=== PATIENT | male | born 1970 | race African-American/Black ===

== ENCOUNTER → 2023-01-03 12:29 | Outpatient (CLI) | payer MEDICARE, MEDICAID, SELFPAY ==
--- NOTE | 2023-01-03 | DI.RAD_ITS ---
Exam(s) XR FOOT LT COMPLETE EXAM: XR FOOT LT COMPLETE CLINICAL HISTORY: LT FOOT PAIN, M79.672. TECHNIQUE: 2D digital imaging was performed. Three views. COMPARISON: No exams were available for comparison FINDINGS: Exam limited by suboptimal positioning due to patient condition. BONES: No acute fracture is present. No bony destructive lesion is seen. JOINTS: No dislocation present. Hallux valgus 1st metatarsal varus. Overlap of 1st and 2nd toes. SOFT TISSUE: Diffuse swelling. Vascular calcifications. No foreign body or abnormal gas collection. IMPRESSION: No acute abnormality DATA REPOSITORY: RADIATION DOSE DELIVERED:
== END ==
PROVIDERS: PCP Family Medicine; Visit Provider Physician Assistant Medical
DX: M79.672 Pain in left foot (principal)
CPT/HCPCS: 73630

== ENCOUNTER → 2023-01-10 13:58 | Outpatient (BNVA) | payer MEDICARE, MEDICAID, SELFPAY | PROVIDERS: PCP Family Medicine; Referring Provider Family Medicine; Visit Provider Podiatrist | DX: M79.672 Pain in left foot (principal); G80.9 Cerebral palsy, unspecified; M21.41 Flat foot [pes planus] (acquired), right foot; M21.42 Flat foot [pes planus] (acquired), left foot; S90.32XA Contusion of left foot, initial encounter; E11.9 Type 2 diabetes mellitus without complications; M25.572 Pain in left ankle and joints of left foot; M25.472 Effusion, left ankle; L60.2 Onychogryphosis; X58.XXXA Exposure to other specified factors, initial encounter | CPT/HCPCS: 11719; 99203 ==

== ENCOUNTER → 2023-01-24 09:59 | Outpatient (BNVA) | payer MEDICARE, MEDICAID, SELFPAY | PROVIDERS: PCP Family Medicine; Referring Provider Family Medicine; Visit Provider Physical Therapy Assistant ==

== ENCOUNTER → 2023-01-24 10:18 | Outpatient (BNVA) | payer MEDICARE, MEDICAID, SELFPAY | PROVIDERS: PCP Family Medicine; Referring Provider Family Medicine; Visit Provider Podiatrist | DX: S90.32XD Contusion of left foot, subsequent encounter; X58.XXXD Exposure to other specified factors, subsequent encounter; M25.472 Effusion, left ankle; M25.572 Pain in left ankle and joints of left foot; I73.89 Other specified peripheral vascular diseases; E11.9 Type 2 diabetes mellitus without complications; G80.9 Cerebral palsy, unspecified; M21.41 Flat foot [pes planus] (acquired), right foot; M21.42 Flat foot [pes planus] (acquired), left foot; L60.2 Onychogryphosis | CPT/HCPCS: 99213 ==

== ENCOUNTER → 2023-10-25 13:00 | Outpatient (BNVA) | payer MEDICARE, MEDICAID, SELFPAY | PROVIDERS: PCP Family Medicine; Referring Provider Family Medicine; Visit Provider Podiatrist | DX: M79.672 Pain in left foot (principal); L97.529 Non-pressure chronic ulcer of other part of left foot with unspecified severity | CPT/HCPCS: 29580; 29850 ==

== ENCOUNTER 2023-10-25 14:38 | Outpatient (CLI) | payer MEDICARE, MEDICAID, SELFPAY ==
--- NOTE | 2023-10-25 14:37 | DI.RAD_ITS ---
Exam(s) XR FOOT LT COMPLETE EXAM: XR FOOT LT COMPLETE CLINICAL HISTORY: M79.672 Pain in left midfoot.. TECHNIQUE: 2D digital imaging was performed. Three views. COMPARISON: CR XR FOOT LT COMPLETE from 01/03/2023 FINDINGS: Exam is limited by immobility and overlying material. BONES: No acute fracture is present. No bony destructive lesion is seen. JOINTS: No dislocation present. Severe pes planus. Hallux valgus. Second toes overlapping the 1st toe. SOFT TISSUE: Normal. IMPRESSION: Limited exam. Stable appearance of the foot. Acute abnormality. DATA REPOSITORY: RADIATION DOSE DELIVERED:
--- OUTSIDE RECORDS SUMMARY | 2023-10-25 14:40 | XMS_ITS | Encounter Summary ---
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); Type 2 diabetes mellitus without complications ([facility]-CMS) Social History Tobacco Use Types Packs/Day Years Used Date Smoking Tobacco: Never Smokeless Tobacco: Never Interpersonal Safety Answer Date Record ed Physically Hurt Never 10/07/2019 Verbally Threaten Not on file 10/07/2019 Sex and Gender Information Value Date Recorded Sex Assigned at Not on file Gender Identity Male 06/12/2019 8:16 EDT Sexual Orientation Not on file documented as of this encounter Functional Status Functional Status Response Date of Assess ment Are you deaf or do you have serious difficulty h earing? No 03/09/2021 Because of a physical, menta l, or emotional condition, does this person have difficulty doing errands alone such as visiting a doctor's office or shopping? Yes 02/10/2016 Cognitive Status Response Date of Assessm ent Because of a physical, menta l, or emotional condition, does this person have serious difficulty concentrating, remembering, or making decisions? No 02/10/2016 documented as of this encounter Plan of Treatment Not on file documented as of this encounter Procedures Procedure Name Priority Date/Time Associated Diagnosis Comments VITAMIN D (25,[place]) Today 05/07/2023 10: 45 EST 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HCC-CMS) Type 2 diabetes mellitus without complications (HCC-CMS) COMPLETE BLOOD COUNT AND DIFFERENTIAL Today 05/07/2023 10:45 EST 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HCC-CMS) Type 2 diabetes mellitus without complications (HCC-CMS) PSA SCREEN Today 05/07/2023 10:45 EST 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HCC-CMS) Type 2 diabetes mellitus without complications (HCC-CMS) LIPID PROFILE (INCLUDES CHOLESTEROL, TRIGLYCERIDES, HDL, LDL) Today 05/07/2023 10:45 EST 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HCC-CMS) Type 2 diabetes mellitus without complications (HCC-CMS) COMPREHENSIVE METABOLIC PANEL (CMP) Today 05/07/2023 10:45 EST 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HCC-CMS) Type 2 diabetes mellitus without complications (HCC-CMS) documented in this encounter Results * LIPID PROFILE (INCLUDES CHOLESTEROL, TRIGLYCERIDES, HDL, LDL) (05/07/2023 10:45 EST) Cholesterol 120 <200 mg/dL 05/07/2023 16:55 [facility] Comment:Note that therapeuti c goals will differ between patients based on cardiac risk factors and current medical therapy. HDL 45 >=40 mg/dl 05/07/2023 16:55 [facility] Comment:Note that therapeuti c goals will differ between patients based on cardiac risk factors and current medical therapy. LDL, Calculated 53 <160 mg/dL 16:55 [facility] Comment:Note that therapeuti c goals will differ between patients based on cardiac risk factors and current medical therapy. Triglyceride 108 <=150 mg/dL 05/07/2023 16:55 [facility] Comment:Note that therapeuti c goals will differ between patients based on cardiac risk factors and current medical therapy. Chol/HDL Ratio 2.7 See Note 05/07/2023 16:55 [facility] Comment: NOTE: Desirable Ratio = <4.1 Patient At Risk Ratio = >5.0(Males) ?>6.0(Females) Non HDL Cholesterol 75 <160 mg/dL 05/07/2023 16:55 [facility] Comment:Note that therapeuti c goals will differ between patients based on cardiac risk factors and current medical therapy. Blood VENOUS BLOOD / Unknown 05/07/2023 10:45 EST 05/07/2023 16:27 EST Suyapa Duarte MD CHEMISTRY & BLOOD GA S ORDERABLES Performing Organization Address City/State/[facility] Co de Phone Number [facility] [address] [place] [address] * COMPREHENSIVE METABOLIC PANEL (CMP) (05/07/2023 10:45 EST) Sodium 140 136 - 145 mmol/L 05/07/2023 16:55 [facility] Potassium 4.5 3.5 - 5.0 mmol/L 05/07/2023 16:55 [facility] Chloride 103 96 - 110 mmol/L 05/07/2023 16:55 [facility] CO2 Total 28 22 - 32 mmol/L 05/07/2023 16:55 [facility] Glucose 92 70 - 99 mg/dl 05/07/2023 16:55 [facility] BUN 20 10 - 26 mg/dL 05/07/2023 16:55 [facility] Creatinine 0.85 0.66 - 1.25 mg/dL 05/07/2023 16:55 [facility] eGFR 105 >60 mL/min/1.7 3m2 05/07/2023 16:55 [facility] Total Protein 7.0 6.3 - 8.2 g/dL 05/07/2023 16:55 [facility] Albumin 4.3 3.4 - 4.9 g/dL 05/07/2023 16:55 [facility] Alkaline Phosphatase 64 38 - 126 U/L 05/07/2023 16:55 [facility] AST 32 15 - 46 U/L 05/07/2023 16:55 [facility] ALT 34 <50 U/L 05/07/2023 16:55 [facility] Bilirubin, Total 0.5 <1.4 mg/dL 05/07/19 16:55 [facility] Calcium 10.1 8.5 - 10.5 mg/dL 05/07/2023 16:55 [facility] Albumin/Globulin Ratio 1.6 1.0 - 2.5 05/07/2023 16:55 [facility] Anion Gap 9 5 - 14 mmol/L 05/07/2023 16:55 [facility] Blood VENOUS BLOOD / Unknown 05/07/2023 10:45 EST 05/07/2023 16:27 EST Suyapa Duarte MD CHEMISTRY & BLOOD GA S ORDERABLES Performing Organization Address City/State/[facility] Co de Phone Number [facility] [address] [place] [address] * (ABNORMAL) PSA SCREEN (05/07/2023 10:45 EST) PSA 3.720(H) <=3.500 ng/mL 05/07/2023 17:[address] [facility] Blood VENOUS BLOOD / Unknown 05/07/2023 10:45 EST 05/07/2023 16:[address] [facility] - 05/07/2023 17:29 EST NOTE: Serum PSA concentration should not be interpreted as absolute evidence for the presence or absence of malignant disease. Assayed on Interview Rocket [id number] using chemiluminescent technology.??Values obtained by using different assay methods cannot be used interchangeably. ?? Suyapa Duarte MD CHEMISTRY & BLOOD GA S ORDERABLES [facility] [address] [place] [address] * VITAMIN D (25,[place]) (05/07/2023 10:45 EST) Pathologist [facility] 25OH Vitamin D Tot 74 30 - 100 ng/mL 05/07/2023 17:21 [facility] Blood VENOUS BLOOD / Unknown 05/07/2023 10:45 EST 05/07/2023 16:27 EST Suyapa Duarte MD CHEMISTRY & BLOOD SC S ORDERABLES Performing Organization Address City/[facility]/ZIP Co de Phone Number [facility] [address] [place] [address] * (ABNORMAL) COMPLETE BLOOD COUNT AND DIFFERENTIAL (05/07/2023 10:45 EST) [facility] WBC 8.94 4.00 - 10.40 K/cmm 05/07/2023 16:36 [facility] RBC 4.68 4.36 - 5.78 M/cmm 05/07/2023 16:36 [facility] Hemoglobin 14.4 13.8 - 17.3 g/dL 05/07/2023 16:36 [facility] HCT 43.6 39.5 - 50.2 % 05/07/2023 16:36 [facility] MCV 93 81 - 95 fL 05/07/2023 16:36 [facility] MCH 30.8 27.6 - 33.0 pg 05/07/2023 16:36 [facility] MCHC 33.0 32.8 - 36.4 g/dL 05/07/2023 16:36 [facility] RDW-CV 15.4(H) <14.2 % 05/07/2023 16:36 [facility] RDW-SD 52.4(H) <46.0 fl 05/07/2023 16:36 [facility] PLT 163 141 - 377 K/cmm 05/07/2023 16:36 [facility] MPV 12.5 9.5 - 12.7 fL 05/07/2023 16:36 [facility] % Neutrophils 49.4 % 05/07/2023 16:36 [facility] % Lymphocytes 40.5 % 05/07/2023 16:36 [facility] % Monocytes 7.9 % 05/07/2023 16:36 [facility] % Eosinophils 1.3 % 05/07/2023 16:36 [facility] % Basophils 0.7 % 05/07/2023 16:36 [facility] % Immature Grans 0.2 % 05/07/19 16:36 [facility] Absolute Neutrophils 4.41 2.20 - 8.85 K/cmm 05/07/2023 16:36 [facility] Absolute Lymphocytes 3.62(H) 1.09 - 3.30 K/cmm 05/07/2023 16:36 [facility] Absolute Monocytes 0.71 0.10 - 0.80 K/cmm 05/07/2023 16:36 [facility] Absolute Eosinophils 0.12 0.03 - 0.61 K/cmm 05/07/2023 16:36 [facility] ABS Basophils 0.06 0.01 - 0.11 K/cmm 05/07/2023 16:36 [facility] Absolute Immature Grans 0.02 0.00 - 0.06 K/cmm 05/07/2023 16:36 [facility] Type of Differential: Auto 05/07/2023 16:36 [facility] Blood VENOUS BLOOD / Unknown 05/07/2023 10:45 EST 05/07/2023 16:27 EST Suyapa Duarte MD PACKAGES & DNA PROBE ORDERABLES [facility] [address] [place] [address] documented in this encounter Visit Diagnoses Diagnosis 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HCC-CMS) Congenital quadriplegia Type 2 diabetes mellitus without complications (HCC-CMS) Type II or unspecified type diabetes mellitus without mention of complication, not stated as uncontrolled documented in this encounter Care Teams Scientific Editor Relationship Specialty Start Date End Date Suyapa Duarte MD [address] [place] [phone] PCP - General Family Medicine - Primary Care 03/09/21 documented as of this encounter
--- OUTSIDE RECORDS SUMMARY | 2023-10-25 14:40 | XMS_ITS | Encounter Summary ---
Author Organization [facility] Address [address] [place] [address] Care Team Providers Care Fbi Investigator Name Role Phone Suyapa Duarte MD Primary Care Provider [phone] Reason for Referral * Medication Prior Authorization (Routine/Next Available) - Authorized Specialty Diagnoses / Procedures Referred By Rubina perkins Referred To Contact Physical Medicine and Rehab Diagnoses 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HCC-CMS) Cora Foster MD [address] [place] [phone] [facility] [place] [address] [place] [address] Referral ID Status Reason Start Date Expiration Date Visits Requested Visits Authorized [id number] Authorized Medication Prior Authorization 2 04/05/2023 1 1 Question Answer Medication to be Prior Authorized: Botox A 300 units Comments The purpose of this request is to inform precertification staff that the requested service needs to be reviewed for prior-authorization. Reason for Visit * Reason Comments Follow-up * Medication Prior Authorization (See Order Priority) - Authorization Not Required Specialty Diagnoses / Procedures Referred By Rubina perkins Referred To Contact Physical Medicine and Rehab Diagnoses Spasticity Cora Foster MD [address] [place] [phone] [facility] [address] [place] [address] Referral ID Status Reason Start Date Expiration Date Visits Requested Visits Authorized [id number] Authorization Not Required Medication Prior Authorization 2 1 1 Encounter Details Date Type Department Care Team (Latest Contact Info) Description 02/02/2022 13:00 EST Procedure visit [facility] Physical Medicine & Rehabilitation - [address] [place] [address] Cora Foster MD [address] [place] [phone] 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HCC-CMS) (Primary Dx) Social History Tobacco Use Types Packs/Day Years [...] No 02/10/2016 documented as of this encounter Progress Notes * Cora Foster MD - 02/02/2022 1300 EST [facility] Subjective: Patient ID: Janes Gooden is an 51 y.o.. male Chief Complaint Patient presents with ??? Follow-up HPI Janes Gooden returns for follow-up of his spastic quadriplegic cerebral palsy. His last evaluation and treatment was on 11/03/2021. He received 300 units of Botox. Janes reports he felt the Botox definitely decrease the tightness in his legs and makes him feel more confident and consistent with his transfer movements which he gets partial assist for. He presently is feeling the return of some of the early tightness. He has had good carryover so farfrom his last Botox injections. He is accompanied here today by his primary caregiver and one of his staff managers, Ruiz and Ankit, and their observations are that his transfers have really been staying consistently better. The identified that it is helpful to make sure he has voided if needed before he attempts to transfer thushis spasticity does not kick in in the middle of the transfer if his bladder is emptying into his protective garment. He has had no return of shoulder pain. I also note he has been spending a bit more time resting in bed instead of falling asleep in his chair and feels like that adds to stretching his legs out some. The decision was to not proceed with his standing frame at home as it was not something he could consistently access as it would take 2 people to get him in and out of it safely and also they were concerned about the fatigue that it would create for him. Has had no skin breakdown. Still managing in his apartment with staff support. Patient Active Problem List Diagnosis ??? 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HCC-CMS) ([facility]) No past medical history on file. Past Surgical History: Procedure Laterality Date ??? HIP SURGERY ??? HIP SURGERY ??? SPINE SURGERY gavin holland Family history: as per EHR Social history: as per EHR Current Outpatient Medications Medication Sig Note Dispense Refill ??? acetaminophen (TYLENOL) 325 mg tablet Take 325 mg by mouth as needed prn 05/10/2016: PRN per patient ??? allopurinol (ZYLOPRIM) 100 mg tablet Take 200 mg by mouth daily. 200 mg AM ??? atenolol (TENORMIN) 50 mg tablet Take 100 mg by mouth daily. ??? botulinum toxin Type A (BOTOX) 100 unit injection Inject into the muscle. ??? Mgbbrjt-Rybzuidgx-Unlx 333-133-5 mg Tab Take 2 Tabs by mouth daily. ??? celecoxib (CELEBREX) 100 mg capsule Take 100 mg by mouth as needed. ??? diclofenac-misoprostoL (ARTHROTEC 50) 50-200 mg-mcg per tablet Take 1 Tab by mouth 2 times daily as needed. ??? divalproex (DEPAKOTE) 500 mg delayed release tablet Take 500 mg by mouth 2 times daily. ??? ergocalciferol, vitamin D2, (VITAMIN D2 ORAL) Take 50,000 Int'l Units by mouth. Biweekly ??? levothyroxine (SYNTHROID) 112 mcg tablet Take 112 mcg by mouth daily. ??? lisinopriL (PRINIVIL) 20 mg tablet Take 20 mg by mouth daily. ??? Magnesium Oxide 84.5 mg (140 mg) capsule Take by mouth 4 times daily. ??? METFORMIN HCL (METFORMIN ORAL) Take 500 mg by mouth 2 times daily. ??? OMEGA-3 FATTY ACIDS/FISH OIL (OMEGA 3 FISH OIL ORAL) Take by mouth 2 times daily. ??? oxybutynin (DITROPAN XL) 15 mg CR tablet Take 15 mg by mouth daily. ??? potassium chloride (KLOR-CON) 20 mEq packet Take 20 mEq by mouth 2 times daily ??? simvastatin (ZOCOR) 40 mg tablet Take 40 mg by mouth every evening. ??? triamterene-hydrochlorothiazide (MAXZIDE) 75-50 mg per tablet Take 1 Tab by mouth daily. ??? VITAMIN B COMPLEX (B-50 COMPLEX ORAL) Take by mouth daily. No current facility-administered medications for this visit. Allergies Allergen Reactions ??? Antifungal [Undecylenic Ac-Zinc Undecylena] All oral antifungals ??? Asa [Aspirin] ??? Chocolate Flavor ??? Ibuprofen ??? Lactose Intolerance (Lactase) ??? Naproxen ??? Other - See Comments tuna ??? Salicylates ??? Tomato Diarrhea ??? Sulfa (Sulfonamide Antibiotics) Swelling Swelling of lower lip ROS - See HPI Objective: No data found. There is no height or weight on file to calculate BMI. Physical Exam Alert and fully participatory and cooperative with exam and procedure Speech continues with some baseline dysarthria. He is able to communicate needs and questions will. Spastic quadriplegia Continued hip and knee flexion contractures. Strong resistance to stretch of his hamstrings with 4 at maximum endrange. Today his knee flexion contractures keep an amount of about between 30 to 40 degrees of full extension. Did not measure witha goniometer today. In the clinic setting he is a full assist over to the exam table with both of his providers helpingwith that transfer. He can partially assist with turning over onto his stomach. Injections are donewith him on his stomach. Assessment: Janes Gooden is a 51-year-old gentleman with spastic quadriplegic CP. Responding to Botox injections in his posterior thigh muscles since January 2008. Did well with the last injections. He is appropriate for repeat treatment today. Botox 300 units was injected without complication. Please see separate procedure note. Prior authorization is being requested for 300 units for next planned injection. Reviewed and reinforced importance of continuing with his stretching support by staff. Plan: Encounter Diagnoses Name Primary? 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HCC-CMS) ([facility]) Yes Med Orders Placed This Visit and Additions to the Medication List Medications ??? botulinum toxin Type A (BOTOX) injection 300 Units Other Orders Placed This Visit Procedures ??? Ambulatory Clinic Admin Med Prior Authorization Request ([id number]) Future Appointments Date Time Provider Department Center 04/27/2022 13:45 Cora Foster MD [facility] None Portions of this document have been prepared with speech recognition software or keyboard sql database programmer techniques. Minor irregularities or keyboarding misprints may be present. I spent a total of 10 minutes on the date of this encounter meeting with the patient and reviewing documentation/coordinating care as described in the above note. This was separate from any procedures performed at the time of the visit. documented in this encounter Procedure Notes * Cora Foster MD - 02/02/2022 1300 EST Procedure: Procedures After reviewing history and exam as per progress note, we proceeded with Botulinum Toxin injectionsas reviewed below. Botulinum Toxin Injection Procedure Note Pre-Procedure Diagnosis: Spastic tetraplegia Indications: spasticity that adversely impacts function Procedure Details Consent was obtained after discussing possible side effects and complications including risk for systemic absorption, generalized weakness, swallowing dysfunction, and respiratory suppression. The limb(s) for injection were identified and a time out called to re-identify the correct limb forinjection. After prepping the skin with alcohol overlying the following muscles, botlinum toxin wasinjected intramuscularly using EMG needle guidance as follows. EMG guidance is used for all muscles and is required to confirm muscle location and greatest efficacy of dose. Pts with spasticity need careful localizaton of the most active muscle fascicles. US guidance is necessary in those areas where localization is difficult just by EMG and anatomy, toavoid at risk structures such as arteries, veins , nerves. Additionally, in muscles that have had repeated injections, to assess the areas that are less fibrotic and thus more receptive to further Botox. US guidance used in combination with EMG needle guidance at muscles if documented below (US). Images saved in short axis view if noted () Position: Prone on exam table. Blue needle ?? 04/29/20 ??07/29/2020 01/21/21 04/15/21 07/28/21 11/03/21 02/02/2022 Left ? Semimemb ??75 75 75 100 100 100 100 LHBF ??50 ??75 75 50 50 50 50 SH BF ??25 ?? Right ? Semimem ??75 ??75 75 100 100 100 100 LH BF ??50 ??75 75 50 50 50 50 SH BF ??25 ?? Total ??300 ??300 300 300 300 300 300 Total botox units injected: 300 Total botox units wasted: 0 Plan: Return to clinic for assessment of Botox efficacy and repeat Botox injections in 3 months. Botox 300 units was injected without complication. Prior authorization is being requested for 300 units for next planned injection. Future Appointments Date Time Provider Department Center 04/27/2022 13:45 [facility] documented in this encounter Plan of Treatment Scheduled Referrals Name Type Priority Associated Diagnoses Order Schedule AMB CONS/FOLLOW UP CLINIC ADMIN MED PRIOR AUTHORIZATION REQUEST Outpatient Referral Routine/Next Available 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HCC-CMS) ([facility]) Expected: 02/09/2022 (Approximate), Expires: 02/02/2023 documented as of this encounter Visit Diagnoses Diagnosis 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HCC-CMS)- Primary Congenital quadriplegia documented in this encounter Administered Medications Inactive Administered Medications - up to 3 most recent administrations Medication Order MAR Action Action Date Dose Rate Site botulinum toxin Type A (BOTOX) injection 300 Units 300 Units, intramuscular, NOW X1, 1 dose, On Marie 02/02/22 at 0000, Routine Given 02/02/2022 13:29 EST 300 Units documented in this encounter Care Teams Fbi Investigator Relationship Specialty Start Date End Date Suyapa Duarte MD [address] [place] [phone] PCP - General Family Medicine - Primary Care 03/09/21 documented as of this encounter
--- OUTSIDE RECORDS SUMMARY | 2023-10-25 14:40 | XMS_ITS | Encounter Summary ---
Author Organization [facility] Address [address] [place] [address] Care Team Providers Care Molded Frames Assembler Name Role Phone Suyapa Duarte MD Primary Care Provider [phone] Encounter Details Date Type Department Care Team (Latest Contact Info) Description 11/08/2022 13:51 EDT - 11/08/2022 23:59 EDT Hospital Encounter [facility] - Main [address] [address] Signal Worker, [facility] Discharge Disposition: Home or Self Care Social History Tobacco Use Types Packs/Day Years [...] No 02/10/2016 documented as of this encounter Medications at Time of Discharge Medication Sig Dispensed Refills Start Date End Date acetaminophen (TYLENOL) 325 mg tablet Take 1 Tablet by mouth as needed. prn allopurinol (ZYLOPRIM) 100 mg tablet Take 2 Tablets by mouth daily. 200 mg AM atenolol (TENORMIN) 50 mg tablet Take 2 Tablets by mouth daily. botulinum toxin Type A (BOTOX) 100 unit injection Inject into the muscle. Nwkacin-Ogootidaj-Zvhn 333-133-5 mg Tab Take 2 Tabs by mouth daily. celecoxib (CELEBREX) 100 mg capsule Take 1 Capsule by mouth as needed. diclofenac-misoprostoL (ARTHROTEC 50) 50-200 mg-mcg per tablet Take 1 Tablet by mouth 2 times daily as needed. divalproex (DEPAKOTE) 500 mg delayed release tablet Take 1 Tablet by mouth 2 times daily. ergocalciferol, vitamin D2, (VITAMIN D2 ORAL) Take 50,000 Int'l Units by mouth. Biweekly levothyroxine (SYNTHROID) 112 mcg tablet Take 1 Tablet by mouth daily. lisinopriL (PRINIVIL) 20 mg tablet Take 1 Tablet by mouth daily. Magnesium Oxide 84.5 mg (140 mg) capsule Take by mouth 4 times daily. METFORMIN HCL (METFORMIN ORAL) Take 500 mg by mouth 2 times daily. 07/14/2010 OMEGA-3 FATTY ACIDS/FISH OIL (OMEGA 3 FISH OIL ORAL) Take by mouth 2 times daily. oxybutynin (DITROPAN XL) 15 mg CR tablet Take 1 Tablet by mouth daily. potassium chloride (KLOR-CON) 20 mEq packet Take 20 mEq by mouth 2 times daily. simvastatin (ZOCOR) 40 mg tablet Take 1 Tablet by mouth every evening. triamterene-hydrochloroth iazide (MAXZIDE) 75-50 mg per tablet Take 1 Tablet by mouth daily. VITAMIN B COMPLEX (B-50 COMPLEX ORAL) Take by mouth daily. documented as of this encounter Discharge Disposition Disposition Code Departure Means Destination Home or Self Care documented in this encounter Plan of Treatment Not on file documented as of this encounter Visit Diagnoses Not on filedocumented in this encounter Care Teams Molded Frames Assembler Relationship Specialty Start Date End Date Suyapa Duarte MD [address] [place] [phone] PCP - General Family Medicine - Primary Care 03/09/21 documented as of this encounter
--- OUTSIDE RECORDS SUMMARY | 2023-10-25 14:40 | XMS_ITS | Clinical Summary ---
Author Organization [facility] Address [address] [place] [address] Care Team Providers Care Director Personal Name Role Phone Suyapa Duarte MD Primary Care Provider [phone] Allergies Active Allergy Reactions Criticality Noted Date Comments Undecylenic Ac-Zinc Undecylena 08/27/2009 All oral antifungals Aspirin 08/11/2009 Chocolate Flavor 10/25/2010 Ibuprofen 08/11/2009 Lactose Intolerance (Lactase) 08/11/2009 Naproxen 08/11/2009 Other - See Comments 10/25/2010 tuna Salicylates 08/11/2009 Sulfa (Sulfonamide Antibiotics) Swelling Low 07/29/2020 Swelling of lower lip Tomato Diarrhea 08/06/2019 Medications Medication Sig Dispensed Refills Start Date End Date Status divalproex (DEPAKOTE) 500 mg delayed release tablet Take 1 Tablet by mouth 2 times daily. Active atenolol (TENORMIN) 50 mg tablet Take 2 Tablets by mouth daily. Active allopurinol (ZYLOPRIM) 100 mg tablet Take 2 Tablets by mouth daily. 200 mg AM Active potassium chloride (KLOR-CON) 20 mEq packet Take 20 mEq by mouth 2 times daily. Active VITAMIN B COMPLEX (B-50 COMPLEX ORAL) Take by mouth daily. Active triamterene-hydrochlo rothiazide (MAXZIDE) 75-50 mg per tablet Take 1 Tablet by mouth daily. Active acetaminophen (TYLENOL) 325 mg tablet Take 1 Tablet by mouth as needed. prn Active METFORMIN HCL (METFORMIN ORAL) Take 500 mg by mouth 2 times daily. 07/14/2010 Active Tbgerah-Zdvbhvoyb-Hmb c 333-133-5 mg Tab Take 2 Tabs by mouth daily. Active simvastatin (ZOCOR) 40 mg tablet Take 1 Tablet by mouth every evening. Active celecoxib (CELEBREX) 100 mg capsule Take 1 Capsule by mouth as needed. Active oxybutynin (DITROPAN XL) 15 mg CR tablet Take 1 Tablet by mouth daily. Active OMEGA-3 FATTY ACIDS/FISH OIL (OMEGA 3 FISH OIL ORAL) Take by mouth 2 times daily. Active levothyroxine (SYNTHROID) 112 mcg tablet Take 1 Tablet by mouth daily. Active Magnesium Oxide 84.5 mg (140 mg) capsule Take by mouth 4 times daily. Active botulinum toxin Type A (BOTOX) 100 unit injection Inject into the muscle. Active ergocalciferol, vitamin D2, (VITAMIN D2 ORAL) Take 50,000 Int'l Units by mouth. Biweekly Active lisinopriL (PRINIVIL) 20 mg tablet Take 1 Tablet by mouth daily. Active diclofenac-misoprosto L (ARTHROTEC 50) 50-200 mg-mcg per tablet Take 1 Tablet by mouth 2 times daily as needed. Active Hospital, Clinic, or Other Facility Administered Medication Ordered Dose Route Frequency Start Date End Date Status botulinum toxin Type A (BOTOX) injection 300 Units 300 Units IM NOW X1 10/23/2023 10/23/19 24 Ended Active Problems Patient Care Coordination No te Formatting of this note migh t be different from the original. Call father's (Tyler) cellphone at [phone] for all appointment scheduling/questions; Father's address is [address] [place] [address] Patient has given permission for [facility] to verbally discuss the following information with Desiree Gooden who has the following relationship to the patient: Mother: Scheduling/Appt/Billing/Payment Information (does not include clinical information unless specifically indicated with separate option) Permission remains in effect until the patient elects to revoke it. 2021-Verified NON-ACO [place] Medicaid TCN:[id number] Bronson Cobosherminia 04/19/2021 16:31 Problem Noted Date Diagnosed Date 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HCC-CMS) Encounters Date Type Department Care Team Description 10/23/2023 15:15 EDT Procedure visit [facility] Physical Medicine & [place] [address] [place] [address] Mauricio Antonio MD Spasticity (Primary Dx) from Last 3 Months Surgical History Surgery Date Site/Laterality Comments SPINE SURGERY alonso rods HIP SURGERY HIP SURGERY Social History Tobacco Use Types Packs/Day Years Used Date Smoking Tobacco: Never Smokeless Tobacco: Never Interpersonal Safety Answer Date Record ed Physically Hurt Never 10/07/2019 Verbally Threaten Not on file 10/07/2019 Sex and Gender Information Value Date Recorded Sex Assigned at Not on file Gender Identity Male 06/12/2019 8:16 EDT Sexual Orientation Not on file Obstetrics History Last Filed Vital Signs Vital Sign Reading Time Taken Comments Blood Pressure 122/85 03/09/2021 0346 EST Pulse 78 03/09/2021 0114 EST Temperature 35.9 ??C (96.6 ??F) 03/09/2021 0114 EST Respiratory Rate 18 03/09/2021 0114 EST Oxygen Saturation 94% 03/09/2021 0346 EST Inhaled Oxygen Concentration - - Weight 68.9 kg (152 lb) 05/10/2016 1553 EST Height - - Body Mass Index - - Plan of Treatment Health Maintenance Due Date Last Done Comments Hepatitis B Vaccine (1 of 3 - 19+ 3-dose series) 1989 COVID-19 Vaccine (2022-2 4 season) 2022 01/23/2022, 08/12/2021, 12/31/2020, Additional history exists Hepatitis C Screen Completed 07/20/2021 Procedures Procedure Name Priority Date/Time Associated Diagnosis Comments HEPATITIS C AB W REFLEX TO HCV RNA BY PCR Today 07/20/2021 10:00 EDT 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HCC-CMS) (HCC) Type 2 diabetes mellitus without complications (HCC-CMS) (HCC) Essential (primary) hypertension from Last 3 Months or Most Recently Relevant to Health Maintenance Results * HEPATITIS C AB W REFLEX TO HCV RNA BY PCR (07/20/2021 10:00 EDT) Hep C Antibody Negative Negative 07/20/2021 13:08 EDT [facility] Blood VENOUS BLOOD / Unknown 07/20/2021 10:00 EDT 07/20/2021 10:44 EDT Suyapa Duarte MD CHEMISTRY & BLOOD GA S ORDERABLES [facility] [address] [place] [address] from Last 3 Months or Most Recently Relevant to Health Maintenance Care Teams Director Personal Relationship Specialty Start Date End Date Suyapa Duarte MD [address] [place] [phone] PCP - General Family Medicine - Primary Care 03/09/21
--- OUTSIDE RECORDS SUMMARY | 2023-10-25 14:40 | XMS_ITS | Encounter Summary ---
Author Organization [facility] Address [address] [place] [address] Care Team Providers Care Lead Solutions Architect Name Role Phone Suyapa Duarte MD Primary Care Provider [phone] Reason for Referral * Medication Prior Authorization (Routine/Next Available) - Authorized Specialty Diagnoses / Procedures Referred By Rubina perkins Referred To Contact Physical Medicine and Rehab Diagnoses 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[facility]-CMS) Cora Foster MD [address] [place] [phone] [facility] [place] [address] [place] [address] Referral ID Status Reason Start Date Expiration Date Visits Requested Visits Authorized [id number] Authorized Medication Prior Authorization 3 1 1 Question Answer Medication to be Prior Authorized: Botox A 300 units Comments The purpose of this request is to inform precertification staff that the requested service needs to be reviewed for prior-authorization. Reason for Visit * Reason Comments Follow-up Botox Injection * Medication Prior Authorization (Routine/Next Available) - Authorized Specialty Diagnoses / Procedures Referred By Rubina perkins Referred To Contact Physical Medicine and Rehab Diagnoses 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[facility]-CMS) Cora Foster MD [address] [place] [phone] [facility] [address] [place] [address] Referral ID Status Reason Start Date Expiration Date Visits Requested Visits Authorized [id number] Authorized Medication Prior Authorization 2 04/05/2023 1 1 Encounter Details Date Type Department Care Team (Latest Contact Info) Description 05/24/2022 11:15 EDT Procedure visit [facility] Physical Medicine [place] [address] Cora Foster MD [address] [place] [phone] 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HCC-CMS) (Primary [...] Progress Notes * Cora Foster MD - 05/24/2022 1115 EDT [facility] Subjective: Patient ID: Janes Gooden is an 51 y.o.. male Chief Complaint Patient presents with ??? Follow-up ??? Botox Injection HPI Janes Gooden returns for follow-up of his spastic quadriplegic cerebral palsy. His last evaluation and treatment was on 02/02/2022. He received 300 units of Botox. He reports a good response. His transfer is always feels a little less challenging once the Botox is back in. Although this appointment he had to delay a few times and he is more than 3 months out, actually almost 16 weeks out he still feels his transfers are pretty stable. He did have a day a weekand a half ago that he is said his legs felt weaker. He states his staff are continuing to work on his stretches He has had no recurrence of his shoulder strain. His mother accompanies him to the appointment today. Patient Active Problem List Diagnosis ??? 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HCC-CMS) ([facility]) No past medical history on file. Past [...] unit injection Inject into the muscle. ??? Kwegjdg-Kkwwgotwd-Bczv 333-133-5 mg Tab Take 2 Tabs by [...] (B-50 COMPLEX ORAL) Take by mouth daily. Current Facility-Administered Medications Medication Dose Route Frequency Provider Last Rate Last Admin ??? botulinum toxin Type A (BOTOX) injection 300 Units 300 Units intramuscular Now Cora Foster MD Allergies Allergen Reactions ??? Antifungal [Undecylenic Ac-Zinc [...] weight on file to calculate BMI. Physical Exam-exam repeated and stable Alert and fully participatory and cooperative with [...] In the clinic setting he is a mod-max assist over to the exam table with both of his mom and our medical laboratory technician helping with that transfer. He can partially assist with turning over onto his stomach. Injections are done with him on his stomach. Assessment: Janes Gooden is a 51-year-old gentleman with spastic quadriplegic CP. Responding to Botox injections in his posterior thigh muscles since January 2008. Has been relatively stable and continues torespond well to the Botox. He is appropriate for repeat treatment today. Botox 300 units was injected without complication. Please see separate procedure note. Prior authorization is being requested for 300 units for next planned injection. Plan: Encounter Diagnoses Name Primary? 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HCC-CMS) ([facility]) Yes Med Orders Placed This Visit and Additions to the Medication List Medications ??? botulinum toxin Type A (BOTOX) injection 300 Units No orders of the defined types were placed in this encounter. Future Appointments Date Time Provider Department Center 08/16/2022 11:15 Cora Foster MD [facility] None Portions of this document have been prepared with speech recognition software or keyboard data quality consultant techniques. Minor irregularities or keyboarding misprints may be present. I spent a total of 10 minutes on the date of this encounter meeting with the patient and reviewing documentation/coordinating care as described in the above note. This was separate from any procedures performed at the time of the visit. documented in this encounter Procedure Notes * Cora Foster MD - 05/24/2022 1115 EDT Procedure: Procedures After reviewing history and exam [...] Prone on exam table. Blue needle ?? 07/28/21 11/03/21 02/02/2022 05/24/22 Left Semimemb 100 100 100 100 LHBF 50 50 50 50 SH BF Right Semimem 100 100 100 100 LH BF 50 50 50 50 SH BF Total 300 300 300 300 Total botox units injected: 300 Total botox units wasted: 0 Plan: Return to clinic for assessment of Botox efficacy and repeat Botox injections in 3 months. Prior authorization is being requested for 300 units for next planned injection. Future Appointments Date Time Provider Department Center 08/16/2022 11:15 Cora Foster MD [facility] None documented in this encounter Plan of Treatment Scheduled Referrals Name Type Priority Associated Diagnoses Order Schedule AMB CONS/FOLLOW UP CLINIC ADMIN MED PRIOR AUTHORIZATION REQUEST Outpatient Referral Routine/Next Available 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HCC-CMS) (HCC) Expected: 06/24/2022 (Approximate), Expires: 05/25/2023 documented as of this encounter Visit Diagnoses Diagnosis 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HCC-CMS)- Primary Congenital quadriplegia documented in this encounter Administered Medications Inactive Administered Medications - up to 3 most recent administrations Medication Order MAR Action Action Date Dose Rate Site botulinum toxin Type A (BOTOX) injection 300 Units 300 Units, intramuscular, NOW X1, 1 dose, On Sun05/24/22 at 0000, Routine Given 05/24/2022 11:41 EDT 300 Units documented in this encounter Care Teams Lead Solutions Architect Relationship Specialty Start Date End Date Suyapa Duarte MD [address] [place] [phone] PCP - General Family Medicine - Primary Care 03/09/21 documented as of this encounter
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
--- OUTSIDE RECORDS SUMMARY | 2023-10-25 14:40 | XMS_ITS | Encounter Summary ---
Author Organization [facility] Address [address] [place] [address] Care Team Providers Care Director Diabetes Name Role Phone Suyapa Duarte MD Primary Care Provider [phone] Encounter Details Date Type Department Care Team (Latest Contact Info) Description 07/20/2021 Lab Requisition [facility] - Main [address] [id number] Suyapa Duarte MD [address] [place] [phone] 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HCC-CMS) (HCC); Type 2 diabetes mellitus without complications (HCC-CMS) (HCC) (HCC-CMS); Essential (primary) hypertension Social History Tobacco Use Types Packs/Day Years [...] Associated Diagnosis Comments VITAMIN D (25,[place]) Today 07/20/2021 10: 00 EDT 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HCC-CMS) (HCC) Type 2 diabetes mellitus without complications (HCC-CMS) (HCC) Essential (primary) hypertension HEPATITIS C AB W REFLEX TO HCV RNA BY PCR Today 07/20/2021 10:00 EDT 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HCC-CMS) (HCC) Type 2 diabetes mellitus without complications (HCC-CMS) (HCC) Essential (primary) hypertension COMPLETE BLOOD COUNT AND DIFFERENTIAL Today 07/20/2021 10:00 EDT 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HCC-CMS) (HCC) Type 2 diabetes mellitus without complications (HCC-CMS) (HCC) Essential (primary) hypertension HIV 1/2 ANTIGEN AND ANTIBODY, 4TH GENERATION Today 07/20/2021 10:00 EDT 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HCC-CMS) (HCC) Type 2 diabetes mellitus without complications (HCC-CMS) (HCC) Essential (primary) hypertension URIC ACID Today 07/20/2021 10:00 EDT 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HCC-CMS) (HCC) Type 2 diabetes mellitus without complications (HCC-CMS) (HCC) Essential (primary) hypertension TSH Today 07/20/2021 10:00 EDT 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HCC-CMS) (HCC) Type 2 diabetes mellitus without complications (HCC-CMS) (HCC) Essential (primary) hypertension HEMOGLOBIN A1C Today 07/20/2021 10:00 EDT 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HCC-CMS) (HCC) Type 2 diabetes mellitus without complications (HCC-CMS) (HCC) Essential (primary) hypertension LIPID PROFILE (INCLUDES CHOLESTEROL, TRIGLYCERIDES, HDL, LDL) Today 07/20/2021 10:00 EDT 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HCC-CMS) (HCC) Type 2 diabetes mellitus without complications (HCC-CMS) (HCC) Essential (primary) hypertension COMPREHENSIVE METABOLIC PANEL (CMP) Today 07/20/2021 10:00 EDT 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HCC-CMS) (HCC) Type 2 diabetes mellitus without complications (HCC-CMS) (HCC) Essential (primary) hypertension documented in this encounter Results * (ABNORMAL) LIPID PROFILE (INCLUDES CHOLESTEROL, TRIGLYCERIDES, HDL, LDL) (07/20/2021 10:00 EDT) Cholesterol 145 <200 mg/dL 07/20/2021 11:20 [facility] Comment:Note that therapeuti c goals will differ between patients based on cardiac risk factors and current medical therapy. HDL 37(L) >=40 mg/dL 07/20/2021 11:20 [facility] Comment:Note that therapeuti c goals will differ between patients based on cardiac risk factors and current medical therapy. LDL, Calculated 55 <160 mg/dL 11:20 [facility] Comment:Note that therapeuti c goals will differ between patients based on cardiac risk factors and current medical therapy. Triglyceride 266(H) <=150 mg/dL 07/20/2021 11:20 [facility] Comment:Note that therapeuti c goals will differ between patients based on cardiac risk factors and current medical therapy. Chol/HDL Ratio 3.9 See Note 07/20/2021 11:20 [facility] Comment: NOTE: Desirable Ratio = <4.1 Patient At Risk Ratio = >5.0(Males) ?>6.0(Females) Non HDL Cholesterol 108 <160 mg/dL 07/20/2021 11:20 [facility] Comment:Note that therapeuti c goals will differ between patients based on cardiac risk factors and current medical therapy. Blood VENOUS BLOOD / Unknown 07/20/2021 10:00 EDT 07/20/2021 10:44 EDT Suyapa Duarte MD CHEMISTRY & BLOOD GA S ORDERABLES [facility] [address] [place] [address] * COMPREHENSIVE METABOLIC PANEL (CMP) (07/20/2021 10:00 EDT) Sodium 136 136 - 145 mmol/L 07/20/2021 11:20 [facility] Potassium 4.3 3.5 - 5.0 mmol/L 07/20/2021 11:20 [facility] Chloride 101 96 - 110 mmol/L 07/20/2021 11:20 [facility] CO2 Total 23 22 - 32 mmol/L 07/20/2021 11:20 [facility] Glucose 99 70 - 100 mg/dL 07/20/2021 11:20 [facility] BUN 15 10 - 26 mg/dL 07/20/2021 11:20 [facility] Creatinine 0.89 0.66 - 1.25 mg/dL 07/20/2021 11:20 [facility] eGFR 104 >60 mL/min/1.7 3m2 07/20/2021 11:20 [facility] Total Protein 7.5 6.3 - 8.2 g/dL 07/20/2021 11:20 [facility] Albumin 4.6 3.4 - 4.9 g/dL 07/20/2021 11:20 [facility] Alkaline Phosphatase 75 38 - 126 U/L 07/20/2021 11:20 [facility] AST 36 15 - 46 U/L 07/20/2021 11:20 [facility] ALT 25 <50 U/L 07/20/2021 11:20 [facility] Bilirubin, Total 0.3 <1.4 mg/dL 05/18/20 22 11:20 EDT [facility] Calcium 9.8 8.5 - 10.5 mg/dL 07/20/2021 11:20 EDT [facility] Albumin/Globulin Ratio 1.6 1.0 - 2.5 07/20/2021 11:20 EDT [facility] Anion Gap 12 5 - 14 07/20/2021 11:20 EDT [facility] Blood VENOUS BLOOD / Unknown 07/20/2021 10:00 EDT 07/20/2021 10:44 EDT Suyapa Duarte MD CHEMISTRY & BLOOD GA S ORDERABLES Performing Organization Address [facility] de Phone Number [facility] [address] [place] [address] * TSH (07/20/2021 10:00 EDT) TSH 0.85 0.47 - 4.68 mIU/L 07/20/2021 11:55 EDT [facility] Blood VENOUS BLOOD / Unknown 07/20/2021 10:00 EDT 07/20/2021 10:44 EDT Narrative [facility] - 07/20/2021 11:55 EDT The results of this assay can be falsely lowered due to the consumption of Biotin. Suyapa uDarte MD CHEMISTRY & BLOOD GA S ORDERABLES Performing Organization Address [facility] [[email or web address]] Co mt Phone Number [facility] [address] [place] [address] * HEPATITIS C AB W REFLEX TO HCV RNA BY PCR (07/20/2021 10:00 EDT) Hep C Antibody Negative Negative 07/20/2021 13:08 EDT [facility] Blood VENOUS BLOOD / Unknown 07/20/2021 10:00 EDT 07/20/2021 10:44 EDT Suyapa Duarte MD CHEMISTRY & BLOOD GA S ORDERABLES Performing Organization Address City/[facility] [[email or web address]] Co de Phone Number [facility] [address] [place] [address] * VITAMIN D (25,OH) (07/20/2021 10:00 EDT) 25OH Vitamin D Tot 68 30 - 100 ng/mL 07/20/2021 11:43 EDT [facility] Blood VENOUS BLOOD / Unknown 07/20/2021 10:00 EDT 07/20/2021 10:44 EDT Suyapa Duarte MD CHEMISTRY & BLOOD GA S ORDERABLES Performing Organization Address [facility] [[email or web address]] Co de Phone Number [facility] [address] [place] [address] * URIC ACID (07/20/2021 10:00 EDT) Pathologist [facility] Uric Acid 4.8 3.9 - 9.0 mg/dL 07/20/2021 11:20 EDT [facility] Blood VENOUS BLOOD / Unknown 07/20/2021 10:00 EDT 07/20/2021 10:44 EDT Suyapa Duarte MD CHEMISTRY & BLOOD GA S ORDERABLES Performing Organization Address [facility] Number [facility] [address] [place] [address] * HIV 1/2 ANTIGEN AND ANTIBODY, 4TH GENERATION (07/20/2021 10:00 EDT) Pathologist [facility] HIV 1 and 2 Antibody/p24 Antigen, 4th Generation Negative Negative 07/20/2021 12:00 EDT [facility] Comment:If acute HIV-1 infec tion is suspected in a high risk patient, submit plasma specimen for HIV-1 RNA quantitation test. Blood VENOUS BLOOD / Unknown 07/20/2021 10:00 EDT 07/20/2021 10:44 EDT Suyapa Duarte MD IMMUNOLOGY AND SEROL OGY ORDERABLES Performing Organization Address [facility]/ZIP Co de Phone Number [facility] [address] [place] [address] * (ABNORMAL) HEMOGLOBIN A1C (07/20/2021 10:00 EDT) [facility] Hemoglobin A1c 6.3(H) <5.7 % 07/20/2021 19:09 [facility] Comment: Glycemic Status References: Normal: ??<5.7% Pre-Diabetes: ??5.7% - 6.4% Diagnostic of Diabetes: ??> or = 6.5% (if confirmed) Est Avg Glucose 134 mg/dL 19:09 [facility] Comment:The eAG represents t he A1c result expressed as average glucose in mg/dL. Blood VENOUS BLOOD / Unknown 07/20/2021 10:00 EDT 07/20/2021 10:44 EDT Suyapa Duarte MD CHEMISTRY & BLOOD GA S ORDERABLES Performing Organization Address City/State/[facility] [[email or web address]] Co de Phone Number [facility] [address] [place] [address] * (ABNORMAL) COMPLETE BLOOD COUNT AND DIFFERENTIAL (07/20/2021 10:00 EDT) [facility] WBC 7.59 4.00 - 10.40 K/cmm 07/20/2021 11:14 [facility] RBC 4.90 4.36 - 5.78 M/cmm 07/20/2021 11:14 [facility] Hemoglobin 14.8 13.8 - 17.3 gm/dL 07/20/2021 11:14 [facility] HCT 44.9 39.5 - 50.2 % 07/20/2021 11:14 [facility] MCV 92 81 - 95 fl 07/20/2021 11:14 [facility] MCH 30.2 27.6 - 33.0 pg 07/20/2021 11:14 [facility] MCHC 33.0 32.8 - 36.4 gm/dL 07/20/2021 11:14 [facility] RDW-CV 14.9(H) <14.2 % 07/20/2021 11:14 [facility] RDW-SD 49.3(H) <46.0 fl 07/20/2021 11:14 [facility] PLT 201 141 - 377 K/cmm 07/20/2021 11:14 [facility] MPV 11.5 9.5 - 12.7 fl 07/20/2021 11:14 [facility] % Neutrophils 57.1 % 07/20/2021 11:14 [facility] % Lymphocytes 32.7 % 07/20/2021 11:14 [facility] % Monocytes 7.6 % 07/20/2021 11:14 [facility] % Eosinophils 1.6 % 07/20/2021 11:14 [facility] % Basophils 0.7 % 07/20/2021 11:14 [facility] % Immature Grans 0.3 % 07/21/19 11:14 [facility] Absolute Neutrophils 4.34 2.20 - 8.85 K/cmm 07/20/2021 11:14 [facility] Absolute Lymphocytes 2.48 1.09 - 3.30 K/cmm 07/20/2021 11:14 [facility] Absolute Monocytes 0.58 0.10 - 0.80 K/cmm 07/20/2021 11:14 [facility] Absolute Eosinophils 0.12 0.03 - 0.61 K/cmm 07/20/2021 11:14 [facility] ABS Basophils 0.05 0.01 - 0.11 K/cmm 07/20/2021 11:14 [facility] Absolute Immature Grans 0.02 0.00 - 0.06 K/cmm 07/20/2021 11:14 [facility] Type of Differential: Auto 07/20/2021 11:14 [facility] Blood VENOUS BLOOD / Unknown 07/20/2021 10:00 EDT 07/20/2021 10:44 EDT Suyapa Duarte MD PACKAGES & DNA PROBE ORDERABLES [facility] [address] [place] [address] documented in this encounter Visit Diagnoses Diagnosis 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HCC-CMS) Congenital quadriplegia Type 2 diabetes mellitus without complications (HCC-CMS) Type II or unspecified type diabetes mellitus without mention of complication, not stated as uncontrolled Essential (primary) hypertension Unspecified essential hypertension documented in this encounter Care Teams Director Diabetes Relationship Specialty Start Date End Date Suyapa Duarte MD [address] [place] [phone] PCP - General Family Medicine - Primary Care 03/09/21 documented as of this encounter
--- OUTSIDE RECORDS SUMMARY | 2023-10-25 14:40 | XMS_ITS | Encounter Summary ---
Author Organization [facility] Address [address] [place] [address] Care Team Providers Care Mat Cleaning Machine Operator Name Role Phone Suyapa Duarte MD Primary Care Provider [phone] Encounter Details Date Type Department Care Team (Latest Contact Info) Description 11/08/2022 [facility] [address] [place] [address] Oliver White MD [address] [place] [phone] Generalized-onset seizures (HCC-CMS) (Primary Dx); Hypothyroidism, unspecified type; Pure hypercholesterolemia Social History Tobacco Use Types Packs/Day Years [...] on file documented as of this encounter Results * (ABNORMAL) COMPREHENSIVE METABOLIC PANEL (CMP) (11/08/2022 13:52 EDT) Sodium 140 136 - 145 mmol/L 11/08/2022 14:35 [facility] Potassium 4.1 3.5 - 5.0 mmol/L 11/08/2022 14:35 [facility] Chloride 104 96 - 110 mmol/L 11/08/2022 14:35 [facility] CO2 Total 22 22 - 32 mmol/L 11/08/2022 14:35 [facility] Glucose 139(H) 70 - 99 mg/dl 11/08/2022 14:35 [facility] BUN 26 10 - 26 mg/dL 11/08/2022 14:35 [facility] Creatinine 1.06 0.66 - 1.25 mg/dL 11/08/2022 14:35 [facility] eGFR 84 >60 mL/min/1.7 3m2 11/08/2022 14:35 [facility] Total Protein 7.0 6.3 - 8.2 g/dL 11/08/2022 14:35 [facility] Albumin 4.2 3.4 - 4.9 g/dL 11/08/2022 14:35 [facility] Alkaline Phosphatase 70 38 - 126 U/L 11/08/2022 14:35 [facility] AST 29 15 - 46 U/L 11/08/2022 14:35 [facility] ALT 29 <50 U/L 11/08/2022 14:35 [facility] Bilirubin, Total 0.5 <1.4 mg/dL 11/09/19 14:35 [facility] Calcium 10.2 8.5 - 10.5 mg/dL 11/08/2022 14:35 [facility] Albumin/Globulin Ratio 1.5 1.0 - 2.5 g/dL 11/08/2022 14:35 EDT [facility] Anion Gap 14 5 - 14 mmol/L 11/08/2022 14:35 [facility] Blood VENOUS BLOOD / Unknown Venipuncture / Unknown 11/08/2022 13:52 EDT 11/08/2022 13:52 EDT Oliver White MD CHEMISTRY & BLOOD GA S ORDERABLES Performing Organization Address City/State/[facility] Co de Phone Number [facility] [address] [place] [address] * (ABNORMAL) LIPID PROFILE (INCLUDES CHOLESTEROL, TRIGLYCERIDES, HDL, LDL) (11/08/2022 13:52 EDT) Cholesterol 126 <200 mg/dL 11/08/2022 14:35 [facility] Comment:Note that therapeuti c goals will differ between patients based on cardiac risk factors and current medical therapy. HDL 35(L) >=40 mg/dl 11/08/2022 14:35 [facility] Comment:Note that therapeuti c goals will differ between patients based on cardiac risk factors and current medical therapy. LDL, Calculated 54 <160 mg/dL 14:35 [facility] Comment:Note that therapeuti c goals will differ between patients based on cardiac risk factors and current medical therapy. Triglyceride 187(H) <=150 mg/dL 11/08/2022 14:35 [facility] Comment:Note that therapeuti c goals will differ between patients based on cardiac risk factors and current medical therapy. Chol/HDL Ratio 3.6 See Note 11/08/2022 14:35 [facility] Comment: NOTE: Desirable Ratio = <4.1 Patient At Risk Ratio = >5.0(Males) ?>6.0(Females) Non HDL Cholesterol 91 <160 mg/dL 11/08/2022 14:35 [facility] Comment:Note that therapeuti c goals will differ between patients based on cardiac risk factors and current medical therapy. Blood VENOUS BLOOD / Unknown Venipuncture / Unknown 11/08/2022 13:52 EDT 11/08/2022 13:52 EDT Oliver White MD CHEMISTRY & BLOOD GA S ORDERABLES [facility] [address] [place] [address] * T3 FREE (11/08/2022 13:52 EDT) T3, Free 3.3 2.8 - 5.3 pg/mL 11/08/2022 21:25 EDT [facility] Blood VENOUS BLOOD / Unknown Venipuncture / Unknown 11/08/2022 13:52 EDT 11/08/2022 13:52 EDT Oliver White MD CHEMISTRY & BLOOD GA S ORDERABLES Performing Organization Address [facility]ZIP Co de Phone Number [facility] [address] [place] [id number] * T4 FREE (11/08/2022 13:52 EDT) T4, Free 1.4 0.8 - 2.2 ng/dL 11/08/2022 14:56 EDT [facility] Blood VENOUS BLOOD / Unknown Venipuncture / Unknown 11/08/2022 13:52 EDT 11/08/2022 13:52 EDT Oliver White MD CHEMISTRY & BLOOD GA S ORDERABLES [facility] [address] [place] [address] * TSH (11/08/2022 13:52 EDT) TSH 0.84 0.47 - 4.68 mIU/L 11/08/2022 15:10 EDT [facility] Blood VENOUS BLOOD / Unknown Venipuncture / Unknown 11/08/2022 13:52 EDT 11/08/2022 13:52 EDT Narrative [facility] - 11/08/2022 15:10 EDT The results of this assay can be falsely lowered due to the consumption of Biotin. Oliver White MD CHEMISTRY & BLOOD GA S ORDERABLES Performing Organization Address [facility]/ZIP Co de Phone Number [facility] [address] [place] [address] * VALPROIC ACID LEVEL (11/08/2022 13:52 EDT) Valproic Acid 60 50 - 100 ug/mL 11/08/2022 14:40 EDT [facility] Blood VENOUS BLOOD / Unknown Venipuncture / Unknown 11/08/2022 13:52 EDT 11/08/2022 13:52 EDT Oliver White MD CHEMISTRY & BLOOD GA S ORDERABLES Performing Organization Address [facility] Co de Phone Number [facility] [address] [place] [address] documented in this encounter Visit Diagnoses Diagnosis Generalized-onset seizures ([facility]-CMS)- Primary Other convulsions Hypothyroidism, unspecified type Pure hypercholesterolemia documented in this encounter Care Teams Mat Cleaning Machine Operator Relationship Specialty Start Date End Date Suyapa Duarte MD [address] [place] [phone] PCP - General Family Medicine - Primary Care 03/09/21 documented as of this encounter
--- OUTSIDE RECORDS SUMMARY | 2023-10-25 14:40 | XMS_ITS | Encounter Summary ---
Author Organization [facility] Address [address] [place] [address] Care Team Providers Care Enterprise Integration Architect Name Role Phone Suyapa Duarte MD Primary Care Provider [phone] Reason for Referral * Consult (STAT) - Authorization Not Required Specialty Diagnoses / Procedures Referred By Contac t Referred To Contact Diagnoses Mauricio Tai MD [address] [place] [phone] Referral ID Status Reason Start Date Expiration Date Visits Requested Visits Authorized [id number] Authorization Not Required Specialty Services Required 4 1 1 Question Answer Scheduling Comments (optional ? describe specific scheduling needs if applicable): Please call parents, not Janes to schedule appointments Reason for Request: Ongoing Botox. Due in late January 2024. Practice Site (External Referral Only): [facility] * Consult (Routine/Next Available) - Authorization Not Required Specialty Diagnoses / Procedures Referred By Contac t Referred To Contact Diagnoses Mauricio Tai MD [address] [place] [phone] Scott Esquivel MD [address] [place] [address] [address] [place] [phone] Referral ID Status Reason Start Date Expiration Date Visits Requested Visits Authorized [id number] Authorization Not Required Specialty Services Required 4 1 1 Question Answer Scheduling Comments (optional ? describe specific scheduling needs if applicable): Please call parents, not Janes to schedule appointments Reason for Request: Ongoing Botox. Due again in late January 2024 Context of referral: Established Problem Reason for referral: Ongoing care Has patient had a previous OUTSIDE of [facility] neurology evaluation, neuroimaging (MRI or CT of brain or spine) or electrodiagnostic testing (EMG, NCS, EEG)? Unsure Reason for Visit * Reason Comments Follow-up Botox Injection * Medication Prior Authorization (Routine/Next Available) - Authorized Specialty Diagnoses / Procedures Referred By Rubina perkins Referred To Contact Diagnoses Spasticity Mauricio Antonio MD [address] [place] [phone] [facility] [address] [place] [address] [place] [address] Referral ID Status Reason Start Date Expiration Date Visits Requested Visits Authorized [id number] Authorized Medication Prior Authorization 4 1 1 Encounter Details Date Type Department Care Team (Late Contact Info) Description 10/23/2023 15:15 EDT Procedure visit [facility] Physical Medicine & Rehabilitation - [address] [place] [address] Mauricio Antonio MD [address] [place] [phone] Spasticity (Primary Dx) Social History Tobacco Use Types [...] No 02/10/2016 documented as of this encounter Patient Instructions * Patient Instructions* Mauricio Antonio MD - 10/23/2023 15:15 EDT -Please follow up with your acura sales consultant regarding your left foot pain and medial foot wound (ideallywithin the next 1-2 weeks) -You were referred [facility] for ongoing Botox. Call this clinic back in 1 month at [phone] if you do not hear about scheduling your next Botox with [facility] or [facility]. -Periodically check with our clinic to see if there is capacity for ongoing Botox in the future (perhaps check every 2-3 months). documented in this encounter Progress Notes * Mauricio Antonio MD - 10/23/2023 1515 EDT Procedure: Procedures After reviewing history and MAS as per notes, we proceeded with Botulinum Toxin injections as reviewed below. Botulinum Toxin Injection Procedure Note [...] Position: Prone on exam table. 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 or [facility]. Patient will follow up with his local acura sales consultant regarding the left medial foot wound and foot pain. This is not a new area of pain for him. He does have a history of impaired glucose tolerance/T2DM and gout. No future appointments. Mauricio Antonio MD documented in this encounter Plan of Treatment Scheduled Referrals Name Type Priority Associated Diagnoses Order Schedule AMB CONS/FOLLOW UP NEUROLOGY Outpatient Referral Routine/Next Available Spasticity Expected: 01/23/2024 (Approximate), Expires: 10/22/2024 AMB CONS/FOLLOW UP PHYSIATRY Outpatient Referral STAT Spasticity Expected: 10/23/2023 (Approximate), Expires: 10/22/2024 documented as of this encounter Visit Diagnoses Diagnosis Spasticity- Primary Abnormal involuntary movements documented in this encounter Administered Medications Inactive Administered Medications - up to 3 most recent administrations Medication Order MAR Action Action Date Dose Rate Site botulinum toxin Type A (BOTOX) injection 300 Units 300 Units, intramuscular, NOW X1, 1 dose, On Tu10/23/23 at 0000, Routine Given 10/23/2023 15:54 EDT 300 Units documented in this encounter Orders Medications Ordered That José Miguel ht Not Have Been Administered Count Last Ordered Date First Ordered Date botulinum toxin Type A (BOTO X) injection 300 Units 1 10/12/2023 documented in this encounter Care Teams Enterprise Integration Architect Relationship Specialty Start Date End Date Suyapa Duarte MD [address] [place] [phone] PCP - General Family Medicine - Primary Care 03/09/21 documented as of this encounter
--- OUTSIDE RECORDS SUMMARY | 2023-10-25 14:40 | XMS_ITS | Encounter Summary ---
Author Organization [facility] Address [address] [place] [address] Care Team Providers Care Parking Attendant Name Role Phone Suyapa Duarte MD Primary Care Provider [phone] Encounter Details Date Type Department Care Team (Late st Contact Info) Description 11/08/2022 Results Only [facility] Services - [facility] [address] [place] [address] Oliver White MD [address] [place] [phone] Social History Tobacco Use Types Packs/Day Years [...] Procedure Name Priority Date/Time Associated Diagnosis Comments HEMOGLOBIN A1C Routine 05/17/2023 11:07 EDT documented in this encounter Results * HEMOGLOBIN A1C (05/17/2023 11:07 EDT) HgB A1C% 5.3 4.0 - 6.0 % [facility] Average Calculated 96 60 - 115 mg/dL [facility] 05/17/2023 11:0 7 EDT Suyapa Duarte MD CHEMISTRY & BLOOD GA S ORDERABLES [facility] [address] [place] [address] documented in this encounter Visit Diagnoses Not on filedocumented in this encounter Care Teams Parking Attendant Relationship Specialty Start Date End Date Suyapa Duarte MD [address] [place] [phone] PCP - General Family Medicine - Primary Care 03/09/21 documented as of this encounter
--- OUTSIDE RECORDS SUMMARY | 2023-10-25 14:40 | XMS_ITS | Encounter Summary ---
Author Organization [facility] Address [address] [place] [address] Care Team Providers Care Sole Layer Name Role Phone Suyapa Duarte MD Primary Care Provider [phone] Encounter Details Date Type Department Care Team (Late st Contact Info) Description 11/08/2022 Orders Only [facility] [address] [place] [address] Oliver White MD [address] [place] [phone] Pure hypercholesterolemia; Hypothyroidism, unspecified type; Generalized-onset seizures (HCC-CMS); Special screening for malignant neoplasm of prostate; Vitamin D deficiency; Hypomagnesemia Social History Tobacco Use Types Packs/Day Years [...] Date/Time Associated Diagnosis Comments VITAMIN D (25,[place]) Routine 11/08/2022 13:52 EDT Vitamin D deficiency T3 FREE Routine 11/08/2022 13:52 EDT Hypothyroidism, unspecified type TSH Routine 11/08/2022 13:52 EDT Hypothyroidism, unspecified type T4 FREE Routine 11/08/2022 13:52 EDT Hypothyroidism, unspecified type PSA SCREEN Routine 11/08/2022 13:52 EDT Special screening for malignant neoplasm of prostate MAGNESIUM Routine 11/08/2022 13:52 EDT Hypomagnesemia VALPROIC ACID LEVEL Routine 11/08/2022 13:52 EDT Generalized-onset seizures (HCC-CMS) LIPID PROFILE (INCLUDES CHOLESTEROL, TRIGLYCERIDES, HDL, LDL) Routine 11/08/2022 13:52 EDT Pure hypercholesterolemia COMPREHENSIVE METABOLIC PANEL (CMP) Routine 11/08/2022 13:52 EDT Pure hypercholesterolemia documented in this encounter Results * MAGNESIUM (11/08/2022 13:52 EDT) Magnesium 2.1 1.7 - 2.8 mg/dL 11/10/2022 15:30 EDT [facility] Blood VENOUS BLOOD / Unknown Venipuncture / Unknown 11/08/2022 13:52 EDT 11/08/2022 13:52 EDT Oliver White MD CHEMISTRY & BLOOD GA S ORDERABLES [facility] [address] [place] [address] * VITAMIN D (25,OH) (11/08/2022 13:52 EDT) 25OH Vitamin D Tot 51 30 - 100 ng/mL 11/13/2022 19:44 EDT [facility] Blood VENOUS BLOOD / Unknown Venipuncture / Unknown 11/08/2022 13:52 EDT 11/08/2022 13:52 EDT Oliver White MD CHEMISTRY & BLOOD GA S ORDERABLES Performing Organization Address [facility] Co de Phone Number [facility] [address] [place] [address] * PSA SCREEN (11/08/2022 13:52 EDT) PSA 2.420 <=3.500 ng/mL 11/13/2022 19:58 EDT [facility] Blood VENOUS BLOOD / Unknown Venipuncture / Unknown 11/08/2022 13:52 EDT 11/08/2022 13:52 EDT Narrative [facility] - 11/13/2022 19:58 EDT NOTE: Serum PSA concentration should not be interpreted as absolute evidence for the presence or absence of malignant disease. Assayed on The car easily beat 5600 using chemiluminescent technology.??Values obtained by using different assay methods cannot be used interchangeably. ?? Oliver White MD CHEMISTRY & BLOOD GA S ORDERABLES Performing Organization Address [facility] Co de Phone Number [facility] [address] [place] [address] * VALPROIC ACID LEVEL (11/08/2022 13:52 EDT) Valproic Acid 60 50 - 100 ug/mL 11/08/2022 14:40 EDT [facility] Blood VENOUS BLOOD / Unknown Venipuncture / Unknown 11/08/2022 13:52 EDT 11/08/2022 13:52 EDT Oliver White MD CHEMISTRY & BLOOD GA S ORDERABLES [facility] [address] [place] [address] * TSH (11/08/2022 13:52 EDT) TSH 0.84 0.47 - 4.68 mIU/L 11/08/2022 15:10 EDT [facility] Blood VENOUS BLOOD / Unknown Venipuncture / Unknown 11/08/2022 13:52 EDT 11/08/2022 13:52 EDT Narrative [facility] - 11/08/2022 15:10 EDT The results of this assay can be falsely lowered due to the consumption of Biotin. Oliver White MD CHEMISTRY & BLOOD GA S ORDERABLES Performing Organization Address [facility] Co de Phone Number [facility] [address] [place] [address] * T4 FREE (11/08/2022 13:52 EDT) T4, Free 1.4 0.8 - 2.2 ng/dL 11/08/2022 14:56 EDT [facility] Blood VENOUS BLOOD / Unknown Venipuncture / Unknown 11/08/2022 13:52 EDT 11/08/2022 13:52 EDT Oliver White MD CHEMISTRY & BLOOD GA S ORDERABLES Performing Organization Address [facility] Co de Phone Number [facility] [address] [place] [address] * T3 FREE (11/08/2022 13:52 EDT) T3, Free 3.3 2.8 - 5.3 pg/mL 11/08/2022 21:[address] [facility] Blood VENOUS BLOOD / Unknown Venipuncture / Unknown 11/08/2022 13:52 EDT 11/08/2022 13:52 EDT Oliver White MD CHEMISTRY & BLOOD GA S ORDERABLES Performing Organization Address [facility]/ZIP Co de Phone Number [facility] [address] [place] [address] * (ABNORMAL) LIPID PROFILE (INCLUDES CHOLESTEROL, TRIGLYCERIDES, HDL, LDL) (11/08/2022 13:52 EDT) [facility] Signature Cholesterol 126 <200 mg/dL 11/08/2022 14:35 EDT [facility] Comment:Note that therapeuti c goals will differ between patients based on cardiac risk factors and current medical therapy. HDL 35(L) >=40 mg/dl 11/08/2022 14:35 EDT [facility] Comment:Note that therapeuti c goals will differ between patients based on cardiac risk factors and current medical therapy. LDL, Calculated 54 <160 mg/dL 14:35 [facility] Comment:Note that therapeuti c goals will differ between patients based on cardiac risk factors and current medical therapy. Triglyceride 187(H) <=150 mg/dL 11/08/2022 14:35 [facility] Comment:Note that therapeuti c goals will differ between patients based on cardiac risk factors and current medical therapy. Chol/HDL Ratio 3.6 See Note 11/08/2022 14:35 [facility] Comment: NOTE: Desirable Ratio = <4.1 Patient At Risk Ratio = >5.0(Males) ?>6.0(Females) Non HDL Cholesterol 91 <160 mg/dL 11/08/2022 14:35 T [facility] Comment:Note that therapeuti c goals will differ between patients based on cardiac risk factors and current medical therapy. Blood VENOUS BLOOD / Unknown Venipuncture / Unknown 11/08/2022 13:52 EDT 11/08/2022 13:52 EDT Oliver White MD CHEMISTRY & BLOOD GA S ORDERABLES [facility] [address] [place] [address] * (ABNORMAL) COMPREHENSIVE METABOLIC PANEL (CMP) (11/08/2022 13:52 EDT) Sodium 140 136 - 145 mmol/L 11/08/2022 14:35 [facility] Potassium 4.1 3.5 - 5.0 mmol/L 11/08/2022 14:35 [facility] Chloride 104 96 - 110 mmol/L 11/08/2022 14:35 [facility] CO2 Total 22 22 - 32 mmol/L 11/08/2022 14:35 [facility] Glucose 139(H) 70 - 99 mg/dl 11/08/2022 14:35 [facility] BUN 26 10 - 26 mg/dL 11/08/2022 14:35 [facility] Creatinine 1.06 0.66 - 1.25 mg/dL 11/08/2022 14:35 [facility] eGFR 84 >60 mL/min/1.7 3m2 11/08/2022 14:35 [facility] Total Protein 7.0 6.3 - 8.2 g/dL 11/08/2022 14:35 [facility] Albumin 4.2 3.4 - 4.9 g/dL 11/08/2022 14:35 [facility] Alkaline Phosphatase 70 38 - 126 U/L 11/08/2022 14:35 [facility] AST 29 15 - 46 U/L 11/08/2022 14:35 [facility] ALT 29 <50 U/L 11/08/2022 14:35 [facility] Bilirubin, Total 0.5 <1.4 mg/dL 11/09/19 14:35 [facility] Calcium 10.2 8.5 - 10.5 mg/dL 11/08/2022 14:35 [facility] Albumin/Globulin Ratio 1.5 1.0 - 2.5 g/dL 11/08/2022 14:35 [facility] Anion Gap 14 5 - 14 mmol/L 11/08/2022 14:35 [facility] Blood VENOUS BLOOD / Unknown Venipuncture / Unknown 11/08/2022 13:52 EDT 11/08/2022 13:52 EDT Oliver White MD CHEMISTRY & BLOOD GA S ORDERABLES [facility] [address] [place] [address] documented in this encounter Visit Diagnoses Diagnosis Pure hypercholesterolemia Hypothyroidism, unspecified type Generalized-onset seizures (HCC-CMS) Other convulsions Special screening for malignant neoplasm of prostate Vitamin D deficiency Unspecified vitamin D deficiency Hypomagnesemia Disorders of magnesium metabolism documented in this encounter Care Teams Sole Layer Relationship Specialty Start Date End Date Suyapa Duarte MD [address] [place] [phone] PCP - General Family Medicine - Primary Care 03/09/21 documented as of this encounter
--- OUTSIDE RECORDS SUMMARY | 2023-10-25 14:40 | XMS_ITS | Encounter Summary ---
Author Organization [facility] Address [address] [place] [address] Care Team Providers Care Supervisor Cell Operation Name Role Phone Suyapa Duarte MD Primary Care Provider [phone] Reason for Referral * Medication Prior Authorization (Routine/Next Available) - Authorization Not Required Specialty Diagnoses / Procedures Referred By Conteusebia t Referred To Contact Physical Medicine and Rehab Diagnoses Spasticity Mauricio Sheffield MD [address] [place] [phone] [facility] [address] [place] [id number] Referral ID Status Reason Start Date Expiration Date Visits Requested Visits Authorized [id number] Authorization Not Required Medication Prior Authorization 01/10/20 23 1 1 Question Answer Medication to be Prior Authorized: Botox A 300 units Comments The purpose of this request is to inform precertification staff that the requested service needs to be reviewed for prior-authorization. Reason for Visit * Reason Comments Follow-up Botox Injection * Medication Prior Authorization (Routine/Next Available) - Authorized Specialty Diagnoses / Procedures Referred By Contac t Referred To Contact Physical Medicine and Rehab Diagnoses 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HCC-CMS) Cora Foster MD [address] [place] [phone] [facility] [address] [place] [address] Referral ID Status Reason Start Date Expiration Date Visits Requested Visits Authorized [id number] Authorized Medication Prior Authorization 04/05/2022 04/05/2023 1 1 Encounter Details Date Type Department Care Team (Late st Contact Info) Description 01/09/2023 13:00 EST Procedure visit [facility] Physical Medicine & Rehabilitation - [facility] [address] [place], [place] [phone] Mauricio Sheffield MD [address] [place] [address] 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HCC-CMS) (Primary Dx); Spasticity Social History Tobacco Use Types Packs/Day Years [...] as of this encounter Progress Notes * Mauricio Sheffield MD - 01/09/2023 1300 EST Physical Medicine [facility] Rehabilitation Clinic Subjective: Patient ID: Janes Gooden is an 52 y.o.. male Chief Complaint Patient presents with ??? Follow-up ??? Botox Injection HPI Janes Gooden is here for follow-up on his spasticity management from his cerebral palsy. He has responded well to Botox injections in his bilateral posterior thighs. He continues to feel benefit from Botox injections to the bilateral hamstrings. He was last seen inAugu2022 for injections. He has had no issues from these. His living situation has remained stable. He is in an apartment where he gets staff support for meals and homemaking activities with someone present with him during the day up until 4 PM. He is fullyindependent from 4 PM to 8 AM. He transfers independently then. He to has a grab bar and his bed set up at a height that allows him to do the transfer. He has what appears to be plantar fascitis or some other cause of left medial heel and plantar foot pain with standing. He has podiatry visit next week. Celebrex helps pain. He has been with parents since this started a few weeks ago. Patient Active Problem List Diagnosis ??? 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HCC-CMS) History reviewed. No pertinent past medical history. Past Surgical History: Procedure Laterality Date ??? HIP SURGERY ??? HIP SURGERY ??? SPINE SURGERY gavin holland Family history: as per EHR Social history: as per EHR Current Outpatient Medications Medication Sig Note Dispense Refill ??? acetaminophen (TYLENOL) 325 mg tablet Take 1 Tablet by mouth as needed. prn 05/10/2016: PRN per patient ??? allopurinol (ZYLOPRIM) 100 mg tablet Take 2 Tablets by mouth daily. 200 mg AM ??? atenolol (TENORMIN) 50 mg tablet Take 2 Tablets by mouth daily. ??? botulinum toxin Type A (BOTOX) 100 unit injection Inject into the muscle. ??? Mqsdnsc-Aqlmcudbp-Pghu 333-133-5 mg Tab Take 2 Tabs by mouth daily. ??? celecoxib (CELEBREX) 100 mg capsule Take 1 Capsule by mouth as needed. ??? diclofenac-misoprostoL (ARTHROTEC 50) 50-200 mg-mcg per tablet Take 1 Tablet by mouth 2 times daily as needed. ??? divalproex (DEPAKOTE) 500 mg delayed release tablet Take 1 Tablet by mouth 2 times daily. ??? ergocalciferol, vitamin D2, (VITAMIN D2 ORAL) Take 50,000 Int'l Units by mouth. Biweekly ??? levothyroxine (SYNTHROID) 112 mcg tablet Take 1 Tablet by mouth daily. ??? lisinopriL (PRINIVIL) 20 mg tablet Take 1 Tablet by mouth daily. ??? Magnesium Oxide 84.5 mg (140 mg) capsule Take by mouth 4 times daily. ??? METFORMIN HCL (METFORMIN ORAL) Take 500 mg by mouth 2 times daily. ??? OMEGA-3 FATTY ACIDS/FISH OIL (OMEGA 3 FISH OIL ORAL) Take by mouth 2 times daily. ??? oxybutynin (DITROPAN XL) 15 mg CR tablet Take 1 Tablet by mouth daily. ??? potassium chloride (KLOR-CON) 20 mEq packet Take 20 mEq by mouth 2 times daily. ??? simvastatin (ZOCOR) 40 mg tablet Take 1 Tablet by mouth every evening. ??? triamterene-hydrochlorothiazide (MAXZIDE) 75-50 mg per tablet Take 1 Tablet by mouth daily. ??? VITAMIN B COMPLEX [...] on file to calculate BMI. Physical Exam Patient is alert and present He has stable spastic tetraplegic cerebral palsy He has enough function in his arms so that he can independently manage his lightweight power wheelchair. Arms are in a flexion pattern at rest. Bilateral lower extremities flexion at the knees and dorsiflexion at the ankles. See the modified Kate scoring in the procedure note. Assessment: Janes Gooden is a 52 y.o. gentleman with spastic tetraplegic cerebral palsy. Botox injections into his posterior thigh muscles since January 2008 have helped to keep those muscles a bit more flexible and allow him to do a bit of a spring balance transfer from standing over onto his transfer surface. He is appropriate for repeat injections. Botox 300 units was injected without complication. Please see separate procedure note. Prior authorization is being requested for 300 units for next planned injection. Patient will be seeing podiatry for his left heel pain. We will discuss this at our next visit to see if it has improved. Plan: Encounter Diagnoses Name Primary? 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HCC-CMS) Yes ??? Spasticity Med Orders Placed This Visit and Additions to the Medication List Medications ??? botulinum toxin Type A (BOTOX) injection 300 Units Other Orders Placed This Visit Procedures ??? Ambulatory Clinic Admin Med Prior Authorization Request ([id number]) Future Appointments Date Time Provider Department Center 04/10/2023 13:00 Mauricio Sheffield MD [facility] None Portions of this document have been prepared with speech recognition software or keyboard data operations leader techniques. Minor irregularities or keyboarding misprints may be present. I spent a total of 10 minutes on the date of this encounter meeting with the patient and reviewing documentation/coordinating care as described in the above note. This was separate from any procedures performed at the time of the visit. MAURICIO SHEFFIELD MD * Mauricio Sheffield MD - 01/09/2023 1300 EST Procedure: Procedures After reviewing history [...] Blue needle ?? 07/28/21 11/03/21 02/02/2022 05/24/22 01/09/23 MAS Left Semimemb 100 100 100 100 100 2 LHBF 50 50 50 50 50 2 SH BF Right Semimem 100 100 100 100 100 2 LH BF 50 50 50 50 50 2 SH BF Total 300 300 300 300 300 Total botox units injected: 300 Total botox units wasted: 0 Plan: Return to clinic for assessment of Botox efficacy and repeat Botox injections in 3 months. Prior authorization is being requested for 300 units for next planned injection. Future Appointments Date Time Provider Department Center 04/10/2023 13:00 Mauricio Sheffield MD [facility] None MAURICIO SHEFFIELD MD documented in this encounter Plan of Treatment Scheduled Referrals Name Type Priority Associated Diagnoses Order Schedule AMB CONS/FOLLOW UP CLINIC ADMIN MED PRIOR AUTHORIZATION REQUEST Outpatient Referral Routine/Next Available Spasticity Expected: 01/16/2023 (Approximate), Expires: 01/10/2024 documented as of this encounter Visit Diagnoses Diagnosis 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HCC-CMS)- Primary Congenital quadriplegia Spasticity Abnormal involuntary movements documented in this encounter Administered Medications Inactive Administered Medications - up to 3 most recent administrations Medication Order MAR Action Action Date Dose Rate Site botulinum toxin Type A (BOTOX) injection 300 Units 300 Units, intramuscular, NOW X1, 1 dose, On Sun01/09/23 at 0000, Routine Given 01/09/2023 13:35 EST 300 Units documented in this encounter Care Teams Supervisor Cell Operation Relationship Specialty Start Date End Date Suyapa Duarte MD [address] [place] [phone] PCP - General Family Medicine - Primary Care 03/09/21 documented as of this encounter
--- OUTSIDE RECORDS SUMMARY | 2023-10-25 14:40 | XMS_ITS | Referral Summary ---
Author Organization [facility] Address [address] [place] [address] Care Team Providers Care Template Storage Clerk Name Role Phone Suyapa Duarte MD Primary Care Provider [phone] Encounters Date Type Department Care Team Description 10/23/2023 15:15 EDT Procedure visit [facility] Physical Medicine & Rehabilitation - [address] [place], [place] [phone] Mauricio Antonio MD Spasticity (Primary Dx) from Last 3 Months Allergies Active Allergy Reactions Criticality Noted Date [...] by mouth 2 times daily. 07/14/2010 Active Leribtf-Vbyhxtrcm-Bcz c 333-133-5 mg Tab Take 2 Tabs [...] the original. Call father's (Tyler) cellphone at [phone] for all appointment scheduling/questions; Father's address is [address] [place] [address] Patient has given permission for [facility] to verbally discuss the following information with Desiree Gooden who has the following relationship to the patient: Mother: Scheduling/Appt/Billing/Payment Information (does not include clinical information unless specifically indicated with separate option) Permission remains in effect until the patient elects to revoke it. 2021-Verified NON-ACO [place] Medicaid TCN:[id number] Bronson Baires 04/19/2021 16:31 Problem Noted Date Diagnosed Date 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HCC-CMS) Social History Tobacco Use Types Packs/Day Years Used Date Smoking Tobacco: Never Smokeless Tobacco: Never Interpersonal Safety Answer Date Record ed Physically Hurt Never 10/07/2019 Verbally Threaten Not on file 10/07/2019 Sex and Gender Information Value Date Recorded Sex Assigned at Not on file Gender Identity Male 06/12/2019 8:16 EDT Sexual Orientation Not on file Last Filed Vital Signs Vital Sign Reading Time Taken Comments Blood Pressure 122/85 03/09/2021 0346 EST Pulse 78 03/09/2021 0114 EST Temperature 35.9 ??C (96.6 ??F) 03/09/2021 0114 EST Respiratory Rate 18 03/09/2021 0114 EST Oxygen Saturation 94% 03/09/2021 0346 EST Inhaled Oxygen Concentration - - Weight 68.9 kg (152 lb) 05/10/2016 1553 EST Height - - Body Mass Index - - Functional Status Functional Status Response Date of [...] concentrating, remembering, or making decisions? No 02/10/2016 Plan of Treatment Not on file Procedures Procedure Name Priority Date/Time Associated Diagnosis [...] C Antibody Negative Negative 07/20/2021 13:08 EDT [facility] Blood VENOUS BLOOD / Unknown 07/20/2021 10:00 EDT 07/20/2021 10:44 EDT Suyapa Duarte MD CHEMISTRY & BLOOD GA S ORDERABLES [facility] [address] [place] [address] from Last 3 Months or Most Recently Relevant to Health Maintenance Care Teams Template Storage Clerk Relationship Specialty Start Date End Date Suyapa Duarte MD [address] [place] [phone] PCP - General Family Medicine - Primary Care 03/09/21
--- OUTSIDE RECORDS SUMMARY | 2023-10-25 14:40 | XMS_ITS | Encounter Summary ---
Author Organization [facility] Address [address] [place] [address] Care Team Providers Care Maintainability Engineer Name Role Phone Suyapa Duarte MD Primary Care Provider [phone] Reason for Visit * Reason Onset Date Comments Appointment Related 03/20/2023 Encounter Details Date Type Department Care Team (Late st Contact Info) Description 03/20/2023 Telephone [facility] Physical Medicine & Rehabilitation - [address] [address] Mauricio Antonio MD [address] [place] [phone] Appointment Related Social History Tobacco Use Types [...] encounter Miscellaneous Notes * Telephone Encounter - Amirah Soriano - 03/20/2023 1133 EST Reason for Call: Appointment Related Summary: [facility] will be in [place] [facility] wanted to see if he can come in that same day since [facility]. Please call David at [phone] Appointment Offered? No Amirah Soriano 03/20/2023 11:33 documented in this encounter Plan of Treatment Not on file documented as of this encounter Visit Diagnoses Not on filedocumented in this encounter Care Teams Maintainability Engineer Relationship Specialty Start Date End Date Suyapa Duarte MD [address] [place] [phone] PCP - General Family Medicine - Primary Care 03/09/21 documented as of this encounter
--- OUTSIDE RECORDS SUMMARY | 2023-10-25 14:40 | XMS_ITS | Encounter Summary ---
Author Organization [facility] Address [address] [place] [address] Care Team Providers Care Clerk Television Production Name Role Phone Suyapa Duarte MD Primary Care Provider [phone] Encounter Details Date Type Department Care Team (Latest Contact Info) Description 11/10/2022 [facility] [address] [place] [address] Oliver White MD [address] [place] [phone] Hypomagnesemia (Primary Dx); Vitamin D deficiency; Special screening for malignant neoplasm of prostate Social History Tobacco Use Types Packs/Day Years [...] documented as of this encounter Results * PSA SCREEN (11/08/2022 13:52 EDT) PSA 2.420 <=3.500 ng/mL 11/13/2022 19:58 EDT [facility] Blood VENOUS BLOOD / Unknown Venipuncture / Unknown 11/08/2022 13:52 EDT 11/08/2022 13:52 EDT Narrative [facility] - 11/13/2022 19:58 EDT NOTE: Serum PSA concentration should not be interpreted as absolute evidence for the presence or absence of malignant disease. Assayed on [employer] using chemiluminescent technology.??Values obtained by using different assay methods cannot be used interchangeably. ?? Oliver White MD CHEMISTRY & BLOOD GA S ORDERABLES Performing Organization Address [facility] Co de Phone Number [facility] [address] [place] [address] * VITAMIN D (25,OH) (11/08/2022 13:52 EDT) 25OH Vitamin D Tot 51 30 - 100 ng/mL 11/13/2022 19:44 EDT [facility] Blood VENOUS BLOOD / Unknown Venipuncture / Unknown 11/08/2022 13:52 EDT 11/08/2022 13:52 EDT Oliver White MD CHEMISTRY & BLOOD GA S ORDERABLES [facility] [address] [place] [address] * MAGNESIUM (11/08/2022 13:52 EDT) Magnesium 2.1 1.7 - 2.8 mg/dL 11/10/2022 15:30 EDT [facility] Blood VENOUS BLOOD / Unknown Venipuncture / Unknown 11/08/2022 13:52 EDT 11/08/2022 13:52 EDT Oliver White MD CHEMISTRY & BLOOD GA S ORDERABLES [facility] [address] [place] [address] documented in this encounter Visit Diagnoses Diagnosis Hypomagnesemia- Primary Disorders of magnesium metabolism Vitamin D deficiency Unspecified vitamin D deficiency Special screening for malignant neoplasm of prostate documented in this encounter Care Teams Clerk Television Production Relationship Specialty Start Date End Date Suyapa Duarte MD [address] [place] [phone] PCP - General Family Medicine - Primary Care 03/09/21 documented as of this encounter
--- OUTSIDE RECORDS SUMMARY | 2023-10-25 14:40 | XMS_ITS | Encounter Summary ---
Author Organization [facility] Address [address] [place] [address] Care Team Providers Care Guest Relations Representative Name Role Phone Suyapa Duarte MD Primary Care Provider [phone] Reason for Visit * Reason Onset Date Comments Appointment Related 10/11/2021 Encounter Details Date Type Department Care Team (Late st Contact Info) Description 10/11/[address] [facility] Physical Medicine & Rehabilitation [place] [address] Cora Foster MD [address] [place] [phone] Appointment Related Social History Tobacco Use [...] encounter Miscellaneous Notes * Telephone Encounter - Yanick Ortiz MA - 10/11/2021 1025 EDT ~ Left VM relaying that next Botox treatment appt has been rescheduled to 11/03/21 at 1300. Requestedconfirmation callback. documented in this encounter Plan of Treatment Not on file documented as of this encounter Visit Diagnoses Not on filedocumented in this encounter Care Teams Guest Relations Representative Relationship Specialty Start Date End Date Suyapa Duarte MD [address] [place] [phone] PCP - General Family Medicine - Primary Care 03/09/21 documented as of this encounter
--- OUTSIDE RECORDS SUMMARY | 2023-10-25 14:40 | XMS_ITS | Encounter Summary ---
Author Organization [facility] Address [address] [place] [address] Care Team Providers Care Rod Puller Name Role Phone Suyapa Duarte MD Primary Care Provider [phone] Reason for Visit * Reason Onset Date Comments Appointment Related 04/26/2022 Encounter Details Date Type Department Care Team (Late st Contact Info) Description 04/26/2022 Telephone [facility] Physical Medicine & Rehabilitation [place] [address] [address] [place] [address] Cora Foster MD [address] [place] [phone] Appointment Related Social History Tobacco Use [...] Telephone Encounter - Yanick Ortiz MA - 04/26/2022 1013 EST Pt rescheduled to 05/16/22. * Telephone Encounter - Mirna George - 04/26/2022 0809 EST Reason for Call: No chief complaint on file. Summary: Would like to r/s botox if not booking out to far apt is tomorrow Appointment Offered? No Mirna George 04/26/2022 8:09 documented in this encounter Plan of Treatment Not on file documented as of this encounter Visit Diagnoses Not on filedocumented in this encounter Care Teams Rod Puller Relationship Specialty Start Date End Date Suyapa Duarte MD [address] [place] [phone] PCP - General Family Medicine - Primary Care 03/09/21 documented as of this encounter
--- OUTSIDE RECORDS SUMMARY | 2023-10-25 14:40 | XMS_ITS | Encounter Summary ---
Author Organization [facility] Address [address] [place] [address] Care Team Providers Care Lining Finisher Name Role Phone Suyapa Duarte MD Primary Care Provider [phone] Reason for Referral * Medication Prior Authorization (Routine/Next Available) - Authorized Specialty Diagnoses / Procedures Referred By Rubina perkins Referred To Contact Diagnoses Mauricio Tai MD [address] [place] [phone] [facility] Phys Med Rehab [address] [place] [address] Referral ID Status Reason Start Date Expiration Date Visits Requested Visits Authorized [id number] Authorized Medication Prior Authorization 4 1 1 Question Answer Medication to be Prior Authorized: Botox A 300 units Comments The purpose of this request is to inform precertification staff that the requested service needs to be reviewed for prior-authorization. Reason for Visit * Reason Comments Follow-up * Medication Prior Authorization (Routine/Next Available) - Authorized Specialty Diagnoses / Procedures Referred By Rubina perkins Referred To Contact Diagnoses Mauricio Tai MD [address] [place] [phone] [facility] Rehab [address] [place] [address] Referral ID Status Reason Start Date Expiration Date Visits Requested Visits Authorized [id number] Authorized Medication Prior Authorization 04/10/2023 1 1 Encounter Details Date Type Department Care Team (Late st Contact Info) Description 07/17/2023 13:00 EDT Procedure visit [facility] Physical Medicine & Rehabilitation - [address] [place] [address] Mauricio Antonio MD [address] [place] [phone] Spasticity (Primary Dx); 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HCC-CMS) Social History [...] of this encounter Progress Notes * Mauricio Antonio MD - 07/17/2023 1300 EDT Procedure: Procedures After reviewing history and [...] 07/28/21 11/03/21 02/02/2022 05/24/22 01/09/23 04/10/23 07/17/23 Left 4 Semimemb 100 100 100 100 [...] for 300 units for next planned injection. No future appointments. Mauricio Antonio MD documented in this encounter Plan of Treatment Scheduled Referrals Name Type Priority Associated Diagnoses Order Schedule AMB CONS/FOLLOW UP CLINIC ADMIN MED PRIOR AUTHORIZATION REQUEST Outpatient Referral Routine/Next Available Spasticity Expected: 07/24/2023 (Approximate), Expires: 07/16/2024 documented as of this encounter Visit Diagnoses Diagnosis Spasticity- Primary Abnormal involuntary movements 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HCC-CMS) Congenital quadriplegia documented in this encounter Administered Medications Inactive Administered Medications - up to 3 most recent administrations Medication Order MAR Action Action Date Dose Rate Site botulinum toxin Type A (BOTOX) injection 300 Units 300 Units, intramuscular, NOW X1, 1 dose, On Sun07/17/23 at 0000, Routine Given 07/17/2023 13:29 EDT 300 Units documented in this encounter Care Teams Lining Finisher Relationship Specialty Start Date End Date Suyapa Duarte MD [address] [place] [phone] PCP - General Family Medicine - Primary Care 03/09/21 documented as of this encounter
--- OUTSIDE RECORDS SUMMARY | 2023-10-25 14:40 | XMS_ITS | Encounter Summary ---
Author Organization [facility] Address [address] [place] [address] Care Team Providers Care Manager Of Compensation Name Role Phone Suyapa Duarte MD Primary Care Provider [phone] Reason for Referral * Medication Prior Authorization (Routine/Next Available) - Authorized Specialty Diagnoses / Procedures Referred By Rubina perkins Referred To Contact Diagnoses Spasticity Mauricio Sheffield MD [address] [place] [phone] [facility] Phys Med Rehab [address] [place] [phone] Referral ID Status Reason Start Date Expiration Date Visits Requested Visits Authorized [id number] Authorized Medication Prior Authorization 04/10/2023 1 1 Question Answer Medication to be [...] and Rehab Diagnoses Spasticity Mauricio Sheffield MD [address] [place] [phone] [facility] Med Rehab [address] [place] [address] Referral ID Status Reason Start Date Expiration Date Visits Requested Visits Authorized [id number] Authorization Not Required Medication Prior Authorization 01/10/20 23 1 1 Encounter Details Date Type Department Care Team (Late st Contact Info) Description 04/10/2023 13:00 EST Procedure visit [facility] Physical Medicine & Rehabilitation - [address] [place] [address] Mauricio Sheffield MD [address] [place] [phone] Spasticity (Primary Dx); Spastic quadriplegic cerebral [...] Progress Notes * Mauricio Sheffield MD - 04/10/2023 1300 EST Procedure: Procedures After reviewing history [...] MAS 07/28/21 11/03/21 02/02/2022 05/24/22 01/09/23 04/10/23 Left 2 Semimemb 100 100 100 100 100 100 2 LHBF 50 50 50 50 50 50 SH BF Right 2 Semimem 100 100 100 100 100 100 2 LH BF 50 50 50 50 50 50 SH BF Total 300 300 300 300 300 300 Total botox units injected: 300 Total botox units wasted: 0 Plan: Return to clinic for assessment of Botox efficacy and repeat Botox injections in 3 months. Prior authorization is being requested for 300 units for next planned injection. Future Appointments Date Time Provider Department Center 07/10/2023 13:30 Mauricio Sheffield MD [facility] None MAURICIO SHEFFIELD MD * Mauricio Sheffield MD - 04/10/2023 1300 EST Physical Medicine and Rehabilitation Clinic Subjective: Patient ID: Janes Gooden is an 52 y.o.. male Chief Complaint Patient presents with Follow-up Botox Injection HPI Janes Gooden is here for follow-up on his spasticity management from his cerebral palsy. He has responded well to Botox injections in his bilateral posterior thighs. He continues to feel benefit from Botox injections to the bilateral hamstrings. He was last seen inAugust 2022 for injections. He has had no issues from these. Living situation is still stable. He is in an apartment where he gets staff support for meals and homemaking activities with someone present until 4 PM. He is independent from 4 PM until 8 AM. Transfers independently then. He has to use grab bar in his bed set up at night and allows him to do the transfer. Last visit had some plantar fasciitis symptoms at his heel. Seems to be improved today. He is back in her apartment without issues right now. Patient is appropriate for repeat Botox injections. 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 No pertinent past medical history. Past Surgical History: Procedure Laterality Date HIP SURGERY HIP SURGERY SPINE SURGERY gavin holland Family history: as per EHR Social history: as per EHR Current Outpatient Medications Medication Sig Note Dispense Refill acetaminophen (TYLENOL) 325 mg tablet Take 1 Tablet by mouth as needed. prn 05/10/2016: PRN per patient allopurinol (ZYLOPRIM) 100 mg tablet Take 2 Tablets by mouth daily. 200 mg AM atenolol (TENORMIN) 50 mg tablet Take 2 Tablets by mouth daily. botulinum toxin Type A (BOTOX) 100 unit injection Inject into the muscle. Pkvwrzd-Fiugmqhvc-Ctzi 333-133-5 mg Tab Take 2 Tabs by mouth daily. celecoxib (CELEBREX) 100 mg capsule Take 1 Capsule by mouth as needed. diclofenac-misoprostoL (ARTHROTEC 50) 50-200 mg-mcg per tablet Take 1 Tablet by mouth 2 times dailyas needed. divalproex (DEPAKOTE) 500 mg delayed release [...] 500 mg by mouth 2 times daily. OMEGA-3 FATTY ACIDS/FISH OIL (OMEGA 3 FISH OIL ORAL) Take by mouth 2 times daily. oxybutynin (DITROPAN XL) 15 mg CR tablet Take 1 Tablet by mouth daily. potassium chloride (KLOR-CON) 20 mEq packet Take 20 mEq by mouth 2 times daily. simvastatin (ZOCOR) 40 mg tablet Take 1 Tablet by mouth every evening. triamterene-hydrochlorothiazide (MAXZIDE) 75-50 mg per tablet Take 1 Tablet by mouth daily. VITAMIN B COMPLEX (B-50 COMPLEX ORAL) Take by mouth daily. No current facility-administered medications for this visit. Allergies Allergen Reactions Antifungal [Undecylenic Ac-Zinc Undecylena] All oral antifungals Asa [Aspirin] Chocolate Flavor Ibuprofen Lactose Intolerance (Lactase) Naproxen Other - See Comments tuna Salicylates Tomato Diarrhea Sulfa (Sulfonamide Antibiotics) Swelling Swelling of lower lip ROS - See HPI Objective: No data found. There is no height or weight on file to calculate BMI. Physical Exam Patient is alert and pleasant. Stable spastic diplegic CP. He has a nonfunctional currently can independently manage his lightweight power wheelchair. Arms are in a flexion pattern at rest. Bilateral lower extremities flexion the knees and dorsiflexion at the ankles. See the modified Kate scoring procedure note. Assessment: Janes Gooden is a [...] planned injection. Plan: Encounter Diagnoses Name Primary? Spasticity Yes 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[facility]) Med Orders Placed This Visit and Additions to the Medication List Medications botulinum toxin Type A (BOTOX) injection 300 Units Other Orders Placed This Visit Procedures Ambulatory Clinic Admin Med Prior Authorization Request ([id number]) Future Appointments Date Time Provider Department Center 07/10/2023 13:30 Mauricio Sheffield MD [facility] None Portions of this document have been prepared with speech recognition software or keyboard medical data entry clerk techniques. Minor irregularities or keyboarding misprints may be present. I spent a total of 20 minutes on the date of this encounter meeting with the patient and reviewing documentation/coordinating care as described in the above note. This was separate from any procedures performed at the time of the visit. MAURICIO SHEFFIELD MD documented in this encounter Plan of Treatment Scheduled Referrals Name Type Priority Associated Diagnoses Order Schedule AMB CONS/FOLLOW UP CLINIC ADMIN MED PRIOR AUTHORIZATION REQUEST Outpatient Referral Routine/Next Available Spasticity Expected: 04/17/2023 (Approximate), Expires: 04/10/2024 documented as of this encounter Visit Diagnoses Diagnosis Spasticity- Primary Abnormal involuntary movements 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HCC-CMS) Congenital quadriplegia documented in this encounter Administered Medications Inactive Administered Medications - up to 3 most recent administrations Medication Order MAR Action Action Date Dose Rate Site botulinum toxin Type A (BOTOX) injection 300 Units 300 Units, intramuscular, NOW X1, 1 dose, On Sun04/10/23 at 0000, Routine Given 04/10/2023 13:36 EST 300 Units documented in this encounter Care Teams Manager Of Compensation Relationship Specialty Start Date End Date Suyapa Duarte MD [address] [place] [phone] PCP - General Family Medicine - Primary Care 03/09/21 documented as of this encounter
--- OUTSIDE RECORDS SUMMARY | 2023-10-25 14:40 | XMS_ITS | Encounter Summary ---
Author Organization [facility] Address [address] [place] [address] Care Team Providers Care Policy Checker Name Role Phone Suyapa Duarte MD Primary Care Provider [phone] Encounter Details Date Type Department Care Team (Latest Contact Info) Description 04/29/2021 Plan of Care Documentation [facility] Rehabilitation Therapy [address] [phone] Social History Tobacco Use Types Packs/Day Years [...] as of this encounter Progress Notes * Neela Carmona, PT - 04/29/2021 1241 EST Outpatient Rehab Plan of Care Assessment Patient is a 50 year old male who presents to physical therapy with impaired mobility, hamstring tightness which is from diagnosis of CP. Patient reports independence with transfers in his home, as he has a good reported set up of may grab bars, but previously he was having difficulty when he had ashoulder injury. This is resulting in increased assist required from caregivers. Patient and his mother was provided education on alternative transfer devices, such as the Etac and Shefali Steady, and they are encouraged to further explore these options in the future if transfers become more difficult. At this time, his current plan for transfers appears adequate and safe. Patient has long standing history of spasticity and treatment, including Botox most recently done on his hamstrings. A standing frame is tried today in hopes of promoting stretching of his hamstrings, which is important to maintain in order to perform all transfers and bed mobility without reliance on caregivers. Patient will require assist with standing frame, but feel this would be a good tool for stretching hamstrings, p roviding weight bearing through lower extremity joints. Skilled physical therapy is medically necessary to trial these devices in order to determine what is appropriate for patient. Will plan to reach out to referring provider to request prescription for standing frame to be sent to preferred vendor. At this time, patient appears to be at his baseline level of functioning and has no other skilledneed. Would be happy to re-evaluate patient in the future should he require skilled PT. Short-Term Goals: Long-Term Goals: Time Frame: 1 visit Goal: Patient and mother will express understanding of how to use Standing frame and indications ofstanding frame. Status: Met Goal: Patient and mother will express understanding of alternative transfer devices that exist for improving ease of transfers. Status: Met Plan No skilled physical therapy needed, Discontinue physical therapy services Neela Carmona, SHADY 04/29/2021 12:40 ATTENDING PHYSICIAN: Medicare certification needed. Your signature indicates you approve the therapy goals and plan of care outlined on this document dated 04/28/2021. Thank you! Attending Physician Signature Date Neela Carmona PT 04/29/2021 12:41 documented in this encounter Plan of Treatment Not on file documented as of this encounter Visit Diagnoses Not on filedocumented in this encounter Care Teams Policy Checker Relationship Specialty Start Date End Date Suyapa Duarte MD [address] [place] [phone] PCP - General Family Medicine - Primary Care 03/09/21 documented as of this encounter
--- OUTSIDE RECORDS SUMMARY | 2023-10-25 14:40 | XMS_ITS | Encounter Summary ---
Author Organization [facility] Address [address] [place] [address] Care Team Providers Care Sales Contractor Name Role Phone Suyapa Duarte MD Primary Care Provider [phone] Encounter Details Date Type Department Care Team (Late st Contact Info) Description 07/30/2021 Orders Only [facility] Physical Medicine & Rehabilitation [place] [address] [address] [place] [address] Cora Foster MD [address] [place] [phone] 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HCC-CMS) ([facility]) (Primary Dx) Social History Tobacco Use Types [...] Progress Notes * Cora Foster MD - 07/30/2021 1327 EDT Janes was evaluated 04/28/2021 to look for transfers and mobility issues. He was also assessed for a standing frame. Patient and family agreed that was a device he would want to work with to improve lower extremity range and endurance and tolerance. The device at hand was not an appropriate size for his body height and weight. It did however indicate that he would have a tolerance to being up in a standing frame. That initial eval however was not coordinated with a vendor which is necessary to identify specifics and sizing of the device. That was just brought to our attention after Janes's recent appointment for Botox injections with me that he had not received a standing frame. In following up with the PT who evaluated him they clarified that he would need to be rescheduled for formal vendor and PT coordinated appointment orderedas a Wheelchair Clinic evaluation for the purposes of assessing a standing frame. Placing an order today to get him in for an coordinated PT/vendor appointment specifically for identification of appropriate standing frame device. Cora Foster MD Orders Placed This Encounter Procedures ??? Amb Consult/Follow Up Wheelchair Clinic Janes has been tested in a standing frame during skilled PT and shown it to be tolerated. However devices available at that time did not fit him appropriately and a repeat full evaluation needs to occur coordinated with the vendor in order to optimize the specifics of the device size and mechanics. Standing Status: Future Standing Expiration Date: 07/30/2022 Referral Priority: See Order Priority Referral Type: PT/OT/ST Referral Reason: Specialty Services Required Number of Visits Requested: 1 documented in this encounter Plan of Treatment Not on file documented as of this encounter Visit Diagnoses Diagnosis 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HCC-CMS)- Primary Congenital quadriplegia documented in this encounter Care Teams Sales Contractor Relationship Specialty Start Date End Date Suyapa Duarte MD [address] [place] [phone] PCP - General Family Medicine - Primary Care 03/09/21 documented as of this encounter
--- OUTSIDE RECORDS SUMMARY | 2023-10-25 14:40 | XMS_ITS | Encounter Summary ---
Author Organization [facility] Address [address] [place] [address] Care Team Providers Care Beer Coil Cleaner Name Role Phone Suyapa Duarte MD Primary Care Provider [phone] Reason for Referral * Medication Prior Authorization (See Order Priority) - Authorization Not Required Specialty Diagnoses / Procedures Referred By Rubina perkins Referred To Contact Physical Medicine and Rehab Diagnoses Spasticity Cora Foster MD [address] [place] [phone] [facility] Phys [place] [address] [place] [address] Referral ID Status Reason Start Date Expiration Date Visits Requested Visits Authorized [id number] Authorization Not Required Medication Prior Authorization 2 1 1 Question Answer Medication to be Prior Authorized: Botox A 300 units Comments The purpose of this request is to inform precertification staff that the requested service needs to be reviewed for prior-authorization. Reason for Visit * Reason Comments Follow-up Botox Injection * Medication Prior Authorization (See Order Priority) - Order Cancelled Specialty Diagnoses / Procedures Referred By Rubina perkins Referred To Contact Physical Medicine and Rehab Diagnoses 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HCC-CMS) Cora Foster MD [address] [place] [phone] [facility] Phys Med Rehab [address] [place] [address] Referral ID Status Reason Start Date Expiration Date Visits Requested Visits Authorized [id number] Order Cancelled Medication Prior Authorization 2 1 1 Encounter Details Date Type Department Care Team (Latest Contact Info) Description 11/03/2021 13:00 EDT Procedure visit [facility] Physical Medicine & [place] [address] Cora Foster MD [address] [place] [phone] 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HCC-CMS) ([facility]) (Primary Dx); Spasticity Social History Tobacco Use [...] Progress Notes * Cora Foster MD - 11/03/2021 1300 EDT Physical Medicine and Rehabilitation Clinic Subjective: Patient ID: Janes Gooden is an 51 y.o.. male Chief Complaint Patient presents with ??? Follow-up ??? Botox Injection HPI Janes Gooden returns for review of his lower extremity spasticity from cerebral palsy last treated 07/28/2021 with Botox. Comes here today accompanied by one of his usual primary daily care providers,Ruiz, and also his egg caser, Ankit. Ankit is here to provide physical assist for his transfer over to the exam table. Ruiz is his primary care provider 33 hours/week. Ruiz provides assist with some transfers during theweek but in the setting of our exam room Janes requires more physical assist thus the need for Ankit. Janes and his team indicate he got good results from the last Botox. Primarily Botox keeps him just a bit looser so he can generate more of a bounce in his transfers to help get over to another surface. He has not had any recurrence of his shoulder pain. Janes has experienced a sense of tightness increasing in the last 7 days. He recently completed his evaluation for a standing frame device with [facility]. had a lengthy discussion about how the eval went and challenges to instituting this in Janes's home and prosand cons of use. There are some challenges for them having the support to access a standing frame on a regular basis that they are looking up and working on. May require regular involvement of additional support through home health services that would have to be explored. That might limited to a weekly intervention. Final decision has not been made yet by Janes and his parents (his guardians) about acquiring the device. Ankit also refers to lower extremity swelling he has had long-term that might increase with standing. Also knowing that he would carefully want to watch his amount of fatigue that would come out of that activity. If he gets more fatigued he loses more independence and his transfer capabilities. Patient Active Problem List Diagnosis ??? 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 100 mg AM, 200 at 1999 ??? atenolol (TENORMIN) 50 mg tablet Take 100 mg by mouth daily. ??? botulinum toxin Type A (BOTOX) 100 unit injection Inject into the muscle. ??? Rlvydma-Khidqpiti-Toqa 333-133-5 mg Tab Take 2 Tabs by mouth daily. ??? celecoxib (CELEBREX) 100 mg capsule Take 100 mg by mouth as needed. ??? diclofenac-misoprostoL (ARTHROTEC 50) 50-200 mg-mcg per tablet Take 1 Tab by mouth 2 times daily as needed. ??? divalproex (DEPAKOTE) 500 mg EC tablet Take 500 mg by mouth 2 times daily. ??? ergocalciferol, vitamin D2, (VITAMIN D2 ORAL) Take 50,000 Int'l Units by mouth. Biweekly ??? levothyroxine (SYNTHROID) 112 mcg tablet Take 100 mcg by mouth daily. ??? lisinopriL (PRINIVIL) [...] calculate BMI. Physical Exam Alert and fully cooperative with exam Speech intact with stable baseline dysarthria. Spastic quadriplegia. Continues with hip and knee flexion contractures Spastic resistance to active range. Positioned on stomach, hip flexor tone increases his amount of lumbar lordosis. Knee range in this position with the knees at about -50 degrees from neutral in a flexed position MAS scores: Hamstrings 4 at maximum endrange Assessment: Janes Gooden is now a 51-year-old gentleman with spastic quadriplegic CP. He has been receiving responding well to Botox injections in his posterior thigh muscles since January 2008. Discussion regarding standing frames, transfers, optimizing independence. Review of factors that can impact overall endurance through the day, edema. Discussion of care support schedule. Discussion of ways to work on stretching of his hamstrings and lower extremities that can be done not in the standing frame and that Ruiz potentially could provide without compromising his upper body safety. Botox 300 units was injected without complication. Please see separate procedure note. Prior authorization is being requested for 300 units for next planned injection. Plan: Encounter Diagnoses Name Primary? 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HCC-CMS) (HCC) Yes ??? Spasticity Med Orders Placed This Visit and Additions to the Medication List Medications ??? botulinum toxin Type A (BOTOX) injection 300 Units Other Orders Placed This Visit Procedures ??? Ambulatory Clinic Admin Med Prior Authorization Request ([id number]) Future Appointments Date Time Provider Department Center 02/02/2022 13:00 Cora Foster MD [facility] None Portions of this document have been prepared with speech recognition software or keyboard data collection interviewer techniques. Minor irregularities or keyboarding misprints may be present. I spent a total of 30 minutes on the date of this encounter meeting with the patient and reviewing documentation/coordinating care as described in the above note. This was separate from any procedures performed at the time of the visit. documented in this encounter Procedure Notes * Cora Foster MD - 11/03/2021 1300 EDT Procedure: Procedures After reviewing history [...] Prone on exam table. Blue needle ?? 10/29/19 02/03/20 04/29/20 ??07/29/2020 01/21/21 04/15/21 07/28/21 11/03/21 Left ? Semimemb ??75 ??75 ??75 75 75 100 100 100 LHBF ??75 ??50 ??50 ??75 75 50 50 50 SH BF ?25 ??25 ?? Right ? Semimem ??75 ??75 ??75 ??75 75 100 100 100 LH BF ??75 ??50 ??50 ??75 75 50 50 50 SH BF ?25 ??25 ?? Total ??300 ??300 ??300 ??300 300 300 300 300 Total botox units injected: 300 Total botox units wasted: 0 Plan: Return to clinic for assessment of Botox efficacy and repeat Botox injections in 3 months. Botox 300 units was injected without complication. Prior authorization is being requested for 300 units for next planned injection. Future Appointments Date Time Provider Department Center 02/02/2022 13:00 [facility] documented in this encounter Plan of Treatment Scheduled Referrals Name Type Priority Associated Diagnoses Order Schedule AMB CONS/FOLLOW UP CLINIC ADMIN MED PRIOR AUTHORIZATION REQUEST Outpatient Referral Routine/Next Available Spasticity Expected: 11/10/2021 (Approximate), Expires: 11/03/2022 documented as of this encounter Visit Diagnoses Diagnosis 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HCC-CMS)- Primary Congenital quadriplegia Spasticity Abnormal involuntary movements documented in this encounter Administered Medications Inactive Administered Medications - up to 3 most recent administrations Medication Order MAR Action Action Date Dose Rate Site botulinum toxin Type A (BOTOX) injection 300 Units 300 Units, intramuscular, NOW X1, 1 dose, On Marie 11/03/21 at 0000, Routine Given 11/03/2021 13:31 EDT 300 Units documented in this encounter Care Teams Beer Coil Cleaner Relationship Specialty Start Date End Date Suyapa Duarte MD [address] [place] [phone] PCP - General Family Medicine - Primary Care 03/09/21 documented as of this encounter
--- OUTSIDE RECORDS SUMMARY | 2023-10-25 14:40 | XMS_ITS | Encounter Summary ---
Author Organization [facility] Address [address] [place] [address] Care Team Providers Care Crusher Operator Name Role Phone Suyapa Duarte MD Primary Care Provider [phone] Reason for Visit * Reason Onset Date Comments Appointment Related 08/23/2021 Encounter Details Date Type Department Care Team (Late st Contact Info) Description 08/23/2021 Telephone [facility] Rehabilitation Therapy [address] [phone] Therapy, Physical Appointment Related Social History Tobacco Use Types [...] encounter Miscellaneous Notes * Telephone Encounter - Hodan Parker MA - 08/23/2021 0951 EDT Images from the original note were not included. [facility] - [place] [id number] [facility] [address] Person providing information? Bambi Ramírez Guardian: Parents Phone number: cell-parents [phone] 1. Who recommended that you be seen in wheelchair clinic? Dr. Kristin arora. Script/referral: In EPIC b. Referral date: 07/30/21 2. What is your diagnosis (reason for needing a wheelchair)? Spastic quadriplegic CP 3. Have you seen your referring physician within the past 6 months for the diagnosis (reason you need a wheelchair)? Yes 4. Reason for appointment? Other: Stander 10. Is there a ramp to get into your home? Yes 11. Do you have any skin breakdown on your buttocks caused by seating/cushion? no 13. How do you transfer? Pop over 14. Do you need assistance for your transfers? Yes 15. Will anyone be with you at time of appointment? Yes 16. Approximate Height? 4' 10 17. Approximate Weight? Approx: 150 lbs 18. Name of Medical Vendor? [employer] 19. Insurance Information: a. Primary Insurance: [employer] Medicare/[facility] AARP-no need to send to [place] b. Secondary Insurance: [place] Medicaid standard plan- REFERRAL REQUIRED. Extension process must be followed for additional visits age 21 up (30 visits/rudy year combined); age 0-21 (8 visits/rudy year perdiscipline) If [facility] Medicare: Have you been seen in therapy since March first of this year? No Are you receiving any home health or VNA services? Yes; By which agency? [facility] - CONTACT HOME HEALTH AGENCY FOR APPROVAL 20. Do you require SSTA for transportation? No NOTES: Janes lives indepently at: [facility], address: [address] [place] [address], [address], [place], [place]. Mom and Dad take care of his scheduling needs. Date of appointment 10/26/21 Location RTC Type of appointment STANDER Therapist Start Time LINSEY @ 1:00 Supplier Start Time GEO @1:00 Length of Appointment 90 MINUTES Additional Notes - Hodan Parker MA 08/23/2021 10:00 Md Hodan, He has [facility] Complete Choice Plus for insurance not traditional Medicare. I have never authorized [facility]. Rosa Elena Penny, PT Manager Games [facility] [address] [place] [address] [email or web address] TDD: [phone] From: Hodan Parker <[email or web address]> Sent: Sunday, October 24, 2021 2:48 PM To: Rosa Elena Penny PT <[email or web address] Cc: Elliott Duncan <[email or web address]> Subject: SECURE#APPROVAL REQUEST You don't often get email from [email or web address]. Learn why this is important CAUTION: This email originated from outside of [facility]. Do not click links or open attachments unlessyou recognize the sender and know the content is safe. Angela, We would like to get approval to see patient Janes Gooden, 70 for a stander evaluation with the wheelchair clinic on 10/26/2021. Thank you. Hodan Parker MA 10/25/2021 10:32 documented in this encounter Plan of Treatment Not on file documented as of this encounter Visit Diagnoses Not on filedocumented in this encounter Care Teams Crusher Operator Relationship Specialty Start Date End Date Suyapa Duarte MD [address] [place] [phone] PCP - General Family Medicine - Primary Care 03/09/21 documented as of this encounter
--- OUTSIDE RECORDS SUMMARY | 2023-10-25 14:40 | XMS_ITS | Encounter Summary ---
Author Organization [facility] Address [address] [place] [address] Care Team Providers Care Economic Analyst Name Role Phone Suyapa Duarte MD Primary Care Provider [phone] Reason for Visit * Reason Comments Follow-up Botox Injection * Medication Prior Authorization (See Order Priority) - Order Cancelled Specialty Diagnoses / Procedures Referred By Rubina perkins Referred To Contact Physical Medicine and Rehab Diagnoses 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HCC-CMS) Cora Foster MD [address] [place] [phone] [facility] Phys Med [place] [address] [place] [address] Referral ID Status Reason Start Date Expiration Date Visits Requested Visits Authorized [id number] Order Cancelled Medication Prior Authorization 01/22/20 21 1 1 Encounter Details Date Type Department Care Team (Latest Contact Info) Description 04/15/2021 14:30 EST Procedure visit [facility] Physical Medicine & [place] [address] Cora Foster MD [address] [place] [phone] 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HCC-CMS) ([facility]) (Primary Dx) Social History Tobacco [...] Progress Notes * Cora Foster MD - 04/15/2021 1430 EST Physical Medicine and Rehabilitation Clinic Subjective: Patient ID: Janes Gooden is an 50 y.o.. male Chief Complaint Patient presents with ??? Follow-up ??? Botox Injection HPI Janes returns to review management of his function and spasticity. His mother is accompanying him.He is still not return to the level of functioning that he was at before he had a shoulder strain and then falls with some decrease in his lower extremity stability with transfers. His last appointment and Botox injection with me was on 01/21/2021 when he received 300 units distributed into his posterior thigh. At that point he was requiring the present of apparent at all timesthus his mom was staying with him during the week and they were returning to the parental home on the weekend. I then had a phone conversation with Janes and his mother on 02/16/2021. Janes was still limited.They were finding that if everything was set up perfectly in terms of transfer services from 1 to the other he could accomplish some of those without someone providing physical assistance. Recommended a increase in PT activities and testing to check out a standing frame kind of trying to work on his range and standing endurance and consider other strategies to improve transfer safety. To this endoseas was referred to the outpatient PT department at [facility]. 03/09/2021 he was brought to the [facility] ED because of a fall in his apartment and striking his head. A head CT was completed which showed no acute fracture and no acute intracranial findings. Evaluation did not identify any acute neurologic change. Janes states he has no persistent symptoms from that fall and no further decline in his functionallevel or performance. Still not experiencing a recurrence of his shoulder pain. They have still been managing this with Janes and his mom residing at Janes's apartment in the [facility] area where he gets his usual home health services and aide support and home physical therapy 1 time per week and then on the weekends returning to his parents home so he can get better supervision and support over the weekend. He has made progress but not back to his prior level and not yet safe to be in his apartment with his prior level of support 25/09. They have been looking at different senior care facilities for placement. They thought he was going to get a placement at [facility] but they were informed of the last minute that his level of care was more than that facility could provide. He had been set up for an evaluation at [facility] that we had ordered but then canceled it because they thought he was going to be in this new facility. Functional issues they are describing now is that he can almost by himself get on and off the toilet as well as on and off the chair to his wheelchair but not independently enough. He is not complaining of shoulder pain. We discussed the role of Botox for his leg spasms in his posterior thigh muscles. He has pretty consistently felt that when that tone is diminished he has better ability to get slightly more hip and knee extension to facilitate his transfers. He definitely wants to repeat the Botox today. Patient Active Problem List Diagnosis ??? 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HCC-CMS) ([facility]) No past medical history on [...] unit injection Inject into the muscle. ??? Zaqkisj-Nmmtcfnli-Zoau 333-133-5 mg Tab Take 2 Tabs by [...] Physical Exam Alert and fully cooperative with all aspects of exam and procedure. Stable spastic quadriplegia Seated in power wheelchair Stable hip and knee flexion contractures with strong resistance to passive stretch. Transfer set up with him positioning chair close to facing exam table. With a person assist to thencomes up and bears weight on his legs and then essentially falls over onto the exam table surface. With max assist both legs are rotated up onto the exam table with him remaining on his stomach. Approximately two thirds range of motion at knees due to knee flexion contractures in this position with constant tone present in his hamstrings. Assessment: Janes is a 50-year-old gentleman with spastic quadriplegic CP. He has been receiving Botox injections to posterior thigh muscles since January 2008 with decrease in the degree of tightness and tonein his posterior thighs and and expressed increased ease of transfers. Transfers have always been achallenge in the limited time. That I have known and been following:. He is never had a negative effect from the Botox injections. He is appropriate to repeat Botox today. As his mom has been able to constantly observe him and assist him with transfers more recently she and Janes together will carefully look at and watched the response he gets to today's injections. Botox 300 units was injected without complication. Please see separate procedure note. Prior authorization is being requested for 300 units for next planned injection. He is scheduled at [facility] for a PT evaluation in order to look at additional assistive devicesquestion of standing frame or other transfer assist devices and strategies. Repeat assessment for potential repeat injections in 3 months. Plan: Encounter Diagnoses Name Primary? 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HCC-CMS) ([facility]) Yes Med Orders Placed This Visit and Additions to the Medication List Medications ??? botulinum toxin Type A (BOTOX) injection 300 Units No orders of the defined types were placed in this encounter. Future Appointments Date Time Provider Department Center 04/15/2021 14:30 [facility] 04/28/2021 10:30 Neela Carmona, PT [facility] None 05/19/2021 12:00 Neela Carmona, PT [facility] None 05/26/2021 12:00 Neeal Carmona, PT [facility] None 07/08/2021 15:15 Cora Foster MD [facility] None Portions of this document have been prepared with speech recognition software or keyboard marketing database coordinator techniques. Minor irregularities or keyboarding misprints may be present. I spent a total of 35 minutes on the date of this encounter meeting with the patient and reviewing documentation/coordinating care as described in the above note. This was separate from any procedures performed at the time of the visit. documented in this encounter Procedure Notes * Cora Foster MD - 04/15/2021 1430 EST Procedure: Procedures After reviewing history and [...] needle ?? 10/29/19 02/03/20 04/29/20 ??07/29/2020 01/21/21 04/15/2021 Left ? Semimemb ??75 ??75 ??75 75 75 100 LHBF ??75 ??50 ??50 ??75 75 50 SH BF ?25 ??25 ?? Right ? Semimem ??75 ??75 ??75 ??75 75 100 LH BF ??75 ??50 ??50 ??75 75 50 SH BF ?25 ??25 ?? Total ??300 ??300 ??300 ??300 300 300 Total botox units injected: 300 Total botox units wasted: 0 Plan: Return to clinic for assessment of Botox efficacy and repeat Botox injections in 3 months. Botox 300 units was injected without complication. Prior authorization is being requested for 300 units for next planned injection. Still to meet with PT at [facility] to look at transfers, assistive devices and alternate strategies. Future Appointments Date Time Provider Department Center 04/28/2021 10:30 Neela Carmona, PT [facility] None 05/19/2021 12:00 Neela Carmona, PT [facility] None 05/26/2021 12:00 Neela Carmona, PT [facility] None 07/08/2021 15:15 Cora Foster MD [facility] None documented in this encounter Plan of [...] Units, intramuscular, NOW X1, 1 dose, On Sun04/15/21 at 0000, Routine Given 04/15/2021 14:55 EST 300 Units documented in this encounter Care Teams Economic Analyst Relationship Specialty Start Date End Date Suyapa Duarte MD [address] [place] [phone] PCP - General Family Medicine - Primary Care 03/09/21 documented as of this encounter
--- OUTSIDE RECORDS SUMMARY | 2023-10-25 14:40 | XMS_ITS | Encounter Summary ---
Author Organization [facility] Address [address] [place] [address] Care Team Providers Care Cocoa Milling Machine Operator Name Role Phone Suyapa Duarte MD Primary Care Provider [phone] Encounter Details Date Type Department Care Team (Latest Contact Info) Description 10/26/2021 Plan of Care Documentation [facility] Rehabilitation Therapy [address] [phone] Social History Tobacco Use Types Packs/Day Years [...] as of this encounter Progress Notes * Yoko Scott, PT - 10/26/2021 0988 EDT Outpatient Rehab Plan of Care Assessment Janes has limited fractionated motor control in his legs or right upper extremity due to cerebral palsy with spastic quadriplegia. He has knee flexion contractures, a leg length discrepancy, fixed scoliosis and pelvic obliquity with rotation. He is wheelchair dependent but has been able to live independenly with intermittent outside support because he has maintained the abiilty to do self transfers and toileting using custom grab bar set up in the home. His transfers are very tenuous and he recently had a several month period where he was not able to transfer at all without assistance. Progression of his knee flexion contractures, spasticity, leg weakness or upper extremity control would put this in jeapardy. With a stander, he was able to weight bear and do prolonged knee stretch comfortably today, although the set up of the stander needed to have specific features, which we identified today. He also will require some assistance to get into and set up the device in the home. Family was unclear if this level of support is allowed with the resources currently in place, so I did not finalize a prescription/recommendation for a stander today. If he is able to identfy the staff to do this, I feel that shahriar would allow Janes to extend his period of independence by maintaining his leg strength andrange of motion. Long-Term Goals: Time Frame: 2 visits Goal: IF Janes can identify caregiver who can assist with it, goal is to be able to do a sustainedknee flexor stretch and leg weight bearing in order to prevent contracture and further weakness. Goal: Caregiver will demonstrate safety and independence setting Janes up in the device. Plan Physical therapy will be provided by the physical therapist and/or physical therapist assistant attorney general when medically appropriate Currently on hold pending family identifying personel who can be trained to assist Janes. I can complete the prescription without Janes in attendance if help is identified because we inventoried his needs today. Frequency: Other Frequency Comments: When the equipment is available for delivery Intensity: 90 minutes Duration: 2, Visits Duration Comments: In this clinic Interventions May Include: Therapeutic activities Patient/Family Education: Equipment Further Data: Other Further Data Comments: Family will report back when attendant care has been identified. Discharge Plan: When goals are met or progress plateaus (OR will discharge this plan of care if help in the home cannot be identified.) Yoko Scott, PT, DPT 10/26/2021 21:42 ATTENDING PHYSICIAN: Medicare certification needed. Your signature indicates you approve the therapy goals and plan of care outlined on this document dated 10/26/2021. Thank you! Attending Physician Signature Date Yoko Scott, PT 10/26/2021 21:45 documented in this encounter Plan of Treatment Not on file documented as of this encounter Visit Diagnoses Not on filedocumented in this encounter Care Teams Cocoa Milling Machine Operator Relationship Specialty Start Date End Date Suyapa Duarte MD [address] [place] [phone] PCP - General Family Medicine - Primary Care 03/09/21 documented as of this encounter
--- OUTSIDE RECORDS SUMMARY | 2023-10-25 14:40 | XMS_ITS | Encounter Summary ---
Author Organization [facility] Address [address] [place] [address] Care Team Providers Care Sorting Grapple Operator Name Role Phone Suyapa Duarte MD Primary Care Provider [phone] Reason for Visit * Reason Comments Follow-up Botox Injection * Medication Prior Authorization (See Order Priority) - Order Cancelled Specialty Diagnoses / Procedures Referred By Rubina perkins Referred To Contact Physical Medicine and Rehab Diagnoses 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HCC-CMS) Cora Foster MD [address] [place] [phone] [facility] Phys [place] [address] [place] [address] Referral ID Status Reason Start Date Expiration Date Visits Requested Visits Authorized [id number] Order Cancelled Medication Prior Authorization 2 1 1 Encounter Details Date Type Department Care Team (Latest Contact Info) Description 07/28/2021 15:45 EDT Procedure visit [facility] Physical Medicine & Rehabilitation - [place] [address] Cora Foster MD [address] [place] [phone] 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HCC-CMS) ([facility]) (Primary Dx) Social History Tobacco Use Types [...] Progress Notes * Cora Foster MD - 07/28/2021 1545 EDT Physical Medicine and Rehabilitation Clinic Subjective: Patient ID: Janes Gooden is an 50 y.o.. male Chief Complaint Patient presents with ??? Follow-up ??? Botox Injection HPI Janes to review issues related to his spastic quadriplegic cerebral palsy. He reports after his last injections he did well. He always consistently feels like he has less tightness in his legs and more confident and consistent with his transfer skills. He is accompanied to his appointment today by his father. At our last visit 04/15/2021 although he was making gains he still had not gotten back to his level of transfers where he was able to be independent for portions of the day. Since that visit he was able to achieve consistently safe enough transfers so he could return to his apartment full-time as opposed to residing back with his parents on weekends. He had had an evaluation since our last visit with to look at his transfer skills and approaches. I had asked for him also to be evaluated in a standing frame. One component of that was to test him in a standing frame. They identified him as a good candidate for standing frame. Janes and his parents were under the understanding that his standing frame had been ordered but they had not heard from [facility] about where that order was at. They also were not aware that [employer]. In that PT session they were introduced to some alternative transfer devices such as the Etac and Shefali Steady but these devices were not tested. They were given information so that they could be considered if Janes has problems again in the future. Patient Active Problem List Diagnosis ??? 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HCC-CMS) (HCC) No past medical history on file. Past [...] times daily. 100 mg AM, 200 at 2000 ??? atenolol (TENORMIN) 50 mg tablet Take 100 mg by mouth daily. ??? botulinum toxin Type A (BOTOX) 100 unit injection Inject into the muscle. ??? Sfrzpbe-Viqbsannm-Keai 333-133-5 mg Tab Take 2 Tabs by [...] on file to calculate BMI. Physical Exam Nia is alert and fully cooperative. Speech: Slow with baseline dysarthria He has stable spastic quadriplegia and is seated in his power wheelchair. He is stable hip and kneeflexion contractures with strong resistance to passive stretching. Aware of sensation and touch in all extremities Knee flexion contractures approximately -35 degrees from full extension (slightly less on the left than the right) MAS scores: 4 at max endrange Janes's transfer today was done with more full body assist from his father. He was positioned facedown for the injections. Assessment: Janes is a 50-year-old gentleman with spastic quadriplegic CP. He did well with his last set of injections and after those injections although he was gradually improving and his transfer skills he was able then to get back to independent transfers when needed. He has been receiving Botox injections in the posterior thigh muscles since January 2008. He is appropriate for repeat Botox injections today. He did well with the slight change in injection pattern that I made last visit. Botox 300 units was injected without complication. Please see separate procedure note. Prior authorization is being requested for 300 units for next planned injection. Will try and facilitate the process for identifying where the standing frame order and plan are at. After the appointment identified that I had not heard back from physical therapy as to specifics ofthe standing frame that he would best be served by. Thus the prescription had actually not been sent. Please see additional encounter following this appointment. Have referred him for a formal DME PT/vendor evaluation to test out and identify an appropriate standing frame for him. Plan: Encounter Diagnoses Name Primary? 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HCC-CMS) (HCC) Yes Med Orders Placed This Visit and Additions to the Medication List Medications ??? botulinum toxin Type A (BOTOX) injection 300 Units Other Orders Placed This Visit Procedures ??? Ambulatory Clinic Admin Med Prior Authorization Request ([id number]) Future Appointments Date Time Provider Department Center 10/27/2021 13:00 Cora Foster MD [facility] None Portions of this document have been prepared with speech recognition software or keyboard principal data architect techniques. Minor irregularities or keyboarding misprints may be present. I spent a total of 30 minutes on the date of this encounter meeting with the patient and reviewing documentation/coordinating care as described in the above note. This was separate from any procedures performed at the time of the visit. documented in this encounter Procedure Notes * Cora Foster MD - 07/28/2021 1545 EDT Procedure: Procedures After reviewing history and [...] 10/29/19 02/03/20 04/29/20 ??07/29/2020 01/21/21 04/15/21 07/28/21 Left ? Semimemb ??75 ??75 ??75 75 75 100 100 LHBF ??75 ??50 ??50 ??75 75 50 50 SH BF ?25 ??25 ?? Right ? Semimem ??75 ??75 ??75 ??75 75 100 100 LH BF ??75 ??50 ??50 ??75 75 50 50 SH BF ?25 ??25 ?? Total ??300 ??300 ??300 ??300 300 300 300 Total botox units injected: 300 Total botox units wasted: 0 Plan: Return to clinic for assessment of Botox efficacy and repeat Botox injections in 3 months. Botox 300 units was injected without complication. Prior authorization is being requested for 300 units for next planned injection. Future Appointments Date Time Provider Department Center 10/27/2021 13:00 [facility] documented in this encounter Plan of [...] intramuscular, NOW X1, 1 dose, On Marie 07/28/21 at 0000, Routine Given 07/28/2021 16:14 EDT 300 Units documented in this encounter Care Teams Sorting Grapple Operator Relationship Specialty Start Date End Date Suyapa Duarte MD [address] [place] [phone] PCP - General Family Medicine - Primary Care 03/09/21 documented as of this encounter
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
--- OUTSIDE RECORDS SUMMARY | 2023-10-25 14:41 | XMS_ITS | Encounter Summary ---
Author Organization [facility] Address [address] [place] [address] Care Team Providers Care Harbour Master Name Role Phone Lucy Elizabeth MD Primary Care Provider [phone] Reason for Visit * Reason Onset Date Comments Appointment Related 11/25/2018 Encounter Details Date Type Department Care Team (Late st Contact Info) Description 11/25/2018 Telephone [facility] Rehabilitation Therapy - [address] [phone] Therapy, Physical Appointment Related Social History Tobacco Use Types Packs/Day Years Used Date Smoking Tobacco: Former Smokeless Tobacco: Current Sex and Gender Information Value Date Recorded Sex Assigned at Not on file Gender Identity Male 06/12/2019 8:16 EDT Sexual Orientation Not on file documented as of this encounter Functional Status Functional Status Response Date of Assess ment Because of a physical, menta l, or [...] Notes * Telephone Encounter - Hodan Parker - 11/25/2018 1359 EDT I spoke with the patients parent and reminded them of their wheelchair clinic appointment, to occurin two business days time. Hodan Parker 11/25/2018 14:00 documented in this encounter Plan of Treatment Not on file documented as of this encounter Visit Diagnoses Not on filedocumented in this encounter Care Teams Harbour Master Relationship Specialty Start Date End Date Lucy Elizabeth MD [address] [place] [phone] PCP - General 09/28/08 03/08/21 documented as of this encounter
--- OUTSIDE RECORDS SUMMARY | 2023-10-25 14:41 | XMS_ITS | Encounter Summary ---
Author Organization [facility] Address [address] [place] [address] Care Team Providers Care Sharepoint Net Developer Name Role Phone Lucy Elizabeth MD Primary Care Provider [phone] Encounter Details Date Type Department Care Team (Late st Contact Info) Description 03/19/2020 Results Only [facility] - Main [address] [address] Lucy Elizabeth MD [address] [place] [phone] Social History Tobacco Use Types Packs/Day [...] Procedure Name Priority Date/Time Associated Diagnosis Comments URIC ACID Routine 03/19/2020 9:45 EST TSH Routine 03/19/2020 9:45 EST MAGNESIUM Routine 03/19/2020 9:45 EST HEMOGLOBIN A1C Routine 03/19/2020 9:45 EST LIPID PROFILE (INCLUDES CHOLESTEROL, TRIGLYCERIDES, HDL, LDL) Routine 03/19/2020 9:45 EST COMPREHENSIVE METABOLIC PANEL (CMP) Routine 03/19/2020 9:45 EST documented in this encounter Results * (ABNORMAL) HEMOGLOBIN A1C (03/19/2020 9:45 EST) Hemoglobin A1c 6.4(H) 4.0 - 6.0 % 03/19/2020 19:49 EST [facility] Comment: > or =18 years: ??Increased risk for diabetes (prediabetes): 5.7-6.4% Diabetes: > or =6.5% Therapeutic goals for glycemic control (ADA) Adults: - Goal of therapy: <7.0% HbA1c - Action suggested: >8.0% HbA1c Pediatric patients: - Toddlers and preschoolers: <8.5% (but >7.5%) - School age (6-12 years): <8% - Adolescents and young adults (13-19 years): <7.5% Est Avg Glucose 137 mg/dL 19:49 EST [facility] 03/19/2020 9:45 EST 03/19/2020 15:10 EST Lucy Elizabeth MD CHEMISTRY & BLOOD GA S ORDERABLES [facility] [address] [place] [address] * TSH (03/19/2020 9:45 EST) THYROID STIM HORMONE - [facility] 1.62 0.46 - 4.68 uIU/ml 03/19/2020 16:24 EST [facility] Comment: The results of this assay can be falsely lowered due to the consumption of Biotin. 03/19/2020 9:45 EST 03/19/2020 15:10 EST Lucy Elizabeth MD CHEMISTRY & BLOOD GA S ORDERABLES Performing Organization Address [facility] [address] [place] [address] * URIC ACID (03/19/2020 9:45 EST) Pathologist [facility] URIC ACID - [facility] 5.2 3.9 - 9.0 mg/dL 03/19/2020 15:55 EST [facility] 03/19/2020 9:45 EST 03/19/2020 15:10 EST Lucy Elizabeth MD CHEMISTRY & BLOOD GA S ORDERABLES Performing Organization Address [facility] [address] [place] [address] * MAGNESIUM (03/19/2020 9:45 EST) Pathologist [facility] Magnesium 1.80 1.7 - 2.8 mg/dL 03/19/2020 15:55 EST [facility] 03/19/2020 9:45 EST 03/19/2020 15:10 EST Lucy Elizabeth MD CHEMISTRY & BLOOD GA S ORDERABLES Performing Organization Address [facility] [address] [place] [address] * (ABNORMAL) LIPID PROFILE (INCLUDES CHOLESTEROL, TRIGLYCERIDES, HDL, LDL) (03/19/2020 9:45 EST) Pathologist [facility] Triglyceride 288 <150 mg/dL 03/19/2020 15:55 EST [facility] Comment: Adult: Normal: ?<150 mg/dl ? Borderline High: 150-199 mg/dl ? High: ?200-499 mg/dl ? Very High: >ae=820 Cholesterol 152 <200 mg/dL 03/19/2020 15:55 [facility] Comment: Acceptable: ??<200 Borderline: ??200-239 High: ?> or = 240 Chol/HDL Ratio 4.1 0 - 5.0 03/19/2020 15:55 [facility] Comment: DESIRABLE RATIO IS LESS THAN 4.1 PATIENTS ARE CONSIDERED AT RISK: WOMEN RATIO >5 MEN RATIO >6 FASTING? - [facility] Yes 15:10 [facility] HDL 37(L) 40 - 60 mg/dL 03/19/2020 15:55 [facility] Comment: ?? Reference Range Low: ? < 40 ??mg/dL Normal: ??40-60 mg/dL High: ?>= 60 mg/dL LDL CHOLESTEROL - [facility] 57(L) 60 - 100 mg/dL 03/19/2020 15:55 [facility] Non HDL Cholesterol 115 mg/dl 03/19/2020 15:55 [facility] Comment: Desirable: ?Less than 130 Borderline High: ??130-159 High: ? 160-189 Very High: ?Greater than or equal to 190 03/19/2020 9:45 EST 03/19/2020 15:10 EST Lucy Elizabeth MD CHEMISTRY & BLOOD GA S ORDERABLES [facility] [address] [place] [address] * (ABNORMAL) COMPREHENSIVE METABOLIC PANEL (CMP) (03/19/2020 9:45 EST) Albumin % 4.7 3.4 - 4.9 g/dL 03/19/2020 15:55 [facility] ALKALINE PHOSPHATASE - [facility] 70 38 - 126 U/L 03/19/2020 15:55 [facility] BILIRUBIN TOTAL 0.5 0.2 - 1.3 mg/dL 03/19/2020 15:55 [facility] BUN - [facility] 24 10 - 26 mg/dL 03/19/2020 15:55 [facility] CALCIUM - [facility] 10.7(H) 8.5 - 10.5 mg/dL 03/19/2020 15:55 [facility] Chloride 99 96 - 110 mmol/L 03/19/2020 15:55 [facility] CO2 Total 27 21 - 32 mEq/L 03/19/2020 15:55 [facility] CREATININE 0.99 0.66 - 1.25 mg/dL 03/19/2020 15:55 [facility] eGFR >60 03/19/2020 15:55 [facility] Comment: Chronic renal impairment is defined as GFR <60 Multiply result by 1.210 for patients. Anion Gap 13 0 - 18 03/19/2020 15:55 [facility] GLUCOSE - [facility] 112(H) 70 - 100 mg/dL 03/19/2020 15:55 [facility] Potassium 4.4 3.5 - 5.0 mEq/L 03/19/2020 15:55 [facility] Sodium 139 136 - 145 mEq/L 03/19/2020 15:55 [facility] TOTAL PROTEIN - [facility] 7.6 6.2 - 8.2 gm/dL 03/19/2020 15:55 [facility] SGOT/AST - [facility] 28 17 - 59 U/L 03/19/2020 15:55 [facility] SGPT/ALT - [facility] 21 0 - 50 U/L 15:55 [facility] 03/19/2020 9:45 EST 03/19/2020 15:10 EST Lucy Elizabeth MD CHEMISTRY & BLOOD GA S ORDERABLES [facility] [address] [place] [address] documented in this encounter Visit Diagnoses Not on filedocumented in this encounter Care Teams Sharepoint Net Developer Relationship Specialty Start Date End Date Lucy Elizabeth MD [address] [place] [phone] PCP - General 09/28/08 03/08/21 documented as of this encounter
--- OUTSIDE RECORDS SUMMARY | 2023-10-25 14:41 | XMS_ITS | Encounter Summary ---
Author Organization [facility] Address [address] [place] [address] Care Team Providers Care It Infrastructure Manager Name Role Phone Lucy Elizabeth MD Primary Care Provider [phone] Encounter Details Date Type Department Care Team (Late st Contact Info) Description 03/28/2019 Results Only [facility] [phone] Suyapa Duarte MD [address] [place] [phone] Social History Tobacco Use Types Packs/Day [...] Procedure Name Priority Date/Time Associated Diagnosis Comments VIT D, 25-HYDROXY - [facility] Routine 03/28/2019 9:15 EST COMPLETE BLOOD COUNT WITH DIFFERENTIAL (AUTO) Routine 03/28/2019 9:15 EST MAGNESIUM Routine 03/28/2019 9:15 EST HEMOGLOBIN A1C Routine 03/28/2019 9:15 EST LIPID PROFILE (INCLUDES CHOLESTEROL, TRIGLYCERIDES, HDL, LDL) Routine 03/28/2019 9:15 EST COMPREHENSIVE METABOLIC PANEL (CMP) Routine 03/28/2019 9:15 EST documented in this encounter Results * (ABNORMAL) HEMOGLOBIN A1C (03/28/2019 9:15 EST) Hemoglobin A1c 9.8(H) 4.0 - 6.0 % 03/28/2019 12:[address] [facility] Comment: > or =18 years: ??Increased risk for diabetes (prediabetes): 5.7-6.4% Diabetes: > or =6.5% Therapeutic goals for glycemic control (ADA) Adults: - Goal of therapy: <7.0% HbA1c - Action suggested: >8.0% HbA1c Pediatric patients: - Toddlers and preschoolers: <8.5% (but >7.5%) - School age (6-12 years): <8% - Adolescents and young adults (13-19 years): <7.5% Est Avg Glucose 235 mg/dL 0 12:[address] [facility] 03/28/2019 9:15 EST 03/28/2019 11:14 EST Suyapa Duarte MD CHEMISTRY & BLOOD GA S ORDERABLES [facility] * VIT D, 25-HYDROXY - [facility] (03/28/2019 9:15 EST) VIT D, 25 HYDROXY - [facility] 77.6 30 - 100 ng/ml 03/28/2019 12:[address] [facility] Comment: ? 25-Hydroxy D Total (D2+D3) ?Expected Values Deficient: ?<20 ng/ml Insufficient: ? 20- <30 ng/ml Sufficient: ? 30-100 ng/ml Potential intoxication: >100 ng/ml 03/28/2019 9:15 EST 03/28/2019 11:14 EST Suyapa Duarte MD CHEMISTRY & BLOOD GA S ORDERABLES Performing Organization Address [facility] de Phone Number [facility] * (ABNORMAL) MAGNESIUM (03/28/2019 9:15 EST) Magnesium 1.40(L) 1.7 - 2.8 mg/dL 03/28/2019 11:47 [facility] 03/28/2019 9:15 EST 03/28/2019 11:14 EST Suyapa Duarte MD CHEMISTRY & BLOOD GA S ORDERABLES Performing Organization Address [facility] de Phone Number [facility] * (ABNORMAL) LIPID PROFILE (INCLUDES CHOLESTEROL, TRIGLYCERIDES, HDL, LDL) (03/28/2019 9:15 EST) Triglyceride 206 <150 mg/dL 03/28/2019 11:47 [facility] Comment: Adult: Normal: ?<150 mg/dl ? Borderline High: 150-199 mg/dl ? High: ?200-499 mg/dl ? Very High: >gk=667 Cholesterol 130 <200 mg/dL 03/28/2019 11:47 [facility] Comment: Acceptable: ??<200 Borderline: ??200-239 High: ?> or = 240 Chol/HDL Ratio 3.0 0 - 5.0 03/28/2019 11:47 [facility] Comment: DESIRABLE RATIO IS LESS THAN 4.1 PATIENTS ARE CONSIDERED AT RISK: WOMEN RATIO >5 MEN RATIO >6 FASTING? - [facility] Yes 0 11:15 [facility] HDL 42 40 - 60 mg/dL 03/28/2019 11:47 [facility] Comment: ?? Reference Range Low: ? < 40 ??mg/dL Normal: ??40-60 mg/dL High: ?>= 60 mg/dL LDL CHOLESTEROL - [facility] 47(L) 60 - 100 mg/dL 03/28/2019 11:47 [facility] Non HDL Cholesterol 88 mg/dl 03/28/2019 11:47 [facility] Comment: Desirable: ?Less than 130 Borderline High: ??130-159 High: ? 160-189 Very High: ?Greater than or equal to 190 03/28/2019 9:15 EST 03/28/2019 11:14 EST Suyapa Duarte MD CHEMISTRY & BLOOD GA S ORDERABLES [facility] * (ABNORMAL) COMPREHENSIVE METABOLIC PANEL (CMP) (03/28/2019 9:15 EST) Albumin % 4.6 3.4 - 4.9 g/dL 03/28/2019 11:47 [facility] ALKALINE PHOSPHATASE - [facility] 70 38 - 126 U/L 03/28/2019 11:47 [facility] BILIRUBIN TOTAL 0.5 0.2 - 1.3 mg/dL 03/28/2019 11:47 [facility] BUN - [facility] 19 10 - 26 mg/dL 03/28/2019 11:47 [facility] CALCIUM - [facility] 10.3 8.5 - 10.5 mg/dL 03/28/2019 11:47 [facility] Chloride 97 96 - 110 mmol/L 03/28/2019 11:47 [facility] CO2 Total 28 21 - 32 mEq/L 03/28/2019 11:47 [facility] CREATININE 0.85 0.66 - 1.25 mg/dL 03/28/2019 11:47 [facility] eGFR >60 03/28/2019 11:47 [facility] Comment: Chronic renal impairment is defined as GFR <60 Multiply result by 1.210 for patients. Anion Gap 13 0 - 18 03/28/2019 11:47 [facility] GLUCOSE - [facility] 156(H) 70 - 100 mg/dL 03/28/2019 11:47 [facility] Potassium 3.9 3.5 - 5.0 mEq/L 03/28/2019 11:47 [facility] Sodium 138 136 - 145 mEq/L 03/28/2019 11:47 [facility] TOTAL PROTEIN - [facility] 7.5 6.2 - 8.2 gm/dL 03/28/2019 11:47 [facility] SGOT/AST - [facility] 29 17 - 59 U/L 03/28/2019 11:47 [facility] SGPT/ALT - [facility] 25 0 - 50 U/L 0 11:47 [facility] 03/28/2019 9:15 EST 03/28/2019 11:14 EST Suyapa Duarte MD CHEMISTRY & BLOOD GA S ORDERABLES [facility] * (ABNORMAL) COMPLETE BLOOD COUNT WITH DIFFERENTIAL (AUTO) (03/28/2019 9:15 EST) Gran # 5.0 2.2 - 8.85 10e3/uL 03/28/2019 11:36 [facility] BASO # - [facility] 0.05 0.01 - 0.11 10e/uL 03/28/2019 11:36 [facility] BASO % - [facility] 1 0 - 2 % 03/28/2019 11:36 [facility] EOS # - [facility] 0.10 0.03 - 0.61 10e3/ul 03/28/2019 11:36 [facility] EOS % - [facility] 1 0 - 5 % 03/28/2019 11:36 [facility] GRAN % - [facility] 46.9 40 - 80 % 03/28/2019 11:36 [facility] HEMATOCRIT - [facility] 45.0 39.5 - 50.2 % 03/28/2019 11:36 [facility] HEMOGLOBIN - CV 14.8 13.8 - 17.3 g/dl 03/28/2019 11:36 [facility] IG# - [facility] 0.04 0 - 0.7 10e3/uL 03/28/2019 11:36 [facility] IG% - [facility] 0.4 0 - 0.9 % 03/28/2019 11:36 [facility] LYMPH # - [facility] 4.7(H) 1.09 - 3.3 10e3/ul 03/28/2019 11:36 [facility] LYMPH% - [facility] 44.4(H) 20 - 40 % 03/28/2019 11:36 [facility] MEAN CORPUSCULAR HGB - [facility] 30.1 27.6 - 33.0 pg 03/28/2019 11:36 [facility] MEAN CORPUSCULAR HGB CONC - [facility] 32.9 32.8 - 36.4 g/dL 03/28/2019 11:36 [facility] MEAN CELL VOLUME - [facility] 91.6 81 - 95 fl 03/28/2019 11:36 [facility] MONO # - [facility] 0.7 0.1 - 0.8 10e3/uL 03/28/2019 11:36 [facility] MONO% - MC 6.9 0 - 12 % 03/28/2019 11:36 [facility] PLATELET COUNT 163 141 - 377 10e3/ul 03/28/2019 11:36 [facility] RED BLOOD COUNT - [facility] 4.91 4.36 - 5.78 10e3/ul 03/28/2019 11:36 [facility] RED CELL DISTRI WIDTH - [facility] 14.1 <14.2 % 03/28/2019 11:36 [facility] WHITE BLOOD COUNT - [facility] 10.6(H) 4.0 - 10.4 10e3/ul 03/28/2019 11:[address] [facility] 03/28/2019 9:15 EST 03/28/2019 11:14 EST Suyapa Duarte MD HEMATOLOGY & PF4 ORD ERABLES [facility] documented in this encounter Visit Diagnoses Not on filedocumented in this encounter Care Teams It Infrastructure Manager Relationship Specialty Start Date End Date Lucy Elizabeth MD [address] [place] [phone] PCP - General 09/28/08 03/08/21 documented as of this encounter
--- OUTSIDE RECORDS SUMMARY | 2023-10-25 14:41 | XMS_ITS | Encounter Summary ---
Author Organization [facility] Address [address] [place] [address] Care Team Providers Care Candy Bar Attendant Name Role Phone Lucy Elizabeth MD Primary Care Provider [phone] Encounter Details Date Type Department Care Team (Late st Contact Info) Description 05/13/2019 Results Only [facility] [phone] Suyapa Duarte MD [address] [place] [phone] Social History Tobacco Use Types Packs/Day [...] Procedure Name Priority Date/Time Associated Diagnosis Comments GLYCOHEMOGLOBIN POC - [facility] Routine 05/13/2019 13:08 EDT documented in this encounter Results * (ABNORMAL) GLYCOHEMOGLOBIN POC - [facility] (05/13/2019 13:08 EDT) Hemoglobin A1c 7.5(H) 4.0 - 6.0 % 05/13/2019 13:09 EDT [facility] AVG CALCULATED GLUCOSE - [facility] 170(H) 60 - 115 MG/DL 05/13/2019 13:09 EDT [facility] 05/13/2019 13:0 8 EDT 05/13/2019 13:08 EDT Suyapa Duarte MD CHEMISTRY & BLOOD GA S ORDERABLES [facility] documented in this encounter Visit Diagnoses Not on filedocumented in this encounter Care Teams Candy Bar Attendant Relationship Specialty Start Date End Date Lucy Elizabeth MD [address] [place] [phone] PCP - General 09/28/08 03/08/21 documented as of this encounter
--- OUTSIDE RECORDS SUMMARY | 2023-10-25 14:41 | XMS_ITS | Encounter Summary ---
Author Organization [facility] Address [address] [place] [address] Care Team Providers Care Spare Parts Clerk Name Role Phone Lucy Elizabeth MD Primary Care Provider Reason for Visit * Reason Onset Date Comments Other 02/11/2021 Encounter Details Date Type Department Care Team (Late st Contact Info) Description 02/11/2021 Telephone [facility] Sports Medicine Program [place] [address] [place] [address] Cora Pardo, RN Other Social History Tobacco Use Types Packs/Day Years [...] encounter Miscellaneous Notes * Telephone Encounter - Cora Pardo, RN - 02/11/2021 1153 EST Vm from states Janes Greenfield received Botox injections 2 weeks ago, his legs are not as strong as they should be, she would like to discuss with Dr Foster. I placed call to Desiree for addl info. She states Janes has been having shoulder issues, which have pretty much resolved. Noted increased lower extremity weakness prior to last Botox, he is no longer able to safely transfer, legs will not hold him up. Previously was alone in his apt with HH support, he is no longer safe to be alone. He will be going back to his parent's home for now, they are in discussion with some agencies for options. Desiree would like to speak with Dr Foster. I advised Desiree that Dr Foster is not in office today, but I will send her a message. Desiree states it is fine if she calls next week. Desiree's documented in this encounter Plan of Treatment Not on file documented as of this encounter Visit Diagnoses Not on filedocumented in this encounter Care Teams Spare Parts Clerk Relationship Specialty Start Date End Date Lucy Elizabeth MD [address] [place] [phone] PCP - General 09/28/08 03/08/21 documented as of this encounter
--- OUTSIDE RECORDS SUMMARY | 2023-10-25 14:41 | XMS_ITS | Encounter Summary ---
Author Organization [facility] Address [address] [place] [address] Care Team Providers Care Hair Or Beauty Salon Manager Name Role Phone Lucy Elizabeth MD Primary Care Provider [phone] Reason for Visit * Reason Onset Date Comments Appointment Related 11/08/2018 Encounter Details Date Type Department Care Team (Late st Contact Info) Description 11/08/2018 Telephone [facility] Rehabilitation Therapy [address] [phone] Therapy, Physical Appointment Related Social History Tobacco [...] * Telephone Encounter - Hodan [place] - 11/08/2018 1021 EDT [facility] - [address] [address] Person providing information? Bambi Ramírez Guardian: Dad Phone number: [phone] (Mom , Dad ) 1. Who recommended that you be seen in wheelchair clinic? Dr. Melendez 2. What is your diagnosis (reason for needing a wheelchair)? CP 3. Have you seen your referring physician within the past 6 months for the diagnosis (reason you need a wheelchair)? Yes 4. Reason for appointment? Power wheelchair 5. What type of chair are you currently using? Power wheelchair 6. How old is the wheelchair? 8 a. If less than 3 years old: What isn't working with the present chair? - 7. Do you still fit in this wheelchair? Yes 8. If being seen for a new wheelchair: what kind do you think you need? Power wheelchair 9. Where do you plan to use your wheelchair? For all activities of daily living in home and community 10. Do you anticipate any problems getting your new wheelchair in, out or around your home? No 11. Is there a ramp to get into your home? Comment: Handicap accessible housing 12. Do you have any skin breakdown on your buttocks caused by seating/cushion? no 13. Are you able to walk in your home? no If yes: Distance able to walk? - Device used? 14. How do you transfer? Stand pivot with bar 15. Do you need assistance for your transfers? Not at home. 16. Will anyone be with you at time of appointment? Yes 17. Approximate Height? 4' 8 18. Approximate Weight? 150 lbs 19. Name of Medical Vendor? [employer] 20. Are you receiving Physical Therapy, Occupational Therapy or Speech-Language Pathology Services?No 21. Are there any additional areas of function or concern that you would like help with? No 22. Do you have any other requests, comments, questions you would like to add prior to your appointment? No 23. To whom should we send an additional questionnaire (if needed)? - [facility] - [address] [address] Telephone Intake Information for Scheduling NEW Patients for Therapy Referring Provider: Naga Melendez MD Script/referral MD office faxed Primary Insurance: [facility] (Medicare) Secondary Insurance: Medicaid If Medicare: Have you received a letter from Medicare about the therapy cap? No Have you been seen in therapy since March of this year? No By whom? - How many visits have you had since March of this year - Are you receiving any home health or VNA services? No If YES, which home health agency? - Notes/other: Janes lives independently in [place] in [facility] apartment. He also has a small chair for travel that he uses. Mom and Dad live in [facility]. Part 1 - Zev Flores, PT 11/27 - 1 hour initial evaluation. Date: Dec 19 Therapist: Zev @ 2:30 Location: [facility] Name of Supplier: [employer] Name of Rep: Bo @ 2:30 Reason For Appt: (manual, power, scooter, cushion, seating): Power Pressure Mapping? No Hodan [place] documented in this encounter Plan of Treatment Not on file documented as of this encounter Visit Diagnoses Not on filedocumented in this encounter Care Teams Hair Or Beauty Salon Manager Relationship Specialty Start Date End Date Lucy Elizabeth MD [address] [place] [phone] PCP - General 09/28/08 03/08/21 documented as of this encounter
--- OUTSIDE RECORDS SUMMARY | 2023-10-25 14:41 | XMS_ITS | Encounter Summary ---
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 Igedhni-Quebhnoqp-Zzcd 333-133-5 mg Tab Take 2 Tabs by mouth daily. celecoxib (CELEBREX) 100 mg capsule Take 1 Capsule by mouth as needed. divalproex (DEPAKOTE) 500 mg delayed release tablet Take 1 Tablet by mouth 2 times daily. levothyroxine (SYNTHROID) 112 mcg tablet Take 1 [...] Take 1 Tablet by mouth every evening. triamterene-hydrochlorot hiazide (MAXZIDE) 75-50 mg per tablet Take 1 Tablet by mouth daily. VITAMIN B COMPLEX (B-50 COMPLEX ORAL) Take by mouth daily. Chromium Picolinate 400 mcg Tab Take 200 mcg by mouth daily 08/06/2019 documented as of this encounter Discharge Disposition Disposition Code Departure Means Destination Home or Self Care documented in this encounter Plan of Treatment Not on file documented as of this encounter Visit Diagnoses Not on filedocumented in this encounter Care Teams Rn Clinical Coordinator Relationship Specialty Start Date End Date Lucy Elizabeth MD [address] [place] [phone] PCP - General 09/28/08 03/08/21 documented as of this encounter
--- OUTSIDE RECORDS SUMMARY | 2023-10-25 14:41 | XMS_ITS | Encounter Summary ---
Author Organization [facility] Address [address] [place] [address] Care Team Providers Care Sales Development Consultant Name Role Phone Lucy Elizabeth MD Primary Care Provider [phone] Encounter Details Date Type Department Care Team (Late st Contact Info) Description 05/23/2018 Historical Results Only [facility] Lab - Main [address] [address] Lucy Elizabeth MD [address] [place] [phone] Social History Tobacco Use Types Packs/Day [...] Date/Time Associated Diagnosis Comments HEMOGLOBIN A1C Routine 05/23/2018 10:00 EDT documented in this encounter Results * (ABNORMAL) HEMOGLOBIN A1C (05/23/2018 10:00 EDT) Hemoglobin A1c 7.5(H) 4.0 - 6.0 % 05/23/2018 13:05 EDT [facility] Est Avg Glucose 169 mg/dL 9 13:05 EDT [facility] 05/23/2018 10:0 0 EDT 05/23/2018 10:50 EDT Lucy Elizabeth MD CHEMISTRY & BLOOD GA S ORDERABLES [facility] documented in this encounter Visit Diagnoses Not on filedocumented in this encounter Care Teams Sales Development Consultant Relationship Specialty Start Date End Date Lucy Elizabeth MD [address] [place] [phone] PCP - General 09/28/08 03/08/21 documented as of this encounter
--- OUTSIDE RECORDS SUMMARY | 2023-10-25 14:41 | XMS_ITS | Encounter Summary ---
Author Organization [facility] Address [address] [place] [address] Care Team Providers Care Logistics Center Manager Name Role Phone Lucy Elizabeth MD Primary Care Provider [phone] Reason for Visit * Reason Onset Date Comments Follow-up 02/16/2021 Encounter Details Date Type Department Care Team (Late st Contact Info) Description 02/16/2021 Telephone [facility] Physical Medicine & [place] [address] [place] [address] Cora Foster MD [address] [place] [phone] Follow-up Social History Tobacco Use Types Packs/Day Years [...] Miscellaneous Notes * Telephone Encounter - Cora Foster MD - 02/17/2021 6013 EST Contacted Janes's mother by phone this morning. Janes was available in the room to add input. He is till has not been able to regain his degree of transfer function that he had prior to that hehad his shoulder injury. His shoulder has recovered and is not causing pain but because of his sense of increased weakness in his legs he is transfer function cannot be independent 24 hours/day. He has been spending more time back with his parents who have been bringing him back and forth between their home apartment where he has partial care support. He is been getting once weekly home health PTthere but they do not have staff to provide more frequent services. There are some transfers are Janes is doing now without someone providing physical assistance wheneverything is set up perfectly in his bedroom. He has an object to grab onto and can have the chairposition just right. He is having a harder time getting his little bit of jump up to get some height to bring his bottom over from one surface to the other which makes transfers inconsistent. Janes is not reporting a pain. He sometimes gets some discomfort in his posterior thighs in the region where he has his Botox injections. Discussed with Janes's mom that his transfers in the time that I have followed him have always been extremely borderline. His severe crouched position is something that has been longstanding. Potentially the several weeks that he was unable to do his usual transfer when his shoulder was hurting him may have tipped the balance of keeping his transfer function going. The role of Botox was to calm the force of his hamstring contractures so that he could try and achieve some slightly improved extension moment when doing his transfers. I do not think the Botox resulted in a decline but it may no longer be quite enough. He has never been tried in a standing frame to try and optimize range to her knowledge. In the distant past he has enjoyed exercising in the pool but that is not environmentally reasonable right now. My impression is that he is experiencing gradual decline related to aging and gradual loss of rangeof motion and strength and he has just crossed the threshold at this point. Whether he can regain that function with trying to work on range, improve some of his extensor muscle group strength enoughto return to his previous level of semiindependence in his apartment is unclear. His mom is aware that this might not be a situation that can get back to and they are communicatingwith agencies and different support options to look at the options. They all are committed if at all possible to having him be maintained in his apartment where he has been for many years. To this end he would best be evaluated in our outpatient PT setting at [facility] to look at overall strength and range of motion, mode of attempting transfers and alternative strategies either with physical maneuvers and positioning or with alternative devices. Additionally, I would be interested in seeing whether he could get positioned in a standing frame and consider this as a possible modefor trying to prevent further progression of lower extremity contractures and a possible improve range of motion. Try to help identify strengthening regimens that could be carried through at home. These are evaluations that would have to happen in the outpatient setting. He could be followed through with recommendations on his program, on his equipment that would be passed on to his home health PT team. Orders Placed This Encounter Procedures ??? Amb Consult/Follow Up Physical Therapy - [facility] Had developed a shoulder strain on one side that prevented him from performing his usual transfers for at least several weeks. He has ongoing home health PT weekly. The shoulder pain has resolved buthe has not been able to return to his prior level of transfer function which he could do generally independently in an appropriately set up situation. 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 Because of this he cannot be back at his home apartment with his usual level of part-time assistance and is intermittently needing to reside back with his parents. Please evaluate for ways to improve range of motion, look to improve lower extremity strength, improve transfer safety, look at any other assistive transfer devices that could be utilized, assess role of a standing frame in trying to improve lower extremity range of motion and lower extremity strength that could be utilized [place]. Standing Status: Future Standing Expiration Date: 02/17/2022 Referral Priority: See Order Priority Referral Type: PT/OT/ST Referral Reason: Specialty Services Required Number of Visits Requested: 1 * Telephone Encounter - Yanick Ortiz MA - 02/16/2021 1134 EST Desiree calls again with request to speak w/ Dr. Foster concerning Janes's inability to make transfers now. She can be reached at [phone]. 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
--- OUTSIDE RECORDS SUMMARY | 2023-10-25 14:41 | XMS_ITS | Encounter Summary ---
Author Organization [facility] Address [address] [place] [address] Care Team Providers Care Zigzag Tunnel Elastic Operator Name Role Phone Lucy Elizabeth MD Primary Care Provider [phone] Reason for Visit * Reason Onset Date Comments Appointment Related 01/02/2019 Encounter Details Date Type Department Care Team (Late st Contact Info) Description 01/02/2019 Telephone [facility] Rehabilitation Therapy - [address] [phone] Therapy, Physical Appointment Related Social History Tobacco [...] Telephone Encounter - Hodan Parker MA - 01/02/2019 1007 EDT Call placed to parent of patient, David, letting him know that we are unable to get the signed notes dated 11/27/18 and 12/19/18 signed and back from Naga Melendez MD. This director medical writing has made four request for the note dated 11/27/18 to include two telephone calls. Per father he will reach out to Dr. Melendez and ask that this be expedited. Hodan Parker 01/02/2019 10:10 documented in this encounter Plan of Treatment Not on file documented as of this encounter Visit Diagnoses Not on filedocumented in this encounter Care Teams Zigzag Tunnel Elastic Operator Relationship Specialty Start Date End Date Lucy Elizabeth MD [address] [place] [phone] PCP - General 09/28/08 03/08/21 documented as of this encounter
--- OUTSIDE RECORDS SUMMARY | 2023-10-25 14:41 | XMS_ITS | Encounter Summary ---
Author Organization [facility] Address [address] [place] [address] Care Team Providers Care Busboy Name Role Phone Lucy Elizabeth MD Primary Care Provider [phone] Encounter Details Date Type Department Care Team (Late st Contact Info) Description 01/25/2021 Results Only [facility] [phone] Suyapa Duarte MD [address] [place] [phone] Social History Tobacco Use Types Packs/Day [...] Procedure Name Priority Date/Time Associated Diagnosis Comments LIPID PROFILE (INCLUDES CHOLESTEROL, TRIGLYCERIDES, HDL, LDL) Routine 01/25/2021 15:24 EST documented in this encounter Results * (ABNORMAL) LIPID PROFILE (INCLUDES CHOLESTEROL, TRIGLYCERIDES, HDL, LDL) (01/25/2021 15:24 EST) Cholesterol 140.00 0.00 - 200.00 mg/dL [facility] dHDL 39.00(L) 40.00 - 60.00 mg/dL [facility] Triglycerides 241.00(H) 0.00 - 150.00 mg/dL [facility] 01/25/2021 15:2 4 EST Suyapa Duarte MD CHEMISTRY & BLOOD GA S ORDERABLES Performing Organization Address City/State/[facility] Co de Phone Number [facility] [address] [place], [place] [phone] documented in this encounter Visit Diagnoses Not on filedocumented in this encounter Care Teams Busboy Relationship Specialty Start Date End Date Lucy Elizabeth MD [address] [place] [phone] PCP - General 09/28/08 03/08/21 documented as of this encounter
--- OUTSIDE RECORDS SUMMARY | 2023-10-25 14:41 | XMS_ITS | Encounter Summary ---
Author Organization [facility] Address [address] [place] [address] Care Team Providers Care Manufacturing Manager Name Role Phone Suyapa Duarte MD Primary Care Provider [phone] Reason for Visit * Reason Onset Date Comments Appointment Related 04/13/2021 Encounter Details Date Type Department Care Team (Late st Contact Info) Description 04/13/2021 Telephone [facility] Rehabilitation Therapy [address] [phone] Therapy, Outpatient, Appointment Related Social History Tobacco Use Types [...] encounter Miscellaneous Notes * Telephone Encounter - Namrata Wagner - 04/13/2021 0804 EST Telephone Information for Cancelled Appointments The patient called to cancel their appointment with Neela Carmona PT on 04/14/21 at 1:45 due to no reason The patient cancelled on dottieox Namrata Wagner 04/13/2021 documented in this encounter Plan of Treatment Not on file documented as of this encounter Visit Diagnoses Not on filedocumented in this encounter Care Teams Manufacturing Manager Relationship Specialty Start Date End Date Suyapa Duarte MD [address] [place] [phone] PCP - General Family Medicine - Primary Care 03/09/21 documented as of this encounter
--- OUTSIDE RECORDS SUMMARY | 2023-10-25 14:41 | XMS_ITS | Encounter Summary ---
Author Organization [facility] Address [address] [place] [address] Care Team Providers Care Hair Or Beauty Salon Manager Name Role Phone Lucy Elizabeth MD Primary Care Provider [phone] Encounter Details Date Type Department Care Team (Late st Contact Info) Description 11/11/2019 Results Only [facility] Lab - Main [address] [address] Lucy Elizabeth MD [address] [place] [phone] Social History Tobacco Use Types Packs/Day [...] Comments VIT D, 25-HYDROXY - [facility] Routine 11/11/2019 10:53 EDT MAGNESIUM Routine 11/11/2019 10:53 EDT HEMOGLOBIN A1C Routine 11/11/2019 10:53 EDT VALPROIC ACID LEVEL Routine 11/11/2019 1 0:53 EDT MICROALBUMIN, URINE Routine 11/11/2019 8 :30 EDT documented in this encounter Results * (ABNORMAL) HEMOGLOBIN A1C (11/11/2019 10:53 EDT) Hemoglobin A1c 6.2(H) 4.0 - 6.0 % 11/12/2019 0:09 EDT [facility] Comment: > or =18 years: ??Increased risk for diabetes (prediabetes): 5.7-6.4% Diabetes: > or =6.5% Therapeutic goals for glycemic control (ADA) Adults: - Goal of therapy: <7.0% HbA1c - Action suggested: >8.0% HbA1c Pediatric patients: - Toddlers and preschoolers: <8.5% (but >7.5%) - School age (6-12 years): <8% - Adolescents and young adults (13-19 years): <7.5% Est Avg Glucose 131 mg/dL 0 0:09 EDT [facility] 11/11/2019 10:5 3 EDT 11/11/2019 15:44 EDT Lucy Elizabeth MD CHEMISTRY & BLOOD GA S ORDERABLES [facility] [address] [place] [address] * VIT D, 25-HYDROXY - [facility] (11/11/2019 10:53 EDT) VIT D, 25 HYDROXY - [facility] 88.5 30 - 100 ng/ml 11/11/2019 16:53 EDT [facility] Comment: ? 25-Hydroxy D Total (D2+D3) ?Expected Values Deficient: ?<20 ng/ml Insufficient: ? 20- <30 ng/ml Sufficient: ? 30-100 ng/ml Potential intoxication: >100 ng/ml 11/11/2019 10:5 3 EDT 11/11/2019 15:44 EDT Lucy Elizabeth MD CHEMISTRY & BLOOD GA S ORDERABLES Performing Organization Address [facility] Phone Number [facility] [address] [place] [address] * VALPROIC ACID LEVEL (11/11/2019 10:53 EDT) Valproic Acid 50.0 50 - 100 ug/mL 11/11/2019 16:41 EDT [facility] Comment: Therapeutic Range: 50-100 ug/mL Toxic: ??>120 ug/mL 11/11/2019 10:5 3 EDT 11/11/2019 15:44 EDT Lucy Elizabeth MD CHEMISTRY & BLOOD GA S ORDERABLES Performing Organization Address [facility] Phone Number [facility] [address] [place] [address] * (ABNORMAL) MAGNESIUM (11/11/2019 10:53 EDT) Magnesium 1.60(L) 1.7 - 2.8 mg/dL 11/11/2019 16:41 EDT [facility] 11/11/2019 10:5 3 EDT 11/11/2019 15:44 EDT Lucy Elizabeth MD CHEMISTRY & BLOOD GA S ORDERABLES Performing Organization Address [facility] de Phone Number [facility] [address] [place] [address] * (ABNORMAL) MICROALBUMIN, URINE (11/11/2019 8:30 EDT) Albumin, Urine 4.40(H) <1.7 mg/dL 11/11/2019 17:26 EDT [facility] Urine Albumin to Creatinine Ratio 28.6 ug/mg 11/11/2019 17:26 EDT [facility] Comment: Normal: <30 ug/mg Creat Microalbuminuria: 30-300 ug/mg Creat Clinical albuminuria: >300 ug/mg Creat Creatinine, Urine 153.80 mg/dL 11/11/2019 17:26 EDT [facility] 11/11/2019 8:30 EDT 11/11/2019 16:28 EDT Lucy Elizabeth MD HEMATOLOGY & PF4 ORD ERABLES [facility] [address] [place] [phone] documented in this encounter Visit Diagnoses Not on filedocumented in this encounter Care Teams Hair Or Beauty Salon Manager Relationship Specialty Start Date End Date Lucy Elizabeth MD [address] [place] [phone] PCP - General 09/28/08 03/08/21 documented as of this encounter
--- OUTSIDE RECORDS SUMMARY | 2023-10-25 14:41 | XMS_ITS | Encounter Summary ---
Author Organization [facility] Address [address] [place] [address] Care Team Providers Care Home Care Companion Name Role Phone Lucy Elizabeth MD Primary Care Provider [phone] Reason for Visit * Reason Onset Date Comments Appointment Related 05/21/2019 Encounter Details Date Type Department Care Team (Late st Contact Info) Description 05/21/2019 Telephone [facility] Rehabilitation Therapy - [address] [phone] Therapy, Physical Appointment Related Social History Tobacco [...] Telephone Encounter - Hodan Parker MA - 05/21/2019 1401 EDT Call placed to DadDavid, letting him know that we have secured 06/24 for 1:30 here at RTC with Zev Flores PT and DOMINIQUE Hutchison of [facility] for the wheelchair fitting. Dad will be out of town, possibly so a caregiver would bring Janes. Also, Dad stated that a sister in [place] may be present to take pictures for the family to reference if they are away. I let Dad know that as of today we are allowing only one caregiver per patient into the clinic area. We will do reminder call for appointment with Dad's cell, . Hodan Parker MA 05/21/2019 14:04 documented in this encounter Plan of Treatment Not on file documented as of this encounter Visit Diagnoses Not on filedocumented in this encounter Care Teams Home Care Companion Relationship Specialty Start Date End Date Lucy Elizabeth MD [address] [place] [phone] PCP - General 09/28/08 03/08/21 documented as of this encounter
--- OUTSIDE RECORDS SUMMARY | 2023-10-25 14:41 | XMS_ITS | Encounter Summary ---
Author Organization [facility] Address [address] [place] [address] Care Team Providers Care Numberer And Wirer Name Role Phone Lucy Elizabeth MD Primary Care Provider [phone] Reason for Visit * Reason Onset Date Comments Other 01/09/2019 Encounter Details Date Type Department Care Team (Late st Contact Info) Description 01/09/2019 Telephone [facility] Rehabilitation Therapy - [facility] [address] [place], [place] [phone] Zev Flores, PT [address] [place] [phone] Other Social History Tobacco Use Types Packs/Day [...] encounter Miscellaneous Notes * Telephone Encounter - Zev Flores, PT - 01/09/2019 1357 EST Called David Gooden and reported that I don't need him to sign the addendum. I also informed him I have been in contact with Dr. Melendez about the paperwork for him to sign and return to us. documented in this encounter Plan of Treatment Not on file documented as of this encounter Visit Diagnoses Not on filedocumented in this encounter Care Teams Numberer And Wirer Relationship Specialty Start Date End Date Lucy Elizabeth MD [address] [place] [phone] PCP - General 09/28/08 03/08/21 documented as of this encounter
--- OUTSIDE RECORDS SUMMARY | 2023-10-25 14:41 | XMS_ITS | Encounter Summary ---
Author Organization [facility] Address [address] [place] [address] Care Team Providers Care Adolescent Counselor Name Role Phone Lucy Elizabeth MD Primary Care Provider [phone] Encounter Details Date Type Department Care Team (Late st Contact Info) Description 01/25/2021 Results Only [facility] [phone] Suyapa Duarte MD [address] [place] [phone] Social History Tobacco Use Types Packs/Day [...] Procedure Name Priority Date/Time Associated Diagnosis Comments LDL CHOLESTEROL Routine 01/25/2021 15:24 EST documented in this encounter Results * (ABNORMAL) LDL CHOLESTEROL (01/25/2021 15:24 EST) Calculated LDL 53(L) 60 - 100 mg/dL [facility] 01/25/2021 15:2 4 EST Suyapa Duarte MD HEMATOLOGY & PF4 ORD ERABLES [facility] [address] [place] [address] documented in this encounter Visit Diagnoses Not on filedocumented in this encounter Care Teams Adolescent Counselor Relationship Specialty Start Date End Date Lucy Elizabeth MD [address] [place] [phone] PCP - General 09/28/08 03/08/21 documented as of this encounter
--- OUTSIDE RECORDS SUMMARY | 2023-10-25 14:41 | XMS_ITS | Encounter Summary ---
Author Organization [facility] Address [address] [place] [address] Care Team Providers Care Peer Tutor Name Role Phone Lucy Elizabeth MD Primary Care Provider [phone] Encounter Details Date Type Department Care Team (Latest Contact Info) Description 02/03/2020 15:30 EST Ancillary Procedure [facility] Physical Medicine & Rehabilitation [place] [address] [address] [place] [address] Spasticity Social History Tobacco Use Types Packs/Day [...] as of this encounter Plan of Treatment Pending Results Name Type Priority Associated Diagnoses Date /Time POC US PHYSIATRY GUIDED BOTOX TREATMENT Imaging Routine Spasticity 02/03/2020 15:31 EST documented as of this encounter Visit Diagnoses Diagnosis Spasticity Abnormal involuntary movements documented in this encounter Care Teams Peer Tutor Relationship Specialty Start Date End Date Lucy Elizabeth MD [address] [place] [phone] PCP - General 09/28/08 03/08/21 documented as of this encounter
--- OUTSIDE RECORDS SUMMARY | 2023-10-25 14:41 | XMS_ITS | Encounter Summary ---
Author Organization [facility] Address [address] [place] [address] Care Team Providers Care Fur Weigher Name Role Phone Lucy Elizabeth MD Primary Care Provider [phone] Encounter Details Date Type Department Care Team (Latest Contact Info) Description 06/12/2019 Travel Social History Tobacco Use Types Packs/Day Years Used Date Smoking Tobacco: Former Smokeless Tobacco: Current Sex and Gender Information Value Date Recorded Sex Assigned at Not on file Gender Identity Male 06/12/2019 8:16 EDT Sexual Orientation Not on file COVID-19 Exposure Response Date Recorded In the last month, have you been in contact with someone who was confirmed or suspected to have Coronavirus / COVID-19? No / Unsure 06/12/2019 8:16 EDT documented as of this encounter Functional Status [...] on filedocumented in this encounter Care Teams Fur Weigher Relationship Specialty Start Date End Date Lucy Elizabeth MD [address] [place] [phone] PCP - General 09/28/08 03/08/21 documented as of this encounter
--- OUTSIDE RECORDS SUMMARY | 2023-10-25 14:41 | XMS_ITS | Encounter Summary ---
Author Organization [facility] Address [address] [place] [address] Care Team Providers Care Manager Commercial Name Role Phone Lucy Elizabeth MD Primary Care Provider [phone] Encounter Details Date Type Department Care Team (Late st Contact Info) Description 03/25/2019 Plan of Care Documentation Social History Tobacco Use Types Packs/Day Years [...] as of this encounter Progress Notes * Zev Flores, PT - 03/25/2019 0822 EST Outpatient Rehab Plan of Care Assessment REHABILITATION THERAPIES [facility] REHABILITATION THERAPY - [address] [address] Physical Therapy Addendum Note To Wheelchair Prescription This note is being written for further justification for specific features for power wheelchair. Justification for tilt feature of the chair: patient is at increased risk of developing skin breakdown. He is not able to effectively perform pressure relief due to decreased upper extremity strength, decreased upper extremity range of motion, impaired motor control and upper extremity hypertonicity. He also requires the tilt feature to optimize sitting position after transferring into the wheelchair as he is not able to reposition himself without the tilt feature. The tilt feature is also necessary to manage lower extremity edema to reduce the risk of skin breakdown and infection. Justification for custom cushion: the patient requires a custom seat cushion with appropriate density and thickness of material that provides pressure relief as he is at an increased risk of developing pressure ulcers due to decreased ability to perform pressure relief while seated in the chair. His postural deviations increase the risk of developing ulcers and the contour feature of the cushion will accommodate postural deviations and reduce pressure. The naugahyde cover is required due to intermittent urinary incontinence: this cover will increase the longevity of the cushion and it can be easily cleaned and moisture removed to reduce the risk of skin breakdown and infection. The smooth surface of the naugahyde cover would also facilitate improved sitting position within the chair for optimal posture and position within the chair. A pre-fabricated cushion does not meet these needs. Justification for seat back: the patient requires a curved back in addition to lateral trunk supports secondary to postural deviations of lateral trunk shift and scoliosis so that he can maintain sitting position to effectively operate the power chair and to reduce the risk of skin breakdown. Plan Your signature indicates you approve the therapy goals and plan of care outlined on this document dated 03/25/2019. It also indicates that you agree with the wheelchair prescription/recommendations. Attending Physician Signature Date Zev Flores PT 03/25/2019 8:21 documented in this encounter Plan of Treatment Not on file documented as of this encounter Visit Diagnoses Not on filedocumented in this encounter Care Teams Manager Commercial Relationship Specialty Start Date End Date Lucy Elizabeth MD [address] [place] [phone] PCP - General 09/28/08 03/08/21 documented as of this encounter
--- OUTSIDE RECORDS SUMMARY | 2023-10-25 14:41 | XMS_ITS | Encounter Summary ---
Author Organization [facility] Address [address] [place] [address] Care Team Providers Care Strapping Machine Operator Name Role Phone Lucy Elizabeth MD Primary Care Provider [phone] Suyapa Duarte MD Primary Care Provider [phone] Encounter Details Date Type Department Care Team (Late st Contact Info) Description 01/03/2019 Hospital Encounter [address] [address] Lucy Elizabeth MD [address] [place] [phone] Social History Tobacco Use Types Packs/Day [...] have Coronavirus / COVID-19? No / Unsure 03/09/2021 1:15 EST documented as of this encounter Functional Status [...] on filedocumented in this encounter Care Teams Strapping Machine Operator Relationship Specialty Start Date End Date Lucy Elizabeth MD [address] [place] [phone] PCP - General 09/28/08 03/08/21 Suyapa Duarte MD [address] [place] [phone] PCP - General Family Medicine - Primary Care 03/09/21 documented as of this encounter
--- OUTSIDE RECORDS SUMMARY | 2023-10-25 14:41 | XMS_ITS | Encounter Summary ---
Author Organization [facility] Address [address] [place] [address] Care Team Providers Care Field Mechanic/Site Lead Name Role Phone Lucy Elizabeth MD Primary Care Provider [phone] Reason for Visit * Reason Comments Follow-up Botox Injection * Medication Prior Authorization (Routine) - Specialty Report Received Specialty Diagnoses / Procedures Referred By Rubina perkins Referred To Contact Physical Medicine and Rehab Diagnoses 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HCC-CMS) Cora Foster MD [address] [place] [phone] [facility] [place] [address] Referral ID Status Reason Start Date Expiration Date Visits Requested Visits Authorized [id number] Specialty Report Received Medication Prior Authorization 1 1 1 Encounter Details Date Type Department Care Team (Latest Contact Info) Description 01/21/2021 13:00 EST Procedure visit [facility] Physical Medicine & [place] [address] Cora Foster MD [address] [place] [phone] 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HCC-CMS) ([facility]) (Primary Dx); Acute pain of left shoulder; Neck pain on left side Social History Tobacco Use Types Packs/Day Years [...] Progress Notes * Cora Foster MD - 01/21/2021 1300 EST Physical Medicine and Rehabilitation Clinic Subjective: Patient ID: Janes Gooden is an 50 y.o.. male Chief Complaint Patient presents with ??? Follow-up ??? Botox Injection HPI Pablo returns to review spasticity management for his spastic tetraplegic CP. His last treatment was on 10/26/2020 and he received 300 units to bilateral posterior thigh muscles to diminish his amountof crouching and knee flexion tone that has impacted transfer safety. He comes to appointment today accompanied by his mom. He apparently had some falls in his apartment in the last week that they attributed to him having some left shoulder pain. There was no specific event that started the shoulder pain. But it limits him using his left arm to pull to standing and assisting himself with transfers. Because of that difficulty his parents picked him up and have brought him back to their home for the time being until thesituation can be improved. They hope soon. He has in the past received home health physical therapyfor shoulder problem and done well. It has been sometime since he has had that. They would like to be able to have that reordered if appropriate. Janes feels his legs are getting tighter again and he definitely would feel more comfortable if hecould have the injections done. It makes his stance and transfer more stable. His power chair with joystick on the left side he still manages well independently. He has pain is noted to be more the left side of his neck and then radiating out to his superior shoulder area. Mostly he notices it with sleep or if he goes to use his arm to pull. Patient Active Problem List Diagnosis ??? 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HCC-CMS) ([facility]) No past medical history on file. Past Surgical History: Procedure Laterality Date ??? HIP SURGERY ??? HIP SURGERY ??? SPINE SURGERY alonso rods No family history on file. Social History Socioeconomic History ??? Marital status: Single Spouse name: Not on file ??? Number of children: Not on file ??? Years of education: Not on file ??? Highest education level: Not on file Occupational History ??? Not on file Tobacco Use ??? Smoking status: Never Smoker ??? Smokeless tobacco: Never Used Substance and Sexual Activity ??? Alcohol use: Not on file ??? Drug use: Not on file ??? Sexual activity: Not on file Other Topics Concern ??? Not on file Social History Narrative ??? Not on file Social Determinants of Health Financial Resource Strain: ??? Difficulty of Paying Living Expenses: Not on file Food Insecurity: ??? Worried About Running Out of Food in the Last Year: Not on file ??? Ran Out of Food in the Last Year: Not on file Transportation Needs: ??? Lack of Transportation (Medical): Not on file ??? Lack of Transportation (Non-Medical): Not on file Physical Activity: ??? Days of Exercise per Week: Not on file ??? Minutes of Exercise per Session: Not on file Stress: ??? Feeling of Stress : Not on file Social Connections: ??? Frequency of Communication with Friends and Family: Not on file ??? Frequency of Social Gatherings with Friends and Family: Not on file ??? Attends Scientology Services: Not on file ??? Active Member of Clubs or Organizations: Not on file ??? Attends Club or Organization Meetings: Not on file ??? Marital Status: Not on file Current Outpatient Medications Medication Sig Note Dispense [...] unit injection Inject into the muscle. ??? Kjbldhe-Xpebpusnm-Anwb [id number] mg Tab Take 2 Tabs by [...] cooperative with all aspects of exam and procedure Respirations even and unlabored He has residual contractures of bilateral lower extremities, knees and hips with tight hamstrings. In seated his head is slightly tilted to the right. Muscles that he states are sore and tender to palpation are more on the lateral and posterior left neck from occiput down towards his trapezius. Also some tenderness over the trapezius and then over the AC joint. Passive range of her shoulder doesnot seem to trigger any pain. There are some mild restrictions but all motion can be achieved within his usual functional range of the left shoulder. No redness and no edema noted. Assessment: Janes is a 50-year-old gentleman with spastic tetra paretic cerebral palsy. He has been receiving Botox since 2007 for his lower extremity spasticity that impacts standing stability, transfers. He is experiencing increased tone quality and more discomfort and would like to have that repeated. He is appropriate for repeat injections today. Botox 300 units was injected without complication. Please see separate procedure note. Prior authorization is being requested for 300 units for next planned injection. Reviewed his shoulder pain complaints. Exam mostly consistent with some AC joint area pain and muscular strain to his left-sided neck and upper shoulder area. We discussed working with heat for some relief. I think physical therapy would be very appropriate to help with stretching and look at tactics and strategies for his turning, standing, transfers. Home health is very appropriate for him. We will request services from [facility] health. Although temporarily at his parents home parents will drive him to his apartment for those therapy visits to work with him in his usual home setting help facilitate a return to more independent function. They will be following up with his primary care physician also to follow the shoulder symptoms further. He can determine whether there would be any role of other diagnostics or interventions depending on Janes's response to PT. Plan: Encounter Diagnoses Name Primary? 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HCC-CMS) ([facility]) Yes Med Orders Placed This Visit and Additions to the Medication List Medications ??? botulinum toxin Type A (BOTOX) injection 300 Units No orders of the defined types were placed in this encounter. Future Appointments Date Time Provider Department Center 04/15/2021 14:30 [facility] Portions of this document have been prepared with speech recognition software or keyboard senior database programmer techniques. Minor irregularities or keyboarding misprints may be present. I spent a total of 30 minutes on the date of this encounter meeting with the patient and reviewing documentation/coordinating care as described in the above note. This was separate from any procedures performed at the time of the visit. * Yanick Hopper MA - 01/21/2021 1300 EST ~ [facility] referral faxed to [facility]. YANICK HOPPER MA documented in this encounter Procedure Notes * Cora Foster MD - 01/21/2021 1300 EST Procedure: Procedures After reviewing history [...] if noted () Position: Prone on exam table ?? 10/29/19 02/03/20 04/29/20 ??07/29/2020 01/21/21 Left ? Semimemb ??75 ??75 ??75 75 75 LHBF ??75 ??50 ??50 ??75 75 SH BF ?25 ??25 ?? Right ? Semimem ??75 ??75 ??75 ??75 75 LH BF ??75 ??50 ??50 ??75 75 SH BF ?25 ??25 ?? Total ??300 ??300 ??300 ??300 300 Total botox units injected: 300 Total botox units wasted: 0 Plan: Return to clinic for assessment of Botox efficacy and repeat Botox injections in 3 months. Botox 300 units was injected without complication. Prior authorization is being requested for 300 units for next planned injection. Home health PT referral for left neck and shoulder strain. 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 Acute pain of left shoulder Neck pain on left side Cervicalgia documented in this encounter Administered Medications Inactive Administered Medications - up to 3 most recent administrations Medication Order MAR Action Action Date Dose Rate Site botulinum toxin Type A (BOTOX) injection 300 Units 300 Units, intramuscular, NOW X1, 1 dose, On Sun01/21/21 at 0000, Routine Given 01/21/2021 13:24 EST 300 Units documented in this encounter Care Teams Field Mechanic/Site Lead Relationship Specialty Start Date End Date Lucy Elizabeth MD [address] [place] [phone] PCP - General 09/28/08 03/08/21 documented as of this encounter
--- OUTSIDE RECORDS SUMMARY | 2023-10-25 14:41 | XMS_ITS | Encounter Summary ---
Author Organization [facility] Address [address] [place] [address] Care Team Providers Care Ring Spinner Name Role Phone Lucy Elizabeth MD Primary Care Provider Encounter Details Date Type Department Care Team (Late st Contact Info) Description 06/03/2020 Results Only [facility] - Main [address] [address] Lucy Elizabeth MD [address] [place] [phone] Social History Tobacco Use Types Packs/Day [...] Procedure Name Priority Date/Time Associated Diagnosis Comments URINALYSIS/COMPLETE - [facility] Routine 06/03/2020 15:00 EDT URINE CULTURE IF POSITIVE Routine 06/03/2020 15:00 EDT documented in this encounter Results * URINE CULTURE IF POSITIVE (06/03/2020 15:00 EDT) ESCHERIACHIA COLI - [facility] ESCHERICHIA COLI 06/05/2020 7:36 EDT [facility] COLONY COUNT 10,000-100,000 CFU/ML 06/06/19 7:36 EDT [facility] USUAL UROGENITAL ELENA - [facility] UUV 06/05/2020 7:36 EDT [facility] COLONY COUNT <10,000 CFU/ML 06/05/2020 7:36 EDT [facility] Urine specimen (specimen) 06/03/2020 15:00 EDT 06/03/2020 15:30 EDT Comment:VOID Narrative [facility] - 06/05/2020 7:36 EDT FAX TO [id number] Organism Antibiotic Method Susceptibility Escherichia coli Ampicillin Sulbactam GRAM NEGAT TAIWO SUSCEPTIBILITY - [facility] <=2: Susceptible Escherichia coli Ampicillin GRAM NEGATIVE SUSCEPTIBILITY - [facility] 8: Susceptible Escherichia coli Amoxicillin Clavulan ic acid GRAM NEGATIVE SUSCEPTIBILITY - [facility] 4: Susceptible Escherichia coli Ceftriaxone ([facility] Conversion) GRAM NEGATIVE SUSCEPTIBILITY - [facility] <=1: Susceptible Escherichia coli Cefazolin GRAM NEGATIVE SUSCEPTIBILITY - [facility] <=4: Susceptible Escherichia coli Ciprofloxacin GRAM NEGATIVE SUSCEPTIBILITY - [facility] <=0.25: Susceptible Escherichia coli Cefepime GRAM NEGATIVE SUSCEPTIBILITY - [facility] <=1: Susceptible Escherichia coli Ertapenem GRAM NEGATIVE SUSCEPTIBILITY - [facility] <=0.5: Susceptible Escherichia coli Nitrofurantoin GRAM NEGATIVE SUSCEPTIBILITY - [facility] <=16: Susceptible Escherichia coli Gentamicin GRAM NEGATIVE SUSCEPTIBILITY - [facility] <=1: Susceptible Escherichia coli Levofloxacin GRAM NEGATIVE SUSCEPTIBILITY - [facility] <=0.12: Susceptible Escherichia coli Piperacillin Tazobactam GRAM NE GATIVE SUSCEPTIBILITY - [facility] <=4: Susceptible Escherichia coli Trimethoprim-Sulfame tho xazole GRAM NEGATIVE SUSCEPTIBILITY - [facility] <=20: Susceptible Escherichia coli Tobramycin GRAM NEGATIVE SUSCEPTIBILITY - [facility] <=1: Susceptible Comment:[id number] Lucy Elizabeth MD MICROBIOLOGY - GENER AL ORDERABLES [facility] [address] [place] [address] * URINALYSIS/COMPLETE - [facility] (06/03/2020 15:00 EDT) URINE APPEARANCE - [facility] Cloudy CLEAR 06/03/2020 15:45 EDT [facility] URINE BACTERIA - [facility] FEW 06/03/2020 15:45 EDT [facility] URINE BILIRUBIN - DIPSTICK - [facility] Negative NEGATIVE 06/03/2020 15:45 T [facility] URINE BLOOD - [facility] Trace NEG 06/03/2020 15:45 [facility] URINE COLOR - [facility] Yellow YELLOW [facility] GLU[facility]SE - DIPSTICK - [facility] Negative NEGATIVE 06/03/2020 15:45 EDT [facility] URINE KETONE - [facility] Trace NEGATIVE 06/03/2020 15:45 T [facility] URINE LEUK ESTERASE - [facility] 2+ NEG 06/03/2020 15:45 T [facility] URINE NITRITE - DIPSTICK - [facility] Negative NEG 06/03/2020 15:45 [facility] URINE PH - [facility] 8.0 4.0 - 8.0 15:45 T [facility] URINE PROTEIN - DIPSTICK - [facility] Negative NEG 06/03/2020 15:45 EDT [facility] URINE RBC - [facility] RARE rbc/hpf 06/04/19 15:45 [facility] URCULTIF+? - [facility] Culture Ordered 06/03/2020 15:45 [facility] URINE SPECIFIC GRAVITY - [facility] 1.015 1.001 - 1.035 06/03/2020 15:45 [facility] URINE SQUAMOUS CELLS - [facility] NEG NEG #/hpf 06/03/2020 15:45 [facility] URINE UROBILINOGEN - DIPSTICK - [facility] 0.2 0.2 - 1.0 06/03/2020 15:45 EDT [facility] URINE WBC - [facility] TNTC NEG wbc/hpf 021 15:45 EDT [facility] 06/03/2020 15:0 0 EDT 06/03/2020 15:30 EDT Narrative [facility] - 06/03/2020 15:45 EDT FAX TO [id number] Lucy Elizabeth MD CHEMISTRY & BLOOD GA S ORDERABLES Performing Organization Address City/State/[facility] Co de Phone Number [facility] [address] [place] [address] documented in this encounter Visit Diagnoses Not on filedocumented in this encounter Care Teams Ring Spinner Relationship Specialty Start Date End Date Lucy Elizabeth MD [address] [place] [phone] PCP - General 09/28/08 03/08/21 documented as of this encounter
--- OUTSIDE RECORDS SUMMARY | 2023-10-25 14:41 | XMS_ITS | Encounter Summary ---
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[facility]) Cora Foster MD [address] [place] [phone] Referral ID Status Reason Start Date Expiration Date Visits Requested Visits Authorized [id number] Specialty Report Received Medication Prior Authorization 08/06/2019 1 1 Encounter Details Date Type Department Care Team (Latest Contact Info) Description 10/29/2019 11:30 EDT Procedure visit [facility] Physical Medicine & [place] [address] Cora Foster MD [address] [place] [phone] Spasticity (Primary Dx); Spastic quadriplegic cerebral palsy [...] Progress Notes * Cora Foster MD - 10/29/2019 1130 EDT Subjective: Patient ID: Janes Gooden is an 49 y.o.. male Chief Complaint Patient presents with ??? Follow-up ??? Botox Injection HPI Pablo is here today to proceed with planned botulinum toxin injections. We met in a new patient evaluation on 08/06/2019 to start the process of assuming his care from Dr. Naga Melendez for his spastic quadriplegic CP. Janes states he has been doing well has had no acute medical issues. No updates to medical history, family or social history since his last visit. States he has not had any falls/seen. His last Botox injections were 08/14/2019 where he received Dysport 1000 units distributed evenly through his medial and lateral hamstrings bilaterally. Impact of the injections has been that he is been safer with his transfers and standing and allows for better range of motion. Is his tone increases in his lower extremities is a more risk of falling. He still gets the same amount of assistance in his home through home health aides from [facility]. Every morning he gets assist with breakfast, bathing, dressing and intermittent nursing as needed. Developmental services provide 30 hours/week for appointments cleaning and food support. On the weekends he gets 2 to 3 hours from [place] [facility] [employer] [facility]. This will be his first injections with me at this office. Patient Active Problem List Diagnosis ??? 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[facility]) No past medical history on file. Past Surgical History: Procedure Laterality Date ??? HIP SURGERY ??? HIP SURGERY ??? SPINE SURGERY g[facility] No family history on file. Social History Socioeconomic History ??? Marital status: Single Spouse name: None ??? Number of children: None ??? Years of education: None ??? Highest education level: None Occupational History ??? None Social Needs ??? Financial resource strain: None ??? Food insecurity Worry: None Inability: None ??? Transportation needs Medical: None Non-medical: None Tobacco Use ??? Smoking status: Never Smoker ??? Smokeless tobacco: Never Used Substance and Sexual Activity ??? Alcohol use: None ??? Drug use: None ??? Sexual activity: None Lifestyle ??? Physical activity Days per week: None Minutes per session: None ??? Stress: None Relationships ??? Social connections Talks on phone: None Gets together: None Attends faith service: None Active member of club or organization: None Attends meetings of clubs or organizations: None Relationship status: None ??? Intimate partner violence Fear of current or ex partner: None Emotionally abused: None Physically abused: None Forced sexual activity: None Other Topics Concern ??? None Social History Narrative ??? None ??? acetaminophen (TYLENOL) 325 mg tablet ??? allopurinol (ZYLOPRIM) 100 mg tablet ??? atenolol (TENORMIN) 50 mg tablet ??? botulinum toxin Type A (BOTOX) 100 unit injection ??? Rrujdni-Gbpkxizet-Next 333-133-5 mg Tab ??? celecoxib (CELEBREX) 100 mg capsule ??? diclofenac-misoprostoL (ARTHROTEC 50) 50-200 mg-mcg per tablet ??? divalproex (DEPAKOTE) 500 mg EC tablet ??? ergocalciferol, vitamin D2, (VITAMIN D2 ORAL) ??? levothyroxine (SYNTHROID) 112 mcg tablet ??? lisinopriL (PRINIVIL) 20 mg tablet ??? Magnesium Oxide 84.5 mg (140 mg) capsule ??? METFORMIN HCL (METFORMIN ORAL) ??? OMEGA-3 FATTY ACIDS/FISH OIL (OMEGA 3 FISH OIL ORAL) ??? oxybutynin (DITROPAN XL) 15 mg CR tablet ??? potassium chloride (KLOR-CON) 20 mEq packet ??? simvastatin (ZOCOR) 40 mg tablet ??? triamterene-hydrochlorothiazide (MAXZIDE) 75-50 mg per tablet ??? VITAMIN B COMPLEX (B-50 COMPLEX ORAL) No current facility-administered medications for this visit. Allergies Allergen Reactions ??? Antifungal [Undecylenic Ac-Zinc Undecylena] All oral antifungals ??? Asa [Aspirin] ??? Chocolate Flavor ??? Ibuprofen ??? Lactose Intolerance (Lactase) ??? Naproxen ??? Other - See Comments tuna ??? Salicylates ??? Tomato Diarrhea ROS - See HPI Objective: No data found. There is no height or weight on file to calculate BMI. Physical Exam He is alert and pleasant. He has some mild dysarthria with his speech is understandable and able to convey questions and needs well. He is seated and supported reasonably well in a light weight power wheelchair with joystick on the left armrest. His right upper extremity and left lower extremity are the more involved of his 4 spastic extremities. He is bilateral knee flexion contractures of approximately 30 to 40 degrees from full extension. I can get his knees to flex to about 90 degrees or greater. Ankles can be ranged to 20 degrees of DF. Bilateral knee flexion MAS score 3 Is aware of touch all extremities. Assessment: Pablo is here and medically stable and appropriate to proceed with Botox injections to his bilateral hamstring muscles. We had 400 units prior authorized but will start today with just 300 to see howhe responds to that and how equivalent it is to his prior total dose of 1000 units of Dysport. Gary see him back in about 6 weeks to see how well he has tolerated these doses. For now we will request 400 units for prior authorization as next dose will also depend on his presentation at our next planned Botox injection time 02/05/2020 which was 3 months and 1 week from today. He has no other medical or equipment issues or concerns today. Summary of prior notes from Dr. Melendez: 08/14/19: 1000 DYSP (250 Q hamstring) 05/07/19: 1000 (250 each M/L hamstring B) All prior dates listed with same dose: 02/05/19, 11/06/18, 08/22/18, 04/23/18 10/07/2018: F/U-review of mobility issues, equipment needs. Prescription sent for full new power wheelchair evaluation as his 8-year-old 1 at that time was having malfunction issues. Last injections while at [facility]: 05/10/2016-Botox 400, 200 distributed to each posterior thigh equallythrough M/L hamstrings Plan: Encounter Diagnoses Name Primary? Spasticity Yes ??? 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 Ambulatory Medication Prior Authorization The purpose of this consult request is to inform the scheduling staff that a medication needs to beprior-authorized before it is prescribed and/or administered. Referral Priority: Routine Referral Type: Medication Prior Authorization Referral Reason: Medication Prior Authorization Number of Visits Requested: 1 Future Appointments Date Time Provider Department Center 12/15/2019 14:30 Cora Foster MD [facility] None 02/05/2020 15:45 Cora Foster MD [facility] None Portions of this document have been prepared with speech recognition software or keyboard parts data writer techniques. Minor irregularities or keyboarding misprints may be present. 20 minutes [id number] total time, 15 minutes in discussion / ed. with patient on above issues as delineated in the assessment and plan in addition to Botox procedure. * Cora Pardo RN - 10/29/2019 1130 EDT Botulinum toxin Lot #: [id number] Botulinum toxin expiration date: 05/2022 Botulinum toxin [facility] # 5885-7362-43 Total Botulinum toxin units injected: 300 Total Botulinum toxin units wasted:0 Cora Pardo RN documented in this encounter Procedure Notes * Cora Foster MD - 10/29/2019 1130 EDT After reviewing above history and findings we proceeded with Botulinum Toxin injections as reviewedbelow. Botulinum Toxin Injection Procedure Note Pre-Procedure Diagnosis: Spastic tetraplegia Indications: spasticity that adversely impacts function and hygeine Procedure Details Consent was obtained after discussing [...] needle guidance as follows. EMG guidance is required to confirm muscle location and greatest efficacy of dose. Pts with spasticity need careful localizaton of the most active muscle fascicles. Position: prone on table EMG needle guidance used for all muscles. Previous dose if changed: (*) Last Dysport 08/06/2019: total 1000 ( 250 to each M/L HS) Last Botox 2017: 400 (100 to each hamstring) Long head biceps femoris: Units Right 75 Left 75 B Semimembranosis / 75 units to each side Total botox units injected: 300 Total botox units wasted: 0 Plan: Return to clinic for assessment of Botox efficacy and repeat Botox injections in 3 months. documented in this encounter Plan of Treatment Scheduled Referrals Name Type Priority Associated Diagnoses Orde r Schedule AMB MEDICATION PRIOR AUTHORIZATION Outpatient Referral Routine Spasticity 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HCC-CMS) Ordered: 10/29/2019 documented as of this encounter Visit Diagnoses Diagnosis Spasticity- Primary Abnormal involuntary movements 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HCC-CMS) Congenital quadriplegia documented in this encounter Care Teams Gas Appliance Repairer Relationship Specialty Start Date End Date Lucy Elizabeth MD [address] [place] [phone] PCP - General 09/28/08 03/08/21 documented as of this encounter
--- OUTSIDE RECORDS SUMMARY | 2023-10-25 14:41 | XMS_ITS | Encounter Summary ---
Author Organization [facility] Address [address] [place] [address] Care Team Providers Care Dialysis Chief Equipment Technician Name Role Phone Lucy Elizabeth MD Primary Care Provider Reason for Visit * Reason Onset Date Comments Appointment Related 12/18/2018 Encounter Details Date Type Department Care Team (Late st Contact Info) Description 12/18/2018 Telephone [facility] Rehabilitation Therapy - [address] [phone] Therapy, Physical Appointment Related Social History Tobacco [...] * Telephone Encounter - Hodan Parker - 12/18/2018 1525 EDT I spoke with the patient and reminded them of their wheelchair clinic appointment, to occur tomorrow. Hodan Parker 12/18/2018 15:26 documented in this encounter Plan of Treatment Not on file documented as of this encounter Visit Diagnoses Not on filedocumented in this encounter Care Teams Dialysis Chief Equipment Technician Relationship Specialty Start Date End Date Lucy Elizabeth MD [address] [place] [phone] PCP - General 09/28/08 03/08/21 documented as of this encounter
--- OUTSIDE RECORDS SUMMARY | 2023-10-25 14:41 | XMS_ITS | Encounter Summary ---
Author Organization [facility] Address [address] [place] [address] Care Team Providers Care Hospital Internship Name Role Phone Suyapa Duarte MD Primary Care Provider [phone] Reason for Visit * Reason Onset Date Comments Appointment Related 03/31/2021 Encounter Details Date Type Department Care Team (Late st Contact Info) Description 03/31/2021 Telephone [facility] [place] [facility] Rehabilitation Therapy [address] [phone] Therapy, Outpatient, Appointment Related Social History Tobacco [...] encounter Miscellaneous Notes * Telephone Encounter - Estefani Rivas - 03/31/2021 1629 EST [facility] REHABILITATION THERAPY - [address] [address] Telephone Intake Information for Scheduling NEW Patients for Therapy Script/referral: In EPIC Referral date: 02/17/21 Referring Provider: Cora Foster MD Diagnosis: Spastic quadriplegic cerebral palsy -Eval and treat for decline in function and safety with transfers Welt Rougher needed? No Primary Insurance: [facility] Medicare/Access Medi[employer] AARP-no need to send to [place] Secondary Insurance: [place] Medicaid standard plan- REFERRAL REQUIRED. If Access MediQuip Medicare: Have you been seen in therapy since March of this year? Yes;By whom? Home Health; How many visits have you had since March of this year? Patient's mother was unaware Are you receiving any home health or VNA services? Yes; By which agency? [facility] - CONTACT HOME HEALTH AGENCY FOR APPROVAL Notes: E-mail sent to Rosa Elena Davis @ [facility] on 03/31/21 @ 16:26 Estefani Rivas 03/31/2021 documented in this encounter Plan of Treatment Not on file documented as of this encounter Visit Diagnoses Not on filedocumented in this encounter Care Teams Hospital Internship Relationship Specialty Start Date End Date Suyapa Duarte MD [address] [place] [phone] PCP - General Family Medicine - Primary Care 03/09/21 documented as of this encounter
--- OUTSIDE RECORDS SUMMARY | 2023-10-25 14:41 | XMS_ITS | Encounter Summary ---
Author Organization [facility] Address [address] [place] [address] Care Team Providers Care Pamphlet Distributor Name Role Phone Lucy Elizabeth MD Primary Care Provider [phone] Reason for Visit * Reason Onset Date Comments Appointment Related 07/21/2019 Encounter Details Date Type Department Care Team (Late st Contact Info) Description 07/21/2019 Telephone [facility] Rehabilitation Therapy - [address] [phone] Therapy, Physical Appointment Related Social History Tobacco [...] Telephone Encounter - Hodan Parker MA - 07/21/2019 1320 EDT Mother, Desiree, is calling into the wheelchair clinic and wanting to speak with Yoko Scott, PT, DPT. She states that Janes is having difficulty in his chair and is having shoulder pain. He was seen 06/25/19 by this therapist. Hodan Parker MA 07/21/2019 13:25 documented in this encounter Plan of Treatment Not on file documented as of this encounter Visit Diagnoses Not on filedocumented in this encounter Care Teams Pamphlet Distributor Relationship Specialty Start Date End Date Lucy Elizabeth MD [address] [place] [phone] PCP - General 09/28/08 03/08/21 documented as of this encounter
--- OUTSIDE RECORDS SUMMARY | 2023-10-25 14:41 | XMS_ITS | Encounter Summary ---
Author Organization [facility] Address [address] [place] [address] Care Team Providers Care Case Repairer Name Role Phone Lucy Elizabeth MD Primary Care Provider [phone] Reason for Visit * Reason Comments Follow-up Encounter Details Date Type Department Care Team (Latest Contact Info) Description 12/15/2019 14:30 EDT Office Visit [facility] Physical Medicine & Rehabilitation [place] [address] Cora Foster MD [address] [place] [phone] 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HCC-CMS) [...] Progress Notes * Cora Foster MD - 12/15/2019 1430 EDT Subjective: Patient ID: Janes Gooden is an 49 y.o.. male Chief Complaint Patient presents with ??? Follow-up HPI Janes is here to review his results from the BOTOX 300 units from 10/29/2019 injections to BLE from7 weeks ago. Those were at 11-12 weeks from his prior injections. He is here today with one of his long time caregivers, Ruiz. Janes feels the injections went well. No negative effects. No evidence of increased weakness impacting safety. Ruiz states he feels Janes's status has been stable. No falls. They have noted that the falls may be also be associated with positioning of chair to surface he is transferring to can be more at risk if they are too far apart and Janes is rushing. PT that monitors Janes has observed gains in correcting KF contractures over time of BTX. We have requested that the PT send us some records. As noted previously, he receives home health assistance through the [facility]. Every weekday morning he receives assistance with breakfast, bathing, dressing and then intermittent nursing as needed. Developmental services provide 30 hours/week for appointments, cleaningand food support and then on the weekends he gets 2 to 3 hours/day from independent living services. Further discussion and review with Janes regarding his interests and preferences for care, Botox, ongoing injections. He is fully in agreement with continuing with this treatment regimen. I spent more time educating about the effect of Botox, and its role in decreasing muscle strength so the spasticity is not so overpowering and can allow his extensor muscles to improve his stability and transfers. He is indicating that that was helpful for him and been his caregiver also was able to hear and understand this information and will be able to reinforce that. They have an understanding now for changes to be monitoring for as we approach the next set of Botox injections. Patient Active Problem List Diagnosis ??? 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HCC-CMS) No past medical history on file. Past [...] file Occupational History ??? Not on file Social Needs ??? Financial resource strain: Not on file ??? Food insecurity Worry: Not on file Inability: Not on file ??? Transportation needs Medical: Not on file Non-medical: Not on file Tobacco Use ??? Smoking status: Never Smoker ??? Smokeless tobacco: Never Used Substance and Sexual Activity ??? Alcohol use: Not on file ??? Drug use: Not on file ??? Sexual activity: Not on file Lifestyle ??? Physical activity Days per week: Not on file Minutes per session: Not on file ??? Stress: Not on file Relationships ??? Social connections Talks on phone: Not on file Gets together: Not on file Attends restorationism service: Not on file Active member of club or organization: Not on file Attends meetings of clubs or organizations: Not on file Relationship status: Not on file ??? Intimate partner violence Fear of current or ex partner: Not on file Emotionally abused: Not on file Physically abused: Not on file Forced sexual activity: Not on file Other Topics Concern ??? Not on file Social History Narrative ??? Not on file ??? acetaminophen (TYLENOL) 325 mg tablet ??? allopurinol (ZYLOPRIM) 100 mg tablet ??? atenolol (TENORMIN) 50 mg tablet ??? botulinum toxin Type A (BOTOX) 100 unit injection ??? Asqybvh-Wpxlalxzg-Wbpg 333-133-5 mg Tab ??? celecoxib (CELEBREX) 100 [...] on file to calculate BMI. Physical Exam Alert, cooperative, pleasant Stable baseline dysarthric speech, Stable spastic quadriparesis. Continues with his residual knee flexion contractures. Approximately 30 degrees from full extension. MAS score still relatively high but dynamic reported tone with transfers is less forceful since the Botox. Assessment: Janes is indicating he is very satisfied with his initial response to the botulinum toxin. He is scheduled for his next injections 02/03/2020. We have 400 units prior authorized. If he is maintainingreasonable control of transfers and mobility we may be able to keep him at 300 units moving forwards as he received last injection. If he has gotten tighter and is developing more difficulty with transfers we may need to distributemore than 300 units. Will consider scanning with US to assess the depth and width of hamstring musculature for targetingBotox injections. We will also help to scan and look for areas of his hamstrings that have already received a fair amount of botulinum toxin. Summary of prior notes from Dr. Melendez: 08/14/19: 1000 DYSP (250 Q hamstring) 05/07/19: 1000 (250 each M/L hamstring B) All prior dates listed with same dose: 02/05/19, 11/06/18, 08/22/18, 04/23/18 10/07/2018: F/U-review of mobility issues, equipment needs. Prescription sent for full new power wheelchair evaluation as his 8-year-old W/C at that time was having malfunction issues. Last injections while at [facility]: 05/10/2016-Botox 400, 200 distributed to each post. Thigh equally through M/L HS [facility] first dose 01/2008 Plan: Encounter Diagnoses Name Primary? 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HCC-CMS) Yes No orders of the defined types were placed in this encounter. Future Appointments Date Time Provider Department Center 02/03/2020 15:30 Cora Foster MD [facility] None Portions of this document have been prepared with speech recognition software or keyboard data conversion developer techniques. Minor irregularities or keyboarding misprints may be present. 25 minutes total time [id number], 15 minutes in discussion / ed. with patient on above issues as delineated in the assessment and plan documented in this encounter Plan of Treatment Not on file documented as of this encounter Visit Diagnoses Diagnosis 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HCC-CMS)- Primary Congenital quadriplegia documented in this encounter Care Teams Case Repairer Relationship Specialty Start Date End Date Lucy Elizabeth MD [address] [place] [phone] PCP - General 09/28/08 03/08/21 documented as of this encounter
--- OUTSIDE RECORDS SUMMARY | 2023-10-25 14:41 | XMS_ITS | Encounter Summary ---
Author Organization [facility] Address [address] [place] [address] Care Team Providers Care Seismic Interpreter Name Role Phone Lucy Elizabeth MD Primary Care Provider [phone] Reason for Visit * Reason Onset Date Comments Appointment Related 03/26/2019 Encounter Details Date Type Department Care Team (Late st Contact Info) Description 03/26/2019 Telephone [facility] Rehabilitation Therapy - [address] [phone] Therapy, Physical Appointment Related Social History Tobacco [...] Telephone Encounter - Hodan Parker MA - 03/26/2019 1348 EST Desiree, from Dr. Melendez is asking that we fax the PT Addendum Note to the wheelchair prescription,dated 03/25/2019 written by Zev Flores PT to them. This note has been sent electronically and we asked that an electronic signature from please be sent back to [facility] wheelchair clinic. Hodan Parker MA 03/26/2019 13:49 documented in this encounter Plan of Treatment Not on file documented as of this encounter Visit Diagnoses Not on filedocumented in this encounter Care Teams Seismic Interpreter Relationship Specialty Start Date End Date Lucy Elizabeth MD [address] [place] [phone] PCP - General 09/28/08 03/08/21 documented as of this encounter
--- OUTSIDE RECORDS SUMMARY | 2023-10-25 14:41 | XMS_ITS | Encounter Summary ---
Author Organization [facility] Address [address] [place] [address] Care Team Providers Care Reverser Name Role Phone Lucy Elizabeth MD Primary Care Provider [phone] Suyapa Duarte MD Primary Care Provider [phone] Encounter Details Date Type Department Care Team (Latest Contact Info) Description 01/25/2021 Lab Requisition [facility] [place] [address] [place] [id number] Suyapa Duarte MD [address] [place] [phone] Unspecified convulsions (HCC-CMS) (HCC) (HCC-CMS); Type 2 diabetes mellitus without complications (HCC-CMS) (HCC) (HCC-CMS); Gout, unspecified Social History Tobacco Use Types Packs/Day Years [...] Procedure Name Priority Date/Time Associated Diagnosis Comments URINE [id number] INE RATIO (ACR) Today 01/25/2021 15:38 EST Unspecified convulsions (HCC-CMS) (HCC) Type 2 diabetes mellitus without complications (HCC-CMS) (HCC) Gout, unspecified URIC ACID Today 01/25/2021 15:38 EST Unspecified convulsions (HCC-CMS) (HCC) Type 2 diabetes mellitus without complications (HCC-CMS) (HCC) VALPROIC ACID LEVEL Today 01/25/2021 15:38 EST Unspecified convulsions (HCC-CMS) (HCC) Type 2 diabetes mellitus without complications (HCC-CMS) (HCC) documented in this encounter Results * URINE [id number]-XG-[id number] RATIO (ACR) (01/25/2021 15:38 EST) Albumin, Urine 0.9 See Note mg/dL 2020 19:10 [facility] Comment: NOTE: Reference range not established Creatinine, Urine 137.7 See Note mg/dL 01/25/2021 19:10 [facility] Comment: NOTE: Reference range not established Lab Urine Albumin to Creatinine Ratio 7 <30 ??g/mg Creatinine 01/25/2021 19:10 [facility] Comment: Urine Albumin/Creatinine Ratio: Normal: <30 ug/mg Creatinine Moderately increased albuminuria: 30-300 ug/mg Creatinine Severley increased albuminuria: >300 ug/mg Creatinine Urine URINE SPECIMEN COLLECTION, CLEAN CATCH / Unknown 01/25/2021 15:38 EST 01/25/2021 18:16 EST Suyapa Duarte MD CHEMISTRY & BLOOD GA S ORDERABLES [facility] [address] [place] [address] * URIC ACID (01/25/2021 15:38 EST) Uric Acid 5.7 3.9 - 9.0 mg/dL 01/25/2021 19:40 EST [facility] Blood VENOUS BLOOD / Unknown 01/25/2021 15:38 EST 01/25/2021 18:16 EST Suyapa Duarte MD CHEMISTRY & BLOOD GA S ORDERABLES Performing Organization Address City/[facility]/ZIP Co de Phone Number [facility] [address] [place] [phone] * (ABNORMAL) VALPROIC ACID LEVEL (01/25/2021 15:38 EST) Valproic Acid 48(L) 50 - 100 ug/mL 01/25/2021 19:40 EST [facility] Blood VENOUS BLOOD / Unknown 01/25/2021 15:38 EST 01/25/2021 18:16 EST Suyapa Duarte MD CHEMISTRY & BLOOD GA S ORDERABLES Performing Organization Address City/[facility] Co de Phone Number [facility] [address] [place] [address] documented in this encounter Visit Diagnoses Diagnosis Unspecified convulsions (HCC-CMS) Type 2 diabetes mellitus without complications (HCC-CMS) Type II or unspecified type diabetes mellitus without mention of complication, not stated as uncontrolled Gout, unspecified documented in this encounter Care Teams Reverser Relationship Specialty Start Date End Date Lucy Elizabeth MD [address] [place] [phone] PCP - General 09/28/08 03/08/21 Suyapa Duarte MD [address] [place] [phone] PCP - General Family Medicine - Primary Care 03/09/21 documented as of this encounter
--- OUTSIDE RECORDS SUMMARY | 2023-10-25 14:41 | XMS_ITS | Encounter Summary ---
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[facility]) Cora Foster MD [address] [place] [phone] [facility] [address] [place] [address] [place] [address] Referral ID Status Reason Start Date Expiration Date Visits Requested Visits Authorized [id number] Specialty Report Received Medication Prior Authorization 1 1 1 Question Answer Medication to be Prior Authorized: Botox A 300 units Comments The purpose of this consult request is to inform the scheduling staff that a medication needs to be prior-authorized before it is prescribed and/or administered. 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[facility]) Cora Foster MD [address] [place] [phone] [facility] [address] [place] [address] Referral ID Status Reason Start Date Expiration Date Visits Requested Visits Authorized [id number] Specialty Report Received Medication Prior Authorization 0 1 1 Encounter Details Date Type Department Care Team (Latest Contact Info) Description 04/29/2020 13:30 EST Procedure visit [facility] Physical Medicine & Rehabilitation - [place] [address] [place] [address] Cora Foster MD [address] [place] [phone] 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HCC-CMS) [...] Progress Notes * Cora Foster MD - 04/29/2020 1330 EST Subjective: Patient ID: Janes Gooden is an 49 y.o.. male Chief Complaint Patient presents with ??? Follow-up ??? Botox Injection HPI Janes is a 49-year-old gentleman with spastic quadriparetic cerebral palsy who is here to review his response to his last Botox injections that were on 02/02/2022 bilateral medial and lateral hamstring groups for a total of 300 units. He is accompanied today by his mom. He states his been doing well. He has been safe. He has not had any falls. His transfers have been moving along well and reasonably safely. He does feel like his legs are getting tighter and does very much want to have the Botox repeated. Patient Active Problem List Diagnosis ??? 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[facility]) No past medical history on file. Past [...] file Gets together: Not on file Attends hinduism service: Not on file Active member of [...] Social History Narrative ??? Not on file Current Outpatient Medications Medication [...] unit injection Inject into the muscle. ??? Pyuixet-Llzpaohuf-Hbpd 333-133-5 mg Tab Take 2 Tabs by [...] to calculate BMI. Physical Exam Alert and cooperative Speech has baseline dysarthria In his power wheelchair and wheezing supported in a seated position. Transfers with coming to standing position and crouched leg position with utilization of chair armrest in bed for stand step transferring. He has residual hip and knee flexion contractures. Contractures relatively stable from last visit with hip flexion approximately 20 degrees and knee flexors 25-30 degrees. Difficult for him to initiate isolated lower extremity motion. Has synergistic leg flexion of a small amount of range. Has a strong startle response. MAS score of knee flexors end of range 3+ Assessment: Janes is now 12 weeks out from his last Botox dose and noting increasing tone. As his legs get tighter he starts to get more unstable and require more assistance with his transfers. Botulinum toxin injections repeated for a total of 300 units divided between bilateral hamstring muscles. Please see separate procedure note. Plan for repeat injections in 12 weeks. Request prior authorization for 300 units. Will determine if in the next set of injections if we might start to gradually decrease some of theBotox dose. Plan for utilization of 2 inch EMG needle (blue) Plan: Encounter Diagnoses Name Primary? 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 Ambulatory Medication Prior Authorization The purpose of this consult request is to inform the scheduling staff that a medication needs to beprior-authorized before it is prescribed and/or administered. Referral Priority: Routine Referral Type: Medication Prior Authorization Referral Reason: Medication Prior Authorization Number of Visits Requested: 1 Future Appointments Date Time Provider Department Center 07/22/2020 13:[address] [facility] None Portions of this document have been prepared with speech recognition software or keyboard database programmer techniques. Minor irregularities or keyboarding misprints may be present. I spent a total of 15 minutes on the date of this encounter meeting with the patient and reviewing documentation/coordinating care as described in the above note. This was separate from any procedures performed at the time of the visit. documented in this encounter Procedure Notes * Cora Foster MD - 04/29/2020 1330 EST Procedure: Procedures After reviewing above history and findings we proceeded with Botulinum Toxin injections as reviewedbelow. Botulinum Toxin Injection Procedure Note Pre-Procedure Diagnosis: Spastic tetraplegia Indications: spasticity that adversely impacts function and Transfers Procedure Details Consent was obtained after discussing [...] and thus more receptive to further Botox. Position: Prone on table, use ethyl chloride EMG needle guidance used for all muscles. In addition, US guidance used in combination with EMG needle guidance at muscles as documented below. Images saved in short axis view if noted () 10/29/19 02/03/20 04/29/20 Left Semimemb 75 75 75 LHBF 75 50 50 SH BF 25 25 Right Semimem 75 75 75 LH BF 75 50 50 SH BF 25 25 Total 300 300 300 Total botox units injected: 300 Total botox units wasted: 0 Plan: Return to clinic for assessment of Botox efficacy and repeat Botox injections in 3 months. Future Appointments Date Time Provider Department Center 07/22/2020 13:00 [facility] Consider slight decrease to dosing next visit depending on timing of his next follow-up. documented in this encounter Plan of Treatment Scheduled Referrals Name Type Priority Associated Diagnoses Orde r Schedule AMB MEDICATION PRIOR AUTHORIZATION Outpatient Referral Routine 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HCC-CMS) Ordered: 04/29/2020 documented as of this encounter Visit Diagnoses Diagnosis 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HCC-CMS)- Primary Congenital quadriplegia documented in this encounter Administered Medications Inactive Administered Medications - up to 3 most recent administrations Medication Order MAR Action Action Date Dose Rate Site botulinum toxin Type A (BOTOX) injection 300 Units 300 Units, intramuscular, NOW X1, 1 dose, On Marie 04/29/20 at 0000, Routine Given 04/29/2020 14:49 EST 300 Units documented in this encounter Care Teams Threading Machine Feeder Automatic Relationship Specialty Start Date End Date Lucy Elizabeth MD [address] [place] [phone] PCP - General 09/28/08 03/08/21 documented as of this encounter
--- OUTSIDE RECORDS SUMMARY | 2023-10-25 14:41 | XMS_ITS | Encounter Summary ---
Author Organization [facility] Address [address] [place] [address] Care Team Providers Care Wellness Ambassador Name Role Phone Lucy Elizabeth MD Primary Care Provider [phone] Encounter Details Date Type Department Care Team (Late st Contact Info) Description 01/25/[address] [facility] [phone] Suyapa Duarte MD [address] [place] [phone] Social History Tobacco Use Types Packs/Day [...] Associated Diagnosis Comments VITAMIN D (25,OH) Routine 01/25/2021 15: 24 EST documented in this encounter Results * VITAMIN D (25,OH) (01/25/2021 15:24 EST) Vitamin D 63 30 - 100 ng/ml [facility] 01/25/2021 15:2 4 EST Suyapa Duarte MD CHEMISTRY & BLOOD GA S ORDERABLES Performing Organization Address City/State/[facility] Co de Phone Number [facility] [address] [place] [address] documented in this encounter Visit Diagnoses Not on filedocumented in this encounter Care Teams Wellness Ambassador Relationship Specialty Start Date End Date Lucy Elizabeth MD [address] [place] [phone] PCP - General 09/28/08 03/08/21 documented as of this encounter
--- OUTSIDE RECORDS SUMMARY | 2023-10-25 14:41 | XMS_ITS | Encounter Summary ---
Author Organization [facility] Address [address] [place] [address] Care Team Providers Care Railroad Dispatcher Name Role Phone Lucy Elizabeth MD Primary Care Provider [phone] Encounter Details Date Type Department Care Team (Late st Contact Info) Description 06/25/2019 Plan of Care Documentation Social History Tobacco [...] Progress Notes * Yoko Scott, PT - 06/25/2019 6006 EDT Outpatient Rehab Plan of Care Assessment : Janes received his new power chair and seating system today which accommodates his fixed spinal deformity yet keeps him from leaning to one side. He sat well in the new seating system and was safe and independent propelling the chair. The cushion was rather high, but he was able to transfer into it and get himself all the way back. It was not contoured as prescribed, but he seemed satisfied with the comfort. Alf Goals: met ?? Patient independent with functions of new power wheelchair for access to his home and community for appointments. P: Discontinue Wheelchair Clinic Physical therapy. Plan ATTENDING PHYSICIAN: Medicare certification needed. Your signature indicates you approve the therapy goals and plan of care outlined on this document dated 06/25/2019. Thank you! Attending Physician Signature Date Yoko Scott, PT 06/25/2019 15:37 documented in this encounter Plan of Treatment Not on file documented as of this encounter Visit Diagnoses Not on filedocumented in this encounter Care Teams Railroad Dispatcher Relationship Specialty Start Date End Date Lucy Elizabeth MD [address] [place] [phone] PCP - General 09/28/08 03/08/21 documented as of this encounter
--- OUTSIDE RECORDS SUMMARY | 2023-10-25 14:41 | XMS_ITS | Encounter Summary ---
Author Organization [facility] Address [address] [place] [address] Care Team Providers Care Front Desk Auxiliary Name Role Phone Lucy Elizabeth MD Primary Care Provider [phone] Encounter Details Date Type Department Care Team (Latest Contact Info) Description 11/27/2018 8:40 EDT - 11/28/2018 23:59 EDT Hospital Encounter [address] [address] Lucy Elizabeth MD [address] [place] [phone] Discharge Disposition: Home or Self Care [...] 100 unit injection Inject into the muscle. Lealghj-Ueqmocbyv-Kqhs 333-133-5 mg Tab Take 2 Tabs by [...] on filedocumented in this encounter Care Teams Front Desk Auxiliary Relationship Specialty Start Date End Date Lucy Elizabeth MD [address] [place] [phone] PCP - General 09/28/08 03/08/21 documented as of this encounter
--- OUTSIDE RECORDS SUMMARY | 2023-10-25 14:41 | XMS_ITS | Encounter Summary ---
Author Organization [facility] Address [address] [place] [address] Care Team Providers Care Automatic Seamer Name Role Phone Lucy Elizabeth MD Primary Care Provider [phone] Reason for Visit * Reason Onset Date Comments Other 01/03/2019 Encounter Details Date Type Department Care Team (Late st Contact Info) Description 01/03/2019 Telephone [facility] [address] [place], [place] [phone] Zev Flores, PT [address] [place] [phone] Other Social History Tobacco Use [...] Telephone Encounter - Zev Flores, PT - 01/03/2019 1612 EDT Contacted patient's guardian, David Gooden and reviewed the Medicaid Addendum. Will send the form to Mr. Gooden to review and sign and to return to our office. documented in this encounter Plan of Treatment Not on file documented as of this encounter Visit Diagnoses Not on filedocumented in this encounter Care Teams Automatic Seamer Relationship Specialty Start Date End Date Lucy Elizabeth MD [address] [place] [phone] PCP - General 09/28/08 03/08/21 documented as of this encounter
--- OUTSIDE RECORDS SUMMARY | 2023-10-25 14:41 | XMS_ITS | Encounter Summary ---
Author Organization [facility] Address [address] [place] [address] Care Team Providers Care Petroleum Laboratory Technician Name Role Phone Lucy Elizabeth MD Primary Care Provider [phone] Encounter Details Date Type Department Care Team (Late st Contact Info) Description 05/27/2018 Historical Results Only [facility] - [facility] - Main [address] [address] Amirah Vila PA [address] [place], [place] Social History Tobacco Use Types Packs/Day Years [...] Procedure Name Priority Date/Time Associated Diagnosis Comments PTH INTACT Routine 05/27/2018 14:00 EDT PHOSPHORUS Routine 05/27/2018 14:00 EDT VALPROIC ACID LEVEL Routine 05/27/2018 1 4:00 EDT FREE T3 POC - CV Routine 05/27/2018 11 :46 EDT LIPID PANEL POC - [facility] Routine 9 11:46 EDT COMPREHENSIVE METABOLIC POC - CV Routine 05/27/2018 11:46 EDT FREE T4 POC - CV Routine 05/27/2018 11 :46 EDT THYROID STIM HORMONE POC - CV Routine 05/27/2018 11:46 EDT MAGNESIUM POC - [facility] Routine 05/27/2018 11:46 EDT CBC W/PLT & DIFF,POINT OF CARE - [facility] Routine 05/27/2018 11:46 EDT POCT CHOLESTEROL LDL ([facility]) Routine 05/27/2018 11:46 EDT documented in this encounter Results * VALPROIC ACID LEVEL (05/27/2018 14:00 EDT) [facility] Valproic Acid 79.7 50 - 100 ug/mL 05/27/2018 19:[address] [facility] Comment: Therapeutic Range: 50-100 ug/mL Toxic: ??>120 ug/mL 05/27/2018 14:0 0 EDT 05/27/2018 18:[address] [facility] - 05/27/2018 19:10 EDT Does PT Have a Latex Allergy? NO Amirah KING CHEMISTRY & BLOOD GA S ORDERABLES [facility] * PHOSPHORUS (05/27/2018 14:00 EDT) [facility] PHOSPHOROUS - [facility] 3.8 2.5 - 4.5 mg/dL 05/27/2018 19:[address] [facility] 05/27/2018 14:0 0 EDT 05/27/2018 18:[address] [facility] - 05/27/2018 19:05 EDT Does PT Have a Latex Allergy? NO Amirah KING CHEMISTRY & BLOOD GA S ORDERABLES [facility] * PTH INTACT (05/27/2018 14:00 EDT) PTH INTACT ([facility]) - [facility] 42 19 - 88 pg/ml 05/28/2018 14:[address] [facility] Comment: Reference range based on normal calcium level. Test performed [place] [id number] 05/27/2018 14:0 0 EDT 05/27/2018 18:[address] [facility] - 05/28/2018 14:27 EDT Does PT Have a Latex Allergy? NO Amirah KING CHEMISTRY & BLOOD GA S ORDERABLES [facility] * THYROID STIM HORMONE POC - [facility] (05/27/2018 11:46 EDT) THYROID STIM HORMONE - [facility] 2.28 0.45 - 5.33 UIU/ML 05/28/2018 11:[address] [facility] 05/27/2018 11:4 6 EDT 05/27/2018 11:46 EDT Amirah KING CHEMISTRY & BLOOD GA S ORDERABLES [facility] * MAGNESIUM POC - [facility] (05/27/2018 11:46 EDT) Magnesium 2.00 1.60 - 2.30 MG/DL 05/28/2018 11:[address] [facility] 05/27/2018 11:4 6 EDT 05/27/2018 11:46 EDT Amirah KING CHEMISTRY & BLOOD GA S ORDERABLES [facility] * (ABNORMAL) LIPID PANEL POC - CV (05/27/2018 11:46 EDT) Triglyceride 364(H) 0.00 - 150.00 MG/DL 05/28/2018 11:[address] [facility] Cholesterol 161 0.00 - 200.00 MG/DL 05/28/2018 11:[address] [facility] HDL 36(L) 40.00 - 60.00 MG/DL 05/28/2018 11:[address] [facility] 05/27/2018 11:4 6 EDT 05/27/2018 11:46 EDT Amirah KING CHEMISTRY & BLOOD GA S ORDERABLES Performing Organization Address City/[facility]/ZIP Co de Phone Number [facility] * (ABNORMAL) POCT CHOLESTEROL LDL ([facility]) (05/27/2018 11:46 EDT) LDL CHOLESTEROL - CV 52(L) 60 - 100 MG/DL 05/28/2018 11:[address] [facility] 05/27/2018 11:4 6 EDT 05/27/2018 11:46 EDT Amirah KING POINT OF CARE TEST O RDERABLES [facility] * FREE T4 POC - CV (05/27/2018 11:46 EDT) FREE T4 - CV 1.07 0.58 - 1.64 NG/DL 05/28/2018 11:[address] [facility] 05/27/2018 11:4 6 EDT 05/27/2018 11:46 EDT Amirah KING CHEMISTRY & BLOOD GA S ORDERABLES [facility] * FREE T3 POC - [facility] (05/27/2018 11:46 EDT) T3,FREE [facility] 3.88 2.40 - 4.00 PG/ML 05/28/2018 11:[address] [facility] 05/27/2018 11:4 6 EDT 05/27/2018 11:46 EDT Amirah KING CHEMISTRY & BLOOD GA S ORDERABLES [facility] * (ABNORMAL) COMPREHENSIVE METABOLIC POC - [facility] (05/27/2018 11:46 EDT) Albumin % 4.6 3.50 - 5.00 G/DL 05/28/2018 11:47 [facility] ALKALINE PHOSPHATASE - [facility] 68 38.00 - 126.00 U/L 05/28/2018 11:47 [facility] BILIRUBIN TOTAL 0.4 0.20 - 1.30 MG/DL 05/28/2018 11:47 [facility] BUN - [facility] 21(H) 7.00 - 20.00 MG/DL 05/28/2018 11:47 [facility] CALCIUM - [facility] 10.8(H) 8.50 - 10.50 MG/DL 05/28/2018 11:47 [facility] Chloride 101 98.00 - 107.00 MMOL/L 05/28/2018 11:47 [facility] CO2 Total 27 22.00 - 30.00 MMOL/L 05/28/2018 11:47 [facility] CREATININE 0.9 0.70 - 1.50 MG/DL 05/28/2018 11:47 [facility] Anion Gap 12 7 - 17 MMOL/L 05/28/2018 11:47 [facility] GLUCOSE - [facility] 201(H) 70.00 - 100.00 MG/DL 05/28/2018 11:47 [facility] Potassium 4.1 3.50 - 5.10 MMOL/L 05/28/2018 11:47 [facility] Sodium 140 137.00 - 145.00 MMOL/L 05/28/2018 11:47 [facility] TOTAL PROTEIN - [facility] 7.5 6.30 - 8.20 G/DL 05/28/2018 11:47 [facility] SGOT/AST - [facility] 30 15.00 - 46.00 U/L 05/28/2018 11:47 [facility] SGPT/ALT - [facility] 33 13.00 - 69.00 U/L 05/28/2018 11:47 [facility] 05/27/2018 11:4 6 EDT 05/27/2018 11:46 EDT Amirah KING CHEMISTRY & BLOOD GA S ORDERABLES [facility] * (ABNORMAL) CBC W/PLT & DIFF,POINT OF CARE - [facility] (05/27/2018 11:46 EDT) Gran # 5.6 1.4 - 6.5 X10E3/UL 05/28/2018 11:[address] [facility] GRAN % - [facility] 60.5 42.2 - 75.2 % 05/28/2018 11:47 [facility] HEMATOCRIT - [facility] 54.5 35.0 - 60.0 % 05/28/2018 11:47 [facility] HEMOGLOBIN - [facility] 17.2 11.0 - 18.0 G/DL 05/28/2018 11:47 [facility] LYMPH # - [facility] 3.4 1.2 - 3.4 X10E3/UL 05/28/2018 11:47 [facility] LYMPH% - [facility] 36.6 20.5 - 51.1 % 05/28/2018 11:47 [facility] MEAN CORPUSCULAR HGB - [facility] 28.5 27.0 - 31.0 PG 05/28/2018 11:47 [facility] MEAN CORPUSCULAR HGB CONC - [facility] 31.5(L) 33.0 - 37.0 G/DL 05/28/2018 11:47 [facility] MEAN CELL VOLUME - [facility] 90.4 80.0 - 99.9 FL 05/28/2018 11:47 [facility] MONO # - [facility] 0.3 0.1 - 0.6 X10E3/UL 05/28/2018 11:47 [facility] MONO% - [facility] 2.9 1.7 - 9.3 % 05/28/2018 11:47 [facility] MEAN PLATELET VOLUME - [facility] 9.6 7.8 - 11.0 FL 05/28/2018 11:47 [facility] PLATELET COUNT 195 150 - 450 X10E3/UL 05/28/2018 11:47 [facility] RED BLOOD COUNT - [facility] 6.03(H) 4.00 - 6.00 X10E6/UL 05/28/2018 11:47 [facility] RED CELL DISTRI WIDTH - [facility] 14.6(H) 11.6 - 13.7 % 05/28/2018 11:47 [facility] WHITE BLOOD COUNT - [facility] 9.3 4.5 - 10.5 X10E3/UL 05/28/2018 11:47 [facility] 05/27/2018 11:4 6 EDT 05/27/2018 11:46 EDT Amirah KING CHEMISTRY & BLOOD GA S ORDERABLES [facility] documented in this encounter Visit Diagnoses Not on filedocumented in this encounter Care Teams Petroleum Laboratory Technician Relationship Specialty Start Date End Date Lucy Elizabeth MD [address] [place] [phone] PCP - General 09/28/08 03/08/21 documented as of this encounter
--- OUTSIDE RECORDS SUMMARY | 2023-10-25 14:41 | XMS_ITS | Encounter Summary ---
Author Organization [facility] Address [address] [place] [address] Care Team Providers Care Teacher'S Aide Name Role Phone Lucy Elizabeth MD Primary Care Provider [phone] Encounter Details Date Type Department Care Team (Late st Contact Info) Description 01/25/2021 Results Only [facility] [phone] Suyapa Duarte MD [address] [place] [phone] Social History Tobacco Use Types Packs/Day [...] Date/Time Associated Diagnosis Comments HEMOGLOBIN A1C Routine 01/25/2021 15:24 EST documented in this encounter Results * (ABNORMAL) HEMOGLOBIN A1C (01/25/2021 15:24 EST) HgB A1C% 6.1(H) 4.0 - 6.0 % [facility] Average Calculated 123(H) 60 - 115 mg/dL [facility] 01/25/2021 15:2 4 EST Suyapa Duarte MD CHEMISTRY & BLOOD GA S ORDERABLES Performing Organization Address City/State/[facility] Co de Phone Number [facility] [address] [place] [address] documented in this encounter Visit Diagnoses Not on filedocumented in this encounter Care Teams Teacher'S Aide Relationship Specialty Start Date End Date Lucy Elizabeth MD [address] [place] [phone] PCP - General 09/28/08 03/08/21 documented as of this encounter
--- OUTSIDE RECORDS SUMMARY | 2023-10-25 14:41 | XMS_ITS | Encounter Summary ---
Author Organization [facility] Address [address] [place] [address] Care Team Providers Care Reservoir Engineering Manager Name Role Phone Lucy Elizabeth MD Primary Care Provider Encounter Details Date Type Department Care Team (Late st Contact Info) Description 01/25/2021 Results Only [facility] [phone] Suyapa Duarte MD [address] [place] [phone] Social History Tobacco Use Types Packs/Day [...] Procedure Name Priority Date/Time Associated Diagnosis Comments COMPREHENSIVE METABOLIC PANEL (CMP) Routine 01/25/2021 15:24 EST documented in this encounter Results * (ABNORMAL) COMPREHENSIVE METABOLIC PANEL (CMP) (01/25/2021 15:24 EST) Glucose 150.00(H) 70.00 - 100.00 mg/dL [facility] Bun 26.00(H) 7.00 - 20.00 mg/dL [facility] Creatinine 1.10 0.70 - 1.50 mg/dL [facility] Estimated GFR >60 [facility] Comment: Chronic renal impairment is defined as GFR <60 Multiply result by 1.210 for patients eGFR calculated using the IDMS-traceable MDRD study Sodium 142.00 137.00 - 145.00 mmol/L [facility] Potassium 4.30 3.50 - 5.10 mmol/L [facility] Chloride 107.00 98.00 - 107.00 mmol/L [facility] Carbon Dioxide 26.00 22.00 - 30.00 mmol/L [facility] Calcium 10.40 8.50 - 10.50 mg/dL [facility] Anion Gap 9 7 - 17 mmol/L [facility] Total Protein 7.40 6.30 - 8.20 g/dL [facility] Albumin 4.60 3.50 - 5.00 g/dL [facility] Total Bilirubin 0.30 0.20 - 1.30 mg/dL [facility] AST/SGOT 31.00 15.00 - 46.00 U/L [facility] ALT/SGPT 26.00 0.00 - 50.00 U/L [facility] ALK 79.00 38.00 - 126.00 U/L [facility] 01/25/2021 15:2 4 EST Suyapa Duarte MD CHEMISTRY & BLOOD GA S ORDERABLES [facility] [address] [place] [address] documented in this encounter Visit Diagnoses Not on filedocumented in this encounter Care Teams Reservoir Engineering Manager Relationship Specialty Start Date End Date Lucy Elizabeth MD [address] [place] [phone] PCP - General 09/28/08 03/08/21 documented as of this encounter
--- OUTSIDE RECORDS SUMMARY | 2023-10-25 14:41 | XMS_ITS | Encounter Summary ---
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[facility]) Cora Foster MD [address] [place] [phone] [facility] [address] [place] [address] [place] [address] Referral ID Status Reason Start Date Expiration Date Visits Requested Visits Authorized [id number] Specialty Report Received Medication Prior Authorization 1 [...] and Rehab Diagnoses 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[facility]) Cora Foster MD [address] [place] [phone] [facility] [address] [place] [address] Referral ID Status Reason Start Date Expiration Date Visits Requested Visits Authorized [id number] Specialty Report Received Medication Prior Authorization 1 1 1 Encounter Details Date Type Department Care Team (Latest Contact Info) Description 10/26/2020 13:00 EDT Procedure visit [facility] Physical Medicine & Rehabilitation [place] [address] Cora Foster MD [address] [place] [phone] 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HCC-CMS) [...] Progress Notes * Cora Foster MD - 10/26/2020 1300 EDT [facility] Subjective: Patient ID: Janes Gooden is an 50 y.o.. male Chief Complaint Patient presents with ??? Follow-up ??? Botox Injection HPI Janes is here for management of his spasticity related to his cerebral palsy with spastic quadriparesis. He was last seen 07/29/2020 for Botox procedure. He has been receiving 300 units of Botox to bilateral posterior thighs for some time now. He has had no negative consequences. He always finds his legs to feel less tight and easier for him to safelymanage his stand pivot transfers after the Botox. Starting to experience increased tightness now. He has not had any falls. In the summer heat he has been experiencing a lot more dependent edema. They state that is pretty common for him but given the degree of heat and humidity lately it has been worse. He does feel pressure in his feet from the swelling. He could not get his shoes on today because of the swelling. His wheelchair is functioning well but he does not identify any other equipment needs. He is accompanied here today by his mother. She states when he does come to their home they are able to get his legs fully up overnight and theswelling goes down. That is not apparently that possible in his own apartment. Patient Active Problem List Diagnosis ??? 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 Past Surgical History: Procedure Laterality Date ??? HIP SURGERY ??? HIP SURGERY ??? SPINE SURGERY gavin rods No family history on file. Social [...] Strain: ??? Difficulty of Paying Living Expenses: Food Insecurity: ??? Worried About Running Out of Food in the Last Year: ??? Ran Out of Food in the Last Year: Transportation Needs: ??? Lack of Transportation (Medical): ??? Lack of Transportation (Non-Medical): Physical Activity: ??? Days of Exercise per Week: ??? Minutes of Exercise per Session: Stress: ??? Feeling of Stress : Social Connections: ??? Frequency of Communication with Friends and Family: ??? Frequency of Social Gatherings with Friends and Family: ??? Attends Yazidism Services: ??? Active Member of Clubs or Organizations: ??? Attends Club or Organization Meetings: ??? Marital Status: Current Outpatient Medications Medication Sig Note Dispense [...] unit injection Inject into the muscle. ??? Owzmviv-Ktdkxazkb-Otqu [id number] mg Tab Take 2 Tabs by [...] on file to calculate BMI. Physical Exam Janes is alert and fully cooperative with all aspects of exam and procedure. Stable baseline dysarthria with slightly slowed speech. He arrives in his light weight power chair with a joystick that he operates with his right hand. Upper extremities cannulate in a flexed high guard position but he is able to control right-handed enough to manage the joystick. 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 Requires assistance from his mother and staff for his transfer today as he is in stocking feet and his standing position is very crouched. Kneeflexion contractures of proximately 40 degrees from full extension. With allowable range MAS 2 but as he approaches end range MAS 3 moving to 4. Significant dependent edema. 2-3+ bilateral calves (greater on the left than the right) 4+ bilateral feet. No pain with palpation. 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 His lower extremity tone has been increasing impacting his transfer safety. He has had no falls yet. Appropriate to proceed with Botox injections to his bilateral hamstrings. Botox 300 units was injected without complication. Please see separate procedure note. Prior authorization is being requested for 300 units for next planned injection. We will plan for follow-up in 3 months. Assess dosing and timing of Botox again at that time. Plan: Encounter Diagnoses Name Primary? 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HCC-CMS) Yes Med Orders Placed This Visit and Additions to the Medication List Medications ??? botulinum toxin Type A (BOTOX) injection 300 Units No orders of the defined types were placed in this encounter. Future Appointments Date Time Provider Department Center 01/21/2021 13:00 [facility] Portions of this document have been prepared with speech recognition software or keyboard data warehousing engineer techniques. Minor irregularities or keyboarding misprints may be present. I spent a total of 10 minutes on the date of this encounter meeting with the patient and reviewing documentation/coordinating care as described in the above note. This was separate from any procedures performed at the time of the visit. documented in this encounter Procedure Notes * Cora Foster MD - 10/26/2020 1300 EDT Procedure: Procedures After reviewing history [...] short axis view if noted () Position: Laying prone on exam table. Purple needle (anticipate can use a blue next time) ?? 10/29/19 02/03/20 04/29/20 ??07/29/20 10/26/20 Left ? Semimemb ??75 ??75 ??75 75 [...] Future Appointments Date Time Provider Department Center 01/21/2021 13:00 Cora Foster MD [facility] None documented in this encounter Plan of Treatment Scheduled Referrals Name Type Priority Associated Diagnoses Orde r Schedule AMB MEDICATION PRIOR AUTHORIZATION Outpatient Referral Routine 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HCC-CMS) Ordered: 10/26/2020 documented as of this encounter Visit Diagnoses Diagnosis 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HCC-CMS)- Primary Congenital quadriplegia documented in this encounter Administered Medications Inactive Administered Medications - up to 3 most recent administrations Medication Order MAR Action Action Date Dose Rate Site botulinum toxin Type A (BOTOX) injection 300 Units 300 Units, intramuscular, NOW X1, 1 dose, On Sun10/26/20 at 0000, Routine Given 10/26/2020 13:36 EDT 300 Units documented in this encounter Care Teams Neckties Painter Relationship Specialty Start Date End Date Lucy Elizabeth MD [address] [place] [phone] PCP - General 09/28/08 03/08/21 documented as of this encounter
--- OUTSIDE RECORDS SUMMARY | 2023-10-25 14:41 | XMS_ITS | Encounter Summary ---
Author Organization [facility] Address [address] [place] [address] Care Team Providers Care Oven Dumper Name Role Phone Suyapa Duarte MD Primary Care Provider Reason for Visit * Reason Comments Fall Pt who is w/c bound was in bed and attempting to get from bed to w/c with help of mom who is staying with him due to tailbone injury 2 weeks ago r/t a fall. Per EMS, they respond frequently to pt falling - usually he declines transport, but tonight he agreed because he was worried about head injury. Pt is not on anticoagulants. Encounter Details Date Type Department Care Team (Late st Contact Info) Description 03/09/2021 1:07 EST - 03/09/2021 8:42 EST Emergency [facility] Emergency Department [address], [place] [id number] Priti Fischer, DO [address] [place] [address] Injury of head, initial encounter (Primary Dx); Fall, initial encounter; Abrasions of multiple sites Discharge Disposition: Home or Self Care Social [...] 1:15 EST documented as of this encounter Last Filed Vital Signs Vital Sign Reading Time Taken Comments Blood Pressure 122/85 03/09/2021 0346 EST Pulse 78 03/09/2021 0114 EST Temperature 35.9 ??C (96.6 ??F) 03/09/2021 0114 EST Respiratory Rate 18 03/09/2021 0114 EST Oxygen Saturation 94% 03/09/2021 0346 EST Inhaled Oxygen Concentration - - Weight - - Height - - Body Mass Index - - documented in this encounter Functional Status Functional Status Response [...] 02/10/2016 documented as of this encounter Discharge Instructions * Discharge Instructions* Priti Fischer DO - 03/09/2021 7:03 EST You were seen in the emergency room after your fall tonight. Your head CT was normal. Please follow up with your primary care doctor as needed. You can take tylenol or motrin as needed for pain. Please return to the emergency room if your headache is all of a sudden worse, you are not acting like yourself, you have multiple episodes of vomiting, or any other new or concerning symptoms. documented in this encounter Medications at Time [...] 100 unit injection Inject into the muscle. Ldursbl-Hldgcghwj-Jrfj 333-133-5 mg Tab Take 2 Tabs by [...] Code Departure Means Destination Home or Self Alf documented in this encounter ED Notes * Christopher Reyes RN - 03/09/2021 0841 EST Got patient up to chair with help of KAYLEN Castellanos and his mother. * Luda Johnston RN - 03/09/2021 0718 EST Lying in bed, awaiting safe transport, with personal w/c. Mom is coming to pick him up. * Destinee Velásquez RN - 03/09/2021 0634 EST Patient in bed appears to be sleeping, NAD noted and nursing will continue to monitor. * Destinee Velásquez RN - 03/09/[address] [facility] stated that they did not have coverage to bring patient back to his apartment and [facility] was contacted. [facility] declined to transport patient because of his insurance and not being able to collect payment. Patient will wait in the ED until [facility] obtains coverage. MotherDesiree notified. * Patrizia Gee RN - 03/09/2021 0239 EST Patient is resting quietly with no complaints. Mother at bedside. * Priti Fischer DO - 03/09/2021 0120 EST Emergency Department Visit Assessment and ED Course Janes Gooden is a 50 y.o. male who presents to the ED for head trauma after falling onto the floor while trying to transfer from his bed to his wheelchair. CT head shows No acute fracture. 2. No acute intracranial findings. Patient and his mother were given the results of his CT. Patient will be discharged home. Patient encouraged to follow-up with his primary care doctor as needed. Patient was given return precautions which he expressed understanding. Final diagnoses: Injury of head, initial encounter Fall, initial encounter Abrasions of multiple sites Disposition: Discharged Chief complaint: fall, head trauma HPI Janes Gooden is a 50 y.o. male who presents to the ED for head trauma after falling onto the floor while trying to transfer from his bed to his wheelchair. No loss of consciousness. He reports a headache in the front of his head. He did not take anything for pain prior to arrival. No changes to his vision, nausea, or vomiting. Per EMS they respond to patient for frequent falls but patient usually declines transport. Patient is not on anticoagulation. Patient reports pain in his right knee which also occurred when he fell. History was provided by: Patient, EMS Patient's pertinent PMH, FH, SH were reviewed and edited as necessary. Review of Systems Constitutional: Negative for fever. HENT: Negative for sore throat. Eyes: Negative for redness. Respiratory: Negative for cough and shortness of breath. Cardiovascular: Negative for chest pain. Gastrointestinal: Negative for abdominal pain, nausea and vomiting. Genitourinary: Negative. Musculoskeletal: Negative for falls. Skin: Negative for rash. Neurological: Positive for headaches. Negative for dizziness, speech change, focal weakness and loss of consciousness. Physical Exam BP 122/85 Pulse 78 Temp 35.9 ??C (96.6 ??F) (Temporal) Resp 18 SpO2 94% A medical screening exam was performed. Physical Exam Vitals and nursing note reviewed. Constitutional: General: He is not in acute distress. Appearance: He is well-developed and well-nourished. HENT: Right Ear: External ear normal. Left Ear: External ear normal. Nose: Nose normal. No nasal discharge. Mouth/Throat: Mouth: Mucous membranes are moist. Pharynx: Oropharynx is clear. Eyes: Conjunctiva/sclera: Conjunctivae normal. Pupils: Pupils are equal, round, and reactive to light. Cardiovascular: Rate and Rhythm: Normal rate and regular rhythm. Pulses: Intact distal pulses. Pulmonary: Effort: Pulmonary effort is normal. No respiratory distress. Comments: Normal work of breathing, able to speak in full sentences, no audible wheezing, no cough Abdominal: Palpations: Abdomen is soft. Tenderness: There is no abdominal tenderness. Musculoskeletal: General: Normal range of motion. Cervical back: Normal range of motion and neck supple. Skin: General: Skin is warm and dry. Capillary Refill: Capillary refill takes less than 2 seconds. Comments: Small abrasions to left frontal scalp and right knee Neurological: General: No focal deficit present. Mental Status: He is alert and oriented to person, place, and time. Psychiatric: Mood and Affect: Mood and affect normal. Imaging obtained was reviewed and independently interpreted. Procedures Procedures documented in this encounter Plan of Treatment Not on file documented as of this encounter Procedures Procedure Name Priority Date/Time Associated Diagnosis Comments CT HEAD WO CONTRAST STAT 03/09/2021 2:33 EST documented in this encounter Results * CT HEAD WO CONTRAST (03/09/2021 2:33 EST) Anatomical Region Laterality Modality Head Computed Tomogra phy 03/09/2021 2:15 EST Impressions 03/09/2021 3:00 EST 1. ??No acute fracture. 2. ??No acute intracranial findings. THIS DOCUMENT HAS BEEN ELECTRONICALLY SIGNED BY JAMESON TEJEDA MD FOR ANY QUESTIONS OR CONCERNS REGARDING THIS REPORT PLEASE CALL [facility] AT [phone] Narrative 03/09/2021 3:00 EST PROCEDURE INFORMATION: Exam: CT Head Without Contrast Exam date and time: 03/09/2021 2:15 AM Age: 50 years old Clinical indication: Injury; Blunt trauma; Fell transferring from wheelchair to toilet and hit left front scalp on floor TECHNIQUE: Imaging protocol: Computed tomography of the head without contrast. Radiation optimization: All CT scans at this facility use at least one of these dose optimization techniques: automated exposure control; mA and/or kV adjustment per patient size (includes targeted exams where dose is matched to clinical indication); or iterative reconstruction. COMPARISON: No relevant prior studies available. FINDINGS: Brain: No acute intracranial hemorrhage. Mild diffuse cerebral atrophy. No mass effect or midline shift. No extra-axial fluid collection. Cerebral ventricles: Ventricular prominence in this patient with mild diffuse cerebral atrophy. Paranasal sinuses: No significant disease of the paranasal sinuses. Mastoid air cells: No mastoiditis. Bones/joints: No acute fracture. Soft tissues: No soft tissue hematoma. Procedure Note Jameson Tejeda MD - 03/09/2021 PROCEDURE INFORMATION: Exam: CT Head Without Contrast Exam date and time: 03/09/2021 2:15 AM Age: 50 years old Clinical indication: Injury; Blunt trauma; Fell transferring from wheelchair to toilet and hit left front scalp on floor TECHNIQUE: Imaging protocol: Computed tomography of the head without contrast. Radiation optimization: All CT scans at this facility use at least one of these dose optimization techniques: automated exposure control; mA and/or kV adjustment per patient size (includes targeted exams where dose is matched to clinical indication); or iterative reconstruction. COMPARISON: No relevant prior studies available. FINDINGS: Brain: No acute intracranial hemorrhage. Mild diffuse cerebral atrophy. No mass effect or midline shift. No extra-axial fluid collection. Cerebral ventricles: Ventricular prominence in this patient with mild diffuse cerebral atrophy. Paranasal sinuses: No significant disease of the paranasal sinuses. Mastoid air cells: No mastoiditis. Bones/joints: No acute fracture. Soft tissues: No soft tissue hematoma. IMPRESSION 1. No acute fracture. 2. No acute intracranial findings. THIS DOCUMENT HAS BEEN ELECTRONICALLY SIGNED BY JAMESON TEJEDA MD FOR ANY QUESTIONS OR CONCERNS REGARDING THIS REPORT PLEASE CALL [facility] [phone] [address]riti Fischer DO [address] ORDERABLE S documented in this encounter Visit Diagnoses Diagnosis Injury of head, initial encounter- Primary Fall, initial encounter Abrasions of multiple sites Abrasion or friction burn of other, multiple, and unspecified sites, without mention of infection documented in this encounter Administered Medications Inactive Administered Medications - up to 3 most recent administrations Medication Order MAR Action Action Date Dose Rate Site acetaminophen (TYLENOL) tablet 975 mg 975 mg (rounded from 1,000 mg), oral, NOW X1, 1 dose, On Sun03/09/21 at 0400, Routine Given 03/09/2021 3:41 EST 975 mg documented in this encounter Active and Recently Administered Medications Times are shown in EST. Scheduled Medication Order 03/07/2021 03/08/2021 03/09/2021 acetaminophen (TYLENOL) tablet 975 mg (COMPLETED) 975 mg (rounded from 1,000 mg), oral, NOW X1, 1 dose, On Sun03/09/21 at 0400, Routine 0341 (Given - Provid er: Destinee Velásquez RN) documented in this encounter Care Teams Oven Dumper Relationship Specialty Start Date End Date Suyapa Duarte MD [address] [place] [phone] PCP - General Family Medicine - Primary Care 03/09/21 documented as of this encounter
--- OUTSIDE RECORDS SUMMARY | 2023-10-25 14:41 | XMS_ITS | Encounter Summary ---
Author Organization [facility] Address [address] [place] [address] Care Team Providers Care Importer Exporter Name Role Phone Lucy Elizabeth MD Primary Care Provider [phone] Reason for Referral * Medication Prior Authorization (Routine) - Specialty Report Received Specialty Diagnoses / Procedures Referred By Rubina perkins Referred To Contact Diagnoses 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HCC-CMS) Cora Foster MD [address] [place] [phone] Referral ID Status Reason Start Date Expiration Date Visits Requested Visits Authorized [id number] Specialty Report Received Medication Prior Authorization 08/06/2019 1 1 Question Answer Medication to be Prior Authorized: Botox A 400 units Comments The purpose of this consult request is to inform the scheduling staff that a medication needs to be prior-authorized before it is prescribed and/or administered. Reason for Visit * Reason Comments New Patient Visit Encounter Details Date Type Department Care Team (Latest Contact Info) Description 08/06/2019 11:[address] [facility] Physical Medicine & Rehabilitation [place] [address] Cora Foster MD [address] [place] [phone] 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HCC-CMS) (Primary [...] Progress Notes * Cora Foster MD - 08/06/2019 1100 EDT Subjective: Patient ID: Janes Gooden is an 49 y.o.. male Chief Complaint Patient presents with ??? New Patient Visit HPI Janes is a 48-year-old gentleman with spastic quadriplegic CP being referred by Dr. Naga Melendezfor ongoing management of his cerebral palsy rehabilitation medicine issues and spasticity management. Acompanied by his mother today. Janes Gooden has completed the pt. intake questionnaire with pain history,aggravating and alleviating factors, PMH, family history, pain diagram, rating scale and qualifiers. This is reviewed and placed in the chart. Prior evaluations are reviewed in the chart. They have also provided the guardianship document confirming that David Gooden is the appointed guardian for Janes since 07/14/1994. Desiree Gooden is the of David Gooden. He recently received his new power wheelchair, 06/25/2019. He was evaluated by the [facility]. [employer]. He has been receiving bilateral medial and lateral hamstring Botox injections for quite a few years. He receives injections approximately every 3 months. Recently he has receivedy Dysport from Dr. Melendez a total of 1000 units. His last injections with Dr. Melendez was still at the [facility] office [id number] units of Botox A. Those were in May 2016. He received 200 units distributed through hamstrings to each leg. His last x-rays were of his lumbar spine with report as follows: 12/22/2010 History/Comments: ??724.3-RXFJJTK-TOY-9-CM 343.2-CONGENITAL YDFHSNSVNXBU-XLX-9-CM ??2 weeks of new right low back pain. ??History of spinal fusion. ??L SPINE 2-3 VIEWS ?findings: ??There is posterior spinal fusion, involving the entire lumbar spine and the lower thoracic spine. However, the superior extent of the posterior fusion is not included on the lumbar spine films. There is no evidence of instrumentation failure. The vertebral body bodies demonstrate normal height and there is no evidence of a compression deformity. ?? The visualized portions of the pelvis demonstrate a dysplastic appearing pelvis. The right hip demonstrates mild joint space Narrowing Has followed with Dr. Melendez for about 10-12 years. He had had a shoulder injury with a fall to floor and was referred to Dr. Meza and Botox was started at that time. Has been every 3 months. Has really helped his transfers and standing and ROM. Does have falls at home from time to time. Gets EMS service to get back up. He can manage transfers in and out of the chair using grab bars located for transfers to bed and toilet. When his tone is gotten worse then he has been at more risk of falling. Has a light weight power chair they bought. His power chair he got 06/2019 they are still fine tuning. The cushion has not been great. Has a VNA PT , Destinee, who has worked with him almost since shoulder injury. She is helping with the cushion Changes. She works on his HEP and directs the aide that does a program. Parents live in [facility] . Janes has been in a accessible apt in [place] for About 27 years. He was places with them as a foster child 48 yrs. And subsequently adopted. In his apartment he gets home health aides from [facility] home health every morning for breakfast, bathing, dressing and intermittent nursing as needed. [facility] developmental services provides 30 hours/week for appointments, cleaning, food. On weekends he gets 2 to 3 hours from [facility]. His apartment has ramp access 2 other sons with families in [place]. Don't feel they could get the same level of services in that area. He is here today with his adoptive mother. Has psycho motor seizures and I s on meds but Hasn't had one in a very long time. Very subtle. Hard to notice but Janes just blanks out. Uses arthrotec for arthritic sx As needed. Has alot of food intolerances. Will get loose stool in response (whole wheat, chocolate, tomatoes ,rich foods). Patient Active Problem List Diagnosis ??? Congenital [...] resource strain: Not on file ??? Food insecurity: Worry: Not on file Inability: Not on file ??? Transportation needs: Medical: Not on file Non-medical: Not on file Tobacco Use ??? Smoking status: Former Smoker ??? Smokeless tobacco: Current User Substance and Sexual Activity ??? Alcohol use: Not on file ??? Drug use: Not on file ??? Sexual activity: Not on file Lifestyle ??? Physical activity: Days per week: Not on file Minutes per session: Not on file ??? Stress: Not on file Relationships ??? Social connections: Talks on phone: Not on file Gets together: Not on file Attends mandaen service: Not on file Active member of club or organization: Not on file Attends meetings of clubs or organizations: Not on file Relationship status: Not on file ??? Intimate partner violence: Fear of current or ex partner: Not on file Emotionally abused: Not on file Physically abused: Not on file Forced sexual activity: Not on file Other Topics Concern ??? Not on file Social History Narrative ??? Not on file Current Outpatient Medications: acetaminophen (TYLENOL) 325 mg tablet allopurinol (ZYLOPRIM) 100 mg tablet atenolol (TENORMIN) 50 mg tablet botulinum toxin Type A (BOTOX) 100 unit injection Uhqldtx-Frmpzrait-Ukqy 333-133-5 mg Tab celecoxib (CELEBREX) 100 mg capsule diclofenac-misoprostoL (ARTHROTEC 50) 50-200 mg-mcg per tablet divalproex (DEPAKOTE) 500 mg EC tablet ergocalciferol, vitamin D2, (VITAMIN D2 ORAL) levothyroxine (SYNTHROID) 112 mcg tablet lisinopriL (PRINIVIL) 20 mg tablet Magnesium Oxide 84.5 mg (140 mg) capsule METFORMIN HCL (METFORMIN ORAL) OMEGA-3 FATTY ACIDS/FISH OIL (OMEGA 3 FISH OIL ORAL) oxybutynin (DITROPAN XL) 15 mg CR tablet potassium chloride (KLOR-CON) 20 mEq packet simvastatin (ZOCOR) 40 mg tablet triamterene-hydrochlorothiazide (MAXZIDE) 75-50 mg per tablet VITAMIN B COMPLEX (B-50 COMPLEX ORAL) No [...] file to calculate BMI. Physical Exam Alert, pleasant. Seated in light weight power w/c which he manages well with L isi stick. RUE and LLE more involved of his 4 extremities. Speech: slow, dysarthirc with some word production deficits. Range of motion passively: Extension L- 30, R- 40 with fairly firm end range. He can be flexed to 90 degrees or greater both knees. Ankle positioning without any plantar flexion contracture and able to be flexed into about 20 degrees of dorsiflexion. No distal edema. Aware of touch and contact in all 4 extremities. Assessment: I will be assuming Janes's rehabilitation medicine care upon Dr. Melendez's departure from the area. He does have planned Botox injections with Dr. Melendez on August 13. He has been on a quite regular every 3-month schedule. If he does not achieve that they are concerned he could start to have a few more falls. We will work hard to provide this is much as possible. We will schedule his first Botox at our office on October 28. This is just a little bit short of 3 months so I may dose him at a level that would keep him stable enough until his appointment in February. His last Botox A dose in 2016 was 400 units. The last Dysport dose approximately 2 and half months ago was 1000 units. I will look for Dr. Melendez's last procedure notes on August 13 to see if he is keeping him stable at that dose. Plan to revert back to Botox A here. Janes and his mother are aware. Request Botox A authorization for 400 units. 08/24 Addendum: 08/13 appointment dosing confirmed from Dr. Melendez's office. 1000 units total of Dysport distributed evenly through medial and lateral hamstrings. Final dosing (Botox A 300-400) on 10/28 to be determined based on Janes's presentation. His next planned Botox after that would be approximately 3 months in the first week of February. Janes indicates that he generally is positioned on his stomach for his injections. Plan: Encounter Diagnoses Name Primary? 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HCC-CMS) Yes Document establishing proof of guardianship to be scanned into documents. Orders Placed This Encounter Procedures ??? Ambulatory Medication Prior Authorization The purpose of this consult request is to inform the scheduling staff that a medication needs to beprior-authorized before it is prescribed and/or administered. Referral Priority: Routine Referral Type: Medication Prior Authorization Referral Reason: Medication Prior Authorization Number of Visits Requested: 1 Future Appointments Date Time Provider Department Center 10/29/2019 11:30 Cora Foster MD [facility] None Portions of this document have been prepared with speech recognition software or keyboard database programmer techniques. Minor irregularities or keyboarding misprints may be present. 50 minutes face-to face time with patient, 35 minutes in education/counseling on above issues as explained in the assessment and plan. documented in this encounter Plan of Treatment Scheduled Referrals Name Type Priority Associated Diagnoses Orde r Schedule AMB MEDICATION PRIOR AUTHORIZATION Outpatient Referral Routine 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HCC-CMS) Ordered: 08/06/2019 documented as of this encounter Visit Diagnoses Diagnosis 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HCC-CMS)- Primary Congenital quadriplegia documented in this encounter Discontinued Medications Medication Sig Discontinue Reason Start Date End Da te Chromium Picolinate 400 mcg Tab Take 200 mcg by mouth daily 08/06/2019 documented as of this encounter Historical Medications * This list may reflect changes made after this encounter. Medication Sig Dispensed Refills Start Date End Date diclofenac-misoprostoL (ARTHROTEC 50) 50-200 mg-mcg per tablet Take 1 Tablet by mouth 2 times daily as needed. lisinopriL (PRINIVIL) 20 mg tablet Take 1 Tablet by mouth daily. ergocalciferol, vitamin D2, (VITAMIN D2 ORAL) Take 50,000 Int'l Units by mouth. Biweekly added in this encounter Care Teams Importer Exporter Relationship Specialty Start Date End Date Lucy Elizabeth MD [address] [place] [phone] PCP - General 09/28/08 03/08/21 documented as of this encounter
--- OUTSIDE RECORDS SUMMARY | 2023-10-25 14:41 | XMS_ITS | Encounter Summary ---
Author Organization [facility] Address [address] [place] [address] Care Team Providers Care Senior Property Manager Name Role Phone Lucy Elizabeth MD Primary Care Provider [phone] Encounter Details Date Type Department Care Team (Late st Contact Info) Description 03/25/2019 Documentation Visit [facility] Rehabilitation [address] [address] Zev Flores, PT [address] [place] [phone] Social History Tobacco Use Types Packs/Day Years [...] Notes * Zev Flores, PT - 03/25/2019 0813 EST Assessment REHABILITATION THERAPIES [facility] [address] [place] [address] Physical Therapy Addendum Note To Wheelchair Prescription [...] to reduce the risk of skin breakdown. Zev Flores PT 03/25/2019 8:13 * Hodan Parker MA - 03/25/2019 0813 EST Per Zev Flores PT request:a copy of the PT Addendum Note to Wheelchair Prescription, dated 03/25/2019 and signed by Naga Melendez MD has been faxed to DOMINIQUE Hutchison of [facility] . documented in this encounter Plan of Treatment Not on file documented as of this encounter Visit Diagnoses Not on filedocumented in this encounter Care Teams Senior Property Manager Relationship Specialty Start Date End Date Lucy Elizabeth MD [address] [place] [phone] PCP - General 09/28/08 03/08/21 documented as of this encounter
--- OUTSIDE RECORDS SUMMARY | 2023-10-25 14:41 | XMS_ITS | Encounter Summary ---
Author Organization [facility] Address [address] [place] [address] Care Team Providers Care Shipping/Receiving Clerk Name Role Phone Lucy Elizabeth MD Primary Care Provider [phone] Reason for Referral * Medication Prior Authorization (Routine) - Specialty Report Received Specialty Diagnoses / Procedures Referred By Rubina perkins Referred To Contact Physical Medicine and Rehab Diagnoses Spasticity 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[facility]-CMS) Cora Foster MD [address] [place] [phone] [facility] [address] [place] [address] [place] [address] Referral ID Status Reason Start Date Expiration Date Visits Requested Visits Authorized [id number] Specialty Report Received Medication Prior Authorization 0 [...] Contact Diagnoses Spasticity 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HCC-CMS) Cora Foster MD [address] [place] [phone] Referral ID Status Reason Start Date Expiration Date Visits Requested Visits Authorized [id number] Specialty Report Received Medication Prior Authorization 0 1 1 Encounter Details Date Type Department Care Team (Latest Contact Info) Description 02/03/2020 15:30 EST Procedure visit [facility] Physical Medicine & Rehabilitation - [address] [place], [place] [phone] Cora Foster MD [address] [place] [phone] 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HCC-CMS) (Primary Dx); [...] Progress Notes * Cora Foster MD - 02/03/2020 1530 EST Subjective: Patient ID: Janes Gooden is an 49 y.o.. male Chief Complaint Patient presents with ??? Follow-up ??? Botox Injection HPI Janes returns today with a goal of being assessed for his spasticity and hope for repeat Botox injections. We had seen him since his last injection that was done on 10/28 and evaluated him on 12/14. He felt the injections have gone well. He had no negative effects. At this point the Botox is wearing off some but has not worn off markedly. The benefit of the injection seems to be lasting a little bit longer than his prior ones. Reports his health has been good. He does not have any other equipment needs or concerns. Accompanied here today by his mom. They report he has been healthy. Janes has no problems with any of his present equipment or medications. He has no skin issues. No fevers or infections. Patient Active Problem List Diagnosis ??? 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[facility]-CMS) No past medical history on file. Past [...] file Gets together: Not on file Attends hindu service: Not on file Active member of [...] ??? Not on file Current Outpatient Medications on File Prior to Visit Medication Sig Dispense Refill ??? acetaminophen (TYLENOL) 325 mg tablet Take 325 mg by mouth as needed prn ??? allopurinol (ZYLOPRIM) 100 mg tablet Take 200 mg by mouth 2 times daily. 100 mg AM, 200 at 2000 ??? atenolol (TENORMIN) 50 mg tablet Take 100 mg by mouth daily. ??? botulinum toxin Type A (BOTOX) 100 unit injection Inject into the muscle. ??? Sfzwluh-Kmaahexkz-Alft 333-133-5 mg Tab Take 2 Tabs by [...] by mouth daily. No current facility-administered medications on file prior to visit. Allergies Allergen Reactions ??? Antifungal [Undecylenic Ac-Zinc Undecylena] All oral antifungals ??? Asa [Aspirin] ??? Chocolate Flavor ??? Ibuprofen ??? Lactose Intolerance (Lactase) ??? Naproxen ??? Other - See Comments tuna ??? Salicylates ??? Tomato Diarrhea ROS - See HPI Objective: No data found. There is no height or weight on file to calculate BMI. Physical Exam Alert. Spastic quadriparesis supported in light weight power wheelchair. Joystick placed on left armrest for him to maneuver independently. In the seated position his arms tend to be externally rotated at the shoulder, elbows flexed. Thighs feet and calves are well positioned in his wheelchair. Hips tend to be in a more ABducted position. Knees flex slightly more than 90 degrees. Ankles and some dorsiflexion. He has both hip flexion and knee flexion contractures. Hip flexion approximately 20 degrees. Knee flexors 25 to 30 degrees contracture. Difficult for him to initiate much lower extremity motion. Can get a little bit of knee flexion when asked to move his lower extremities but in a synergistic pattern triggering both hip flexors and knee flexors. When pushed to near end of optimal range he has more significant knee flexion resistance. When spasticity is triggered either by effort or startle MAS score of 3. When laying prone on the exam table he has some windswept deformity more to the right. For transfers he is a squat pivot. He can take a little bit of a sidestep to shift between 1 surface to another but needs assistance. Assessment: Janes has been doing well with Botox injections to his posterior thigh areas to address his knee flexor spasticity. This has improved allowable range at his knees and improved stability with his transfers. He has been receiving Botox injections since January [address] Melendez. The last injections of 300 units have helped him well. The dose was not too strong. Procedure completed without difficulty. Please see separate procedure note. Slight adjustments made to distribution based on ultrasound scanning prior to his injections. No images saved. Additionally longer needle utilized (2 inch, 25-gauge) 2 get to some of the deeper portions of the muscle. Plan to request prior authorization for 300 units. Next injections will be the end of April. Summary of prior notes from Dr. Melendez: ??08/14/19:??1000 DYSP (250 Q hamstring) 05/07/19: 1000 (250 each M/L hamstring B) All prior dates listed with same dose: 02/05/19, 11/06/18, 08/22/18, 04/23/18 10/07/2018: F/U-review of mobility issues, equipment needs. ??Prescription sent for full new power wheelchair evaluation as his 8-year-old W/C at that time was having malfunction issues. Last injections while at [facility]: 05/10/2016-Botox 400, 200 distributed to each posterior thigh equallythrough M/L HS [facility] first dose 01/2008 Plan: Encounter Diagnoses Name Primary? 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HCC-CMS) Yes ??? Spasticity Orders Placed This Encounter Procedures ??? POC PHYSIATRY ULTRA SOUND GUIDED BOTOX TREATMENT Standing Status: Future Number of Occurrences: 1 Standing Expiration Date: 02/01/2021 Order Specific Question: Reason for exam: Answer: US guided Botox injection for spasticity Future Appointments Date Time Provider Department Center 04/29/2020 13:30 [facility] Portions of this document have been prepared with speech recognition software or keyboard data input clerk techniques. Minor irregularities or keyboarding misprints may be present. 15 minutes total time face to face, 10 minutes in discussion / ed. with patient on above issues in addition to Botox procedure. Procedure: Procedures After reviewing above history and [...] and thus more receptive to further Botox. Posterior thigh musculature was scanned by US to identify some of the areas of his muscle that appeared more dense thus having had more Botox injected to help look for obstructive to further Botox injections. US showed significant muscle mass in the biceps femoris short head muscle with no evidenceof injection there. Mid to distal portions of his hamstring muscles had more Botox injection change than proximally. Position: Prone. Ethyl chloride spray for local topical anesthetic. EMG needle guidance used for all muscles. In addition, US guidance used in combination with EMG needle guidance at muscles as documented below. Images saved in short axis view if noted () Previous dose if changed: (*). Short head biceps femoris: Units Right 25 (0) Left 25 (0) Long head biceps femoris: Injection more proximal Units Right 50 (75) Left 50 (75) Semimembranosus/medial hamstring: Injection more proximal Units Right 75 (75) Left 75 (75) Total botox units injected: 300 Total botox units wasted: 0 Plan: Return to clinic for assessment of Botox efficacy and repeat Botox injections in 12 weeks. Future Appointments Date Time Provider Department Center 04/29/2020 13:30 [facility] * Cora Foster MD - 02/03/2020 1530 EST Procedure: Procedures See progress note for all procedure information regarding Botox injections documented in this encounter Plan of Treatment Pending Results Name Type Priority Associated Diagnoses Date /Time POC US PHYSIATRY GUIDED BOTOX TREATMENT Imaging Routine Spasticity 02/03/2020 15:31 EST Scheduled Orders Name Type Priority Associated Diagnoses Orde r Schedule POC US PHYSIATRY GUIDED BOTOX TREATMENT Imaging Routine Spasticity Expected: 02/03/2020 (Approximate), Expires: 02/01/2021 Scheduled Referrals Name Type Priority Associated Diagnoses Orde r Schedule AMB MEDICATION PRIOR AUTHORIZATION Outpatient Referral Routine Spasticity 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HCC-CMS) Ordered: 02/03/2020 documented as of this encounter Visit Diagnoses Diagnosis 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HCC-CMS)- Primary Congenital quadriplegia Spasticity Abnormal involuntary movements documented in this encounter Administered Medications Inactive Administered Medications - up to 3 most recent administrations Medication Order MAR Action Action Date Dose Rate Site botulinum toxin Type A (BOTOX) injection 400 Units 400 Units, intramuscular, NOW X1, 1 dose, On Sun02/03/20 at 1800, Routine Given 02/03/2020 15:58 EST 300 Units documented in this encounter Care Teams Shipping/Receiving Clerk Relationship Specialty Start Date End Date Lucy Elizabeth MD [address] [place] [phone] PCP - General 09/28/08 03/08/21 documented as of this encounter
--- OUTSIDE RECORDS SUMMARY | 2023-10-25 14:41 | XMS_ITS | Encounter Summary ---
Author Organization [facility] Address [address] [place] [address] Care Team Providers Care Mining Analyst Name Role Phone Lucy Elizabeth MD Primary Care Provider [phone] Encounter Details Date Type Department Care Team (Late st Contact Info) Description 01/25/2021 Results Only [facility] [phone] Suyapa Duarte MD [address] [place] [phone] Social History Tobacco Use Types Packs/Day [...] Procedure Name Priority Date/Time Associated Diagnosis Comments MAGNESIUM Routine 01/25/2021 15:24 EST documented in this encounter Results * MAGNESIUM (01/25/2021 15:24 EST) Magnesium 1.90 1.60 - 2.30 mg/dL [facility] 01/25/2021 15:2 4 EST Suyapa Duarte MD CHEMISTRY & BLOOD GA S ORDERABLES Performing Organization Address City/State/[facility] Co de Phone Number [facility] [address] [place] [address] documented in this encounter Visit Diagnoses Not on filedocumented in this encounter Care Teams Mining Analyst Relationship Specialty Start Date End Date Lucy Elizabeth MD [address] [place] [phone] PCP - General 09/28/08 03/08/21 documented as of this encounter
--- OUTSIDE RECORDS SUMMARY | 2023-10-25 14:41 | XMS_ITS | Encounter Summary ---
Author Organization [facility] Address [address] [place] [address] Care Team Providers Care Tennis Coach Name Role Phone Suyapa Duatre MD Primary Care Provider [phone] Encounter Details Date Type Department Care Team (Latest Contact Info) Description 03/09/2021 Travel Social History Tobacco Use Types Packs/Day [...] on filedocumented in this encounter Care Teams Tennis Coach Relationship Specialty Start Date End Date Suyapa Duarte MD [address] [place] [phone] PCP - General Family Medicine - Primary Care 03/09/21 documented as of this encounter
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
--- OUTSIDE RECORDS SUMMARY | 2023-10-25 14:42 | XMS_ITS | Encounter Summary ---
Author Organization [facility] Address [address] [place] [address] Care Team Providers Care Print Cutter Name Role Phone Lucy Elizabeth MD Primary Care Provider [phone] Reason for Referral * Consult (Routine/Next Available) - Specialty Report Received Specialty Diagnoses / Procedures Referred By Contac t Referred To Contact Diagnoses 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[facility]) Naga Melendez MD [address] [place] [address] Referral ID Status Reason Start Date Expiration Date Visits Requested Visits Authorized [id number] Specialty Report Received Specialty Services Required 02/09/2015 1 1 Question Answer Medication to be Prior Authorized: Botox for next time. Comments Botox 400 units Reason for Visit * Reason Comments Botox Injection * Consult (Routine/Next Available) - Specialty Report Received Specialty Diagnoses / Procedures Referred By Contac t Referred To Contact Diagnoses 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[facility]) Naga Melendez MD [address] [place] [address] Referral ID Status Reason Start Date Expiration Date Visits Requested Visits Authorized [id number] Specialty Report Received Specialty Services Required 10/26/2014 1 1 Encounter Details Date Type Department Care Team (Latest Contact Info) Description 02/09/2015 13:30 EST Office Visit [facility] Physical Medicine & Rehabilitation - [place] [address] Naga Melendez MD [address] [place] [address] [address] [place], [place] [phone] 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HCC-CMS) (Primary Dx) Social History Tobacco Use Types Packs/Day Years Used Date Smoking Tobacco: Never Assessed Sex and Gender Information Value Date Recorded [...] visiting a doctor's office or shopping? Yes 02/09/2015 Cognitive Status Response Date of Assessm ent Because of a physical, menta l, or emotional condition, does this person have serious difficulty concentrating, remembering, or making decisions? No 02/09/2015 documented as of this encounter Patient Instructions * Patient Instructions* Naga Melendez MD - 02/09/2015 13:48 EST Physical Medicine and Rehabilitation Naga Melendez M.D. [address] [place] [address] Discharge Instructions after Botulinum Toxin Injections Diet : As tolerated Activity: As tolerated; The muscles injected may be sore for a couple days. You may use Advil or Tylenol in doses as you normally would. If bracing is worn in the area of the injections, you may wantto wait for 24 hrs before reapplying. Be aware, as you/your child adjusts to the decreased tone of the muscles, there may be a temporary decrease in your ability to walk or use your arm. Side effects are usually temporary and Botulinum Toxin is generally well tolerated. But some of thethings to watch out for are as follows: LESS SERIOUS side effects - call your Doctor the next day: Nausea Brief flu-like symptoms (may develop 1-7 days after injection and last for 24hrs) Infection at the injection site with redness, warm to touch and/or pus-like drainage Dry mouth Bruising MORE SERIOUS side effects - call your doctor immediately: Allergic Reaction (Itching or Hives, Swelling of hands, face, tongue or mouth) Extreme muscle or generalized weakness not in the area of injection Trouble swallowing/talking/breathing Unusual worsening pain at the site Double vision Breathing difficulties Please contact Dr. Melendez???s office for any questions you may have at [phone]. The office is open Sunday-Sunday from 8:00 am to 5:00pm. On weekends or evenings, if you have a serious problem, please call your Floatman, Primary CarePhysician or go to your local Emergency Room. If for any reason a follow-up appointment was not provided or you need to reschedule an appointment, please call our office, the [facility] ([phone] or [phone]) or the [facility] ([phone] or [phone]) if that is where you are seen. 410ss documented in this encounter Progress Notes * José Luis Rm RN - 02/09/2015 1358 EST Botulinum toxin Lot #: [id number] Botulinum toxin expiration date: June2017 Botulinum toxin [facility] # [id number] Total Botulinum toxin units injected: 400 Total Botulinum toxin units wasted: 0 * Naga Melendez MD - 02/09/2015 1350 EST Botulinum Toxin Injection Procedure Note Pre-Procedure Diagnosis: Spastic tetraplegia Indications: spasticity that adversely impacts function of standing and transfers. Still benefits from injections to reduce knee flexor tone and make it easier to do weight baring transfers. No negative side FX. EXAM: shows tone in knee flexors. MAS 3. Transfers with mod assist, squat pivot. Procedure Details Consent was obtained after discussing possible side effects and complications including risk for systemic absorption, generalized weakness, swallowing dysfunction, and respiratory suppression. The limb(s) for injection were identified and a time out called to re-identify the correct limb forinjection. After prepping the skin with alcohol overlying the following muscles, botlinum toxin wasinjected intramuscularly using EMG guidance as follows. EMG localization was used to maximize accuracy of needle placement in the muscles involved as well as maximizing accuracy of the needle in the most active fascicles of the muscles involved. Hyperactive motor unit activity is noted with the EMG needle. BOTOX: Hamstring: Units Right 200 Left 200 Total botox units injected: 400 Total botox units wasted: 0 Plan: Return to clinic for assessment of botulinum toxin effectiveness in 3 months. An After Visit Summary was printed and given to the patient. documented in this encounter Plan of Treatment Scheduled Referrals Name Type Priority Associated Diagnoses Orde r Schedule AMB MEDICATION PRIOR AUTHORIZATION Outpatient Referral Routine 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[facility]) Ordered: 02/09/2015 documented as of this encounter Visit Diagnoses Diagnosis 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[facility])- Primary Congenital quadriplegia documented in this encounter Discontinued Medications Medication Sig Discontinue Reason Start Date End Da te guaiFENesin (MUCINEX) 600 mg SR tablet Take 1,200 mg by mouth 2 times daily as needed Patient Stopped Taking 02/09/2015 magnesium oxide (MAG-OX) 400 mg tablet Take 400 mg by mouth 2 times daily. Patient Stopped Taking 10/25/2010 02/09/2015 documented as of this encounter Historical Medications * This list may reflect changes made after this encounter. Medication Sig Dispensed Refills Start Date End Date Magnesium Oxide 84.5 mg (140 mg) capsule Take by mouth 4 times daily. added in this encounter Care Teams Print Cutter Relationship Specialty Start Date End Date Lucy Elizabeth MD [address] [place] [phone] PCP - General 09/28/08 03/08/21 documented as of this encounter
--- OUTSIDE RECORDS SUMMARY | 2023-10-25 14:42 | XMS_ITS | Encounter Summary ---
Author Organization [facility] Address [address] [place] [address] Care Team Providers Care Foam Cutting Supervisor Name Role Phone Lucy Elizabeth MD Primary Care Provider Encounter Details Date Type Department Care Team (Late st Contact Info) Description 01/12/2014 Orders Only [facility] Rehabilitation Therapy [address] [phone] Naga Melendez MD [address] [place] [address] [address] [place], [place] [phone] 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HCC-CMS) (Primary Dx) Social History Tobacco Use Types Packs/Day Years Used Date Smoking Tobacco: Never Assessed Sex and Gender Information Value Date Recorded Sex Assigned at Not on file Gender Identity Male 06/12/2019 8:16 EDT Sexual Orientation Not on file documented as of this encounter Plan of Treatment Not on file documented as of this encounter Visit Diagnoses Diagnosis 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HCC-CMS)- Primary Congenital quadriplegia documented in this encounter Orders Equipment Count Last Ordered Date First Orde red Date GENERIC DME ORDER 1 01/12/2014 documented in this encounter Care Teams Foam Cutting Supervisor Relationship Specialty Start Date End Date Lucy Elizabeth MD [address] [place] [phone] PCP - General 09/28/08 03/08/21 documented as of this encounter
--- OUTSIDE RECORDS SUMMARY | 2023-10-25 14:42 | XMS_ITS | Encounter Summary ---
Author Organization [facility] Address [address] [place] [address] Care Team Providers Care Beater And Pulper Feeder Name Role Phone Lucy Elizabeth MD Primary Care Provider [phone] Encounter Details Date Type Department Care Team (Late st Contact Info) Description 03/09/2017 Historical Results Only [facility] Lab - Main [address] [address] Lucy Elizabeth MD [address] [place] [phone] Social History Tobacco Use Types Packs/Day [...] Associated Diagnosis Comments VIT D, 25-HYDROXY - CV Routine 03/09/2017 10:00 EST COMPLETE BLOOD COUNT WITH DIFFERENTIAL (AUTO) Routine 03/09/2017 10:00 EST T3, TOTAL Routine 03/09/2017 10:00 EST T4 FREE Routine 03/09/2017 10:00 EST VALPROIC ACID LEVEL Routine 03/09/2017 1 0:00 EST documented in this encounter Results * (ABNORMAL) VALPROIC ACID LEVEL (03/09/2017 10:00 EST) Valproic Acid 44.2(L) 50 - 100 ug/mL 03/09/2017 12:34 EST [facility] Comment: Therapeutic Range: 50-100 ug/mL Toxic: ??>120 ug/mL 03/09/2017 10:0 0 EST 03/09/2017 10:57 EST Lucy Elizabeth MD CHEMISTRY & BLOOD GA S ORDERABLES Performing Organization Address [facility] de Phone Number [facility] * VIT D, 25-HYDROXY - [facility] (03/09/2017 10:00 EST) VIT D, 25 HYDROXY - [facility] 51.5 30 - 100 ng/ml 03/09/2017 13:01 EST [facility] Comment: ? 25-Hydroxy D Total (D2+D3) ?Expected Values Deficient: ?<20 ng/ml Insufficient: ? 20- <30 ng/ml Sufficient: ? 30-100 ng/ml Potential intoxication: >100 ng/ml 03/09/2017 10:0 0 EST 03/09/2017 10:57 EST Lucy Elizabeth MD CHEMISTRY & BLOOD GA S ORDERABLES Performing Organization Address [facility]/ZIP Co de Phone Number [facility] * T3, TOTAL (03/09/2017 10:00 EST) TOTAL T3, External 1.28 0.97 - 1.69 ng/mL 03/09/2017 13:01 [facility] 03/09/2017 10:0 0 EST 03/09/2017 10:57 EST Lucy Elizabeth MD CHEMISTRY & BLOOD GA S ORDERABLES Performing Organization Address City/[facility]/ZIP Co de Phone Number [facility] * T4 FREE (03/09/2017 10:00 EST) FREE T4 - [facility] 0.98 0.78 - 2.19 ng/dl 03/09/2017 13:01 [facility] 03/09/2017 10:0 0 EST 03/09/2017 10:57 EST Lucy Elizabeth MD CHEMISTRY & BLOOD GA S ORDERABLES Performing Organization Address City/[facility] Co de Phone Number [facility] * (ABNORMAL) COMPLETE BLOOD COUNT WITH DIFFERENTIAL (AUTO) (03/09/2017 10:00 EST) Pathologist [facility] ABSOLUTE NEUTROPHIL COUN - [facility] 4.70 1.7 - 7.0 10e3/ul 03/09/2017 11:56 [facility] BASO # - [facility] 0.04 0.0 - 0.3 10e3/uL 03/09/2017 11:56 [facility] BASO % - [facility] 1 0 - 2 % 03/09/2017 11:56 [facility] EOS # - [facility] 0.05 0.05 - 0.5 10e3/uL 03/09/2017 11:56 [facility] EOS % - [facility] 1 0 - 5 % 03/09/2017 11:56 [facility] GRAN % - [facility] 55 40 - 80 % 03/09/2017 11:56 [facility] HEMATOCRIT - [facility] 46.4 36.0 - 52.0 % 03/09/2017 11:56 [facility] HEMOGLOBIN - [facility] 15.6 13.7 - 17.5 g/dl 03/09/2017 11:56 [facility] IG# - [facility] 0.04 0 - 0.07 10e3/uL 03/09/2017 11:56 [facility] IG% - [facility] 0.5 0 - 0.9 % 03/09/2017 11:56 [facility] LYMPH # - [facility] 3.04(H) 0.9 - 2.9 10e3/uL 03/09/2017 11:56 [facility] LYMPH% - [facility] 36 20 - 40 % 03/09/2017 11:56 [facility] MEAN CORPUSCULAR HGB - CV 29.7 26 - 34 pg 03/09/2017 11:56 [facility] MEAN CORPUSCULAR HGB [facility] - [facility] 33.6 31 - 36 g/dL 03/09/2017 11:56 [facility] MEAN CELL VOLUME - [facility] 88.2 77 - 100 fl 03/09/2017 11:56 [facility] MONO # - [facility] 0.63 0.3 - 0.9 10e3/uL 03/09/2017 11:56 [facility] MONO% - [facility] 7 0 - 12 % 03/09/2017 11:56 [facility] PLATELET COUNT 189 150 - 400 10e3/ul 03/09/2017 11:56 [facility] RED BLOOD COUNT - [facility] 5.26 4.3 - 5.7 10e6/ul 03/09/2017 11:56 [facility] RED CELL DISTRI WIDTH - [facility] 14.9 11.8 - 15.6 % 03/09/2017 11:56 [facility] WHITE BLOOD COUNT - [facility] 8.5 3.5 - 10.5 10e3/ul 03/09/2017 11:56 [facility] 03/09/2017 10:0 0 EST 03/09/2017 10:57 EST Lucy Elizabeth MD HEMATOLOGY & PF4 ORD ERABLES [facility] documented in this encounter Visit Diagnoses Not on filedocumented in this encounter Care Teams Beater And Pulper Feeder Relationship Specialty Start Date End Date Lucy Elizabeth MD [address] [place] [phone] PCP - General 09/28/08 03/08/21 documented as of this encounter
--- OUTSIDE RECORDS SUMMARY | 2023-10-25 14:42 | XMS_ITS | Encounter Summary ---
Author Organization [facility] Address [address] [place] [address] Care Team Providers Care Deputy Sheriff Name Role Phone Lucy Elizabeth MD Primary Care Provider [phone] Reason for Referral * Consult (Routine/Next Available) - Closed Specialty Diagnoses / Procedures Referred By Rubina perkins Referred To Contact Physical Medicine and Rehab Diagnoses 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HCC-CMS) Naga Melendez MD [address] [address] Naga Melendez MD [address] [place] [address] Referral ID Status Reason Start Date Expiration Date V isits Requested Visits Authorized [id number] Closed Specialty Services Required 12/09/2013 1 1 Question Answer Medication to be Prior Authorized: Botox for next visit Comments Botox 400 units Encounter Details Date Type Department Care Team (Late st Contact Info) Description 12/09/2013 Orders Only [facility] Rehabilitation Therapy - [address] [phone] Naga Melendez MD [address] [place] [phone] 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HCC-CMS) (Primary Dx) Social History Tobacco Use Types Packs/Day Years Used Date Smoking Tobacco: Never Assessed Sex and Gender Information Value Date Recorded Sex Assigned at Not on file Gender Identity Male 06/12/2019 8:16 EDT Sexual Orientation Not on file documented as of this encounter Plan of Treatment Scheduled Referrals Name Type Priority Associated Diagnoses Orde r Schedule AMB MEDICATION PRIOR AUTHORIZATION Outpatient Referral Routine 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[facility]) Ordered: 12/09/2013 documented as of this encounter Visit Diagnoses Diagnosis 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[facility])- Primary Congenital quadriplegia documented in this encounter Care Teams Deputy Sheriff Relationship Specialty Start Date End Date Lucy Elizabeth MD [address] [place] [phone] PCP - General 09/28/08 03/08/21 documented as of this encounter
--- OUTSIDE RECORDS SUMMARY | 2023-10-25 14:42 | XMS_ITS | Encounter Summary ---
Author Organization [facility] Address [address] [place] [address] Care Team Providers Care Mental Health Nurse Name Role Phone Lucy Elizabeth MD Primary Care Provider [phone] Reason for Visit * Reason Onset Date Comments DME 01/07/2014 power wheelchair maintenance/replacement of footrest Encounter Details Date Type Department Care Team (Late st Contact Info) Description 01/07/2014 Telephone [facility] Rehabilitation Therapy - [address] [phone] Naga Melendez MD [address] [place] [address] [address] [place] [address] DME (power wheelchair maintenance/replaceme nt of footrest) Social History Tobacco Use Types Packs/Day Years Used Date Smoking Tobacco: Never Assessed Sex and Gender Information Value Date Recorded Sex Assigned at Not on file Gender Identity Male 06/12/2019 8:16 EDT Sexual Orientation Not on file documented as of this encounter Miscellaneous Notes * Telephone Encounter - Malena Bermudez Nell - 01/07/2014 0828 EST Mr. Gooden called would like prescription for the following 1) Replacement footrests for Janes's power wheelchair <they have searched for days and assume Janes's caregivers must have put them in the trash in error>this is the wheelchair Janes is in almost all the time and his feet are hanging with out the foot rests. 2) Arm rests are worn and they need another set of arm rests. 3) Would Dr. Melendez also include a prescription to have all other necessary maintenance to be performed at the same time so they won't have to request another prescription if there is other work ayaka done. Please mail to parents - [facility] (current [facility] address is correct). Malena Bermudez 01/07/2014 8:32 documented in this encounter Plan of Treatment Not on file documented as of this encounter Visit Diagnoses Not on filedocumented in this encounter Care Teams Mental Health Nurse Relationship Specialty Start Date End Date Lucy Elizabeth MD [address] [place] [phone] PCP - General 09/28/08 03/08/21 documented as of this encounter
--- OUTSIDE RECORDS SUMMARY | 2023-10-25 14:42 | XMS_ITS | Encounter Summary ---
Author Organization [facility] Address [address] [place] [address] Care Team Providers Care Cooker Operator Name Role Phone Lucy Elizabeth MD Primary Care Provider [phone] Encounter Details Date Type Department Care Team (Late st Contact Info) Description 05/25/2017 Historical Results Only [facility] Lab - Main [address] [address] Suyapa Duarte MD [address] [place] [phone] Social History Tobacco Use Types Packs/Day [...] Procedure Name Priority Date/Time Associated Diagnosis Comments THYROID STIM HORMONE POC - [facility] Routine 05/25/2017 14:51 EDT URIC ACID Routine 05/25/2017 11:50 EDT VALPROIC ACID LEVEL Routine 05/25/2017 1 1:50 EDT documented in this encounter Results * THYROID STIM HORMONE POC - [facility] (05/25/2017 14:51 EDT) THYROID STIM HORMONE - [facility] 0.98 0.45 - 5.33 UIU/ML 05/25/2017 14:51 EDT [facility] 05/25/2017 14:5 1 EDT 05/25/2017 14:51 EDT Suyapa Duarte MD CHEMISTRY & BLOOD GA S ORDERABLES [facility] * VALPROIC ACID LEVEL (05/25/2017 11:50 EDT) Pathologist [facility] Valproic Acid 62.2 50 - 100 ug/mL 05/25/2017 18:32 EDT [facility] Comment: Therapeutic Range: 50-100 ug/mL Toxic: ??>120 ug/mL 05/25/2017 11:5 0 EDT 05/25/2017 18:00 EDT Narrative [facility] - 05/25/2017 18:32 EDT Does PT Have a Latex Allergy? NO Suyapa Duarte MD CHEMISTRY & BLOOD GA S ORDERABLES [facility] * URIC ACID (05/25/2017 11:50 EDT) Pathologist [facility] URIC ACID - [facility] 5.8 3.9 - 9.0 mg/dL 05/25/2017 18:32 EDT [facility] 05/25/2017 11:5 0 EDT 05/25/2017 18:00 EDT Narrative [facility] - 05/25/2017 18:32 EDT Does PT Have a Latex Allergy? NO Suyapa Duarte MD CHEMISTRY & BLOOD GA S ORDERABLES [facility] documented in this encounter Visit Diagnoses Not on filedocumented in this encounter Care Teams Cooker Operator Relationship Specialty Start Date End Date Lucy Elizabeth MD [address] [place] [phone] PCP - General 09/28/08 03/08/21 documented as of this encounter
--- OUTSIDE RECORDS SUMMARY | 2023-10-25 14:42 | XMS_ITS | Encounter Summary ---
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[facility]) Naga Melendez MD [address] [place] [address] Referral ID Status Reason Start Date Expiration Date Visits Requested Visits Authorized [id number] Specialty Report Received Specialty Services Required 11/10/2015 1 1 Encounter Details Date Type Department Care Team (Latest Contact Info) Description 11/11/2015 14:30 EDT Office Visit [facility] Physical Medicine & Rehabilitation - [address] [place], [place] [phone] Naga Melendez MD [address] [place] [phone] 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 Yes 11/11/2015 Cognitive Status Response Date of Assessm ent Because of a physical, menta l, or emotional condition, does this person have serious difficulty concentrating, remembering, or making decisions? No 11/11/2015 documented as of this encounter Patient Instructions * Patient Instructions* Naga Melendez MD - 11/11/2015 14:52 EDT Physical Medicine and Rehabilitation Naga Melendez M.D. [address] [place] [phone] Discharge Instructions after Botulinum Toxin Injections Diet [...] for any questions you may have at [phone]. The office is open Sunday-Sunday from 8:00 am to 5:00pm. On weekends or evenings, if you have a serious problem, please call your Alterations Manager, Primary CarePhysician or go to your local Emergency Room. If for any reason a follow-up appointment was not provided or you need to reschedule an appointment, please call our office, the [facility] ([phone] or [phone]) or the [facility] ([phone] or [phone]) if that is where you are seen. 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 Hamstring injections with Botox has been instrumental in allowing Janes to maintain weight-bearing ability for stand pivottransfers. This significantly reduces burden of care and risk of injury. He has not had any negative side effects associated with the injections. Exam today reveals knee flexor tone modified Kate score of 2. He is able to maintain weight-bearing through his legs for stand pivot transfer with caregivers. Procedure Details Consent was obtained after discussing [...] assessment of botulinum toxin effectiveness in 3 months and repeat if appropriate. An After Visit Summary was printed and given to the patient. Follow up visit 02/10/2016 documented in this encounter Plan of Treatment Not on file documented as of this encounter Visit Diagnoses Diagnosis 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HCC-CMS)- Primary Congenital quadriplegia documented in this encounter Care Teams Tumbler Tender Relationship Specialty Start Date End Date Lucy Elizabeth MD [address] [place] [phone] PCP - General 09/28/08 03/08/21 documented as of this encounter
--- OUTSIDE RECORDS SUMMARY | 2023-10-25 14:42 | XMS_ITS | Encounter Summary ---
Author Organization [facility] Address [address] [place] [address] Care Team Providers Care Chief Estimator Name Role Phone Lucy Elizabeth MD Primary Care Provider [phone] Encounter Details Date Type Department Care Team (Late st Contact Info) Description 01/02/2014 Results Only [facility] - Main [address] [id number] Lucy Elizabeth MD [address] [place] [phone] Social History Tobacco Use Types Packs/Day Years Used Date Smoking Tobacco: Never Assessed Sex and Gender Information Value Date Recorded Sex Assigned at Not on file Gender Identity Male 06/12/2019 8:16 EDT Sexual Orientation Not on file documented as of this encounter Plan of Treatment Not on file documented as of this encounter Procedures Procedure Name Priority Date/Time Associated Diagnosis Comments CBC W/PLT & DIFF,POINT OF CARE - [facility] Routine 01/02/2014 12:17 EDT documented in this encounter Results * (ABNORMAL) CBC W/PLT & DIFF,POINT OF CARE [facility] (01/02/2014 12:17 EDT) Gran # 4.90 1.40 - 6.50 x10e3/ul 01/27/2014 12:26 [facility] GRAN % - [facility] 57.2 42.20 - 75.20 % 01/27/2014 12:26 [facility] HEMATOCRIT - [facility] 46.8 35.00 - 60.00 % 01/27/2014 12:26 [facility] HEMOGLOBIN - [facility] 15.8 11.00 - 18.00 g/dl 01/27/2014 12:26 [facility] LYMPH # - [facility] 3.4 1.20 - 3.40 x10e3/ul 01/27/2014 12:26 [facility] LYMPH% - [facility] 39.5 20.50 - 51.10 % 01/27/2014 12:26 [facility] MEAN CORPUSCULAR HGB - [facility] 29.9 27.00 - 31.00 pg 01/27/2014 12:26 [facility] MEAN CORPUSCULAR HGB CONC - [facility] 33.8 33.00 - 37.00 g/dl 01/27/2014 12:26 [facility] MEAN CELL VOLUME - [facility] 88.7 80.00 - 99.90 fl 01/27/2014 12:26 [facility] MONO # - [facility] 0.3 0.10 - 0.60 x10e3/ul 01/27/2014 12:26 [facility] MONO% - [facility] 3.3 1.70 - 9.30 % 01/27/2014 12:26 [facility] MEAN PLATELET VOLUME - [facility] 9.7 7.80 - 11.00 fl 01/27/2014 12:26 [facility] PLATELET COUNT 173 150.00 - 450.00 x10e3/ul 01/27/2014 12:26 [facility] RED BLOOD COUNT - [facility] 5.27 4.00 - 6.00 x10e6/ul 01/27/2014 12:26 [facility] RED CELL DISTRI WIDTH - [facility] 15.3(H) 11.60 - 13.70 % 01/27/2014 12:26 [facility] WHITE BLOOD COUNT - [facility] 8.5 4.50 - 10.50 x10e3/ul 01/27/2014 12:26 [facility] 01/02/2014 12:1 7 EDT 01/02/2014 12:17 EDT Lucy Elizabeth MD CHEMISTRY & BLOOD GA S ORDERABLES [facility] documented in this encounter Visit Diagnoses Not on filedocumented in this encounter Care Teams Chief Estimator Relationship Specialty Start Date End Date Lucy Elizabeth MD [address] [place] [phone] PCP - General 09/28/08 03/08/21 documented as of this encounter
--- OUTSIDE RECORDS SUMMARY | 2023-10-25 14:42 | XMS_ITS | Encounter Summary ---
Author Organization [facility] Address [address] [place] [address] Care Team Providers Care Cyber Systems Operations Specialist Name Role Phone Lucy Elizabeth MD Primary Care Provider [phone] Encounter Details Date Type Department Care Team (Late st Contact Info) Description 05/25/2017 Historical Results Only [facility] - Main [address] [address] Suyapa Duarte MD [address] [place] [phone] Social History Tobacco Use Types Packs/Day [...] Date/Time Associated Diagnosis Comments GLYCOHEMOGLOBIN POC - [facility] Routine 05/25/2017 14:51 EDT documented in this encounter Results * (ABNORMAL) GLYCOHEMOGLOBIN POC - [facility] (05/25/2017 14:51 EDT) Hemoglobin A1c 8.4(H) 4.0 - 6.0 % 05/25/2017 14:51 EDT [facility] AVG CALCULATED GLUCOSE - [facility] 200(H) 60 - 115 MG/DL 05/25/2017 14:51 EDT [facility] 05/25/2017 14:5 1 EDT 05/25/2017 14:51 EDT Suyapa Duarte MD CHEMISTRY & BLOOD GA S ORDERABLES [facility] documented in this encounter Visit Diagnoses Not on filedocumented in this encounter Care Teams Cyber Systems Operations Specialist Relationship Specialty Start Date End Date Lucy Elizabeth MD [address] [place] [phone] PCP - General 09/28/08 03/08/21 documented as of this encounter
--- OUTSIDE RECORDS SUMMARY | 2023-10-25 14:42 | XMS_ITS | Encounter Summary ---
Author Organization [facility] Address [address] [place] [address] Care Team Providers Care Needle Loom Setter Name Role Phone Lucy Elizabeth MD Primary Care Provider [phone] Reason for Referral * Consult (Routine/Next Available) - Specialty Report Received Specialty Diagnoses / Procedures Referred By Contac t Referred To Contact Diagnoses 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[facility]) Naga Melendez MD [address] [place], [place] [address] Referral ID Status Reason Start Date Expiration Date Visits Requested Visits Authorized [id number] Specialty Report Received Specialty Services Required 03/23/2014 06/19/2014 1 1 Question Answer Medication to be Prior Authorized: BOTOX for next visit. 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[facility]) Naga Melendez MD [address] [facility] [address] [place] [phone] Naga Melendez MD [address] [place] [phone] Referral ID Status Reason Start Date Expiration Date Visits Requested Visits Authorized [id number] Specialty Report Received Specialty Services Required 4 06/19/2014 4 4 Encounter Details Date Type Department Care Team (Latest Contact Info) Description 03/23/2014 13:30 EST Office Visit [facility] Therapy - [address] [address] Naga Melendez MD [address] [place] [phone] 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 We have a limited number of appointment slots available each week. We ask that you give us as much advance notice as possible so that appointments can be made available for patients on our waiting lists. Our practice policy states that will not reschedule an appointment if you cancel or no-show for three consecutive appointments. Repeated absences interfere with our ability to provide care in a timely manner for all of our patients. Physical Medicine and Rehabilitation Naga Melendez M.D. [address] [place] [phone] Discharge Instructions after Botulinum Toxin Injections Diet [...] for any questions you may have at [phone] x [phone]. The office is open Sunday-Sunday from 8:00 am to 5:00pm. On weekends or evenings, if you have a serious problem, please call your Supervisor Underwriting Clerks, Primary CarePhysician or go to your local Emergency Room. If for any reason a follow-up appointment was not provided or you need to reschedule an appointment, please call our office, the [facility] ([phone] or [phone]) or the [facility] ([phone] or [phone]) if that is where you are seen. 410ss documented in this encounter Discharge Disposition Disposition Code Departure Means Destination Auto Discharge documented in this encounter Progress Notes * Viri Sung RN - 03/23/2014 1403 EST Botulinum toxin Lot #: [id number] Botulinum toxin expiration date: Oct 2016 Botulinum toxin [facility] # [id number] Total Botulinum toxin units injected: 400 Total Botulinum toxin units wasted: 0 * Naga Melendez MD - 03/23/2014 1400 EST Botulinum Toxin Injection Procedure Note Pre-Procedure Diagnosis: Spastic tetraplegia CP Indications: spasticity that adversely impacts to do stand pivot transfers. Norberto reports consistent benefits from doing the injections into his hamstrings to make it easier for him to bear weight through his legs, maintaining knee extension so that he can do stand pivot transfers with assistance in and out of his wheelchair. No negative side effects have been associated with the injections in the past. Examination reveals a crouched standing pattern. Tone in the hamstrings, modified Kate score of2 today. Procedure Details Consent was obtained after discussing possible side effects and complications including risk for systemic absorption, generalized weakness, swallowing dysfunction, and respiratory suppression. The limb(s) for injection were identified and a time out called to re-identify the correct limb forinjection. After prepping the skin with alcohol overlying the following muscles, botlinum toxin wasinjected intramuscularly using EMG guidance as follows. Hamstring: Units Right 200 Left 200 Total botox units injected: 400 Total botox units wasted: 0 Plan: Return to clinic for assessment of botulinum toxin effectiveness in 6 weeks. An After Visit Summary was printed and given to the patient. Follow up visit 06/18/2014 documented in this encounter Plan of Treatment Scheduled Referrals Name Type Priority Associated Diagnoses Orde r Schedule AMB MEDICATION PRIOR AUTHORIZATION Outpatient Referral Routine 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[facility]) Ordered: 03/23/2014 documented as of this encounter Visit Diagnoses Diagnosis 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[facility])- Primary Congenital quadriplegia documented in this encounter Discontinued Medications Medication Sig Discontinue Reason Start Date End Da te COD LIVER OIL ORAL Take 400 mg by mouth daily. A&d 10,000IU/400mg Patient Stopped Taking 03/23/2014 documented as of this encounter Historical Medications * This list may reflect changes made after this encounter. Medication Sig Dispensed Refills Start Date End Date OMEGA-3 FATTY ACIDS/FISH OIL (OMEGA 3 FISH OIL ORAL) Take by mouth 2 times daily. added in this encounter Care Teams Needle Loom Setter Relationship Specialty Start Date End Date Lucy Elizabeth MD [address] [place] [phone] PCP - General 09/28/08 03/08/21 documented as of this encounter
--- OUTSIDE RECORDS SUMMARY | 2023-10-25 14:42 | XMS_ITS | Encounter Summary ---
Author Organization [facility] Address [address] [place] [address] Care Team Providers Care Candy Attendant Name Role Phone Lucy Elizabeth MD Primary Care Provider [phone] Encounter Details Date Type Department Care Team (Late st Contact Info) Description 05/25/2017 Historical Results Only [facility] Lab - Main [address] [address] Suyapa Duarte MD [address] [place] [phone] Social History Tobacco Use Types Packs/Day [...] Priority Date/Time Associated Diagnosis Comments COMPREHENSIVE METABOLIC POC - [facility] Routine 05/25/2017 14:51 EDT documented in this encounter Results * (ABNORMAL) COMPREHENSIVE METABOLIC POC - [facility] (05/25/2017 14:51 EDT) Albumin % 4.9 3.50 - 5.00 G/DL 05/25/2017 14:51 [facility] ALKALINE PHOSPHATASE - [facility] 88 38.00 - 126.00 U/L 05/25/2017 14:51 [facility] BILIRUBIN TOTAL 0.5 0.20 - 1.30 MG/DL 05/25/2017 14:51 [facility] BUN - [facility] 20 7.00 - 20.00 MG/DL 05/25/2017 14:51 [facility] CALCIUM - [facility] 10.7(H) 8.50 - 10.50 MG/DL 05/25/2017 14:51 [facility] Chloride 99 98.00 - 107.00 MMOL/L 05/25/2017 14:51 [facility] CO2 Total 24 22.00 - 30.00 MMOL/L 05/25/2017 14:51 [facility] CREATININE 0.9 0.70 - 1.50 MG/DL 05/25/2017 14:51 [facility] Anion Gap 21(H) 7 - 17 MMOL/L 05/25/2017 14:51 [facility] GLUCOSE - [facility] 150(H) 70.00 - 100.00 MG/DL 05/25/2017 14:51 [facility] Potassium 4.6 3.50 - 5.10 MMOL/L 05/25/2017 14:51 [facility] Sodium 144 137.00 - 145.00 MMOL/L 05/25/2017 14:51 [facility] TOTAL PROTEIN - [facility] 8.0 6.30 - 8.20 G/DL 05/25/2017 14:51 [facility] SGOT/AST - [facility] 33 15.00 - 46.00 U/L 05/25/2017 14:51 [facility] SGPT/ALT - [facility] 41 13.00 - 69.00 U/L 05/25/2017 14:51 [facility] 05/25/2017 14:5 1 EDT 05/25/2017 14:51 EDT Suyapa Duarte MD CHEMISTRY & BLOOD GA S ORDERABLES [facility] documented in this encounter Visit Diagnoses Not on filedocumented in this encounter Care Teams Candy Attendant Relationship Specialty Start Date End Date Lucy Elizabeth MD [address] [place] [phone] PCP - General 09/28/08 03/08/21 documented as of this encounter
--- OUTSIDE RECORDS SUMMARY | 2023-10-25 14:42 | XMS_ITS | Encounter Summary ---
Author Organization [facility] Address [address] [place] [address] Care Team Providers Care Lithoplate Maker Name Role Phone Lucy Elizabeth MD Primary Care Provider [phone] Encounter Details Date Type Department Care Team (Late st Contact Info) Description 01/02/2014 Results Only [facility] - [address] [phone] Lucy Elizabeth MD [address] [place] [phone] Social History Tobacco Use Types Packs/Day [...] Associated Diagnosis Comments COMPREHENSIVE METABOLIC POC - [facility] Routine 01/02/2014 12:17 EDT documented in this encounter Results * (ABNORMAL) COMPREHENSIVE METABOLIC POC - [facility] (01/02/2014 12:17 EDT) Albumin % 4.5 3.50 - 5.00 g/dl 01/27/2014 12:26 [facility] ALKALINE PHOSPHATASE - [facility] 91 38.00 - 126.00 u/l 01/27/2014 12:26 [facility] BILIRUBIN TOTAL 0.4 0.20 - 1.30 mg/dl 01/27/2014 12:26 [facility] BUN - [facility] 16 7.00 - 20.00 mg/dl 01/27/2014 12:26 [facility] CALCIUM - [facility] 10.3 8.50 - 10.50 mg/dl 01/27/2014 12:26 [facility] Chloride 101 98.00 - 107.00 mmol/l 01/27/2014 12:26 [facility] CO2 Total 25 22.00 - 30.00 mmol/l 01/27/2014 12:26 [facility] CREATININE 0.8 0.70 - 1.50 mg/dl 01/27/2014 12:26 [facility] GLUCOSE - [facility] 104(H) 70.00 - 100.00 mg/dl 01/27/2014 12:26 [facility] Potassium 4.6 3.50 - 5.10 mmol/l 01/27/2014 12:26 [facility] Sodium 145 137.00 - 145.00 mmol/l 01/27/2014 12:26 [facility] TOTAL PROTEIN - [facility] 7.4 6.30 - 8.20 g/dl 01/27/2014 12:26 [facility] SGOT/AST - [facility] 39 15.00 - 46.00 u/l 01/27/2014 12:26 [facility] SGPT/ALT - [facility] 33 13.00 - 69.00 u/l 01/27/2014 12:26 [facility] 01/02/2014 12:1 7 EDT 01/02/2014 12:17 EDT Lucy Elizabeth MD CHEMISTRY & BLOOD GA S ORDERABLES [facility] documented in this encounter Visit Diagnoses Not on filedocumented in this encounter Care Teams Lithoplate Maker Relationship Specialty Start Date End Date Lucy Elizabeth MD [address] [place] [phone] PCP - General 09/28/08 03/08/21 documented as of this encounter
--- OUTSIDE RECORDS SUMMARY | 2023-10-25 14:42 | XMS_ITS | Encounter Summary ---
Author Organization [facility] Address [address] [place] [address] Care Team Providers Care Physician Practice Market Manager Name Role Phone Lucy Elizabeth MD Primary Care Provider [phone] Reason for Referral * Consult (Routine/Next Available) - Specialty Report Received Specialty Diagnoses / Procedures Referred By Rubina perkins Referred To Contact Diagnoses 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[facility]) Naga Melendez MD [address] [place] [phone] Referral ID Status Reason Start Date Expiration Date Visits Requested Visits Authorized [id number] Specialty Report Received Specialty Services Required 06/18/2014 1 1 Question Answer Medication to be Prior Authorized: Botox for next visit Comments Botox 400 units Reason for Visit * Reason Comments Botox Injection Encounter Details Date Type Department Care Team (Latest Contact Info) Description 06/18/2014 14:00 EDT Office Visit [facility] Physical Medicine & Rehabilitation - [address] [place], [place] [phone] Naga Melendez MD [address] [place] [phone] 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) Social History Tobacco Use Types Packs/Day Years Used Date Smoking Tobacco: Never Assessed Sex and Gender Information Value Date Recorded Sex Assigned at Not on file Gender Identity Male 06/12/2019 8:16 EDT Sexual Orientation Not on file documented as of this encounter Progress Notes * José Luis Rm RN - 06/18/2014 9118 EDT Botulinum toxin Lot #: [id number] Botulinum toxin expiration date: Botulinum toxin [facility] # [id number] Total Botulinum toxin units injected: 400 Total Botulinum toxin units wasted: 0 * Naga Melendez MD - 06/18/2014 3669 EDT Botulinum Toxin Injection Procedure Note Pre-Procedure Diagnosis: Spastic tetraplegia Indications: spasticity that adversely impacts ability to due stand pivot transfers. Janes feels that these injections have consistently allowed him to maintain the ability to do independent or contact guard, stand pivot transfers in and out of his wheelchair with caregivers. He notes no negative side effects from the injections whatsoever. He notes that as the injections wear off, he starts to get tighter and has a difficult time bearing weight through his legs to do these transfers. He reports no other new issues since the last time I saw him. He is here with his parents today whohe has not seen in a couple months because they have been doing some traveling. On examination today, he has significant general spasticity. In the lower extremities, he has a slight windswept hip position towards the right side. He has hamstring tone that is modified Kate score of 3. Procedure Details Consent was obtained after discussing [...] clinic for assessment of botulinum toxin effectiveness and repeat in 3 months. An After Visit Summary was printed and given to the patient. Follow up visit 10/05/2014 documented in this encounter Plan of Treatment Scheduled Referrals Name Type Priority Associated Diagnoses Orde r Schedule AMB MEDICATION PRIOR AUTHORIZATION Outpatient Referral Routine 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[facility]) Ordered: 06/18/2014 documented as of this encounter Visit Diagnoses Diagnosis 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[facility])- Primary Congenital quadriplegia documented in this encounter Discontinued Medications Medication Sig Discontinue Reason Start Date End Da te levothyroxine (SYNTHROID) 125 mcg tablet Take 125 mcg by mouth daily. Dose adjustment 06/18/2014 documented as of this encounter Historical Medications * This list may reflect changes made after this encounter. Medication Sig Dispensed Refills Start Date End Date levothyroxine (SYNTHROID) 112 mcg tablet Take 1 Tablet by mouth daily. guaiFENesin (MUCINEX) 600 mg SR tablet Take 1,200 mg by mouth 2 times daily as needed 02/09/2015 added in this encounter Care Teams Physician Practice Market Manager Relationship Specialty Start Date End Date Lucy Elizabeth MD [address] [place] [phone] PCP - General 09/28/08 03/08/21 documented as of this encounter
--- OUTSIDE RECORDS SUMMARY | 2023-10-25 14:42 | XMS_ITS | Encounter Summary ---
Author Organization [facility] Address [address] [place] [address] Care Team Providers Care Power Reactor Supervisor Name Role Phone Lucy Elizabeth MD Primary Care Provider [phone] Encounter Details Date Type Department Care Team (Late st Contact Info) Description 11/22/2017 Historical Results Only [facility] - [facility] Lab - Main [address] [address] Suyapa Duarte MD [address] [place] [phone] Social History Tobacco Use Types Packs/Day [...] Priority Date/Time Associated Diagnosis Comments MAGNESIUM Routine 11/22/2017 8:25 EDT documented in this encounter Results * MAGNESIUM (11/22/2017 8:25 EDT) Magnesium 1.80 1.7 - 2.8 mg/dL 11/22/2017 13:33 EDT [facility] 11/22/2017 8:25 EDT 11/22/2017 12:04 EDT Narrative [facility] - 11/27/2017 6:14 EDT AOT: 11/27/17 0606: LIPID Suyapa Duarte MD CHEMISTRY & BLOOD GA S ORDERABLES [facility] documented in this encounter Visit Diagnoses Not on filedocumented in this encounter Care Teams Power Reactor Supervisor Relationship Specialty Start Date End Date Lucy Elizabeth MD [address] [place] [phone] PCP - General 09/28/08 03/08/21 documented as of this encounter
--- OUTSIDE RECORDS SUMMARY | 2023-10-25 14:42 | XMS_ITS | Encounter Summary ---
Author Organization [facility] Address [address] [place] [address] Care Team Providers Care Pulp Mill Operator Name Role Phone Lucy Elizabeth MD Primary Care Provider [phone] Encounter Details Date Type Department Care Team (Late st Contact Info) Description 01/02/2014 Results Only [facility] - [address] [phone] Lucy Elizabeth MD [address] [place] [phone] Social History Tobacco Use Types Packs/Day Years Used Date Smoking Tobacco: Never Assessed Sex and Gender Information Value Date Recorded Sex Assigned at Not on file Gender Identity Male 06/12/2019 8:16 EDT Sexual Orientation Not on file documented as of this encounter Plan of Treatment Not on file documented as of this encounter Procedures Procedure Name Priority Date/Time Associated Diagnosis Comments POCT CHOLESTEROL LDL ([facility]) Routine 01/02/2014 12:17 EDT documented in this encounter Results * POCT CHOLESTEROL LDL ([facility]) (01/02/2014 12:17 EDT) LDL CHOLESTEROL - [facility] 65 60.00 - 100.00 mg/dl 01/27/2014 12:26 EST [facility] 01/02/2014 12:1 7 EDT 01/02/2014 12:17 EDT Lucy Elizabeth MD POINT OF CARE TEST O RDERABLES [facility] documented in this encounter Visit Diagnoses Not on filedocumented in this encounter Care Teams Pulp Mill Operator Relationship Specialty Start Date End Date Lucy Elizabeth MD [address] [place] [phone] PCP - General 09/28/08 03/08/21 documented as of this encounter
--- OUTSIDE RECORDS SUMMARY | 2023-10-25 14:42 | XMS_ITS | Encounter Summary ---
Author Organization [facility] Address [address] [place] [address] Care Team Providers Care Live In Caregiver Name Role Phone Lucy Elizabeth MD Primary Care Provider [phone] Encounter Details Date Type Department Care Team (Late st Contact Info) Description 09/25/2016 Historical Results [facility] Lab - Main [address] [address] Lucy Elizabeth MD [address] [place] [phone] Social History Tobacco Use Types Packs/Day [...] Date/Time Associated Diagnosis Comments URIC ACID Routine 09/25/2016 8:30 EDT HEMOGLOBIN A1C Routine 09/25/2016 8:30 EDT documented in this encounter Results * (ABNORMAL) HEMOGLOBIN A1C (09/25/2016 8:30 EDT) Hemoglobin A1c 6.3(H) 4.0 - 6.0 % 09/25/2016 11:17 EDT [facility] Est Avg Glucose 134 mg/dL 7 11:17 EDT [facility] 09/25/2016 8:30 EDT 09/25/2016 9:34 EDT Lucy Elizabeth MD CHEMISTRY & BLOOD GA S ORDERABLES Performing Organization Address City/[facility]/ZIP Co de Phone Number [facility] * URIC ACID (09/25/2016 8:30 EDT) URIC ACID - [facility] 5.5 2.6 - 7.2 mg/dl 09/25/2016 10:41 EDT [facility] 09/25/2016 8:30 EDT 09/25/2016 9:34 EDT Lucy Elizabeth MD CHEMISTRY & BLOOD GA S ORDERABLES [facility] documented in this encounter Visit Diagnoses Not on filedocumented in this encounter Care Teams Live In Caregiver Relationship Specialty Start Date End Date Lucy Elizabeth MD [address] [place] [phone] PCP - General 09/28/08 03/08/21 documented as of this encounter
--- OUTSIDE RECORDS SUMMARY | 2023-10-25 14:42 | XMS_ITS | Encounter Summary ---
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 # 8224-9116-79 Total Botulinum toxin units injected: 400 Total Botulinum toxin units wasted:0 * Naga Melendez MD - 02/10/2016 1430 EST Botulinum Toxin Injection Procedure Note Pre-Procedure Diagnosis: Spastic tetraplegia Indications: spasticity that adversely impacts Weightbearing and transfers. Pradeep has continue to benefit from Botox injections into the hamstrings to reduce knee flexor tone. This allows him to more effectively bear weight through his legs for dressing and for transfers. They also note that it improves positioning so that when he is in bed they can get his legs elevated to reduce the chronic edema that he has in his feet. As the Botox wears off they noticed that he is not able to maintain weightbearing as effectively and they have a harder time getting his legs in an extended position to elevate them at night. Examination reveals knee flexor tone modified Kate score of 2. Procedure Details Consent was obtained after discussing [...] given to the patient. Follow up visit 05/11/2016 documented in this encounter Plan of Treatment Not on file documented as of this encounter Visit Diagnoses Diagnosis 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[facility])- Primary Congenital quadriplegia documented in this encounter Historical Medications * This list may reflect changes made after this encounter. Medication Sig Dispensed Refills Start Date End Date botulinum toxin Type A (BOTOX) 100 unit injection Inject into the muscle. added in this encounter Care Teams Survey Worker Relationship Specialty Start Date End Date Lucy Elizabeth MD [address] [place] [phone] PCP - General 09/28/08 03/08/21 documented as of this encounter
--- OUTSIDE RECORDS SUMMARY | 2023-10-25 14:42 | XMS_ITS | Encounter Summary ---
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[facility]) Naga Melendez MD [address] [place] [phone] Referral ID Status Reason Start Date Expiration Date Visits Requested Visits Authorized [id number] Specialty Report Received Specialty Services Required 05/11/2015 1 1 Question Answer Medication to be Prior Authorized: Follow up in 3 months Comments Botox 400 units Reason for Visit * Reason Comments Botox Injection * Consult (Routine/Next Available) - Specialty Report Received Specialty Diagnoses / Procedures Referred By Contac t Referred To Contact Diagnoses 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[facility]) Naga Melendez MD [address] [place] [phone] Referral ID Status Reason Start Date Expiration Date Visits Requested Visits Authorized [id number] Specialty Report Received Specialty Services Required 02/09/2015 1 1 Encounter Details Date Type Department Care Team (Latest Contact Info) Description 05/11/2015 13:30 EST Office Visit [facility] Physical Medicine & Rehabilitation - [place] [address] Naga Melendez MD [address] [place] [phone] 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 Yes 05/11/2015 Cognitive Status Response Date of Assessm ent Because of a physical, menta l, or emotional condition, does this person have serious difficulty concentrating, remembering, or making decisions? No 05/11/2015 documented as of this encounter Discharge Diagnoses Diagnosis G80.8 Other cerebral palsy-G80.8[ICD-10-CM] documented in this encounter Patient Instructions * Patient Instructions* Naga Melendez MD - 05/11/2015 13:45 EST Physical Medicine and Rehabilitation Naga Melendez M.D. [address] [place] [phone] Discharge Instructions after Botulinum Toxin Injections Diet [...] for any questions you may have at [phone] x 2. The office is open Sunday-Sunday from 8:00 am to 5:00pm. On weekends or evenings, if you have a serious problem, please call your Salesperson Automobiles, Primary CarePhysician or go to your local Emergency Room. If for any reason a follow-up appointment was not provided or you need to reschedule an appointment, please call our office, the [facility] ([phone] or [phone]) or the [facility] ([phone] or [phone]) if that is where you are seen. 06/12ss documented in this encounter Discharge Disposition Disposition Code Departure Means Destination Auto Discharge documented in this encounter Progress Notes * Naga Melendez MD - 05/11/2015 1402 EST Botulinum Toxin Injection Procedure Note Pre-Procedure Diagnosis: Spastic tetraplegia Indications: spasticity that adversely impacts weightbaring transfers. Blessing has continued to do well with Botox injections and hamstrings to allow him to do stand pivot transfers and reduce progressive knee flexion contracture. He has never had any negative side effects from the injections. Examination reveals knee flexor contracture at around 30?? bilaterally. Tone modified Kate score of 3 today. Procedure Details Consent was obtained after [...] assessment of botulinum toxin effectiveness and repeat if appropriate in 3 months. An After Visit Summary was printed and given to the patient. * José Luis Rm, RN - 05/11/2015 1359 EST Botulinum toxin Lot #: [id number] Botulinum toxin expiration date: Botulinum toxin [facility] # [id number] Total Botulinum toxin units injected: 400 Total Botulinum toxin units wasted: 0 documented in this encounter Plan of Treatment Scheduled Referrals Name Type Priority Associated Diagnoses Orde r Schedule AMB MEDICATION PRIOR AUTHORIZATION Outpatient Referral Routine 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[facility]) Ordered: 05/11/2015 documented as of this encounter Visit Diagnoses Diagnosis 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[facility])- Primary Congenital quadriplegia documented in this encounter Care Teams Track Liner Operator Relationship Specialty Start Date End Date Lucy Elizabeth MD [address] [place] [phone] PCP - General 09/28/08 03/08/21 documented as of this encounter
--- OUTSIDE RECORDS SUMMARY | 2023-10-25 14:42 | XMS_ITS | Encounter Summary ---
Author Organization [facility] Address [address] [place] [address] Care Team Providers Care Moisture Meter Operator Name Role Phone Lucy Elizabeth MD Primary Care Provider [phone] Encounter Details Date Type Department Care Team (Late st Contact Info) Description 05/05/2016 Historical Results Only [facility] Lab - Main [address] [address] Lucy Elizabeth MD [address] [place] [phone] Social History Tobacco Use Types Packs/Day [...] Procedure Name Priority Date/Time Associated Diagnosis Comments COMPLETE BLOOD COUNT WITH DIFFERENTIAL (AUTO) Routine 05/05/2016 8:45 EST T3, TOTAL Routine 05/05/2016 8:45 EST TSH Routine 05/05/2016 8:45 EST T4 FREE Routine 05/05/2016 8:45 EST HEMOGLOBIN A1C Routine 05/05/2016 8:45 EST VALPROIC ACID LEVEL Routine 05/05/2016 8 :45 EST LIPID PROFILE (INCLUDES CHOLESTEROL, TRIGLYCERIDES, HDL, LDL) Routine 05/05/2016 8:45 EST COMPREHENSIVE METABOLIC PANEL (CMP) Routine 05/05/2016 8:45 EST documented in this encounter Results * (ABNORMAL) HEMOGLOBIN A1C (05/05/2016 8:45 EST) Hemoglobin A1c 6.5(H) 4.0 - 6.0 % 05/05/2016 12:36 EST [facility] Est Avg Glucose 140 mg/dL 7 12:36 EST [facility] 05/05/2016 8:45 EST 05/05/2016 10:21 EST Lucy Elizabeth MD CHEMISTRY & BLOOD GA S ORDERABLES Performing Organization Address [facility] Co de Phone Number [facility] * VALPROIC ACID LEVEL (05/05/2016 8:45 EST) Valproic Acid 84.8 05/05/2016 11:01 EST [facility] Comment: Date and Time for last dose: Not Available. ?? Therapeutic Range: 50-100 ug/mL Toxic: ??>120 ug/mL 05/05/2016 8:45 EST 05/05/2016 10:21 EST Lucy Elizabeth MD CHEMISTRY & BLOOD GA S ORDERABLES Performing Organization Address City/[facility]/ZIP Co de Phone Number [facility] * T3, TOTAL (05/05/2016 8:45 EST) TOTAL T3, External 0.91 0.60 - 1.81 ng/mL 05/05/2016 10:56 EST [facility] 05/05/2016 8:45 EST 05/05/2016 10:21 EST Lucy Elizabeth MD CHEMISTRY & BLOOD GA S ORDERABLES Performing Organization Address [facility]/ZIP Co de Phone Number [facility] * TSH (05/05/2016 8:45 EST) Pathologist [facility] THYROID STIM HORMONE - [facility] 0.93 0.35 - 5.50 uIU/mL 05/05/2016 10:56 [facility] 05/05/2016 8:45 EST 05/05/2016 10:21 EST Lucy Elizabeth MD CHEMISTRY & BLOOD GA S ORDERABLES Performing Organization Address City/[facility] Co de Phone Number [facility] * (ABNORMAL) LIPID PROFILE (INCLUDES CHOLESTEROL, TRIGLYCERIDES, HDL, LDL) (05/05/2016 8:45 EST) Pathologist [facility] Triglyceride 204(H) 35 - 150 mg/dL 05/05/2016 10:50 [facility] Cholesterol 130 120 - 200 mg/dL 05/05/2016 10:50 [facility] Chol/HDL Ratio 3.1 0 - 5.0 05/05/2016 10:50 [facility] Comment: DESIRABLE RATIO IS LESS THAN 4.1 PATIENTS ARE CONSIDERED AT RISK: WOMEN RATIO >5 MEN RATIO >6 FASTING? - [facility] Unknown 7 10:24 [facility] HDL 41 40 - 60 mg/dL 05/05/2016 10:50 [facility] LDL CHOLESTEROL - [facility] 48(L) 60 - 100 mg/dL 05/05/2016 10:50 [facility] Non HDL Cholesterol 89 mg/dl 05/05/2016 10:50 [facility] Comment: Desirable: ?Less than 130 Borderline High: ??130-159 High: ? 160-189 Very High: ?Greater than or equal to 190 05/05/2016 8:45 EST 05/05/2016 10:21 EST Lucy Elizabeth MD CHEMISTRY & BLOOD GA S ORDERABLES Performing Organization Address [facility]/ZIP Co de Phone Number [facility] * T4 FREE (05/05/2016 8:45 EST) FREE T4 [facility] 1.45 0.89 - 1.76 ng/dL 05/05/2016 10:55 [facility] 05/05/2016 8:45 EST 05/05/2016 10:21 EST Lucy Elizabeth MD CHEMISTRY & BLOOD GA S ORDERABLES Performing Organization Address City/[facility] Co de Phone Number [facility] * (ABNORMAL) COMPREHENSIVE METABOLIC PANEL (CMP) (05/05/2016 8:45 EST) Albumin % 4.1 3.4 - 5.0 g/dL 05/05/2016 10:50 [facility] ALKALINE PHOSPHATASE - [facility] 75 42 - 122 U/L 05/05/2016 10:50 [facility] BILIRUBIN TOTAL 0.4 0.0 - 1.0 mg/dL 05/05/2016 10:50 [facility] BUN - [facility] 8 7 - 18 mg/dL 05/05/2016 10:50 [facility] CALCIUM - [facility] 9.6 8.5 - 10.1 mg/dL 05/05/2016 10:50 [facility] Chloride 103 98 - 107 mEq/L 05/05/2016 10:50 [facility] CO2 Total 27 21 - 32 mEq/L 05/05/2016 10:50 [facility] CREATININE 0.83 0.5 - 1.3 mg/dL 05/05/2016 10:50 [facility] eGFR >60 05/05/2016 10:50 [facility] Comment: Chronic renal impairment is defined as GFR <60 Multiply result by 1.210 for patients. Anion Gap 11 5 - 15 05/05/2016 10:50 [facility] GLUCOSE - [facility] 113(H) 70 - 100 mg/dL 05/05/2016 10:50 [facility] Potassium 4.8 3.5 - 5.0 mEq/L 05/05/2016 10:50 [facility] Sodium 141 135 - 145 mEq/L 05/05/2016 10:50 [facility] TOTAL PROTEIN - [facility] 7.7 6.4 - 8.2 gm/dl 05/05/2016 10:50 [facility] SGOT/AST - [facility] 18 10 - 37 U/L 05/05/2016 10:50 [facility] SGPT/ALT - [facility] 31 12 - 78 U/L 05/05/2016 10:50 [facility] 05/05/2016 8:45 EST 05/05/2016 10:21 EST Lucy Elizabeth MD CHEMISTRY & BLOOD GA S ORDERABLES [facility] * (ABNORMAL) COMPLETE BLOOD COUNT WITH DIFFERENTIAL (AUTO) (05/05/2016 8:45 EST) ABSOLUTE NEUTROPHIL COUN - [facility] 4.11 1.7 - 7.0 10e3/ul 05/05/2016 10:40 [facility] BASO # - [facility] 0.03 0.0 - 0.3 10e3/uL 05/05/2016 10:40 [facility] BASO % - [facility] 0 0 - 2 % 05/05/2016 10:40 [facility] EOS # - [facility] 0.10 0.05 - 0.5 10e3/uL 05/05/2016 10:40 [facility] EOS % - [facility] 1 0 - 5 % 05/05/2016 10:40 [facility] GRAN % - [facility] 44 40 - 80 % 05/05/2016 10:40 [facility] HEMATOCRIT - [facility] 44.4 36.0 - 52.0 % 05/05/2016 10:40 [facility] HEMOGLOBIN - [facility] 14.9 13.7 - 17.5 g/dl 05/05/2016 10:40 [facility] IG# - [facility] 0.04 0 - 0.07 10e3/uL 05/05/2016 10:40 [facility] IG% - [facility] 0.4 0 - 0.9 % 05/05/2016 10:40 [facility] LYMPH # - [facility] 4.55(H) 0.9 - 2.9 10e3/uL 05/05/2016 10:40 [facility] LYMPH% - [facility] 49(H) 20 - 40 % 05/05/2016 10:40 [facility] MEAN CORPUSCULAR HGB - [facility] 30.0 26 - 34 pg 05/05/2016 10:40 [facility] MEAN CORPUSCULAR HGB CONC - [facility] 33.6 31 - 36 g/dL 05/05/2016 10:40 [facility] MEAN CELL VOLUME - [facility] 89.3 77 - 100 fl 05/05/2016 10:40 [facility] MONO # - [facility] 0.51 0.3 - 0.9 10e3/uL 05/05/2016 10:40 [facility] MONO% - [facility] 6 0 - 12 % 05/05/2016 10:40 [facility] PLATELET COUNT 205 150 - 400 10e3/ul 05/05/2016 10:40 [facility] RED BLOOD COUNT - [facility] 4.97 4.3 - 5.7 10e6/ul 05/05/2016 10:40 [facility] RED CELL DISTRI WIDTH - [facility] 15.8(H) 11.8 - 15.6 % 05/05/2016 10:40 [facility] WHITE BLOOD COUNT - [facility] 9.3 3.5 - 10.5 10e3/ul 05/05/2016 10:40 [facility] 05/05/2016 8:45 EST 05/05/2016 10:21 EST Lucy Elizabeth MD HEMATOLOGY & PF4 ORD ERABLES Performing Organization Address City/State/[facility] Co de Phone Number [facility] documented in this encounter Visit Diagnoses Not on filedocumented in this encounter Care Teams Moisture Meter Operator Relationship Specialty Start Date End Date Lucy Elizabeth MD [address] [place] [phone] PCP - General 09/28/08 03/08/21 documented as of this encounter
--- OUTSIDE RECORDS SUMMARY | 2023-10-25 14:42 | XMS_ITS | Encounter Summary ---
Author Organization [facility] Address [address] [place] [address] Care Team Providers Care Supplier Quality Name Role Phone Lucy Elizabeth MD Primary Care Provider [phone] Encounter Details Date Type Department Care Team (Late st Contact Info) Description 11/22/2017 Historical Results Only [facility] - [facility] Lab - Main [address] [phone] Suyapa Duarte MD [address] [place] [phone] Social History Tobacco Use Types Packs/Day [...] Procedure Name Priority Date/Time Associated Diagnosis Comments HEPATIC FUNCTION PANEL (ALB,ALK PHOS,ALT,AST,DBIL,T OT MALINDA,TOT PROT) Routine 11/22/2017 8:25 EDT documented in this encounter Results * HEPATIC FUNCTION PANEL (ALB,ALK PHOS,ALT,AST,DBIL,TOT MALINDA,TOT PROT) (11/22/2017 8:25 EDT) BILIRUBIN DIRECT CALC - [facility] 0.0 0.0 - 0.4 mg/dL 11/22/2017 13:33 EDT [facility] Unconjugated Bilirubin 0.4 0.0 - 1.1 mg/dL 11/22/2017 13:33 EDT [facility] 11/22/2017 8:25 EDT 11/22/2017 12:04 EDT Narrative [facility] - 11/27/2017 6:14 EDT AOT: 11/27/17 0606: LIPID Suyapa Duarte MD CHEMISTRY & BLOOD GA S ORDERABLES [facility] documented in this encounter Visit Diagnoses Not on filedocumented in this encounter Care Teams Supplier Quality Relationship Specialty Start Date End Date Lucy Elizabeth MD [address] [place] [phone] PCP - General 09/28/08 03/08/21 documented as of this encounter
--- OUTSIDE RECORDS SUMMARY | 2023-10-25 14:42 | XMS_ITS | Encounter Summary ---
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) Social History Tobacco Use Types Packs/Day Years Used Date Smoking Tobacco: Former Smokeless Tobacco: Current Sex and Gender Information Value Date Recorded Sex Assigned at Not on file Gender Identity Male 06/12/2019 8:16 EDT Sexual Orientation Not on file documented as of this encounter Last Filed Vital Signs Vital Sign Reading Time Taken Comments Blood Pressure - - Pulse - - Temperature - - Respiratory Rate - - Oxygen Saturation - - Inhaled Oxygen Concentration - - Weight 68.9 [...] * Patient Instructions* Naga Melendez MD - 05/10/2016 16:00 EST Physical Medicine and Rehabilitation Naga Melendez M.D. [address] [place] [phone] Discharge Instructions after Botulinum Toxin Injections Diet [...] for any questions you may have at [phone] x 2. The office is open Sunday-Sunday from 8:00 am to 5:00pm. On weekends or evenings, if you have a serious problem, please call your Foreclosure Paralegal, Primary CarePhysician or go to your local Emergency Room. If for any reason a follow-up appointment was not provided or you need to reschedule an appointment, please call our office, the [facility] ([phone] or [phone]) or the [facility] ([phone] or [phone]) if that is where you are seen. 06/12ss documented in this encounter Progress Notes * José Luis Rm, RN - 05/10/2016 1600 EST Botulinum toxin Lot #: [id number] Botulinum toxin expiration date: Botulinum toxin [facility] # [id number] Total Botulinum toxin units injected: 400 Total Botulinum toxin units wasted: 0 * Naga Melendez MD - 05/10/2016 1600 EST Botulinum Toxin Injection Procedure Note Pre-Procedure Diagnosis: Spastic tetraplegia Indications: spasticity that adversely impacts Weightbearing for transfers. isac has continue to benefit from Botox injections into the hamstrings to reduce knee flexor tone allowing him greater ease and consistency with bearing weight through his legs for transfers. Without the injections his hamstring tone makes it difficult for him to maintain knee extension and he becomes more dependent on caregivers for transfers. He is tolerated the injections without any side effects area he does note as they wear off that it is more difficult for him to continue his weightbearing and is therefore requesting repeat injections today. He is accompanied by both of his parents today. Exam: Isac continues to have significant lower extremity tone. Particularly at his knee flexors tone modified Kate score of 3. He has stable knee flexion contractures at around 30?? Procedure Details Consent was obtained after discussing [...] 400 Total botox units wasted: 0 Plan: I will plan on seeing him back in about 3 months for reevaluation and potential repeat injections. An After Visit Summary was printed and given to the patient. documented in this encounter Plan of Treatment Not on file documented as of this encounter Visit Diagnoses Diagnosis 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[facility])- Primary Congenital quadriplegia documented in this encounter Care Teams Baseboard Heating Installer Relationship Specialty Start Date End Date Lucy Elizabeth MD [address] [place] [phone] PCP - General 09/28/08 03/08/21 documented as of this encounter
--- OUTSIDE RECORDS SUMMARY | 2023-10-25 14:42 | XMS_ITS | Encounter Summary ---
Author Organization [facility] Address [address] [place] [address] Care Team Providers Care Piping Drafter Name Role Phone Lucy Elizabeth MD Primary Care Provider [phone] Encounter Details Date Type Department Care Team (Late st Contact Info) Description 01/02/2014 Results Only [facility] - [facility] Lab - Main [address] [id number] Lucy Elizabeth MD [address] [place] [phone] Social History Tobacco Use Types Packs/Day Years Used Date Smoking Tobacco: Never Assessed Sex and Gender Information Value Date Recorded Sex Assigned at Not on file Gender Identity Male 06/12/2019 8:16 EDT Sexual Orientation Not on file documented as of this encounter Plan of Treatment Not on file documented as of this encounter Procedures Procedure Name Priority Date/Time Associated Diagnosis Comments MAGNESIUM POC - [facility] Routine 01/02/2014 12:17 EDT documented in this encounter Results * MAGNESIUM POC - CV (01/02/2014 12:17 EDT) Magnesium 1.70 1.60 - 2.30 mg/dl 01/27/2014 12:26 EST [facility] 01/02/2014 12:1 7 EDT 01/02/2014 12:17 EDT Lucy Elizabeth MD CHEMISTRY & BLOOD GA S ORDERABLES [facility] documented in this encounter Visit Diagnoses Not on filedocumented in this encounter Care Teams Piping Drafter Relationship Specialty Start Date End Date Lucy Elizabeth MD [address] [place] [phone] PCP - General 09/28/08 03/08/21 documented as of this encounter
--- OUTSIDE RECORDS SUMMARY | 2023-10-25 14:42 | XMS_ITS | Encounter Summary ---
Author Organization [facility] Address [address] [place] [address] Care Team Providers Care Strap Maker Name Role Phone Lucy Elizabeth MD Primary Care Provider [phone] Encounter Details Date Type Department Care Team (Late st Contact Info) Description 11/22/[address] [facility] Lab - Main [address] [address] Suyapa Duarte MD [address] [place] [phone] Social History Tobacco Use Types Packs/Day [...] Diagnosis Comments COMPREHENSIVE METABOLIC PANEL (CMP) Routine 11/22/2017 8:25 EDT documented in this encounter Results * (ABNORMAL) COMPREHENSIVE METABOLIC PANEL (CMP) (11/22/2017 8:25 EDT) Albumin % 4.5 3.4 - 4.9 g/dL 11/22/2017 13:33 [facility] ALKALINE PHOSPHATASE - [facility] 71 38 - 126 U/L 11/22/2017 13:33 [facility] BILIRUBIN TOTAL 0.4 0.2 - 1.3 mg/dL 11/22/2017 13:33 [facility] BUN - [facility] 15 10 - 26 mg/dL 11/22/2017 13:33 [facility] CALCIUM - [facility] 10.7(H) 8.5 - 10.5 mg/dL 11/22/2017 13:33 [facility] Chloride 101 96 - 110 mmol/L 11/22/2017 13:33 [facility] CO2 Total 28 21 - 32 mEq/L 11/22/2017 13:33 [facility] CREATININE 0.77 0.66 - 1.25 mg/dL 11/22/2017 13:33 [facility] eGFR >60 11/22/2017 13:33 [facility] Comment: Chronic renal impairment is defined as GFR <60 Multiply result by 1.210 for patients. Anion Gap 13 0 - 18 11/22/2017 13:33 [facility] GLUCOSE - [facility] 83 70 - 100 mg/dL 11/22/2017 13:33 [facility] Potassium 4.2 3.5 - 5.0 mEq/L 11/22/2017 13:33 [facility] Sodium 142 136 - 145 mEq/L 11/22/2017 13:33 [facility] TOTAL PROTEIN - [facility] 7.8 6.2 - 8.2 gm/dL 11/22/2017 13:33 [facility] SGOT/AST - [facility] 29 17 - 59 U/L 11/22/2017 13:33 [facility] SGPT/ALT - [facility] 31 21 - 72 U/L 11/22/2017 13:33 [facility] 11/22/2017 8:25 EDT 11/22/2017 12:04 EDT Narrative [facility] - 11/27/2017 6:14 EDT AOT: 11/27/17 0606: LIPID Suyapa Duarte MD CHEMISTRY & BLOOD GA S ORDERABLES [facility] documented in this encounter Visit Diagnoses Not on filedocumented in this encounter Care Teams Strap Maker Relationship Specialty Start Date End Date Lucy Elizabeth MD [address] [place] [phone] PCP - General 09/28/08 03/08/21 documented as of this encounter
--- OUTSIDE RECORDS SUMMARY | 2023-10-25 14:42 | XMS_ITS | Encounter Summary ---
Author Organization [facility] Address [address] [place] [address] Care Team Providers Care Spring Floor Service Worker Name Role Phone Lucy Elizabeth MD Primary Care Provider [phone] Encounter Details Date Type Department Care Team (Late st Contact Info) Description 01/02/2014 Results Only [facility] - [address] [id number] Lucy Elizabeth MD [address] [place] [phone] Social History Tobacco Use Types Packs/Day Years Used Date Smoking Tobacco: Never Assessed Sex and Gender Information Value Date Recorded Sex Assigned at Not on file Gender Identity Male 06/12/2019 8:16 EDT Sexual Orientation Not on file documented as of this encounter Plan of Treatment Not on file documented as of this encounter Procedures Procedure Name Priority Date/Time Associated Diagnosis Comments LIPID PANEL POC - [facility] Routine 01/02/2014 12:17 EDT documented in this encounter Results * (ABNORMAL) LIPID PANEL POC - [facility] (01/02/2014 12:17 EDT) Triglyceride 197(H) 0.00 - 150.00 mg/dl 01/27/2014 12:26 [facility] Cholesterol 151 0.00 - 200.00 mg/dl 01/27/2014 12:26 [facility] HDL 47 40.00 - 60.00 mg/dl 01/27/2014 12:26 EST [facility] 01/02/2014 12:1 7 EDT 01/02/2014 12:17 EDT Lucy Elizabeth MD CHEMISTRY & BLOOD GA S ORDERABLES [facility] documented in this encounter Visit Diagnoses Not on filedocumented in this encounter Care Teams Spring Floor Service Worker Relationship Specialty Start Date End Date Lucy Elizabeth MD [address] [place] [phone] PCP - General 09/28/08 03/08/21 documented as of this encounter
--- OUTSIDE RECORDS SUMMARY | 2023-10-25 14:42 | XMS_ITS | Encounter Summary ---
Author Organization [facility] Address [address] [place] [address] Care Team Providers Care Electronic Equipment Repairer Name Role Phone Lucy Elizabeth MD Primary Care Provider [phone] Encounter Details Date Type Department Care Team (Late st Contact Info) Description 09/25/2016 Historical Results Only [facility] - Main [address] [address] Lucy Elizabeth MD [address] [place] [phone] Social History Tobacco Use Types Packs/Day [...] PROFILE (INCLUDES CHOLESTEROL, TRIGLYCERIDES, HDL, LDL) Routine 09/25/2016 8:30 EDT documented in this encounter Results * (ABNORMAL) LIPID PROFILE (INCLUDES CHOLESTEROL, TRIGLYCERIDES, HDL, LDL) (09/25/2016 8:30 EDT) Triglyceride 309(H) 35 - 150 mg/dL 09/25/2016 10:41 EDT [facility] Cholesterol 156 120 - 200 mg/dL 09/25/2016 10:41 EDT [facility] Chol/HDL Ratio 4.4 0 - 5.0 09/25/2016 10:41 EDT [facility] Comment: DESIRABLE RATIO IS LESS THAN 4.1 PATIENTS ARE CONSIDERED AT RISK: WOMEN RATIO >5 MEN RATIO >6 FASTING? - [facility] Unknown 7 9:34 EDT [facility] HDL 35(L) 40 - 60 mg/dL 09/25/2016 10:41 EDT [facility] LDL CHOLESTEROL - [facility] 59(L) 60 - 100 mg/dL 09/25/2016 10:41 EDT [facility] Non HDL Cholesterol 121 mg/dl 09/25/2016 10:41 EDT [facility] Comment: Desirable: ?Less than 130 Borderline High: ??130-159 High: ? 160-189 Very High: ?Greater than or equal to 190 09/25/2016 8:30 EDT 09/25/2016 9:34 EDT Lucy Elizabeth MD CHEMISTRY & BLOOD GA S ORDERABLES [facility] documented in this encounter Visit Diagnoses Not on filedocumented in this encounter Care Teams Electronic Equipment Repairer Relationship Specialty Start Date End Date Lucy Elizabeth MD [address] [place] [phone] PCP - General 09/28/08 03/08/21 documented as of this encounter
--- OUTSIDE RECORDS SUMMARY | 2023-10-25 14:42 | XMS_ITS | Encounter Summary ---
Author Organization [facility] Address [address] [place] [address] Care Team Providers Care Trucksmith Name Role Phone Lucy Elizabeth MD Primary Care Provider [phone] Encounter Details Date Type Department Care Team (Late st Contact Info) Description 03/13/2018 Historical Results Only [facility] - [facility] - Main [address] [address] Lucy Elizabeth MD [address] [place] [phone] Social History Tobacco Use Types Packs/Day [...] Procedure Name Priority Date/Time Associated Diagnosis Comments PSA, ULTRASENSITIVE, DIAGNOSTIC, S UROLOGY/ONCOLOGY USE ONLY Routine 03/13/2018 9:00 EST PSA FREE TOTAL ([facility]) Routine 03/13/2018 9:00 EST PSA RATIO ([facility]) Routine 03/13/2018 9:00 EST PTH INTACT Routine 03/13/2018 9:00 EST URIC ACID Routine 03/13/2018 9:00 EST TSH Routine 03/13/2018 9:00 EST MAGNESIUM Routine 03/13/2018 9:00 EST HEMOGLOBIN A1C Routine 03/13/2018 9:00 EST LIPID PROFILE (INCLUDES CHOLESTEROL, TRIGLYCERIDES, HDL, LDL) Routine 03/13/2018 9:00 EST COMPREHENSIVE METABOLIC PANEL (CMP) Routine 03/13/2018 9:00 EST documented in this encounter Results * URIC ACID (03/13/2018 9:00 EST) URIC ACID - [facility] 5.9 3.9 - 9.0 mg/dL 03/13/2018 11:09 EST [facility] 03/13/2018 9:00 EST 03/13/2018 9:47 EST Lucy Elizabeth MD CHEMISTRY & BLOOD GA S ORDERABLES [facility] * MAGNESIUM (03/13/2018 9:00 EST) Magnesium 1.90 1.7 - 2.8 mg/dL 03/13/2018 11:09 EST [facility] 03/13/2018 9:00 EST 03/13/2018 9:47 EST Lucy Elizabeth MD CHEMISTRY & BLOOD GA S ORDERABLES [facility] * (ABNORMAL) LIPID PROFILE (INCLUDES CHOLESTEROL, TRIGLYCERIDES, HDL, LDL) (03/13/2018 9:00 EST) Triglyceride 104 <150 mg/dL 03/13/2018 11:09 [facility] Comment: Adult: Normal: ?<150 mg/dl ? Borderline High: 150-199 mg/dl ? High: ?200-499 mg/dl ? Very High: >ru=533 Cholesterol 120 <200 mg/dL 03/13/2018 11:09 [facility] Comment: Acceptable: ??<200 Borderline: ??200-239 High: ?> or = 240 Chol/HDL Ratio 3.3 0 - 5.0 03/13/2018 11:09 [facility] Comment: DESIRABLE RATIO IS LESS THAN 4.1 PATIENTS ARE CONSIDERED AT RISK: WOMEN RATIO >5 MEN RATIO >6 FASTING? - [facility] Unknown 9:48 [facility] HDL 36(L) 40 - 60 mg/dL 03/13/2018 11:09 [facility] Comment: ?? Reference Range Low: ? < 40 ??mg/dL Normal: ??40-60 mg/dL High: ?>= 60 mg/dL LDL CHOLESTEROL - [facility] 63 60 - 100 mg/dL 03/13/2018 11:09 [facility] Non HDL Cholesterol 84 mg/dl 03/13/2018 11:09 [facility] Comment: Desirable: ?Less than 130 Borderline High: ??130-159 High: ? 160-189 Very High: ?Greater than or equal to 190 03/13/2018 9:00 EST 03/13/2018 9:47 EST Lucy Elizabeth MD CHEMISTRY & BLOOD GA S ORDERABLES [facility] * (ABNORMAL) COMPREHENSIVE METABOLIC PANEL (CMP) (03/13/2018 9:00 [facility]) Albumin % 4.3 3.4 - 4.9 g/dL 03/13/2018 11:09 [facility] ALKALINE PHOSPHATASE - [facility] 96 38 - 126 U/L 03/13/2018 11:09 [facility] BILIRUBIN TOTAL 0.3 0.2 - 1.3 mg/dL 03/13/2018 11:09 [facility] BUN - [facility] 16 10 - 26 mg/dL 03/13/2018 11:09 [facility] CALCIUM - [facility] 10.6(H) 8.5 - 10.5 mg/dL 03/13/2018 11:09 [facility] Chloride 94(L) 96 - 110 mmol/L 03/13/2018 11:10 [facility] CO2 Total 28 21 - 32 mEq/L 03/13/2018 11:10 [facility] CREATININE 0.84 0.66 - 1.25 mg/dL 03/13/2018 11:09 [facility] eGFR >60 03/13/2018 11:09 [facility] Comment: Chronic renal impairment is defined as GFR <60 Multiply result by 1.210 for patients. Anion Gap 20(H) 0 - 18 03/13/2018 11:22 [facility] GLUCOSE - [facility] 126(H) 70 - 100 mg/dL 03/13/2018 11:09 [facility] Potassium 4.6 3.5 - 5.0 mEq/L 03/13/2018 11:09 [facility] Sodium 142 136 - 145 mEq/L 03/13/2018 11:10 [facility] TOTAL PROTEIN - [facility] 7.9 6.2 - 8.2 gm/dL 03/13/2018 11:09 [facility] SGOT/AST - [facility] 38 17 - 59 U/L 03/13/2018 11:09 [facility] SGPT/ALT - [facility] 63 21 - 72 U/L 03/13/2018 11:09 [facility] 03/13/2018 9:00 EST 03/13/2018 9:47 EST Lucy Elizabeth MD CHEMISTRY & BLOOD GA S ORDERABLES Performing Organization Address [facility]/ZIP Co de Phone Number [facility] * PSA, ULTRASENSITIVE, DIAGNOSTIC, S UROLOGY/ONCOLOGY USE ONLY (03/13/2018 9:00 EST) Pathologist [facility] [place] PSA ULTRASENSTIVE - [facility] 2.100 <4.0 ng/mL 03/15/2018 7:41 EST [facility] Comment: Test methodology is Siemens Chemiluminescence. The lower limit of detection is 0.010 ng/mL. ??Results from different methods or kits cannot be used interchangeably. ?? Serum PSA results cannot be interpreted as absolute evidence of presence or absence of malignancy. PERFORMED at [facility]. ??[address] [place] [address]. Laboratory Fountain Clerk: ??Zev Paz M.D. 03/13/2018 9:00 EST 03/13/2018 9:47 EST Lucy Elizabeth MD CHEMISTRY & BLOOD GA S ORDERABLES Performing Organization Address [facility] Co de Phone Number [facility] * PSA FREE TOTAL ([facility]) (03/13/2018 9:00 EST) Pathologist [facility] PROSTATE-SPECIFI C ANTIGEN - [facility] 0.43 ng/mL 03/15/2018 7:41 EST [facility] Comment: Test methodology is Siemens Chemiluminescence. Results from different methods or kits cannot be used interchangeably. Results cannot be interpreted as absolute evidence of presence or absence of malignancy. 03/13/2018 9:00 EST 03/13/2018 9:47 EST Lucy Elizabeth MD CHEMISTRY & BLOOD GA S ORDERABLES Performing Organization Address [facility]/State/ZIP Co de Phone Number [facility] * PSA RATIO ([facility]) (03/13/2018 9:00 EST) Pathologist [facility] [place] PSA RATIO - [facility] TNP % 03/15/19 19 7:41 EST [facility] Comment:PSA or Free PSA not in calculation range. 03/13/2018 9:00 EST 03/13/2018 9:47 EST Lucy Elizabeth MD CHEMISTRY & BLOOD GA S ORDERABLES Performing Organization Address City/[facility]/ZIP Co de Phone Number [facility] * TSH (03/13/2018 9:00 EST) Pathologist [facility] [place] THYROID STIM HORMONE [facility] 3.03 0.46 - 4.68 uIU/ml 03/13/2018 11:40 EST [facility] Comment: The results of this assay can be falsely lowered due to the consumption of Biotin. 03/13/2018 9:00 EST 03/13/2018 9:47 EST Lucy Elizabeth MD CHEMISTRY & BLOOD GA S ORDERABLES Performing Organization Address City[facility]/ZIP Co de Phone Number [facility] * (ABNORMAL) HEMOGLOBIN A1C (03/13/2018 9:00 EST) Pathologist [facility] [place] Hemoglobin A1c 6.7(H) 4.0 - 6.0 % 03/13/2018 13:20 EST [facility] Est Avg Glucose 146 mg/dL 9 13:20 [facility] 03/13/2018 9:00 EST 03/13/2018 9:47 EST Lucy Elizabeth MD CHEMISTRY & BLOOD GA S ORDERABLES [facility] * PTH INTACT (03/13/2018 9:00 EST) [facility] PTH INTACT ([facility]) - [facility] 43 19 - 88 pg/ml 03/14/2018 14:43 EST [facility] Comment: Reference range based on normal calcium level. Test performed [place] [address] 03/13/2018 9:00 EST 03/13/2018 9:47 EST Lucy Elizabeth MD CHEMISTRY & BLOOD GA S ORDERABLES [facility] documented in this encounter Visit Diagnoses Not on filedocumented in this encounter Care Teams Trucksmith Relationship Specialty Start Date End Date Lucy Elizabeth MD [address] [place] [phone] PCP - General 09/28/08 03/08/21 documented as of this encounter
--- OUTSIDE RECORDS SUMMARY | 2023-10-25 14:42 | XMS_ITS | Encounter Summary ---
Author Organization [facility] Address [address] [place] [address] Care Team Providers Care Maritime Guard Name Role Phone Lucy Elizabeth MD Primary Care Provider [phone] Encounter Details Date Type Department Care Team (Late st Contact Info) Description 05/25/2017 Historical Results Only [facility] - Main [address] [address] Suyapa Duarte MD [address] [place] [phone] Social History Tobacco Use Types Packs/Day [...] Associated Diagnosis Comments LIPID PANEL POC - [facility] Routine 05/25/2017 14:51 EDT documented in this encounter Results * (ABNORMAL) LIPID PANEL POC - [facility] (05/25/2017 14:51 EDT) Triglyceride 185(H) 0.00 - 150.00 MG/DL 05/25/2017 14:51 EDT [facility] Cholesterol 128 0.00 - 200.00 MG/DL 05/25/2017 14:51 EDT [facility] HDL 38(L) 40.00 - 60.00 MG/DL 05/25/2017 14:51 EDT [facility] 05/25/2017 14:5 1 EDT 05/25/2017 14:51 EDT Suyapa Duarte MD CHEMISTRY & BLOOD GA S ORDERABLES [facility] documented in this encounter Visit Diagnoses Not on filedocumented in this encounter Care Teams Maritime Guard Relationship Specialty Start Date End Date Lucy Elizabeth MD [address] [place] [phone] PCP - General 09/28/08 03/08/21 documented as of this encounter
--- OUTSIDE RECORDS SUMMARY | 2023-10-25 14:42 | XMS_ITS | Encounter Summary ---
Author Organization [facility] Address [address] [place] [address] Care Team Providers Care Senior Cytogenetic Technologist Name Role Phone Lucy Elizabeth MD Primary Care Provider [phone] Reason for Referral * Consult (Routine/Next Available) - Specialty Report Received Specialty Diagnoses / Procedures Referred By Rubina perkins Referred To Contact Diagnoses 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HCC-CMS) Naga Melendez MD [address] [place] [phone] Referral ID Status Reason Start Date Expiration Date Visits Requested Visits Authorized [id number] Specialty Report Received Specialty Services Required 6 1 1 Question Answer Medication to be Prior Authorized: Botox for next visit Comments Botox 400 units Encounter Details Date Type Department Care Team (Late st Contact Info) Description 02/02/2016 Orders Only [facility] Physical Medicine & [place] [address] [place] [address] Naga Melendez MD [address] [place] [phone] 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CMS-HCC) (Primary Dx) Social History Tobacco Use Types [...] No 11/11/2015 documented as of this encounter Plan of Treatment Scheduled Referrals Name Type Priority Associated Diagnoses Orde r Schedule AMB MEDICATION PRIOR AUTHORIZATION Outpatient Referral Routine 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CMS-HCC) Ordered: 02/02/2016 documented as of this encounter Visit Diagnoses Diagnosis 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[facility])- Primary Congenital quadriplegia documented in this encounter Care Teams Senior Cytogenetic Technologist Relationship Specialty Start Date End Date Lucy Elizabeth MD [address] [place] [phone] PCP - General 09/28/08 03/08/21 documented as of this encounter
--- OUTSIDE RECORDS SUMMARY | 2023-10-25 14:42 | XMS_ITS | Encounter Summary ---
Author Organization [facility] Address [address] [place] [address] Care Team Providers Care Medical Record Clerk Name Role Phone Lucy Elizabeth MD Primary Care Provider [phone] Reason for Referral * Consult (Routine/Next Available) - Specialty Report Received Specialty Diagnoses / Procedures Referred By Rubina perkins Referred To Contact Diagnoses 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HCC-CMS) Naga Melendez MD [address] [place] [phone] Referral ID Status Reason Start Date Expiration Date Visits Requested Visits Authorized [id number] Specialty Report Received Specialty Services Required 11/10/2015 1 1 Question Answer Medication to be Prior Authorized: Botox for next visit Comments Botox 400 units Encounter Details Date Type Department Care Team (Late st Contact Info) Description 11/10/2015 Orders Only [facility] Physical Medicine & [place] [address] [place] [address] Naga Melendez MD [address] [place] [phone] 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CMS-HCC) (Primary Dx) [...] No 05/11/2015 documented as of this encounter Plan of Treatment Scheduled Referrals Name Type Priority Associated Diagnoses Orde r Schedule AMB MEDICATION PRIOR AUTHORIZATION Outpatient Referral Routine 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CMS-HCC) Ordered: 11/10/2015 documented as of this encounter Visit Diagnoses Diagnosis 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HCC-[facility])- Primary Congenital quadriplegia documented in this encounter Care Teams Medical Record Clerk Relationship Specialty Start Date End Date Lucy Elizabeth MD [address] [place] [phone] PCP - General 09/28/08 03/08/21 documented as of this encounter
--- OUTSIDE RECORDS SUMMARY | 2023-10-25 14:42 | XMS_ITS | Encounter Summary ---
Author Organization [facility] Address [address] [place] [address] Care Team Providers Care Securities Clerk Name Role Phone Lucy Elizabeth MD Primary Care Provider [phone] Reason for Referral * Consult (Routine/Next Available) - Closed Specialty Diagnoses / Procedures Referred By Rubina perkins Referred To Contact Diagnoses 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HCC-CMS) Naga Melendez MD [address] [place] [phone] Referral ID Status Reason Start Date Expiration Date V isits Requested Visits Authorized [id number] Closed Specialty Services Required 05/07/2016 1 1 Question Answer Medication to be Prior Authorized: Botox for next visit Comments Botox 400 units Encounter Details Date Type Department Care Team (Late st Contact Info) Description 05/07/2016 Orders Only [facility] Physical Medicine & Rehabilitation [place] [address] Naga Melendez MD [address] [place] [phone] 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CMS-HCC) (Primary Dx) [...] Outpatient Referral Routine 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CMS-[facility]) Ordered: 05/07/2016 documented as of this encounter Visit Diagnoses Diagnosis 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HCC-[facility])- Primary Congenital quadriplegia documented in this encounter Care Teams Securities Clerk Relationship Specialty Start Date End Date Luyc Elizabeth MD [address] [place] [phone] PCP - General 09/28/08 03/08/21 documented as of this encounter
--- OUTSIDE RECORDS SUMMARY | 2023-10-25 14:42 | XMS_ITS | Encounter Summary ---
Author Organization [facility] Address [address] [place] [address] Care Team Providers Care Concessions Manager Name Role Phone Lucy Elizabeth MD Primary Care Provider [phone] Encounter Details Date Type Department Care Team (Late st Contact Info) Description 11/22/2017 Historical Results Only [facility] - [facility] Lab - Main [address] [address] Suyapa Duarte MD [address] [place] [phone] Social History Tobacco Use Types Packs/Day [...] PROFILE (INCLUDES CHOLESTEROL, TRIGLYCERIDES, HDL, LDL) Routine 11/22/2017 8:25 EDT documented in this encounter Results * (ABNORMAL) LIPID PROFILE (INCLUDES CHOLESTEROL, TRIGLYCERIDES, HDL, LDL) (11/22/2017 8:25 EDT) Triglyceride 156 <150 mg/dL 11/27/2017 6:14 EDT [facility] Comment: Adult: Normal: ?<150 mg/dl ? Borderline High: 150-199 mg/dl ? High: ?200-499 mg/dl ? Very High: >fb=[id number] Cholesterol 118 <200 mg/dL 11/27/2017 6:14 [facility] Comment: Acceptable: ??<200 Borderline: ??200-239 High: ?> or = 240 Chol/HDL Ratio 4.2 0 - 5.0 11/27/2017 6:14 [facility] Comment: DESIRABLE RATIO IS LESS THAN 4.1 PATIENTS ARE CONSIDERED AT RISK: WOMEN RATIO >5 MEN RATIO >6 FASTING? - [facility] Unknown 8 6:06 [facility] HDL 28(L) 40 - 60 mg/dL 11/27/2017 6:14 [facility] Comment: ?? Reference Range Low: ? < 40 ??mg/dL Normal: ??40-60 mg/dL High: ?>= 60 mg/dL LDL CHOLESTEROL - [facility] 59(L) 60 - 100 mg/dL 11/27/2017 6:14 [facility] Non HDL Cholesterol 90 mg/dl 11/27/2017 6:14 [facility] Comment: Desirable: ?Less than 130 Borderline High: ??130-159 High: ? 160-189 Very High: ?Greater than or equal to 190 11/22/2017 8:25 EDT 11/22/2017 12:04 EDT Narrative [facility] - 11/27/2017 6:14 EDT AOT: 11/27/17 0606: LIPID Suyapa Duarte MD CHEMISTRY & BLOOD GA S ORDERABLES [facility] documented in this encounter Visit Diagnoses Not on filedocumented in this encounter Care Teams Concessions Manager Relationship Specialty Start Date End Date Lucy Elizabeth MD [address] [place] [phone] PCP - General 09/28/08 03/08/21 documented as of this encounter
--- OUTSIDE RECORDS SUMMARY | 2023-10-25 14:42 | XMS_ITS | Encounter Summary ---
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[facility]) Naga Melendez MD [address] [place] [address] Naga Melendez MD [address] [address] Referral ID Status Reason Start Date Expiration Date Visits Requested Visits Authorized [id number] Specialty Report Received Specialty Services Required 4 06/19/2014 4 4 Encounter Details Date Type Department Care Team (Latest Contact Info) Description 12/19/2013 9:30 EDT Office Visit [facility] - [facility] [address] [place], [place] [address] Naga Melendez MD [address] [place] [phone] 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HCC-CMS) (Primary Dx) Social History Tobacco Use Types Packs/Day Years Used Date Smoking Tobacco: Never Assessed Sex and Gender Information Value Date Recorded Sex Assigned at Not on file Gender Identity Male 06/12/2019 8:16 EDT Sexual Orientation Not on file documented as of this encounter Patient Instructions * Patient Instructions* Naga Melendez MD - 12/19/2013 9:57 EDT Physical Medicine and Rehabilitation Naga Melendez M.D. [address] [place] [phone] Discharge Instructions after Botulinum Toxin Injections Diet [...] for any questions you may have at [phone] x 2. The office is open Sunday-Sunday from 8:00 am to 5:00pm. On weekends or evenings, if you have a serious problem, please call your Inspector Golf Ball, Primary CarePhysician or go to your local Emergency Room. If for any reason a follow-up appointment was not provided or you need to reschedule an appointment, please call our office, the [facility] ([phone] or [phone]) or the [facility] ([phone] or [phone]) if that is where you are seen. 06/12ss documented in this encounter Progress Notes * Viri Sung RN - 12/19/2013 1019 EDT Botulinum toxin Lot #: [id number] Botulinum toxin expiration date: 07/2016 Botulinum toxin [facility] # 9871-1929-35 Total Botulinum toxin units injected: 400 Total Botulinum toxin units wasted: 0 * Naga Melendez MD - 12/19/2013 0958 EDT Botulinum Toxin Injection Procedure Note Pre-Procedure Diagnosis: Spastic tetraplegia CP Indications: spasticity that adversely impacts transfers. Norberto continues to do well with Botox into his hamstrings to reduce knee flexor tone, allowing him to do some limited weightbearing for stand pivot transfers. He reports no problems with his equipment. He has a manual wheelchair for community outings with his family or with caregivers and has a motorized wheelchair, which he uses in his apartment. He lives in [facility], which [facility] been converted to a personalized living manager apartment complex. He has his own apartment within that space. He is quite happy there. On examination today, he has knee flexion contractures at around 30 degrees. Knee flexor tone today, modified Kate score of 2. Procedure Details [...] activity is noted with the EMG needle. BOTOX Hamstring: Units Right 200 Left 200 Total botox units injected: 400 Total botox units wasted: 0 Plan: Return to clinic for assessment of botulinum toxin effectiveness in 3 months. An After Visit Summary was printed and given to the patient. Follow up visit 03/23/2014 documented in this encounter Plan of Treatment Scheduled Referrals Name Type Priority Associated Diagnoses Orde r Schedule AMB MEDICATION PRIOR AUTHORIZATION Outpatient Referral Routine 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HCC-CMS) Ordered: 12/19/2013 documented as of this encounter Visit Diagnoses Diagnosis 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HCC-CMS)- Primary Congenital quadriplegia documented in this encounter Care Teams Chief Pilot Relationship Specialty Start Date End Date Lucy Elizabeth MD [address] [place] [phone] PCP - General 09/28/08 03/08/21 documented as of this encounter
--- OUTSIDE RECORDS SUMMARY | 2023-10-25 14:42 | XMS_ITS | Encounter Summary ---
Author Organization [facility] Address [address] [place] [address] Care Team Providers Care Software Publisher Name Role Phone Lucy Elizabeth MD Primary Care Provider [phone] Encounter Details Date Type Department Care Team (Late st Contact Info) Description 01/02/2014 Results Only [facility] - [facility] Lab - [address] [phone] Lucy Elizabeth MD [address] [place] [phone] Social History Tobacco Use Types Packs/Day [...] Date/Time Associated Diagnosis Comments GLYCOHEMOGLOBIN POC - CV Routine 01/02/2014 12:17 EDT documented in this encounter Results * GLYCOHEMOGLOBIN POC - CV (01/02/2014 12:17 EDT) Hemoglobin A1c 5.5 4.00 - 6.00 % 01/27/2014 12:26 [facility] AVG CALCULATED GLUCOSE - [facility] 103 60.00 - 115.00 mg/dl 01/27/2014 12:26 [facility] 01/02/2014 12:1 7 EDT 01/02/2014 12:17 EDT Lucy Elizabeth MD CHEMISTRY & BLOOD GA S ORDERABLES [facility] documented in this encounter Visit Diagnoses Not on filedocumented in this encounter Care Teams Software Publisher Relationship Specialty Start Date End Date Lucy Elizabeth MD [address] [place] [phone] PCP - General 09/28/08 03/08/21 documented as of this encounter
--- OUTSIDE RECORDS SUMMARY | 2023-10-25 14:42 | XMS_ITS | Encounter Summary ---
Author Organization [facility] Address [address] [place] [address] Care Team Providers Care Multifold Operator Name Role Phone Lucy Elizabeth MD Primary Care Provider [phone] Encounter Details Date Type Department Care Team (Late st Contact Info) Description 08/24/2017 Historical Results Only [facility] Lab - Main [address] [address] Suyapa Duarte MD [address] [place] [phone] Social History Tobacco Use Types Packs/Day [...] Date/Time Associated Diagnosis Comments GLYCOHEMOGLOBIN POC - [facility] Routine 08/24/2017 10:29 EDT documented in this encounter Results * GLYCOHEMOGLOBIN POC - [facility] (08/24/2017 10:29 EDT) Hemoglobin A1c 5.7 4.0 - 6.0 % 08/24/2017 10:30 EDT [facility] AVG CALCULATED GLUCOSE - [facility] 110 60 - 115 MG/DL 08/24/2017 10:30 EDT [facility] 08/24/2017 10:2 9 EDT 08/24/2017 10:29 EDT Suyapa Duarte MD CHEMISTRY & BLOOD GA S ORDERABLES [facility] documented in this encounter Visit Diagnoses Not on filedocumented in this encounter Care Teams Multifold Operator Relationship Specialty Start Date End Date Lucy Elizabeth MD [address] [place] [phone] PCP - General 09/28/08 03/08/21 documented as of this encounter
--- OUTSIDE RECORDS SUMMARY | 2023-10-25 14:42 | XMS_ITS | Encounter Summary ---
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 [address] [place] [address] Discharge Instructions after Botulinum Toxin Injections Diet [...] for any questions you may have at [phone] x 2. The office is open Sunday-Sunday from 8:00 am to 5:00pm. On weekends or evenings, if you have a serious problem, please call your Tie Binder, Primary CarePhysician or go to your local Emergency Room. If for any reason a follow-up appointment was not provided or you need to reschedule an appointment, please call our office, the [facility] ([phone] or [phone]) or the [facility] ([phone] or [phone]) if that is where you are seen. 06/12ss documented in this encounter Discharge Disposition Disposition Code Departure Means Destination Auto Discharge documented in this encounter Progress Notes * Naga Melendez MD - 08/10/2015 1543 EDT Botulinum Toxin Injection Procedure Note Pre-Procedure Diagnosis: Spastic tetraplegia Indications: spasticity that adversely impacts Transfers. knee flexor tone reduce his standing ability and limits Pradeep's ability to do transfers independently or with caregivers. He has continued to feel the Botox into his hamstrings has made it easier for him to bear weight through his legs so that his mobility is less problematic and difficult for he and caregivers. He has never had any negative side effects from the injections. Examination: Pradeep has knee flexor tone modified Kate score of 2 contractures at around 25??.EMG Procedure Details Consent was obtained after discussing [...] given to the patient. 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
--- OUTSIDE RECORDS SUMMARY | 2023-10-25 14:42 | XMS_ITS | Encounter Summary ---
Author Organization [facility] Address [address] [place] [address] Care Team Providers Care Composite Worker Name Role Phone Lucy Elizabeth MD Primary Care Provider [phone] Encounter Details Date Type Department Care Team (Late st Contact Info) Description 09/25/2016 Historical Results Only [facility] - Main [address] [address] Lucy Elizabeth MD [address] [place] [phone] Social History Tobacco Use Types Packs/Day [...] Priority Date/Time Associated Diagnosis Comments MAGNESIUM Routine 09/25/2016 8:30 EDT documented in this encounter Results * MAGNESIUM (09/25/2016 8:30 EDT) Magnesium 2.20 1.6 - 2.6 mg/dL 09/25/2016 10:41 EDT [facility] Comment: 24 Hour urine magnesium is a better indicator of magnesium stores. 09/25/2016 8:30 EDT 09/25/2016 9:34 EDT Lucy Elizabeth MD CHEMISTRY & BLOOD GA S ORDERABLES [facility] documented in this encounter Visit Diagnoses Not on filedocumented in this encounter Care Teams Composite Worker Relationship Specialty Start Date End Date Lucy Elizabeth MD [address] [place] [phone] PCP - General 09/28/08 03/08/21 documented as of this encounter
--- OUTSIDE RECORDS SUMMARY | 2023-10-25 14:42 | XMS_ITS | Encounter Summary ---
Author Organization [facility] Address [address] [place] [address] Care Team Providers Care Web Production Assistant Name Role Phone Lucy Elizabeth MD Primary Care Provider [phone] Encounter Details Date Type Department Care Team (Late st Contact Info) Description 09/25/2016 Historical Results Only [facility] - [facility] Lab - Main [address] [address] Lucy Elizabeth MD [address] [place] [phone] Social History Tobacco Use Types Packs/Day [...] Diagnosis Comments COMPREHENSIVE METABOLIC PANEL (CMP) Routine 09/25/2016 8:30 EDT documented in this encounter Results * (ABNORMAL) COMPREHENSIVE METABOLIC PANEL (CMP) (09/25/2016 8:30 EDT) Albumin % 4.2 3.4 - 5.0 g/dL 09/25/2016 10:41 [facility] ALKALINE PHOSPHATASE - [facility] 75 42 - 122 U/L 09/25/2016 10:41 [facility] BILIRUBIN TOTAL 0.2 0.0 - 1.0 mg/dL 09/25/2016 10:41 [facility] BUN - [facility] 15 7 - 18 mg/dL 09/25/2016 10:41 [facility] CALCIUM - [facility] 9.4 8.5 - 10.1 mg/dL 09/25/2016 10:41 [facility] Chloride 100 98 - 107 mEq/L 09/25/2016 10:41 [facility] CO2 Total 25 21 - 32 mEq/L 09/25/2016 10:41 [facility] CREATININE 1.01 0.5 - 1.3 mg/dL 09/25/2016 10:41 [facility] eGFR >60 09/25/2016 10:41 [facility] Comment: Chronic renal impairment is defined as GFR <60 Multiply result by 1.210 for patients. Anion Gap 13 5 - 15 09/25/2016 10:41 [facility] GLUCOSE - [facility] 113(H) 70 - 100 mg/dL 09/25/2016 10:41 [facility] Potassium 4.3 3.5 - 5.0 mEq/L 09/25/2016 10:41 [facility] Sodium 138 135 - 145 mEq/L 09/25/2016 10:41 [facility] TOTAL PROTEIN - [facility] 7.9 6.4 - 8.2 gm/dl 09/25/2016 10:41 [facility] SGOT/AST - [facility] 20 10 - 37 U/L 09/25/2016 10:41 [facility] SGPT/ALT - [facility] 28 12 - 78 U/L 09/25/2016 10:41 [facility] 09/25/2016 8:30 EDT 09/25/2016 9:34 EDT Lucy Elizabeth MD CHEMISTRY & BLOOD GA S ORDERABLES [facility] documented in this encounter Visit Diagnoses Not on filedocumented in this encounter Care Teams Web Production Assistant Relationship Specialty Start Date End Date Lucy Elizabeth MD [address] [place] [phone] PCP - General 09/28/08 03/08/21 documented as of this encounter
--- OUTSIDE RECORDS SUMMARY | 2023-10-25 14:42 | XMS_ITS | Encounter Summary ---
Author Organization [facility] Address [address] [place] [address] Care Team Providers Care Operations Trainer Name Role Phone Lucy Elizabeth MD Primary Care Provider [phone] Encounter Details Date Type Department Care Team (Late st Contact Info) Description 09/25/2016 Historical Results Only [facility] Lab - Main [address] [address] Lucy Elizabeth MD [address] [place] [phone] Social History Tobacco Use Types Packs/Day [...] Procedure Name Priority Date/Time Associated Diagnosis Comments TSH Routine 09/25/2016 8:30 EDT documented in this encounter Results * TSH (09/25/2016 8:30 EDT) THYROID STIM HORMONE - [facility] 0.76 0.35 - 5.50 uIU/mL 09/25/2016 10:[address] [facility] 09/25/2016 8:30 EDT 09/25/2016 9:34 EDT Lucy Elizabeth MD CHEMISTRY & BLOOD GA S ORDERABLES [facility] documented in this encounter Visit Diagnoses Not on filedocumented in this encounter Care Teams Operations Trainer Relationship Specialty Start Date End Date Lucy Elizabeth MD [address] [place] [phone] PCP - General 09/28/08 03/08/21 documented as of this encounter
--- OUTSIDE RECORDS SUMMARY | 2023-10-25 14:42 | XMS_ITS | Encounter Summary ---
Author Organization [facility] Address [address] [place] [address] Care Team Providers Care Rod And Tube Straightener Name Role Phone Lucy Elizabeth MD Primary Care Provider [phone] Encounter Details Date Type Department Care Team (Late st Contact Info) Description 11/22/2017 Historical Results Only [facility] Lab - Main [address] [address] Suyapa Duarte MD [address] [place] [phone] Social History Tobacco Use Types Packs/Day [...] Priority Date/Time Associated Diagnosis Comments TSH Routine 11/22/2017 8:25 EDT HEMOGLOBIN A1C Routine 11/22/2017 8:25 EDT VALPROIC ACID LEVEL Routine 11/22/2017 8 :25 EDT documented in this encounter Results * HEMOGLOBIN A1C (11/22/2017 8:25 EDT) Hemoglobin A1c 5.6 4.0 - 6.0 % 11/22/2017 20:41 EDT [facility] Est Avg Glucose 114 mg/dL 8 20:41 EDT [facility] 11/22/2017 8:25 EDT 11/22/2017 12:04 EDT Suyapa Duarte MD CHEMISTRY & BLOOD GA S ORDERABLES [facility] * (ABNORMAL) TSH (11/22/2017 8:25 EDT) Pathologist [facility] THYROID STIM HORMONE - [facility] 0.22(L) 0.46 - 4.68 uIU/ml 11/22/2017 13:59 EDT [facility] Comment: The results of this assay can be falsely lowered due to the consumption of Biotin. 11/22/2017 8:25 EDT 11/22/2017 12:04 EDT Suyapa Duarte MD CHEMISTRY & BLOOD GA S ORDERABLES [facility] * VALPROIC ACID LEVEL (11/22/2017 8:25 EDT) Valproic Acid 77.5 50 - 100 ug/mL 11/22/2017 13:33 EDT [facility] Comment: Therapeutic Range: 50-100 ug/mL Toxic: ??>120 ug/mL 11/22/2017 8:25 EDT 11/22/2017 12:04 EDT Narrative [facility] - 11/27/2017 6:14 EDT AOT: 11/27/17 0606: LIPID Suyapa Duarte MD CHEMISTRY & BLOOD GA S ORDERABLES [facility] documented in this encounter Visit Diagnoses Not on filedocumented in this encounter Care Teams Rod And Tube Straightener Relationship Specialty Start Date End Date Lucy Eilzabeth MD [address] [place] [phone] PCP - General 09/28/08 03/08/21 documented as of this encounter
--- OUTSIDE RECORDS SUMMARY | 2023-10-25 14:42 | XMS_ITS | Encounter Summary ---
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 [address] [place] [address] Discharge Instructions after Botulinum Toxin Injections Diet [...] for any questions you may have at [phone] x 2. The office is open Sunday-Sunday from 8:00 am to 5:00pm. On weekends or evenings, if you have a serious problem, please call your Stripper Soft Plastic, Primary CarePhysician or go to your local Emergency Room. If for any reason a follow-up appointment was not provided or you need to reschedule an appointment, please call our office, the [facility]. Clinic ([phone] or [phone]) or the [facility] ([phone] or [phone]) if that is where you are seen. 06/12ss documented in this encounter Discharge Disposition Disposition Code Departure Means Destination Auto Discharge documented in this encounter Progress Notes * Naga Melendez MD - 10/26/2014 5739 EDT Botulinum Toxin Injection Procedure Note Pre-Procedure Diagnosis: Spastic tetraplegia Indications: spasticity that adversely impacts standing and transfers. Janes reports that he continues to benefit noticeably from Botox into the hamstrings to reduce knee flexor tone, allowing him increased ease of weightbearing through his legs for stand pivot transfers in and out of his wheelchair, on and off of the toilet. He does note as they wear off that it is harder to stand, and he requires more assistance with these activities. He has never noted any adverse effects from the medication, including no history of general weakness, swallowing, or breathing problems. No seizure events. On exam, knee flexor tone modified Kate score of 2 today. With assistance from his mother. he is able to do a squat or half squat, stand pivot transfer from the chair to the exam table for injections. He continues to use lower extremity compressive wraps for significant foot edema and lower extremity edema. His feet were 3+ pitting today, and above his ankle was 1+ pitting. Procedure Details Consent was obtained after discussing [...] for assessment of botulinum toxin effectiveness in 4 months. An After Visit Summary was printed and given to the patient. Follow up visit 02/09/2015 Continue compressive wraps for the lower extremities to help with edema reduction. 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
--- OUTSIDE RECORDS SUMMARY | 2023-10-25 14:42 | XMS_ITS | Encounter Summary ---
Author Organization [facility] Address [address] [place] [address] Care Team Providers Care Cotton Factor Name Role Phone Lucy Elizabeth MD Primary Care Provider [phone] Encounter Details Date Type Department Care Team (Late st Contact Info) Description 05/25/2017 Historical Results Only [facility] Lab - Main [address] [address] Suyapa Duarte MD [address] [place] [phone] Social History Tobacco Use Types Packs/Day [...] Date/Time Associated Diagnosis Comments MAGNESIUM POC - [facility] Routine 05/25/2017 14:51 EDT documented in this encounter Results * MAGNESIUM POC - [facility] (05/25/2017 14:51 EDT) Magnesium 1.90 1.60 - 2.30 MG/DL 05/25/2017 14:51 EDT [facility] 05/25/2017 14:5 1 EDT 05/25/2017 14:51 EDT Suyapa Duarte MD CHEMISTRY & BLOOD GA S ORDERABLES [facility] documented in this encounter Visit Diagnoses Not on filedocumented in this encounter Care Teams Cotton Factor Relationship Specialty Start Date End Date Lucy Elizabeth MD [address] [place] [phone] PCP - General 09/28/08 03/08/21 documented as of this encounter
--- OUTSIDE RECORDS SUMMARY | 2023-10-25 14:42 | XMS_ITS | Encounter Summary ---
Author Organization [facility] Address [address] [place] [address] Care Team Providers Care Senior Database Programmer Name Role Phone Lucy Elizabeth MD Primary Care Provider [phone] Encounter Details Date Type Department Care Team (Late st Contact Info) Description 05/25/2017 Historical Results Only [facility] - Main [address] [address] Suyapa Duarte MD [address] [place] [phone] Social History Tobacco Use Types Packs/Day [...] Date/Time Associated Diagnosis Comments POCT CHOLESTEROL LDL ([facility]) Routine 05/25/2017 14:51 EDT documented in this encounter Results * (ABNORMAL) POCT CHOLESTEROL LDL ([facility]) (05/25/2017 14:51 EDT) LDL CHOLESTEROL - [facility] 53(L) 60 - 100 MG/DL 05/25/2017 14:51 EDT [facility] 05/25/2017 14:5 1 EDT 05/25/2017 14:51 EDT Suyapa Duarte MD POINT OF CARE TEST O RDERABLES [facility] documented in this encounter Visit Diagnoses Not on filedocumented in this encounter Care Teams Senior Database Programmer Relationship Specialty Start Date End Date Lucy Elizabeth MD [address] [place] [phone] PCP - General 09/28/08 03/08/21 documented as of this encounter
--- OUTSIDE RECORDS SUMMARY | 2023-10-25 14:43 | XMS_ITS | Encounter Summary ---
Author Organization [facility] Address [address] [place] [address] Care Team Providers Care Wood Boatbuilder Name Role Phone Lucy Elizabeth MD Primary Care Provider [phone] Reason for Visit * Reason Comments Botox Injection Encounter Details Date Type Department Care Team (Latest Contact Info) Description 10/25/2010 14:00 EDT Office Visit [facility] Rehabilitation Therapy [address] [place], [place] [address] Naga Melendez MD [address] [place] [address] Quadriplegic infantile cerebral palsy (HCC-CMS) (Primary Dx) Discharge Disposition: Auto Discharge Social History Tobacco Use Types Packs/Day Years Used Date Smoking Tobacco: Never Assessed Sex and Gender Information Value Date Recorded Sex Assigned at Not on file Gender Identity Male 06/12/2019 8:16 EDT Sexual Orientation Not on file documented as of this encounter Patient Instructions * Patient Instructions* Naga Melendez MD - 10/25/2010 14:29 EDT Physical Medicine and Rehabilitation Naga Melendez M.D. [address] [place] [address] Discharge Instructions after Botulinum Toxin Injections Diet [...] for any questions you may have at [phone] x 2. The office is open Sunday-Sunday from 8:00 am to 5:00pm. On weekends or evenings, if you have a serious problem, please call your Car Repair Supervisor, Primary CarePhysician or go to your local Emergency Room. If for any reason a follow-up appointment was not provided or you need to reschedule an appointment, please call our office, the [facility] Clinic ([phone] or [phone]) or the [facility] ([phone] or [phone]) if that is where you are seen. 06/12ss documented in this encounter Discharge Disposition Disposition Code Departure Means Destination Auto Discharge documented in this encounter Progress Notes * Naga Melendez MD - 10/25/2010 3366 EDT Botulinum Toxin Injection Procedure Note Pre-Procedure Diagnosis: Spastic tetraplegia CP Indications: spasticity that adversely impacts function of transfers, risk for progressive knee flexion contractures. Janes has continued to respond favorably to Botox injections into the hamstringsto reduce the flexion tone and improve weightbearing for assisted transfers. They do report that they have not noticed any decrease in this ability as he gets closer to the next set of Botox. We therefore discussed the possibility of increasing the interval between injections. Exam shows knee flexor tone modified Kate score of 2. Crouched weightbearing, but ability to bear most of his weight through his legs for stand pivot transfers. After reviewing above history and findings we proceeded with Botulinum Toxin injections as reviewedbelow. Current outpatient prescriptions Medication Sig Dispense Refill ??? ERGOCALCIFEROL, VITAMIN D2, (VITAMIN D ORAL) Take by mouth once a week. ??? magnesium oxide (MAG-OX) 400 mg tablet Take 400 mg by mouth 2 times daily. ??? Ecucvzz-Knivhajaq-Vovu 333-133-5 mg Tab Take 1,000 mg by mouth. ??? METFORMIN HCL (METFORMIN ORAL) Take by mouth daily. Unsure of dose ??? divalproex (DEPAKOTE) 500 mg EC tablet Take 500 mg by mouth 2 times daily. ??? tolterodine (DETROL LA) 4 mg ER capsule Take 2 mg by mouth daily. ??? atenolol (TENORMIN) 50 mg tablet Take 50 mg by mouth daily. ??? allopurinol (ZYLOPRIM) 100 mg tablet Take 100 mg by mouth daily. ??? levothyroxine (SYNTHROID) 125 mcg tablet Take 125 mcg by mouth daily. ??? Mandeville's Wort 300 mg Cap Take 300 mg by mouth 3 times daily. ??? Chromium Picolinate 400 mcg Tab Take 400 mcg by mouth daily. ??? potassium chloride (KLOR-CON) 20 mEq packet Take 20 mEq by mouth daily with lunch. ??? simvastatin (ZOCOR) 80 mg tablet Take 80 mg by mouth at bedtime. ??? DICLOFENAC SODIUM/MISOPROSTOL (ARTHROTEC 50 ORAL) Take 50 mg by mouth 2 times daily. ??? VITAMIN B COMPLEX (B-50 COMPLEX ORAL) Take by mouth daily. ??? triamterene-hydrochlorothiazide (MAXZIDE) 75-50 mg per tablet Take 1 Tab by mouth daily. ??? acetaminophen (TYLENOL) 325 mg tablet Take 325 mg by mouth every 4 hours. prn ? ? COD LIVER OIL ORAL Take 400 mg by mouth daily. A&d 10,000IU/400mg Procedure Details Consent was obtained after discussing possible side effects and complications including risk for systemic absorption, generalized weakness, swallowing dysfunction, and respiratory suppression. The limb(s) for injection were identified and a time out called to re-identify the correct limb forinjection. After prepping the skin with alcohol overlying the following muscles, botlinum toxin wasinjected intramuscularly using EMG guidance as follows. BOTOX: Long head biceps femoris: Units Right 200 Left 200 Total botox units injected: 400 Total botox units wasted: 0 Plan: Return to clinic for assessment of botulinum toxin effectiveness in 6 week. An After Visit Summary was printed and given to the patient. * José Luis Rm RN - 10/25/2010 1434 EDT Botulinum toxin Lot #: [id number] Botulinum toxin expiration date: Feb 2013 Total Botulinum toxin units injected: 400 Total Botulinum toxin units wasted: 0 documented in this encounter Plan of Treatment Not on file documented as of this encounter Visit Diagnoses Diagnosis 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[facility] Primary Congenital quadriplegia documented in this encounter Historical Medications * This list may reflect changes made after this encounter. Medication Sig Dispensed Refills Start Date End Date magnesium oxide (MAG-OX) 400 mg tablet Take 400 mg by mouth 2 times daily. 10/25/2010 02/09/2015 ERGOCALCIFEROL, VITAMIN D2, (VITAMIN D ORAL) Take by mouth once a week. 10/25/2010 08/31/2011 added in this encounter Care Teams Wood Boatbuilder Relationship Specialty Start Date End Date Lucy Elizabeth MD [address] [place] [phone] PCP - General 09/28/08 03/08/21 documented as of this encounter
--- OUTSIDE RECORDS SUMMARY | 2023-10-25 14:43 | XMS_ITS | Encounter Summary ---
Author Organization [facility] Address [address] [place] [address] Care Team Providers Care Building Engineer Name Role Phone Unavailable Primary Care Provider Unavailabl e Encounter Details Date Type Department Care Team (Late st Contact Info) Description 06/12/2008 14:48 EDT Hospital Encounter [facility] [address] [place] [address] Naga Melendez MD [address] [place] [address] Social History Tobacco Use Types Packs/Day Years [...] 1:15 EST documented as of this encounter Plan of Treatment Not on file documented as of this encounter Visit Diagnoses Not on filedocumented in this encounter
--- OUTSIDE RECORDS SUMMARY | 2023-10-25 14:43 | XMS_ITS | Encounter Summary ---
Author Organization [facility] Address [address] [place] [address] Care Team Providers Care Oxygen System Tester Name Role Phone Lucy Elizabeth MD Primary Care Provider [phone] Reason for Referral * Consult (Routine/Next Available) - Closed Specialty Diagnoses / Procedures Referred By Rubina perkins Referred To Contact Physical Medicine and Rehabilitation / Physical Medicine and Rehab Diagnoses 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[facility]) Naga Melendez MD [address] [place] [address] Naga Melendez MD [address] [place] [address] Referral ID Status Reason Start Date Expiration Date V isits Requested Visits Authorized [id number] Closed Specialty Services Required 05/02/2011 03/04/2012 1 1 Question Answer Medication to be Prior Authorized: Botox for 3 month follow up. Comments Botox 400 units Reason for Visit * Reason Comments Botox Injection Encounter Details Date Type Department Care Team (Latest Contact Info) Description 05/02/2011 13:30 EST Office Visit [facility] Rehabilitation Therapy - [address] [address] Naga Melendez MD [address] [place] [phone] Quadriplegic infantile cerebral palsy (Primary Dx) Social History Tobacco Use Types Packs/Day Years Used Date Smoking Tobacco: Never Assessed Sex and Gender Information Value Date Recorded Sex Assigned at Not on file Gender Identity Male 06/12/2019 8:16 EDT Sexual Orientation Not on file documented as of this encounter Patient Instructions * Patient Instructions* Naga Melendez MD - 05/02/2011 13:45 EST Physical Medicine and Rehabilitation Naga Melendez M.D. [address] [place] [address] Discharge Instructions after Botulinum Toxin Injections Diet [...] for any questions you may have at [phone] x 2. The office is open Sunday-Sunday from 8:00 am to 5:00pm. On weekends or evenings, if you have a serious problem, please call your Senior Principal, Primary CarePhysician or go to your local Emergency Room. If for any reason a follow-up appointment was not provided or you need to reschedule an appointment, please call our office, the [facility]. Clinic ([phone] or [phone]) or the [facility] ([phone] or [phone]) if that is where you are seen. 410ss documented in this encounter Progress Notes * Naga Melendez MD - 05/02/2011 6416 EST Botulinum Toxin Injection Procedure Note Pre-Procedure Diagnosis: Spastic tetraplegia CP. Indications: spasticity that adversely impacts function of standing and transfers. Janes has continued to benefit from Botox injections into the hamstrings over the last couple of years, to decreaseknee flexor tone, improve his ability to strengthen his quadriceps to maintain standing and transfer ability. As things have been on a fairly regular schedule and beneficial, we have skipped the interval of visits at the 6-week followup and have just been coming back in for the Botox. Norberto reports that he continues to benefit from intermittent injections to maintain standing and transferability. On examination, knee flexor tone today, modified Kate score of 2. After reviewing above history and findings we proceeded with Botulinum Toxin injections as reviewedbelow. Procedure Details Consent was obtained after discussing [...] 200 Left 200 Total botox units injected: 200 Total botox units wasted: 0 Plan: Return to clinic for repeat botulinum injection in 3 months. * Perla Pugh - 05/02/2011 1329 EST Botulinum toxin Lot #: [id number] Botulinum toxin expiration date: JUN 2013 Botulinum toxin [facility] # [id number] Total Botulinum toxin units injected: 400 Total Botulinum toxin units wasted: 0 documented in this encounter Plan of Treatment Scheduled Referrals Name Type Priority Associated Diagnoses Order Schedule AMB MEDICATION PRIOR AUTHORIZATION Outpatient Referral Routine Quadriplegic infantile cerebral palsy Ordered: 05/02/2011 documented as of this encounter Visit Diagnoses Diagnosis Quadriplegic infantile cerebral palsy- Primary Congenital quadriplegia documented in this encounter Historical Medications * This list may reflect changes made after this encounter. Medication Sig Dispensed Refills Start Date End Date KINNEY'S YEAST ORAL Take by mouth 2 times daily. 08/31/2011 added in this encounter Care Teams Oxygen System Tester Relationship Specialty Start Date End Date Luyc Elizabeth MD [address] [place] [phone] PCP - General 09/28/08 03/08/21 documented as of this encounter
--- OUTSIDE RECORDS SUMMARY | 2023-10-25 14:43 | XMS_ITS | Encounter Summary ---
Author Organization [facility] Address [address] [place] [address] Care Team Providers Care Clinical Nursing Intern Name Role Phone Lucy Elizabeth MD Primary Care Provider [phone] Encounter Details Date Type Department Care Team (Late st Contact Info) Description 08/11/2009 Abstract Used for ABSTRACTING Data [phone] Lucy Elizabeth MD [address] [place] [phone] Quadriplegic infantile cerebral palsy (HCC-CMS) Social History Tobacco Use Types Packs/Day Years Used Date Smoking Tobacco: Never Assessed Sex and Gender Information Value Date Recorded Sex Assigned at Not on file Gender Identity Male 06/12/2019 8:16 EDT Sexual Orientation Not on file documented as of this encounter Plan of Treatment Not on file documented as of this encounter Visit Diagnoses Diagnosis 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HCC-CMS) Congenital quadriplegia documented in this encounter Care Teams Clinical Nursing Intern Relationship Specialty Start Date End Date Lucy Elizabeth MD [address] [place] [phone] PCP - General 09/28/08 03/08/21 documented as of this encounter
--- OUTSIDE RECORDS SUMMARY | 2023-10-25 14:43 | XMS_ITS | Encounter Summary ---
Author Organization [facility] Address [address] [place] [address] Care Team Providers Care Transfer Coordinator Name Role Phone Lucy Elizabeth MD Primary Care Provider [phone] Reason for Visit * Reason Comments Botox Injection Encounter Details Date Type Department Care Team (Latest Contact Info) Description 10/21/2009 9:00 EDT Office Visit [facility] Rehabilitation Therapy [address] [place], [place] [address] Naga Melendez MD [address] [place] [address] Quadriplegic infantile cerebral palsy (HCC-CMS) (Primary Dx) Social History Tobacco Use Types Packs/Day Years Used Date Smoking Tobacco: Never Assessed Sex and Gender Information Value Date Recorded Sex Assigned at Not on file Gender Identity Male 06/12/2019 8:16 EDT Sexual Orientation Not on file documented as of this encounter Patient Instructions * Patient Instructions* Naga Melendez MD - 10/21/2009 9:56 EDT Physical Medicine and Rehabilitation Naga Melendez M.D. [address] [place] [address] Discharge Instructions after Botulinum Toxin Injections Diet [...] for any questions you may have at [phone] x 2. The office is open Sunday-Sunday from 8:00 am to 5:00pm. On weekends or evenings, if you have a serious problem, please call your Clinical Specialty Rep, Primary CarePhysician or go to your local Emergency Room. If for any reason a follow-up appointment was not provided or you need to reschedule an appointment, please call our office, the [facility] ([phone] or [phone]) or the [facility] ([phone] or [phone]) if that is where you are seen. 410ss documented in this encounter Progress Notes * Nereida Javier - 10/21/2009 1245 EDT Botulinum toxin Lot #: [id number] Botulinum toxin expiration date: 04/17 Total botox units injected: 400 Total botox units wasted: 0 * Naga Melendez MD - 10/21/2009 1001 EDT Botulinum Toxin Injection Procedure Note Pre-Procedure Diagnosis: Spastic Quadraplegic CP Indications: spasticity that adversely impacts function of stand pivot transfers and right arm function. PE: Tone in elbow flexors MAS1+, WF MAS of 3. Hamstrings MAS 2 After reviewing above history and findings we [...] intramuscularly using EMG guidance as follows. BOTOX: Biceps: Units Right 70 Brachioradialis: Units Right 70 Flexor carpi radialis: Units Right 60 Short head biceps femoris: Units Right 30 Left 30 Long head biceps femoris: Units Right 70 Left 70 Total botox units injected: 400 Total botox units wasted: 0 Plan: Return to clinic for assessment of botulinum toxin effectiveness in 6 weeks. documented in this encounter Plan of Treatment Not on file documented as of this encounter Visit Diagnoses Diagnosis 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HCC-CMS)- Primary Congenital quadriplegia documented in this encounter Care Teams Transfer Coordinator Relationship Specialty Start Date End Date Lucy Elizabeth MD [address] [place] [phone] PCP - General 09/28/08 03/08/21 documented as of this encounter
--- OUTSIDE RECORDS SUMMARY | 2023-10-25 14:43 | XMS_ITS | Encounter Summary ---
Author Organization [facility] Address [address] [place] [address] Care Team Providers Care Field Consultant Name Role Phone Unavailable Primary Care Provider Unavailabl e Encounter Details Date Type Department Care Team (Late st Contact Info) Description 02/04/2008 13:41 EST Hospital Encounter [facility] - Other [address] [place] [address] Lucy Elizabeth MD [address] [place] [phone] Social History Tobacco Use Types Packs/Day [...]
--- OUTSIDE RECORDS SUMMARY | 2023-10-25 14:43 | XMS_ITS | Encounter Summary ---
Author Organization [facility] Address [address] [place] [address] Care Team Providers Care Sales Representative Facility Services Name Role Phone Lucy Elizabeth MD Primary Care Provider Reason for Referral * Consult (Routine) - Denied Specialty Diagnoses / Procedures Referred By Rubina t Referred To Contact Diagnoses 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HCC-CMS) Naga Melendez MD [address] [place] [phone] Referral ID Status Reason Start Date Expiration Date V isits Requested Visits Authorized [id number] Denied Specialty Services Required 04/07/2010 1 0 Question Answer Medication to be Prior Authorized: BOTOX for next visit. Comments Botox 400 units Reason for Visit * Reason Comments Follow-up post botox Encounter Details Date Type Department Care Team (Latest Contact Info) Description 04/07/2010 15:30 EST Office Visit [facility] Rehabilitation Therapy - [place] [phone] [place] [address] Naga Melendez MD [address] [place] [phone] Quadriplegic infantile cerebral palsy (HCC-CMS) (Primary Dx) Discharge Disposition: Auto Discharge Social History Tobacco Use Types Packs/Day Years Used Date Smoking Tobacco: Never Assessed Sex and Gender Information Value Date Recorded Sex Assigned at Not on file Gender Identity Male 06/12/2019 8:16 EDT Sexual Orientation Not on file documented as of this encounter Discharge Disposition Disposition Code Departure Means Destination Auto Discharge documented in this encounter Progress Notes * Naga Melendez MD - 04/12/2010 0925 EST PHYSICAL MEDICINE / REHABILITATION PROGRESS/FOLLOWUP NOTE - 04/07/2010 REASON FOR FOLLOWUP: History of spastic quadriplegia affecting the right slightly greater than left, status post Botox injections to the hamstrings and the right upper extremity flexors back in mid to late January: SUBJECTIVE: Janes is a 39-year-old gentleman with above-mentioned history. When he was seen in January, we did bilateral hamstring injections as well as wrist, elbow and thumb flexor injections. Janes has had continued benefit from the hamstring injections in regard to improved ability to bear weight through his legs, decreased pain, improved ability to do some independent transfers. Janes isalone at times and is able to transfer from his wheelchair to the commode and back and has not had any falls since the last time I saw him. He is also able to transfer himself back into bed, though he is unable to get out of bed once in it. He does have home health assistance at times as well. In regard to the arm injections, Janes does not note specifically any benefits in regard to improved arm use or decrease in tone. However, his father added in that as Janes does need to use both arms for transfers on and off in the commode, it may be that Janes's improved safety and lack of falls with those transfers may include the fact that he is able to reach a little bit more effectively with his right arm. OBJECTIVE: Examination reveals continued significant tightness of the right arm. Tone generally modified Kate score of 2 in the elbow, 3 in the wrist and 2 in the thumb adductor. Lower extremity exam reveals continued but stable knee flexion contractures at 32 degrees on the left, 40 degrees onthe right. Janes was able to, with minimal contact guard assistance do a transfer from wheelchair to the examination table and back. He stands with a significantly flexed knee posture but is able to bear weight through his legs and use his knee extension power to help get up in his wheelchair. IMPRESSION AND PLAN: In summary, Janes continues to benefit from Botox injections, particularly into the lower extremities, in regard to improved ability to bear weight through his legs for more independent transfers, decrease burden of care on caregivers. The right upper extremity injection response is a bit equivocal. As we are planning on repeating the leg injections in a few weeks, we will likely repeat the right arm injections as well and see if repeating them at the 3-month interval potentially adds some gradual progressive benefits. We will look to see him back in 2 to 3 weeks where we will repeat the hamstring injections and reevaluate the right upper extremity injections as well. Electronically Signed by Naga Melendez MD 04/12/2010 09:25 Naga Melendez MD - Naga Melendez MD - [facility] Job ID: SM Doc ID: [id number] Ext Doc ID: [id number] cc: Lucy Elizabeth MD * Naga Melendez MD - 04/07/2010 1543 EST This office note has been dictated. documented in this encounter Plan of Treatment Scheduled Referrals Name Type Priority Associated Diagnoses Order Schedule AMB MEDICATION PRIOR AUTHORIZATION Outpatient Referral Routine Quadriplegic infantile cerebral palsy ([facility]-CMS) Ordered: 04/07/2010 documented as of this encounter Visit Diagnoses Diagnosis 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[facility]-CMS)- Primary Congenital quadriplegia documented in this encounter Care Teams Sales Representative Facility Services Relationship Specialty Start Date End Date Lucy Elizabeth MD [address] [place] [phone] PCP - General 09/28/08 03/08/21 documented as of this encounter
--- OUTSIDE RECORDS SUMMARY | 2023-10-25 14:43 | XMS_ITS | Encounter Summary ---
Author Organization [facility] Address [address] [place] [address] Care Team Providers Care Documentation Coordinator Name Role Phone Unavailable Primary Care Provider Unavailabl e Encounter Details Date Type Department Care Team (Late st Contact Info) Description 05/15/2008 12:31 EDT Hospital Encounter [facility] [address] [place] [address] Naga Melendez MD [address] [place] [phone] Social History Tobacco Use Types Packs/Day Years [...]
--- OUTSIDE RECORDS SUMMARY | 2023-10-25 14:43 | XMS_ITS | Encounter Summary ---
Author Organization [facility] Address [address] [place] [address] Care Team Providers Care Lithographic Photographer Apprentice Name Role Phone Unavailable Primary Care Provider Unavailabl e Encounter Details Date Type Department Care Team (Late st Contact Info) Description 01/09/2008 Before PRISM Converted Visit ([facility]) [facility] - [facility] conversion [address] [place] [address] Naga Melendez MD [address] [place] [phone] Social History Tobacco Use Types Packs/Day Years Used Date Smoking Tobacco: Never Assessed Sex and Gender Information Value Date Recorded Sex Assigned at Not on file Gender Identity Male 06/12/2019 8:16 EDT Sexual Orientation Not on file documented as of this encounter Procedure Notes * Naga Melendez MD - 09/26/2008 2236 EDT PHYSICAL MEDICINE / REHABILITATION OUTPATIENT FOLLOW UP AND PERFORMANCE OF BOTULINUM TOXIN INJECTIONS SERVICE DATE: 01/17/2008 INJECTION PROCEDURE REPORT ATTENDING PHYSICIAN: Naga Melendez MD PRIMARY CARE PROVIDER: Lucy Elizabeth MD REFERRING PHYSICIAN: REASON FOR FOLLOWUP AND INJECTION History of spastic quadriplegia with significant hamstring spasticity and knee pain as well and limitation in weight bearing for transfers. INTERVAL HISTORY He did have a fall while trying to independently transfer himself from the commode to his wheelchair at home. This did not lead to any significant injury. OBJECTIVE On exam, he continues to have significant lower extremity spasticity with knee flexion tone. INJECTION PROCEDURE We decided to proceed with the first set of Botox injections to the hamstrings today. After discussing possible side effects and complications associated with utilizing botulinum toxin including systemic absorption, respiratory suppression, and swallowing dysfunction, consent was obtained. A total of 300 units was used today. We used 150 units on each side. Several injection sites into the hamstrings were done bilaterally. EMG localization was used. Good localization was obtained based on hyperactive motor units with needle electrode insertion. CHARLA Marrero will have PT review a home exercise program with the family and other caregiversto begin working on increasing range of motion at the knees in particular, but other joints as well. I will follow up with him in six weeks to assess his response to this first set of injections. Signed by Naga Melendez MD 01/21/2008 13:38 Naga Melendez MD D: - Naga Melendez MD - Job ID: [id number] Doc ID: [id number] cc: MD Millicent Cooper PA documented in this encounter Consult Notes * Naga Melendez MD - 09/25/2008 0012 EDT PHYSICAL MEDICINE / REHABILITATION CONSULTATION - 01/09/2008 OUTPATIENT CLINIC DATE OF SERVICE: 01/09/2008 ATTENDING PHYSICIAN: Naga Melendez MD REFERRING PHYSICIAN: Lucy Elizabeth MD REASON FOR EVALUATION/CONSULTATION I have been asked to see Mr. Gooden at the request of for evaluation of right shoulder pain, history of spastic quadriplegic cerebral palsy, and increasing difficulty with transfers. HISTORY OF PRESENT ILLNESS Janes Gooden is a 37gentleman with a history of spastic quadriplegic cerebral palsy. He presents today with his parents who are very involved in [facility] care. He lives [place] [facility]. had a recent shoulder injury several weeks ago where he apparently has increasing shoulder pain that actuallyhas been getting quite a bit better over the last few weeks with therapy services. This is apparently leading to some difficulty in his ability to work on his transfers. This injury occurred about two months ago. It was during ???exercise.?? has regained very good range of motion apparently with ongoing therapy services and is describing minimal pain in the region at this point. This appointment apparently had been scheduled several weeks ago but due to the limitations in my schedule, they were unable to get in until now and during this duration, he has had significant improvement. A new patient intake questionnaire was filled out by the family. It was reviewed and signed by me. 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 He has limitmobility and uses a wheelchair for his mobility. He had some ability to do weightbearing transfers;however, his father tendsto do dependent transfers with him. His mother allows him to do a squat pivot transfer which has become more difficult with time due to knee flexion contractures and pain. MEDICATIONS Current medication list was updated in our record. Of note, he is on seizure medication Depakote. He is on levothyroxine, two blood pressure medications, triamhydrochlorothiazide, and Atenolol. He also takes Detrol for his bladder, and is on multiple supplements. He has been taking Arthrotec most recently for his recent right shoulder injury which has significantly improved. He has done some supported work in the past through [facility] [employer]. PHYSICAL EXAMINATION On examination today, Janes was a very pleasant gentleman. His speech was dysarthric, and he was not always totally appropriate in the conversation. He demonstrates good passive and active range of motion at the right shoulder with no pain complaints today. There was negative Edmonds or Neermaneuvers. He had good range of motion passively in the elbow and hands and wrists. He has spinal curvature that was not quantified today. He has had previous spinal fusion. I observed his father do a dependent transfer to the examination table. While Janes was lying supine, he had bilateral knee flexion contractures, 35 degrees on the left, 40 degrees on the right. He had 70 degree popliteal angle on the right and 60 degree popliteal angle on the left. Ankle dorsiflexion was well past neutral bilaterally. He had symmetric hip abduction to about 60 degrees bilaterally. Positive hyperreflexia and moderate increased tone in the lower extremities, modified Kate score of 1+ in the knee flexors and extensors. Modified Kate score of 2 in the ankle plantar flexors. SUMMARY In summary, Janes Gooden is a 37gentleman with a history of spastic quadriplegic cerebral palsy. The initial reason for referral was related to right shoulder pain and decreasing transfers. His shoulder seem to have essentially resolvedat this point. However, based on his current knee range of motion and spasticity, I think that from a functional standpoint and from a pain management standpoint,he may benefit from Botox injections into the bilateral hamstrings to decrease knee flexiontone andperhaps improve knee extension range. This would potentially allow for improved ability to maintainweight bearing through the legs during squat pivot transfers. We discussed other options for gradual knee extension range that would potentially include hamstring releases at some point. We also discussed the possibility of systemic medication for spasticity like Baclofen. After much discussion, itwas decided that Botox injections to the hamstrings would be the best choice initially. Family and Jonathan li are in agreement with that plan. RECOMMENDATIONS I will follow up with him in the next several weeks to do the first set of Botox injections into his hamstrings. After that we will discuss revisiting therapeutic services to work on standing strength and transfers. I spent a total of one hour with the [facility] today. Entire time was spent face to face, majority oneducation and coordination of care. Signed by Naga Melendez MD 01/13/2008 12:40 Naga Melendez MD - Naga Melendez MD - Job ID: [id number] Doc ID: [id number] cc: MD Millicent Cooper PA documented in this encounter Plan of Treatment Not on file documented as of this encounter Visit Diagnoses Not on filedocumented in this encounter
--- OUTSIDE RECORDS SUMMARY | 2023-10-25 14:43 | XMS_ITS | Encounter Summary ---
Author Organization [facility] Address [address] [place] [address] Care Team Providers Care Cardiology Technologist Name Role Phone Unavailable Primary Care Provider Unavailabl e Encounter Details Date Type Department Care Team (Late st Contact Info) Description 01/09/2008 14:27 EST Hospital Encounter [facility] [address] [place] [address] Naga Melendez MD [address] [place] [phone] Social History Tobacco Use Types Packs/Day Years [...]
--- OUTSIDE RECORDS SUMMARY | 2023-10-25 14:43 | XMS_ITS | Encounter Summary ---
Author Organization [facility] Address [address] [place] [address] Care Team Providers Care Ship'S Master Name Role Phone Unavailable Primary Care Provider Unavailabl e Encounter Details Date Type Department Care Team (Late st Contact Info) Description 11/12/2001 17:35 EDT Hospital Encounter [place] [address] [place] [address] Lucy Elizabeth MD [address] [place] [phone] Social History Tobacco Use Types Packs/Day Years [...]
--- OUTSIDE RECORDS SUMMARY | 2023-10-25 14:43 | XMS_ITS | Encounter Summary ---
Author Organization [facility] Address [address] [place] [address] Care Team Providers Care Meat Washer Name Role Phone Unavailable Primary Care Provider Unavailabl e Encounter Details Date Type Department Care Team (Late st Contact Info) Description 04/03/2008 12:38 EST Hospital Encounter [facility] [address] [place] [address] Naga Melendez MD [address] [place] [phone] Social History Tobacco Use Types Packs/Day Years [...]
--- OUTSIDE RECORDS SUMMARY | 2023-10-25 14:43 | XMS_ITS | Encounter Summary ---
Author Organization [facility] Address [address] [place] [address] Care Team Providers Care Licensed Massage Practitioner Name Role Phone Unavailable Primary Care Provider Unavailabl e Encounter Details Date Type Department Care Team (Late st Contact Info) Description 10/23/2001 9:45 EDT - 10/23/2001 11:[address] [facility] [address] [place] [address] Manuel Nunez MD [address] [facility], [address] [place] [phone] Discharge Disposition: Auto Discharge Social History Tobacco Use Types Packs/Day Years Used Date Smoking Tobacco: Never Assessed Sex and Gender Information Value Date Recorded Sex Assigned at Not on file Gender Identity Male 06/12/2019 8:16 EDT Sexual Orientation Not on file documented as of this encounter Discharge Disposition Disposition Code Departure Means Destination Auto Discharge documented in this encounter Plan of Treatment Not on file documented as of this encounter Procedures Procedure Name Priority Date/Time Associated Diagnosis Comments RAD US RETROPERITONEAL COMPLETE Routine 10/23/2001 11:41 EDT documented in this encounter Results * RAD US RETROPERITONEAL COMPLETE (10/23/2001 11:41 EDT) Anatomical Region Laterality Modality Other 10/23/2001 11:4 1 EDT Impressions 11/30/2008 2:35 EDT IMPRESSION: 1. No evidence of hydronephrosis. 2. The bladder was only partially distended, and therefore, difficult to evaluate for bladder wall thickening. 3. Slightly enlarged prostate. D 10/23/01 T 10/24/01 /chanda Narrative 11/30/2008 2:35 EDT U/S RETROPERITONEAL COMPLETE, NEUROGENIC BLADDER, HEMATURIA, R/O HYDRO RETROPERITONEAL ULTRASOUND 10/23/01 FINDINGS: The right kidney measures 9.7cm and the left kidney measures 9.9cm. Both kidneys demonstrate no evidence of cortical thinning, hydronephrosis, calculi or masses. The urinary bladder was only partially distended as the patient had voided one hour previously. The prostate gland does appear slightly enlarged and measures 3.8 x 2.5 x 3.7cm. Procedure Note Sandra Finnegan MD - 11/30/2008 U/S RETROPERITONEAL COMPLETE, NEUROGENIC BLADDER, HEMATURIA, R/O HYDRO RETROPERITONEAL ULTRASOUND 10/23/01 FINDINGS: The right kidney measures 9.7cm and the left kidney measures 9.9cm. Both kidneys demonstrate no evidence of cortical thinning, hydronephrosis, calculi or masses. The urinary bladder was only partially distended as the patient had voided one hour previously. The prostate gland does appear slightly enlarged and measures 3.8 x 2.5 x 3.7cm. IMPRESSION IMPRESSION: 1. No evidence of hydronephrosis. 2. The bladder was only partially distended, and therefore, difficult to evaluate for bladder wall thickening. 3. Slightly enlarged prostate. D 10/23/01 T 10/24/01 /chanda Manuel Nunez MD [facility] documented in this encounter Visit Diagnoses Not on filedocumented in this encounter
--- OUTSIDE RECORDS SUMMARY | 2023-10-25 14:43 | XMS_ITS | Encounter Summary ---
Author Organization [facility] Address [address] [place] [address] Care Team Providers Care Township Clerk Name Role Phone Lucy Elizabeth MD Primary Care Provider [phone] Reason for Visit * Reason Comments Botox Injection * Consult (Routine/Next Available) - Closed Specialty Diagnoses / Procedures Referred By Rubina perkins Referred To Contact Physical Medicine and Rehabilitation / Physical Medicine and Rehab Diagnoses 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HCC-CMS) Naga Melendez MD [address] [place] [phone] Naga Melendez MD [address] [place] [phone] Referral ID Status Reason Start Date Expiration Date V isits Requested Visits Authorized [id number] Closed Specialty Services Required 11/20/2012 11/19/2013 4 4 Encounter Details Date Type Department Care Team (Latest Contact Info) Description 06/13/2013 14:00 EDT Office Visit [facility] Rehabilitation Therapy - [address] [phone] Naga Melendez MD [address] [place] [phone] 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HCC-CMS) (Primary Dx) Social History Tobacco Use Types Packs/Day Years Used Date Smoking Tobacco: Never Assessed Sex and Gender Information Value Date Recorded Sex Assigned at Not on file Gender Identity Male 06/12/2019 8:16 EDT Sexual Orientation Not on file documented as of this encounter Patient Instructions * Patient Instructions* Mylene Reese. - 06/13/2013 12:47 EDT We ask that you notify us at [...] timely manner for all of our patients. documented in this encounter Progress Notes * Naga Melendez MD - 06/13/2013 5764 EDT Botulinum Toxin Injection Procedure Note Pre-Procedure Diagnosis: Spastic tetraplegia CP Indications: spasticity that adversely impacts transfers. Janes benefits from Botox injections into the hamstrings to reduce knee flexor tone, allowing him more success with weightbearing for stand or squat pivot transfers. He denies any side effects from previous injections. Janes is celebrating his anniversary of being adopted by his parents when he was 10 months old. They are going out to celebrate after our appointment today. Exam reveals knee flexor tightness and tone modified Kate score of 2. Procedure [...] printed and given to the patient. * Lani Murcia LPN - 06/13/2013 1311 EDT Botulinum toxin Lot #: [id number] Botulinum toxin expiration date: DEC [address] [facility] # [id number] Total Botulinum toxin units injected: 400 Total Botulinum toxin units wasted: 0 documented in this encounter Plan of Treatment Not on file documented as of this encounter Visit Diagnoses Diagnosis 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HCC-CMS)- Primary Congenital quadriplegia documented in this encounter Care Teams Township Clerk Relationship Specialty Start Date End Date Lucy Elizabeth MD [address] [place] [phone] PCP - General 09/28/08 03/08/21 documented as of this encounter
--- OUTSIDE RECORDS SUMMARY | 2023-10-25 14:43 | XMS_ITS | Encounter Summary ---
Author Organization [facility] Address [address] [place] [address] Care Team Providers Care Rail Operations Controller Name Role Phone Lucy Elizabeth MD Primary Care Provider [phone] Encounter Details Date Type Department Care Team (Late st Contact Info) Description 07/18/2012 Documentation Visit [facility] Rehabilitation Therapy - [address] [phone] Mohini Rivas, RN [address] [place] [address] Social History Tobacco Use Types Packs/Day Years Used Date Smoking Tobacco: Never Assessed Sex and Gender Information Value Date Recorded Sex Assigned at Not on file Gender Identity Male 06/12/2019 8:16 EDT Sexual Orientation Not on file documented as of this encounter Progress Notes * Mohini Rivas, KAYLEN - 07/18/2012 0420 EDT Referral for evaluation and treatment of lower extremity edema from [place]iatry. [place] and [place]. They prefer he be seen in the [facility], as it is a long drive for both of them to come to [place]. This nurse gave them a list of lymphedema providers that are in the [facility] area, including [facility], with w otoniel the patient is already receiving services. Janes's mother will call Dr Melendez's office aftershe talks with [facility], to make arrangements to have the referral faxed [facility]. documented in this encounter Plan of Treatment Not on file documented as of this encounter Visit Diagnoses Not on filedocumented in this encounter Care Teams Rail Operations Controller Relationship Specialty Start Date End Date Lucy Elizabeht MD [address] [place] [phone] PCP - General 09/28/08 03/08/21 documented as of this encounter
--- OUTSIDE RECORDS SUMMARY | 2023-10-25 14:43 | XMS_ITS | Encounter Summary ---
Author Organization [facility] Address [address] [place] [address] Care Team Providers Care Green Building Energy Engineer Name Role Phone Unavailable Primary Care Provider Unavailabl e Encounter Details Date Type Department Care Team (Late st Contact Info) Description 10/28/2003 12:02 EDT Hospital Encounter [address] [address] Manuel Nunez MD [address] [place] [address], [address] [place] [phone] Discharge Disposition: Auto Discharge Social History Tobacco [...] Diagnosis Comments RAD US RETROPERITONEAL COMPLETE Routine 10/28/2003 13:34 EDT documented in this encounter Results * RAD US RETROPERITONEAL COMPLETE (10/28/2003 13:34 EDT) Anatomical Region Laterality Modality Other 10/28/2003 13:3 4 EDT Narrative 11/12/2008 16:35 EDT RENAL U/S, NEUROGENIC BLADDER R/O HYDRONEPHROSIS RETROPERITONEUM COMPLETE FINDINGS: The retroperitoneum is scanned. The kidneys are both identified. The left kidney measures 10.3 x 5.6 cm. The right kidney measures 8.2 x 4.1 cm. The bladder is smooth and free of filling defects. The patient was unable to void. The prostate is 4 cm in diameter. CONCLUSIONS: 1. Asymmetric size of the kidneys. The right kidney is smaller than the left. No focal disease is seen. 2. The patient was unable to void. /tns Procedure Note Sumit Guevara MD - 11/12/2008 RENAL U/S, NEUROGENIC BLADDER R/O HYDRONEPHROSIS RETROPERITONEUM COMPLETE FINDINGS: The retroperitoneum is scanned. The kidneys are both identified. The left kidney measures 10.3 x 5.6 cm. The right kidney measures 8.2 x 4.1 cm. The bladder is smooth and free of filling defects. The patient was unable to void. The prostate is 4 cm in diameter. CONCLUSIONS: 1. Asymmetric size of the kidneys. The right kidney is smaller than the left. No focal disease is seen. 2. The patient was unable to void. /tns Manuel Nunez MD IM US ORDERAB LES documented in this encounter Visit Diagnoses Not on filedocumented in this encounter
--- OUTSIDE RECORDS SUMMARY | 2023-10-25 14:43 | XMS_ITS | Encounter Summary ---
Author Organization [facility] Address [address] [place] [address] Care Team Providers Care Shellfish Shucker Name Role Phone Lucy Elizabeth MD Primary Care Provider [phone] Reason for Visit * Reason Comments Botox Injection Encounter Details Date Type Department Care Team (Latest Contact Info) Description 04/21/2010 13:30 EST Office Visit [facility] Rehabilitation Therapy [address] [place], [place] [phone] Naga Melendez MD [address] [place] [address] Quadriplegic infantile cerebral palsy (HCC-CMS) (Primary Dx) Discharge Disposition: Auto Discharge Social History Tobacco Use Types Packs/Day Years Used Date Smoking Tobacco: Never Assessed Sex and Gender Information Value Date Recorded Sex Assigned at Not on file Gender Identity Male 06/12/2019 8:16 EDT Sexual Orientation Not on file documented as of this encounter Patient Instructions * Patient Instructions* Naga Melendez MD - 04/21/2010 13:51 EST Physical Medicine and Rehabilitation Naga Melendez M.D. [address] [place] [address] Discharge Instructions after Botulinum Toxin Injections Diet [...] for any questions you may have at [phone] x 2. The office is open Sunday-Sunday from 8:00 am to 5:00pm. On weekends or evenings, if you have a serious problem, please call your Urology Nurse, Primary CarePhysician or go to your local Emergency Room. If for any reason a follow-up appointment was not provided or you need to reschedule an appointment, please call our office, the [facility] ([phone] or [phone]) or the [facility] ([phone] or [phone]) if that is where you are seen. 06/12ss documented in this encounter Discharge Disposition Disposition Code Departure Means Destination Auto Discharge documented in this encounter Progress Notes * Nereida Javier - 04/21/2010 1646 EST Botulinum toxin Lot #: [id number] Botulinum toxin expiration date: 08/15 Total Botulinum toxin units injected: 400 Total Botulinum toxin units wasted: 0 * Naga Melendez MD - 04/21/2010 1408 EST Botulinum Toxin Injection Procedure Note Pre-Procedure Diagnosis: Spastic tetraplegia CP Indications: spasticity that adversely impacts function of transfers. Exam: shows knee flexor tone MAS 3. Right elbow flexor MAS 1+. After reviewing above history and findings we [...] guidance as follows. BOTOX: Biceps: Units Right 50 Short head biceps femoris: Units Right 75 Left 75 Long head biceps femoris: Units Right 100 Left 100 Total botox units injected: 400 Total botox units wasted: 0 Plan: Return to clinic for assessment of botulinum toxin effectiveness in 2 months. documented in this encounter Plan of Treatment Not on file documented as of this encounter Visit Diagnoses Diagnosis 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[facility])- Primary Congenital quadriplegia documented in this encounter Care Teams Shellfish Shucker Relationship Specialty Start Date End Date Lucy Elizabeth MD [address] [place] [phone] PCP - General 09/28/08 03/08/21 documented as of this encounter
--- OUTSIDE RECORDS SUMMARY | 2023-10-25 14:43 | XMS_ITS | Encounter Summary ---
Author Organization [facility] Address [address] [place] [address] Care Team Providers Care Retail Sales Merchandiser Development Name Role Phone Lucy Elizabeth MD Primary Care Provider [phone] Reason for Referral * Consult (Routine/Next Available) - Closed Specialty Diagnoses / Procedures Referred By Conteusebia t Referred To Contact Physical Medicine and Rehabilitation / Physical Medicine and Rehab Diagnoses 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[facility]) Naga Melendez MD [address] [facility] [address] [place] [address] Naga Melendez MD [address] [place] [address] [place] [address] Referral ID Status Reason Start Date Expiration Date V isits Requested Visits Authorized [id number] Closed Specialty Services Required 03/18/2013 1 0 Question Answer Medication to be Prior Authorized: Botox for next visit tomorrow Comments Botox 400 units Encounter Details Date Type Department Care Team (Late st Contact Info) Description 03/18/2013 Orders Only [facility] Rehabilitation Therapy - [address] [id number] Naga Melendez MD [address] [place] [address] [place] [phone] 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[facility]) (Primary Dx) Social History Tobacco Use [...] PRIOR AUTHORIZATION Outpatient Referral Routine 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[facility]) Ordered: 03/18/2013 documented as of this encounter Visit Diagnoses Diagnosis 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[facility])- Primary Congenital quadriplegia documented in this encounter Care Teams Retail Sales Merchandiser Development Relationship Specialty Start Date End Date Lucy Elizabeth MD [address] [place] [phone] PCP - General 09/28/08 03/08/21 documented as of this encounter
--- OUTSIDE RECORDS SUMMARY | 2023-10-25 14:43 | XMS_ITS | Encounter Summary ---
Author Organization [facility] Address [address] [place] [address] Care Team Providers Care Drafter Assistant Name Role Phone Lucy Elizabeth MD Primary Care Provider [phone] Reason for Visit * Reason Comments Botox Injection * Consult (Routine/Next Available) - Closed Specialty Diagnoses / Procedures Referred By Rubina perkins Referred To Contact Physical Medicine and Rehabilitation / Physical Medicine and Rehab Diagnoses 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HCC-CMS) Naga Melendez MD [address] [place] [phone] Naga Melendez MD [address] [place] [phone] Referral ID Status Reason Start Date Expiration Date V isits Requested Visits Authorized [id number] Closed Specialty Services Required 11/20/2012 11/19/2013 4 4 Encounter Details Date Type Department Care Team (Latest Contact Info) Description 09/12/2013 14:[address] [facility] Rehabilitation Therapy - [address] [phone] Naga Melendez MD [address] [place] [phone] 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HCC-CMS) (Primary Dx) Social History Tobacco Use Types Packs/Day Years Used Date Smoking Tobacco: Never Assessed Sex and Gender Information Value Date Recorded Sex Assigned at Not on file Gender Identity Male 06/12/2019 8:16 EDT Sexual Orientation Not on file documented as of this encounter Patient Instructions * Patient Instructions* Mylene Reese - 09/12/2013 14:05 EDT We ask that you notify us [...] Physical Medicine and Rehabilitation Naga Melendez M.D. [address] [place] [address] Discharge Instructions after Botulinum Toxin Injections Diet [...] for any questions you may have at [phone] x 2. The office is open Sunday-Sunday from 8:00 am to 5:00pm. On weekends or evenings, if you have a serious problem, please call your Mortar Worker, Primary CarePhysician or go to your local Emergency Room. If for any reason a follow-up appointment was not provided or you need to reschedule an appointment, please call our office, the [facility] ([phone] or [phone]) or [facility] ([phone] or [phone]) if that is where you are seen. 06/12ss documented in this encounter Progress Notes * Naga Melendez MD - 09/12/2013 5966 EDT Botulinum Toxin Injection Procedure Note Pre-Procedure Diagnosis: Spastic tetraplegia Indications: spasticity that adversely impacts crouching and transfers. He continues to be able to do independent transfers at home with the ongoing injections. No negative side FX. Exam shows knee contractures at around 40 degrees. Tone 3 MAS. Procedure Details Consent was obtained after discussing [...] given to the patient. Follow up visit 12/16/2013 * Viri Sung RN - 09/12/2013 0193 EDT Botulinum toxin Lot #: [id number] Botulinum toxin expiration date: Mar 2016 Botulinum toxin [facility] # [id number] Total Botulinum toxin units injected: 400 Total Botulinum toxin units wasted: 0 documented in this encounter Plan of Treatment Not on file documented as of this encounter Visit Diagnoses Diagnosis 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[facility])- Primary Congenital quadriplegia documented in this encounter Care Teams Drafter Assistant Relationship Specialty Start Date End Date Lucy Elizabeth MD [address] [place] [phone] PCP - General 09/28/08 03/08/21 documented as of this encounter
--- OUTSIDE RECORDS SUMMARY | 2023-10-25 14:43 | XMS_ITS | Encounter Summary ---
Author Organization [facility] Address [address] [place] [address] Care Team Providers Care Plastic Parts Fabricator Trimmer Name Role Phone Lucy Elizabeth MD Primary Care Provider [phone] Reason for Referral * Consult (Routine/Next Available) - Denied Specialty Diagnoses / Procedures Referred By Rubina perkins Referred To Contact Physical Medicine and Rehabilitation / Physical Medicine and Rehab Diagnoses 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[facility]) Lower extremity edema Devon Melendez MD [address] [place] [address] Devon Melendez MD [address] [place], [place] [address] Referral ID Status Reason Start Date Expiration Date V isits Requested Visits Authorized [id number] Denied Specialty Services Required 07/18/2012 1 0 Question Answer Medication to be Prior Authorized: BOTOX FOR today 07/18 Comments Botox 400 units * Consult (Routine/Next Available) - Closed Specialty Diagnoses / Procedures Referred By Rubina perkins Referred To Contact Rehab Therapies Diagnoses Lower extremity edema 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HCC-CMS) Devon Melendez MD [address] [place] [address] [facility] [address] [place] [address] Referral ID Status Reason Start Date Expiration Date V isits Requested Visits Authorized [id number] Closed Specialty Services Required 07/18/2012 1 1 Question Answer Reason for Request: Increasing foot edema Comments Please treat and then measure for new garments. Reason for Visit * Reason Comments Botox Injection Encounter Details Date Type Department Care Team (Latest Contact Info) Description 07/18/2012 13:00 EDT Office Visit [facility] Rehabilitation Therapy - [facility] [address] [place], [place] [phone] Devon Melendez MD [address] [place] [phone] 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HCC-CMS) (Primary Dx); Lower extremity edema Discharge Disposition: Auto Discharge Social History Tobacco Use Types Packs/Day Years Used Date Smoking Tobacco: Never Assessed Sex and Gender Information Value Date Recorded Sex Assigned at Not on file Gender Identity Male 06/12/2019 8:16 EDT Sexual Orientation Not on file documented as of this encounter Patient Instructions * Patient Instructions* Devon Melendez MD - 07/18/2012 13:39 EDT Physical Medicine and Rehabilitation Devon Melendez M.D. [address] [place] [address] Discharge Instructions after Botulinum Toxin Injections Diet [...] for any questions you may have at [phone] x 2. The office is open Sunday-Sunday from 8:00 am to 5:00pm. On weekends or evenings, if you have a serious problem, please call your Waste And Batting Waste Chopper, Primary CarePhysician or go to your local Emergency Room. If for any reason a follow-up appointment was not provided or you need to reschedule an appointment, please call our office, the [facility] ([phone] or [phone]) or the [facility] ([phone] or [phone]) if that is where you are seen. 06/12ss documented in this encounter Discharge Disposition Disposition Code Departure Means Destination Auto Discharge documented in this encounter Progress Notes * Devon Melendez MD - 07/18/2012 3184 EDT Botulinum Toxin Injection Procedure Note Pre-Procedure Diagnosis: Spastic tetraplegia Indications: spasticity that adversely impacts independence with transfers. Janes has continued tomaintain the ability to do independent transfers in and out of his wheelchair to bed, which is a major important level of independence for him. The Botox has allowed decreased knee flexor tone so that he is able to more consistently bear weight through his legs for transfer purposes. Janes reviewed with me that he is in need of an electric hospital bed. 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 He is unable to elevate his legs in bed on his own because he does not have a hospital bed and because of his overall disability he would not be able to elevate his feet manually in bed. Therefore, a motorized hospital bed would be appropriate. Examination reveals knee flexor tone modified Kate score of 2 to 3 today. He is able to weightbear with crouched pattern. His lower extremities have 4+ pitting edema in the feet and 2+ in the calves. The edema is still pitting. He had on some Ganesh wraps that were applied by caregivers at his home, but were not really applied appropriately. We proceeded with Botox injections as below. Procedure Details Consent was obtained after discussing possible side effects and complications including risk for systemic absorption, generalized weakness, swallowing dysfunction, and respiratory suppression. The limb(s) for injection were identified and a time out called to re-identify the correct limb forinjection. After prepping the skin with alcohol overlying the following muscles, botlinum toxin wasinjected intramuscularly using EMG guidance as follows. Botox: Hamstring: Units Right 200 Left 200 Total botox units injected: 400 Total botox units wasted: 0 Plan: Return to clinic for reevaluation and repeat botulinum injection in 3 months. Additionally, today we reviewed lower extremity edema management. This was a separate service from Botox injections. We discussed that he would benefit from physical therapy lymphedema assessment here at [facility] to work on manual lymphedema drainage program and then follow up with ordering him some new compression garments. Perhaps he would benefit from a zippered pair of garments that are easier to manage. Also, a prescription was written for a motorized hospital bed so that Janes will beable to reposition himself appropriately in bed independently to elevate his feet and assist with edema management. * Viri Sung RN - 07/18/2012 1338 EDT Botulinum toxin Lot #: [id number] Botulinum toxin expiration date: Jun 2014 Botulinum toxin MAC # [id number] Total Botulinum toxin units injected: 400 Total Botulinum toxin units wasted: 0 documented in this encounter Procedure Notes * BIAS CUTTING MACHINE OPERATOR, FAVIO 2 - 07/26/2012 1149 EDTAssociated Order(s): ORDERS - SCANNED documented in this encounter Miscellaneous Notes * Scanned Note-Null - BIAS CUTTING MACHINE OPERATOR, SCAN 2 - 07/26/2012 1043 EDT * Addendum Note - Devon Melendez MD - 07/18/2012 1410 EDTAddended by: DEVON MELENDEZ on: 07/18/2012 14:10 Modules accepted: Orders documented in this encounter Plan of Treatment Scheduled Referrals Name Type Priority Associated Diagnoses Orde r Schedule AMB CONSULT PT LYMPHEDEMA EVAL AND TREAT Outpatient Referral Routine Lower extremity edema 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[facility]) Ordered: 07/18/2012 AMB MEDICATION PRIOR AUTHORIZATION Outpatient Referral Routine 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[facility]) Lower extremity edema Ordered: 07/18/2012 documented as of this encounter Procedures Procedure Name Priority Date/Time Associated Diagnosis Comments ORDERS - SCANNED 07/26/2012 11:4 9 EDT documented in this encounter Results * ORDERS - SCANNED (07/26/2012 11:49 EDT) 07/26/2012 11:4 9 EDT Narrative 07/26/2012 13:00 EDT Procedure Note BIAS CUTTING MACHINE OPERATOR, SCAN 2 - 07/26/2012 11:49 EDT Scan 2 Computer Numerical Control Grinder ADMISSION ORDERABLE S documented in this encounter Visit Diagnoses Diagnosis 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[facility])- Primary Congenital quadriplegia Lower extremity edema Edema documented in this encounter Discontinued Medications Medication Sig Discontinue Reason Start Date End Da te tolterodine (DETROL LA) 4 mg ER capsule Take 4 mg by mouth daily. Patient Stopped Taking 07/18/2012 DICLOFENAC SODIUM/MISOPROSTOL (ARTHROTEC 50 ORAL) Take by mouth 2 times daily. Patient Stopped Taking 07/18/2012 documented as of this encounter Historical Medications * This list may reflect changes made after this encounter. Medication Sig Dispensed Refills Start Date End Date KINNEY'S YEAST ORAL Take by mouth 2 times daily. 11/20/2012 oxybutynin (DITROPAN XL) 15 mg CR tablet Take by mouth. Takes one tab in am & noon, 2 tabs in pm 11/20/2012 added in this encounter Orders Equipment Count Last Ordered Date First Orde red Date GENERIC DME ORDER 2 07/18/2012 documented in this encounter Care Teams Plastic Parts Fabricator Trimmer Relationship Specialty Start Date End Date Lucy Elizabeth MD [address] [place] [phone] PCP - General 09/28/08 03/08/21 documented as of this encounter
--- OUTSIDE RECORDS SUMMARY | 2023-10-25 14:43 | XMS_ITS | Encounter Summary ---
Author Organization [facility] Address [address] [place] [address] Care Team Providers Care Melter Supervisor Electric Arc Furnace Name Role Phone Lucy Elizabeth MD Primary Care Provider [phone] Reason for Visit * Reason Onset Date Comments Physical Therapy 07/19/2012 Encounter Details Date Type Department Care Team (Late st Contact Info) Description 07/19/2012 Orders Only [facility] Rehabilitation Therapy - [address] [address] Viri Sung RN [address] [place] [address] Social History Tobacco Use Types Packs/Day Years Used Date Smoking Tobacco: Never Assessed Sex and Gender Information Value Date Recorded Sex Assigned at Not on file Gender Identity Male 06/12/2019 8:16 EDT Sexual Orientation Not on file documented as of this encounter Progress Notes * Viri Sung RN - 07/19/2012 1596 EDT Script for lymphedema evaluation and treatment faxed to PT @ [facility] Lisa Mckeon. Janes's parents are aware. * Viri Sung RN - 07/19/[address] Melendez wrote script for patient for lymphedema therapy to be done at [facility]. Janes's parents felt lymphedema frequent treatments at [facility] was too far from home. [facility] is closer to home. Dr Al pino, will write script documented in this encounter Plan of Treatment Not on file documented as of this encounter Visit Diagnoses Not on filedocumented in this encounter Care Teams Melter Supervisor Electric Arc Furnace Relationship Specialty Start Date End Date Lucy Elizabeth MD [address] [place] [phone] PCP - General 09/28/08 03/08/21 documented as of this encounter
--- OUTSIDE RECORDS SUMMARY | 2023-10-25 14:43 | XMS_ITS | Encounter Summary ---
Author Organization [facility] Address [address] [place] [address] Care Team Providers Care Entertainment Musician Name Role Phone Lucy Elizabeth MD Primary Care Provider [phone] Reason for Visit * Reason Comments Follow-up Encounter Details Date Type Department Care Team (Latest Contact Info) Description 07/14/2010 14:00 EDT Office Visit [facility] Rehabilitation Therapy [address] [address] Naga Melendez MD [address] [place] [phone] Quadriplegic infantile cerebral palsy (HCC-CMS) (Primary Dx) Social History Tobacco Use Types Packs/Day Years Used Date Smoking Tobacco: Never Assessed Sex and Gender Information Value Date Recorded Sex Assigned at Not on file Gender Identity Male 06/12/2019 8:16 EDT Sexual Orientation Not on file documented as of this encounter Progress Notes * Naga Melendez MD - 07/26/2010 1006 EDT PHYSICAL MEDICINE / REHABILITATION PROGRESS/FOLLOWUP NOTE - 07/14/2010 REASON FOR FOLLOWUP: History of spastic tetraplegia and knee contractures. SUBJECTIVE: Janes is a 39-year-old gentleman with above mentioned history. He is status post Botoxinjections to the hamstrings performed back in April. He received a total of 400 units. This included hamstrings bilaterally, 350 units total split between the two sides and biceps injections on the right of 50 units. Janes and his parents report that the hamstring injections in particular havebeen helpful in reducing knee flexor tone and allowing him to continue doing more successful squat pivot transfers. He has had less falls and has not had to use his Lifeline as often due to falls. The elbow flexor injection is still a bit equivocal in regard to whether or not it has truly been helpful in improving right arm positioning or use. No interval medical issues. We did review his compression stockings and he has been a little less compliant with that and as such has a little more edema in his feet. OBJECTIVE: On exam, he continues to have flexion tone more on the right than left with modified Kate score of 2 to 3 in the elbow flexors. He continues to have 30 to 40 degree knee contractures [id number]. He was able to do a minimal contact guard assistance transfer from the wheelchair to the examination table and back. IMPRESSION AND PLAN: In summary, Janes continues to benefit from Botox into the hamstrings, equivocal response in the right elbow flexors. We will plan on repeating hamstring injections and I will review with them at the next visit whether or not we should look at repeating the arm as well. He should have an vegetable harvest worker or therapist take a look at his current compression garments to make sure that there are fitting properly as Janes has been complaining of more pain with them. He does have a motorized wheelchair coming soon and this has a leg elevator on it, so he may be able to do some edema management by keeping his legs elevated as well. I will be seeing him back next week for repeat injections. Electronically Signed by Naga Melendez MD 07/26/2010 10:06 Naga Melendez MD - Naga Melendez MD - [place] Job ID: SM Doc ID: [id number] Ext Doc ID: [id number] cc: * Naga Melendez MD - 07/14/2010 1430 EDT This office note has been dictated. documented in this encounter Plan of Treatment Not on file documented as of this encounter Visit Diagnoses Diagnosis 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[facility]-CMS)- Primary Congenital quadriplegia documented in this encounter Historical Medications * This list may reflect changes made after this encounter. Medication Sig Dispensed Refills Start Date End Date METFORMIN HCL (METFORMIN ORAL) Take 500 mg by mouth 2 times daily. 07/14/2010 added in this encounter Care Teams Entertainment Musician Relationship Specialty Start Date End Date Lucy Elizabeth MD [address] [place] [phone] PCP - General 09/28/08 03/08/21 documented as of this encounter
--- OUTSIDE RECORDS SUMMARY | 2023-10-25 14:43 | XMS_ITS | Encounter Summary ---
Author Organization [facility] Address [address] [place] [address] Care Team Providers Care Staff Sonographer Name Role Phone Lucy Elizabeth MD Primary Care Provider [phone] Reason for Referral * Consult (Routine) - Denied Specialty Diagnoses / Procedures [facility] Referred To Contact Physical Medicine and Rehabilitation Diagnoses 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[facility]-CMS) Naga Melendez MD [address] [place] [address] [address] Phone: [phone] Referral ID Status Reason Start Date Expiration Date V isits Requested Visits Authorized [id number] Denied Specialty Services Required 01/31/2011 1 0 Question Answer Medication to be Prior Authorized: For next visit. Comments Botox 400 units Reason for Visit * Reason Comments Botox Injection Encounter Details Date Type Department Care Team (Latest Contact Info) Description 01/30/2011 13:00 EST Office Visit [facility] Rehabilitation Therapy - [address] [phone] Naga Melendez MD [address] [place] [address] Quadriplegic infantile cerebral palsy (Primary Dx) Discharge Disposition: Auto Discharge Social History Tobacco Use Types Packs/Day Years Used Date Smoking Tobacco: Never Assessed Sex and Gender Information Value Date Recorded Sex Assigned at Not on file Gender Identity Male 06/12/2019 8:16 EDT Sexual Orientation Not on file documented as of this encounter Patient Instructions * Patient Instructions* Naga Melendez MD - 01/30/2011 13:31 EST Physical Medicine and Rehabilitation Naga Melendez M.D. [address] [place] [address] Discharge Instructions after Botulinum Toxin Injections Diet [...] for any questions you may have at [phone] x 2. The office is open Sunday-Sunday from 8:00 am to 5:00pm. On weekends or evenings, if you have a serious problem, please call your Golf Club Facer, Primary CarePhysician or go to your local Emergency Room. If for any reason a follow-up appointment was not provided or you need to reschedule an appointment, please call our office, the [facility] Clinic ([phone] or [phone]) or the [facility] ([phone] or [phone]) if that is where you are seen. 06/12ss documented in this encounter Discharge Disposition Disposition Code Departure Means Destination Auto Discharge documented in this encounter Progress Notes * Naga Melendez MD - 01/31/2011 0834 EST Botulinum Toxin Injection Procedure Note Pre-Procedure Diagnosis: Spastic tetraplegia Indications: spasticity that adversely impacts standing and transfers. Janes has benefitted from ongoing Botox to improve knee extension ability and transfers. Exam show flexed knees with tone MAS 3. After reviewing above history and findings we [...] intramuscularly using EMG guidance as follows. BOTOX: Short head biceps femoris: Units Right 50 Left 50 Long head biceps femoris: Units Right 150 Left 150 Plan: As we have a consistent response and clear time frame for repeat injections, we will defer in between follow ups and return to clinic for repeat botulinum injection in 3 months. An After Visit Summary was printed and given to the patient. * José Luis Rm RN - 01/30/2011 1336 EST Botulinum toxin Lot #: [id number] Botulinum toxin expiration date: June 2013 Total Botulinum toxin units injected: 400 Total Botulinum toxin units wasted: 0 documented in this encounter Plan of Treatment Scheduled Referrals Name Type Priority Associated Diagnoses Order Schedule AMB MEDICATION PRIOR AUTHORIZATION Outpatient Referral Routine Quadriplegic infantile cerebral palsy Ordered: 01/31/2011 documented as of this encounter Visit Diagnoses Diagnosis Quadriplegic infantile cerebral palsy- Primary Congenital quadriplegia documented in this encounter Discontinued Medications Medication Sig Discontinue Reason Start Date End Da te simvastatin (ZOCOR) 80 mg tablet Take 80 mg by mouth at bedtime. Dose adjustment 01/30/2011 tolterodine (DETROL LA) 4 mg ER capsule Take 2 mg by mouth daily. Discontinued by another clinician 01/30/2011 DICLOFENAC SODIUM/MISOPROSTOL (ARTHROTEC 50 ORAL) Take 50 mg by mouth 2 times daily. Discontinued by another clinician 01/30/2011 documented as of this encounter Historical Medications * This list may reflect changes made after this encounter. Medication Sig Dispensed Refills Start Date End Date simvastatin (ZOCOR) 40 mg tablet Take 1 Tablet by mouth every evening. OXYBUTYNIN CHLORIDE (DITROPAN ORAL) Take 15 mg by mouth 3 times daily. Takes 1 tablet every am & noon, and 2 tablets in PM 08/31/2011 added in this encounter Care Teams Staff Sonographer Relationship Specialty Start Date End Date Lucy Elizabeth MD [address] [place] [phone] PCP - General 09/28/08 03/08/21 documented as of this encounter
--- OUTSIDE RECORDS SUMMARY | 2023-10-25 14:43 | XMS_ITS | Encounter Summary ---
Author Organization [facility] Address [address] [place] [address] Care Team Providers Care Bandmill Operator Name Role Phone Lucy Elizabeth MD Primary Care Provider [phone] Reason for Referral * Consult (Routine) - Closed Specialty Diagnoses / Procedures Referred By Contac t Referred To Contact Physical Medicine and Rehabilitation / Physical Medicine and Rehab Diagnoses 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HCC-CMS) Low back pain Fusion of spine Naga Melendez MD [address] [facility] [address] [place] [address] [facility] Re[facility] Medicine [address] [place] [address] Referral ID Status Reason Start Date Expiration Date V isits Requested Visits Authorized [id number] Closed Specialty Services Required 12/22/2010 04/03/2012 1 1 Question Answer Medication to be Prior Authorized: Botox for next visit Comments Botox 400 units * Consult (Routine) - Closed Specialty Diagnoses / Procedures Referred By Conteusebia t Referred To Contact Diagnoses 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HCC-CMS) Low back pain Naga Melendez MD [address] [place] [address] [place], [place] [address] Referral ID Status Reason Start Date Expiration Date V isits Requested Visits Authorized [id number] Closed Specialty Services Required 12/22/2010 1 1 Question Answer Physical therapy is needed for: Evaluation Comments Low back pain flare, SI joint and paraspinals on right side. Home Health [id number] Encounter: I certify that this patient is under my care and that I, or a Medicare authorized non-physician provider ([employer] or [place]) working with me, had a [id number] encounter with this patient on 12/22/2010 that was in whole or in part related to the reason the patient needs home health care. The findings of this encounter indicate that the patient requires prison or therapist services for the reasons listed below. Skilled therapist services: - are required because of the complexity of the therapy needed to treat the injury, illness or condition Additionally, the findings of this encounter support that the patient is homebound because: - the patient requires the assistance of a person or device to safely leave home - leaving home requires considerable and taxing effort due to a medical condition Reason for Visit * Reason Comments Follow-up post botox injection s Hip Pain right Encounter Details Date Type Department Care Team (Latest Contact Info) Description 12/22/2010 14:00 EDT Office Visit [facility] Rehabilitation Therapy - [address] [address] Naga Melendez MD [address] [place] [address] 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HCC-CMS); Low back pain; Fusion of spine Social History Tobacco Use Types Packs/Day Years Used Date Smoking Tobacco: Never Assessed Sex and Gender Information Value Date Recorded Sex Assigned at Not on file Gender Identity Male 06/12/2019 8:16 EDT Sexual Orientation Not on file documented as of this encounter Progress Notes * Naga Melendez MD - 12/22/2010 2677 EDT REASON FOR FOLLOWUP: History of spastic quadriplegic CP, here for reevaluation of response to Botoxinjections into the lower extremities as well as recent flare of low back pain on the right. Janes is a 40-year-old gentleman who was seen by me almost 3 months ago now where he received Botox into his hamstrings with ongoing goals for improving knee extension strength so that he can weightbear for transfers. He has been responding well to the Botox and continues to be able to do weightbearing crouched transfers. Over the last couple of weeks, however, he has developed significant right-sided low back pain that does radiate down into the leg. This happens mostly with weightbearing, not so much with sitting or lying down, but when he is doing transfers. He does have a remote history of spinal fusion about [address] Elizabeth put him on some baclofen and they are looking to switch him from Arthrotec over to Celebrex. On exam, Janes was generally appearing well. He is able to do a crouched weightbearing transfer over to the examination table. Examination reveals tenderness of the right lower lumbar paraspinal andSI joint area. CHICHI maneuver and pelvic pressure did not increase any pain. He continues to have stable knee flexion contractures and is still able to bear weight through his legs for transfers. In summary, Janes is a 40-year-old gentleman with spastic quadriplegia, responding well to Botox injections, but having a flare of back pain. I agree with Dr Elizabeth's plan for putting him on baclofenfor a period of time and getting him on anti-inflammatories. I also ordered him some home health PTto work on some myofascial release and stretching. Lastly, I have ordered an x-ray of his lumbar spine to assess stability of his previous fusion instrumentation. I will see him back in about a monthwhere we will follow up on his back pain also look at repeating Botox injections into the hamstrings bilaterally. CC: Lucy Elizabeth MD. documented in this encounter Plan of Treatment Scheduled Referrals Name Type Priority Associated Diagnoses Order Schedule AMB CONSULT HOME HEALTH SERVICES Outpatient Referral Routine Quadriplegic infantile cerebral palsy (HCC-CMS) Low back pain Ordered: 12/22/2010 AMB MEDICATION PRIOR AUTHORIZATION Outpatient Referral Routine Quadriplegic infantile cerebral palsy (HCC-CMS) Low back pain Fusion Of Spine Ordered: 12/22/2010 documented as of this encounter Procedures Procedure Name Priority Date/Time Associated Diagnosis Comments L SPINE 2-3 VIEWS Routine 12/22/2010 15: 16 EDT Low back pain 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HCC-CMS) Fusion of spine documented in this encounter Results * L SPINE 2-3 VIEWS (12/22/2010 15:16 EDT) Anatomical Region Laterality Modality Other 12/22/2010 15:1 6 EDT 12/22/2010 16:41 EDT Narrative 12/22/2010 16:41 EDT History/Comments: ??724.0-BQKBXRG-SLL-9-CM 343.2-CONGENITAL CIRDHRSSNJMC-TLA-0-CM ??2 weeks of new right low back pain. ??History of spinal fusion. L SPINE 2-3 VIEWS ?? Findings: ??There is posterior spinal fusion, involving the entire lumbar spine and the lower thoracic spine. However, the superior extent of the posterior fusion is not included on the lumbar spine films. There is no evidence of instrumentation failure. The vertebral body bodies demonstrate normal height and there is no evidence of a compression deformity. The visualized portions of the pelvis demonstrate a dysplastic appearing pelvis. The right hip demonstrates mild joint space narrowing. Procedure Note 12/22/2010 History/Comments: 724.9-QKUFOYR-TKY-9-CM 343.2-CONGENITAL FMOGMDZAXEXS-XBH-7-CM 2 weeks of new right low back pain. History of spinal fusion. L SPINE 2-3 VIEWS Findings: There is posterior spinal fusion, involving the entire lumbar spine and the lower thoracic spine. However, the superior extent of the posterior fusion is not included on the lumbar spine films. There is no evidence of instrumentation failure. The vertebral body bodies demonstrate normal height and there is no evidence of a compression deformity. The visualized portions of the pelvis demonstrate a dysplastic appearing pelvis. The right hip demonstrates mild joint space narrowing. Naga Melendez MD IMG DIAGNOSTIC IM AGING ORDERABLES documented in this encounter Visit Diagnoses Diagnosis 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HCC-CMS) Congenital quadriplegia Low back pain Lumbago Fusion of spine Other unspecified back disorder documented in this encounter Historical Medications * This list may reflect changes made after this encounter. Medication Sig Dispensed Refills Start Date End Date baclofen (LIORESAL) 10 mg tablet Take 10 mg by mouth 2 times daily as needed. 11/20/2012 CELECOXIB (CELEBREX ORAL) Take 200 mg by mouth daily. 08/31/2011 added in this encounter Care Teams Bandmill Operator Relationship Specialty Start Date End Date Lucy Elizabeth MD [address] [place] [phone] PCP - General 09/28/08 03/08/21 documented as of this encounter
--- OUTSIDE RECORDS SUMMARY | 2023-10-25 14:43 | XMS_ITS | Encounter Summary ---
Author Organization [facility] Address [address] [place] [address] Care Team Providers Care Barrel Racer Name Role Phone Unavailable Primary Care Provider Unavailabl e Encounter Details Date Type Department Care Team (Latest Contact Info) Description 01/17/2008 15:25 EST Hospital Encounter [facility] [address] [place] [address] Naga Melendez MD [address] [place] [address] Discharge Disposition: Auto Discharge Social History Tobacco [...]
--- OUTSIDE RECORDS SUMMARY | 2023-10-25 14:43 | XMS_ITS | Encounter Summary ---
Author Organization [facility] Address [address] [place] [address] Care Team Providers Care Plasma Center Nurse Name Role Phone Lucy Elizabeth MD Primary Care Provider [phone] Reason for Visit * Reason Comments Botox Injection * Consult (Routine/Next Available) - Closed Specialty Diagnoses / Procedures Referred By Rubina perkins Referred To Contact Physical Medicine and Rehabilitation / Physical Medicine and Rehab Diagnoses 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HCC-CMS) Naga Melendez MD [address] [place] [address] Naga Melendez MD [address] [place] [address] Referral ID Status Reason Start Date Expiration Date V isits Requested Visits Authorized [id number] Closed Specialty Services Required 11/20/2012 11/19/2013 4 4 Encounter Details Date Type Department Care Team (Latest Contact Info) Description 03/20/2013 13:00 EST Office Visit [facility] Rehabilitation Therapy - [address] [phone] Naga Melendez MD [address] [place] [phone] 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HCC-CMS) (Primary Dx) Discharge Disposition: [...] - Inhaled Oxygen Concentration - - Weight 69.3 kg (152 lb 12.8 oz) 03/20/2013 1242 EST Height - - Body Mass Index - - documented in this encounter Discharge Diagnoses Diagnosis 343.2 CONGENITAL QUADRIPLEGIA[ICD-9-CM] documented in this encounter Patient Instructions * Patient Instructions* Naga Melendez MD - 03/20/2013 13:07 EST Physical Medicine and Rehabilitation Naga Melendez M.D. [address] [place] [address] Discharge Instructions after Botulinum Toxin Injections Diet [...] for any questions you may have at [phone] x 2. The office is open Sunday-Sunday from 8:00 am to 5:00pm. On weekends or evenings, if you have a serious problem, please call your Maintenance Aide, Primary CarePhysician or go to your local Emergency Room. If for any reason a follow-up appointment was not provided or you need to reschedule an appointment, please call our office, the [facility]. Clinic ([phone] or [phone]) or the [facility] ([phone] or [phone]) if that is where you are seen. 06/12ss documented in this encounter Discharge Disposition Disposition Code Departure Means Destination Auto Discharge documented in this encounter Progress Notes * Naga Melendez MD - 03/20/2013 5889 EST Botulinum Toxin Injection Procedure Note Pre-Procedure Diagnosis: Spastic tetraplegia CP Indications: spasticity that adversely impacts function of transfers. He's consistently done well with injections to maintain ability to bare weight through legs for independent toilet transfers. Tone today is MAS 3 in Hamstrings. Procedure Details Consent was obtained after discussing [...] 200 Total botox units wasted: 0 Plan: Repeat in 3 months. An After Visit Summary was printed and given to the patient. Follow up visit 06/13/2013 * José Luis Rm RN - 03/20/2013 3295 EST Botulinum toxin Lot #: [id number] Botulinum toxin expiration date: Botulinum toxin [facility] # 7438-3036-49 Total Botulinum toxin units injected: 400 Total Botulinum toxin units wasted: 0 documented in this encounter Plan of Treatment Not on file documented as of this encounter Visit Diagnoses Diagnosis 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HCC-CMS)- Primary Congenital quadriplegia documented in this encounter Care Teams Plasma Center Nurse Relationship Specialty Start Date End Date Lucy Elizabeth MD [address] [place] [phone] PCP - General 09/28/08 03/08/21 documented as of this encounter
--- OUTSIDE RECORDS SUMMARY | 2023-10-25 14:43 | XMS_ITS | Encounter Summary ---
Author Organization [facility] Address [address] [place] [address] Care Team Providers Care Pbx Installer Name Role Phone Lucy Elizabeth MD Primary Care Provider [phone] Reason for Referral * Consult (Routine) - Closed Specialty Diagnoses / Procedures Referred By [facility] Referred To Contact Physical Medicine and Rehabilitation Diagnoses 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HCC-CMS) Naga Melendez MD [address] [place] [address] [address] [address] [address] Phone: [phone] Referral ID Status Reason Start Date Expiration Date V isits Requested Visits Authorized [id number] Closed Specialty Services Required 10/14/2009 01/14/2010 1 1 Question Answer Medication to be Prior Authorized: Botox for October visit. Comments Botox 400 units Encounter Details Date Type Department Care Team (Late st Contact Info) Description 10/01/2009 Orders Only [facility] Rehabilitation Therapy - [address] [address] Naga Melendez MD [address] [place] [address] [phone] Quadriplegic infantile cerebral palsy (HCC-CMS) (Primary Dx) [...] Referral Routine Quadriplegic infantile cerebral palsy (HCC-CMS) Ordered: 10/01/2009 documented as of this encounter Visit Diagnoses Diagnosis 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[facility]-CMS)- Primary Congenital quadriplegia documented in this encounter Care Teams Pbx Installer Relationship Specialty Start Date End Date Lucy Elizabeth MD [address] [place] [phone] PCP - General 09/28/08 03/08/21 documented as of this encounter
--- OUTSIDE RECORDS SUMMARY | 2023-10-25 14:43 | XMS_ITS | Encounter Summary ---
Author Organization [facility] Address [address] [place] [address] Care Team Providers Care Liquor Bridge Operator Name Role Phone Lucy Elizabeth MD Primary Care Provider [phone] Reason for Referral * Consult (Routine/Next Available) - Closed Specialty Diagnoses / Procedures Referred By Conteusebia t Referred To Contact Physical Medicine and Rehabilitation / Physical Medicine and Rehab Diagnoses 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[facility]) Naga Melendez MD [address] [facility] [address] [place] [address] Naga Melendez MD [address] [place] [address] [place] [address] Referral ID Status Reason Start Date Expiration Date V isits Requested Visits Authorized [id number] Closed Specialty Services Required 06/11/2013 1 1 Question Answer Medication to be Prior Authorized: Botox for next visit. Comments Botox 400 units Encounter Details Date Type Department Care Team (Late st Contact Info) Description 06/11/2013 Orders Only [facility] Rehabilitation Therapy - [address] [phone] Naga Melendez MD [address] [place] [address] [place] [phone] 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[facility]) (Primary Dx) Social History Tobacco Use [...] PRIOR AUTHORIZATION Outpatient Referral Routine 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[facility]) Ordered: 06/11/2013 documented as of this encounter Visit Diagnoses Diagnosis 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[facility])- Primary Congenital quadriplegia documented in this encounter Care Teams Liquor Bridge Operator Relationship Specialty Start Date End Date Lucy Elizabeth MD [address] [place] [phone] PCP - General 09/28/08 03/08/21 documented as of this encounter
--- OUTSIDE RECORDS SUMMARY | 2023-10-25 14:43 | XMS_ITS | Encounter Summary ---
Author Organization [facility] Address [address] [place] [address] Care Team Providers Care Social Work Coordinator Name Role Phone Lucy Elizabeth MD Primary Care Provider [phone] Reason for Visit * Reason Onset Date Comments Other 12/30/2010 Encounter Details Date Type Department Care Team (Late st Contact Info) Description 12/30/2010 Telephone [facility] Rehabilitation Therapy - [address] [address] Markus Rm, RN Other Social History Tobacco Use Types Packs/Day Years Used Date Smoking Tobacco: Never Assessed Sex and Gender Information Value Date Recorded Sex Assigned at Not on file Gender Identity Male 06/12/2019 8:16 EDT Sexual Orientation Not on file documented as of this encounter Miscellaneous Notes * Telephone Encounter - José Luis Rm RN - 12/30/2010 5401 EDT Janes Ramírez's mother, called to request that referral from 12/22/10 appointment be faxed to [facility]. I let Desiree know that the referral was faxed on 12/22/10 but I would call to confirm that [facility] had received referral and re-fax if they had not received. TC to [facility], spoke with Heavenly who confirmed that they had received referral for Janes on 12/22/10 and that she had just spoken with Desiree and confirmed same. documented in this encounter Plan of Treatment Not on file documented as of this encounter Visit Diagnoses Not on filedocumented in this encounter Care Teams Social Work Coordinator Relationship Specialty Start Date End Date Lucy Elizabeth MD [address] [place] [phone] PCP - General 09/28/08 03/08/21 documented as of this encounter
--- OUTSIDE RECORDS SUMMARY | 2023-10-25 14:43 | XMS_ITS | Encounter Summary ---
Author Organization [facility] Address [address] [place] [address] Care Team Providers Care Toe Puncher Name Role Phone Lucy Elizabeth MD Primary Care Provider [phone] Reason for Visit * Reason Comments Botox Injection Encounter Details Date Type Department Care Team (Latest Contact Info) Description 01/08/2012 13:30 EST Office Visit [facility] Rehabilitation Therapy [address] [address] Naga Melendez MD [address] [place] [address] 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[facility]) (Primary Dx) Discharge Disposition: Auto Discharge Social [...] Progress Notes * Naga Melendez MD - 01/08/2012 6202 EST Botulinum Toxin Injection Procedure Note Pre-Procedure Diagnosis: Spastic tetraplegia Indications: spasticity that adversely impacts transfers. Norberto has continued to benefit from injections of Botox into his hamstrings to reduce knee flexor tone and allow him to continue to do some weightbearing for transfers and reduce risk of progressive knee contracture. He is a little over 4 months out since the last injections and he has not noticed any deterioration. He is here for repeat inje ctions today. Exam shows knee flexor tone modified Kate score of 2. Contractures of around 40 degrees, but heis able to bear weight through his legs with mini assist. Procedure Details Consent was obtained after discussing [...] printed and given to the patient. * Susan Quintero - 01/08/2012 1341 EST Botulinum toxin Lot #: [id number] Botulinum toxin expiration date: MAY 2014 Botulinum toxin [facility] # [id number] Total Botulinum toxin units injected: 400 Total Botulinum toxin units wasted: 0 documented in this encounter Plan of Treatment Not on file documented as of this encounter Visit Diagnoses Diagnosis 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[facility])- Primary Congenital quadriplegia documented in this encounter Care Teams Toe Puncher Relationship Specialty Start Date End Date Lucy Elizabeth MD [address] [place] [phone] PCP - General 09/28/08 03/08/21 documented as of this encounter
--- OUTSIDE RECORDS SUMMARY | 2023-10-25 14:43 | XMS_ITS | Encounter Summary ---
Author Organization [facility] Address [address] [place] [address] Care Team Providers Care Compliance Counsel Name Role Phone Lucy Elizabeth MD Primary Care Provider [phone] Reason for Visit * Reason Comments Botox Injection Encounter Details Date Type Department Care Team (Latest Contact Info) Description 01/21/2010 14:00 EST Office Visit [facility] Rehabilitation Therapy - [id number] [place], [place] [phone] Naga Melendez MD [address] [place] [address] Quadriplegic infantile cerebral palsy (HCC-CMS) (Primary Dx) Social History Tobacco Use Types Packs/Day Years Used Date Smoking Tobacco: Never Assessed Sex and Gender Information Value Date Recorded Sex Assigned at Not on file Gender Identity Male 06/12/2019 8:16 EDT Sexual Orientation Not on file documented as of this encounter Patient Instructions * Patient Instructions* Naga Melendez MD - 01/21/2010 14:46 EST Physical Medicine and Rehabilitation Naga Melendez M.D. [address] [place] [address] Discharge Instructions after Botulinum Toxin Injections Diet [...] for any questions you may have at [phone] x 2. The office is open Sunday-Sunday from 8:00 am to 5:00pm. On weekends or evenings, if you have a serious problem, please call your Postdoctoral Fellow, Primary CarePhysician or go to your local Emergency Room. If for any reason a follow-up appointment was not provided or you need to reschedule an appointment, please call our office, the [facility] ([phone] or [phone]) or the [facility] ([phone] or [phone]) if that is where you are seen. 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 Indications: spasticity that adversely impacts function of right arm bor bimanual tasks, and weightbaring for transfers. Exam shows right arm flexion synery, MAS of 2-3. Knee flexion tone MAS 2 and contractures not quantified today. After reviewing above history and findings we [...] as follows. BOTOX: Biceps: Units Right 50 Brachioradialis: Units Right 50 Flexor carpi radialis: Units Right 70 Flexor pollicus brevis: Units Right 30 Long head biceps femoris: Units Right 100 Left 100 Total botox units injected: 400 Total botox units wasted: 0 Plan: Return to clinic for assessment of botulinum toxin effectiveness in 6 weeks. documented in this encounter Plan of Treatment Not on file documented as of this encounter Visit Diagnoses Diagnosis 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[facility])- Primary Congenital quadriplegia documented in this encounter Discontinued Medications Medication Sig Discontinue Reason Start Date End Da te metformin (GLUCOPHAGE) 500 mg tablet Take 500 mg by mouth daily. Patient Stopped Taking 12/03/2009 01/21/2010 documented as of this encounter Care Teams Compliance Counsel Relationship Specialty Start Date End Date Lucy Elizabeth MD [address] [place] [phone] PCP - General 09/28/08 03/08/21 documented as of this encounter
--- OUTSIDE RECORDS SUMMARY | 2023-10-25 14:43 | XMS_ITS | Encounter Summary ---
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[facility]) Naga Melendez MD [address] [place] [address] [place] [address] Naga Melendez MD [address] [address] Referral ID Status Reason Start Date Expiration Date V isits Requested Visits Authorized [id number] Closed Specialty Services Required 11/20/2012 11/19/2013 4 4 Encounter Details Date Type Department Care Team (Latest Contact Info) Description 11/20/2012 13:00 EDT Office Visit [facility] Rehabilitation Therapy - [address] [place], [place] [address] Naga Melendez MD [address] [place] [phone] 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HCC-CMS) (Primary Dx) Discharge Disposition: Auto Discharge Social History Tobacco Use Types Packs/Day Years Used Date Smoking Tobacco: Never Assessed Sex and Gender Information Value Date Recorded Sex Assigned at Not on file Gender Identity Male 06/12/2019 8:16 EDT Sexual Orientation Not on file documented as of this encounter Patient Instructions * Patient Instructions* Naga Melendez MD - 11/20/2012 13:32 EDT Physical Medicine and Rehabilitation Naga Melendez M.D. [address] [place] [address] Discharge Instructions after Botulinum Toxin Injections Diet [...] for any questions you may have at [phone] x 2. The office is open Sunday-Sunday from 8:00 am to 5:00pm. On weekends or evenings, if you have a serious problem, please call your Judicial Assistant, Primary CarePhysician or go to your local Emergency Room. If for any reason a follow-up appointment was not provided or you need to reschedule an appointment, please call our office, the [facility] ([phone] or [phone]) or the [facility] ([phone] or [phone]) if that is where you are seen. 06/12ss documented in this encounter Discharge Disposition Disposition Code Departure Means Destination Auto Discharge documented in this encounter Progress Notes * Viri Sung RN - 11/20/2012 1342 EDT Botulinum toxin Lot #: [id number] Botulinum toxin expiration date: Nov 2014 Total Botulinum toxin units injected: 400 Total Botulinum toxin units wasted: 0 * Naga Melendez MD - 11/20/2012 1339 EDT Botulinum Toxin Injection Procedure Note Pre-Procedure Diagnosis: Spastic tetraplegia Indications: spasticity that adversely impacts function of trasfers. Intermittent injections to the hamstrings have consistently improved Janes's ability to do more independent stand pivot transfers. His parents note that with the ongoing use of Botox there have beenfar less falls and need for use of his life alert. This has led to increased sense of independence and well-being on his part. He thinks that waiting the 4-month interval has been okay and we are proceeding with repeat injections today. Examination reveals that he is able to do some limited weightbearing for short periods of time. He is still quite crouched at about 45 degrees of flexion at the knees. He has a tone modified Kate score of 2 in the hamstrings today. Procedure Details Consent was obtained after [...] to clinic for repeat botulinum injection in 4 months. An After Visit Summary was printed and given to the patient. 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 Patient Stopped Taking 11/20/2012 Rhonda's Wort 300 mg Cap Take 300 mg by mouth 3 times daily. Patient Stopped Taking 11/20/2012 oxybutynin (DITROPAN XL) 15 mg CR tablet Take by mouth. Takes one tab in am & noon, 2 tabs in pm Patient Stopped Taking 11/20/2012 baclofen (LIORESAL) 10 mg tablet Take 10 mg by mouth 2 times daily as needed. Patient Stopped Taking 11/20/2012 documented as of this encounter Historical Medications * This list may reflect changes made after this encounter. Medication Sig Dispensed Refills Start Date End Date oxybutynin (DITROPAN XL) 15 mg CR tablet Take 1 Tablet by mouth daily. added in this encounter Care Teams Embossed Or Impressed Lettering Painter Relationship Specialty Start Date End Date Lucy Elizabeth MD [address] [place] [phone] PCP - General 09/28/08 03/08/21 documented as of this encounter
--- OUTSIDE RECORDS SUMMARY | 2023-10-25 14:43 | XMS_ITS | Encounter Summary ---
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 Reason for Visit * Reason Comments Follow-up Encounter Details Date Type Department Care Team (Latest Contact Info) Description 12/03/2009 13:00 EDT Office Visit [facility] Rehabilitation Therapy [address] [place] [address] Naga Melendez MD [address] [place] [phone] Quadriplegic infantile cerebral palsy (HCC-CMS) (Primary Dx) Social History Tobacco Use Types Packs/Day Years Used Date Smoking Tobacco: Never Assessed Sex and Gender Information Value Date Recorded Sex Assigned at Not on file Gender Identity Male 06/12/2019 8:16 EDT Sexual Orientation Not on file documented as of this encounter Progress Notes * Naga Melendez MD - 12/13/2009 3138 EDT PHYSICAL MEDICINE / REHABILITATION PROGRESS/FOLLOWUP NOTE - 12/03/2009 REASON FOR FOLLOWUP: History of spastic quadriplegic cerebral palsy. SUBJECTIVE: Janes is a 39-year-old gentleman with above mentioned history. He was last seen by me about 6 weeks ago where he received Botox injections into the bilateral hamstrings and the right biceps and wrist flexors. He reports that he has had interval improvement in his ability to use the right hand as a helper for holding items while he manipulates them with his left hand. He reports continued benefits in regard to hamstring injections with improving ability to do stand or squat pivot transfers. He has been having some wheelchair issues and has had to use some backup wheelchairs, which have increased back and shoulder pain. He is going to have an appointment with [facility] in [place], and they would like a physical therapy script to go with them for the visit for wheelchair seating. We will fax that to [facility]. MEDICATIONS: Were reviewed. OBJECTIVE: On exam, Janes was appearing well. In regard to right upper extremity tone, he has modified Kate score of 2 in the elbow flexors and wrist flexors. I am able to get him to about neutral wrist extension with the fingers fully extended. Lower extremity exam reveals knee flexion anglesat around 30 degrees while seated in his wheelchair when I try and fully extend his legs. I did nothave him do any squat pivot transfers today. IMPRESSION AND PLAN: In summary, Janes is a 39-year-old gentleman with spastic quadriplegia. He continues to anecdotally benefit from Botox in regard to improved weightbearing and squat or stand pivot transfer ability, and he reports improved use of the right hand for bimanual tasks. He is in need of new seating as this current wheelchair is about 7 years old. We discussed that he would benefit from a high low mechanism which has greatly improved his independence within his home,[id number] for pressure relief and leg elevators for lower extremity edema. I wrote a script forphysical therapist to join Marcos Arzate at [facility] for the seating evaluation and I will review and sign off on the wheelchair prescription once it is completed. We will also schedule an appointment for him to come back in 6 weeks for reevaluation and potential repeat injections at that time. Electronically Signed by Naga Melendez MD 12/13/2009 13:18 Naga Melendez MD - Naga Melendez MD - [facility] Job ID: SM Doc ID: [id number] Ext Doc ID: [id number] cc: * Naga Melendez MD - 12/03/2009 1335 EDT This office note has been dictated. 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 Medication Sig Dispensed Refills Start Date End Date metformin (GLUCOPHAGE) 500 mg tablet Take 500 mg by mouth daily. 12/03/2009 01/21/2010 added in this encounter Care Teams Medical Diagnostic Radiographer Relationship Specialty Start Date End Date Lucy Elizabeth MD [address] [place] [phone] PCP - General 09/28/08 03/08/21 documented as of this encounter
--- OUTSIDE RECORDS SUMMARY | 2023-10-25 14:43 | XMS_ITS | Encounter Summary ---
Author Organization [facility] Address [address] [place] [address] Care Team Providers Care Internal Revenue Service Agent Name Role Phone Unavailable Primary Care Provider Unavailabl e Encounter Details Date Type Department Care Team (Late st Contact Info) Description 04/03/2008 Before PRISM Converted Visit (Maple) [facility] - Maple conversion [address] [place] [address] Naga Melendez MD [address] [place] [phone] Social History Tobacco Use Types Packs/Day Years Used Date Smoking Tobacco: Never Assessed Sex and Gender Information Value Date Recorded Sex Assigned at Not on file Gender Identity Male 06/12/2019 8:16 EDT Sexual Orientation Not on file documented as of this encounter Progress Notes * Naga Melendez MD - 09/26/2008 7770 EDT PHYSICAL MEDICINE / REHABILITATION PROGRESS/FOLLOWUP NOTE - 04/03/2008 DATE OF SERVICE: 04/03/2008 ATTENDING PHYSICIAN: Naga Melendez MD REFERRING PHYSICIAN: FERNANDO Quinonez PRIMARY PHYSICIAN: Lucy Elizabeth MD REASON FOR EVALUATION/FOLLOWUP TODAY History of spastic quadriplegic CP status post Botox injections to bilateral hamstrings. HISTORY OF PRESENT ILLNESS Janes is a 37-year-old with history of spastic quadriplegia. I first met him related to shoulder complaints after an injury during exercise. His shoulder pain complaints had essentially resolved by time I first met with Janes back in January. However, at that visit we had identified that he had significant knee pain and hamstring spasticitythat affected transfers and the ability to weight bear. We therefore decided on Botox injections to the hamstrings which were performed on January 17, 2008. Janes was here today his parents. They report that there has been noticeable improvement in hisability to weight bear through his legs for squat and stand-transfers. Physical therapists working with him have also noted improvement in range of motion and decreasein stiffness. Janes reports that there has been improvement in knee pain. However, at this point it is unclear as to whether or notthat is directly related to Botox or related to initiation of Arthrotec which was started around the time his shoulder pain began. He does continue to take the Arthrotec which is assisted also with de creasing left hip pain. Medications were reviewed and updated in our record today. PHYSICAL EXAMINATION Janes was pleasant and cooperative. While sitting in the wheelchair no active spasms are noted. While transferring to the examination table, he has a very crouched standing position. His father still had to require significant assistance for pivot transfer. However, he reports having to put far less effort into maintaining Andrew weightbearing. On the exam table, Andrew knee contractures remain stable at 35 Popliteal angles however have improved by about 5 to 10 degrees with the left side still being slightly tighter than the right. I measure him at around 55 degrees to 60 degrees on the left and 50 to 55 degrees on the right. SUMMARY Janes has had a good first response to Botox injections into the hamstrings in regard to noticeable improvement in weight bear and transfers, as well as slight improvement in knee range of motion, though his contracture range remains the same. We discussed timing of and desire for repeat injections at the three-month romario. Janes and his family all feel that these injections were beneficial enoug h in regard to decreasing burden of care, improving standing ability, and improving potentially discomfort as well, so that they wish to repeat them. An appointment has been scheduled for mid may to do that. We also discussed it is appropriate to continue taking the Arthrotec, as long as he is tolerating it to maintain anti-inflammatory management of his hip pain, as well as knee pain and otherdegenerative joint disease. Signed by Naga Melendez MD 04/10/2008 17:03 Naga Melendez MD - Naga Melendez MD - [facility] Job ID: [id number] Doc ID: [id number] cc: MD Millicent Cooper PA documented in this encounter Plan of Treatment Not on file documented as of this encounter Visit Diagnoses Not on filedocumented in this encounter
--- OUTSIDE RECORDS SUMMARY | 2023-10-25 14:43 | XMS_ITS | Encounter Summary ---
Author Organization [facility] Address [address] [place] [address] Care Team Providers Care Slot Service Specialist Name Role Phone Unavailable Primary Care Provider Unavailabl e Encounter Details Date Type Department Care Team (Latest Contact Info) Description 05/27/2008 15:23 EDT - 06/02/2008 11:59 EDT Hospital Encounter [facility] - Other [address] [place] [phone] Lucy Elizabeth MD [address] [place] [phone] Discharge Disposition: Auto Discharge Social History Tobacco [...]
--- OUTSIDE RECORDS SUMMARY | 2023-10-25 14:43 | XMS_ITS | Encounter Summary ---
Author Organization [facility] Address [address] [place] [address] Care Team Providers Care Milk Pickup Truck Driver Name Role Phone Lucy Elizabeth MD Primary Care Provider [phone] Reason for Referral * Consult (Routine) - Closed Specialty Diagnoses / Procedures Referred By Rubina perkins Referred To Contact Physical Medicine and Rehabilitation Diagnoses 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HCC-CMS) Devon Melendez MD [address] [place] [address] [phone] [address] [address] Phone: [phone] Referral ID Status Reason Start Date Expiration Date V isits Requested Visits Authorized [id number] Closed Specialty Services Required 09/29/2010 1 1 Question Answer Medication to be Prior Authorized: For next visit. Comments Botox 400 units Reason for Visit * Reason Comments Follow-up Encounter Details Date Type Department Care Team (Latest Contact Info) Description 09/28/2010 15:30 EDT Office Visit [facility] Rehabilitation Therapy - [facility] [address] [place] [address] [phone] Devon Melendez MD [address] [place] [phone] Quadriplegic infantile cerebral palsy (HCC-CMS) (Primary Dx) Social History Tobacco Use Types Packs/Day Years Used Date Smoking Tobacco: Never Assessed Sex and Gender Information Value Date Recorded Sex Assigned at Not on file Gender Identity Male 06/12/2019 8:16 EDT Sexual Orientation Not on file documented as of this encounter Progress Notes * Devon Melendez MD - 09/29/2010 0900 EDTAddended by: DEVON MELENDEZ on: 09/29/2010 Modules accepted: Orders * Devon Melendez MD - 09/29/2010 0859 EDT REASON FOR FOLLOWUP: History of spastic quadriplegic CP. Here for reevaluation after most recent Botox injections performed back on the . Norberto is a 40-year-old gentleman with above mentioned history of spastic quadriplegia. He received Botox injections to his hamstrings on 07/21. He has continued to benefit from Botox in regard to decreasing knee flexor tone and improving his ability to weightbear through his legs for transfers. Norberto was accompanied by his father today. They both feel that the initiation of Botox, a couple of years ago, has been instrumental in improving Norberto's ability to stand and do weightbearing transfers and continue to maintain this ability. When the Botox starts wearing off, they do notice increased difficulty with that. Norberto went on a trip with his parents this summer where they went camping. They report that Norberto did great with transfers throughout the whole trip. Medications were reviewed and updated in PRISM. On examination, Norberto was cheerful and cooperative. He has elbow flexor tone on the right, modified Kate score of 1+ with end range at about -40 degrees from full extension. This has not changed with previous Botox to the elbow flexors and Norberto feels that the Botox that we had done, two visits agoto the elbow flexors, did not seem to change much. We did not do Botox to the elbow flexors last visit and he has not noticed any deterioration. Norbertowas able to weightbear through his legs, though he is flexed at about 40 degrees at the knees while standing. He was able to bear weight through his legs with support for balance, but did not require being held up. I did not repeat range of motion measurements today which have generally been stable. In summary, Norberto is a 40-year-old gentleman with spastic quadriplegia. He continues to benefit from Botox injections into the knee flexors to improve ability to activate knee extension 4 standing and transfer activities. We will plan on staying with a 3 to 4 month schedule for injections. We do not plan on repeating the elbow flexors at this time as it does not seem to have been of any specific benefit. He will continue regular stretching and doing as much weightbearing transfers as possible. Cc: Lucy Elizabeth documented in this encounter Plan of Treatment Scheduled Referrals Name Type Priority Associated Diagnoses Order Schedule AMB MEDICATION PRIOR AUTHORIZATION Outpatient Referral Routine Quadriplegic infantile cerebral palsy (HCC-CMS) Ordered: 09/29/2010 documented as of this encounter Visit Diagnoses Diagnosis 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HCC-CMS)- Primary Congenital quadriplegia documented in this encounter Care Teams Milk Pickup Truck Driver Relationship Specialty Start Date End Date Lucy Elizabeth MD [address] [place] [phone] PCP - General 09/28/08 03/08/21 documented as of this encounter
--- OUTSIDE RECORDS SUMMARY | 2023-10-25 14:43 | XMS_ITS | Encounter Summary ---
Author Organization [facility] Address [address] [place] [address] Care Team Providers Care Ham Doctor Name Role Phone Lucy Elizabeth MD Primary Care Provider [phone] Reason for Visit * Reason Comments Follow-up botox Encounter Details Date Type Department Care Team (Latest Contact Info) Description 08/27/2009 13:00 EDT Office Visit [facility] Rehabilitation Therapy [address] [address] Naga Melendez MD [address] [place] [phone] Quadriplegic infantile cerebral palsy (HCC-CMS) (Primary Dx) Social History Tobacco Use Types Packs/Day Years Used Date Smoking Tobacco: Never Assessed Sex and Gender Information Value Date Recorded Sex Assigned at Not on file Gender Identity Male 06/12/2019 8:16 EDT Sexual Orientation Not on file documented as of this encounter Progress Notes * Naga Melendez MD - 08/28/2009 1331 EDT PHYSICAL MEDICINE / REHABILITATION PROGRESS/FOLLOWUP NOTE - 08/27/2009 REASON FOR FOLLOWUP: History of spastic quadriplegic cerebral palsy. SUBJECTIVE: Janes is a 39-year-old gentleman with history of spastic quadriplegia. He has receiveda number of botulinum toxin injections over the last uulo-myi-n-half to his hamstrings. He has benefited from these injections in regard to their being continued improvement in weightbearing strengthfor stand pivot transfers. We have not demonstrated a significant change in his overall knee range of motion, but that he has continued to be able to bear weight through his legs, more so than prior to the injections. His father and he both feel that as he is a bit past the 3-month romario from the last set of Botox that he is still stable in regard to his weightbearing status. We reviewed last visit that our goals at this point are to try and stretch out the interval between injections as long aspossible to see how often he needs these injections to maintain adequate weightbearing. He has significant flexion synergy pattern of the right upper extremity. This includes elbow flexion, pronation and wrist flexion. We discussed the possibility of considering botulinum toxin injections into the right elbow flexors and wrist flexors in particular, to try and decrease some of this pat tern and perhaps improve arm use. OBJECTIVE: On examination today, I observed Janes weightbear through his legs requiring only min assist contact guard for balance. He was with min assist able to pivot over and sit down on the examination table. He has 30 degree knee flexion contractures bilaterally. He has about 70 degree popliteal angles bilaterally. Tone in the hamstrings is modified Kate score of 1+. IMPRESSION AND PLAN: In summary, Janes is a 39-year-old gentleman with history of spastic quadriplegia. He is plateaued and remaining stable in regard to weightbearing through his lower extremities with significant hamstring tone and contracture. We are not planning on repeating injections right now. However, we are going to schedule an appointment, hopefully in mid October to reevaluate and possibly consider repeat injections at that time, which may include the right upper extremity into the elbow flexors and wrist flexors. He will continue his regular weightbearing activities as tolerated and should have daily range of motion. Electronically Signed by Naga Melendez MD 08/28/2009 13:31 Naga Melendez MD - Naga Melendez MD - [facility] Job ID: SM Doc ID: [id number] Ext Doc ID: [id number] cc: Lucy Elizabeth MD * Naga Melendez MD - 08/28/2009 1319 EDT .dic documented in this encounter Plan of Treatment Not on file documented as of this encounter Visit Diagnoses Diagnosis 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[facility]-CMS)- Primary Congenital quadriplegia documented in this encounter Historical Medications * This list may reflect changes made after this encounter. Medication Sig Dispensed Refills Start Date End Date acetaminophen (TYLENOL) 325 mg tablet Take 1 Tablet by mouth as needed. prn triamterene-hydrochlorot hiazide (MAXZIDE) 75-50 mg per tablet Take 1 Tablet by mouth daily. VITAMIN B COMPLEX (B-50 COMPLEX ORAL) Take by mouth daily. potassium chloride (KLOR-CON) 20 mEq packet Take 20 mEq by mouth 2 times daily. allopurinol (ZYLOPRIM) 100 mg tablet Take 2 Tablets by mouth daily. 200 mg AM atenolol (TENORMIN) 50 mg tablet Take 2 Tablets by mouth daily. divalproex (DEPAKOTE) 500 mg delayed release tablet Take 1 Tablet by mouth 2 times daily. COD LIVER OIL ORAL Take 400 mg by mouth daily. A&d 10,000IU/400mg 03/23/2014 Magnesium 100 mg Tab Take 135 mg by mouth daily. 07/21/2010 Zinc 10 mg Tab Take 10 mg by mouth daily. 07/21/2010 magnesium oxide (MAG-OX) 400 mg tablet Take 400 mg by mouth 2 times daily. 07/21/2010 calcium gluconate 500 mg tablet Take 660 mg by mouth daily. 07/21/2010 DICLOFENAC SODIUM/MISOPROSTOL (ARTHROTEC 50 ORAL) Take 50 mg by mouth 2 times daily. 01/30/2011 simvastatin (ZOCOR) 80 mg tablet Take 80 mg by mouth at bedtime. 01/30/2011 Chromium Picolinate 400 mcg Tab Take 200 mcg by mouth daily 08/06/2019 Rhonda's Wort 300 mg Cap Take 300 mg by mouth 3 times daily. 11/20/2012 levothyroxine (SYNTHROID) 125 mcg tablet Take 125 mcg by mouth daily. 06/18/2014 tolterodine (DETROL LA) 4 mg ER capsule Take 2 mg by mouth daily. 01/30/2011 added in this encounter Care Teams Ham Doctor Relationship Specialty Start Date End Date Lucy Elizabeth MD [address] [place] [phone] PCP - General 09/28/08 03/08/21 documented as of this encounter
--- OUTSIDE RECORDS SUMMARY | 2023-10-25 14:43 | XMS_ITS | Encounter Summary ---
Author Organization [facility] Address [address] [place] [address] Care Team Providers Care News Cameraman Name Role Phone Lucy Elizabeth MD Primary Care Provider [phone] Reason for Referral * Consult (Routine/Next Available) - Denied Specialty Diagnoses / Procedures Referred By Rubina t Referred To Contact Diagnoses 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HCC-CMS) Naga Melendez MD [address] [place] [phone] Referral ID Status Reason Start Date Expiration Date V isits Requested Visits Authorized [id number] Denied Specialty Services Required 08/31/2011 1 0 Question Answer Medication to be Prior Authorized: Botox for next visit. Comments Botox 400 units Reason for Visit * Reason Comments Botox Injection Encounter Details Date Type Department Care Team (Latest Contact Info) Description 08/31/2011 13:30 EDT Office Visit [facility] Rehabilitation Therapy [place] [phone] [place] [address] Naga Melendez MD [address] [place] [phone] 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HCC-CMS) (Primary Dx) Social History Tobacco Use Types Packs/Day Years Used Date Smoking Tobacco: Never Assessed Sex and Gender Information Value Date Recorded Sex Assigned at Not on file Gender Identity Male 06/12/2019 8:16 EDT Sexual Orientation Not on file documented as of this encounter Patient Instructions * Patient Instructions* Naga Melendez MD - 08/31/2011 13:53 EDT Physical Medicine and Rehabilitation Naga Melendez M.D. [address] [place] [phone] Discharge Instructions after Botulinum Toxin Injections Diet [...] for any questions you may have at [phone] x 2. The office is open Sunday-Sunday from 8:00 am to 5:00pm. On weekends or evenings, if you have a serious problem, please call your Wood Repatcher, Primary CarePhysician or go to your local Emergency Room. If for any reason a follow-up appointment was not provided or you need to reschedule an appointment, please call our office, the [facility] ([phone] or [phone]) or the [facility] ([phone] or [phone]) if that is where you are seen. 06/12ss documented in this encounter Progress Notes * Naga Melendez MD - 09/01/2011 0926 EDT Botulinum Toxin Injection Procedure Note Pre-Procedure Diagnosis: Spastic tetraplegia CP Indications: spasticity that adversely impacts transfer ability. Knee flexor tone and risk for lossof weightbaring for stand pivot transfers. Janes has continued to benefit from Botox injections into the hamstrings to reduce knee flexor tone, improve his ability to stand and continue to do stand pivot transfers. We have been on a pretty consistent 3-month schedule of doing this every 3 to 4 months. This has been 4-month interval and he reports that that has not caused any problems. Examination reveals knee flexor tone modified Kate score of 2 to 3 today. He is still able to do some weightbearing for assisted stand pivot transfers. He has not been wearing his compression stockings consistently over the last couple of weeks and, therefore, has developed 3+ pitting edema in his feet. We discussed making sure that he is more consistently using his stockings so that he does not develop swelling to this degree. After reviewing above history and findings we [...] wasinjected intramuscularly using EMG guidance as follows. BOTOX Hamstrings: Units Right 200 Left 200 Total botox units injected: 400 Total botox units wasted: 0 Plan: Return to clinic for repeat botulinum injection in 4 months. An After Visit Summary was printed and given to the patient. Follow up with improved use of compression garments. * José Luis Rm RN - 08/31/2011 1440 EDT Botulinum toxin Lot #: [id number] Botulinum toxin expiration date: Feb 2014 Botulinum toxin [facility] # [id number] Total Botulinum toxin units injected: 400 Total Botulinum toxin units wasted: 0 documented in this encounter Plan of Treatment Scheduled Referrals Name Type Priority Associated Diagnoses Orde r Schedule AMB MEDICATION PRIOR AUTHORIZATION Outpatient Referral Routine 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[facility]) Ordered: 08/31/2011 documented as of this encounter Visit Diagnoses Diagnosis 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[facility])- Primary Congenital quadriplegia documented in this encounter Discontinued Medications Medication Sig Discontinue Reason Start Date End Da te OXYBUTYNIN CHLORIDE (DITROPAN ORAL) Take 15 mg by mouth 3 times daily. Takes 1 tablet every am & noon, and 2 tablets in PM Patient Stopped Taking 08/31/2011 KINNEY'S YEAST ORAL Take by mouth 2 times daily. Patient Stopped Taking 08/31/2011 ERGOCALCIFEROL, VITAMIN D2, (VITAMIN D ORAL) Take by mouth once a week. Patient Stopped Taking 10/25/2010 08/31/2011 CELECOXIB (CELEBREX ORAL) Take 200 mg by mouth daily. Patient Stopped Taking 08/31/2011 documented as of this encounter Historical Medications * This list may reflect changes made after this encounter. Medication Sig Dispensed Refills Start Date End Date DICLOFENAC SODIUM/MISOPROSTOL (ARTHROTEC 50 ORAL) Take by mouth 2 times daily. 07/18/2012 tolterodine (DETROL LA) 4 mg ER capsule Take 4 mg by mouth daily. 07/18/2012 added in this encounter Care Teams News Cameraman Relationship Specialty Start Date End Date Lucy Elizabeth MD [address] [place] [phone] PCP - General 09/28/08 03/08/21 documented as of this encounter
--- OUTSIDE RECORDS SUMMARY | 2023-10-25 14:43 | XMS_ITS | Encounter Summary ---
Author Organization [facility] Address [address] [place] [address] Care Team Providers Care Athletic Team Physician Name Role Phone Unavailable Primary Care Provider Unavailabl e Encounter Details Date Type Department Care Team (Late st Contact Info) Description 05/15/2008 Before PRISM Converted Visit (Maple) [facility] - Maple conversion [address] [place] [address] Naga Melendez MD [address] [place] [id number] Social History Tobacco Use Types Packs/Day Years Used Date Smoking Tobacco: Never Assessed Sex and Gender Information Value Date Recorded Sex Assigned at Not on file Gender Identity Male 06/12/2019 8:16 EDT Sexual Orientation Not on file documented as of this encounter Progress Notes * Naga Melendez MD - 04/07/2009 1026 EST PHYSICAL MEDICINE / REHABILITATION PROGRESS/FOLLOWUP NOTE - 06/12/2008 OUTPATIENT FOLLOW-UP CLINIC DATE OF SERVICE: 06/12/2008 ATTENDING PHYSICIAN: Naga Melendez MD PRIMARY CARE PHYSICIAN: Lucy Elizabeth MD REASON FOR FOLLOW UP History of spastic quadriplegic cerebral palsy, status post Botox injections to hamstrings about six weeks ago. HISTORY OF PRESENT ILLNESS Janes is a 37-year-old gentleman with above mentioned history. He underwent Botox injections to bilateral hamstrings a few weeks ago to decrease knee flexion tone and improve standing for transfers.Janes reports that he feels the Botox has been helpful in regard to decreasing knee stiffness and improving his ability to weightbearthrough his legs with caregivers. He is still requiring assistance for transfers but feels that he is requiring less support than prior to the Botox. Andrew parents were present today. We dismissed them for a little while so that Janes could express some of his frustrations about his long-term disability in comparison to his brotherlives. He hastwo healthy brothers who are and having children of their own at this point. This is a source of some frustration for Janes. Also one of his brotherhas recently had a child who was prematureand Janes is a little upset about this as he was premature himself. I had a long, theron discussion with Andrew parents after my discussion with Janes today. A lot ofthese issues are not new for Janes, but I just wanted to make sure his parents continue to assist him in dealing with his psychological issues as related to his chronic disability. MEDICATIONS Medications were reviewed and updated. He continues to live through [facility] housing. He sounds like he is pretty happy in that setting. He still visits with his family on weekends a few times a month. PHYSICAL EXAMINATION On examination, Janes generally was appearing well. During my long discussion with him, he became a bit emotional. Hecontinues to have upper extremity spasticity but is able despite that to use his arms for wheelchair mobility. He has continued tightness of his knee flexors. I did not quantify hiscontractures today. However, today he was able to bear full weight through his lower extremities though his knees were still flexed at about 50 degrees. He was only using his father for balance but for no support in weightbearing. SUMMARY In summary, Janes has had benefits from recent Botox injections in regard to decreasing knee flexion tone and improved ability to bear weight through his legs. Based on his initial response, he and his family feel it would be reasonable to consider repeating these injections sometime in the next several weeks. Janes has ongoing psychological issues understandably associated with his chronic disability. He has been in counseling in the past. He and his family will discuss whether or not he wishes to returnto some counseling to deal with ongoing transition through life with chronic disability especially in regard to comparing his life to those of his brothers who are able bodied. RECOMMENDATIONS I will see Janes back sometime in the next six weeks to reassess and potentially repeat Botox. I spent 45 minutes with Janes. Entire time face to face, majority on counseling with him and then with his family as well. Signed by Naga Melendez MD 06/17/2008 14:15 Naga Melendez MD - Naga Melendez MD - Job ID: [id number] Doc ID: [id number] cc: Lucy Elizabeth MD * Naga Melendez MD - 09/01/2008 1039 EDT PHYSICAL MEDICINE / REHABILITATION PROGRESS/FOLLOWUP NOTE - 05/15/2008 REASON FOR FOLLOWUP TODAY History of spastic quadriplegia with ongoing lower extremity spasticity, predominantly in the knee flexors, which have limited weightbearing, transfers and have led to some lower extremity discomfort. SUBJECTIVE Janes is a 37-year-old gentleman with above diagnosis. He received his first set of Botox injections from ne back in January. He responded nicely to them in regard to improved ability to activate extension of his lower extremities during weightbearing transfers, thus improving his ability to assist caregivers with his mobility. There was also a decrease in knee pain noted. After the last visit, we discussed potentially repeating them today. Janes presents with his father and based on response of the last Botox injections, they are inclined to repeat them today. Medications were reviewed today. PHYSICAL EXAMINATION He continues to have significant spasticity in the lower extremities, as well as hyperreflexia. Knee flexion, tone and contracture is noted. Range of motion measurements not taken today. After reviewing the above history and findings, I proceeded with repeat Botox injections today. I discussed possible side effects and complications associated with utilizing botulinum toxin, including systemic absorption, respiratory suppression, swallowing dysfunction and general weakness. Consentwas obtained. EMG localization was used for the injections today. Localization was obtained based on hyperactive motor units with needle electrode insertion. 150 units was split between the hamstrings on each side. Four injection sites in each side were done. Janes tolerated the injection procedure very well. Additionally, he has an ulcer over his left fibular head. I redid the dressing with Aquacel and Tegaderm. We did give him some Aquacel from the clinic today and Irecommend that they continue to change that dressing every couple of days or more frequently if there is excessive drainage noted. In summary, Janes Gooden is status post repeat Botox injections to hamstrings today. I also did some wound care for a left fibular head lesion. I will follow up with him in six weeks to assess his response to these injections and reevaluate his wound as necessary. He should continue his usual activities. Signed by Naga Melendez MD 05/20/2008 14:18 Naga Melendez MD - Naga Melendez MD - [facility] Job ID: [id number] Doc ID: [id number] cc: Lucy Elizabeth MD documented in this encounter Plan of Treatment Not on file documented as of this encounter Visit Diagnoses Not on filedocumented in this encounter
--- OUTSIDE RECORDS SUMMARY | 2023-10-25 14:43 | XMS_ITS | Encounter Summary ---
Author Organization [facility] Address [address] [place] [address] Care Team Providers Care Dye Maker Name Role Phone Lucy Elizabeth MD Primary Care Provider [phone] Reason for Referral * Consult (Routine/Next Available) - Closed Specialty Diagnoses / Procedures Referred By Rubina perkins Referred To Contact Physical Medicine and Rehabilitation / Physical Medicine and Rehab Diagnoses 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[facility]) Naga Melendez MD [address] [facility] [address] [place] [address] Naga Melendez MD [address] [facility] [address] [place] [address] Referral ID Status Reason Start Date Expiration Date V isits Requested Visits Authorized [id number] Closed Specialty Services Required 04/03/2012 12/01/2012 1 1 Question Answer Medication to be Prior Authorized: Botox for today. Comments Botox 400 units Reason for Visit * Reason Comments Botox Injection Encounter Details Date Type Department Care Team (Latest Contact Info) Description 04/03/2012 13:00 EST Office Visit [facility] Rehabilitation Therapy - [address] [id number] Naga Melendez MD [address] [place] [address] [place] [phone] 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[facility]) (Primary Dx) Discharge Disposition: Auto Discharge Social History Tobacco Use Types Packs/Day Years Used Date Smoking Tobacco: Never Assessed Sex and Gender Information Value Date Recorded Sex Assigned at Not on file Gender Identity Male 06/12/2019 8:16 EDT Sexual Orientation Not on file documented as of this encounter Patient Instructions * Patient Instructions* Naga Melendez MD - 04/03/2012 13:23 EST Physical Medicine and Rehabilitation Naga Melendez M.D. [address] [place] [address] Discharge Instructions after Botulinum Toxin Injections Diet [...] for any questions you may have at [phone] x 2. The office is open Sunday-Sunday from 8:00 am to 5:00pm. On weekends or evenings, if you have a serious problem, please call your Collaborating Supervising Physician, Primary CarePhysician or go to your local Emergency Room. If for any reason a follow-up appointment was not provided or you need to reschedule an appointment, please call our office, the [facility]. Clinic ([phone] or [phone]) or the [facility] ([phone] or [phone]) if that is where you are seen. 06/12ss documented in this encounter Discharge Disposition Disposition Code Departure Means Destination Auto Discharge documented in this encounter Progress Notes * Naga Melendez MD - 04/03/2012 1402 EST Botulinum Toxin Injection Procedure Note Pre-Procedure Diagnosis: Spastic tetraplegia CP Indications: spasticity that adversely impacts function and risk for progressive contracture. Norberto is a 41-year-old gentleman with the above-mentioned history. He continues to benefit from Botox injections into the hamstrings to decrease knee flexor tone. This allows him more success with stand pivot transfers and ability to maintain weightbearing through his legs. He has continued to be able to do stand pivot transfers with contact guard to minimal assistance as opposed to requiring a Lico lift or dependent transfer. He does report ongoing benefits from the injections, and as we have stayed on an every 3 to 4-monthschedule, he really does not notice any deterioration in his function. Examination reveals tight hamstrings and contracture with tone a modified Kate score of 3 today. Norberto needs today min assist supervision and minimal assistance to do a stand pivot transfer from the wheelchair to the exam table and back. He also has 2 to 3+ pitting edema of his feet and ankles. He does have some compression stockings on. His mother occasionally when he is at their home will do some Ganesh wrapping of his feet and keeping them elevated and is able to get the swelling down. However, in his current living arrangement, there is nobody to really help him do that. I provided him with some Tubigrip today that they could put over his feet to help with additional compression. After reviewing above history and findings we [...] for repeat botulinum injection in 3 months. Continue to maintain weightbaring and transfers. Work with tubi-custom van converter for feet to try and further improve edema reduction. An After Visit Summary was printed and given to the patient. * José Luis Rm, RN - 04/03/2012 1330 EST Botulinum toxin Lot #: [id number] Botulinum toxin expiration date: July2014 Botulinum toxin [facility] # [id number] Total Botulinum toxin units injected: 400 Total Botulinum toxin units wasted: 0 documented in this encounter Plan of Treatment Scheduled Referrals Name Type Priority Associated Diagnoses Orde r Schedule AMB MEDICATION PRIOR AUTHORIZATION Outpatient Referral Routine 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[facility]) Ordered: 04/03/2012 documented as of this encounter Visit Diagnoses Diagnosis 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[facility])- Primary Congenital quadriplegia documented in this encounter Historical Medications * This list may reflect changes made after this encounter. Medication Sig Dispensed Refills Start Date End Date celecoxib (CELEBREX) 100 mg capsule Take 1 Capsule by mouth as needed. added in this encounter Care Teams Dye Maker Relationship Specialty Start Date End Date Lucy Elizabeth MD [address] [place] [phone] PCP - General 09/28/08 03/08/21 documented as of this encounter
--- OUTSIDE RECORDS SUMMARY | 2023-10-25 14:43 | XMS_ITS | Encounter Summary ---
Author Organization [facility] Address [address] [place] [address] Care Team Providers Care Instructional Assistant Name Role Phone Lucy Elizabeth MD Primary Care Provider [phone] Reason for Visit * Reason Comments Botox Injection Encounter Details Date Type Department Care Team (Latest Contact Info) Description 07/21/2010 14:00 EDT Office Visit [facility] Rehabilitation Therapy [facility] [address] [place], [place] [address] Naga Melendez MD [address] [place] [address] Quadriplegic infantile cerebral palsy (HCC-CMS) (Primary Dx) Social History Tobacco Use Types Packs/Day Years Used Date Smoking Tobacco: Never Assessed Sex and Gender Information Value Date Recorded Sex Assigned at Not on file Gender Identity Male 06/12/2019 8:16 EDT Sexual Orientation Not on file documented as of this encounter Patient Instructions * Patient Instructions* Nereida Javier - 07/21/2010 14:05 EDT Physical Medicine and Rehabilitation Naga Melendez M.D. [address] [place] [address] Discharge Instructions after Botulinum Toxin Injections Diet [...] for any questions you may have at [phone] x 2. The office is open Sunday-Sunday from 8:00 am to 5:00pm. On weekends or evenings, if you have a serious problem, please call your Trust Vault Clerk, Primary CarePhysician or go to your local Emergency Room. If for any reason a follow-up appointment was not provided or you need to reschedule an appointment, please call our office, the [facility] ([phone] or [phone]) or the [facility] ([phone] or [phone]) if that is where you are seen. 06/12ss documented in this encounter Progress Notes * Nereida Javier - 07/21/2010 1436 EDT Physical Medicine and Rehabilitation Naga Melendez M.D. [address] [place] [address] Discharge Instructions after Botulinum Toxin Injections Diet [...] for any questions you may have at [phone] x 2. The office is open Sunday-Sunday from 8:00 am to 5:00pm. On weekends or evenings, if you have a serious problem, please call your Trust Vault Clerk, Primary CarePhysician or go to your local Emergency Room. If for any reason a follow-up appointment was not provided or you need to reschedule an appointment, please call our office, the [facility]. Clinic ([phone] or [phone]) or the [facility] ([phone] or [phone]) if that is where you are seen. Physical Medicine and Rehabilitation Naga Melendez M.D. [address] [place] [address] Discharge Instructions after Botulinum Toxin Injections Diet [...] for any questions you may have at [phone] x 2. The office is open Sunday-Sunday from 8:00 am to 5:00pm. On weekends or evenings, if you have a serious problem, please call your Trust Vault Clerk, Primary CarePhysician or go to your local Emergency Room. If for any reason a follow-up appointment was not provided or you need to reschedule an appointment, please call our office, the [facility] ([phone] or [phone]) or the [facility] ([phone] or [phone]) if that is where you are seen. Physical Medicine and Rehabilitation Naga Melendez M.D. [address] [place] [address] Discharge Instructions after Botulinum Toxin Injections Diet [...] for any questions you may have at [phone] x 2. The office is open Sunday-Sunday from 8:00 am to 5:00pm. On weekends or evenings, if you have a serious problem, please call your Trust Vault Clerk, Primary CarePhysician or go to your local Emergency Room. If for any reason a follow-up appointment was not provided or you need to reschedule an appointment, please call our office, the [facility] ([phone] or [phone]) or the [facility] ([phone] or [phone]) if that is where you are seen. Botulinum toxin Lot #: [id number] Botulinum toxin expiration date: 12/15 Total Botulinum toxin units injected: 400 Total Botulinum toxin units wasted: 0 * Naga Melendez MD - 07/21/2010 1431 EDT Botulinum Toxin Injection Procedure Note Pre-Procedure Diagnosis: Spastic tetraplegia CP. Indications: spasticity that adversely impacts function of transfers due to knee flexor tone. Janes has continued to benefit from hamstring injections to Improve weightbaring so that he can assist with his own transfers. He's had less fall with Botox as well. Exam: shows crouched standing. Knee flexor tone MAS 3. After reviewing above history [...] BOTOX: Short head biceps femoris: Units Right 75 Left 75 Long head biceps femoris: Units Right 125 Left 125 Total botox units injected: 400 Total botox units wasted: 0 Plan: Return to clinic for assessment of botulinum toxin effectiveness in 6 weeks. 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 Error 07/21/2010 Magnesium 100 mg Tab Take 135 mg by mouth daily. Error 07/21/2010 magnesium oxide (MAG-OX) 400 mg tablet Take 400 mg by mouth 2 times daily. Error 07/21/2010 Zinc 10 mg Tab Take 10 mg by mouth daily. Error 07/21/2010 documented as of this encounter Historical Medications * This list may reflect changes made after this encounter. Medication Sig Dispensed Refills Start Date End Date Uolefot-Bjprrbvfr-Sdqy 333-133-5 mg Tab Take 2 Tabs by mouth daily. added in this encounter Care Teams Instructional Assistant Relationship Specialty Start Date End Date Lucy Elizabeth MD [address] [place] [phone] PCP - General 09/28/08 03/08/21 documented as of this encounter
--- OUTSIDE RECORDS SUMMARY | 2023-10-25 14:43 | XMS_ITS | Encounter Summary ---
Author Organization [facility] Address [address] [place] [address] Care Team Providers Care Charge Attendant Name Role Phone uLcy Elizabeth MD Primary Care Provider [phone] Reason for Referral * Consult (Routine/Next Available) - Closed Specialty Diagnoses / Procedures Referred By Rubina perkins Referred To Contact Diagnoses 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HCC-CMS) Lymphedema of lower extremity Naga Melendez MD [address] [address] Referral ID Status Reason Start Date Expiration Date V isits Requested Visits Authorized [id number] Closed Specialty Services Required 07/19/2012 1 1 Question Answer Reason for Request: Progressive lymphedema of the legs. Assess for MLD and garments. Encounter Details Date Type Department Care Team (Late st Contact Info) Description 07/19/2012 Orders Only [facility] Rehabilitation Therapy - [address] [address] Naga Melendez MD [address] [place] [address] 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HCC-CMS) (Primary Dx); Lymphedema of lower extremity Social History Tobacco Use Types Packs/Day Years [...] LYMPHEDEMA EVAL AND TREAT Outpatient Referral Routine 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[facility]) Lymphedema of lower extremity Ordered: 07/19/2012 documented as of this encounter Visit Diagnoses Diagnosis 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
== END 2023-10-25 14:58 ==
LOC: DI 14:38
PROVIDERS: PCP Family Medicine; Visit Provider Podiatrist
DX: M79.672 Pain in left foot (principal)
CPT/HCPCS: 73630

== ENCOUNTER → 2023-11-08 13:21 | Outpatient (BNVA) | payer MEDICARE, MEDICAID, SELFPAY | PROVIDERS: PCP Family Medicine; Referring Provider Family Medicine; Visit Provider Podiatrist | DX: M79.672 Pain in left foot (principal); L97.521 Non-pressure chronic ulcer of other part of left foot limited to breakdown of skin; G82.50 Quadriplegia, unspecified | CPT/HCPCS: 11042 ==

== ENCOUNTER → 2023-12-20 14:07 | Outpatient (BNVA) | payer MEDICARE, MEDICAID, SELFPAY | PROVIDERS: PCP Family Medicine; Referring Provider Family Medicine; Visit Provider Podiatrist | DX: M25.572 Pain in left ankle and joints of left foot; L97.529 Non-pressure chronic ulcer of other part of left foot with unspecified severity; G80.9 Cerebral palsy, unspecified | CPT/HCPCS: 20600; J0702; J1100 ==

== ENCOUNTER 2023-12-21 00:29 | Outpatient (CLI) | payer MEDICARE, MEDICAID, SELFPAY ==
--- OUTSIDE RECORDS SUMMARY | 2023-12-21 00:35 | XMS_ITS | Encounter Summary ---
Author Organization [facility] Address [address] [place] [address] Care Team Providers Care Pattern Chain Builder Name Role Phone Suyapa Duarte MD Primary Care Provider [phone] Reason for Visit * Reason Comments Follow-up Botox Injection * Medication Prior Authorization (See Order Priority) - Order Cancelled Specialty Diagnoses / Procedures Referred By Rubina perkins Referred To Contact Physical Medicine and Rehab Diagnoses 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HCC-CMS) Cora Foster MD [address] [place] [phone] [facility] [place] [address] [place] [address] Referral ID Status Reason Start Date Expiration Date Visits Requested Visits Authorized [id number] Order Cancelled Medication Prior Authorization 2 1 1 Encounter Details Date Type Department Care Team (Latest Contact Info) Description 07/28/2021 15:45 EDT Procedure visit [facility] Physical Medicine & Rehabilitation - [place] [address] Cora Foster MD [address] [place] [phone] 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HCC-CMS) ([facility]) (Primary Dx) Social History Tobacco Use Types [...] ordered but they had not heard from [facility] about where that order was at. They also were not aware that [facility] closing. In that PT session they were [...] unit injection Inject into the muscle. ??? Dkvgjdl-Mfhokoshi-Pdbf 333-133-5 mg Tab Take 2 Tabs by [...] Ambulatory Clinic Admin Med Prior Authorization Request ([id number]) Future Appointments Date Time Provider Department Center 10/27/2021 13:00 Cora Foster MD [facility] None Portions of this document have been prepared with speech recognition software or keyboard data center project manager techniques. Minor irregularities or keyboarding misprints may [...] Department Center 10/27/2021 13:00 Cora Foster MD [facility] None documented in this encounter Plan of Treatment Upcoming Encounters Date Type Department Care Team (Late st Contact Info) Description 01/23/2024 16:00 EST Office Visit [facility] [address] [place] [address] Scott Esquivel MD [address] [place] [address]A [address] [place] [address] documented as of this encounter Visit Diagnoses [...] Units documented in this encounter Care Teams Pattern Chain Builder Relationship Specialty Start Date End Date Suyapa Duarte MD [address] [place] [phone] PCP - General Family Medicine - Primary Care 03/09/21 documented as of this encounter
--- OUTSIDE RECORDS SUMMARY | 2023-12-21 00:35 | XMS_ITS | Encounter Summary ---
Author Organization [facility] Address [address] [place] [address] Care Team Providers Care Ship'S Pilot Name Role Phone Suyapa Duarte MD Primary Care Provider [phone] Reason for Referral * Medication Prior Authorization (Routine/Next Available) - Authorization Not Required Specialty Diagnoses / Procedures Referred By Conteusebia t Referred To Contact Physical Medicine and Rehab Diagnoses Spasticity Mauricio Sheffield MD [address] [place] [phone] [facility] [address] [place] [address] Referral ID Status Reason Start Date Expiration Date Visits Requested Visits Authorized [id number] Authorization Not Required Medication Prior Authorization 01/10/20 [...] quadriplegic cerebral palsy (HCC-CMS) Cora Foster MD [address] [place] [phone] [facility] [address] [place] [address] Referral ID Status Reason Start Date Expiration Date Visits Requested Visits Authorized [id number] Authorized Medication Prior Authorization 04/05/2022 04/05/2023 1 1 Encounter Details Date Type Department Care Team (Late st Contact Info) Description 01/09/2023 13:00 EST Procedure visit [facility] Physical Medicine & Rehabilitation - [facility] [address] [place], [place] [id number] Mauricio Sheffield MD [address] [place] [address] 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HCC-CMS) [...] unit injection Inject into the muscle. ??? Ymgaixr-Padofqetr-Wjnc 333-133-5 mg Tab Take 2 Tabs by [...] Ambulatory Clinic Admin Med Prior Authorization Request ([id number]) Future Appointments Date Time Provider Department Center 04/10/2023 13:00 Mauricio Sheffield MD [facility] None Portions of this document have been prepared with speech recognition software or keyboard clinical data research techniques. Minor irregularities or keyboarding misprints may [...] Department Center 04/10/2023 13:00 Mauricio Sheffield MD [facility] None MAURICIO SHEFFIELD MD documented in this encounter Plan of Treatment Upcoming Encounters Date Type Department Care Team (Late st Contact Info) Description 01/23/2024 16:00 EST Office Visit [facility] [address] [place] [phone] Scott Esquivel MD [address] [place] [address] [address] [place] [address] Scheduled Referrals Name Type Priority Associated Diagnoses [...] Units, intramuscular, NOW X1, 1 dose, On 01/09/23 at 0000, Routine Given 01/09/2023 13:35 EST 300 Units documented in this encounter Care Teams Ship'S Pilot Relationship Specialty Start Date End Date Suyapa Duarte MD [address] [place] [phone] PCP - General Family Medicine - Primary Care 03/09/21 documented as of this encounter
--- OUTSIDE RECORDS SUMMARY | 2023-12-21 00:35 | XMS_ITS | Encounter Summary ---
Author Organization [facility] Address [address] [place] [address] Care Team Providers Care Pile Driving Nozzleman Name Role Phone Suyapa Duarte MD Primary Care Provider [phone] Reason for Referral * Medication Prior Authorization (Routine/Next Available) - Authorized Specialty Diagnoses / Procedures Referred By Rubina perkins Referred To Contact Diagnoses Mauricio Tai MD [address] [place] [phone] [facility] [address] [place] [address] Referral ID Status Reason Start Date Expiration Date Visits Requested Visits Authorized [id number] Authorized Medication Prior Authorization 4 1 1 [...] Referred To Contact Diagnoses Mauricio Tai MD [address] [place] [phone] [facility] [address] [place] [address] Referral ID Status Reason Start Date Expiration Date Visits Requested Visits Authorized [id number] Authorized Medication Prior Authorization 04/10/2023 1 1 Encounter Details Date Type Department Care Team (Late st Contact Info) Description 07/17/2023 13:00 EDT Procedure visit [facility] Physical Medicine & Rehabilitation - [address] [place] [address] Mauricio Antonio MD [address] [place] [address] Spasticity (Primary Dx); Spastic quadriplegic [...] Info) Description 01/23/2024 16:00 EST Office Visit [facility] [address] [place] [address] Scott Esquivel MD [address] [place] [address]-[address] [place] [address] Scheduled Referrals Name Type Priority [...] Units documented in this encounter Care Teams Pile Driving Nozzleman Relationship Specialty Start Date End Date Suyapa Duarte MD [address] [place] [phone] PCP - General Family Medicine - Primary Care 03/09/21 documented as of this encounter
--- OUTSIDE RECORDS SUMMARY | 2023-12-21 00:35 | XMS_ITS | Encounter Summary ---
Author Organization [facility] Address [address] [place] [address] Care Team Providers Care Homicide Squad Lieutenant Name Role Phone Suyapa Duarte MD Primary Care Provider [phone] Encounter Details Date Type Department Care Team (Late st Contact Info) Description 11/08/2022 Results Only [facility] Laboratory Services - [facility] [address] [place] [address] Oliver White MD [address] [place] [phone] Social History Tobacco Use Types Packs/Day [...] as of this encounter Plan of Treatment Upcoming Encounters Date Type Department Care Team (Late st Contact Info) Description 01/23/2024 16:00 EST Office Visit [facility] Neurology Clinic [address] [place] [address] Scott Esquivel MD [address] [facility] [address] [place] [phone] documented as of this encounter Procedures Procedure Name Priority Date/Time Associated Diagnosis Comments HEMOGLOBIN A1C Routine 05/17/2023 11:07 EDT documented in this encounter Results * HEMOGLOBIN A1C (05/17/2023 11:07 EDT) HgB A1C% 5.3 4.0 - 6.0 % [facility] Average Calculated 96 60 - 115 mg/dL [facility] 05/17/2023 11:0 7 EDT Suyapa Duarte MD CHEMISTRY & BLOOD GA S ORDERABLES [facility] [address] [place] [address] documented in this encounter Visit Diagnoses Not on filedocumented in this encounter Care Teams Homicide Squad Lieutenant Relationship Specialty Start Date End Date Suyapa Duarte MD [address] [place] [phone] PCP - General Family Medicine - Primary Care 03/09/21 documented as of this encounter
--- OUTSIDE RECORDS SUMMARY | 2023-12-21 00:35 | XMS_ITS | Encounter Summary ---
Author Organization [facility] Address [address] [place] [address] Care Team Providers Care Senior Materials Planner Name Role Phone Suyapa Daurte MD Primary Care Provider [phone] Reason for Referral * Medication Prior Authorization (Urgent) - Pending Review Specialty Diagnoses / Procedures Referred By Rubina perkins Referred To Contact Neurology Diagnoses Spasticity Scott Esquivel MD [address] [place], [place] [address] [address] [place] [address] [facility] [address] [place] [id number] Referral ID Status Reason Start Date Expiration Date Visits Requested Visits Authorized [id number] Pending Review Medication Prior Authorization 12/17/19 24 1 1 Question Answer Treatment start date: 01/23/2024 Medication: Xeomin (incobotulinum toxin) Interval of injections: Every 12 weeks Dose (waste included): 300 Injection location: Lower limb Billing codes: 81175 1-4 muscles limb, 71728 each additional limb 1-4 muscles, [id number] EMG guidance Comments The purpose of this request is for [facility] Neu[facility] Clinic tracking only. Encounter Details Date Type Department Care Team (Late st Contact Info) Description 12/17/2023 Orders Only [facility] - [facility] Neurology Clinic [address] [place], [place] [phone] Hopkins, Cora, RN Spasticity (Primary Dx) Social History Tobacco Use [...] of this encounter Progress Notes * Cora Hopkins RN - 12/17/2023 1101 EDT Botox referral entry. documented in this encounter Plan of Treatment Upcoming Encounters Date Type Department Care Team (Late st Contact Info) Description 01/23/2024 16:00 EST Office Visit [facility] Neurology Clinic [address] [place] [address] Scott Esquivel MD [address] [place] [address] [address] [place] [address] Scheduled Referrals Name Type Priority Associated Diagnoses Order Schedule AMB CONS/FOLLOW UP BOTULINUM TOXIN INJECTION PRIOR AUTHORIZATION Outpatient Referral Urgent Spasticity Expected: 12/18/2023 (Approximate), Expires: 12/16/2098 documented as of this encounter Visit Diagnoses Diagnosis Spasticity- Primary Abnormal involuntary movements documented in this encounter Care Teams Senior Materials Planner Relationship Specialty Start Date End Date Suyapa Duarte MD [address] [place] [phone] PCP - General Family Medicine - Primary Care 03/09/21 documented as of this encounter
--- OUTSIDE RECORDS SUMMARY | 2023-12-21 00:35 | XMS_ITS | Encounter Summary ---
Author Organization [facility] Address [address] [place] [address] Care Team Providers Care Pals Specialist Name Role Phone Suyapa Duarte MD Primary Care Provider Encounter Details Date Type Department Care Team (Latest Contact Info) Description 11/08/2022 [facility] [address] [place] [address] Oliver White MD [address] [place] [phone] Generalized-onset seizures (HCC-CMS) (Primary Dx); [...] Info) Description 01/23/2024 16:00 EST Office Visit [facility] Neu[facility] Clinic [address] [place] [address] Scott Esquivel MD 130 [facility] [address] [place] [address] documented as of this encounter Results * (ABNORMAL) COMPREHENSIVE METABOLIC PANEL (CMP) (11/08/2022 13:52 EDT) Sodium 140 136 - 145 mmol/L 11/08/2022 14:35 [facility] Potassium 4.1 3.5 - 5.0 mmol/L 11/08/2022 14:35 [facility] Chloride 104 96 - 110 mmol/L 11/08/2022 14:35 [facility] CO2 Total 22 22 - 32 mmol/L 11/08/2022 14:35 [facility] Glucose 139(H) 70 - 99 mg/dl 11/08/2022 14:35 [facility] BUN 26 10 - 26 mg/dL 11/08/2022 14:35 [facility] Creatinine 1.06 0.66 - 1.25 mg/dL 11/08/2022 14:35 [facility] eGFR 84 >60 mL/min/1.7 3m2 11/08/2022 14:35 [facility] Total Protein 7.0 6.3 - 8.2 g/dL 11/08/2022 14:35 [facility] Albumin 4.2 3.4 - 4.9 g/dL 11/08/2022 14:35 [facility] Alkaline Phosphatase 70 38 - 126 U/L 11/08/2022 14:35 [facility] AST 29 15 - 46 U/L 11/08/2022 14:35 [facility] ALT 29 <50 U/L 11/08/2022 14:35 [facility] Bilirubin, Total 0.5 <1.4 mg/dL 11/09/19 14:35 [facility] Calcium 10.2 8.5 - 10.5 mg/dL 11/08/2022 14:35 [facility] Albumin/Globulin Ratio 1.5 1.0 - 2.5 g/dL 11/08/2022 14:35 [facility] Anion Gap 14 5 - 14 mmol/L 11/08/2022 14:35 [facility] Blood VENOUS BLOOD / Unknown Venipuncture / Unknown 11/08/2022 13:52 EDT 11/08/2022 13:52 EDT Oliver White MD CHEMISTRY & BLOOD GA S ORDERABLES Performing Organization Address City/State/[facility] Co de Phone Number [facility] [address] [place] [address] * (ABNORMAL) LIPID PROFILE (INCLUDES CHOLESTEROL, TRIGLYCERIDES, HDL, LDL) (11/08/2022 13:52 EDT) Cholesterol 126 <200 mg/dL 11/08/2022 14:35 [facility] Comment:Note that therapeuti c goals will differ between patients based on cardiac risk factors and current medical therapy. HDL 35(L) >=40 mg/dl 11/08/2022 14:35 [facility] Comment:Note that therapeuti c goals will differ between patients based on cardiac risk factors and current medical therapy. LDL, Calculated 54 <160 mg/dL 14:35 [facility] Comment:Note that therapeuti c goals will differ between patients based on cardiac risk factors and current medical therapy. Triglyceride 187(H) <=150 mg/dL 11/08/2022 14:35 [facility] Comment:Note that therapeuti c goals will differ between patients based on cardiac risk factors and current medical therapy. Chol/HDL Ratio 3.6 See Note 11/08/2022 14:35 [facility] Comment: NOTE: Desirable Ratio = <4.1 Patient At Risk Ratio = >5.0(Males) ?>6.0(Females) Non HDL Cholesterol 91 <160 mg/dL 11/08/2022 14:35 EDT [facility] Comment:Note that therapeuti c goals will differ between patients based on cardiac risk factors and current medical therapy. Blood VENOUS BLOOD / Unknown Venipuncture / Unknown 11/08/2022 13:52 EDT 11/08/2022 13:52 EDT Oliver White MD CHEMISTRY & BLOOD GA S ORDERABLES Performing Organization Address [facility] Co de Phone Number [facility] [address] [place] [address] * T3 FREE (11/08/2022 13:52 EDT) T3, Free 3.3 2.8 - 5.3 pg/mL 11/08/2022 21:25 EDT [facility] Blood VENOUS BLOOD / Unknown Venipuncture / Unknown 11/08/2022 13:52 EDT 11/08/2022 13:52 EDT Oliver White MD CHEMISTRY & BLOOD GA S ORDERABLES Performing Organization Address [facility]/ZIP Co de Phone Number [facility] [address] [place] [address] * T4 FREE (11/08/2022 13:52 EDT) T4, Free 1.4 0.8 - 2.2 ng/dL 11/08/2022 14:56 EDT [facility] Blood VENOUS BLOOD / Unknown Venipuncture / Unknown 11/08/2022 13:52 EDT 11/08/2022 13:52 EDT Oliver White MD CHEMISTRY & BLOOD GA S ORDERABLES Performing Organization Address [facility] Co de Phone Number [facility] [address] [place] [address] * TSH (11/08/2022 13:52 EDT) TSH 0.84 0.47 - 4.68 mIU/L 11/08/2022 15:10 EDT [facility] Blood VENOUS BLOOD / Unknown Venipuncture / Unknown 11/08/2022 13:52 EDT 11/08/2022 13:52 EDT Narrative [facility] - 11/08/2022 15:10 EDT The results of this assay can be falsely lowered due to the consumption of Biotin. Oliver White MD CHEMISTRY & BLOOD GA S ORDERABLES Performing Organization Address City/[facility]/ZIP Co de Phone Number [facility] [address] [place] [address] * VALPROIC ACID LEVEL (11/08/2022 13:52 EDT) Valproic Acid 60 50 - 100 ug/mL 11/08/2022 14:40 EDT [facility] Blood VENOUS BLOOD / Unknown Venipuncture / Unknown 11/08/2022 13:52 EDT 11/08/2022 13:52 EDT Oliver White MD CHEMISTRY & BLOOD GA S ORDERABLES Performing Organization Address City/[facility]/ZIP Co de Phone Number [facility] [address] [place] [address] documented in this encounter Visit Diagnoses Diagnosis Generalized-onset seizures (HCC-CMS)- Primary Other convulsions Hypothyroidism, unspecified type Pure hypercholesterolemia documented in this encounter Care Teams Pals Specialist Relationship Specialty Start Date End Date Suyapa Duarte MD [address] [place] [phone] PCP - General Family Medicine - Primary Care 03/09/21 documented as of this encounter
--- OUTSIDE RECORDS SUMMARY | 2023-12-21 00:35 | XMS_ITS | Encounter Summary ---
Author Organization [facility] Address [address] [place] [address] Care Team Providers Care Facility Specialist Name Role Phone Suyapa Duarte MD Primary Care Provider [phone] Encounter Details Date Type Department Care Team (Latest Contact Info) Description 10/26/2021 Plan of Care Documentation [facility] Rehabilitation Therapy [address] [phone] Social History Tobacco Use Types Packs/Day Years [...] Notes * Yoko Scott, PT - 10/26/2021 3653 EDT Outpatient Rehab Plan of Care Assessment [...] by the physical therapist and/or physical therapist medical office receptionist assistant when medically appropriate Currently on hold pending [...] Info) Description 01/23/2024 16:00 EST Office Visit [facility] Neurology Clinic [address] [place] [address] Scott Esquivel MD [address] [facility]- [address] [place] [address] documented as of this encounter Visit Diagnoses Not on filedocumented in this encounter Care Teams Facility Specialist Relationship Specialty Start Date End Date Suyapa Duarte MD [address] [place] [phone] PCP - General Family Medicine - Primary Care 03/09/21 documented as of this encounter
--- OUTSIDE RECORDS SUMMARY | 2023-12-21 00:35 | XMS_ITS | Encounter Summary ---
Author Organization [facility] Address [address] [place] [address] Care Team Providers Care Metal Model Maker Name Role Phone Suyapa Duarte MD Primary Care Provider Reason for Visit * Reason Onset Date Comments Appointment Related 03/20/2023 Encounter Details Date Type Department Care Team (Late st Contact Info) Description 03/20/2023 Telephone [facility] Physical Medicine & Rehabilitation - [address] [address] Mauricio Antonio MD [address] [place] [phone] Appointment Related Social History Tobacco Use [...] Appointment Related Summary: They will be in [place] [address]. wanted to see if he can come in that same day since [facility]. Please call David at [phone] Appointment Offered? No Amirah Soriano 03/20/2023 11:33 documented in this encounter Plan of Treatment Upcoming Encounters Date Type Department Care Team (Late st Contact Info) Description 01/23/2024 16:00 EST Office Visit [facility] Neurology Clinic [address] [place] [address] Scott Esquivel MD 130 [facility]- [address] [place] [address] documented as of this encounter Visit Diagnoses Not on filedocumented in this encounter Care Teams Metal Model Maker Relationship Specialty Start Date End Date Suyapa Duarte MD [address] [place] [phone] PCP - General Family Medicine - Primary Care 03/09/21 documented as of this encounter
--- OUTSIDE RECORDS SUMMARY | 2023-12-21 00:35 | XMS_ITS | Clinical Summary ---
Author Organization [facility] [place] [address] Care Team Providers Care Senior Technical Analyst Name Role Phone Suyapa Duarte MD Primary Care Provider Encounters Date Type Department Care Team Description 11/10/2023 Transcribe Orders eD Incoming Referrals [phone] Suyapa Duarte MD Spasticity from Last 3 Months Social History Tobacco Use Types Packs/Day Years Used Date Smoking Tobacco: Never Assessed Sex and Gender Information Value Date Recorded Sex Assigned at Not on file Gender Identity Not on file Sexual Orientation Not on file Plan of Treatment Health Maintenance Due Date Last Done Comments CT Colonography 1970 Colonoscopy 1970 Colorectal Cancer Screening 1970 FIT DNA 1970 FIT 1970 Sigmoidoscopy (10 year) with FIT yearly 1970 Sigmoidoscopy 1970 HIV screen 1988 Hepatitis C Screening 1988 Lipid Screening 1988 Hepatitis B vaccine (0-59 yrs) (1) 1989 Tetanus/Diphtheria/Pertussis Vaccines (1 - Tdap) 08/08 Zoster vaccine (1 of 2) 2020 Covid-19 Vaccine (1 - 24 season) 2023 Influenza (Flu) vaccine (1 o f 1 - Influenza standard series) 11/04/2023 Care Teams Senior Technical Analyst Relationship Specialty Start Date End Date Suyapa Duarte MD [address] [place] [address] PCP - General Family Medicine 11/09/23
--- OUTSIDE RECORDS SUMMARY | 2023-12-21 00:35 | XMS_ITS | Encounter Summary ---
Author Organization [facility] Address [address] [place] [address] Care Team Providers Care Sweet Dough Mixer Name Role Phone Suyapa Duarte MD Primary Care Provider [phone] Encounter Details Date Type Department Care Team (Latest Contact Info) Description 07/20/[address] [facility] Lab - Main [address] [id number] Suyapa Duarte MD [address] [place] [phone] 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HCC-CMS) (HCC); [...] Info) Description 01/23/2024 16:[address] [facility] [address] [place] [address] Scott Esquivel MD [address] [facility] [address] [place] [address] documented as of this encounter Procedures Procedure [...] EDT) Cholesterol 145 <200 mg/dL 07/20/2021 11:20 [facility] Comment:Note that therapeuti c goals will differ between patients based on cardiac risk factors and current medical therapy. HDL 37(L) >=40 mg/dL 07/20/2021 11:20 [facility] Comment:Note that therapeuti c goals will differ between patients based on cardiac risk factors and current medical therapy. LDL, Calculated 55 <160 mg/dL 11:20 [facility] Comment:Note that therapeuti c goals will differ between patients based on cardiac risk factors and current medical therapy. Triglyceride 266(H) <=150 mg/dL 07/20/2021 11:20 [facility] Comment:Note that therapeuti c goals will differ between patients based on cardiac risk factors and current medical therapy. Chol/HDL Ratio 3.9 See Note 07/20/2021 11:20 [facility] Comment: NOTE: Desirable Ratio = <4.1 Patient At Risk Ratio = >5.0(Males) ?>6.0(Females) Non HDL Cholesterol 108 <160 mg/dL 07/20/2021 11:20 [facility] Comment:Note that therapeuti c goals will differ between patients based on cardiac risk factors and current medical therapy. Blood VENOUS BLOOD / Unknown 07/20/2021 10:00 EDT 07/20/2021 10:44 EDT Suyapa Duarte MD CHEMISTRY & BLOOD GA S ORDERABLES Performing Organization Address City/State/[facility] Co de Phone Number [facility] [address] [place] [address] * COMPREHENSIVE METABOLIC PANEL (CMP) (07/20/2021 10:00 EDT) Sodium 136 136 - 145 mmol/L 07/20/2021 11:20 [facility] Potassium 4.3 3.5 - 5.0 mmol/L 07/20/2021 11:20 [facility] Chloride 101 96 - 110 mmol/L 07/20/2021 11:20 [facility] CO2 Total 23 22 - 32 mmol/L 07/20/2021 11:20 [facility] Glucose 99 70 - 100 mg/dL 07/20/2021 11:20 [facility] BUN 15 10 - 26 mg/dL 07/20/2021 11:20 [facility] Creatinine 0.89 0.66 - 1.25 mg/dL 07/20/2021 11:20 [facility] eGFR 104 >60 mL/min/1.7 3m2 07/20/2021 11:20 [facility] Total Protein 7.5 6.3 - 8.2 g/dL 07/20/2021 11:20 [facility] Albumin 4.6 3.4 - 4.9 g/dL 07/20/2021 11:20 [facility] Alkaline Phosphatase 75 38 - 126 U/L 07/20/2021 11:20 EDT [facility] AST 36 15 - 46 U/L 07/20/2021 11:20 EDT [facility] ALT 25 <50 U/L 07/20/2021 11:20 [facility] Bilirubin, Total 0.3 <1.4 mg/dL 07/21/19 11:20 EDT [facility] Calcium 9.8 8.5 - 10.5 mg/dL 07/20/2021 11:20 [facility] Albumin/Globulin Ratio 1.6 1.0 - 2.5 07/20/2021 11:20 T [facility] Anion Gap 12 5 - 14 07/20/2021 11:20 EDT [facility] Blood VENOUS BLOOD / Unknown 07/20/2021 10:00 EDT 07/20/2021 10:44 EDT Suyapa Duarte MD CHEMISTRY & BLOOD GA S ORDERABLES Performing Organization Address [facility] Co de Phone Number [facility] [address] [place] [address] * TSH (07/20/2021 10:00 EDT) [facility] TSH 0.85 0.47 - 4.68 mIU/L 07/20/2021 11:55 EDT [facility] Blood VENOUS BLOOD / Unknown 07/20/2021 10:00 EDT 07/20/2021 10:44 EDT Narrative [facility] - 07/20/2021 11:55 EDT The results of this assay can be falsely lowered due to the consumption of Biotin. Suyapa Duarte MD CHEMISTRY & BLOOD GA S ORDERABLES Performing Organization Address [facility]/ZIP Co de Phone Number [facility] [address] [place] [address] * HEPATITIS C AB W REFLEX TO HCV RNA BY PCR (07/20/2021 10:00 EDT) [facility] Hep C Antibody Negative Negative 07/20/2021 13:08 EDT [facility] Blood VENOUS BLOOD / Unknown 07/20/2021 10:00 EDT 07/20/2021 10:44 EDT Suyapa Duarte MD CHEMISTRY & BLOOD GA S ORDERABLES Performing Organization Address City/[facility]/ZIP Co de Phone Number [facility] [address] [place] [address] * VITAMIN D (25,OH) (07/20/2021 10:00 EDT) 25OH Vitamin D Tot 68 30 - 100 ng/mL 07/20/2021 11:43 EDT [facility] Blood VENOUS BLOOD / Unknown 07/20/2021 10:00 EDT 07/20/2021 10:44 EDT Suyapa Duarte MD CHEMISTRY & BLOOD GA S ORDERABLES Performing Organization Address City/[facility]/ZIP Co de Phone Number [facility] [address] [place] [address] * URIC ACID (07/20/2021 10:00 EDT) Pathologist [facility] Uric Acid 4.8 3.9 - 9.0 mg/dL 07/20/2021 11:20 EDT [facility] Blood VENOUS BLOOD / Unknown 07/20/2021 10:00 EDT 07/20/2021 10:44 EDT Suyapa Duarte MD CHEMISTRY & BLOOD GA S ORDERABLES Performing Organization Address City/[facility]/ZIP Co de Phone Number [facility] [address] [place] [address] * HIV 1/2 ANTIGEN AND ANTIBODY, 4TH GENERATION (07/20/2021 10:00 EDT) Pathologist [facility] HIV 1 and 2 Antibody/p24 Antigen, 4th Generation Negative Negative 07/20/2021 12:00 EDT [facility] Comment:If acute HIV-1 infec tion is suspected in a high risk patient, submit plasma specimen for HIV-1 RNA quantitation test. Blood VENOUS BLOOD / Unknown 07/20/2021 10:00 EDT 07/20/2021 10:44 EDT Suyapa Duarte MD IMMUNOLOGY AND SEROL OGY ORDERABLES Performing Organization Address [facility] de Phone Number [facility] [address] [place] [address] * (ABNORMAL) HEMOGLOBIN A1C (07/20/2021 10:00 EDT) Hemoglobin A1c 6.3(H) <5.7 % 07/20/2021 19:09 EDT [facility] Comment: Glycemic Status References: Normal: ??<5.7% Pre-Diabetes: ??5.7% - 6.4% Diagnostic of Diabetes: ??> or = 6.5% (if confirmed) Est Avg Glucose 134 mg/dL 19:09 EDT [facility] Comment:The eAG represents t he A1c result expressed as average glucose in mg/dL. Blood VENOUS BLOOD / Unknown 07/20/2021 10:00 EDT 07/20/2021 10:44 EDT Suyapa Duarte MD CHEMISTRY & BLOOD GA S ORDERABLES Performing Organization Address [facility] de Phone Number [facility] [address] [place] [address] * (ABNORMAL) COMPLETE BLOOD COUNT AND DIFFERENTIAL (07/20/2021 10:00 EDT) WBC 7.59 4.00 - 10.40 K/cmm 07/20/2021 11:14 EDT [facility] RBC 4.90 4.36 - 5.78 M/cmm 07/20/2021 11:14 EDT [facility] Hemoglobin 14.8 13.8 - 17.3 gm/dL 07/20/2021 11:14 EDT [facility] HCT 44.9 39.5 - 50.2 % 07/20/2021 11:14 [facility] MCV 92 81 - 95 fl 07/20/2021 11:14 [facility] MCH 30.2 27.6 - 33.0 pg 07/20/2021 11:14 [facility] MCHC 33.0 32.8 - 36.4 gm/dL 07/20/2021 11:14 [facility] RDW-CV 14.9(H) <14.2 % 07/20/2021 11:14 [facility] RDW-SD 49.3(H) <46.0 fl 07/20/2021 11:14 [facility] PLT 201 141 - 377 K/cmm 07/20/2021 11:14 [facility] MPV 11.5 9.5 - 12.7 fl 07/20/2021 11:14 [facility] % Neutrophils 57.1 % 07/20/2021 11:14 [facility] % Lymphocytes 32.7 % 07/20/2021 11:14 [facility] % Monocytes 7.6 % 07/20/2021 11:14 [facility] % Eosinophils 1.6 % 07/20/2021 11:14 [facility] % Basophils 0.7 % 07/20/2021 11:14 [facility] % Immature Grans 0.3 % 07/21/19 11:14 [facility] Absolute Neutrophils 4.34 2.20 - 8.85 K/cmm 07/20/2021 11:14 [facility] Absolute Lymphocytes 2.48 1.09 - 3.30 K/cmm 07/20/2021 11:14 [facility] Absolute Monocytes 0.58 0.10 - 0.80 K/cmm 07/20/2021 11:14 [facility] Absolute Eosinophils 0.12 0.03 - 0.61 K/cmm 07/20/2021 11:14 [facility] ABS Basophils 0.05 0.01 - 0.11 K/cmm 07/20/2021 11:14 EDT [facility] Absolute Immature Grans 0.02 0.00 - 0.06 K/cmm 07/20/2021 11:14 EDT [facility] Type of Differential: Auto 07/20/2021 11:14 EDT [facility] Blood VENOUS BLOOD / Unknown 07/20/2021 10:00 EDT 07/20/2021 10:44 EDT Suyapa Duarte MD PACKAGES & DNA PROBE ORDERABLES [facility] [address] [place] [address] documented in this encounter Visit Diagnoses Diagnosis 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
--- OUTSIDE RECORDS SUMMARY | 2023-12-21 00:35 | XMS_ITS | Encounter Summary ---
Author Organization [facility] Address [address] [place] [address] Care Team Providers Care Water Pumper Name Role Phone Suyapa Duarte MD Primary Care Provider [phone] Reason for Visit * Reason Onset Date Comments Appointment Related 10/31/2023 Encounter Details Date Type Department Care Team (Late st Contact Info) Description 10/31/2023 Telephone [facility] Physical Medicine & Rehabilitation - [address] [address] Mauricio Antonio MD [address] [place] [phone] Appointment Related Social History Tobacco Use [...] Telephone Encounter - Yanick Ortiz MA - 11/01/2023 1506 EDT Reached out to Ector Scott's dad, regarding referral to [facility] neurolog[facility] for, hoped for, continuation ofBotox treatments with the team there. Phone number to that clinic provided. Tyler was very appreciative of our help. * Telephone Encounter - Kamini Shields - 10/31/2023 1236 EDT Reason for Call: Appointment Related Summary: Andrew dad phoned to find out if we have a new provider yet, also Janes's dad is very concerned about making sure he gets a 3m appt for his botox as he states if he doesn't get it every 3mo, then he is unable to help w/ transfer. Can an appt be made w/ someone for Janes for his next injection, he would be due about 02/02/24, Would like Margarito to call to discuss. Appointment Offered? No Kamini Shields 10/31/2023 12:37 documented in this encounter Plan of Treatment Upcoming Encounters Date Type Department Care Team (Late st Contact Info) Description 01/23/2024 16:00 EST Office Visit [facility] [address] [place] [address] Scott Esquivel MD 130 [facility] [address] [place] [address] documented as of this encounter Visit Diagnoses Not on filedocumented in this encounter Care Teams Water Pumper Relationship Specialty Start Date End Date Suyapa Duarte MD [address] [place] [phone] PCP - General Family Medicine - Primary Care 03/09/21 documented as of this encounter
--- OUTSIDE RECORDS SUMMARY | 2023-12-21 00:35 | XMS_ITS | Clinical Summary ---
Author Organization [facility] Address [address] [place] [address] Care Team Providers Care Frame Stylist Name Role Phone Suyapa Duarte MD Primary Care Provider [phone] Allergies Active Allergy Reactions Criticality Noted Date [...] by mouth 2 times daily. 07/14/2010 Active Xfhcdgn-Wsiecjopt-Bzc c 333-133-5 mg Tab Take 2 Tabs [...] mouth 2 times daily as needed. Active Active Problems Patient Care Coordination No te Formatting of this note migh t be different from the original. Call father's (Tyler) cellphone at [phone] for all appointment scheduling/questions; Father's address is [address] [place] [phone] Patient has given permission for [facility] to verbally discuss the following information with Desiree Gooden who has the following relationship to the patient: Mother: Scheduling/Appt/Billing/Payment Information (does not include clinical information unless specifically indicated with separate option) Permission remains in effect until the patient elects to revoke it. 2021-Verified NON-ACO [place] Medicaid TCN:[id number] Bronson Viry 04/19/2021 16:31 Problem Noted Date Diagnosed Date 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HCC-CMS) Encounters Date Type Department Care Team Description 12/17/2023 Orders Only [facility] [address] [place] [phone] Cora Hopkins RN Spasticity (Primary Dx) 11/02/2023 Telephone [facility] [address] [place] [phone] Edouard Kaur MD Appointment Related 10/31/2023 Telephone [facility] Physical Medicine & Rehabilitation - [address] [place] [address] Mauricio Antonio MD Appointment Related 10/23/2023 15:15 EDT Procedure visit [facility] Physical Medicine & Rehabilitation [address] [place] [address] Mauricio Antonio MD Spasticity (Primary Dx) from [...] Mass Index - - Plan of Treatment Upcoming Encounters Date Type Department Care Team (Late st Contact Info) Description 01/23/2024 16:00 EST Office Visit [facility] [address] [place] [phone] Scott Esquivel MD [address] [place] [address] [place] [address] Health Maintenance Due Date Last Done Comments Hepatitis B Vaccine (1 of 3 - 19+ 3-dose series) 1989 COVID-19 Vaccine (2023-2 5 season) 2023 01/23/2022, 08/12/2021, 12/31/2020, Additional history exists Hepatitis [...] C Antibody Negative Negative 07/20/2021 13:08 EDT [facility] Blood VENOUS BLOOD / Unknown 07/20/2021 10:00 EDT 07/20/2021 10:44 EDT Suyapa Duarte MD CHEMISTRY & BLOOD GA S ORDERABLES Performing Organization Address City/State/[facility] Co de Phone Number [facility] [address] [place] [address] from Last 3 Months or Most Recently Relevant to Health Maintenance Care Teams Frame Stylist Relationship Specialty Start Date End Date Suyapa Duarte MD [address] [place] [phone] PCP - General Family Medicine - Primary Care 03/09/21
--- OUTSIDE RECORDS SUMMARY | 2023-12-21 00:35 | XMS_ITS | Encounter Summary ---
Author Organization [facility] Address [address] [facility] [place] [address] Care Team Providers Care Antiquer Name Role Phone Suyapa Duarte MD Primary Care Provider [phone] Reason for Referral * Psychiatric (Routine) - Authorized Specialty Diagnoses / Procedures Referred By Conteusebia t Referred To Contact Dermatology Diagnoses Spasticity Mauricio Antonio MD [address] [place] [phone] [facility] Dermatology [address] [place] [address] Referral ID Status Reason Start Date Expiration Date Visits Requested Visits Authorized [id number] Authorized Consult, Test & Treat PCP Updated and/or Approved 10/23/2023 10/22/2024 6 6 Encounter Details Date Type Department Care Team (Late st Contact Info) Description 11/10/2023 Transcribe Orders eDH Incoming Referrals [phone] Suyapa Duarte MD [address] [place], [place] [phone] Spasticity Social History Tobacco Use Types Packs/Day Years Used Date Smoking Tobacco: Never Assessed Sex and Gender Information Value Date Recorded Sex Assigned at Not on file Gender Identity Not on file Sexual Orientation Not on file documented as of this encounter Plan of Treatment Scheduled Referrals Name Type Priority Associated Diagnoses Order Schedule Referral to Adult Psychiatry Outpatient Referral Routine Spasticity Ordered: 11/10/2023 documented as of this encounter Visit Diagnoses Diagnosis Spasticity Abnormal involuntary movements documented in this encounter Care Teams Antiquer Relationship Specialty Start Date End Date Suyapa Duarte MD [address] [place] [address] PCP - General Family Medicine 11/09/23 documented as of this encounter
--- OUTSIDE RECORDS SUMMARY | 2023-12-21 00:35 | XMS_ITS | Encounter Summary ---
Author Organization [facility] Address [address] [place] [address] Care Team Providers Care Assignment Desk Assistant Name Role Phone Suyapa Duarte MD Primary Care Provider [phone] Encounter Details Date Type Department Care Team (Latest Contact Info) Description 11/08/2022 13:51 EDT - 11/08/2022 23:59 EDT Hospital Encounter [facility] Lab - Main [address] [address] [place] Lab Discharge Disposition: Home or Self Care [...] 100 unit injection Inject into the muscle. Wsgbohs-Obhkknbix-Nuze 333-133-5 mg Tab Take 2 Tabs by [...] Info) Description 01/23/2024 16:00 EST Office Visit [facility] [address] [place] [address] Scott Esquivel MD [address] [place] [address] [place] [phone] documented as of this encounter Visit Diagnoses Not on filedocumented in this encounter Care Teams Assignment Desk Assistant Relationship Specialty Start Date End Date Suyapa Duarte MD [address] [place] [phone] PCP - General Family Medicine - Primary Care 03/09/21 documented as of this encounter
--- OUTSIDE RECORDS SUMMARY | 2023-12-21 00:35 | XMS_ITS | Encounter Summary ---
Author Organization [facility] Address [address] [place] [address] Care Team Providers Care Substance Abuse Nurse Name Role Phone Suyapa Duarte MD Primary Care Provider [phone] Encounter Details Date Type Department Care Team (Late st Contact Info) Description 07/30/2021 Orders Only [facility] Physical Medicine & [facility] [place] [address] [place] [address] Cora Foster MD [address] [place] [phone] 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HCC-CMS) ([facility]) (Primary Dx) Social History Tobacco Use [...] Info) Description 01/23/2024 16:00 EST Office Visit [facility] Neurology Clinic [address] [place] [address] Scott Esquivel MD [address] [place] [address] [place] [phone] documented as of this encounter Visit Diagnoses Diagnosis 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HCC-CMS)- Primary Congenital quadriplegia documented in this encounter Care Teams Substance Abuse Nurse Relationship Specialty Start Date End Date Suyapa Duarte MD [address] [place] [phone] PCP - General Family Medicine - Primary Care 03/09/21 documented as of this encounter
--- OUTSIDE RECORDS SUMMARY | 2023-12-21 00:35 | XMS_ITS | Referral Summary ---
Author Organization [facility] Address [address] [place] [address] Care Team Providers Care Assistant Director Of Residence Life Name Role Phone Suyapa Duarte MD Primary Care Provider [phone] Encounters Date Type Department Care Team Description 12/17/2023 Orders Only [facility] Neurology Clinic [address] [place] [address] Cora Hopkins RN Spasticity (Primary Dx) 11/02/2023 Telephone [facility] Neurology Clinic [address] [place], [place] [phone] Edouard aKur MD Appointment Related 10/31/2023 Telephone [facility] Physical Medicine & Rehabilitation [place] [address] [address] [place], [place] [phone] Mauricio Antonio MD Appointment Related 10/23/2023 15:15 EDT Procedure visit [facility] Physical Medicine & Rehabilitation [facility] [place] [address] Mauricio Antonio MD Spasticity (Primary [...] by mouth 2 times daily. 07/14/2010 Active Tgiabrl-Hojewfzto-Cur c 333-133-5 mg Tab Take 2 Tabs [...] the original. Call father's (Tyler) cellphone at [phone] for all appointment scheduling/questions; Father's address is [address] [place] [phone] Patient has given permission for [facility] to verbally discuss the following information with Desiree Gooden who has the following relationship to the patient: Mother: Scheduling/Appt/Billing/Payment Information (does not include clinical information unless specifically indicated with separate option) Permission remains in effect until the patient elects to revoke it. 2021-Verified NON-ACO [place] Medicaid TCN:[id number] rBonson Baires 04/19/2021 16:31 Problem Noted Date Diagnosed [...] making decisions? No 02/10/2016 Plan of Treatment Upcoming Encounters Date Type Department Care Team (Late st Contact Info) Description 01/23/2024 16:00 EST Office Visit [facility] Neurology Clinic [address] [place] [phone] Scott Esquivel MD [address] [place] [address] [place] [phone] Procedures Procedure Name Priority Date/Time Associated Diagnosis [...] C Antibody Negative Negative 07/20/2021 13:08 EDT [facility] Blood VENOUS BLOOD / Unknown 07/20/2021 10:00 EDT 07/20/2021 10:44 EDT Suyapa Duarte MD CHEMISTRY & BLOOD GA S ORDERABLES [facility] [address] [place] [address] from Last 3 Months or Most Recently Relevant to Health Maintenance Care Teams Assistant Director Of Residence Life Relationship Specialty Start Date End Date Suyapa Duarte MD [address] [place] [phone] PCP - General Family Medicine - Primary Care 03/09/21
--- OUTSIDE RECORDS SUMMARY | 2023-12-21 00:35 | XMS_ITS | Encounter Summary ---
Author Organization [facility] Address [address] [place] [address] Care Team Providers Care Film Or Videotape Editor Name Role Phone Suyapa Duarte MD Primary Care Provider [phone] Encounter Details Date Type Department Care Team (Late st Contact Info) Description 11/08/2022 Orders Only [facility] [address] [place] [address] Oliver White MD [address] [place] [phone] Pure hypercholesterolemia; Hypothyroidism, unspecified type; [...] Info) Description 01/23/2024 16:00 EST Office Visit [facility] [address] [place], [place] [phone] Scott Esquivel MD [address] [facility] [address] [place] [address] documented as of this encounter [...] 1.7 - 2.8 mg/dL 11/10/2022 15:30 EDT [facility] Blood VENOUS BLOOD / Unknown Venipuncture / Unknown 11/08/2022 13:52 EDT 11/08/2022 13:52 EDT Oliver White MD CHEMISTRY & BLOOD GA S ORDERABLES Performing Organization Address [facility] Co de Phone Number [facility] [address] [place] [address] * VITAMIN D (25,OH) (11/08/2022 13:52 EDT) 25OH Vitamin D Tot 51 30 - 100 ng/mL 11/13/2022 19:44 EDT [facility] Blood VENOUS BLOOD / Unknown Venipuncture / Unknown 11/08/2022 13:52 EDT 11/08/2022 13:52 EDT Oliver White MD CHEMISTRY & BLOOD GA S ORDERABLES Performing Organization Address [facility] Co de Phone Number [facility] [address] [place] [address] * PSA SCREEN (11/08/2022 13:52 EDT) PSA 2.420 <=3.500 ng/mL 11/13/2022 19:58 EDT [facility] Blood VENOUS BLOOD / Unknown Venipuncture / Unknown 11/08/2022 13:52 EDT 11/08/2022 13:52 EDT Narrative [facility] - 11/13/2022 19:58 EDT NOTE: Serum PSA concentration should not be interpreted as absolute evidence for the presence or absence of malignant disease. Assayed on [email or web address] using chemiluminescent technology.??Values obtained by using different assay methods cannot be used interchangeably. ?? Oliver White MD CHEMISTRY & BLOOD GA S ORDERABLES Performing Organization Address [facility] Co de Phone Number [facility] [address] [place] [address] * VALPROIC ACID LEVEL (11/08/2022 13:52 EDT) Valproic Acid 60 50 - 100 ug/mL 11/08/2022 14:40 EDT [facility] Blood VENOUS BLOOD / Unknown Venipuncture / Unknown 11/08/2022 13:52 EDT 11/08/2022 13:52 EDT Oliver White MD CHEMISTRY & BLOOD GA S ORDERABLES Performing Organization Address City/[facility]/ZIP Co de Phone Number [facility] [address] [place] [address] * TSH (11/08/2022 13:52 EDT) TSH 0.84 0.47 - 4.68 mIU/L 11/08/2022 15:10 EDT [facility] Blood VENOUS BLOOD / Unknown Venipuncture / Unknown 11/08/2022 13:52 EDT 11/08/2022 13:52 EDT Narrative [facility] - 11/08/2022 15:10 EDT The results of this assay can be falsely lowered due to the consumption of Biotin. Oliver White MD CHEMISTRY & BLOOD GA S ORDERABLES Performing Organization Address [facility] Phone Number [facility] [address] [place] [address] * T4 FREE (11/08/2022 13:52 EDT) T4, Free 1.4 0.8 - 2.2 ng/dL 11/08/2022 14:56 EDT [facility] Blood VENOUS BLOOD / Unknown Venipuncture / Unknown 11/08/2022 13:52 EDT 11/08/2022 13:52 EDT Oliver White MD CHEMISTRY & BLOOD GA S ORDERABLES Performing Organization Address City/[facility] Co de Phone Number [facility] [address] [place] [address] * T3 FREE (11/08/2022 13:52 EDT) T3, Free 3.3 2.8 - 5.3 pg/mL 11/08/2022 21:25 EDT [facility] Blood VENOUS BLOOD / Unknown Venipuncture / Unknown 11/08/2022 13:52 EDT 11/08/2022 13:52 EDT Oliver White MD CHEMISTRY & BLOOD GA S ORDERABLES [facility] [address] [place] [address] * (ABNORMAL) LIPID PROFILE (INCLUDES CHOLESTEROL, TRIGLYCERIDES, [...] HDL Cholesterol 91 <160 mg/dL 11/08/2022 14:35 [facility] Comment:Note that therapeuti c goals will differ between patients based on cardiac risk factors and current medical therapy. Blood VENOUS BLOOD / Unknown Venipuncture / Unknown 11/08/2022 13:52 EDT 11/08/2022 13:52 EDT Oliver White MD CHEMISTRY & BLOOD GA S ORDERABLES [facility] [address] [place] [address] * (ABNORMAL) COMPREHENSIVE METABOLIC PANEL (CMP) (11/08/2022 [...] 10.2 8.5 - 10.5 mg/dL 11/08/2022 14:35 EDT [facility] Albumin/Globulin Ratio 1.5 1.0 - 2.5 g/dL 11/08/2022 14:35 EDT [facility] Anion Gap 14 5 - 14 mmol/L 11/08/2022 14:35 EDT [facility] Blood VENOUS BLOOD / Unknown Venipuncture / Unknown 11/08/2022 13:52 EDT 11/08/2022 13:52 EDT Oliver White MD CHEMISTRY & BLOOD GA S ORDERABLES [facility] [address] [place] [address] documented in this encounter Visit Diagnoses Diagnosis Pure hypercholesterolemia Hypothyroidism, unspecified type Generalized-onset seizures (HCC-CMS) Other convulsions Special screening for malignant neoplasm of prostate Vitamin D deficiency Unspecified vitamin D deficiency Hypomagnesemia Disorders of magnesium metabolism documented in this encounter Care Teams Film Or Videotape Editor Relationship Specialty Start Date End Date Suyapa Duarte MD [address] [place] [phone] PCP - General Family Medicine - Primary Care 03/09/21 documented as of this encounter
--- OUTSIDE RECORDS SUMMARY | 2023-12-21 00:35 | XMS_ITS | Encounter Summary ---
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 HDL 45 >=40 mg/dl 05/07/2023 16:55 [facility] Comment:Note that therapeuti c goals will differ between patients based on cardiac risk factors and current medical therapy. LDL, Calculated 53 <160 mg/dL 16:55 [facility] Comment:Note that therapeuti c goals will differ between patients based on cardiac risk factors and current medical therapy. Triglyceride 108 <=150 mg/dL 05/07/2023 16:55 [facility] Comment:Note that therapeuti c goals will differ between patients based on cardiac risk factors and current medical therapy. Chol/HDL Ratio 2.7 See Note 05/07/2023 16:55 [facility] Comment: NOTE: Desirable Ratio = <4.1 Patient At Risk Ratio = >5.0(Males) ?>6.0(Females) Non HDL Cholesterol 75 <160 mg/dL 05/07/2023 16:55 [facility] Comment:Note that therapeuti c goals will differ between patients based on cardiac risk factors and current medical therapy. Blood VENOUS BLOOD / Unknown 05/07/2023 10:45 EST 05/07/2023 16:27 EST Suyapa Duarte MD CHEMISTRY & BLOOD GA S ORDERABLES Performing Organization Address City/State/[facility] Co de Phone Number [facility] [address] [place] [address] * COMPREHENSIVE METABOLIC PANEL (CMP) (05/07/2023 10:45 EST) Sodium 140 136 - 145 mmol/L 05/07/2023 16:55 [facility] Potassium 4.5 3.5 - 5.0 mmol/L 05/07/2023 16:55 [facility] Chloride 103 96 - 110 mmol/L 05/07/2023 16:55 [facility] CO2 Total 28 22 - 32 mmol/L 05/07/2023 16:55 [facility] Glucose 92 70 - 99 mg/dl 05/07/2023 16:55 [facility] BUN 20 10 - 26 mg/dL 05/07/2023 16:55 [facility] Creatinine 0.85 0.66 - 1.25 mg/dL 05/07/2023 16:55 [facility] eGFR 105 >60 mL/min/1.7 3m2 05/07/2023 16:55 [facility] Total Protein 7.0 6.3 - 8.2 g/dL 05/07/2023 16:55 [facility] Albumin 4.3 3.4 - 4.9 g/dL 05/07/2023 16:55 [facility] Alkaline Phosphatase 64 38 - 126 U/L 05/07/2023 16:55 [facility] AST 32 15 - 46 U/L 05/07/2023 16:55 [facility] ALT 34 <50 U/L 05/07/2023 16:55 [facility] Bilirubin, Total 0.5 <1.4 mg/dL 05/07/19 16:55 [facility] Calcium 10.1 8.5 - 10.5 mg/dL 05/07/2023 16:55 [facility] Albumin/Globulin Ratio 1.6 1.0 - 2.5 05/07/2023 16:55 [facility] Anion Gap 9 5 - 14 mmol/L 05/07/2023 16:55 [facility] Blood VENOUS BLOOD / Unknown 05/07/2023 10:45 EST 05/07/2023 16:27 EST Suyapa Duarte MD CHEMISTRY & BLOOD GA S ORDERABLES [facility] [address] [place] [address] * (ABNORMAL) PSA SCREEN (05/07/2023 10:45 EST) PSA 3.720(H) <=3.500 ng/mL 05/07/2023 17:29 [facility] Blood VENOUS BLOOD / Unknown 05/07/2023 10:45 EST 05/07/2023 16:27 EST Narrative [facility] - 05/07/2023 17:29 EST NOTE: Serum PSA concentration should not be interpreted as absolute evidence for the presence or absence of malignant disease. Assayed on [email or web address] using chemiluminescent technology.??Values obtained by using different assay methods cannot be used interchangeably. ?? Suyapa Duarte MD CHEMISTRY & BLOOD GA S ORDERABLES Performing Organization Address [facility]/ZIP Co de Phone Number [facility] [address] [place] [address] * VITAMIN D (25,OH) (05/07/2023 10:45 EST) 25OH Vitamin D Tot 74 30 - 100 ng/mL 05/07/2023 17:21 EST [facility] Blood VENOUS BLOOD / Unknown 05/07/2023 10:45 EST 05/07/2023 16:27 EST Suyapa Duarte MD CHEMISTRY & BLOOD GA S ORDERABLES Performing Organization Address [facility] Co de Phone Number [facility] [address] [place] [address] * (ABNORMAL) COMPLETE BLOOD COUNT AND DIFFERENTIAL (05/07/2023 10:45 EST) [facility] WBC 8.94 4.00 - 10.40 K/cmm 05/07/2023 16:36 [facility] RBC 4.68 4.36 - 5.78 M/cmm 05/07/2023 16:36 [facility] Hemoglobin 14.4 13.8 - 17.3 g/dL 05/07/2023 16:36 [facility] HCT 43.6 39.5 - 50.2 % 05/07/2023 16:36 [facility] MCV 93 81 - 95 fL 05/07/2023 16:36 [facility] MCH 30.8 27.6 - 33.0 pg 05/07/2023 16:36 [facility] MCHC 33.0 32.8 - 36.4 g/dL 05/07/2023 16:36 [facility] RDW-CV 15.4(H) <14.2 % 05/07/2023 16:36 [facility] RDW-SD 52.4(H) <46.0 fl 05/07/2023 16:36 [facility] PLT 163 141 - 377 K/cmm 05/07/2023 16:36 [facility] MPV 12.5 9.5 - 12.7 fL 05/07/2023 16:36 [facility] % Neutrophils 49.4 % 05/07/2023 16:36 [facility] % Lymphocytes 40.5 % 05/07/2023 16:36 [facility] % Monocytes 7.9 % 05/07/2023 16:36 [facility] % Eosinophils 1.3 % 05/07/2023 16:36 [facility] % Basophils 0.7 % 05/07/2023 16:36 [facility] % Immature Grans 0.2 % 05/07/19 16:36 [facility] Absolute Neutrophils 4.41 2.20 - 8.85 K/cmm 05/07/2023 16:36 [facility] Absolute Lymphocytes 3.62(H) 1.09 - 3.30 K/cmm 05/07/2023 16:36 [facility] Absolute Monocytes 0.71 0.10 - 0.80 K/cmm 05/07/2023 16:36 [facility] Absolute Eosinophils 0.12 0.03 - 0.61 K/cmm 05/07/2023 16:36 [facility] ABS Basophils 0.06 0.01 - 0.11 K/cmm 05/07/2023 16:36 [facility] Absolute Immature Grans 0.02 0.00 - 0.06 K/cmm 05/07/2023 16:36 [facility] Type of Differential: Auto 05/07/2023 16:36 [facility] Blood VENOUS BLOOD / Unknown 05/07/2023 10:45 EST 05/07/2023 16:27 EST Suyapa Duarte MD PACKAGES & DNA PROBE ORDERABLES [facility] [address] [place] [address] documented in this encounter Visit Diagnoses Diagnosis 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
--- OUTSIDE RECORDS SUMMARY | 2023-12-21 00:35 | XMS_ITS | Encounter Summary ---
Author Organization [facility] Address [address] [place] [address] Care Team Providers Care Scientific Specialist Name Role Phone Suyapa Duarte MD Primary Care Provider [phone] Encounter Details Date Type Department Care Team (Latest Contact Info) Description 11/10/2022 [facility] [address] [place] [address] Oliver White MD [address] [place] [phone] Hypomagnesemia (Primary Dx); Vitamin D [...] Info) Description 01/23/2024 16:00 EST Office Visit [facility] [address] [place], [place] [phone] Scott Esquivel MD 130 [facility] [address] [place] [address] documented as of this encounter [...] or absence of malignant disease. Assayed on [employer] using chemiluminescent technology.??Values obtained by using different assay methods cannot be used interchangeably. ?? Oliver White MD CHEMISTRY & BLOOD GA S ORDERABLES [facility] [address] [place] [address] * VITAMIN D (25,OH) (11/08/2022 13:52 EDT) 25OH Vitamin D Tot 51 30 - 100 ng/mL 11/13/2022 19:44 EDT [facility] Blood VENOUS BLOOD / Unknown Venipuncture / Unknown 11/08/2022 13:52 EDT 11/08/2022 13:52 EDT Oliver White MD CHEMISTRY & BLOOD GA S ORDERABLES [facility] [address] [place] [address] * MAGNESIUM (11/08/2022 13:52 EDT) Magnesium 2.1 1.7 - 2.8 mg/dL 11/10/2022 15:30 EDT [facility] Blood VENOUS BLOOD / Unknown Venipuncture / Unknown 11/08/2022 13:52 EDT 11/08/2022 13:52 EDT Oliver White MD CHEMISTRY & BLOOD GA S ORDERABLES Performing Organization Address City/State/[facility] Co de Phone Number [facility] [address] [place] [address] documented in this encounter Visit Diagnoses Diagnosis Hypomagnesemia- Primary Disorders of magnesium metabolism Vitamin D deficiency Unspecified vitamin D deficiency Special screening for malignant neoplasm of prostate documented in this encounter Care Teams Scientific Specialist Relationship Specialty Start Date End Date Suyapa Duarte MD [address] [place] [phone] PCP - General Family Medicine - Primary Care 03/09/21 documented as of this encounter
--- OUTSIDE RECORDS SUMMARY | 2023-12-21 00:35 | XMS_ITS | Encounter Summary ---
Author Organization [facility] Address [address] [place] [address] Care Team Providers Care Engineering Aide Name Role Phone Suyapa Duarte MD Primary Care Provider [phone] Reason for Visit * Reason Onset Date Comments Appointment Related 08/23/2021 Encounter Details Date Type Department Care Team (Late st Contact Info) Description 08/23/2021 Telephone [facility] Rehabilitation Therapy [address] [phone] Therapy, Physical Appointment Related Social History Tobacco [...] from the original note were not included. [facility] - [place] [id number] [facility] [address] Person providing information? Bambi Ramírez Guardian: Parents Phone number: cell-parents [phone] 1. Who recommended that you be seen [...] Information: a. Primary Insurance: [employer] Medicare/[facility] AARP-no need to send to [place] b. Secondary Insurance: [place] Medicaid standard plan- REFERRAL REQUIRED. Extension process must be followed for additional visits age 21 up (30 visits/rudy year combined); age 0-21 (8 visits/rudy year perdiscipline) If [facility] Medicare: Have you been seen in therapy since March first of this year? No Are you receiving any home health or VNA services? Yes; By which agency? [facility] - CONTACT HOME HEALTH AGENCY FOR APPROVAL 20. Do you require SSTA for transportation? No NOTES: Janes lives indepently at: [facility], address: [address] [place] [address], [address], [place], [place]. Mom and Dad take care of his scheduling needs. Date of appointment 10/26/21 Location RTC Type of appointment STANDER Therapist Start Time LINSEY @ 1:00 Supplier Start Time GEO @1:00 Length of Appointment 90 MINUTES Additional Notes - Hodan Parker MA 08/23/2021 10:00 Say Pettit, He has [facility] Complete Choice Plus for insurance not traditional Medicare. I have never authorized [facility]. Rosa Elena Penny, PT Bench Mover [facility] [address] [place] [address] [email or web address] TDD: [phone] From: Hodan Parker <[email or web address]> Sent: Sunday, October 24, 2021 2:48 PM To: Rosa Elena Penny PT <[email or web address]> Cc: Elliott Duncan <[email or web address]> Subject: SECURE#APPROVAL REQUEST You don't often get email from [email or web address]. Learn why this is important CAUTION: This email originated from outside of [facility]. Do not click links or open attachments [...] Info) Description 01/23/2024 16:00 EST Office Visit [facility] Neu[facility] Clinic [address] [place] [address] Scott Esquivel MD 130 [facility] [address] [place] [phone] documented as of this encounter Visit Diagnoses Not on filedocumented in this encounter Care Teams Engineering Aide Relationship Specialty Start Date End Date Suyapa Duarte MD [address] [place] [phone] PCP - General Family Medicine - Primary Care 03/09/21 documented as of this encounter
--- OUTSIDE RECORDS SUMMARY | 2023-12-21 00:35 | XMS_ITS | Encounter Summary ---
Author Organization [facility] Address [address] [place] [address] Care Team Providers Care Director Education Name Role Phone Suyapa Duarte MD Primary Care Provider [phone] Reason for Visit * Reason Comments Follow-up Botox Injection * Medication Prior Authorization (See Order Priority) - Order Cancelled Specialty Diagnoses / Procedures Referred By Rubina perkins Referred To Contact Physical Medicine and Rehab Diagnoses 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HCC-CMS) Cora Foster MD [address] [place] [phone] [facility] Med [place] [address] Referral ID Status Reason Start Date Expiration Date Visits Requested Visits Authorized [id number] Order Cancelled Medication Prior Authorization 2 1 1 Encounter Details Date Type Department Care Team (Latest Contact Info) Description 11/03/2021 13:00 EDT Procedure visit [facility] Physical Medicine & Rehabilitation [place] [address] Cora Foster MD [address] [place] [phone] 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HCC-CMS) ([facility]) (Primary Dx); Spasticity Social History Tobacco Use [...] primary daily care providers,Ruiz, and also his outpatient case manager, Ankit. Ankit is here to provide physical [...] Diagnosis ??? 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HCC-CMS) ([facility]) No past medical history on [...] unit injection Inject into the muscle. ??? [id number] [id number] mg Tab Take 2 Tabs by [...] Ambulatory Clinic Admin Med Prior Authorization Request ([id number]) Future Appointments Date Time Provider Department Center 02/02/2022 13:00 Cora Foster MD [facility] None Portions of this document have been prepared with speech recognition software or keyboard bi data modeler techniques. Minor irregularities or keyboarding misprints may [...] Department Center 02/02/2022 13:00 Cora Foster MD [facility] None documented in this encounter Plan of Treatment Upcoming Encounters Date Type Department Care Team (Late st Contact Info) Description 01/23/2024 16:00 EST Office Visit [facility] Neurology Clinic [address] [place] [address] Scott Esquivel MD [address] [place] [address] [place] [address] documented as of this encounter [...] Units documented in this encounter Care Teams Director Education Relationship Specialty Start Date End Date Suyapa Duarte MD [address] [place] [phone] PCP - General Family Medicine - Primary Care 03/09/21 documented as of this encounter
--- OUTSIDE RECORDS SUMMARY | 2023-12-21 00:35 | XMS_ITS | Encounter Summary ---
Author Organization [facility] Address [address] [place] [address] Care Team Providers Care Insulation Engineman Name Role Phone Suyapa Duarte MD Primary Care Provider [phone] Reason for Visit * Reason Onset Date Comments Appointment Related 09/12/2022 Encounter Details Date Type Department Care Team (Late st Contact Info) Description 09/12/2022 Telephone [facility] Physical Medicine & Rehabilitation - [place] [address] Cora Foster MD [address] [place] [phone] Appointment Related Social History Tobacco Use [...] Info) Description 01/23/2024 16:00 EST Office Visit [facility] Neurology Clinic [address] [place] [address] Scott Esquivel MD [address] [facility]- [address] [place] [phone] documented as of this encounter Visit Diagnoses Not on filedocumented in this encounter Care Teams Insulation Engineman Relationship Specialty Start Date End Date Suyapa Duarte MD [address] [place] [phone] PCP - General Family Medicine - Primary Care 03/09/21 documented as of this encounter
--- OUTSIDE RECORDS SUMMARY | 2023-12-21 00:35 | XMS_ITS | Encounter Summary ---
Author Organization [facility] Address [address] [place] [address] Care Team Providers Care Dictionary Editor Name Role Phone Suyapa Duarte MD Primary Care Provider [phone] Reason for Referral * Medication Prior Authorization (Routine/Next Available) - Authorized Specialty Diagnoses / Procedures Referred By Rubina perkins Referred To Contact Physical Medicine and Rehab Diagnoses 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[facility]) Cora Foster MD [address] [place] [phone] [facility] [place] [address] [place] [address] Referral ID Status Reason Start Date Expiration Date Visits Requested Visits Authorized [id number] Authorized Medication Prior Authorization 3 1 1 [...] and Rehab Diagnoses 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[facility]ER[facility]) Cora Foster MD [address] [place] [phone] [facility] Phys Med Rehab [address] [place] [address] Referral ID Status Reason Start Date Expiration Date Visits Requested Visits Authorized [id number] Authorized Medication Prior Authorization 2 04/05/2023 1 1 Encounter Details Date Type Department Care Team (Latest Contact Info) Description 05/24/2022 11:15 EDT Procedure visit [facility] Physical Medicine & [place] [address] Cora Foster MD [address] [place] [phone] 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HCC-CMS) (Primary [...] Diagnosis ??? 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HCC-CMS) ([facility]) No past medical history on file. Past [...] unit injection Inject into the muscle. ??? Sgggwbf-Mgpkkgvfo-Rssb 333-133-5 mg Tab Take 2 Tabs by [...] both of his mom and our medical staff director helping with that transfer. He can partially [...] Name Primary? 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HCC-CMS) ([facility]) Yes Med Orders Placed This Visit and Additions to the Medication List Medications ??? botulinum toxin Type A (BOTOX) injection 300 Units No orders of the defined types were placed in this encounter. Future Appointments Date Time Provider Department Center 08/16/2022 11:15 Cora Foster MD [facility] None Portions of this document have been prepared with speech recognition software or keyboard big data admin techniques. Minor irregularities or keyboarding misprints may [...] Department Center 08/16/2022 11:15 Cora Foster MD [facility] None documented in this encounter Plan of Treatment Upcoming Encounters Date Type Department Care Team (Late st Contact Info) Description 01/23/2024 16:00 EST Office Visit [facility] Neurology Clinic [address] [place] [address] Scott Esquivel MD [address] [place] [address] [address] [place] [address] Scheduled Referrals Name Type Priority Associated Diagnoses Order Schedule AMB CONS/FOLLOW UP CLINIC ADMIN MED PRIOR AUTHORIZATION REQUEST Outpatient Referral Routine/Next Available 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HCC-CMS) ([facility]) Expected: 06/24/2022 (Approximate), Expires: 05/25/2023 documented as [...] Units documented in this encounter Care Teams Dictionary Editor Relationship Specialty Start Date End Date Suyapa Duarte MD [address] [place] [phone] PCP - General Family Medicine - Primary Care 03/09/21 documented as of this encounter
--- OUTSIDE RECORDS SUMMARY | 2023-12-21 00:35 | XMS_ITS | Encounter Summary ---
Author Organization [facility] Address [address] [place] [address] Care Team Providers Care Dado Operator Name Role Phone Suyapa Duarte MD Primary Care Provider [phone] Reason for Referral * Consult (STAT) - Closed Specialty Diagnoses / Procedures Referred By Contac t Referred To Contact Diagnoses Mauricio Tai MD [address] [place] [address] Referral ID Status Reason Start Date Expiration Date V isits Requested Visits Authorized [id number] Closed Specialty Services Required 10/23/2023 1 1 Question Answer Scheduling Comments (optional ? describe specific scheduling needs if applicable): Please call parents, not Janes to schedule appointments Reason for Request: Ongoing Botox. Due in late January 2024. [facility] Phys[facility]ry * Consult (Routine/Next Available) - Authorization Not Required Specialty Diagnoses / Procedures Referred By Contac t Referred To Contact Diagnoses Mauricio Tai MD [address] [place] [address] Scott Esquivel MD [address] [place] [address] [address] [place] [address] Referral ID Status Reason Start Date Expiration Date Visits Requested Visits Authorized [id number] Authorization Not Required Specialty Services Required 4 1 1 Question Answer Scheduling Comments (optional ? describe specific scheduling needs if applicable): Please call parents, not Janes to schedule appointments Reason for Request: Ongoing Botox. Due again in late January 2024 Context of referral: Established Problem Reason for referral: Ongoing care Has patient had a previous OUTSIDE of [facility] neurology evaluation, neuroimaging (MRI or CT of brain or spine) or electrodiagnostic testing (EMG, NCS, EEG)? Unsure Reason for Visit * Reason Comments Follow-up Botox Injection * Medication Prior Authorization (Routine/Next Available) - Authorized Specialty Diagnoses / Procedures Referred By Contac t Referred To Contact Diagnoses Spasticity Mauricio Antonio MD [address] [place] [phone] [facility] [address] [place] [address] [place] [address] Referral ID Status Reason Start Date Expiration Date Visits Requested Visits Authorized [id number] Authorized Medication Prior Authorization 4 1 1 Encounter Details Date Type Department Care Team (Late Contact Info) Description 10/23/2023 15:15 EDT Procedure visit [facility] Physical Medicine & Rehabilitation - [address] [place] [address] Mauricio Antonio MD [address] [place] [phone] Spasticity (Primary Dx) Social History Tobacco [...] 15:15 EDT -Please follow up with your shell molding roller blast operator regarding your left foot pain and medial foot wound (ideallywithin the next 1-2 weeks) -You were referred to [facility] and [facility] for ongoing Botox. Call this clinic back in 1 month at [phone] if you do not hear about scheduling your next Botox with [facility] or [facility]. -Periodically check with our clinic [...] units wasted: 0 Plan: Ongoing Botox through [facility] or [facility]. Patient will follow up with his local shell molding roller blast operator regarding the left medial foot wound and foot pain. This is not a new area of pain for him. He does have a history of impaired glucose tolerance/T2DM and gout. No future appointments. Mauricio Antonio MD documented in this encounter Plan of Treatment Upcoming Encounters Date Type Department Care Team (Late st Contact Info) Description 01/23/2024 16:00 EST Office Visit [facility] Neurology Clinic [address] [place] [address] Scott Esquivel MD [address] [place] [address] [place] [address] Scheduled Referrals Name Type Priority [...] Units, intramuscular, NOW X1, 1 dose, On Sun10/23/23 at 0000, Routine Given 10/23/2023 15:54 EDT 300 Units documented in this encounter Orders Medications Ordered That José Miguel ht Not Have Been Administered Count Last Ordered Date First Ordered Date botulinum toxin Type A (BOTO X) injection 300 Units 1 10/12/2023 documented in this encounter Care Teams Dado Operator Relationship Specialty Start Date End Date Suyapa Duarte MD [address] [place] [phone] PCP - General Family Medicine - Primary Care 03/09/21 documented as of this encounter
--- OUTSIDE RECORDS SUMMARY | 2023-12-21 00:35 | XMS_ITS | Encounter Summary ---
Author Organization [facility] Address [address] [place] [address] Care Team Providers Care Overnight Associate Name Role Phone Suyapa Duarte MD Primary Care Provider [phone] Reason for Visit * Reason Onset Date Comments Appointment Related 11/02/2023 Encounter Details Date Type Department Care Team (Late st Contact Info) Description 11/02/2023 Telephone [facility] Neurology Clinic [address] [place] [address] Edouard Kaur MD [address] [facility] [address] [place] [address] Appointment Related Social History Tobacco Use Types [...] Miscellaneous Notes * Telephone Encounter - Cora Hopkins RN - 11/06/2023 0823 EDT Noted that referral has been placed. Will allow this to run through the process to be scheduled. Passing to Darya for scheduling. * Telephone Encounter - Miguel Elder - 11/02/2023 1141 EDT David ( Janes's father ) is calling to schedule a visit in as the provider in [place] that they see is moving. No Referral as of today on file. Will be due on 01/23/24 according to the message as Janes has them every three months. I called and spoke with David to let me know that our referral requirement. He stated one should have been sent yesterday. He understands our workflow and we will do our best to get in him in time. Was seeing Dr. Antonio. documented in this encounter Plan of Treatment Upcoming Encounters Date Type Department Care Team (Late st Contact Info) Description 01/23/2024 16:00 EST Office Visit [facility] Neurology Clinic [address] [place] [address] Scott Esquivel MD [address] [facility] [address] [place] [phone] documented as of this encounter Visit Diagnoses Not on filedocumented in this encounter Care Teams Overnight Associate Relationship Specialty Start Date End Date Suyapa Duarte MD [address] [place] [phone] PCP - General Family Medicine - Primary Care 03/09/21 documented as of this encounter
--- OUTSIDE RECORDS SUMMARY | 2023-12-21 00:35 | XMS_ITS | Encounter Summary ---
Author Organization [facility] Address [address] [place] [address] Care Team Providers Care Service Transformer Repair Supervisor Name Role Phone Suyapa Duarte MD Primary Care Provider [phone] Reason for Referral * Medication Prior Authorization (Routine/Next Available) - Authorized Specialty Diagnoses / Procedures Referred By Rubina perkins Referred To Contact Physical Medicine and Rehab Diagnoses 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HCC-CMS) Cora Foster MD [address] [place] [phone] [facility] Phys [place] [address] [place] [address] Referral ID Status Reason Start Date Expiration Date Visits Requested Visits Authorized [id number] Authorized Medication Prior Authorization 2 04/05/2023 1 [...] and Rehab Diagnoses Spasticity Cora Foster MD [address] [place] [phone] [facility] Phys Med Rehab [address] [place] [address] Referral ID Status Reason Start Date Expiration Date Visits Requested Visits Authorized [id number] Order Cancelled Medication Prior Authorization 11/03/2021 1 1 Encounter Details Date Type Department Care Team (Latest Contact Info) Description 02/02/2022 13:00 EST Procedure visit [facility] Physical Medicine & Rehabilitation - [address] [place] [address] Cora Foster MD [address] [place] [phone] 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HCC-CMS) [...] Diagnosis ??? 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HCC-CMS) ([facility]) No past medical history [...] unit injection Inject into the muscle. ??? Hihuddf-Sclkteoys-Yvbu 333-133-5 mg Tab Take 2 Tabs by [...] Name Primary? 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HCC-CMS) ([facility]) Yes Med Orders Placed This Visit and Additions to the Medication List Medications ??? botulinum toxin Type A (BOTOX) injection 300 Units Other Orders Placed This Visit Procedures ??? Ambulatory Clinic Admin Med Prior Authorization Request ([id number]) Future Appointments Date Time Provider Department Center 04/27/2022 13:45 Cora Foster MD [facility] None Portions of this document have been prepared with speech recognition software or keyboard databases computer consultant techniques. Minor irregularities or keyboarding misprints [...] Department Center 04/27/2022 13:45 Cora Foster MD [facility] None documented in this encounter Plan of Treatment Upcoming Encounters Date Type Department Care Team (Late st Contact Info) Description 01/23/2024 16:00 EST Office Visit [facility] Neurology Clinic [address] [place] [address] Scott Esquivel MD [address] [facility] [address] [place] [address] Scheduled Referrals Name Type Priority Associated Diagnoses Order Schedule AMB CONS/FOLLOW UP CLINIC ADMIN MED PRIOR AUTHORIZATION REQUEST Outpatient Referral Routine/Next Available 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HCC-CMS) ([facility]) Expected: 02/09/2022 (Approximate), Expires: 02/02/2023 [...] Units documented in this encounter Care Teams Service Transformer Repair Supervisor Relationship Specialty Start Date End Date Suyapa Duarte MD [address] [place] [phone] PCP - General Family Medicine - Primary Care 03/09/21 documented as of this encounter
--- OUTSIDE RECORDS SUMMARY | 2023-12-21 00:35 | XMS_ITS | Encounter Summary ---
Author Organization [facility] Address [address] [place] [address] Care Team Providers Care Computing Consultant Name Role Phone Suyapa Duarte MD Primary Care Provider [phone] Reason for Visit * Reason Comments Follow-up Botox Injection * Medication Prior Authorization (See Order Priority) - Order Cancelled Specialty Diagnoses / Procedures Referred By Rubina perkins Referred To Contact Physical Medicine and Rehab Diagnoses 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HCC-CMS) Cora Foster MD [address] [place] [phone] [facility] Phys Med [place] [address] [place] [address] Referral ID Status Reason Start Date Expiration Date Visits Requested Visits Authorized [id number] Order Cancelled Medication Prior Authorization 01/22/20 21 1 1 Encounter Details Date Type Department Care Team (Latest Contact Info) Description 04/15/2021 14:30 EST Procedure visit [facility] Physical Medicine & [place] [address] Cora Foster MD [address] [place] [phone] 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HCC-CMS) ([facility]) (Primary Dx) Social History Tobacco Use Types [...] referred to the outpatient PT department at [facility] 03/09/2021 he was brought to [facility] because of a fall in his [...] mom residing at Janes's apartment in the [facility] area where he gets his [...] 25/09. They have been looking at different [facility] facilities for placement. They thought he was going to get a placement at [facility] but they were informed of the last minute that his level of care was more than that facility could provide. He had been set up for an evaluation at [facility] that we had ordered but then canceled [...] Diagnosis ??? 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HCC-CMS) ([facility]) No past medical history on file. Past [...] unit injection Inject into the muscle. ??? Qtjpaar-Cgapzfkkt-Xopx 333-133-5 mg Tab Take 2 Tabs by [...] next planned injection. He is scheduled at [facility] for a PT evaluation in order to look at additional assistive devicesquestion of standing frame or other transfer assist devices and strategies. Repeat assessment for potential repeat injections in 3 months. Plan: Encounter Diagnoses Name Primary? 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HCC-CMS) ([facility]) Yes Med Orders Placed This Visit and Additions to the Medication List Medications ??? botulinum toxin Type A (BOTOX) injection 300 Units No orders of the defined types were placed in this encounter. Future Appointments Date Time Provider Department Center 04/15/2021 14:30 [facility] 04/28/2021 10:30 Neela Carmona, PT [facility] None 05/19/2021 12:00 Neela Carmona, PT [facility] None 05/26/2021 12:00 Neela Carmona, PT [facility] None 07/08/2021 15:15 Cora Foster MD [facility] None Portions of this document have been prepared with speech recognition software or keyboard electronic data interchange specialist techniques. Minor irregularities or keyboarding misprints may [...] injection. Still to meet with PT at [facility] to look at transfers, assistive devices and alternate strategies. Future Appointments Date Time Provider Department Center 04/28/2021 10:30 Neela Carmona, PT [facility] None 05/19/2021 12:00 Neela Carmona, PT [facility] None 05/26/2021 12:00 Neela Carmona, PT [facility] None 07/08/2021 15:15 Cora oFster MD [facility] None documented in this encounter Plan of Treatment Upcoming Encounters Date Type Department Care Team (Late st Contact Info) Description 01/23/2024 16:00 EST Office Visit [facility] Neurology Clinic [address] [place] [address] Scott Esquivel MD [address] [place] [address] [address] [place] [phone] documented as of this encounter [...] Units documented in this encounter Care Teams Computing Consultant Relationship Specialty Start Date End Date Suyapa Duarte MD [address] [place] [phone] PCP - General Family Medicine - Primary Care 03/09/21 documented as of this encounter
--- OUTSIDE RECORDS SUMMARY | 2023-12-21 00:35 | XMS_ITS | Encounter Summary ---
Author Organization [facility] Address [address] [place] [address] Care Team Providers Care Arranger Assembler Name Role Phone Suyapa Duarte MD Primary Care Provider [phone] Reason for Visit * Reason Onset Date Comments Appointment Related 10/11/2021 Encounter Details Date Type Department Care Team (Late st Contact Info) Description 10/11/2021 Telephone [facility] Physical Medicine & Rehabilitation [place] [address] [place] [address] Cora Foster MD [address] [place] [phone] Appointment Related Social History Tobacco Use [...] Info) Description 01/23/2024 16:00 EST Office Visit [facility] Neu[facility] Clinic [address] [place] [address] Scott Esquivel MD [address] [facility] [address] [place] [phone] documented as of this encounter Visit Diagnoses Not on filedocumented in this encounter Care Teams Arranger Assembler Relationship Specialty Start Date End Date Suyapa Duarte MD [address] [place] [phone] PCP - General Family Medicine - Primary Care 03/09/21 documented as of this encounter
--- OUTSIDE RECORDS SUMMARY | 2023-12-21 00:35 | XMS_ITS | Encounter Summary ---
Author Organization [facility] Address [address] [place] [address] Care Team Providers Care Shift Superintendent Caustic Cresylate Name Role Phone Suyapa Duarte MD Primary Care Provider [phone] Encounter Details Date Type Department Care Team (Latest Contact Info) Description 04/29/2021 Plan of Care Documentation [facility] Rehabilitation Therapy [address] [phone] Social History Tobacco Use Types Packs/Day Years [...] Info) Description 01/23/2024 16:00 EST Office Visit [facility] Neurology Clinic [address] [place] [address] Scott Esquivel MD 130 [facility] [address] [place] [phone] documented as of this encounter Visit Diagnoses Not on filedocumented in this encounter Care Teams Shift Superintendent Caustic Cresylate Relationship Specialty Start Date End Date Suyapa Duarte MD [address] [place] [phone] PCP - General Family Medicine - Primary Care 03/09/21 documented as of this encounter
--- OUTSIDE RECORDS SUMMARY | 2023-12-21 00:35 | XMS_ITS | Encounter Summary ---
Author Organization [facility] Address [address] [place] [address] Care Team Providers Care Plug Shaper Hand Name Role Phone Suyapa Duarte MD Primary Care Provider [phone] Reason for Visit * Reason Onset Date Comments Appointment Related 04/26/2022 Encounter Details Date Type Department Care Team (Late st Contact Info) Description 04/26/2022 Telephone [facility] Physical Medicine & [place] [address] [place] [address] Cora Foster MD [address] [place] [phone] Appointment Related Social History Tobacco Use [...] Info) Description 01/23/2024 16:00 EST Office Visit [facility] Neurology Clinic [address] [place], [place] [phone] Scott Esquivel MD 130 [facility] [address] [place] [phone] documented as of this encounter Visit Diagnoses Not on filedocumented in this encounter Care Teams Plug Shaper Hand Relationship Specialty Start Date End Date Suyapa Duarte MD [address] [place] [phone] PCP - General Family Medicine - Primary Care 03/09/21 documented as of this encounter
--- OUTSIDE RECORDS SUMMARY | 2023-12-21 00:35 | XMS_ITS | Encounter Summary ---
Author Organization [facility] Address [address] [place] [address] Care Team Providers Care Automat Watcher Name Role Phone Suyapa Duarte MD Primary Care Provider [phone] Reason for Referral * Medication Prior Authorization (Routine/Next Available) - Authorized Specialty Diagnoses / Procedures Referred By Rubina perkins Referred To Contact Diagnoses Spasticity Mauricio Sheffield MD [address] [place] [phone] [facility] [address] [place] [id number] Referral ID Status Reason Start Date Expiration Date Visits Requested Visits Authorized [id number] Authorized Medication Prior Authorization 04/10/2023 1 1 [...] and Rehab Diagnoses Spasticity Mauricio Sheffield MD [address] [place] [phone] [facility] [address] [place] [address] Referral ID Status Reason Start Date Expiration Date Visits Requested Visits Authorized [id number] Authorization Not Required Medication Prior Authorization 01/10/20 23 1 1 Encounter Details Date Type Department Care Team (Late st Contact Info) Description 04/10/2023 13:00 EST Procedure visit [facility] Physical Medicine & Rehabilitation - [address] [place] [address] Mauricio Sheffield MD [address] [place] [phone] Spasticity (Primary Dx); Spastic quadriplegic cerebral [...] Problem List Diagnosis 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[facility]) History reviewed. No pertinent past medical history. [...] 100 unit injection Inject into the muscle. Dnygece-Wrapoepmh-Gqao 333-133-5 mg Tab Take 2 Tabs by [...] Primary? Spasticity Yes 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[facility]) Med Orders Placed This Visit and Additions to the Medication List Medications botulinum toxin Type A (BOTOX) injection 300 Units Other Orders Placed This Visit Procedures Ambulatory Clinic Admin Med Prior Authorization Request ([id number]) Future Appointments Date Time Provider Department Center 07/10/2023 13:30 Mauricio Sheffield MD [facility] None Portions of this document have been prepared with speech recognition software or keyboard senior data modeler techniques. Minor irregularities or keyboarding [...] Info) Description 01/23/2024 16:00 EST Office Visit [facility] Neurology Clinic [address] [place] [address] Scott Esquivel MD [address] [facility] [address] [address] [place] [address] Scheduled Referrals Name Type Priority [...] Units documented in this encounter Care Teams Automat Watcher Relationship Specialty Start Date End Date Suyapa Duarte MD [address] [place] [phone] PCP - General Family Medicine - Primary Care 03/09/21 documented as of this encounter
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
--- OUTSIDE RECORDS SUMMARY | 2023-12-21 00:36 | XMS_ITS | Encounter Summary ---
Author Organization [facility] Address [address] [place] [address] Care Team Providers Care Cartography/Mapping Technician Name Role Phone Lucy Elizabeth MD Primary Care Provider [phone] Encounter Details Date Type Department Care Team (Late st Contact Info) Description 06/03/2020 Results Only [facility] - [facility] - Main [address] [address] Lucy Elizabeth MD [address] [place] [phone] Social History Tobacco Use Types Packs/Day [...] Info) Description 01/23/2024 16:00 EST Office Visit [facility] Neu[facility] Clinic [address] [place] [address] Scott Esquivel MD 130 [facility] [address] [place] [address] documented as of this encounter Procedures Procedure Name Priority Date/Time Associated Diagnosis Comments URINALYSIS/COMPLETE - [facility] Routine 06/03/2020 15:00 EDT URINE CULTURE IF POSITIVE Routine 06/03/2020 15:00 EDT documented in this encounter Results * URINE CULTURE IF POSITIVE (06/03/2020 15:00 EDT) ESCHERIACHIA COLI - [facility] ESCHERICHIA COLI 06/05/2020 7:36 EDT [facility] COLONY COUNT 10,000-100,000 CFU/ML 06/06/19 7:36 EDT [facility] USUAL UROGENITAL ELENA - [facility] UUV 06/05/2020 7:36 EDT [facility] COLONY COUNT <10,000 CFU/ML 06/05/2020 7:36 EDT [facility] Urine specimen (specimen) 06/03/2020 15:00 EDT 06/03/2020 15:30 EDT Comment:VOID Narrative [facility] - 06/05/2020 7:36 EDT FAX TO [id number] Organism Antibiotic Method Susceptibility Escherichia coli Ampicillin [...] Escherichia coli Tobramycin GRAM NEGATIVE SUSCEPTIBILITY - [facility] <=1: Susceptible Comment:[id number] Lucy Elizabeth MD MICROBIOLOGY - GENER AL ORDERABLES [facility] [address] [place] [address] * URINALYSIS/COMPLETE - [facility] (06/03/2020 15:00 EDT) URINE APPEARANCE - [facility] Cloudy CLEAR [facility] FEW [facility]/03[facility]2020 [facility] BILIRUBIN - DIPSTICK - [facility] Negative NEGATIVE 06/03/2020 15:45 [facility] URINE BLOOD - [facility] Trace NEG 06/03/2020 15:45 [facility] URINE COLOR - [facility] Yellow YELLOW 06/03/2020 15:45 [facility] URINE GLUCOSE - DIPSTICK - [facility] Negative NEGATIVE 06/03/2020 15:45 [facility] URINE KETONE - [facility] Trace NEGATIVE 06/03/2020 15:45 [facility] URINE LEUK ESTERASE - [facility] 2+ NEG 06/03/2020 15:45 [facility] URINE NITRITE - DIPSTICK - [facility] Negative NEG 06/03/2020 15:45 [facility] URINE PH - [facility] 8.0 4.0 - 8.0 15:45 [facility] URINE PROTEIN - DIPSTICK - [facility] Negative NEG 06/03/2020 15:45 [facility] URINE RBC - [facility] RARE rbc/hpf 04/01/20 21 15:45 EDT [facility] URCULTIF+? - [facility] Culture Ordered 06/03/2020 15:45 EDT [facility] URINE SPECIFIC GRAVITY - [facility] 1.015 1.001 - 1.035 06/03/2020 15:45 EDT [facility] URINE SQUAMOUS CELLS - [facility] NEG NEG #/hpf 06/03/2020 15:45 EDT [facility] URINE UROBILINOGEN - DIPSTICK - [facility] 0.2 0.2 - 1.0 06/03/2020 15:45 EDT [facility] URINE WBC - [facility] TNTC NEG wbc/hpf 021 15:45 EDT [facility] 06/03/2020 15:0 0 EDT 06/03/2020 15:30 EDT Narrative [facility] - 06/03/2020 15:45 EDT FAX TO [id number] Lucy Elizabeth MD CHEMISTRY & BLOOD GA S ORDERABLES [facility] [address] [place] [address] documented in this encounter Visit Diagnoses Not on filedocumented in this encounter Care Teams Cartography/Mapping Technician Relationship Specialty Start Date End Date Lucy Elizabeth MD [address] [place] [phone] PCP - General 09/28/08 03/08/21 documented as of this encounter
--- OUTSIDE RECORDS SUMMARY | 2023-12-21 00:36 | XMS_ITS | Encounter Summary ---
Author Organization [facility] Address [address] [place] [address] Care Team Providers Care Traffic Operations Engineer Name Role Phone Lucy Elizabeth MD Primary Care Provider [phone] Encounter Details Date Type Department Care Team (Latest Contact Info) Description 02/03/2020 15:30 EST Ancillary Procedure [facility] Physical Medicine & Rehabilitation - [address] [place], [place] [phone] Spasticity Social History Tobacco Use Types Packs/Day [...] Office Visit [facility] Neurology Clinic [address] [place], [place] [address] Scott Esquivel MD [address] [facility] [address] [place] [phone] Pending Results Name Type Priority Associated Diagnoses Date /Time POC US PHYSIATRY GUIDED BOTOX TREATMENT Imaging Routine Spasticity 02/03/2020 15:31 EST documented as of this encounter Visit Diagnoses Diagnosis Spasticity Abnormal involuntary movements documented in this encounter Care Teams Traffic Operations Engineer Relationship Specialty Start Date End Date Lucy Elizabeth MD [address] [place] [phone] PCP - General 09/28/08 03/08/21 documented as of this encounter
--- OUTSIDE RECORDS SUMMARY | 2023-12-21 00:36 | XMS_ITS | Encounter Summary ---
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[facility]) Cora Foster MD [address] [place] [phone] [facility] Phys Med Rehab [address] [place] [address] [place] [address] Referral ID Status Reason Start Date Expiration Date Visits Requested Visits Authorized [id number] Specialty Report Received Medication Prior Authorization 1 [...] and Rehab Diagnoses 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[facility]) Cora Foster MD [address] [place] [phone] [facility] Phys Med Rehab [address] [place] [address] Referral ID Status Reason Start Date Expiration Date Visits Requested Visits Authorized [id number] Specialty Report Received Medication Prior Authorization 1 1 1 Encounter Details Date Type Department Care Team (Latest Contact Info) Description 10/26/2020 13:00 EDT Procedure visit [facility] Physical Medicine & Rehabilitation [place] [address] Cora Foster MD [address] [place] [address] 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HCC-CMS) [...] List Diagnosis ??? 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 [...] Gatherings with Friends and Family: ??? Attends Synagogue Services: ??? Active Member of Clubs or [...] unit injection Inject into the muscle. ??? Ctolnrx-Wbcmqtzry-Eqak 333-133-5 mg Tab Take 2 Tabs by [...] Department Center 01/21/2021 13:00 [facility] Foster [facility] None Portions of this document have been prepared with speech recognition software or keyboard database architect techniques. Minor irregularities or keyboarding misprints [...] 01/23/2024 16:[address] [facility] Neurology Clinic [address] [place] [address] Scott Esquivel MD [address] [place] [address]-[address] [place] [phone] Scheduled Referrals Name Type Priority Associated Diagnoses [...] Units documented in this encounter Care Teams Scalloper Relationship Specialty Start Date End Date Lucy Elizabeth MD [address] [place] [phone] PCP - General 09/28/08 03/08/21 documented as of this encounter
--- OUTSIDE RECORDS SUMMARY | 2023-12-21 00:36 | XMS_ITS | Encounter Summary ---
Author Organization [facility] Address [address] [place] [address] Care Team Providers Care Collar Setter Name Role Phone Suyapa Duarte MD Primary Care Provider [phone] Reason for Visit * Reason Onset Date Comments Appointment Related 03/31/2021 Encounter Details Date Type Department Care Team (Late st Contact Info) Description 03/31/2021 Telephone [facility] Rehabilitation Therapy [address] [phone] Therapy, Outpatient, Appointment Related Social History Tobacco [...] - Estefani Rivas - 03/31/2021 1629 EST [facility] REHABILITATION THERAPY - [address] [address] Telephone Intake Information for Scheduling NEW Patients for Therapy Script/referral: In EPIC Referral date: 02/17/21 Referring Provider: Cora Foster MD Diagnosis: Spastic quadriplegic cerebral palsy -Eval and treat for decline in function and safety with transfers Window Display Designer needed? No Primary Insurance: [employer] Medicare/[employer] [place] need to send to [place] Secondary Insurance: [place] plan- REFERRAL REQUIRED. If [employer] Medicare: Have you been seen in therapy since March of this year? Yes;By whom? Home Health; How many visits have you had since March of this year? Patient's mother was unaware Are you receiving any home health or VNA services? Yes; By which agency? [facility] - CONTACT HOME HEALTH AGENCY FOR APPROVAL Notes: E-mail sent to Rosa Elena Davis @ [facility] on 03/31/21 @ 16:26 Estefani Prim 03/31/2021 documented in this encounter Plan of Treatment Upcoming Encounters Date Type Department Care Team (Late st Contact Info) Description 01/23/2024 16:00 EST Office Visit [facility] Neu[facility] [address] [place] [address] Scott Esquivel MD 130 [facility] [address] [place] [phone] documented as of this encounter Visit Diagnoses Not on filedocumented in this encounter Care Teams Collar Setter Relationship Specialty Start Date End Date Suyapa Duarte MD [address] [place] [phone] PCP - General Family Medicine - Primary Care 03/09/21 documented as of this encounter
--- OUTSIDE RECORDS SUMMARY | 2023-12-21 00:36 | XMS_ITS | Encounter Summary ---
Author Organization [facility] Address [address] [place] [address] Care Team Providers Care Wood Mill Supervisor Name Role Phone Lucy Elizabeth MD Primary Care Provider Reason for Visit * Reason Onset Date Comments Other 01/03/2019 Encounter Details Date Type Department Care Team (Late st Contact Info) Description 01/03/2019 Telephone [facility] Rehabilitation Therapy - [facility] [address] [place], [place] [phone] Zev Flores, PT [address] [place] [phone] Other Social History Tobacco Use [...] Info) Description 01/23/2024 16:00 EST Office Visit [facility] Neurology Clinic [address] [place] [address] Scott Esquivel MD 130 [facility] [address] [place] [phone] documented as of this encounter Visit Diagnoses Not on filedocumented in this encounter Care Teams Wood Mill Supervisor Relationship Specialty Start Date End Date Lucy Elizabeth MD [address] [place] [phone] PCP - General 09/28/08 03/08/21 documented as of this encounter
--- OUTSIDE RECORDS SUMMARY | 2023-12-21 00:36 | XMS_ITS | Encounter Summary ---
Author Organization [facility] Address [address] [place] [address] Care Team Providers Care Outreach And Education Social Worker Name Role Phone Lucy Elizabeth MD Primary Care Provider [phone] Encounter Details Date Type Department Care Team (Late st Contact Info) Description 01/25/2021 Results Only [facility] [phone] Suyapa Duarte MD [address] [place] [phone] Social History Tobacco Use Types Packs/Day [...] Description 01/23/2024 16:00 EST Office Visit [facility] Neurology Clinic [address] [place], [place] [address] Scott Esquivel MD [address] [facility] [address] [place] [phone] documented as of this encounter Procedures Procedure Name Priority Date/Time Associated Diagnosis Comments MAGNESIUM Routine 01/25/2021 15:24 EST documented in this encounter Results * MAGNESIUM (01/25/2021 15:24 EST) Magnesium 1.90 1.60 - 2.30 mg/dL [facility] 01/25/2021 15:2 4 EST Suyapa Duarte MD CHEMISTRY & BLOOD GA S ORDERABLES [facility] [address] [place] [address] documented in this encounter Visit Diagnoses Not on filedocumented in this encounter Care Teams Outreach And Education Social Worker Relationship Specialty Start Date End Date Lucy Elizabeth MD [address] [place] [phone] PCP - General 09/28/08 03/08/21 documented as of this encounter
--- OUTSIDE RECORDS SUMMARY | 2023-12-21 00:36 | XMS_ITS | Encounter Summary ---
Author Organization [facility] Address [address] [place] [address] Care Team Providers Care Services Program Manager Name Role Phone Lucy Elizabeth MD Primary Care Provider [phone] Encounter Details Date Type Department Care Team (Late st Contact Info) Description 03/25/2019 Documentation Visit [facility] Rehabilitation [address] [address] Zev Flores, PT [address] [place] [phone] Social History Tobacco Use Types [...] - 03/25/2019 0813 EST Assessment REHABILITATION THERAPIES [facility] [address] [place] [address] Physical Therapy Addendum Note To Wheelchair Prescription [...] has been faxed to DOMINIQUE Hutchison of [facility] . documented in this encounter Plan of Treatment Upcoming Encounters Date Type Department Care Team (Late st Contact Info) Description 01/23/2024 16:00 EST Office Visit [facility] Neurology Clinic [address] [place] [address] Scott Esquivel MD 130 [facility] [address] [place] [phone] documented as of this encounter Visit Diagnoses Not on filedocumented in this encounter Care Teams Services Program Manager Relationship Specialty Start Date End Date Lucy Elizabeth MD [address] [place] [phone] PCP - General 09/28/08 03/08/21 documented as of this encounter
--- OUTSIDE RECORDS SUMMARY | 2023-12-21 00:36 | XMS_ITS | Encounter Summary ---
Author Organization [facility] Address [address] [place] [address] Care Team Providers Care Styrene Dehydration Reactor Operator Name Role Phone Lucy Elizabeth MD Primary Care Provider [phone] Encounter Details Date Type Department Care Team (Late st Contact Info) Description 03/19/2020 Results Only [facility] - [facility] - Main [address] [address] Lucy Elizabeth MD [address] [place] [phone] Social History Tobacco Use Types Packs/Day [...] Info) Description 01/23/2024 16:00 EST Office Visit [facility] Neurology Clinic [address] [place] [address] Scott Esquivel MD [address] [facility] [address] [place] [address] documented as of this encounter [...] 4.0 - 6.0 % 03/19/2020 19:49 EST [facility] Comment: > or =18 years: [...] Est Avg Glucose 137 mg/dL 19:49 EST [facility] 03/19/2020 9:45 EST 03/19/2020 15:10 EST Lucy Elizabeth MD CHEMISTRY & BLOOD GA S ORDERABLES Performing Organization Address [facility]/ZIP Co de Phone Number [facility] [address] [place] [address] * TSH (03/19/2020 9:45 EST) [facility] THYROID STIM HORMONE [facility] 1.62 0.46 - 4.68 uIU/ml 03/19/2020 16:24 EST [facility] Comment: The results of this assay can be falsely lowered due to the consumption of Biotin. 03/19/2020 9:45 EST 03/19/2020 15:10 EST Lucy Elizabeth MD CHEMISTRY & BLOOD GA S ORDERABLES Performing Organization Address [facility] Co de Phone Number [facility] [address] [place] [address] * URIC ACID (03/19/2020 9:45 EST) [facility] URIC ACID [facility] 5.2 3.9 - 9.0 mg/dL 03/19/2020 15:55 EST [facility] 03/19/2020 9:45 EST 03/19/2020 15:10 EST Lucy Elizabeth MD CHEMISTRY & BLOOD GA S ORDERABLES Performing Organization Address City/[facility]/ZIP Co de Phone Number [facility] [address] [place] [address] * MAGNESIUM (03/19/2020 9:45 EST) [facility] Magnesium 1.80 1.7 - 2.8 mg/dL 03/19/2020 15:55 EST [facility] 03/19/2020 9:45 EST 03/19/2020 15:10 EST Lucy Elizabeth MD CHEMISTRY & BLOOD GA S ORDERABLES Performing Organization Address City/[facility]/ZIP Co de Phone Number [facility] [address] [place] [address] * (ABNORMAL) LIPID PROFILE (INCLUDES CHOLESTEROL, TRIGLYCERIDES, HDL, LDL) (03/19/2020 9:45 EST) Triglyceride 288 <150 mg/dL 03/19/2020 15:55 [facility] Comment: Adult: Normal: ?<150 mg/dl ? Borderline High: 150-199 mg/dl ? High: ?200-499 mg/dl ? Very High: >nj=372 Cholesterol 152 <200 mg/dL 03/19/2020 15:55 [facility] Comment: Acceptable: ??<200 Borderline: ??200-239 High: ?> or = 240 Chol/HDL Ratio 4.1 0 - 5.0 03/19/2020 15:55 [facility] Comment: DESIRABLE RATIO IS LESS THAN 4.1 PATIENTS ARE CONSIDERED AT RISK: WOMEN RATIO >5 MEN RATIO >6 FASTING? - [facility] Yes 15:10 [facility] HDL 37(L) 40 - 60 mg/dL 03/19/2020 15:55 [facility] Comment: ?? Reference Range Low: ? < 40 ??mg/dL Normal: ??40-60 mg/dL High: ?>= 60 mg/dL LDL CHOLESTEROL - [facility] 57(L) 60 - 100 mg/dL 03/19/2020 15:55 [facility] Non HDL Cholesterol 115 mg/dl 03/19/2020 15:55 [facility] Comment: Desirable: ?Less than 130 Borderline High: ??130-159 High: ? 160-189 Very High: ?Greater than or equal to 190 03/19/2020 9:45 EST 03/19/2020 15:10 EST Lucy Elizabeth MD CHEMISTRY & BLOOD GA S ORDERABLES [facility] [address] [place] [address] * (ABNORMAL) COMPREHENSIVE METABOLIC PANEL (CMP) (03/19/2020 9:45 EST) Albumin % 4.7 3.4 - 4.9 g/dL 03/19/2020 15:55 [facility] ALKALINE PHOSPHATASE - [facility] 70 38 - 126 U/L 03/19/2020 15:55 [facility] BILIRUBIN TOTAL 0.5 0.2 - 1.3 mg/dL 03/19/2020 15:55 [facility] BUN - [facility] 24 10 - 26 mg/dL 03/19/2020 15:55 [facility] CALCIUM - [facility] 10.7(H) 8.5 - 10.5 mg/dL 03/19/2020 15:55 [facility] Chloride 99 96 - 110 mmol/L 03/19/2020 15:55 [facility] CO2 Total 27 21 - 32 mEq/L 03/19/2020 15:55 [facility] CREATININE 0.99 0.66 - 1.25 mg/dL 03/19/2020 15:55 [facility] eGFR >60 03/19/2020 15:55 [facility] Comment: Chronic renal impairment is defined as GFR <60 Multiply result by 1.210 for patients. Anion Gap 13 0 - 18 03/19/2020 15:55 [facility] GLUCOSE - [facility] 112(H) 70 - 100 mg/dL 03/19/2020 15:55 [facility] Potassium 4.4 3.5 - 5.0 mEq/L 03/19/2020 15:55 [facility] Sodium 139 136 - 145 mEq/L 03/19/2020 15:55 [facility] TOTAL PROTEIN - [facility] 7.6 6.2 - 8.2 gm/dL 03/19/2020 15:55 [facility] SGOT/AST - [facility] 28 17 - 59 U/L 03/19/2020 15:55 [facility] SGPT/ALT - [facility] 21 0 - 50 U/L 15:55 [facility] 03/19/2020 9:45 EST 03/19/2020 15:10 EST Lucy Elizabeth MD CHEMISTRY & BLOOD GA S ORDERABLES [facility] [address] [place] [address] documented in this encounter Visit Diagnoses Not on filedocumented in this encounter Care Teams Styrene Dehydration Reactor Operator Relationship Specialty Start Date End Date Lucy Elizabeth MD [address] [place] [phone] PCP - General 09/28/08 03/08/21 documented as of this encounter
--- OUTSIDE RECORDS SUMMARY | 2023-12-21 00:36 | XMS_ITS | Encounter Summary ---
Author Organization [facility] Address [address] [place] [address] Care Team Providers Care Forensic Toxicologist Name Role Phone Lucy Elizabeth MD Primary Care Provider [phone] Reason for Visit * Reason Onset Date Comments Follow-up 02/16/2021 Encounter Details Date Type Department Care Team (Late st Contact Info) Description 02/16/2021 Telephone [facility] Physical Medicine & [place] [address] [place] [address] Cora Foster MD [address] [place] [phone] Follow-up Social History Tobacco Use Types [...] Encounter - Cora Foster MD - 02/17/2021 9140 EST Contacted Janes's mother by phone this [...] evaluated in our outpatient PT setting at [facility] to look at overall strength and range [...] ??? Amb Consult/Follow Up Physical Therapy - [facility] Had developed a shoulder strain on one [...] extremity strength that could be utilized in [place]ilton setting. Standing Status: Future Standing Expiration Date: 02/17/2022 Referral Priority: See Order Priority Referral Type: PT/OT/ST Referral Reason: Specialty Services Required Number of Visits Requested: 1 * Telephone Encounter - Yanick Ortiz MA - 02/16/2021 1134 EST Desiree calls again with request to speak w/ Dr. Foster concerning Janes's inability to make transfers now. She can be reached at [phone]. 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
--- OUTSIDE RECORDS SUMMARY | 2023-12-21 00:36 | XMS_ITS | Encounter Summary ---
Author Organization [facility] Address [address] [place] [address] Care Team Providers Care Tax Adjuster Name Role Phone Lucy Elizabeth MD Primary Care Provider [phone] Reason for Visit * Reason Comments Follow-up Botox Injection * Medication Prior Authorization (Routine) - Specialty Report Received Specialty Diagnoses / Procedures Referred By Rubina perkins Referred To Contact Physical Medicine and Rehab Diagnoses 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HCC-CMS) Cora Foster MD [address] [place] [phone] [facility] Phys Med Rehab [place] [address] Referral ID Status Reason Start Date Expiration Date Visits Requested Visits Authorized [id number] Specialty Report Received Medication Prior Authorization 1 1 1 Encounter Details Date Type Department Care Team (Latest Contact Info) Description 01/21/2021 13:00 EST Procedure visit [facility] Physical Medicine & Rehabilitation [place] [address] Cora Foster MD [address] [place] [phone] 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HCC-CMS) ([facility]) No past medical history on file. Past [...] and Family: Not on file ??? Attends Taoist Services: Not on file ??? Active Member [...] unit injection Inject into the muscle. ??? Ccakesr-Rgqsdpspj-Iiqu 333-133-5 mg Tab Take 2 Tabs by [...] for him. We will request services from [facility] health. Although temporarily at his parents [...] Primary? 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 botulinum toxin Type A (BOTOX) injection 300 Units No orders of the defined types were placed in this encounter. Future Appointments Date Time Provider Department Center 04/15/2021 14:30 [facility] Portions of this document have been prepared with speech recognition software or keyboard data reviewer techniques. Minor irregularities or keyboarding misprints may be present. I spent a total of 30 minutes on the date of this encounter meeting with the patient and reviewing documentation/coordinating care as described in the above note. This was separate from any procedures performed at the time of the visit. * Yainck Hopper MA - 01/21/2021 1300 EST ~ [facility] referral faxed to [facility]. YANICK HOPPER MA documented in this encounter [...] Department Center 04/15/2021 14:30 Cora Foster MD [facility] None documented in this encounter Plan of Treatment Upcoming Encounters Date Type Department Care Team (Late st Contact Info) Description 01/23/2024 16:00 EST Office Visit [facility] Neu[facility] [address] [place] [address] Scott Esquivel MD 130 [facility] [address] [place] [address] documented as of this encounter [...] Units documented in this encounter Care Teams Tax Adjuster Relationship Specialty Start Date End Date Lucy Elizabeth MD [address] [place] [phone] PCP - General 09/28/08 03/08/21 documented as of this encounter
--- OUTSIDE RECORDS SUMMARY | 2023-12-21 00:36 | XMS_ITS | Encounter Summary ---
Author Organization [facility] Address [address] [place] [address] Care Team Providers Care Outplacement Consultant Name Role Phone Lucy Elizabeth MD Primary Care Provider Encounter Details Date Type Department Care Team (Late st Contact Info) Description 01/25/2021 Results Only [facility] [phone] Suyapa Duarte MD [address] [place] [phone] Social History Tobacco Use Types Packs/Day [...] Info) Description 01/23/2024 16:00 EST Office Visit [facility] Neurology Clinic [address] [place], [place] [phone] Scott Esquivel MD [address] [facility] [address] [place] [address] documented as of this encounter Procedures Procedure Name Priority Date/Time Associated Diagnosis Comments COMPREHENSIVE METABOLIC PANEL (CMP) Routine 01/25/2021 15:24 EST documented in this encounter Results * (ABNORMAL) COMPREHENSIVE METABOLIC PANEL (CMP) (01/25/2021 15:24 EST) Glucose 150.00(H) 70.00 - 100.00 mg/dL [facility] Bun 26.00(H) 7.00 - 20.00 mg/dL [facility] Creatinine 1.10 0.70 - 1.50 mg/dL [facility] Estimated GFR >60 [facility] Comment: Chronic renal impairment is defined as GFR <60 Multiply result by 1.210 for patients eGFR calculated using the IDMS-traceable MDRD study Sodium 142.00 137.00 - 145.00 mmol/L [facility] Potassium 4.30 3.50 - 5.10 mmol/L [facility] Chloride 107.00 98.00 - 107.00 mmol/L [facility] Carbon Dioxide 26.00 22.00 - 30.00 mmol/L [facility] Calcium 10.40 8.50 - 10.50 mg/dL [facility] Anion Gap 9 7 - 17 mmol/L [facility] Total Protein 7.40 6.30 - 8.20 g/dL [facility] Albumin 4.60 3.50 - 5.00 g/dL [facility] Total Bilirubin 0.30 0.20 - 1.30 mg/dL [facility] AST/SGOT 31.00 15.00 - 46.00 U/L [facility] ALT/SGPT 26.00 0.00 - 50.00 U/L [facility] ALK 79.00 38.00 - 126.00 U/L [facility] 01/25/2021 15:2 4 EST Suyapa Duarte MD CHEMISTRY & BLOOD GA S ORDERABLES [facility] [address] [place] [address] documented in this encounter Visit Diagnoses Not on filedocumented in this encounter Care Teams Outplacement Consultant Relationship Specialty Start Date End Date Lucy Elizabeth MD [address] [place] [phone] PCP - General 09/28/08 03/08/21 documented as of this encounter
--- OUTSIDE RECORDS SUMMARY | 2023-12-21 00:36 | XMS_ITS | Encounter Summary ---
Author Organization [facility] Address [address] [place] [address] Care Team Providers Care Roll Changer Name Role Phone Lucy Elizabeth MD Primary Care Provider [phone] Reason for Visit * Reason Comments Follow-up Encounter Details Date Type Department Care Team (Latest Contact Info) Description 12/15/2019 14:30 EDT Office Visit [facility] Physical Medicine & [place] [address] [address] [place] [address] Cora Foster MD [address] [place] [phone] 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HCC-CMS) [...] he receives home health assistance through the [facility]. Every weekday morning he [...] file Gets together: Not on file Attends yarsanism service: Not on file Active member of [...] Type A (BOTOX) 100 unit injection ??? Knctsgq-Haonqwccd-Hmok 333-133-5 mg Tab ??? celecoxib (CELEBREX) 100 [...] having malfunction issues. Last injections while at [facility]: 05/10/2016-Botox 400, 200 distributed to each post. Thigh equally through M/L HS [facility] first dose 01/2008 Plan: Encounter Diagnoses Name Primary? 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HCC-CMS) Yes No orders of the defined types were placed in this encounter. Future Appointments Date Time Provider Department Center 02/03/2020 15:30 Cora Foster MD [facility] None Portions of this document have been prepared with speech recognition software or keyboard health data analyst techniques. Minor irregularities or keyboarding misprints may be present. 25 minutes total time [id number], 15 minutes in discussion / ed. 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
--- OUTSIDE RECORDS SUMMARY | 2023-12-21 00:36 | XMS_ITS | Encounter Summary ---
Author Organization [facility] Address [address] [place] [address] Care Team Providers Care Internet Marketing Director Name Role Phone Lucy Elizabeth MD Primary Care Provider [phone] Encounter Details Date Type Department Care Team (Late st Contact Info) Description 01/25/2021 Results Only [facility] [phone] Suyapa Duarte MD [address] [place] [phone] Social History Tobacco Use Types Packs/Day [...] Office Visit [facility] Neurology Clinic [address] [place], [place] [address] Scott Esquivel MD 130 [facility] [address] [place] [address] documented as of this encounter Procedures Procedure Name Priority Date/Time Associated Diagnosis Comments LDL CHOLESTEROL Routine 01/25/2021 15:24 EST documented in this encounter Results * (ABNORMAL) LDL CHOLESTEROL (01/25/2021 15:24 EST) Calculated LDL 53(L) 60 - 100 mg/dL [facility] 01/25/2021 15:2 4 EST Suyapa Duarte MD HEMATOLOGY & PF4 ORD ERABLES [facility] [address] [place] [address] documented in this encounter Visit Diagnoses Not on filedocumented in this encounter Care Teams Internet Marketing Director Relationship Specialty Start Date End Date Lucy Elizabeth MD [address] [place] [phone] PCP - General 09/28/08 03/08/21 documented as of this encounter
--- OUTSIDE RECORDS SUMMARY | 2023-12-21 00:36 | XMS_ITS | Encounter Summary ---
Author Organization [facility] Address [address] [place] [address] Care Team Providers Care Photographic Editor Name Role Phone Suyapa Duarte MD Primary Care Provider [phone] Reason for Visit * Reason Onset Date Comments Appointment Related 04/13/2021 Encounter Details Date Type Department Care Team (Late st Contact Info) Description 04/13/2021 Telephone [facility] Rehabilitation Therapy [address] [phone] Therapy, Outpatient, Appointment Related Social History Tobacco [...] Info) Description 01/23/2024 16:00 EST Office Visit [facility] Neurology Clinic [address] [place] [address] Scott Esquivel MD [address] [facility] [place] [phone] documented as of this encounter Visit Diagnoses Not on filedocumented in this encounter Care Teams Photographic Editor Relationship Specialty Start Date End Date Suyapa Duarte MD [address] [place] [phone] PCP - General Family Medicine - Primary Care 03/09/21 documented as of this encounter
--- OUTSIDE RECORDS SUMMARY | 2023-12-21 00:36 | XMS_ITS | Encounter Summary ---
Author Organization [facility] Address [address] [place] [address] Care Team Providers Care Freezer Assistant Name Role Phone Lucy Elizabeth MD Primary Care Provider [phone] Reason for Visit * Reason Onset Date Comments Appointment Related 07/21/2019 Encounter Details Date Type Department Care Team (Late st Contact Info) Description 07/21/2019 Telephone [facility] Rehabilitation Therapy - [address] [phone] Therapy, Physical Appointment Related Social History Tobacco [...] Info) Description 01/23/2024 16:00 EST Office Visit [facility] Neurology Clinic [address] [place] [address] Scott Esquivel MD 130 [facility] [place] [phone] documented as of this encounter Visit Diagnoses Not on filedocumented in this encounter Care Teams Freezer Assistant Relationship Specialty Start Date End Date Lucy Elizabeth MD [address] [place] [phone] PCP - General 09/28/08 03/08/21 documented as of this encounter
--- OUTSIDE RECORDS SUMMARY | 2023-12-21 00:36 | XMS_ITS | Encounter Summary ---
Author Organization [facility] Address [address] [place] [address] Care Team Providers Care Senior Quality Analyst Name Role Phone Lucy Elizabeth MD Primary Care Provider [phone] Encounter Details Date Type Department Care Team (Late st Contact Info) Description 01/25/2021 Results Only [facility] [phone] Suyapa Duarte MD [address] [place] [phone] Social History Tobacco Use Types Packs/Day [...] Info) Description 01/23/2024 16:00 EST Office Visit [facility] Neurology Clinic [address] [place], [place] [address] Scott Esquivel MD 130 [facility] [address] [place] [phone] documented as of this encounter Procedures Procedure Name Priority Date/Time Associated Diagnosis Comments VITAMIN D (25,OH) Routine 01/25/2021 15: 24 EST documented in this encounter Results * VITAMIN D (25,OH) (01/25/2021 15:24 EST) Vitamin D 63 30 - 100 ng/ml [facility] 01/25/2021 15:2 4 EST Suyapa Duarte MD CHEMISTRY & BLOOD GA S ORDERABLES [facility] [address] [place] [address] documented in this encounter Visit Diagnoses Not on filedocumented in this encounter Care Teams Senior Quality Analyst Relationship Specialty Start Date End Date Lucy Elizabeth MD [address] [place] [phone] PCP - General 09/28/08 03/08/21 documented as of this encounter
--- OUTSIDE RECORDS SUMMARY | 2023-12-21 00:36 | XMS_ITS | Encounter Summary ---
Author Organization [facility] Address [address] [place] [address] Care Team Providers Care Manager Functional Name Role Phone Lucy Elizabeth MD Primary Care Provider [phone] Suyapa Duarte MD Primary Care Provider [phone] Encounter Details Date Type Department Care Team (Late st Contact Info) Description 01/03/2019 Hospital Encounter [address] [address] Lucy Elizabeth MD [address] [place] [phone] Social History Tobacco Use Types Packs/Day [...] Info) Description 01/23/2024 16:00 EST Office Visit [facility] Neurology Clinic [address] [place] [address] Scott Esquivel MD 130 [facility] [place] [phone] documented as of this encounter Visit Diagnoses Not on filedocumented in this encounter Care Teams Manager Functional Relationship Specialty Start Date End Date Lucy Elizabeth MD [address] [place] [phone] PCP - General 09/28/08 03/08/21 Suyapa Duarte MD [address] [place] [phone] PCP - General Family Medicine - Primary Care 03/09/21 documented as of this encounter
--- OUTSIDE RECORDS SUMMARY | 2023-12-21 00:36 | XMS_ITS | Encounter Summary ---
Author Organization [facility] Address [address] [place] [address] Care Team Providers Care Supervisor Pipeline Maintenance Name Role Phone Lucy Elizabeth MD Primary Care Provider [phone] Encounter Details Date Type Department Care Team [...] Rehab Plan of Care Assessment REHABILITATION THERAPIES [facility] REHABILITATION THERAPY - [address] [address] Physical Therapy Addendum Note To Wheelchair Prescription [...] Info) Description 01/23/2024 16:00 EST Office Visit [facility] [address] [place] [address] Scott Esquivel MD 130 [facility] [address] [place] [address] documented as of this encounter Visit Diagnoses Not on filedocumented in this encounter Care Teams Supervisor Pipeline Maintenance Relationship Specialty Start Date End Date Lucy Elizabeth MD [address] [place] [phone] PCP - General 09/28/08 03/08/21 documented as of this encounter
--- OUTSIDE RECORDS SUMMARY | 2023-12-21 00:36 | XMS_ITS | Encounter Summary ---
Author Organization [facility] Address [address] [place] [address] Care Team Providers Care Railroad Switchman Name Role Phone Lucy Elizabeth MD Primary Care Provider [phone] Reason for Visit * Reason Onset Date Comments Appointment Related 03/26/2019 Encounter Details Date Type Department Care Team (Late st Contact Info) Description 03/26/2019 Telephone [facility] Rehabilitation Therapy - [address] [phone] Therapy, Physical Appointment Related Social History Tobacco [...] Visit [facility]rology Clinic [address] [place] [address] Scott Esquivel MD 130 [facility] [address] [place] [address] documented as of this encounter Visit Diagnoses Not on filedocumented in this encounter Care Teams Railroad Switchman Relationship Specialty Start Date End Date Lucy Elizabeth MD [address] [place] [phone] PCP - General 09/28/08 03/08/21 documented as of this encounter
--- OUTSIDE RECORDS SUMMARY | 2023-12-21 00:36 | XMS_ITS | Encounter Summary ---
Author Organization [facility] Address [address] [place] [address] Care Team Providers Care Yarn Wrapper Name Role Phone Lucy Elizabeth MD Primary Care Provider [phone] Reason for Visit * Reason Onset Date Comments Appointment Related 05/21/2019 Encounter Details Date Type Department Care Team (Late st Contact Info) Description 05/21/2019 Telephone [facility] Rehabilitation Therapy - [address] [phone] Therapy, Physical Appointment Related Social History Tobacco [...] have secured 06/24 for 1:30 here at C with Zev Flores PT and DOMINIQUE Hutchison of [facility] for the wheelchair fitting. Dad will be out of town, possibly so a caregiver would bring Janes. Also, Dad stated that a sister in [place] may be present to take pictures for [...] Description 01/23/2024 16:[address] [facility] Neurology Clinic [address] [place] [address] Scott Esquivel MD 130 [facility]- [address] [place] [address] documented as of this encounter Visit Diagnoses Not on filedocumented in this encounter Care Teams Yarn Wrapper Relationship Specialty Start Date End Date Lucy Elizabeth MD [address] [place] [phone] PCP - General 09/28/08 03/08/21 documented as of this encounter
--- OUTSIDE RECORDS SUMMARY | 2023-12-21 00:36 | XMS_ITS | Encounter Summary ---
Author Organization [facility] Address [address] [place] [address] Care Team Providers Care Warping Machine Operator Name Role Phone Lucy Elizabeth MD Primary Care Provider [phone] Reason for Referral * Medication Prior Authorization (Routine) - Specialty Report Received Specialty Diagnoses / Procedures Referred By Rubina perkins Referred To Contact Physical Medicine and Rehab Diagnoses 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[facility]) Cora Foster MD [address] [place] [phone] [facility] Phys Med Rehab [address] [place] [address] [place] [address] Referral ID Status Reason Start Date Expiration Date Visits Requested Visits Authorized [id number] Specialty Report Received Medication Prior Authorization 1 [...] Rehab Diagnoses 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[facility]) Cora Foster MD [address] [place] [phone] [facility] Med Rehab [address] [place] [address] Referral ID Status Reason Start Date Expiration Date Visits Requested Visits Authorized [id number] Specialty Report Received Medication Prior Authorization 1 1 1 Encounter Details Date Type Department Care Team (Latest Contact Info) Description 07/29/2020 13:45 EDT Procedure visit [facility] Physical Medicine & [place] [address] Cora Foster MD 0 [place] [address] 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HCC-CMS) [...] Active Problem List Diagnosis ??? 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[facility]) No past medical history on file. [...] file Gets together: Not on file Attends roman catholic service: Not on file Active member of [...] unit injection Inject into the muscle. ??? Rwpjoeo-Lvygofhzn-Gskx 333-133-5 mg Tab Take 2 Tabs by [...] prepared with speech recognition software or keyboard director enterprise data architecture techniques. Minor irregularities or keyboarding misprints may be present. I spent a total of 10 minutes on the date of this encounter meeting with the patient and reviewing documentation/coordinating care as described in the above note. This was separate from any procedures performed at the time of the visit. documented in this encounter Procedure Notes * Cora Foster MD - 07/29/2020 4405 EDT Procedure: Procedures After reviewing history and [...] Info) Description 01/23/2024 16:00 EST Office Visit [facility] [address] [place], [place] [phone] Scott Esquivel MD 130 [facility] [address] [place] [phone] Scheduled Referrals Name Type Priority Associated Diagnoses Orde r Schedule AMB MEDICATION PRIOR AUTHORIZATION Outpatient Referral Routine 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HCC-CMS) Ordered: 07/29/2020 documented as of this encounter [...] Units documented in this encounter Care Teams Warping Machine Operator Relationship Specialty Start Date End Date Lucy Elizabeth MD [address] [place] [phone] PCP - General 09/28/08 03/08/21 documented as of this encounter
--- OUTSIDE RECORDS SUMMARY | 2023-12-21 00:36 | XMS_ITS | Encounter Summary ---
Author Organization [facility] Address [address] [place] [address] Care Team Providers Care Property Claims Adjuster Name Role Phone Lucy Elizabeth MD Primary Care Provider [phone] Encounter Details Date Type Department Care Team [...] Info) Description 01/23/2024 16:00 EST Office Visit [facility] Neurology Clinic [address] [place] [address] Scott Esquivel MD 130 [facility] [address] [place] [phone] documented as of this encounter Visit Diagnoses Not on filedocumented in this encounter Care Teams Property Claims Adjuster Relationship Specialty Start Date End Date Lucy Elizabeth MD [address] [place] [phone] PCP - General 09/28/08 03/08/21 documented as of this encounter
--- OUTSIDE RECORDS SUMMARY | 2023-12-21 00:36 | XMS_ITS | Encounter Summary ---
Author Organization [facility] Address [address] [place] [address] Care Team Providers Care Extermination Inspector Name Role Phone Lucy Elizabeth MD Primary Care Provider [phone] Reason for Visit * Reason Onset Date Comments Other 02/11/2021 Encounter Details Date Type Department Care Team (Late st Contact Info) Description 02/11/2021 Telephone [facility] Sports Medicine Program [place] [address] [place] [address] Cora Pardo, RN Other Social History Tobacco [...] is fine if she calls next week. Deisree's documented in this encounter Plan of Treatment Upcoming Encounters Date Type Department Care Team (Late st Contact Info) Description 01/23/2024 16:00 EST Office Visit [facility] Neurology Clinic [address] [place] [phone] Scott Esquivel MD 130 [facility] [address] [place] [address] documented as of this encounter Visit Diagnoses Not on filedocumented in this encounter Care Teams Extermination Inspector Relationship Specialty Start Date End Date Lucy Elizabeth MD [address] [place] [phone] PCP - General 09/28/08 03/08/21 documented as of this encounter
--- OUTSIDE RECORDS SUMMARY | 2023-12-21 00:36 | XMS_ITS | Encounter Summary ---
Author Organization [facility] Address [address] [place] [address] Care Team Providers Care Home Management Supervisor Name Role Phone Lucy Elizabeth MD Primary Care Provider [phone] Encounter Details Date Type Department Care Team (Late st Contact Info) Description 05/13/2019 Results Only [facility] [phone] Suyapa Duarte MD [address] [place] [phone] Social History Tobacco Use Types Packs/Day [...] Info) Description 01/23/2024 16:00 EST Office Visit [facility] Neurology Clinic [address] [place], [place] [phone] Scott Esquivel MD 130 [facility] [address] [place] [phone] documented as of this encounter Procedures Procedure Name Priority Date/Time Associated Diagnosis Comments GLYCOHEMOGLOBIN POC - [facility] Routine 05/13/2019 13:08 EDT documented in this encounter Results * (ABNORMAL) GLYCOHEMOGLOBIN POC - [facility] (05/13/2019 13:08 EDT) Hemoglobin A1c 7.5(H) 4.0 - 6.0 % 05/13/2019 13:09 EDT [facility] AVG CALCULATED GLUCOSE - [facility] 170(H) 60 - 115 MG/DL 05/13/2019 13:09 EDT [facility] 05/13/2019 13:0 8 EDT 05/13/2019 13:08 EDT Suyapa Duarte MD CHEMISTRY & BLOOD GA S ORDERABLES [facility] documented in this encounter Visit Diagnoses Not on filedocumented in this encounter Care Teams Home Management Supervisor Relationship Specialty Start Date End Date Lucy Elizabeth MD [address] [place] [phone] PCP - General 09/28/08 03/08/21 documented as of this encounter
--- OUTSIDE RECORDS SUMMARY | 2023-12-21 00:36 | XMS_ITS | Encounter Summary ---
Author Organization [facility] Address [address] [place] [address] Care Team Providers Care Senior Scientist Name Role Phone Lucy Elizabeth MD Primary Care Provider [phone] Reason for Referral * Medication Prior Authorization (Routine) - Specialty Report Received Specialty Diagnoses / Procedures Referred By Rubina perkins Referred To Contact Diagnoses 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HCC-CMS) Cora Foster MD [address] [place] [phone] Referral ID Status Reason Start Date Expiration Date Visits Requested Visits Authorized [id number] Specialty Report Received Medication Prior Authorization 08/06/2019 [...] Info) Description 08/06/2019 11:00 EDT Office Visit [facility] Physical Medicine & Rehabilitation [place] [address] [place] [address] Cora Foster MD [address] [place] [phone] 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HCC-CMS) (Primary [...] the [facility] wheelchair [facility]. [employer]. He has been receiving bilateral medial and lateral hamstring Botox injections for quite a few years. He receives injections approximately every 3 months. Recently he has receivedy Dys[place] from Dr. Melendez a total of 1000 units. His last injections with Dr. Melendez was still at the [facility] office [id number] units of Botox A. Those were in May 2016. He received 200 units distributed through hamstrings to each leg. His last x-rays were of his lumbar spine with report as follows: 12/22/2010 History/Comments: ??724.6-XJWGLPK-VXP-9-CM 343.2-CONGENITAL JUBCEZSPLBZL-ZIK-2-CM ??2 weeks of new right low back [...] that does a program. Parents live in [facility] . Janes has been in a accessible apt in [place] for About 27 years. He was places with them as a foster child 48 yrs. And subsequently adopted. In his apartment he gets home health aides from [facility] home health every morning for breakfast, bathing, dressing and intermittent nursing as needed. [facility] developmental services provides 30 hours/week for appointments, cleaning, food. On weekends he gets 2 to 3 hours from [facility]. His apartment has ramp access 2 other sons with families in [place]. Don't feel they could get the same [...] file Gets together: Not on file Attends anabaptism service: Not on file Active member of [...] toxin Type A (BOTOX) 100 unit injection Zxeqwyy-Rcscnrour-Dsyx 333-133-5 mg Tab celecoxib (CELEBREX) 100 mg [...] Department Center 10/29/2019 11:30 Cora Foster MD [facility] None Portions of this document have been prepared with speech recognition software or keyboard database designer techniques. Minor irregularities or keyboarding misprints may be present. 50 minutes face-to face time with patient, 35 minutes in education/counseling on above issues as explained in the assessment and plan. documented in this encounter Plan of Treatment Upcoming Encounters Date Type Department Care Team (Late st Contact Info) Description 01/23/2024 16:00 EST Office Visit [facility] Neurology Clinic [address] [place] [address] Scott Esquivel MD [address] [place] [address]-[address] [place] [address] Scheduled Referrals Name Type Priority Associated Diagnoses Orde r Schedule AMB MEDICATION PRIOR AUTHORIZATION Outpatient Referral Routine 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[facility]) Ordered: 08/06/2019 documented as of this encounter Visit Diagnoses Diagnosis 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[facility])- Primary Congenital quadriplegia documented in [...] Biweekly added in this encounter Care Teams Senior Scientist Relationship Specialty Start Date End Date Lucy Elizabeth MD [address] [place] [phone] PCP - General 09/28/08 03/08/21 documented as of this encounter
--- OUTSIDE RECORDS SUMMARY | 2023-12-21 00:36 | XMS_ITS | Encounter Summary ---
Author Organization [facility] Address [address] [place] [address] Care Team Providers Care Process Safety Engineer Name Role Phone Lucy Elizabeth MD Primary Care Provider Encounter Details Date Type Department Care Team (Latest Contact Info) Description 12/19/2018 14:04 EDT - 12/20/2018 23:59 EDT Hospital Encounter [address] [address] Lucy Elizabeth MD [address] [place] [phone] Discharge Disposition: Home or Self Care [...] 100 unit injection Inject into the muscle. Zttlhix-Whwxkpmag-Zpjl 333-133-5 mg Tab Take 2 Tabs by [...] Info) Description 01/23/2024 16:00 EST Office Visit [facility] Neurology Clinic [address] [place] [address] Scott Esquivel MD 130 [facility] [address] [place] [phone] documented as of this encounter Visit Diagnoses Not on filedocumented in this encounter Care Teams Process Safety Engineer Relationship Specialty Start Date End Date Lucy Elizabeth MD [address] [place] [phone] PCP - General 09/28/08 03/08/21 documented as of this encounter
--- OUTSIDE RECORDS SUMMARY | 2023-12-21 00:36 | XMS_ITS | Encounter Summary ---
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[facility]) Cora Foster MD [address] [place] [phone] [facility] Re[facility] [address] [place] [address] [place] [address] Referral ID Status Reason Start Date Expiration Date Visits Requested Visits Authorized [id number] Specialty Report Received Medication Prior Authorization 0 [...] quadriplegic cerebral palsy (HCC-CMS) Cora Foster MD [address] [place] [phone] Referral ID Status Reason Start Date Expiration Date Visits Requested Visits Authorized [id number] Specialty Report Received Medication Prior Authorization 0 1 1 Encounter Details Date Type Department Care Team (Latest Contact Info) Description 02/03/2020 15:30 EST Procedure visit [facility] Physical Medicine & Rehabilitation - [address] [place], [place] [phone] Cora Foster MD [address] [place] [address] 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HCC-CMS) [...] Active Problem List Diagnosis ??? 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 [...] file Gets together: Not on file Attends yarsani service: Not on file Active member of [...] unit injection Inject into the muscle. ??? Tvblobc-Vhvumtzdl-Tnqi 333-133-5 mg Tab Take 2 Tabs by [...] having malfunction issues. Last injections while at [facility]: 05/10/2016-Botox 400, 200 distributed to each posterior thigh equallythrough M/L HS [facility] first dose 01/2008 Plan: Encounter Diagnoses Name [...] Department Center 04/29/2020 13:30 [facility] None Portions of this document have been prepared with speech recognition software or keyboard data designer techniques. Minor irregularities or keyboarding misprints [...] Department Center 04/29/2020 13:30 [facility] None * Cora Foster MD - 02/03/2020 1530 EST Procedure: Procedures See progress note for all procedure information regarding Botox injections documented in this encounter Plan of Treatment Upcoming Encounters Date Type Department Care Team (Late st Contact Info) Description 01/23/2024 16:00 EST Office Visit [facility] Neurology Clinic [address] [place] [address] Scott Esquivel MD [address] [place] [address] [address] [place] [phone] Pending Results Name Type Priority Associated Diagnoses [...] Units documented in this encounter Care Teams Mold Shaker Relationship Specialty Start Date End Date Lucy Elizabeth MD [address] [place] [phone] PCP - General 09/28/08 03/08/21 documented as of this encounter
--- OUTSIDE RECORDS SUMMARY | 2023-12-21 00:36 | XMS_ITS | Encounter Summary ---
Author Organization [facility] Address [address] [place] [address] Care Team Providers Care Brand Mgr Name Role Phone Lucy Elizabeth MD Primary Care Provider [phone] Reason for Visit * Reason Onset Date Comments Appointment Related 01/02/2019 Encounter Details Date Type Department Care Team (Late st Contact Info) Description 01/02/2019 Telephone [facility] Rehabilitation Therapy - [address] [phone] Therapy, Physical Appointment Related Social History Tobacco [...] and back from Naga Melendez MD. This lead medical technologist has made four request for the note dated 11/27/18 to include two telephone calls. Per father he will reach out to Dr. Melendez and ask that this be expedited. Hodan Parker 01/02/2019 10:10 documented in this encounter Plan of Treatment Upcoming Encounters Date Type Department Care Team (Late st Contact Info) Description 01/23/2024 16:00 EST Office Visit [facility] Neurology Clinic [address] [place] [address] Scott Esquivel MD 130 [facility] [address] [place] [phone] documented as of this encounter Visit Diagnoses Not on filedocumented in this encounter Care Teams Brand Mgr Relationship Specialty Start Date End Date Lucy Elizabeth MD [address] [place] [phone] PCP - General 09/28/08 03/08/21 documented as of this encounter
--- OUTSIDE RECORDS SUMMARY | 2023-12-21 00:36 | XMS_ITS | Encounter Summary ---
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[facility]) Cora Foster MD [address] [place] [phone] [facility] Phys Med Rehab [address] [place] [address] [place] [address] Referral ID Status Reason Start Date Expiration Date Visits Requested Visits Authorized [id number] Specialty Report Received Medication Prior Authorization 1 [...] Rehab Diagnoses Spasticity 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[facility]) Cora Foster MD [address] [place] [phone] [facility] Phys Med Rehab [address] [place] [address] Referral ID Status Reason Start Date Expiration Date Visits Requested Visits Authorized [id number] Specialty Report Received Medication Prior Authorization 0 1 1 Encounter Details Date Type Department Care Team (Latest Contact Info) Description 04/29/2020 13:30 EST Procedure visit [facility] Physical Medicine & Rehabilitation - [address] [place] [address] Cora Foster MD 0 [place] [phone] 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HCC-CMS) [...] List Diagnosis ??? 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[facility]) No past medical history on [...] file Gets together: Not on file Attends christianity service: Not on file Active member of [...] unit injection Inject into the muscle. ??? Abvnaat-Qaetibygd-Nzjs 333-133-5 mg Tab Take 2 Tabs by [...] Diagnoses Name Primary? 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 [...] Department Center 07/22/2020 13:00 Cora Foster MD [facility] None Portions of this document have [...] Department Center 07/22/2020 13:00 [facility] Consider slight decrease to dosing next visit depending on timing of his next follow-up. documented in this encounter Plan of Treatment Upcoming Encounters Date Type Department Care Team (Late st Contact Info) Description 01/23/2024 16:00 EST Office Visit [facility] Neurology Clinic [address] [place] [address] Scott Esquivel MD [address] [place] [address]-[address] [place] [address] Scheduled Referrals Name Type Priority [...] Units documented in this encounter Care Teams Internet Database Specialist Relationship Specialty Start Date End Date Lucy Elizabeth MD [address] [place] [phone] PCP - General 09/28/08 03/08/21 documented as of this encounter
--- OUTSIDE RECORDS SUMMARY | 2023-12-21 00:36 | XMS_ITS | Encounter Summary ---
Author Organization [facility] Address [address] [place] [address] Care Team Providers Care Bakery Team Member Name Role Phone Lucy Elizabeth MD Primary Care Provider [phone] Encounter Details Date Type Department Care Team (Late st Contact Info) Description 01/25/2021 Results Only [facility] [phone] Suyapa Duarte MD [address] [place] [phone] Social History Tobacco Use Types Packs/Day [...] [facility] [address] [place], [place] [id number] Scott Esquivel MD [address] [facility] [address] [place] [address] documented as of this encounter Procedures Procedure Name Priority Date/Time Associated Diagnosis Comments LIPID PROFILE (INCLUDES CHOLESTEROL, TRIGLYCERIDES, HDL, LDL) Routine 01/25/2021 15:24 EST documented in this encounter Results * (ABNORMAL) LIPID PROFILE (INCLUDES CHOLESTEROL, TRIGLYCERIDES, HDL, LDL) (01/25/2021 15:24 EST) Cholesterol 140.00 0.00 - 200.00 mg/dL [facility] dHDL 39.00(L) 40.00 - 60.00 mg/dL [facility] Triglycerides 241.00(H) 0.00 - 150.00 mg/dL [facility] 01/25/2021 15:2 4 EST Suyapa Duarte MD CHEMISTRY & BLOOD GA S ORDERABLES [facility] [address] [place] [address] documented in this encounter Visit Diagnoses Not on filedocumented in this encounter Care Teams Bakery Team Member Relationship Specialty Start Date End Date Lucy Elizabeth MD [address] [place] [phone] PCP - General 09/28/08 03/08/21 documented as of this encounter
--- OUTSIDE RECORDS SUMMARY | 2023-12-21 00:36 | XMS_ITS | Encounter Summary ---
Author Organization [facility] Address [address] [place] [address] Care Team Providers Care Raisin Separator Operator Name Role Phone Lucy Elizabeth MD Primary Care Provider [phone] Reason for Visit * Reason Onset Date Comments Appointment Related 12/18/2018 Encounter Details Date Type Department Care Team (Late st Contact Info) Description 12/18/2018 Telephone [facility] Rehabilitation Therapy - [address] [id number] Therapy, Physical Appointment Related Social History Tobacco [...] Visit [facility]rology Clinic [address] [place] [address] Scott Esquivel MD 130 [facility] [address] [place] [address] documented as of this encounter Visit Diagnoses Not on filedocumented in this encounter Care Teams Raisin Separator Operator Relationship Specialty Start Date End Date Lucy Elizabeth MD [address] [place] [phone] PCP - General 09/28/08 03/08/21 documented as of this encounter
--- OUTSIDE RECORDS SUMMARY | 2023-12-21 00:36 | XMS_ITS | Encounter Summary ---
Author Organization [facility] Address [address] [place] [address] Care Team Providers Care Pet Feeder Name Role Phone Lucy Elizabeth MD Primary Care Provider [phone] Encounter Details Date Type Department Care Team (Late st Contact Info) Description 01/25/2021 Results Only [facility]- [facility] [phone] Suyapa Duarte MD [address] [place] [phone] Social History Tobacco Use Types Packs/Day [...] 01/23/2024 16:00 EST Office Visit [facility] Neurology Clinic [address] [place] [address] Scott Esquivel MD 130 [facility] [address] [place] [address] documented as of this encounter Procedures Procedure Name Priority Date/Time Associated Diagnosis Comments HEMOGLOBIN A1C Routine 01/25/2021 15:24 EST documented in this encounter Results * (ABNORMAL) HEMOGLOBIN A1C (01/25/2021 15:24 EST) HgB A1C% 6.1(H) 4.0 - 6.0 % [facility] Average Calculated 123(H) 60 - 115 mg/dL [facility] 01/25/2021 15:2 4 EST Suyapa Duarte MD CHEMISTRY & BLOOD GA S ORDERABLES Performing Organization Address City/State/[facility] Co de Phone Number [facility] [address] [place] [address] documented in this encounter Visit Diagnoses Not on filedocumented in this encounter Care Teams Pet Feeder Relationship Specialty Start Date End Date Lucy Elizabeth MD [address] [place] [phone] PCP - General 09/28/08 03/08/21 documented as of this encounter
--- OUTSIDE RECORDS SUMMARY | 2023-12-21 00:36 | XMS_ITS | Encounter Summary ---
Author Organization [facility] Address [address] [place] [address] Care Team Providers Care Software Tools Developer Name Role Phone Lucy Elizabeth MD Primary Care Provider [phone] Encounter Details Date Type Department Care Team (Late st Contact Info) Description 11/11/2019 Results Only [facility] - Main [address] [address] Lucy Elizabeth MD [address] [place] [phone] Social History Tobacco Use Types Packs/Day [...] Info) Description 01/23/2024 16:00 EST Office Visit [facility] [address] [place], [place] [address] Sctot Esquivel MD 130 [facility] [address] [place] [address] documented as of this encounter [...] 4.0 - 6.0 % 11/12/2019 0:09 EDT [facility] Comment: > or =18 years: ??Increased [...] Avg Glucose 131 mg/dL 0 0:09 EDT [facility] 11/11/2019 10:5 3 EDT 11/11/2019 15:44 EDT Lucy Elizabeth MD CHEMISTRY & BLOOD GA S ORDERABLES [facility] [address] [place] [address] * VIT D, 25-HYDROXY - [facility] (11/11/2019 10:53 EDT) VIT D, 25 HYDROXY - [facility] 88.5 30 - 100 ng/ml 11/11/2019 16:53 EDT [facility] Comment: ? 25-Hydroxy D Total (D2+D3) ?Expected Values Deficient: ?<20 ng/ml Insufficient: ? 20- <30 ng/ml Sufficient: ? 30-100 ng/ml Potential intoxication: >100 ng/ml 11/11/2019 10:5 3 EDT 11/11/2019 15:44 EDT Lucy Elizabeth MD CHEMISTRY & BLOOD GA S ORDERABLES Performing Organization Address [facility] Co de Phone Number [facility] [address] [place] [address] * VALPROIC ACID LEVEL (11/11/2019 10:53 EDT) Pathologist [facility] Valproic Acid 50.0 50 - 100 ug/mL 11/11/2019 16:41 EDT [facility] Comment: Therapeutic Range: 50-100 ug/mL Toxic: ??>120 ug/mL 11/11/2019 10:5 3 EDT 11/11/2019 15:44 EDT Lucy Elizabeth MD CHEMISTRY & BLOOD GA S ORDERABLES Performing Organization Address [facility] Co de Phone Number [facility] [address] [place] [address] * (ABNORMAL) MAGNESIUM (11/11/2019 10:53 EDT) Pathologist [facility] Magnesium 1.60(L) 1.7 - 2.8 mg/dL 11/11/2019 16:41 EDT [facility] 11/11/2019 10:5 3 EDT 11/11/2019 15:44 EDT Lucy Elizabeth MD CHEMISTRY & BLOOD GA S ORDERABLES Performing Organization Address [facility] Co de Phone Number [facility] [address] [place] [address] * (ABNORMAL) MICROALBUMIN, URINE (11/11/2019 8:30 EDT) Albumin, Urine 4.40(H) <1.7 mg/dL 11/11/2019 17:26 EDT [facility] Lab Urine Albumin to Creatinine Ratio 28.6 ug/mg 11/11/2019 17:26 EDT [facility] Comment: Normal: <30 ug/mg Creat Microalbuminuria: 30-300 ug/mg Creat Clinical albuminuria: >300 ug/mg Creat Creatinine, Urine 153.80 mg/dL 11/11/2019 17:26 EDT [facility] 11/11/2019 8:30 EDT 11/11/2019 16:28 EDT Lucy Elizabeth MD HEMATOLOGY & PF4 ORD ERABLES Performing Organization Address [facility] Co de Phone Number [facility] [address] [place] [address] documented in this encounter Visit Diagnoses Not on filedocumented in this encounter Care Teams Software Tools Developer Relationship Specialty Start Date End Date Lucy Elizabeth MD [address] [place] [phone] PCP - General 09/28/08 03/08/21 documented as of this encounter
--- OUTSIDE RECORDS SUMMARY | 2023-12-21 00:36 | XMS_ITS | Encounter Summary ---
Author Organization [facility] Address [address] [place] [address] Care Team Providers Care Practice Coordinator Name Role Phone Lucy Elizabeth MD Primary Care Provider [phone] Reason for Visit * Reason Onset Date Comments Other 01/09/2019 Encounter Details Date Type Department Care Team (Late st Contact Info) Description 01/09/2019 Telephone [facility] Rehabilitation Therapy - [facility] [address] [place], [place] [id number] Zev Flores, PT [address] [place] [address] Other Social History Tobacco Use [...] Encounter - Zev Flores, PT - 01/09/2019 1706 EST Called David Gooden and reported that I don't need him to sign the addendum. I also informed him I have been in contact with Dr. Melendez about the paperwork for him to sign and return to us. documented in this encounter Plan of Treatment Upcoming Encounters Date Type Department Care Team (Late st Contact Info) Description 01/23/2024 16:00 EST Office Visit [facility] Neurology Clinic [address] [place] [address] Scott Esquivel MD 130 [facility] [address] [place] [address] documented as of this encounter Visit Diagnoses Not on filedocumented in this encounter Care Teams Practice Coordinator Relationship Specialty Start Date End Date Lucy Elizabeth MD [address] [place] [phone] PCP - General 09/28/08 03/08/21 documented as of this encounter
--- OUTSIDE RECORDS SUMMARY | 2023-12-21 00:36 | XMS_ITS | Encounter Summary ---
Author Organization [facility] Address [address] [place] [address] Care Team Providers Care Qa Software Test Engineer Name Role Phone Suyapa Duarte MD Primary Care Provider [phone] Encounter Details Date Type Department Care Team [...] Info) Description 01/23/2024 16:00 EST Office Visit [facility] Neurology Clinic [address] [place], [place] [address] Scott Esquivel MD 130 [facility] [address] [place] [address] documented as of this encounter Visit Diagnoses Not on filedocumented in this encounter Care Teams Qa Software Test Engineer Relationship Specialty Start Date End Date Suyapa Duarte MD [address] [place] [phone] PCP - General Family Medicine - Primary Care 03/09/21 documented as of this encounter
--- OUTSIDE RECORDS SUMMARY | 2023-12-21 00:36 | XMS_ITS | Encounter Summary ---
Author Organization [facility] Address [address] [place] [address] Care Team Providers Care Health Technician Name Role Phone Lucy Elizabeth MD Primary Care Provider [phone] Suyapa Duarte MD Primary Care Provider [phone] Encounter Details Date Type Department Care Team (Latest Contact Info) Description 01/25/2021 Lab Requisition [facility] - Main [place] [address] [place] [phone] Suyapa Duarte MD [address] [place] [phone] Unspecified convulsions (HCC-CMS) (HCC) (HCC-CMS); Type [...] Info) Description 01/23/2024 16:00 EST Office Visit [facility] Neurology Clinic [address] [place] [address] Scott Esquivel MD 130 [facility] [address] [place] [address] documented as of this encounter Procedures Procedure Name Priority Date/Time Associated Diagnosis Comments URINE [id number]-[id number] INE RATIO (ACR) Today 01/25/2021 15:38 EST [...] documented in this encounter Results * URINE [id number]-[id number] RATIO (ACR) (01/25/2021 15:38 EST) Albumin, Urine 0.9 See Note mg/dL 2020 19:10 [facility] Comment: NOTE: Reference range not established Creatinine, Urine 137.7 See Note mg/dL 01/25/2021 19:10 [facility] Comment: NOTE: Reference range not established Lab Urine Albumin to Creatinine Ratio 7 <30 ??g/mg Creatinine 01/25/2021 19:10 [facility] Comment: Urine Albumin/Creatinine Ratio: Normal: <30 ug/mg Creatinine Moderately increased albuminuria: 30-300 ug/mg Creatinine Padmini increased albuminuria: >300 ug/mg Creatinine Urine URINE SPECIMEN COLLECTION, CLEAN CATCH / Unknown 01/25/2021 15:38 EST 01/25/2021 18:16 EST Suyapa Duarte MD CHEMISTRY & BLOOD GA S ORDERABLES Performing Organization Address City/[facility]/ZIP Co de Phone Number [facility] [address] [place] [address] * URIC ACID (01/25/2021 15:38 EST) Uric Acid 5.7 3.9 - 9.0 mg/dL 01/25/2021 19:40 EST [facility] Blood VENOUS BLOOD / Unknown 01/25/2021 15:38 EST 01/25/2021 18:16 EST Suyapa Duarte MD CHEMISTRY & BLOOD GA S ORDERABLES Performing Organization Address [facility] Number [facility] [address] [place] [address] * (ABNORMAL) VALPROIC ACID LEVEL (01/25/2021 15:38 EST) Valproic Acid 48(L) 50 - 100 ug/mL 01/25/2021 19:40 EST [facility] Blood VENOUS BLOOD / Unknown 01/25/2021 15:38 EST 01/25/2021 18:16 EST Suyapa Duarte MD CHEMISTRY & BLOOD GA S ORDERABLES Performing Organization Address City/[facility] Co de Phone Number [facility] [address] [place] [address] documented in this encounter Visit Diagnoses Diagnosis Unspecified convulsions (HCC-CMS) Type 2 diabetes mellitus without complications (HCC-CMS) Type II or unspecified type diabetes mellitus without mention of complication, not stated as uncontrolled Gout, unspecified documented in this encounter Care Teams Health Technician Relationship Specialty Start Date End Date Lucy Elizabeth MD [address] [place] [phone] PCP - General 09/28/08 03/08/21 Suyapa Duarte MD [address] [place] [phone] PCP - General Family Medicine - Primary Care 03/09/21 documented as of this encounter
--- OUTSIDE RECORDS SUMMARY | 2023-12-21 00:36 | XMS_ITS | Encounter Summary ---
Author Organization [facility] Address [address] [place] [address] Care Team Providers Care Retail Product Demo Specialist Name Role Phone Suyapa Duarte MD Primary Care Provider [phone] Reason for Visit * Reason Comments Fall [...] 1:07 EST - 03/09/2021 8:42 EST Emergency [facility] Emergency Department [address] [place], [place] [address] Priti Fischer, DO [address] [place] [address] Injury of head, initial encounter [...] 100 unit injection Inject into the muscle. Lwiemml-Jlwifnanw-Awhu [id number] mg Tab Take 2 Tabs by [...] Code Departure Means Destination Home or Self Retirement documented in this encounter ED Notes * [...] Destinee Velásquez RN - 03/09/2021 0444 EST [facility] stated that they did not have coverage to bring patient back to his apartment and [facility] was contacted. [facility] declined to transport patient because of his insurance and not being able to collect payment. Patient will wait in the ED until [facility] obtains coverage. MotherDesiree notified. * Patrizia Gee [...] [facility] Neurology Clinic [address] [place] [address] Scott Esquivel MD 130 [facility] [address] [place] [address] documented as of this encounter [...] REGARDING THIS REPORT PLEASE CALL [facility] AT [phone] Narrative 03/09/2021 3:00 EST PROCEDURE INFORMATION: Exam: [...] CONCERNS REGARDING THIS REPORT PLEASE CALL [facility] [phone] Priti Fischer DO [facility] ORDERABLE S documented in this encounter [...] mg), oral, NOW X1, 1 dose, On 1/5/22 at 0400, Routine 0341 (Given - Provid er: Destinee Velásquez RN) documented in this encounter Care Teams Retail Product Demo Specialist Relationship Specialty Start Date End Date Suyapa Duarte MD [address] [place] [phone] PCP - General Family Medicine - Primary Care 03/09/21 documented as of this encounter
--- OUTSIDE RECORDS SUMMARY | 2023-12-21 00:36 | XMS_ITS | Encounter Summary ---
Author Organization [facility] Address [address] [place] [address] Care Team Providers Care Director Nurses' Registry Name Role Phone Lucy Elizabeth MD Primary Care Provider [phone] Encounter Details Date Type Department Care Team (Late st Contact Info) Description 03/28/2019 Results Only [facility] [phone] Suyapa Duarte MD [address] [place] [phone] Social History Tobacco Use Types Packs/Day [...] Visit [facility] [address] [place], [place] [address] Scott Esquivel MD 130 [facility] [address] [place] [address] documented as of this encounter [...] 4.0 - 6.0 % 03/28/2019 12:50 EST [facility] Comment: > or =18 [...] Avg Glucose 235 mg/dL 0 12:50 EST [facility] 03/28/2019 9:15 EST 03/28/2019 11:14 EST Suyapa Duarte MD CHEMISTRY & BLOOD GA S ORDERABLES [facility] * VIT D, 25-HYDROXY - [facility] (03/28/2019 9:15 EST) VIT D, 25 HYDROXY - [facility] 77.6 30 - 100 ng/ml 03/28/2019 12:03 [facility] Comment: ? 25-Hydroxy D Total (D2+D3) ?Expected Values Deficient: ?<20 ng/ml Insufficient: ? 20- <30 ng/ml Sufficient: ? 30-100 ng/ml Potential intoxication: >100 ng/ml 03/28/2019 9:15 EST 03/28/2019 11:14 EST Suyapa Duarte MD CHEMISTRY & BLOOD GA S ORDERABLES Performing Organization Address [facility] Formerly [facility] Number [facility] * (ABNORMAL) MAGNESIUM (03/28/2019 9:15 EST) Magnesium 1.40(L) 1.7 - 2.8 mg/dL 03/28/2019 11:47 [facility] 03/28/2019 9:15 EST 03/28/2019 11:14 EST Suyapa Duarte MD CHEMISTRY & BLOOD GA S ORDERABLES Performing Organization Address [facility] [place] Co de Phone Number [facility] * (ABNORMAL) LIPID PROFILE (INCLUDES CHOLESTEROL, TRIGLYCERIDES, HDL, LDL) (03/28/2019 9:15 EST) Triglyceride 206 <150 mg/dL 03/28/2019 11:47 [facility] Comment: Adult: Normal: ?<150 mg/dl ? Borderline High: 150-199 mg/dl ? High: ?200-499 mg/dl ? Very High: >[id number] Cholesterol 130 <200 mg/dL 03/28/2019 11:47 [facility] Comment: Acceptable: ??<200 Borderline: ??200-239 High: ?> or = 240 Chol/HDL Ratio 3.0 0 - 5.0 03/28/2019 11:47 [facility] Comment: DESIRABLE RATIO IS LESS THAN 4.1 PATIENTS ARE CONSIDERED AT RISK: WOMEN RATIO >5 MEN RATIO >6 FASTING? - [facility] Yes 0 11:15 [facility] HDL 42 40 - 60 mg/dL 03/28/2019 11:47 [facility] Comment: ?? Reference Range Low: ? < 40 ??mg/dL Normal: ??40-60 mg/dL High: ?>= 60 mg/dL LDL CHOLESTEROL - [facility] 47(L) 60 - 100 mg/dL 03/28/2019 11:47 [facility] Non HDL Cholesterol 88 mg/dl 03/28/2019 11:47 [facility] Comment: Desirable: ?Less than 130 Borderline High: ??130-159 High: ? 160-189 Very High: ?Greater than or equal to 190 03/28/2019 9:15 EST 03/28/2019 11:14 EST Suyapa Duarte MD CHEMISTRY & BLOOD GA S ORDERABLES [facility] * (ABNORMAL) COMPREHENSIVE METABOLIC PANEL (CMP) (03/28/2019 9:15 EST) Albumin % 4.6 3.4 - 4.9 g/dL 03/28/2019 11:47 [facility] ALKALINE PHOSPHATASE - [facility] 70 38 - 126 U/L 03/28/2019 11:47 [facility] BILIRUBIN TOTAL 0.5 0.2 - 1.3 mg/dL 03/28/2019 11:47 [facility] BUN - [facility] 19 10 - 26 mg/dL 03/28/2019 11:47 [facility] CALCIUM - [facility] 10.3 8.5 - 10.5 mg/dL 03/28/2019 11:47 [facility] Chloride 97 96 - 110 mmol/L 03/28/2019 11:47 [facility] CO2 Total 28 21 - 32 mEq/L 03/28/2019 11:47 [facility] CREATININE 0.85 0.66 - 1.25 mg/dL 03/28/2019 11:47 [facility] eGFR >60 03/28/2019 11:47 [facility] Comment: Chronic renal impairment is defined as GFR <60 Multiply result by 1.210 for patients. Anion Gap 13 0 - 18 03/28/2019 11:47 [facility] GLUCOSE - [facility] 156(H) 70 - 100 mg/dL 03/28/2019 11:47 [facility] Potassium 3.9 3.5 - 5.0 mEq/L 03/28/2019 11:47 [facility] Sodium 138 136 - 145 mEq/L 03/28/2019 11:47 [facility] TOTAL PROTEIN - [facility] 7.5 6.2 - 8.2 gm/dL 03/28/2019 11:47 [facility] SGOT/AST - [facility] 29 17 - 59 U/L 03/28/2019 11:47 [facility] SGPT/ALT - [facility] 25 0 - 50 U/L 0 11:47 [facility] 03/28/2019 9:15 EST 03/28/2019 11:14 EST Suyapa Duarte MD CHEMISTRY & BLOOD GA S ORDERABLES [facility] * (ABNORMAL) COMPLETE BLOOD COUNT WITH DIFFERENTIAL (AUTO) (03/28/2019 9:15 EST) Gran # 5.0 2.2 - 8.85 10e3/uL 03/28/2019 11:36 [facility] BASO # - [facility] 0.05 0.01 - 0.11 10e/uL 03/28/2019 11:36 [facility] BASO % - [facility] 1 0 - 2 % 03/28/2019 11:36 [facility] EOS # - [facility] 0.10 0.03 - 0.61 10e3/ul 03/28/2019 11:36 [facility] EOS % - [facility] 1 0 - 5 % 03/28/2019 11:36 [facility] GRAN % - [facility] 46.9 40 - 80 % 03/28/2019 11:36 [facility] HEMATOCRIT - [facility] 45.0 39.5 - 50.2 % 03/28/2019 11:36 [facility] HEMOGLOBIN - [facility] 14.8 13.8 - 17.3 g/dl 03/28/2019 11:36 [facility] IG# - [facility] 0.04 0 - 0.7 10e3/uL 03/28/2019 11:36 [facility] IG% - [facility] 0.4 0 - 0.9 % 03/28/2019 11:36 [facility] LYMPH # - [facility] 4.7(H) 1.09 - 3.3 10e3/ul 03/28/2019 11:36 [facility] LYMPH% - [facility] 44.4(H) 20 - 40 % 03/28/2019 11:36 [facility] MEAN CORPUSCULAR HGB - [facility] 30.1 27.6 - 33.0 pg 03/28/2019 11:36 [facility] MEAN CORPUSCULAR HGB CONC - [facility] 32.9 32.8 - 36.4 g/dL 03/28/2019 11:36 [facility] MEAN CELL VOLUME - [facility] 91.6 81 - 95 fl 03/28/2019 11:36 [facility] MONO # - [facility] 0.7 0.1 - 0.8 10e3/uL 03/28/2019 11:36 [facility] MONO% - [facility] 6.9 0 - 12 % 03/28/2019 11:36 [facility] PLATELET COUNT 163 141 - 377 10e3/ul 03/28/2019 11:36 [facility] RED BLOOD COUNT - [facility] 4.91 4.36 - 5.78 10e3/ul 03/28/2019 11:36 [facility] RED CELL DISTRI WIDTH - [facility] 14.1 <14.2 % 03/28/2019 11:36 [facility] WHITE BLOOD COUNT - [facility] 10.6(H) 4.0 - 10.4 10e3/ul 03/28/2019 11:36 [facility] 03/28/2019 9:15 EST 03/28/2019 11:14 EST Suyapa Duarte MD HEMATOLOGY & PF4 ORD ERABLES [facility] documented in this encounter Visit Diagnoses Not on filedocumented in this encounter Care Teams Director Nurses' Registry Relationship Specialty Start Date End Date Lucy Elizabeth MD [address] [place] [phone] PCP - General 09/28/08 03/08/21 documented as of this encounter
--- OUTSIDE RECORDS SUMMARY | 2023-12-21 00:36 | XMS_ITS | Encounter Summary ---
Author Organization [facility] Address [address] [place] [address] Care Team Providers Care Cardiac Cath Tech Name Role Phone Lucy Elizabeth MD Primary Care Provider [phone] Encounter Details Date Type Department Care Team [...] Notes * Yoko Scott, PT - 06/25/2019 7240 EDT Outpatient Rehab Plan of Care Assessment [...] but he seemed satisfied with the comfort. Circus Agent Goals: met ?? Patient independent with functions [...] Info) Description 01/23/2024 16:00 EST Office Visit [facility] [address] [place] [phone] Scott sEquivel MD 130 [facility]- [address] [place] [phone] documented as of this encounter Visit Diagnoses Not on filedocumented in this encounter Care Teams Cardiac Cath Tech Relationship Specialty Start Date End Date Lucy Elizabeth MD [address] [place] [phone] PCP - General 09/28/08 03/08/21 documented as of this encounter
--- OUTSIDE RECORDS SUMMARY | 2023-12-21 00:36 | XMS_ITS | Encounter Summary ---
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[facility]) Cora Foster MD [address] [place] [phone] Referral ID Status Reason Start Date Expiration Date Visits Requested Visits Authorized [id number] Specialty Report Received Medication Prior Authorization 0 [...] To Contact Diagnoses 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[facility]) Cora Foster MD [address] [place] [phone] Referral ID Status Reason Start Date Expiration Date Visits Requested Visits Authorized [id number] Specialty Report Received Medication Prior Authorization 08/06/2019 1 1 Encounter Details Date Type Department Care Team (Latest Contact Info) Description 10/29/2019 11:30 EDT Procedure visit [facility] [place] [address] Cora Foster MD [address] [place] [phone] Spasticity (Primary Dx); Spastic quadriplegic cerebral palsy [...] his home through home health aides from [facility]. Every morning he gets assist with breakfast, bathing, dressing and intermittent nursing as needed. Developmental services provide 30 hours/week for appointments cleaning and food support. On the weekends he gets 2 to 3 hours from [place] [facility]. This will be his first injections with me at this office. Patient Active Problem List Diagnosis ??? 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 Past [...] on phone: None Gets together: None Attends pentecostal service: None Active member of club or [...] Type A (BOTOX) 100 unit injection ??? Poijfbu-Ftumlscmn-Hkqv 333-133-5 mg Tab ??? celecoxib (CELEBREX) 100 [...] having malfunction issues. Last injections while at [facility]: 05/10/2016-Botox 400, 200 distributed to each posterior thigh equallythrough M/L hamstrings Plan: Encounter Diagnoses Name Primary? Spasticity Yes ??? 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 Ambulatory [...] with speech recognition software or keyboard database consultant techniques. Minor irregularities or keyboarding misprints may be present. 20 minutes [id number]-cc-[id number] total time, 15 minutes in discussion / ed. with patient on above issues as delineated in the assessment and plan in addition to Botox procedure. 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
--- OUTSIDE RECORDS SUMMARY | 2023-12-21 00:37 | XMS_ITS | Encounter Summary ---
Author Organization [facility] Address [address] [place] [address] Care Team Providers Care Market Research Analyst Name Role Phone Lucy Elizabeth MD Primary Care Provider [phone] Encounter Details Date Type Department Care Team (Late st Contact Info) Description 05/25/2017 Historical Results Only [facility] - Main [place] [address] [place] [phone] Suyapa Duarte MD [address] [place] [phone] Social History Tobacco Use Types Packs/Day [...] Description 01/23/2024 16:00 EST Office Visit [facility] [address] [place] [address] Scott Esquivel MD 130 [facility] [address] [place] [address] documented as of this encounter Procedures Procedure Name Priority Date/Time Associated Diagnosis Comments POCT CHOLESTEROL LDL ([facility]) Routine 05/25/2017 14:51 EDT documented in this encounter Results * (ABNORMAL) POCT CHOLESTEROL LDL ([facility]) (05/25/2017 14:51 EDT) LDL CHOLESTEROL - [facility] 53(L) 60 - 100 MG/DL 05/25/2017 14:[address] [facility] 05/25/2017 14:5 1 EDT 05/25/2017 14:51 EDT Suyapa Duarte MD POINT OF CARE TEST O RDERABLES [facility] documented in this encounter Visit Diagnoses Not on filedocumented in this encounter Care Teams Market Research Analyst Relationship Specialty Start Date End Date Lucy Elizabeth MD [address] [place] [phone] PCP - General 09/28/08 03/08/21 documented as of this encounter
--- OUTSIDE RECORDS SUMMARY | 2023-12-21 00:37 | XMS_ITS | Encounter Summary ---
Author Organization [facility] Address [address] [place] [address] Care Team Providers Care Duralumin Metalworker Name Role Phone Lucy Elizabeth MD Primary Care Provider [phone] Encounter Details Date Type Department Care Team (Late st Contact Info) Description 05/25/2017 Historical Results Only [facility] - Main [place] [address] [place] [address] Suyapa Duarte MD [address] [place] [phone] Social History Tobacco Use Types Packs/Day [...] Info) Description 01/23/2024 16:00 EST Office Visit [facility] [address] [place] [address] Scott Esquivel MD [address] [place], [place] [address] [address] [place] [phone] documented as of this encounter Procedures Procedure Name Priority Date/Time Associated Diagnosis Comments MAGNESIUM POC - CV Routine 05/25/2017 14:51 EDT documented in this encounter Results * MAGNESIUM POC - [facility] (05/25/2017 14:51 EDT) Magnesium 1.90 1.60 - 2.30 MG/DL 05/25/2017 14:51 EDT [facility] 05/25/2017 14:5 1 EDT 05/25/2017 14:51 EDT Suyapa Duarte MD CHEMISTRY & BLOOD GA S ORDERABLES [facility] documented in this encounter Visit Diagnoses Not on filedocumented in this encounter Care Teams Duralumin Metalworker Relationship Specialty Start Date End Date Lucy Elizabeth MD [address] [place] [phone] PCP - General 09/28/08 03/08/21 documented as of this encounter
--- OUTSIDE RECORDS SUMMARY | 2023-12-21 00:37 | XMS_ITS | Encounter Summary ---
Author Organization [facility] Address [address] [place] [address] Care Team Providers Care Parimutuel Cashier Name Role Phone Lucy Elizabeth MD Primary Care Provider [phone] Encounter Details Date Type Department Care Team (Late st Contact Info) Description 09/25/2016 Historical Results Only [facility] - Main [place] [address] [place] [phone] Lucy Elizabeth MD [address] [place] [phone] Social History Tobacco Use Types Packs/Day [...] Description 01/23/2024 16:00 EST Office Visit [facility] [address] [place] [address] Scott Esquivel MD [address] [place] [address] [address] [place] [phone] documented as of this encounter Procedures Procedure Name Priority Date/Time Associated Diagnosis Comments COMPREHENSIVE METABOLIC PANEL (CMP) Routine 09/25/2016 8:30 EDT documented in this encounter Results * (ABNORMAL) COMPREHENSIVE METABOLIC PANEL (CMP) (09/25/2016 8:30 EDT) Albumin % 4.2 3.4 - 5.0 g/dL 09/25/2016 10:41 [facility] ALKALINE PHOSPHATASE - [facility] 75 42 - 122 U/L 09/25/2016 10:41 [facility] BILIRUBIN TOTAL 0.2 0.0 - 1.0 mg/dL 09/25/2016 10:41 [facility] BUN - [facility] 15 7 - 18 mg/dL 09/25/2016 10:41 [facility] CALCIUM - [facility] 9.4 8.5 - 10.1 mg/dL 09/25/2016 10:41 [facility] Chloride 100 98 - 107 mEq/L 09/25/2016 10:41 [facility] CO2 Total 25 21 - 32 mEq/L 09/25/2016 10:41 [facility] CREATININE 1.01 0.5 - 1.3 mg/dL 09/25/2016 10:41 [facility] eGFR >60 09/25/2016 10:41 [facility] Comment: Chronic renal impairment is defined as GFR <60 Multiply result by 1.210 for patients. Anion Gap 13 5 - 15 09/25/2016 10:41 [facility] GLUCOSE - [facility] 113(H) 70 - 100 mg/dL 09/25/2016 10:41 [facility] Potassium 4.3 3.5 - 5.0 mEq/L 09/25/2016 10:41 [facility] Sodium 138 135 - 145 mEq/L 09/25/2016 10:[address] [facility] TOTAL PROTEIN - [facility] 7.9 6.4 - 8.2 gm/dl 09/25/2016 10:[address] [facility] SGOT/AST - [facility] 20 10 - 37 U/L 09/25/2016 10:[address] [facility] SGPT/ALT - [facility] 28 12 - 78 U/L 09/25/2016 10:[address] [facility] 09/25/2016 8:30 EDT 09/25/2016 9:34 EDT Lucy Elizabeth MD CHEMISTRY & BLOOD GA S ORDERABLES [facility] documented in this encounter Visit Diagnoses Not on filedocumented in this encounter Care Teams Parimutuel Cashier Relationship Specialty Start Date End Date Lucy Elizabeth MD [address] [place] [phone] PCP - General 09/28/08 03/08/21 documented as of this encounter
--- OUTSIDE RECORDS SUMMARY | 2023-12-21 00:37 | XMS_ITS | Encounter Summary ---
Author Organization [facility] Address [address] [place] [address] Care Team Providers Care Wood Tile Installation Helper Name Role Phone Lucy Elizabeth MD Primary Care Provider [phone] Reason for Referral * Consult (Routine/Next Available) - Specialty Report Received Specialty Diagnoses / Procedures Referred By Rubina perkins Referred To Contact Diagnoses 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HCC-CMS) Naga Melendez MD [address] [place] [phone] Referral ID Status Reason Start Date Expiration Date Visits Requested Visits Authorized [id number] Specialty Report Received Specialty Services Required 11/10/2015 1 1 Question Answer Medication to be Prior Authorized: Botox for next visit Comments Botox 400 units Encounter Details Date Type Department Care Team (Late st Contact Info) Description 11/10/2015 Orders Only [facility] & [place] [address] [place] [address] Naga Melendez MD [address] [place] [phone] 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CMS-HCC) (Primary Dx) [...] Info) Description 01/23/2024 16:00 EST Office Visit [facility] Neu[facility] Clinic [address] [place] [address] Scott Esquivel MD [address] [facility]- [address] [place] [phone] Scheduled Referrals Name Type Priority Associated Diagnoses Orde r Schedule AMB MEDICATION PRIOR AUTHORIZATION Outpatient Referral Routine 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CMS-HCC) Ordered: 11/10/2015 documented as of this encounter Visit Diagnoses Diagnosis 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HCC-CMS)- Primary Congenital quadriplegia documented in this encounter Care Teams Wood Tile Installation Helper Relationship Specialty Start Date End Date Lucy Elizabeth MD [address] [place] [phone] PCP - General 09/28/08 03/08/21 documented as of this encounter
--- OUTSIDE RECORDS SUMMARY | 2023-12-21 00:37 | XMS_ITS | Encounter Summary ---
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[facility]) Naga Melendez MD [address] [facility] [address] [place] [address] Naga Melendez MD [address] [place] [address] Referral ID Status Reason Start Date Expiration Date Visits Requested Visits Authorized [id number] Specialty Report Received Specialty Services Required 4 06/19/2014 4 4 Encounter Details Date Type Department Care Team (Latest Contact Info) Description 03/23/2014 13:30 EST Office Visit [facility] Rehabilitation Therapy - [address] [address] Naga Melendez MD [address] [place] [phone] 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 [address] [place] [address] Discharge Instructions after Botulinum Toxin Injections Diet [...] for any questions you may have at [phone] x 2. The office is open Sunday-Sunday from 8:00 am to 5:00pm. On weekends or evenings, if you have a serious problem, please call your Manager Bank, Primary CarePhysician or go to your local Emergency Room. If for any reason a follow-up appointment was not provided or you need to reschedule an appointment, please call our office, the [facility] ([phone] or [phone]) or the [facility] ([phone] or [phone]) if that is where you are seen. 410ss documented in this encounter Discharge Disposition Disposition Code Departure Means Destination Auto Discharge documented in this encounter Progress Notes * Viri Sung RN - 03/23/2014 1403 EST Botulinum toxin Lot #: [id number] Botulinum toxin expiration date: Oct 2016 Botulinum toxin [facility] # 3511-2800-03 Total Botulinum toxin units injected: 400 Total [...] Office Visit [facility] Neurology Clinic [address] [place] [address] Scott Esquivel MD [address] [place] [address] [address] [place] [id number] Scheduled Referrals Name Type Priority Associated Diagnoses Orde r Schedule AMB MEDICATION PRIOR AUTHORIZATION Outpatient Referral Routine 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 added in this encounter Care Teams Credit Operations Processor Relationship Specialty Start Date End Date Lucy Elizabeth MD [address] [place] [phone] PCP - General 09/28/08 03/08/21 documented as of this encounter
--- OUTSIDE RECORDS SUMMARY | 2023-12-21 00:37 | XMS_ITS | Encounter Summary ---
Author Organization [facility] Address [address] [place] [address] Care Team Providers Care Swift Tender Name Role Phone Lucy Elizabeth MD Primary Care Provider [phone] Encounter Details Date Type Department Care Team (Late st Contact Info) Description 05/25/2017 Historical Results Only [facility] - Main [place] [address] [place] [address] Suyapa Duarte MD [address] [place] [phone] Social History Tobacco Use Types Packs/Day [...] 01/23/2024 16:00 EST Office Visit [facility] Neurology Clinic [address] [place] [address] Scott Esquivel MD [address] [facility] [address] [place] [address] documented as of this encounter Procedures Procedure Name Priority Date/Time Associated Diagnosis Comments GLYCOHEMOGLOBIN POC - [facility] Routine 05/25/2017 14:51 EDT documented in this encounter Results * (ABNORMAL) GLYCOHEMOGLOBIN POC - CV (05/25/2017 14:51 EDT) Hemoglobin A1c 8.4(H) 4.0 - 6.0 % 05/25/2017 14:51 EDT [facility] AVG CALCULATED GLUCOSE - [facility] 200(H) 60 - 115 MG/DL 05/25/2017 14:51 EDT [facility] 05/25/2017 14:5 1 EDT 05/25/2017 14:51 EDT Suyapa Duarte MD CHEMISTRY & BLOOD GA S ORDERABLES [facility] documented in this encounter Visit Diagnoses Not on filedocumented in this encounter Care Teams Swift Tender Relationship Specialty Start Date End Date Lucy Elizabeth MD [address] [place] [phone] PCP - General 09/28/08 03/08/21 documented as of this encounter
--- OUTSIDE RECORDS SUMMARY | 2023-12-21 00:37 | XMS_ITS | Encounter Summary ---
Author Organization [facility] Address [address] [place] [address] Care Team Providers Care Industrial Conveyor Belt Repairer Name Role Phone Lucy Elizabeth MD Primary Care Provider [phone] Reason for Referral * Consult (Routine/Next Available) - Specialty Report Received Specialty Diagnoses / Procedures Referred By Rubina perkins Referred To Contact Diagnoses 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[facility]) Naga Melendez MD [address] [place] [address] Referral ID Status Reason Start Date Expiration Date Visits Requested Visits Authorized [id number] Specialty Report Received Specialty Services Required 10/26/2014 1 1 Question Answer Medication to be Prior Authorized: Botox for next visit. Comments Botox 400 units Reason for Visit * Reason Comments Botox Injection Encounter Details Date Type Department Care Team (Latest Contact Info) Description 10/26/2014 11:30 EDT Office Visit [facility] Physical Medicine & Rehabilitation - [address] [place], [place] [phone] Naga Melendez MD [address] [place] [address] 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[facility]) (Primary Dx) Discharge Disposition: Auto Discharge [...] Medicine and Rehabilitation Naga Melendez M.D. [address] [place] [address] Discharge Instructions after Botulinum Toxin Injections Diet [...] for any questions you may have at [phone] x 2. The office is open Sunday-Sunday from 8:00 am to 5:00pm. On weekends or evenings, if you have a serious problem, please call your Geothermal Technician, Primary CarePhysician or go to your local Emergency Room. If for any reason a follow-up appointment was not provided or you need to reschedule an appointment, please call our office, the [facility] ([phone] or [phone]) or the [facility] ([phone] or [phone]) if that is where you are seen. 06/12ss documented in this encounter Discharge Disposition Disposition Code Departure Means Destination Auto Discharge documented in this encounter Progress Notes * Naga Melendez MD - 10/26/2014 0723 EDT Botulinum Toxin Injection Procedure Note Pre-Procedure [...] 10/26/2014 1142 EDT Botulinum toxin Lot #: [id number] Botulinum toxin expiration date: Botulinum toxin [facility] # 8293-8778-94 Total Botulinum toxin units injected: 400 Total Botulinum toxin units wasted: 0 documented in this encounter Plan of Treatment Upcoming Encounters Date Type Department Care Team (Late st Contact Info) Description 01/23/2024 16:00 EST Office Visit [facility] Neurology Clinic [address] [place] [address] Scott Esquivel MD [address] [facility] [address] [place] [address] Scheduled Referrals Name Type Priority Associated Diagnoses Orde r Schedule AMB MEDICATION PRIOR AUTHORIZATION Outpatient Referral Routine 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[facility]) Ordered: 10/26/2014 documented as of this encounter Visit Diagnoses Diagnosis 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[facility])- Primary Congenital quadriplegia documented in this encounter Care Teams Industrial Conveyor Belt Repairer Relationship Specialty Start Date End Date Lucy Elizabeth MD [address] [place] [phone] PCP - General 09/28/08 03/08/21 documented as of this encounter
--- OUTSIDE RECORDS SUMMARY | 2023-12-21 00:37 | XMS_ITS | Encounter Summary ---
Author Organization [facility] Address [address] [place] [address] Care Team Providers Care Tennis Ball Cover Cementer Name Role Phone Lucy Elizabeth MD Primary Care Provider [phone] Encounter Details Date Type Department Care Team (Late st Contact Info) Description 09/25/2016 Historical Results Only [facility] - Main [place] [address] [place] [address] Lucy Elizabeth MD [address] [place] [phone] Social History Tobacco Use Types Packs/Day [...] Info) Description 01/23/2024 16:00 EST Office Visit [facility] Neurology Clinic [address] [place] [address] Scott Esquivel MD [address] [place] [address] [address] [place] [address] documented as of this encounter Procedures Procedure Name Priority Date/Time Associated Diagnosis Comments URIC ACID Routine 09/25/2016 8:30 EDT HEMOGLOBIN A1C Routine 09/25/2016 8:30 EDT documented in this encounter Results * (ABNORMAL) HEMOGLOBIN A1C (09/25/2016 8:30 EDT) Pathologist [facility] Hemoglobin A1c 6.3(H) 4.0 - 6.0 % 09/25/2016 11:17 EDT [facility] Est Avg Glucose 134 mg/dL 7 11:17 EDT [facility] 09/25/2016 8:30 EDT 09/25/2016 9:34 EDT Lucy Elizabeth MD CHEMISTRY & BLOOD GA S ORDERABLES [facility] * URIC ACID (09/25/2016 8:30 EDT) Pathologist [facility] URIC ACID - [facility] 5.5 2.6 - 7.2 mg/dl 09/25/2016 10:41 EDT [facility] 09/25/2016 8:30 EDT 09/25/2016 9:34 EDT Lucy Elizabeth MD CHEMISTRY & BLOOD GA S ORDERABLES [facility] documented in this encounter Visit Diagnoses Not on filedocumented in this encounter Care Teams Tennis Ball Cover Cementer Relationship Specialty Start Date End Date Lucy Elizabeth MD [address] [place] [phone] PCP - General 09/28/08 03/08/21 documented as of this encounter
--- OUTSIDE RECORDS SUMMARY | 2023-12-21 00:37 | XMS_ITS | Encounter Summary ---
Author Organization [facility] Address [address] [place] [address] Care Team Providers Care Operations Officer Trust Department Name Role Phone Lucy Elizabeth MD Primary Care Provider [phone] Reason for Visit * Reason Onset Date Comments DME 01/07/2014 power wheelchair maintenance/replacement of footrest Encounter Details Date Type Department Care Team (Late st Contact Info) Description 01/07/2014 Telephone [facility] Rehabilitation Therapy - [address] [phone] Naga Melendez MD [address] [place] [address] [address] [place] [address] DME (power wheelchair maintenance/replaceme nt [...] done. Please mail to parents - [facility] (current [facility] address is correct). Malena Bermudez 01/07/2014 8:32 documented in this encounter Plan of Treatment Upcoming Encounters Date Type Department Care Team (Late st Contact Info) Description 01/23/2024 16:00 EST Office Visit [facility] Neurology Clinic [address] [place] [address] Scott Esquivel MD [address] [facility] [address] [place] [address] documented as of this encounter Visit Diagnoses Not on filedocumented in this encounter Care Teams Operations Officer Trust Department Relationship Specialty Start Date End Date Lucy Elizabeth MD [address] [place] [phone] PCP - General 09/28/08 03/08/21 documented as of this encounter
--- OUTSIDE RECORDS SUMMARY | 2023-12-21 00:37 | XMS_ITS | Encounter Summary ---
Author Organization [facility] Address [address] [place] [address] Care Team Providers Care Sample Stitcher Name Role Phone Lucy Elizabeth MD Primary Care Provider [phone] Reason for Visit * Reason Onset Date Comments Appointment Related 11/25/2018 Encounter Details Date Type Department Care Team (Late st Contact Info) Description 11/25/2018 Telephone [facility] Rehabilitation Therapy - [address] [phone] Therapy, Physical Appointment Related Social History Tobacco [...] [facility] Neurology Clinic [address] [place] [address] Scott Esquivel MD [address] [facility] [address] [place] [address] documented as of this encounter Visit Diagnoses Not on filedocumented in this encounter Care Teams Sample Stitcher Relationship Specialty Start Date End Date Lucy Elizabeth MD [address] [place] [phone] PCP - General 09/28/08 03/08/21 documented as of this encounter
--- OUTSIDE RECORDS SUMMARY | 2023-12-21 00:37 | XMS_ITS | Encounter Summary ---
Author Organization [facility] Address [address] [place] [address] Care Team Providers Care Spray Painter Name Role Phone Lucy Elizabeth MD Primary Care Provider [phone] Encounter Details Date Type Department Care Team (Late st Contact Info) Description 11/22/[address] [facility] - Main [place] [address] [place] [address] Suyapa Duarte MD [address] [place] [phone] Social History Tobacco Use Types Packs/Day [...] Description 01/23/2024 16:[address] [facility] Neurology Clinic [address] [place] [address] Scott Esquivel MD [address] [facility] [address] [place] [address] documented as of this encounter Procedures Procedure Name Priority Date/Time Associated Diagnosis Comments MAGNESIUM Routine 11/22/2017 8:25 EDT documented in this encounter Results * MAGNESIUM (11/22/2017 8:25 EDT) Magnesium 1.80 1.7 - 2.8 mg/dL 11/22/2017 13:33 EDT [facility] 11/22/2017 8:25 EDT 11/22/2017 12:04 EDT Narrative [facility] - 11/27/2017 6:14 EDT AOT: 11/27/17 0606: LIPID Suyapa Duarte MD CHEMISTRY & BLOOD GA S ORDERABLES [facility] documented in this encounter Visit Diagnoses Not on filedocumented in this encounter Care Teams Spray Painter Relationship Specialty Start Date End Date Lucy Elizabeth MD [address] [place] [phone] PCP - General 09/28/08 03/08/21 documented as of this encounter
--- OUTSIDE RECORDS SUMMARY | 2023-12-21 00:37 | XMS_ITS | Encounter Summary ---
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[facility]) Naga Melendez MD [address] [place] [address] Referral ID Status Reason Start Date Expiration Date Visits Requested Visits Authorized [id number] Specialty Report Received Specialty Services Required 6 1 1 Encounter Details Date Type Department Care Team (Latest Contact Info) Description 02/10/2016 14:30 EST Office Visit [facility] Physical Medicine & Rehabilitation - [address] [place], [place] [phone] Naga Melendez MD [address] [place] [address] [phone] 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[facility]) (Primary Dx) [...] 02/10/2016 1430 EST Botulinum toxin Lot #: [id number] Botulinum toxin expiration date: AUG 2018 Botulinum toxin [facility] # [id number] Total Botulinum toxin units injected: 400 Total [...] Info) Description 01/23/2024 16:00 EST Office Visit [facility] Neurology Clinic [address] [place] [address] Scott Esquivel MD 130 [facility] [address] [place] [address] documented as of this encounter Visit Diagnoses Diagnosis 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[facility])- Primary Congenital quadriplegia documented in this encounter Historical Medications * This list may reflect changes made after this encounter. Medication Sig Dispensed Refills Start Date End Date botulinum toxin Type A (BOTOX) 100 unit injection Inject into the muscle. added in this encounter Care Teams Human Resources Recruiter Relationship Specialty Start Date End Date Lucy Elizabeth MD [address] [place] [phone] PCP - General 09/28/08 03/08/21 documented as of this encounter
--- OUTSIDE RECORDS SUMMARY | 2023-12-21 00:37 | XMS_ITS | Encounter Summary ---
Author Organization [facility] Address [address] [place] [address] Care Team Providers Care Rug Dyer Helper Name Role Phone Lucy Elizabeth MD Primary Care Provider Encounter Details Date Type Department Care Team (Late st Contact Info) Description 05/23/2018 Historical Results Only [facility] - Main [place] [address] [place] [address] Lucy Elizabeth MD [address] [place] [phone] Social History Tobacco Use Types Packs/Day [...] [facility] Neurology Clinic [address] [place] [address] Scott Esquivel MD [address] [place] [address] [address] [place] [address] documented as of this encounter Procedures Procedure Name Priority Date/Time Associated Diagnosis Comments HEMOGLOBIN A1C Routine 05/23/2018 10:00 EDT documented in this encounter Results * (ABNORMAL) HEMOGLOBIN A1C (05/23/2018 10:00 EDT) Hemoglobin A1c 7.5(H) 4.0 - 6.0 % 05/23/2018 13:05 EDT [facility] Est Avg Glucose 169 mg/dL 9 13:05 EDT [facility] 05/23/2018 10:0 0 EDT 05/23/2018 10:50 EDT Lucy Elizabeth MD CHEMISTRY & BLOOD GA S ORDERABLES Performing Organization Address City/State/[facility] Co de Phone Number [facility] documented in this encounter Visit Diagnoses Not on filedocumented in this encounter Care Teams Rug Dyer Helper Relationship Specialty Start Date End Date Lucy Elizabeth MD [address] [place] [phone] PCP - General 09/28/08 03/08/21 documented as of this encounter
--- OUTSIDE RECORDS SUMMARY | 2023-12-21 00:37 | XMS_ITS | Encounter Summary ---
Author Organization [facility] Address [address] [place] [address] Care Team Providers Care Ply Bander Name Role Phone Lucy Elizabeth MD Primary Care Provider [phone] Encounter Details Date Type Department Care Team (Late st Contact Info) Description 09/25/2016 Historical Results Only [facility] - Main [place] [address] [place] [address] Lucy Elizabeth MD [address] [place] [phone] Social History Tobacco Use Types Packs/Day [...] Info) Description 01/23/2024 16:00 EST Office Visit [facility] Neurology Clinic [address] [place] [address] Scott Esquivel MD [address] [place] [address] [address] [place] [address] documented as of this encounter Procedures Procedure Name Priority Date/Time Associated Diagnosis Comments TSH Routine 09/25/2016 8:30 EDT documented in this encounter Results * TSH (09/25/2016 8:30 EDT) Pathologist [facility] THYROID STIM HORMONE - [facility] 0.76 0.35 - 5.50 uIU/mL 09/25/2016 10:37 EDT [facility] 09/25/2016 8:30 EDT 09/25/2016 9:34 EDT Lucy Elizabeth MD CHEMISTRY & BLOOD GA S ORDERABLES [facility] documented in this encounter Visit Diagnoses Not on filedocumented in this encounter Care Teams Ply Bander Relationship Specialty Start Date End Date Lucy Elizabeth MD [address] [place] [phone] PCP - General 09/28/08 03/08/21 documented as of this encounter
--- OUTSIDE RECORDS SUMMARY | 2023-12-21 00:37 | XMS_ITS | Encounter Summary ---
Author Organization [facility] Address [address] [place] [address] Care Team Providers Care Pearl Maker Name Role Phone Lucy Elizabeth MD Primary Care Provider [phone] Reason for Referral * Consult (Routine/Next Available) - Specialty Report Received Specialty Diagnoses / Procedures Referred By Contac t Referred To Contact Diagnoses 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[facility]) Naga Melendez MD [address] [place] [address] Referral ID Status Reason Start Date Expiration Date Visits Requested Visits Authorized [id number] Specialty Report Received Specialty Services Required 02/09/2015 1 1 Question Answer Medication to be Prior Authorized: Botox for next time. Comments Botox 400 units Reason for Visit * Reason Comments Botox Injection * Consult (Routine/Next Available) - Specialty Report Received Specialty Diagnoses / Procedures Referred By Contac t Referred To Contact Diagnoses 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[facility]) Naga Melendez MD [address] [place] [address] Referral ID Status Reason Start Date Expiration Date Visits Requested Visits Authorized [id number] Specialty Report Received Specialty Services Required 10/26/2014 1 1 Encounter Details Date Type Department Care Team (Latest Contact Info) Description 02/09/2015 13:30 EST [facility] Medicine & Rehabilitation [place] [address] [place] [address] Naga Melendez MD [address] [place] [address] [address] [place], [place] [id number] 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HCC-CMS) (Primary Dx) Social History [...] Physical Medicine and Rehabilitation Naga Melendez M.D. [address] [place] [address] Discharge Instructions after Botulinum Toxin Injections Diet [...] for any questions you may have at [phone] x 2. The office is open Sunday-Sunday from 8:00 am to 5:00pm. On weekends or evenings, if you have a serious problem, please call your Substation Operator Conversion, Primary CarePhysician or go to your local Emergency Room. If for any reason a follow-up appointment was not provided or you need to reschedule an appointment, please call our office, the [facility] ([phone] or [phone]) or the [facility] ([phone] or [phone]) if that is where you are seen. 410ss documented in this encounter Progress Notes * José Luis Rm RN - 02/09/2015 1358 EST Botulinum toxin Lot #: [id number] Botulinum toxin expiration date: June2017 Botulinum toxin [facility] # 1329-0787-46 Total Botulinum toxin units injected: 400 Total [...] Visit [facility] Clinic [address] [place] [address] Scott Esquivel MD [address] [place] [address]- [address] [place] [address] Scheduled Referrals Name Type Priority Associated Diagnoses Orde r Schedule AMB MEDICATION PRIOR AUTHORIZATION Outpatient Referral Routine 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[facility]) Ordered: 02/09/2015 documented as of this encounter Visit Diagnoses Diagnosis 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[facility])- Primary Congenital quadriplegia documented in this encounter [...] daily. added in this encounter Care Teams Pearl Maker Relationship Specialty Start Date End Date Lucy Elizabeth MD [address] [place] [phone] PCP - General 09/28/08 03/08/21 documented as of this encounter
--- OUTSIDE RECORDS SUMMARY | 2023-12-21 00:37 | XMS_ITS | Encounter Summary ---
Author Organization [facility] Address [address] [place] [address] Care Team Providers Care Nicu Rn Name Role Phone Lucy Elizabeth MD Primary Care Provider [phone] Encounter Details Date Type Department Care Team (Latest Contact Info) Description 11/27/2018 8:40 EDT - 11/28/2018 23:59 EDT Hospital Encounter [address] [address] Lucy Elizabeth MD [address] [place] [phone] Discharge Disposition: Home or Self Care [...] 100 unit injection Inject into the muscle. Vijsbfp-Ibvoxwzhj-Rxpj 333-133-5 mg Tab Take 2 Tabs by [...] Office Visit [facility] Clinic [address] [place] [address] Scott Esquivel MD [address] [facility] [address] [place] [address] documented as of this encounter Visit Diagnoses Not on filedocumented in this encounter Care Teams Nicu Rn Relationship Specialty Start Date End Date Lucy Elizabeth MD [address] [place] [phone] PCP - General 09/28/08 03/08/21 documented as of this encounter
--- OUTSIDE RECORDS SUMMARY | 2023-12-21 00:37 | XMS_ITS | Encounter Summary ---
Author Organization [facility] Address [address] [place] [address] Care Team Providers Care Agricultural Sciences Professor Name Role Phone Lucy Elizabeth MD Primary Care Provider [phone] Encounter Details Date Type Department Care Team (Late st Contact Info) Description 11/22/2017 Historical Results Only [facility] - Main [place] [address] [place] [address] Suyapa Duarte MD [address] [place] [phone] Social History Tobacco Use Types Packs/Day [...] Info) Description 01/23/2024 16:00 EST Office Visit [facility] Neu[facility] Clinic [address] [place] [address] Scott Esquivel MD [address] [place] [address] [address] [place] [address] documented as of this encounter Procedures Procedure Name Priority Date/Time Associated Diagnosis Comments TSH Routine 11/22/2017 8:25 EDT HEMOGLOBIN A1C Routine 11/22/2017 8:25 EDT VALPROIC ACID LEVEL Routine 11/22/2017 8 :25 EDT documented in this encounter Results * HEMOGLOBIN A1C (11/22/2017 8:25 EDT) Pathologist [facility] Hemoglobin A1c 5.6 4.0 - 6.0 % 11/22/2017 20:41 EDT [facility] Est Avg Glucose 114 mg/dL 8 20:41 EDT [facility] 11/22/2017 8:25 EDT 11/22/2017 12:04 EDT Suyapa Duarte MD CHEMISTRY & BLOOD GA S ORDERABLES [facility] * (ABNORMAL) TSH (11/22/2017 8:25 EDT) [facility] THYROID STIM HORMONE - [facility] 0.22(L) 0.46 - 4.68 uIU/ml 11/22/2017 13:59 EDT [facility] Comment: The results of this assay can be falsely lowered due to the consumption of Biotin. 11/22/2017 8:25 EDT 11/22/2017 12:04 EDT Suyapa Duarte MD CHEMISTRY & BLOOD GA S ORDERABLES [facility] * VALPROIC ACID LEVEL (11/22/2017 8:25 EDT) [facility] Valproic Acid 77.5 50 - 100 ug/mL 11/22/2017 13:33 EDT [facility] Comment: Therapeutic Range: 50-100 ug/mL Toxic: ??>120 ug/mL 11/22/2017 8:25 EDT 11/22/2017 12:04 EDT Narrative [facility] - 11/27/2017 6:14 EDT AOT: 11/27/17 0606: LIPID Suyapa Duarte MD CHEMISTRY & BLOOD GA S ORDERABLES [facility] documented in this encounter Visit Diagnoses Not on filedocumented in this encounter Care Teams Agricultural Sciences Professor Relationship Specialty Start Date End Date Lucy Elizabeth MD [address] [place] [phone] PCP - General 09/28/08 03/08/21 documented as of this encounter
--- OUTSIDE RECORDS SUMMARY | 2023-12-21 00:37 | XMS_ITS | Encounter Summary ---
Author Organization [facility] Address [address] [place] [address] Care Team Providers Care Test And Balance Engineer Name Role Phone Lucy Elizabeth MD Primary Care Provider [phone] Reason for Referral * Consult (Routine/Next Available) - Specialty Report Received Specialty Diagnoses / Procedures Referred By Contac t Referred To Contact Diagnoses 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[facility]) Naga Melendez MD [address] [place] [address] Referral ID Status Reason Start Date Expiration Date Visits Requested Visits Authorized [id number] Specialty Report Received Specialty Services Required 05/11/2015 1 1 Question Answer Medication to be Prior Authorized: Follow up in 3 months Comments Botox 400 units Reason for Visit * Reason Comments Botox Injection * Consult (Routine/Next Available) - Specialty Report Received Specialty Diagnoses / Procedures Referred By Contac t Referred To Contact Diagnoses 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[facility]) Naga Melendez MD [address] [place] [address] Referral ID Status Reason Start Date Expiration Date Visits Requested Visits Authorized [id number] Specialty Report Received Specialty Services Required 02/09/2015 1 1 Encounter Details Date Type Department Care Team (Latest Contact Info) Description 05/11/2015 13:30 EST Office Visit [facility] Physical Medicine & Rehabilitation - [place] [address] Naga Melendez MD [address] [place] [phone] 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HCC-CMS) (Primary Dx) Discharge Disposition: [...] Physical Medicine and Rehabilitation Naga Melendez M.D. [address] [place] [address] Discharge Instructions after Botulinum Toxin Injections Diet [...] for any questions you may have at [phone] x 2. The office is open Sunday-Sunday from 8:00 am to 5:00pm. On weekends or evenings, if you have a serious problem, please call your [place] Tower Loader, Primary CarePhysician or go to your local Emergency Room. If for any reason a follow-up appointment was not provided or you need to reschedule an appointment, please call our office, the [facility] ([phone] or [phone]) or the [facility] ([phone] or [phone]) if that is where you are seen. [...] * José Luis Rm, RN - 05/11/2015 8069 EST Botulinum toxin Lot #: [id number] Botulinum toxin expiration date: Botulinum toxin [facility] # [id number] Total Botulinum toxin units injected: 400 Total Botulinum toxin units wasted: 0 documented in this encounter Plan of Treatment Upcoming Encounters Date Type Department Care Team (Late st Contact Info) Description 01/23/2024 16:00 EST Office Visit [facility] Clinic [address] [place] [address] Scott Esquivel MD [address] [facility]- [address] [place] [address] Scheduled Referrals Name Type Priority Associated Diagnoses Orde r Schedule AMB MEDICATION PRIOR AUTHORIZATION Outpatient Referral Routine 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HCC-CMS) Ordered: 05/11/2015 documented as of this encounter Visit Diagnoses Diagnosis 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HCC-CMS)- Primary Congenital quadriplegia documented in this encounter Care Teams Test And Balance Engineer Relationship Specialty Start Date End Date Lucy Elizabeth MD [address] [place] [phone] PCP - General 09/28/08 03/08/21 documented as of this encounter
--- OUTSIDE RECORDS SUMMARY | 2023-12-21 00:37 | XMS_ITS | Encounter Summary ---
Author Organization [facility] Address [address] [place] [address] Care Team Providers Care Edi Consultant Name Role Phone Lucy Elizabeth MD Primary Care Provider [phone] Encounter Details Date Type Department Care Team (Late st Contact Info) Description 01/12/2014 Orders Only [facility] Rehabilitation Therapy - [address] [phone] Naga Melendez MD [address] [place] [address] [address] [place] [address] 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HCC-CMS) (Primary Dx) Social [...] Info) Description 01/23/2024 16:00 EST Office Visit [facility] Neu[facility] Clinic [address] [place] [address] Scott Esquivel MD [address] [facility] [address] [place] [address] documented as of this encounter Visit Diagnoses Diagnosis 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HCC-CMS)- Primary Congenital quadriplegia documented in this encounter Orders Equipment Count Last Ordered Date First Orde red Date GENERIC DME ORDER 1 01/12/2014 documented in this encounter Care Teams Edi Consultant Relationship Specialty Start Date End Date Lucy Elizabeth MD [address] [place] [phone] PCP - General 09/28/08 03/08/21 documented as of this encounter
--- OUTSIDE RECORDS SUMMARY | 2023-12-21 00:37 | XMS_ITS | Encounter Summary ---
Author Organization [facility] Address [address] [place] [address] Care Team Providers Care Applique Cutter Name Role Phone Lucy Elizabeth MD Primary Care Provider [phone] Encounter Details Date Type Department Care Team (Late st Contact Info) Description 05/25/2017 Historical Results Only [facility] - Main [place] [address] [place] [address] Suyapa Duarte MD [address] [place] [phone] Social History Tobacco Use Types Packs/Day [...] Office Visit [facility]rology Clinic [address] [place] [address] Scott Esquivel MD 130 [facility] [address] [place] [address] documented as of this encounter Procedures Procedure Name Priority Date/Time Associated Diagnosis Comments COMPREHENSIVE METABOLIC POC - [facility] Routine 05/25/2017 14:51 EDT documented in this encounter Results * (ABNORMAL) COMPREHENSIVE METABOLIC POC - [facility] (05/25/2017 14:51 EDT) Albumin % 4.9 3.50 - 5.00 G/DL 05/25/2017 14:51 [facility] ALKALINE PHOSPHATASE - [facility] 88 38.00 - 126.00 U/L 05/25/2017 14:51 [facility] BILIRUBIN TOTAL 0.5 0.20 - 1.30 MG/DL 05/25/2017 14:51 [facility] BUN - [facility] 20 7.00 - 20.00 MG/DL 05/25/2017 14:51 [facility] CALCIUM - [facility] 10.7(H) 8.50 - 10.50 MG/DL 05/25/2017 14:51 [facility] Chloride 99 98.00 - 107.00 MMOL/L 05/25/2017 14:51 [facility] CO2 Total 24 22.00 - 30.00 MMOL/L 05/25/2017 14:51 [facility] CREATININE 0.9 0.70 - 1.50 MG/DL 05/25/2017 14:51 [facility] Anion Gap 21(H) 7 - 17 MMOL/L 05/25/2017 14:51 [facility] GLUCOSE - [facility] 150(H) 70.00 - 100.00 MG/DL 05/25/2017 14:51 [facility] Potassium 4.6 3.50 - 5.10 MMOL/L 05/25/2017 14:51 [facility] Sodium 144 137.00 - 145.00 MMOL/L 05/25/2017 14:51 [facility] TOTAL PROTEIN - [facility] 8.0 6.30 - 8.20 G/DL 05/25/2017 14:51 EDT [facility] SGOT/AST - [facility] 33 15.00 - 46.00 U/L 05/25/2017 14:51 EDT [facility] SGPT/ALT - [facility] 41 13.00 - 69.00 U/L 05/25/2017 14:51 EDT [facility] 05/25/2017 14:5 1 EDT 05/25/2017 14:51 EDT Suyapa Duarte MD CHEMISTRY & BLOOD GA S ORDERABLES [facility] documented in this encounter Visit Diagnoses Not on filedocumented in this encounter Care Teams Applique Cutter Relationship Specialty Start Date End Date Lucy Elizabeth MD [address] [place] [phone] PCP - General 09/28/08 03/08/21 documented as of this encounter
--- OUTSIDE RECORDS SUMMARY | 2023-12-21 00:37 | XMS_ITS | Encounter Summary ---
Author Organization [facility] Address [address] [place] [address] Care Team Providers Care Network Operations Lead Name Role Phone Lucy Elizabeth MD Primary Care Provider [phone] Encounter Details Date Type Department Care Team (Late st Contact Info) Description 11/22/2017 Historical Results Only [facility] - Main [place] [address] [place] [address] Suyapa Duarte MD [address] [place] [phone] Social History Tobacco Use Types Packs/Day [...] Info) Description 01/23/2024 16:00 EST Office Visit [facility] [address] [place] [address] Scott Esquivel MD [address] [place] [address] [address] [place] [address] documented as of this encounter Procedures Procedure Name Priority Date/Time Associated Diagnosis Comments LIPID PROFILE (INCLUDES CHOLESTEROL, TRIGLYCERIDES, HDL, LDL) Routine 11/22/2017 8:25 EDT documented in this encounter Results * (ABNORMAL) LIPID PROFILE (INCLUDES CHOLESTEROL, TRIGLYCERIDES, HDL, LDL) (11/22/2017 8:25 EDT) Triglyceride 156 <150 mg/dL 11/27/2017 6:14 [facility] Comment: Adult: Normal: ?<150 mg/dl ? Borderline High: 150-199 mg/dl ? High: ?200-499 mg/dl ? Very High: >gc=330 Cholesterol 118 <200 mg/dL 11/27/2017 6:14 [facility] Comment: Acceptable: ??<200 Borderline: ??200-239 High: ?> or = 240 Chol/HDL Ratio 4.2 0 - 5.0 11/27/2017 6:14 [facility] Comment: DESIRABLE RATIO IS LESS THAN 4.1 PATIENTS ARE CONSIDERED AT RISK: WOMEN RATIO >5 MEN RATIO >6 FASTING? - [facility] Unknown 8 6:06 [facility] HDL 28(L) 40 - 60 mg/dL 11/27/2017 6:14 [facility] Comment: ?? Reference Range Low: ? < 40 ??mg/dL Normal: ??40-60 mg/dL High: ?>= 60 mg/dL LDL CHOLESTEROL - [facility] 59(L) 60 - 100 mg/dL 11/27/2017 6:14 [facility] Non HDL Cholesterol 90 mg/dl 11/27/2017 6:14 [facility] Comment: Desirable: ?Less than 130 Borderline High: ??130-159 High: ? 160-189 Very High: ?Greater than or equal to 190 11/22/2017 8:25 EDT 11/22/2017 12:04 EDT Narrative [facility] - 11/27/2017 6:14 EDT AOT: 11/27/17 0606: LIPID Suyapa Duarte MD CHEMISTRY & BLOOD GA S ORDERABLES [facility] documented in this encounter Visit Diagnoses Not on filedocumented in this encounter Care Teams Network Operations Lead Relationship Specialty Start Date End Date Lucy Elizabeth MD [address] [place] [phone] PCP - General 09/28/08 03/08/21 documented as of this encounter
--- OUTSIDE RECORDS SUMMARY | 2023-12-21 00:37 | XMS_ITS | Encounter Summary ---
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[facility]) Naga Melendez MD [address] [place] [address] Referral ID Status Reason Start Date Expiration Date Visits Requested Visits Authorized [id number] Specialty Report Received Specialty Services Required 11/10/2015 1 1 Encounter Details Date Type Department Care Team (Latest Contact Info) Description 11/11/2015 14:30 EDT Office Visit [facility] Physical Medicine & Rehabilitation - [address] [place], [place] [phone] Naga Melendez MD [address] [place] [phone] 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[facility]) (Primary Dx) Social History Tobacco Use Types [...] Physical Medicine and Rehabilitation Naga Melendez M.D. [address] [place] [phone] Discharge Instructions after Botulinum Toxin Injections Diet [...] for any questions you may have at [phone] x 2. The office is open Sunday-Sunday from 8:00 am to 5:00pm. On weekends or evenings, if you have a serious problem, please call your Balloon Seller, Primary CarePhysician or go to your local Emergency Room. If for any reason a follow-up appointment was not provided or you need to reschedule an appointment, please call our office, the [facility] ([phone] or [phone]) or the [facility] ([phone] or [phone]) if that is where you are seen. documented in this encounter Progress Notes * José Luis Rm RN - 11/11/2015 1522 EDT Botulinum toxin Lot #: [id number] Botulinum toxin expiration date: June2018 Botulinum toxin [facility] # 4227-6476-95 Total Botulinum toxin units injected: 400 Total [...] Info) Description 01/23/2024 16:00 EST Office Visit [facility] Neurology Clinic [address] [place] [address] Scott Esquivel MD 130 [facility] [address] [place] [address] documented as of this encounter Visit Diagnoses Diagnosis 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HCC-CMS)- Primary Congenital quadriplegia documented in this encounter Care Teams Conflict Resolution Professional Relationship Specialty Start Date End Date Lucy Elizabeth MD [address] [place] [phone] PCP - General 09/28/08 03/08/21 documented as of this encounter
--- OUTSIDE RECORDS SUMMARY | 2023-12-21 00:37 | XMS_ITS | Encounter Summary ---
Author Organization [facility] Address [address] [place] [address] Care Team Providers Care Surgical Instrument Maker Name Role Phone Lucy Elizabeth MD Primary Care Provider [phone] Encounter Details Date Type Department Care Team (Late st Contact Info) Description 01/02/2014 Results Only [facility] - Main [place] [address] [place] [address] Lucy Elizabeth MD [address] [place] [phone] Social History Tobacco Use Types Packs/Day Years Used Date Smoking Tobacco: Never Assessed Sex and Gender Information Value Date Recorded Sex Assigned at Not on file Gender Identity Male 06/12/2019 8:16 EDT Sexual Orientation Not on file documented as of this encounter Plan of Treatment Upcoming Encounters Date Type Department Care Team (Late st Contact Info) Description 01/23/2024 16:00 EST Office Visit [facility] Neurology Clinic [address] [place], [place] [address] Scott Esquivel MD 130 [facility] [address] [place] [address] documented as of this encounter Procedures Procedure Name Priority Date/Time Associated Diagnosis Comments MAGNESIUM POC - [facility] Routine 01/02/2014 12:17 EDT documented in this encounter Results * MAGNESIUM POC - [facility] (01/02/2014 12:17 EDT) Magnesium 1.70 1.60 - 2.30 mg/dl 01/27/2014 12:26 EST [facility] 01/02/2014 12:1 7 EDT 01/02/2014 12:17 EDT Lucy Elizabeth MD CHEMISTRY & BLOOD GA S ORDERABLES [facility] documented in this encounter Visit Diagnoses Not on filedocumented in this encounter Care Teams Surgical Instrument Maker Relationship Specialty Start Date End Date Lucy Elizabeth MD [address] [place] [phone] PCP - General 09/28/08 03/08/21 documented as of this encounter
--- OUTSIDE RECORDS SUMMARY | 2023-12-21 00:37 | XMS_ITS | Encounter Summary ---
Author Organization [facility] Address [address] [place] [address] Care Team Providers Care Nozzle Tender Name Role Phone Lucy Elizabeth MD Primary Care Provider [phone] Encounter Details Date Type Department Care Team (Late st Contact Info) Description 05/25/2017 Historical Results Only [facility] - Main [place] [address] [place] [phone] Suyapa Duarte MD [address] [place] [phone] Social History Tobacco Use Types Packs/Day [...] Info) Description 01/23/2024 16:00 EST Office Visit [facility] [address] [place] [address] Scott Esquivel MD [address] [place] [address] [address] [place] [phone] documented as of this encounter Procedures Procedure Name Priority Date/Time Associated Diagnosis Comments LIPID PANEL POC - [facility] Routine 05/25/2017 14:51 EDT documented in this encounter Results * (ABNORMAL) LIPID PANEL POC - [facility] (05/25/2017 14:51 EDT) Triglyceride 185(H) 0.00 - 150.00 MG/DL 05/25/2017 14:51 EDT [facility] Cholesterol 128 0.00 - 200.00 MG/DL 05/25/2017 14:51 EDT [facility] HDL 38(L) 40.00 - 60.00 MG/DL 05/25/2017 14:51 EDT [facility] 05/25/2017 14:5 1 EDT 05/25/2017 14:51 EDT Suyapa Duarte MD CHEMISTRY & BLOOD GA S ORDERABLES [facility] documented in this encounter Visit Diagnoses Not on filedocumented in this encounter Care Teams Nozzle Tender Relationship Specialty Start Date End Date Lucy Elizabeth MD [address] [place] [phone] PCP - General 09/28/08 03/08/21 documented as of this encounter
--- OUTSIDE RECORDS SUMMARY | 2023-12-21 00:37 | XMS_ITS | Encounter Summary ---
Author Organization [facility] Address [address] [place] [address] Care Team Providers Care Care Services Manager Name Role Phone Lucy Elizabeth MD Primary Care Provider [phone] Reason for Referral * Consult (Routine/Next Available) - Specialty Report Received Specialty Diagnoses / Procedures Referred By Rubina perkins Referred To Contact Diagnoses 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[facility]) Naga Melendez MD [address] [place] [address] Referral ID Status Reason Start Date Expiration Date Visits Requested Visits Authorized [id number] Specialty Report Received Specialty Services Required 06/18/2014 1 1 Question Answer Medication to be Prior Authorized: Botox for next visit Comments Botox 400 units Reason for Visit * Reason Comments Botox Injection Encounter Details Date Type Department Care Team (Latest Contact Info) Description 06/18/2014 14:00 EDT Office Visit [facility] Physical Medicine & Rehabilitation - [address] [place], [place] [phone] Naga Melendez MD [address] [place] [phone] 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[facility]) (Primary Dx) Social History Tobacco Use Types Packs/Day Years Used Date Smoking Tobacco: Never Assessed Sex and Gender Information Value Date Recorded Sex Assigned at Not on file Gender Identity Male 06/12/2019 8:16 EDT Sexual Orientation Not on file documented as of this encounter Progress Notes * José Luis Rm RN - 06/18/2014 0296 EDT Botulinum toxin Lot #: [id number] Botulinum toxin expiration date: Botulinum toxin NEC # 6294-9558-14 Total Botulinum toxin units injected: 400 Total Botulinum toxin units wasted: 0 * Naga Melendez MD - 06/18/2014 7158 EDT Botulinum Toxin Injection Procedure Note Pre-Procedure [...] Info) Description 01/23/2024 16:00 EST Office Visit [facility] Neurology Clinic [address] [place], [place] [phone] Scott Esquivel MD [address] [facility] [address] [place] [phone] Scheduled Referrals Name Type Priority Associated Diagnoses Orde r Schedule AMB MEDICATION PRIOR AUTHORIZATION Outpatient Referral Routine 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[facility]) Ordered: 06/18/2014 documented as of this encounter Visit Diagnoses Diagnosis 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[facility])- Primary Congenital quadriplegia documented in this encounter [...] 02/09/2015 added in this encounter Care Teams Care Services Manager Relationship Specialty Start Date End Date Lucy Elizabeth MD [address] [place] [phone] PCP - General 09/28/08 03/08/21 documented as of this encounter
--- OUTSIDE RECORDS SUMMARY | 2023-12-21 00:37 | XMS_ITS | Encounter Summary ---
Author Organization [facility] Address [address] [place] [address] Care Team Providers Care Gore Stitcher Name Role Phone Lucy Elizabeth MD Primary Care Provider [phone] Reason for Referral * Consult (Routine/Next Available) - Specialty Report Received Specialty Diagnoses / Procedures Referred By Rubina perkins Referred To Contact Diagnoses 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HCC-CMS) Naga Melendez MD [address] [place] [phone] Referral ID Status Reason Start Date Expiration Date Visits Requested Visits Authorized [id number] Specialty Report Received Specialty Services Required 6 1 1 Question Answer Medication to be Prior Authorized: Botox for next visit Comments Botox 400 units Encounter Details Date Type Department Care Team (Late st Contact Info) Description 02/02/2016 Orders Only [facility] Physical Medicine & [place] [address] [address] [place] [address] Naga Melendez MD [address] [place] [phone] 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CMS-HCC) (Primary Dx) [...] Info) Description 01/23/2024 16:00 EST Office Visit [facility] Neurology Clinic [address] [place] [address] Scott Esquivel MD [address] [facility] [place] [place] [phone] Scheduled Referrals Name Type Priority Associated Diagnoses Orde r Schedule AMB MEDICATION PRIOR AUTHORIZATION Outpatient Referral Routine Spastic quadriplegic cerebral palsy (CMS-HCC) Ordered: 02/02/2016 documented as of this encounter Visit Diagnoses Diagnosis 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
--- OUTSIDE RECORDS SUMMARY | 2023-12-21 00:37 | XMS_ITS | Encounter Summary ---
Author Organization [facility] Address [address] [place] [address] Care Team Providers Care Content Specialist Name Role Phone Lucy Elizabeth MD Primary Care Provider Encounter Details Date Type Department Care Team (Late st Contact Info) Description 03/09/2017 Historical Results Only [facility] - Main [place] [address] [place] [phone] Lucy Elizabeth MD [address] [place] [phone] Social History Tobacco Use Types Packs/Day [...] Visit [facility] Neurology Clinic [address] [place] [address] Scott Esquivel MD [address] [place] [address] [address] [place] [phone] documented as of this encounter Procedures Procedure Name Priority Date/Time Associated Diagnosis Comments VIT D, 25-HYDROXY - [facility] Routine 03/09/2017 10:00 EST COMPLETE BLOOD COUNT WITH DIFFERENTIAL (AUTO) Routine 03/09/2017 10:00 EST T3, TOTAL Routine 03/09/2017 10:00 EST T4 FREE Routine 03/09/2017 10:00 EST VALPROIC ACID LEVEL Routine 03/09/2017 1 0:00 EST documented in this encounter Results * (ABNORMAL) VALPROIC ACID LEVEL (03/09/2017 10:00 EST) Valproic Acid 44.2(L) 50 - 100 ug/mL 03/09/2017 12:34 EST [facility] Comment: Therapeutic Range: 50-100 ug/mL Toxic: ??>120 ug/mL 03/09/2017 10:0 0 EST 03/09/2017 10:57 EST Lucy Elizabeth MD CHEMISTRY & BLOOD GA S ORDERABLES [facility] * VIT D, 25-HYDROXY - [facility] (03/09/2017 10:00 EST) VIT D, 25 HYDROXY - [facility] 51.5 30 - 100 ng/ml 03/09/2017 13:01 EST [facility] Comment: ? 25-Hydroxy D Total (D2+D3) ?Expected Values Deficient: ?<20 ng/ml Insufficient: ? 20- <30 ng/ml Sufficient: ? 30-100 ng/ml Potential intoxication: >100 ng/ml 03/09/2017 10:0 0 EST 03/09/2017 10:57 EST Lucy Elizabeth MD CHEMISTRY & BLOOD GA S ORDERABLES Performing Organization Address [facility]/ZIP Co de Phone Number [facility] * T3, TOTAL (03/09/2017 10:00 EST) TOTAL T3, External 1.28 0.97 - 1.69 ng/mL 03/09/2017 13:01 EST [facility] 03/09/2017 10:0 0 EST 03/09/2017 10:57 EST Lucy Elizabeth MD CHEMISTRY & BLOOD GA S ORDERABLES Performing Organization Address [facility] Co de Phone Number [facility] * T4 FREE (03/09/2017 10:00 EST) FREE T4 - [facility] 0.98 0.78 - 2.19 ng/dl 03/09/2017 13:01 EST [facility] 03/09/2017 10:0 0 EST 03/09/2017 10:57 EST Lucy Elizabeth MD CHEMISTRY & BLOOD GA S ORDERABLES Performing Organization Address [facility]/ZIP Co de Phone Number [facility] * (ABNORMAL) COMPLETE BLOOD COUNT WITH DIFFERENTIAL (AUTO) (03/09/2017 10:00 EST) ABSOLUTE NEUTROPHIL COUN - [facility] 4.70 1.7 - 7.0 10e3/ul 03/09/2017 11:56 EST [facility] BASO # - [facility] 0.04 0.0 - 0.3 10e3/uL 03/09/2017 11:56 EST [facility] BASO % - [facility] 1 0 - 2 % 03/09/2017 11:56 EST [facility] EOS # - [facility] 0.05 0.05 - 0.5 10e3/uL 03/09/2017 11:56 [facility] EOS % - [facility] 1 0 - 5 % 03/09/2017 11:56 [facility] GRAN % - [facility] 55 40 - 80 % 03/09/2017 11:56 [facility] HEMATOCRIT - CV 46.4 36.0 - 52.0 % 03/09/2017 11:56 [facility] HEMOGLOBIN - [facility] 15.6 13.7 - 17.5 g/dl 03/09/2017 11:56 [facility] MEAN CORPUSCULAR HGB - [facility] 29.7 26 - 34 pg 03/09/2017 11:56 [facility] MEAN CORPUSCULAR HGB CONC - [facility] 33.6 31 - 36 g/dL 03/09/2017 11:56 [facility] MEAN CELL VOLUME - [facility] 88.2 77 - 100 fl 03/09/2017 11:56 [facility] MONO # - [facility] 0.63 0.3 - 0.9 10e3/uL 03/09/2017 11:56 [facility] MONO% - [facility] 7 0 - 12 % 03/09/2017 11:56 [facility] PLATELET COUNT 189 150 - 400 10e3/ul 03/09/2017 11:56 [facility] RED BLOOD COUNT - [facility] 5.26 4.3 - 5.7 10e6/ul 03/09/2017 11:56 [facility] RED CELL DISTRI WIDTH - [facility] 14.9 11.8 - 15.6 % 03/09/2017 11:56 [facility] WHITE BLOOD COUNT - [facility] 8.5 3.5 - 10.5 10e3/ul 03/09/2017 11:56 EST [facility] 03/09/2017 10:0 0 EST 03/09/2017 10:57 EST Lucy Elizabeth MD HEMATOLOGY & PF4 ORD ERABLES [facility] documented in this encounter Visit Diagnoses Not on filedocumented in this encounter Care Teams Content Specialist Relationship Specialty Start Date End Date Lucy Elizabeth MD [address] [place] [phone] PCP - General 09/28/08 03/08/21 documented as of this encounter
--- OUTSIDE RECORDS SUMMARY | 2023-12-21 00:37 | XMS_ITS | Encounter Summary ---
Author Organization [facility] Address [address] [place] [address] Care Team Providers Care Control Operator Flow Coat Name Role Phone Lucy Elizabeth MD Primary Care Provider [phone] Encounter Details Date Type Department Care Team (Late st Contact Info) Description 08/24/2017 Historical Results Only [facility] - Main [place] [address] [place] [address] Suyapa Duarte MD [address] [place] [phone] Social History Tobacco Use Types Packs/Day [...] Visit [facility]rology Clinic [address] [place] [address] Scott Esquivel MD [address] [facility] [address] [place] [address] documented as of this encounter Procedures Procedure Name Priority Date/Time Associated Diagnosis Comments GLYCOHEMOGLOBIN POC - [facility] Routine 08/24/2017 10:29 EDT documented in this encounter Results * GLYCOHEMOGLOBIN POC - [facility] (08/24/2017 10:29 EDT) Hemoglobin A1c 5.7 4.0 - 6.0 % 08/24/2017 10:30 EDT [facility] AVG CALCULATED GLUCOSE - [facility] 110 60 - 115 MG/DL 08/24/2017 10:30 EDT [facility] 08/24/2017 10:2 9 EDT 08/24/2017 10:29 EDT Suyapa Duarte MD CHEMISTRY & BLOOD GA S ORDERABLES [facility] documented in this encounter Visit Diagnoses Not on filedocumented in this encounter Care Teams Control Operator Flow Coat Relationship Specialty Start Date End Date Lucy Elizabeth MD [address] [place] [phone] PCP - General 09/28/08 03/08/21 documented as of this encounter
--- OUTSIDE RECORDS SUMMARY | 2023-12-21 00:37 | XMS_ITS | Encounter Summary ---
Author Organization [facility] Address [address] [place] [address] Care Team Providers Care Product Safety And Standards Engineer Name Role Phone Lucy Elizabeth MD Primary Care Provider [phone] Encounter Details Date Type Department Care Team (Late st Contact Info) Description 09/25/2016 Historical Results Only [facility] - Main [place] [address] [place] [phone] Lucy Elizabeth MD [address] [place] [phone] Social History Tobacco Use Types Packs/Day [...] [facility] [address] [place] [address] Scott Esquivel MD [address] [place], [place] [address] [address] [place] [phone] documented as of this encounter [...] on filedocumented in this encounter Care Teams Product Safety And Standards Engineer Relationship Specialty Start Date End Date Lucy Elizabeth MD [address] [place] [phone] PCP - General 09/28/08 03/08/21 documented as of this encounter
--- OUTSIDE RECORDS SUMMARY | 2023-12-21 00:37 | XMS_ITS | Encounter Summary ---
Author Organization [facility] Address [address] [place] [address] Care Team Providers Care Tank Maker Wood Name Role Phone Lucy Elizabeth MD Primary Care Provider [phone] Encounter Details Date Type Department Care Team (Late st Contact Info) Description 11/22/2017 Historical Results Only [facility] - Main [place] [address] [place] [phone] Suyapa Duarte MD [address] [place] [phone] Social History Tobacco Use Types Packs/Day [...] Info) Description 01/23/2024 16:00 EST Office Visit [facility] Neurology Clinic [address] [place] [address] Scott Esquivel MD [address] [facility] [place] [phone] documented as of this encounter Procedures Procedure Name Priority Date/Time Associated Diagnosis Comments HEPATIC FUNCTION PANEL (ALB,ALK PHOS,ALT,AST,DBIL,T OT MALINDA,TOT PROT) Routine 11/22/2017 8:25 EDT documented in this encounter Results * HEPATIC FUNCTION PANEL (ALB,ALK PHOS,ALT,AST,DBIL,TOT MALINDA,TOT PROT) (11/22/2017 8:25 EDT) BILIRUBIN DIRECT CALC - [facility] 0.0 0.0 - 0.4 mg/dL 11/22/2017 13:33 EDT [facility] Unconjugated Bilirubin 0.4 0.0 - 1.1 mg/dL 11/22/2017 13:33 EDT [facility] 11/22/2017 8:25 EDT 11/22/2017 12:04 EDT Narrative [facility] - 11/27/2017 6:14 EDT AOT: 11/27/17 0606: LIPID Suyapa Duarte MD CHEMISTRY & BLOOD GA S ORDERABLES [facility] documented in this encounter Visit Diagnoses Not on filedocumented in this encounter Care Teams Tank Maker Wood Relationship Specialty Start Date End Date Lucy Elizabeth MD [address] [place] [phone] PCP - General 09/28/08 03/08/21 documented as of this encounter
--- OUTSIDE RECORDS SUMMARY | 2023-12-21 00:37 | XMS_ITS | Encounter Summary ---
Author Organization [facility] Address [address] [place] [address] Care Team Providers Care Housekeeping Room Attendant Name Role Phone Lucy Elizabeth MD Primary Care Provider [phone] Encounter Details Date Type Department Care Team (Late st Contact Info) Description 03/13/2018 Historical Results Only [facility] [place] [address] [place] [address] Lucy Elizabeth MD [address] [place] [phone] Social History Tobacco Use Types Packs/Day [...] [facility] [address] [place] [address] Scott Esquivel MD [address] [place], [place] [address]A [address] [place] [address] documented as of this encounter Procedures Procedure Name Priority Date/Time Associated Diagnosis Comments PSA, ULTRASENSITIVE, DIAGNOSTIC, S UROLOGY/ONCOLOGY USE ONLY Routine 03/13/2018 9:00 EST PSA FREE TOTAL ([facility]) Routine 03/13/2018 9:00 EST PSA RATIO ([facility]) Routine 03/13/2018 9:00 EST PTH INTACT Routine [...] ACID (03/13/2018 9:00 EST) URIC ACID - [facility] 5.9 3.9 - 9.0 mg/dL 03/13/2018 11:09 EST [facility] 03/13/2018 9:00 EST 03/13/2018 9:47 EST Lucy Elizabeth MD CHEMISTRY & BLOOD GA S ORDERABLES [facility] * MAGNESIUM (03/13/2018 9:00 EST) Magnesium 1.90 1.7 - 2.8 mg/dL 03/13/2018 11:09 [facility] 03/13/2018 9:00 EST 03/13/2018 9:47 EST Lucy Elizabeth MD CHEMISTRY & BLOOD GA S ORDERABLES [facility] * (ABNORMAL) LIPID PROFILE (INCLUDES CHOLESTEROL, TRIGLYCERIDES, HDL, LDL) (03/13/2018 9:00 EST) Triglyceride 104 <150 mg/dL 03/13/2018 11:09 [facility] Comment: Adult: Normal: ?<150 mg/dl ? Borderline High: 150-199 mg/dl ? High: ?200-499 mg/dl ? Very High: >bo=271 Cholesterol 120 <200 mg/dL 03/13/2018 11:09 [facility] Comment: Acceptable: ??<200 Borderline: ??200-239 High: ?> or = 240 Chol/HDL Ratio 3.3 0 - 5.0 03/13/2018 11:09 [facility] Comment: DESIRABLE RATIO IS LESS THAN 4.1 PATIENTS ARE CONSIDERED AT RISK: WOMEN RATIO >5 MEN RATIO >6 FASTING? - [facility] Unknown 9 9:48 [facility] HDL 36(L) 40 - 60 mg/dL 03/13/2018 11:09 [facility] Comment: ?? Reference Range Low: ? < 40 ??mg/dL Normal: ??40-60 mg/dL High: ?>= 60 mg/dL LDL CHOLESTEROL - [facility] 63 60 - 100 mg/dL 03/13/2018 11:09 [facility] Non HDL Cholesterol 84 mg/dl 03/13/2018 11:09 [facility] Comment: Desirable: ?Less than 130 Borderline High: ??130-159 High: ? 160-189 Very High: ?Greater than or equal to 190 03/13/2018 9:00 EST 03/13/2018 9:47 EST Lucy Elizabeth MD CHEMISTRY & BLOOD GA S ORDERABLES [facility] * (ABNORMAL) COMPREHENSIVE METABOLIC PANEL (CMP) (03/13/2018 9:00 EST) Albumin % 4.3 3.4 - 4.9 g/dL 03/13/2018 11:09 [facility] ALKALINE PHOSPHATASE - [facility] 96 38 - 126 U/L 03/13/2018 11:09 [facility] BILIRUBIN TOTAL 0.3 0.2 - 1.3 mg/dL 03/13/2018 11:09 [facility] BUN - [facility] 16 10 - 26 mg/dL 03/13/2018 11:09 [facility] CALCIUM - [facility] 10.6(H) 8.5 - 10.5 mg/dL 03/13/2018 11:09 [facility] Chloride 94(L) 96 - 110 mmol/L 03/13/2018 11:10 [facility] CO2 Total 28 21 - 32 mEq/L 03/13/2018 11:10 [facility] CREATININE 0.84 0.66 - 1.25 mg/dL 03/13/2018 11:09 [facility] eGFR >60 03/13/2018 11:09 [facility] Comment: Chronic renal impairment is defined as GFR <60 Multiply result by 1.210 for patients. Anion Gap 20(H) 0 - 18 03/13/2018 11:22 [facility] GLUCOSE - [facility] 126(H) 70 - 100 mg/dL 03/13/2018 11:09 [facility] Potassium 4.6 3.5 - 5.0 mEq/L 03/13/2018 11:09 [facility] Sodium 142 136 - 145 mEq/L 03/13/2018 11:10 [facility] TOTAL PROTEIN - [facility] 7.9 6.2 - 8.2 gm/dL 03/13/2018 11:09 [facility] SGOT/AST - [facility] 38 17 - 59 U/L 03/13/2018 11:09 [facility] SGPT/ALT - [facility] 63 21 - 72 U/L 03/13/2018 11:09 [facility] 03/13/2018 9:00 EST 03/13/2018 9:47 EST Lucy Elizabeth MD CHEMISTRY & BLOOD GA S ORDERABLES [facility] * PSA, ULTRASENSITIVE, DIAGNOSTIC, S UROLOGY/ONCOLOGY USE ONLY (03/13/2018 9:00 EST) PSA ULTRASENSTIVE - [facility] 2.100 <4.0 ng/mL 03/15/2018 7:41 EST [facility] Comment: Test methodology is Siemens Chemiluminescence. The lower limit of detection is 0.010 ng/mL. ??Results from different methods or kits cannot be used interchangeably. ?? Serum PSA results cannot be interpreted as absolute evidence of presence or absence of malignancy. PERFORMED at [facility]. ??[address] [place] [address]. Laboratory Airborne Sensor Specialist: ??Zev Paz M.D. 03/13/2018 9:00 EST 03/13/2018 9:47 EST Luyc Elizabeth MD CHEMISTRY & BLOOD GA S ORDERABLES [facility] * PSA FREE TOTAL ([facility]) (03/13/2018 9:00 EST) PROSTATE-SPECIFI C ANTIGEN - [facility] 0.43 ng/mL 03/15/2018 7:41 EST [facility] Comment: Test methodology is Siemens Chemiluminescence. Results from different methods or kits cannot be used interchangeably. Results cannot be interpreted as absolute evidence of presence or absence of malignancy. 03/13/2018 9:00 EST 03/13/2018 9:47 EST Lucy Elizabeth MD CHEMISTRY & BLOOD GA S ORDERABLES Performing Organization Address [facility] Co de Phone Number [facility] * PSA RATIO ([facility]) (03/13/2018 9:00 EST) PSA RATIO - [facility] TNP % 03/15/19 19 7:41 EST [facility] Comment:PSA or Free PSA not in calculation range. 03/13/2018 9:00 EST 03/13/2018 9:47 EST Lucy Elizabeth MD CHEMISTRY & BLOOD GA S ORDERABLES Performing Organization Address [facility] Number [facility] * TSH (03/13/2018 9:00 EST) Pathologist [facility] THYROID STIM HORMONE - [facility] 3.03 0.46 - 4.68 uIU/ml 03/13/2018 11:40 EST [facility] Comment: The results of this assay can be falsely lowered due to the consumption of Biotin. 03/13/2018 9:00 EST 03/13/2018 9:47 EST Lucy Elizabeth MD CHEMISTRY & BLOOD GA S ORDERABLES Performing Organization Address [facility] de Phone Number [facility] * (ABNORMAL) HEMOGLOBIN A1C (03/13/2018 9:00 EST) Pathologist [facility] Hemoglobin A1c 6.7(H) 4.0 - 6.0 % 03/13/2018 13:20 EST [facility] Est Avg Glucose 146 mg/dL 9 13:20 EST [facility] 03/13/2018 9:00 EST 03/13/2018 9:47 EST Lucy Elizabeth MD CHEMISTRY & BLOOD GA S ORDERABLES Performing Organization Address [facility] Co de Phone Number [facility] * PTH INTACT (03/13/2018 9:00 EST) PTH INTACT ([facility]) - [facility] 43 19 - 88 pg/ml 03/14/2018 14:43 EST [facility] Comment: Reference range based on normal calcium level. Test performed or referred by The [address] [id number] 03/13/2018 9:00 EST 03/13/2018 9:47 EST Lucy Elizabeth MD CHEMISTRY & BLOOD GA S ORDERABLES [facility] documented in this encounter Visit Diagnoses Not on filedocumented in this encounter Care Teams Housekeeping Room Attendant Relationship Specialty Start Date End Date Lucy Elizabeth MD [address] [place] [phone] PCP - General 09/28/08 03/08/21 documented as of this encounter
--- OUTSIDE RECORDS SUMMARY | 2023-12-21 00:37 | XMS_ITS | Encounter Summary ---
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[facility] Naga Melendez MD [address] [place] [phone] Referral ID Status Reason Start Date Expiration Date Visits Requested Visits Authorized [id number] Specialty Report Received Specialty Services Required 05/11/2015 1 1 Encounter Details Date Type Department Care Team (Latest Contact Info) Description 08/10/2015 14:30 EDT Office Visit [facility] Physical Medicine & Rehabilitation - [address] [place], [place] [phone] Naga Melendez MD [address] [place] [phone] 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 [address] [place] [address] Discharge Instructions after Botulinum Toxin Injections Diet [...] for any questions you may have at [phone] x [phone]. The office is open Sunday-Sunday from 8:00 am to 5:00pm. On weekends or evenings, if you have a serious problem, please call your Clinic [facility], Primary CarePhysician or go to your local Emergency Room. If for any reason a follow-up appointment was not provided or you need to reschedule an appointment, please call our office, the [facility] ([phone] or [phone]) or the [facility] ([phone] or [phone]) if that is where you are seen. [...] * José Luis Rm, RN - 08/10/2015 0356 EDT Botulinum toxin Lot #: [id number] Botulinum toxin expiration date: Feb 2018 Botulinum toxin [facility] # 8961-3798-15 Total Botulinum toxin units injected: 400 Total Botulinum toxin units wasted: 0 documented in this encounter Plan of Treatment Upcoming Encounters Date Type Department Care Team (Late st Contact Info) Description 01/23/2024 16:[address] 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
--- OUTSIDE RECORDS SUMMARY | 2023-12-21 00:37 | XMS_ITS | Encounter Summary ---
Author Organization [facility] Address [address] [place] [address] Care Team Providers Care Appeals Officer Name Role Phone Lucy Elizabeth MD Primary Care Provider Encounter Details Date Type Department Care Team (Late st Contact Info) Description 01/02/2014 Results Only [facility] - Main [place] [address] [place] [address] Lucy Elizabeth MD [address] [place] [phone] Social History Tobacco Use Types Packs/Day [...] 16:00 EST Office Visit [facility] Neurology [facility] [address] [place], [place] [phone] Scott Esquivel MD [address] [facility] [address] [place] [address] documented as of this encounter Procedures Procedure Name Priority Date/Time Associated Diagnosis Comments LIPID PANEL POC - [facility] Routine 01/02/2014 12:17 EDT documented in this encounter Results * (ABNORMAL) LIPID PANEL POC - [facility] (01/02/2014 12:17 EDT) Triglyceride 197(H) 0.00 - 150.00 mg/dl 01/27/2014 12:26 [facility] Cholesterol 151 0.00 - 200.00 mg/dl 01/27/2014 12:26 [facility] HDL 47 40.00 - 60.00 mg/dl 01/27/2014 12:26 [facility] 01/02/2014 12:1 7 EDT 01/02/2014 12:17 EDT Lucy Elizabeth MD CHEMISTRY & BLOOD GA S ORDERABLES [facility] documented in this encounter Visit Diagnoses Not on filedocumented in this encounter Care Teams Appeals Officer Relationship Specialty Start Date End Date Lucy Elizabeth MD [address] [place] [phone] PCP - General 09/28/08 03/08/21 documented as of this encounter
--- OUTSIDE RECORDS SUMMARY | 2023-12-21 00:37 | XMS_ITS | Encounter Summary ---
Author Organization [facility] Address [address] [place] [address] Care Team Providers Care Coverage Specialist Rn Name Role Phone Lucy Elizabeth MD Primary Care Provider [phone] Encounter Details Date Type Department Care Team (Late st Contact Info) Description 09/25/2016 Historical Results Only [facility] - Main [place] [address] [place] [phone] Lucy Elizabeth MD [address] [place] [phone] Social History Tobacco Use Types Packs/Day [...] Info) Description 01/23/2024 16:00 EST Office Visit [facility] Neurology [facility] [address] [place] [address] Scott Esquivel MD [address] [place] [address] [address] [place] [address] documented as of this encounter Procedures Procedure Name Priority Date/Time Associated Diagnosis Comments LIPID PROFILE (INCLUDES CHOLESTEROL, TRIGLYCERIDES, HDL, LDL) Routine 09/25/2016 8:30 EDT documented in this encounter Results * (ABNORMAL) LIPID PROFILE (INCLUDES CHOLESTEROL, TRIGLYCERIDES, HDL, LDL) (09/25/2016 8:30 EDT) Triglyceride 309(H) 35 - 150 mg/dL 09/25/2016 10:41 EDT [facility] Cholesterol 156 120 - 200 mg/dL 09/25/2016 10:41 [facility] Chol/HDL Ratio 4.4 0 - 5.0 09/25/2016 10:41 EDT [facility] Comment: DESIRABLE RATIO IS LESS THAN 4.1 PATIENTS ARE CONSIDERED AT RISK: WOMEN RATIO >5 MEN RATIO >6 FASTING? - [facility] Unknown 7 9:34 EDT [facility] HDL 35(L) 40 - 60 mg/dL 09/25/2016 10:41 [facility] LDL CHOLESTEROL - [facility] 59(L) 60 - 100 mg/dL 09/25/2016 10:41 [facility] Non HDL Cholesterol 121 mg/dl 09/25/2016 10:41 T [facility] Comment: Desirable: ?Less than 130 Borderline High: ??130-159 High: ? 160-189 Very High: ?Greater than or equal to 190 09/25/2016 8:30 EDT 09/25/2016 9:34 EDT Lucy Elizabeth MD CHEMISTRY & BLOOD GA S ORDERABLES [facility] documented in this encounter Visit Diagnoses Not on filedocumented in this encounter Care Teams Coverage Specialist Rn Relationship Specialty Start Date End Date Lucy Elizabeth MD [address] [place] [phone] PCP - General 09/28/08 03/08/21 documented as of this encounter
--- OUTSIDE RECORDS SUMMARY | 2023-12-21 00:37 | XMS_ITS | Encounter Summary ---
Author Organization [facility] Address [address] [place] [address] Care Team Providers Care Hand Reamer Name Role Phone Lucy Elizabeth MD Primary Care Provider [phone] Encounter Details Date Type Department Care Team (Late st Contact Info) Description 05/05/2016 Historical Results Only [facility] - Main [place] [address] [place] [address] Lucy Elizabeth MD [address] [place] [phone] Social History Tobacco Use Types Packs/Day [...] Info) Description 01/23/2024 16:00 EST Office Visit [facility] Neurology Clinic [address] [place] [address] Scott Esquivel MD [address] [place] [address] [address] [place] [address] documented as of this encounter [...] 4.0 - 6.0 % 05/05/2016 12:36 EST [facility] Est Avg Glucose 140 mg/dL 7 12:36 EST [facility] 05/05/2016 8:45 EST 05/05/2016 10:21 EST Lucy Elizabeth MD CHEMISTRY & BLOOD GA S ORDERABLES [facility] * VALPROIC ACID LEVEL (05/05/2016 8:45 EST) Valproic Acid 84.8 05/05/2016 11:01 EST [facility] Comment: Date and Time for last dose: Not Available. ?? Therapeutic Range: 50-100 ug/mL Toxic: ??>120 ug/mL 05/05/2016 8:45 EST 05/05/2016 10:21 EST Lucy Elizabeth MD CHEMISTRY & BLOOD GA S ORDERABLES Performing Organization Address [facility]/ZIP Co de Phone Number [facility] * T3, TOTAL (05/05/2016 8:45 EST) TOTAL T3, External 0.91 0.60 - 1.81 ng/mL 05/05/2016 10:56 EST [facility] 05/05/2016 8:45 EST 05/05/2016 10:21 EST Lucy Elizabeth MD CHEMISTRY & BLOOD GA S ORDERABLES Performing Organization Address [facility] Co ca Phone Number [facility] * TSH (05/05/2016 8:45 EST) Pathologist [facility] THYROID STIM HORMONE - [facility] 0.93 0.35 - 5.50 uIU/mL 05/05/2016 10:56 EST [facility] 05/05/2016 8:45 EST 05/05/2016 10:21 EST Lucy Elizabeth MD CHEMISTRY & BLOOD GA S ORDERABLES Performing Organization Address [facility]/ZIP Co de Phone Number [facility] * (ABNORMAL) LIPID PROFILE (INCLUDES CHOLESTEROL, TRIGLYCERIDES, HDL, LDL) (05/05/2016 8:45 EST) Triglyceride 204(H) 35 - 150 mg/dL 05/05/2016 10:50 EST [facility] Cholesterol 130 120 - 200 mg/dL 05/05/2016 10:50 [facility] Chol/HDL Ratio 3.1 0 - 5.0 05/05/2016 10:50 [facility] Comment: DESIRABLE RATIO IS LESS THAN 4.1 PATIENTS ARE CONSIDERED AT RISK: WOMEN RATIO >5 MEN RATIO >6 FASTING? - [facility] Unknown 03/03/201 7 10:24 [facility] HDL 41 40 - 60 mg/dL 05/05/2016 10:50 [facility] LDL CHOLESTEROL - [facility] 48(L) 60 - 100 mg/dL 05/05/2016 10:50 [facility] Non HDL Cholesterol 89 mg/dl 05/05/2016 10:50 [facility] Comment: Desirable: ?Less than 130 Borderline High: ??130-159 High: ? 160-189 Very High: ?Greater than or equal to 190 05/05/2016 8:45 EST 05/05/2016 10:21 EST Lucy Elizabeth MD CHEMISTRY & BLOOD GA S ORDERABLES Performing Organization Address [facility]/ZIP Co de Phone Number [facility] * T4 FREE (05/05/2016 8:45 EST) FREE T4 [facility] 1.45 0.89 - 1.76 ng/dL 05/05/2016 10:55 [facility] 05/05/2016 8:45 EST 05/05/2016 10:21 EST Lucy Elizabeth MD CHEMISTRY & BLOOD GA S ORDERABLES Performing Organization Address City/[facility]/ZIP Co de Phone Number [facility] * (ABNORMAL) COMPREHENSIVE METABOLIC PANEL (CMP) (05/05/2016 8:45 EST) [facility] Albumin % 4.1 3.4 - 5.0 g/dL 05/05/2016 10:50 [facility] ALKALINE PHOSPHATASE - [facility] 75 42 - 122 U/L 05/05/2016 10:50 [facility] BILIRUBIN TOTAL 0.4 0.0 - 1.0 mg/dL 05/05/2016 10:50 [facility] BUN - [facility] 8 7 - 18 mg/dL 05/05/2016 10:50 [facility] CALCIUM - [facility] 9.6 8.5 - 10.1 mg/dL 05/05/2016 10:50 [facility] Chloride 103 98 - 107 mEq/L 05/05/2016 10:50 [facility] CO2 Total 27 21 - 32 mEq/L 05/05/2016 10:50 [facility] CREATININE 0.83 0.5 - 1.3 mg/dL 05/05/2016 10:50 [facility] eGFR >60 05/05/2016 10:50 [facility] Comment: Chronic renal impairment is defined as GFR <60 Multiply result by 1.210 for patients. Anion Gap 11 5 - 15 05/05/2016 10:50 [facility] GLUCOSE - [facility] 113(H) 70 - 100 mg/dL 05/05/2016 10:50 [facility] Potassium 4.8 3.5 - 5.0 mEq/L 05/05/2016 10:50 [facility] Sodium 141 135 - 145 mEq/L 05/05/2016 10:50 [facility] TOTAL PROTEIN - [facility] 7.7 6.4 - 8.2 gm/dl 05/05/2016 10:50 [facility] SGOT/AST - [facility] 18 10 - 37 U/L 05/05/2016 10:50 [facility] SGPT/ALT - [facility] 31 12 - 78 U/L 05/05/2016 10:50 [facility] 05/05/2016 8:45 EST 05/05/2016 10:21 EST Lucy Elizabeth MD CHEMISTRY & BLOOD GA S ORDERABLES [facility] * (ABNORMAL) COMPLETE BLOOD COUNT WITH DIFFERENTIAL (AUTO) (05/05/2016 8:45 EST) ABSOLUTE NEUTROPHIL COUN - [facility] 4.11 1.7 - 7.0 10e3/ul 05/05/2016 10:40 [facility] BASO # - [facility] 0.03 0.0 - 0.3 10e3/uL 05/05/2016 10:40 [facility] BASO % - [facility] 0 0 - 2 % 05/05/2016 10:40 [facility] EOS # - [facility] 0.10 0.05 - 0.5 10e3/uL 05/05/2016 10:40 [facility] EOS % - [facility] 1 0 - 5 % 05/05/2016 10:40 [facility] GRAN % - [facility] 44 40 - 80 % 05/05/2016 10:40 [facility] HEMATOCRIT - [facility] 44.4 36.0 - 52.0 % 05/05/2016 10:40 [facility] HEMOGLOBIN - [facility] 14.9 13.7 - 17.5 g/dl 05/05/2016 10:40 [facility] IG# - [facility] 0.04 0 - 0.07 10e3/uL 05/05/2016 10:40 [facility] IG% - [facility] 0.4 0 - 0.9 % 05/05/2016 10:40 [facility] LYMPH # - [facility] 4.55(H) 0.9 - 2.9 10e3/uL 05/05/2016 10:40 [facility] LYMPH% - [facility] 49(H) 20 - 40 % 05/05/2016 10:40 [facility] MEAN CORPUSCULAR HGB - [facility] 30.0 26 - 34 pg 05/05/2016 10:40 [facility] MEAN CORPUSCULAR HGB CONC - [facility] 33.6 31 - 36 g/dL 05/05/2016 10:40 [facility] MEAN CELL VOLUME - [facility] 89.3 77 - 100 fl 05/05/2016 10:40 [facility] MONO # - [facility] 0.51 0.3 - 0.9 10e3/uL 05/05/2016 10:40 [facility] MONO% - [facility] 6 0 - 12 % 05/05/2016 10:40 [facility] PLATELET COUNT 205 150 - 400 10e3/ul 05/05/2016 10:40 [facility] RED BLOOD COUNT - [facility] 4.97 4.3 - 5.7 10e6/ul 05/05/2016 10:40 EST [facility] RED CELL DISTRI WIDTH - [facility] 15.8(H) 11.8 - 15.6 % 05/05/2016 10:40 EST [facility] WHITE BLOOD COUNT - [facility] 9.3 3.5 - 10.5 10e3/ul 05/05/2016 10:40 EST [facility] 05/05/2016 8:45 EST 05/05/2016 10:21 EST Lucy Elizabeth MD HEMATOLOGY & PF4 ORD ERABLES [facility] documented in this encounter Visit Diagnoses Not on filedocumented in this encounter Care Teams Hand Reamer Relationship Specialty Start Date End Date Lucy Elizabeth MD [address] [place] [phone] PCP - General 09/28/08 03/08/21 documented as of this encounter
--- OUTSIDE RECORDS SUMMARY | 2023-12-21 00:37 | XMS_ITS | Encounter Summary ---
Author Organization [facility] Address [address] [place] [address] Care Team Providers Care Emt P Name Role Phone Lucy Elizabeth MD Primary Care Provider [phone] Encounter Details Date Type Department Care Team (Late st Contact Info) Description 11/22/2017 Historical Results Only [facility] - Main [place] [address] [place] [address] Suyapa Duarte MD [address] [place] [phone] Social History Tobacco Use Types Packs/Day [...] Info) Description 01/23/2024 16:00 EST Office Visit [facility] [address] [place] [address] Scott Esquivel MD [address] [place] [address] [address] [place] [address] documented as of this encounter Procedures Procedure Name Priority Date/Time Associated Diagnosis Comments COMPREHENSIVE METABOLIC PANEL (CMP) Routine 11/22/2017 8:25 EDT documented in this encounter Results * (ABNORMAL) COMPREHENSIVE METABOLIC PANEL (CMP) (11/22/2017 8:25 EDT) Albumin % 4.5 3.4 - 4.9 g/dL 11/22/2017 13:33 [facility] ALKALINE PHOSPHATASE - [facility] 71 38 - 126 U/L 11/22/2017 13:33 [facility] BILIRUBIN TOTAL 0.4 0.2 - 1.3 mg/dL 11/22/2017 13:33 [facility] BUN - [facility] 15 10 - 26 mg/dL 11/22/2017 13:33 [facility] CALCIUM - [facility] 10.7(H) 8.5 - 10.5 mg/dL 11/22/2017 13:33 [facility] Chloride 101 96 - 110 mmol/L 11/22/2017 13:33 [facility] CO2 Total 28 21 - 32 mEq/L 11/22/2017 13:33 [facility] CREATININE 0.77 0.66 - 1.25 mg/dL 11/22/2017 13:33 [facility] eGFR >60 11/22/2017 13:33 [facility] Comment: Chronic renal impairment is defined as GFR <60 Multiply result by 1.210 for patients. Anion Gap 13 0 - 18 11/22/2017 13:33 [facility] GLUCOSE - [facility] 83 70 - 100 mg/dL 11/22/2017 13:33 [facility] Potassium 4.2 3.5 - 5.0 mEq/L 11/22/2017 13:33 [facility] Sodium 142 136 - 145 mEq/L 11/22/2017 13:33 EDT [facility] TOTAL PROTEIN - [facility] 7.8 6.2 - 8.2 gm/dL 11/22/2017 13:33 EDT [facility] SGOT/AST - [facility] 29 17 - 59 U/L 11/22/2017 13:33 EDT [facility] SGPT/ALT - [facility] 31 21 - 72 U/L 11/22/2017 13:33 EDT [facility] 11/22/2017 8:25 EDT 11/22/2017 12:04 EDT Narrative [facility] - 11/27/2017 6:14 EDT AOT: 11/27/17 0606: LIPID Suyapa Duarte MD CHEMISTRY & BLOOD GA S ORDERABLES [facility] documented in this encounter Visit Diagnoses Not on filedocumented in this encounter Care Teams Emt P Relationship Specialty Start Date End Date Lucy Elizabeth MD [address] [place] [phone] PCP - General 09/28/08 03/08/21 documented as of this encounter
--- OUTSIDE RECORDS SUMMARY | 2023-12-21 00:37 | XMS_ITS | Encounter Summary ---
Author Organization [facility] Address [address] [place] [address] Care Team Providers Care Cigar Machine Feeder Name Role Phone Lucy Elizabeth MD Primary Care Provider Reason for Visit * Reason Onset Date Comments Appointment Related 11/08/2018 Encounter Details Date Type Department Care Team (Late st Contact Info) Description 11/08/2018 Telephone [facility] [address] [id number] Therapy, Physical Appointment Related Social History Tobacco [...] - Hodan Parker - 11/08/2018 1021 EDT [facility]ERAPY - [address] [address] Person providing information? Bambi Ramírez Guardian: Dad Phone number: [phone] (Mom , Dad ) 1. Who recommended [...] 150 lbs 19. Name of Medical Vendor? [employer] 20. Are you receiving Physical Therapy, Occupational Therapy or Speech-Language Pathology Services?No 21. Are there any additional areas of function or concern that you would like help with? No 22. Do you have any other requests, comments, questions you would like to add prior to your appointment? No 23. To whom should we send an additional questionnaire (if needed)? - [facility] THERAP[facility] - [address] [address] Telephone Intake Information for Scheduling NEW Patients for Therapy Referring Provider: Naga Melendez MD Script/referral MD office faxed Primary Insurance: [facility] (Medicare) Secondary Insurance: Medicaid If Medicare: [...] agency? - Notes/other: Janes lives independently in [place] in [facility] apartment. He also has a small chair for travel that he uses. Mom and Dad live in [facility]. Part 1 - Zev Flores, [...] Info) Description 01/23/2024 16:00 EST Office Visit [facility] Neurology Clinic [address] [place] [address] Scott Esquivel MD [address] [facility]- [address] [place] [phone] documented as of this encounter Visit Diagnoses Not on filedocumented in this encounter Care Teams Cigar Machine Feeder Relationship Specialty Start Date End Date Lucy Elizabeth MD [address] [place] [phone] PCP - General 09/28/08 03/08/21 documented as of this encounter
--- OUTSIDE RECORDS SUMMARY | 2023-12-21 00:37 | XMS_ITS | Encounter Summary ---
Author Organization [facility] Address [address] [place] [address] Care Team Providers Care Puller Out Name Role Phone Lucy Elizabeth MD Primary Care Provider [phone] Encounter Details Date Type Department Care Team (Late st Contact Info) Description 05/27/2018 Historical Results Only [facility] - Main [place] [address] [place], [place] [id number] Amirah Vila PA [address] [place] [address] Social History Tobacco Use Types Packs/Day Years [...] [facility] [address] [place] [address] Scott Esquivel MD [address] [place], [place] [address] [address] [place] [phone] documented as of this encounter Procedures Procedure Name Priority Date/Time Associated Diagnosis Comments PTH INTACT Routine 05/27/2018 14:00 EDT PHOSPHORUS Routine 05/27/2018 14:00 EDT VALPROIC ACID LEVEL Routine 05/27/2018 1 4:00 EDT FREE T3 POC - [facility] Routine 05/27/2018 11 :46 EDT LIPID PANEL POC - [facility] Routine 9 11:46 EDT COMPREHENSIVE METABOLIC POC - [facility] Routine 05/27/2018 11:46 EDT FREE T4 POC - [facility] Routine 05/27/2018 11 :46 EDT THYROID STIM HORMONE POC - [facility] Routine 05/27/2018 11:46 EDT MAGNESIUM POC - CV Routine 05/27/2018 11:46 EDT CBC W/PLT & DIFF,POINT OF CARE - [facility] Routine 05/27/2018 11:46 EDT POCT CHOLESTEROL LDL ([facility]) Routine 05/27/2018 11:46 EDT documented in this encounter Results * VALPROIC ACID LEVEL (05/27/2018 14:00 EDT) Valproic Acid 79.7 50 - 100 ug/mL 05/27/2018 19:10 EDT [facility] Comment: Therapeutic Range: 50-100 ug/mL Toxic: ??>120 ug/mL 05/27/2018 14:0 0 EDT 05/27/2018 18:36 EDT [facility] - 05/27/2018 19:10 EDT Does PT Have a Latex Allergy? NO Amirah KING CHEMISTRY & BLOOD GA S ORDERABLES [facility] * PHOSPHORUS (05/27/2018 14:00 EDT) [facility] PHOSPHOROUS [facility] 3.8 2.5 - 4.5 mg/dL 05/27/2018 19:05 EDT [facility] 05/27/2018 14:0 0 EDT 05/27/2018 18:35 EDT [facility] - 05/27/2018 19:05 EDT Does PT Have a Latex Allergy? NO Amirah KING CHEMISTRY & BLOOD GA S ORDERABLES Performing Organization Address City/[facility]/ZIP Co de Phone Number [facility] * PTH INTACT (05/27/2018 14:00 EDT) [facility] PTH INTACT (ICMA) [facility] 42 19 - 88 pg/ml 05/28/2018 14:27 EDT [facility] Comment: Reference range based on normal calcium level. Test performed or referred by The [address] [id number] 05/27/2018 14:0 0 EDT 05/27/2018 18:36 EDT [facility] - 05/28/2018 14:27 EDT Does PT Have a Latex Allergy? NO Amirah KING CHEMISTRY & BLOOD GA S ORDERABLES [facility] * THYROID STIM HORMONE POC - [facility] (05/27/2018 11:46 EDT) [facility] THYROID STIM HORMONE [facility] 2.28 0.45 - 5.33 UIU/ML 05/28/2018 11:47 EDT [facility] 05/27/2018 11:4 6 EDT 05/27/2018 11:46 EDT Amirah KING CHEMISTRY & BLOOD GA S ORDERABLES [facility] * MAGNESIUM POC - [facility] (05/27/2018 11:46 EDT) Magnesium 2.00 1.60 - 2.30 MG/DL 05/28/2018 11:47 EDT [facility] 05/27/2018 11:4 6 EDT 05/27/2018 11:46 EDT Amirah KING CHEMISTRY & BLOOD GA S ORDERABLES Performing Organization Address City/[facility] Co de Phone Number [facility] * (ABNORMAL) LIPID PANEL POC - [facility] (05/27/2018 11:46 EDT) Triglyceride 364(H) 0.00 - 150.00 MG/DL 05/28/2018 11:47 EDT [facility] Cholesterol 161 0.00 - 200.00 MG/DL 05/28/2018 11:47 EDT [facility] HDL 36(L) 40.00 - 60.00 MG/DL 05/28/2018 11:47 EDT [facility] 05/27/2018 11:4 6 EDT 05/27/2018 11:46 EDT Amirah KING CHEMISTRY & BLOOD GA S ORDERABLES [facility] * (ABNORMAL) POCT CHOLESTEROL LDL ([facility]) (05/27/2018 11:46 EDT) LDL CHOLESTEROL - [facility] 52(L) 60 - 100 MG/DL 05/28/2018 11:47 EDT [facility] 05/27/2018 11:4 6 EDT 05/27/2018 11:46 EDT Amirah KING POINT OF CARE TEST O RDERABLES [facility] * FREE T4 POC - [facility] (05/27/2018 11:46 EDT) FREE T4 - [facility] 1.07 0.58 - 1.64 NG/DL 05/28/2018 11:47 EDT [facility] 05/27/2018 11:4 6 EDT 05/27/2018 11:46 EDT Amirah KING CHEMISTRY & BLOOD GA S ORDERABLES [facility] * FREE T3 POC - [facility] (05/27/2018 11:46 EDT) T3,FREE [facility] 3.88 2.40 - 4.00 PG/ML 05/28/2018 11:47 EDT [facility] 05/27/2018 11:4 6 EDT 05/27/2018 11:46 EDT Amirah KING CHEMISTRY & BLOOD GA S ORDERABLES [facility] * (ABNORMAL) COMPREHENSIVE METABOLIC POC - [facility] (05/27/2018 11:46 EDT) Pathologist [facility] Albumin % 4.6 3.50 - 5.00 G/DL 05/28/2018 11:47 EDT [facility] ALKALINE PHOSPHATASE - [facility] 68 38.00 - 126.00 U/L 05/28/2018 11:47 EDT [facility] BILIRUBIN TOTAL 0.4 0.20 - 1.30 MG/DL 05/28/2018 11:47 EDT [facility] BUN - [facility] 21(H) 7.00 - 20.00 MG/DL 05/28/2018 11:47 EDT [facility] CALCIUM - [facility] 10.8(H) 8.50 - 10.50 MG/DL 05/28/2018 11:47 EDT [facility] Chloride 101 98.00 - 107.00 MMOL/L 05/28/2018 11:47 T [facility] CO2 Total 27 22.00 - 30.00 MMOL/L 05/28/2018 11:47 [facility] CREATININE 0.9 0.70 - 1.50 MG/DL 05/28/2018 11:47 [facility] Anion Gap 12 7 - 17 MMOL/L 05/28/2018 11:47 [facility] GLUCOSE - [facility] 201(H) 70.00 - 100.00 MG/DL 05/28/2018 11:47 [facility] Potassium 4.1 3.50 - 5.10 MMOL/L 05/28/2018 11:47 [facility] Sodium 140 137.00 - 145.00 MMOL/L 05/28/2018 11:47 [facility] TOTAL PROTEIN - [facility] 7.5 6.30 - 8.20 G/DL 05/28/2018 11:47 [facility] SGOT/AST - [facility] 30 15.00 - 46.00 U/L 05/28/2018 11:47 [facility] SGPT/ALT - [facility] 33 13.00 - 69.00 U/L 05/28/2018 11:47 [facility] 05/27/2018 11:4 6 EDT 05/27/2018 11:46 EDT Amirah KING CHEMISTRY & BLOOD GA S ORDERABLES [facility] * (ABNORMAL) CBC W/PLT & DIFF,POINT OF CARE - [facility] (05/27/2018 11:46 EDT) Gran # 5.6 1.4 - 6.5 X10E3/UL 05/28/2018 11:47 EDT [facility] GRAN % - [facility] 60.5 42.2 - 75.2 % 05/28/2018 11:47 [facility] HEMATOCRIT - [facility] 54.5 35.0 - 60.0 % 05/28/2018 11:47 [facility] HEMOGLOBIN - [facility] 17.2 11.0 - 18.0 G/DL 05/28/2018 11:47 [facility] LYMPH # - [facility] 3.4 1.2 - 3.4 X10E3/UL 05/28/2018 11:47 [facility] LYMPH% - [facility] 36.6 20.5 - 51.1 % 05/28/2018 11:47 [facility] MEAN CORPUSCULAR HGB - [facility] 28.5 27.0 - 31.0 PG 05/28/2018 11:47 [facility] MEAN CORPUSCULAR HGB CONC - [facility] 31.5(L) 33.0 - 37.0 G/DL 05/28/2018 11:47 [facility] MEAN CELL VOLUME - [facility] 90.4 80.0 - 99.9 FL 05/28/2018 11:47 [facility] MONO # - [facility] 0.3 0.1 - 0.6 X10E3/UL 05/28/2018 11:47 [facility] MONO% - [facility] 2.9 1.7 - 9.3 % 05/28/2018 11:47 [facility] MEAN PLATELET VOLUME - [facility] 9.6 7.8 - 11.0 FL 05/28/2018 11:47 [facility] PLATELET COUNT 195 150 - 450 X10E3/UL 05/28/2018 11:47 [facility] RED BLOOD COUNT - [facility] 6.03(H) 4.00 - 6.00 X10E6/UL 05/28/2018 11:47 [facility] RED CELL DISTRI WIDTH - [facility] 14.6(H) 11.6 - 13.7 % 05/28/2018 11:47 [facility] WHITE BLOOD COUNT - [facility] 9.3 4.5 - 10.5 X10E3/UL 05/28/2018 11:47 [facility] 05/27/2018 11:4 6 EDT 05/27/2018 11:46 EDT Amirah KING CHEMISTRY & BLOOD GA S ORDERABLES [facility] documented in this encounter Visit Diagnoses Not on filedocumented in this encounter Care Teams Puller Out Relationship Specialty Start Date End Date Lucy Elizabeth MD [address] [place] [phone] PCP - General 09/28/08 03/08/21 documented as of this encounter
--- OUTSIDE RECORDS SUMMARY | 2023-12-21 00:37 | XMS_ITS | Encounter Summary ---
Author Organization [facility] Address [address] [place] [address] Care Team Providers Care Cartography Teacher Name Role Phone Lucy Elizabeth MD Primary Care Provider [phone] Encounter Details Date Type Department Care Team (Late st Contact Info) Description 05/25/2017 Historical Results Only [facility] - Main [place] [address] [place] [address] Suyapa Duarte MD [address] [place] [phone] Social History Tobacco Use Types Packs/Day [...] Office Visit [facility] [address] [place] [address] Scott Esquivel MD [address] [place] [address] [address] [place] [address] documented as of this encounter Procedures Procedure Name Priority Date/Time Associated Diagnosis Comments THYROID STIM HORMONE POC - [facility] Routine 05/25/2017 14:51 EDT URIC ACID Routine 05/25/2017 11:50 EDT VALPROIC ACID LEVEL Routine 05/25/2017 1 1:50 EDT documented in this encounter Results * THYROID STIM HORMONE POC - [facility] (05/25/2017 14:51 EDT) [facility] THYROID STIM HORMONE [facility] 0.98 0.45 - 5.33 UIU/ML 05/25/2017 14:51 EDT [facility] 05/25/2017 14:5 1 EDT 05/25/2017 14:51 EDT Suyapa Duarte MD CHEMISTRY & BLOOD GA S ORDERABLES [facility] * VALPROIC ACID LEVEL (05/25/2017 11:50 EDT) [facility] Valproic Acid 62.2 50 - 100 ug/mL 05/25/2017 18:32 EDT [facility] Comment: Therapeutic Range: 50-100 ug/mL Toxic: ??>120 ug/mL 05/25/2017 11:5 0 EDT 05/25/2017 18:00 EDT Narrative [facility] - 05/25/2017 18:32 EDT Does PT Have a Latex Allergy? NO Suyapa Duarte MD CHEMISTRY & BLOOD GA S ORDERABLES [facility] * URIC ACID (05/25/2017 11:50 EDT) URIC ACID - [facility] 5.8 3.9 - 9.0 mg/dL 05/25/2017 18:32 EDT [facility] 05/25/2017 11:5 0 EDT 05/25/2017 18:00 EDT Narrative [facility] - 05/25/2017 18:32 EDT Does PT Have a Latex Allergy? NO Suyapa Duarte MD CHEMISTRY & BLOOD GA S ORDERABLES [facility] documented in this encounter Visit Diagnoses Not on filedocumented in this encounter Care Teams Cartography Teacher Relationship Specialty Start Date End Date Lucy Elizabeth MD [address] [place] [phone] PCP - General 09/28/08 03/08/21 documented as of this encounter
--- OUTSIDE RECORDS SUMMARY | 2023-12-21 00:37 | XMS_ITS | Encounter Summary ---
Author Organization [facility] Address [address] [place] [address] Care Team Providers Care Drill Runner Name Role Phone Lucy Elizabeth MD Primary Care Provider Reason for Referral * Consult (Routine/Next Available) - Closed Specialty Diagnoses / Procedures Referred By Rubina perkins Referred To Contact Diagnoses Spastic quadriplegic cerebral palsy (HCC-CMS) Naga Melendez MD [address] [place] [address] Referral ID Status Reason Start Date Expiration Date V isits Requested Visits Authorized [id number] Closed Specialty Services Required 05/07/2016 1 1 Question Answer Medication to be Prior Authorized: Botox for next visit Comments Botox 400 units Encounter Details Date Type Department Care Team (Late st Contact Info) Description 05/07/2016 Orders Only [facility] Physical Medicine & Rehabilitation [place] [address] [place] [address] Naga Melendez MD [address] [place] [phone] Spastic quadriplegic cerebral palsy (CMS-HCC) (Primary Dx) [...] Info) Description 01/23/2024 16:00 EST Office Visit [facility] Neurology Clinic [address] [place] [address] Scott Esquivel MD [address] [facility] [place] [phone] Scheduled Referrals Name Type Priority Associated Diagnoses Orde r Schedule AMB MEDICATION PRIOR AUTHORIZATION Outpatient Referral Routine Spastic quadriplegic cerebral palsy (CMS-HCC) Ordered: 05/07/2016 documented as of this encounter Visit Diagnoses Diagnosis 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
--- OUTSIDE RECORDS SUMMARY | 2023-12-21 00:37 | XMS_ITS | Encounter Summary ---
Author Organization [facility] Address [address] [place] [address] Care Team Providers Care Electronic Data Processing Auditor Name Role Phone Lucy Elizabeth MD Primary Care Provider [phone] Reason for Visit * Reason Comments Other BOTOX INJECTION BILA T HAMSTRING Encounter Details Date Type Department Care Team (Latest Contact Info) Description 05/10/2016 16:00 EST Office Visit [facility] Physical Medicine & Rehabilitation [place] [address] Naga Melendez MD [address] [place] [address] [address] [place], [place] [phone] 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HCC-CMS) (Primary Dx) Social History [...] Physical Medicine and Rehabilitation Naga Melendez M.D. [address] [place] [address] Discharge Instructions after Botulinum Toxin Injections Diet [...] for any questions you may have at [phone] x [phone]. The office is open Sunday-Sunday from 8:00 am to 5:00pm. On weekends or evenings, if you have a serious problem, please call your Feed Crusher, Primary CarePhysician or go to your local Emergency Room. If for any reason a follow-up appointment was not provided or you need to reschedule an appointment, please call our office, the [facility] Clinic ([phone] or [phone]) or the [facility] ([phone] or [phone]) if that is where you are seen. 06/12ss documented in this encounter Progress Notes * José Luis Rm, RN - 05/10/2016 1600 EST Botulinum toxin Lot #: [id number] Botulinum toxin expiration date: Botulinum toxin [facility] # 7287-9202-02 Total Botulinum toxin units injected: 400 Total [...] Info) Description 01/23/2024 16:00 EST Office Visit [facility] Neurology Clinic [address] [place] [address] Scott Esquivel MD [address] [facility] [address] [place] [address] documented as of this encounter Visit Diagnoses Diagnosis 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[facility]-CMS)- Primary Congenital quadriplegia documented in this encounter Care Teams Electronic Data Processing Auditor Relationship Specialty Start Date End Date Lucy Elizabeth MD [address] [place] [phone] PCP - General 09/28/08 03/08/21 documented as of this encounter
--- OUTSIDE RECORDS SUMMARY | 2023-12-21 00:38 | XMS_ITS | Encounter Summary ---
Author Organization [facility] Address [address] [place] [address] Care Team Providers Care Harp Action Assembler Name Role Phone Lucy Elizabeth MD Primary Care Provider [phone] Reason for Referral * Consult (Routine/Next Available) - Denied Specialty Diagnoses / Procedures Referred By Rubina t Referred To Contact Diagnoses 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HCC-CMS) Naga Melendez MD [address] [place] [address] Referral ID Status Reason Start Date Expiration Date V isits Requested Visits Authorized [id number] Denied Specialty Services Required 08/31/2011 1 0 Question Answer Medication to be Prior Authorized: Botox for next visit. Comments Botox 400 units Reason for Visit * Reason Comments Botox Injection Encounter Details Date Type Department Care Team (Latest Contact Info) Description 08/31/2011 13:30 EDT Office Visit [facility] Rehabilitation Therapy [address] [place] [address] Naga Melendez MD [address] [place] [address] 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HCC-CMS) (Primary Dx) Social [...] Rehabilitation Naga Melendez M.D. [address] [place] [address] Discharge Instructions after Botulinum Toxin Injections Diet [...] for any questions you may have at [phone] x 2. The office is open Sunday-Sunday from 8:00 am to 5:00pm. On weekends or evenings, if you have a serious problem, please call your Nut Feeder, Primary CarePhysician or go to your local Emergency Room. If for any reason a follow-up appointment was not provided or you need to reschedule an appointment, please call our office, the [facility] ([phone] or [phone]) or the [facility] ([phone] or [phone]) if that is where you are seen. 06/12ss documented in this encounter Progress Notes * Naga Melendez MD - 09/01/2011 0993 EDT Botulinum Toxin Injection Procedure Note Pre-Procedure [...] 08/31/2011 1440 EDT Botulinum toxin Lot #: [id number] Botulinum toxin expiration date: Feb 2014 Botulinum toxin FORMERLY NAMED [facility] # 1019-8513-17 Total Botulinum toxin units injected: 400 Total Botulinum toxin units wasted: 0 documented in this encounter Plan of Treatment Upcoming Encounters Date Type Department Care Team (Late st Contact Info) Description 01/23/2024 16:00 EST Office Visit [facility] Neurology Clinic [address] [place], [place] [address] Scott Esquivel MD 130 [facility] [address] [place] [phone] Scheduled Referrals Name Type Priority Associated Diagnoses Orde r Schedule AMB MEDICATION PRIOR AUTHORIZATION Outpatient Referral Routine 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[facility]) Ordered: 08/31/2011 documented as of this encounter Visit Diagnoses Diagnosis 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[facility])- Primary Congenital quadriplegia documented in this encounter [...] 07/18/2012 added in this encounter Care Teams Harp Action Assembler Relationship Specialty Start Date End Date Lucy Elizabeth MD [address] [place] [phone] PCP - General 09/28/08 03/08/21 documented as of this encounter
--- OUTSIDE RECORDS SUMMARY | 2023-12-21 00:38 | XMS_ITS | Encounter Summary ---
Author Organization [facility] Address [address] [place] [address] Care Team Providers Care Conference Manager Name Role Phone Lucy Elizabeth MD Primary Care Provider [phone] Reason for Visit * Reason Comments Botox Injection Encounter Details Date Type Department Care Team (Latest Contact Info) Description 07/21/2010 14:00 EDT Office Visit [facility] Rehabilitation Therapy [facility] [address] [place], [place] [address] Naga Melendez MD [address] [place] [address] Quadriplegic infantile cerebral palsy (HCC-CMS) (Primary Dx) [...] Medicine and Rehabilitation Naga Melendez M.D. [address] [place] [address] Discharge Instructions after Botulinum Toxin Injections Diet [...] for any questions you may have at [phone] x 2. The office is open Sunday-Sunday from 8:00 am to 5:00pm. On weekends or evenings, if you have a serious problem, please call your Tubular Products Fabricator, Primary CarePhysician or go to your local Emergency Room. If for any reason a follow-up appointment was not provided or you need to reschedule an appointment, please call our office, the [facility] ([phone] or [phone]) or the [facility] ([phone] or [phone]) if that is where you are seen. 06/12ss documented in this encounter Progress Notes * Nereida Javier - 07/21/2010 1436 EDT Physical Medicine and Rehabilitation Naga Melendez M.D. [address] [place] [address] Discharge Instructions after Botulinum Toxin Injections Diet [...] Double vision Breathing difficulties Please contact Dr. Melnedez???s office for any questions you may have at [phone] x 2. The office is open Sunday-Sunday from 8:00 am to 5:00pm. On weekends or evenings, if you have a serious problem, please call your Tubular Products Fabricator, Primary CarePhysician or go to your local Emergency Room. If for any reason a follow-up appointment was not provided or you need to reschedule an appointment, please call our office, the [facility] ([phone] or [phone]) or the [facility] ([phone] or [phone]) if that is where you are seen. Physical Medicine and Rehabilitation Naga Melendez M.D. [address] [place] [address] Discharge Instructions after Botulinum Toxin Injections Diet [...] for any questions you may have at [phone] x 2. The office is open Sunday-Sunday from 8:00 am to 5:00pm. On weekends or evenings, if you have a serious problem, please call your Tubular Products Fabricator, Primary CarePhysician or go to your local Emergency Room. If for any reason a follow-up appointment was not provided or you need to reschedule an appointment, please call our office, the [facility] ([phone] or [phone]) or the [facility] ([phone] or [phone]) if that is where you are seen. Physical Medicine and Rehabilitation Naga Melendez M.D. [address] [place] [address] Discharge Instructions after Botulinum Toxin Injections Diet [...] for any questions you may have at [phone] x 2. The office is open Sunday-Sunday from 8:00 am to 5:00pm. On weekends or evenings, if you have a serious problem, please call your Tubular Products Fabricator, Primary CarePhysician or go to your local Emergency Room. If for any reason a follow-up appointment was not provided or you need to reschedule an appointment, please call our office, the [facility] ([phone] or [phone]) or the [facility] ([phone] or [phone]) if that is where you are seen. [...] [facility] [address] [place] [address] Scott Esquivel MD 130 [facility] [address] [place] [address] documented as of this encounter Visit Diagnoses Diagnosis 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[facility])- Primary Congenital quadriplegia documented in [...] Sig Dispensed Refills Start Date End Date Pptwupc-Vyltraluw-Heks 333-133-5 mg Tab Take 2 Tabs by mouth daily. added in this encounter Care Teams Conference Manager Relationship Specialty Start Date End Date Lucy Elizabeth MD [address] [place] [phone] PCP - General 09/28/08 03/08/21 documented as of this encounter
--- OUTSIDE RECORDS SUMMARY | 2023-12-21 00:38 | XMS_ITS | Encounter Summary ---
Author Organization [facility] Address [address] [place] [address] Care Team Providers Care Market Basket Maker Name Role Phone Lucy Elizabeth MD Primary Care Provider [phone] Reason for Visit * Reason Comments Follow-up Encounter Details Date Type Department Care Team (Latest Contact Info) Description 07/14/2010 14:00 EDT Office Visit [facility] Rehabilitation Therapy [address] [address] Naga Melendez MD [address] [place] [address] Quadriplegic infantile cerebral palsy (HCC-CMS) (Primary Dx) [...] have 30 to 40 degree knee contractures atal-nu-qijcg. He was able to do a minimal [...] arm as well. He should have an aircraft armorer or therapist take a look at his [...] - HARRIS Job ID: SM Doc ID: [id number] Ext Doc ID: [id number] cc: * Naga Melendez MD - 07/14/2010 1430 EDT This office note has been dictated. documented in this encounter Plan of Treatment Upcoming Encounters Date Type Department Care Team (Late st Contact Info) Description 01/23/2024 16:00 EST Office Visit [facility] Neurology Clinic [address] [place] [address] Scott Esquivel MD 130 [facility] [address] [place] [address] documented as of this encounter Visit Diagnoses Diagnosis 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[facility]-CMS)- Primary Congenital quadriplegia documented in this encounter Historical Medications * This list may reflect changes made after this encounter. Medication Sig Dispensed Refills Start Date End Date METFORMIN HCL (METFORMIN ORAL) Take 500 mg by mouth 2 times daily. 07/14/2010 added in this encounter Care Teams Market Basket Maker Relationship Specialty Start Date End Date Lucy Elizabeth MD [address] [place] [phone] PCP - General 09/28/08 03/08/21 documented as of this encounter
--- OUTSIDE RECORDS SUMMARY | 2023-12-21 00:38 | XMS_ITS | Encounter Summary ---
Author Organization [facility] Address [address] [place] [address] Care Team Providers Care Keno Writer/Runner Name Role Phone uLcy Elizabeth MD Primary Care Provider [phone] Reason for Referral * Consult (Routine/Next Available) - Denied Specialty Diagnoses / Procedures Referred By Rubina perkins Referred To Contact Physical Medicine and Rehabilitation / Physical Medicine and Rehab Diagnoses 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[facility]) Lower extremity edema Devon Melendez MD [address] [place] [address] Devon Melendez MD [address] [place], [place] [phone] Referral ID Status Reason Start Date Expiration Date V isits Requested Visits Authorized [id number] Denied Specialty Services Required 07/18/2012 1 0 Question Answer Medication to be Prior Authorized: BOTOX FOR today 07/18 Comments Botox 400 units * Consult (Routine/Next Available) - Closed Specialty Diagnoses / Procedures Referred By Rubina perkins Referred To Contact Rehab Therapies Diagnoses Lower extremity edema 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HCC-CMS) Devon Melendez MD [address] [place] [address] [facility] [address] [place] [address] Referral ID Status Reason Start Date Expiration Date V isits Requested Visits Authorized [id number] Closed Specialty Services Required 07/18/2012 1 1 Question Answer Reason for Request: Increasing foot edema Comments Please treat and then measure for new garments. Reason for Visit * Reason Comments Botox Injection Encounter Details Date Type Department Care Team (Latest Contact Info) Description 07/18/2012 13:00 EDT Office Visit [facility] Rehabilitation Therapy [facility] [address] [place], [place] [address] Devon Melendez MD [address] [place] [phone] 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HCC-CMS) (Primary Dx); Lower extremity [...] Medicine and Rehabilitation Devon Melendez M.D. [address] [place] [address] Discharge Instructions after Botulinum Toxin Injections Diet [...] for any questions you may have at [phone] x 2. The office is open Sunday-Sunday from 8:00 am to 5:00pm. On weekends or evenings, if you have a serious problem, please call your Radio Installer, Primary CarePhysician or go to your local Emergency Room. If for any reason a follow-up appointment was not provided or you need to reschedule an appointment, please call our office, the [facility] ([phone] or [phone]) or the [facility] ([phone] or [phone]) if that is where you are seen. 06/12ss documented in this encounter Discharge Disposition Disposition Code Departure Means Destination Auto Discharge documented in this encounter Progress Notes * Devon Melendez MD - 07/18/2012 4964 EDT Botulinum Toxin Injection Procedure Note Pre-Procedure [...] from physical therapy lymphedema assessment here at [facility] to work on manual lymphedema drainage program [...] 07/18/2012 1338 EDT Botulinum toxin Lot #: [id number] Botulinum toxin expiration date: Jun 2014 Botulinum toxin NEC # [id number] Total Botulinum toxin units injected: 400 Total Botulinum toxin units wasted: 0 documented in this encounter Procedure Notes * PATIENT REGISTRATION MANAGER, FAVIO 2 - 07/26/2012 1149 EDTAssociated Order(s): ORDERS - SCANNED documented in this encounter Miscellaneous Notes * Scanned Note-Null - PATIENT REGISTRATION MANAGER, SCAN 2 - 07/26/2012 1043 EDT * Addendum Note - Devon Melendez MD - 07/18/2012 1410 EDTAddended by: DEVON MELENDEZ on: 07/18/2012 14:10 Modules accepted: Orders documented in this encounter Plan of Treatment Upcoming Encounters Date Type Department Care Team (Late st Contact Info) Description 01/23/2024 16:00 EST Office Visit [facility] Neurology Clinic [address] [place] [address] Scott Esquivel MD 130 [facility] [place] [address] Scheduled Referrals Name Type Priority Associated Diagnoses Orde r Schedule AMB CONSULT PT LYMPHEDEMA EVAL AND TREAT Outpatient Referral Routine Lower extremity edema 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[facility]) Ordered: 07/18/2012 AMB MEDICATION PRIOR AUTHORIZATION Outpatient Referral Routine 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[facility]) Lower extremity edema Ordered: 07/18/2012 documented as of this encounter Procedures Procedure Name Priority Date/Time Associated Diagnosis Comments ORDERS - SCANNED 07/26/2012 11:4 9 EDT documented in this encounter Results * ORDERS - SCANNED (07/26/2012 11:49 EDT) 07/26/2012 11:4 9 EDT Narrative 07/26/2012 13:00 EDT Procedure Note PATIENT REGISTRATION MANAGER, SCAN 2 - 07/26/2012 11:49 EDT Scan 2 Ground Control Approach Technician ADMISSION ORDERABLE S documented in this encounter Visit Diagnoses Diagnosis 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[facility])- Primary Congenital quadriplegia Lower extremity edema Edema [...] 07/18/2012 documented in this encounter Care Teams Keno Writer/Runner Relationship Specialty Start Date End Date Lucy Elizabeth MD [address] [place] [phone] PCP - General 09/28/08 03/08/21 documented as of this encounter
--- OUTSIDE RECORDS SUMMARY | 2023-12-21 00:38 | XMS_ITS | Encounter Summary ---
Author Organization [facility] Address [address] [place] [address] Care Team Providers Care Senior Analyst Market Intelligence Name Role Phone Lucy Elizabeth MD Primary Care Provider [phone] Reason for Referral * Consult (Routine) - Closed Specialty Diagnoses / Procedures Referred By Rubina perkins Referred To Contact Physical Medicine and Rehabilitation Diagnoses 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HCC-CMS) Devon Melendez MD [address] [place] [address] [address] [address] Phone: [phone] Referral ID Status Reason Start Date Expiration Date V isits Requested Visits Authorized [id number] Closed Specialty Services Required 09/29/2010 1 1 Question Answer Medication to be Prior Authorized: For next visit. Comments Botox 400 units Reason for Visit * Reason Comments Follow-up Encounter Details Date Type Department Care Team (Latest Contact Info) Description 09/28/2010 15:30 EDT Office Visit [facility] Rehabilitation Therapy - [facility] [address] [place] [phone] Devon Melendez MD [address] [place] [address] Quadriplegic infantile cerebral palsy (HCC-CMS) (Primary [...] Info) Description 01/23/2024 16:00 EST Office Visit [facility] Neurology Clinic [address] [place] [address] Scott Esquivel MD [address] [place] [address]- [address] [place] [phone] Scheduled Referrals Name Type Priority Associated Diagnoses Order Schedule AMB MEDICATION PRIOR AUTHORIZATION Outpatient Referral Routine Quadriplegic infantile cerebral palsy (HCC-CMS) Ordered: 09/29/2010 documented as of this encounter Visit Diagnoses Diagnosis 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HCC-CMS)- Primary Congenital quadriplegia documented in this encounter Care Teams Senior Analyst Market Intelligence Relationship Specialty Start Date End Date Lucy Elizabeth MD [address] [place] [phone] PCP - General 09/28/08 03/08/21 documented as of this encounter
--- OUTSIDE RECORDS SUMMARY | 2023-12-21 00:38 | XMS_ITS | Encounter Summary ---
Author Organization [facility] Address [address] [place] [address] Care Team Providers Care Inhalation Therapy Aide Name Role Phone Lucy Elizabeth MD Primary Care Provider [phone] Encounter Details Date Type Department Care Team (Late st Contact Info) Description 07/18/2012 Documentation Visit [facility] Rehabilitation Therapy - [address] [phone] Mohini Rivas, RN [address] [place] [address] Social History Tobacco Use Types Packs/Day Years Used Date Smoking Tobacco: Never Assessed Sex and Gender Information Value Date Recorded Sex Assigned at Not on file Gender Identity Male 06/12/2019 8:16 EDT Sexual Orientation Not on file documented as of this encounter Progress Notes * Mohini Rivas, KAYLEN - 07/18/2012 2637 EDT Referral for evaluation and treatment of lower extremity edema from physiatry. [place], and his parents live in [place]. They prefer he be seen in the [facility], as it is a long drive for both of them to come to [employer]. This nurse gave them a list of lymphedema providers that are in the [facility] area, including [facility], with w otoniel the patient is already receiving services. Janes's mother will call Dr Melendez's office aftershe talks with [facility], to make arrangements to have the referral faxed over [facility]. documented in this encounter Plan of Treatment Upcoming Encounters Date Type Department Care Team (Late st Contact Info) Description 01/23/2024 16:00 EST Office Visit [facility] Neurology Clinic [address] [place] [address] Scott Esquivel MD 130 [facility]-A [address] [place] [address] documented as of this encounter Visit Diagnoses Not on filedocumented in this encounter Care Teams Inhalation Therapy Aide Relationship Specialty Start Date End Date Lucy Elizabeth MD [address] [place] [phone] PCP - General 09/28/08 03/08/21 documented as of this encounter
--- OUTSIDE RECORDS SUMMARY | 2023-12-21 00:38 | XMS_ITS | Encounter Summary ---
Author Organization [facility] Address [address] [place] [address] Care Team Providers Care Clinical Research Assistant Name Role Phone Lucy Elizabeth MD Primary Care Provider [phone] Reason for Referral * Consult (Routine) - Closed Specialty Diagnoses / Procedures Referred By Contac t Referred To Contact Physical Medicine and Rehabilitation Diagnoses 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[facility]) Naga Melendez MD [address] [place], [place] [address] [address] [address] Phone: [phone] Referral ID Status Reason Start Date Expiration Date V isits Requested Visits Authorized [id number] Closed Specialty Services Required 12/03/2009 1 1 Question Answer Medication to be Prior Authorized: Botox for next visit. Comments Botox 400 units * Consult, Test and Treat (Routine) - Closed Specialty Diagnoses / Procedures Referred By Contac t Referred To Contact Diagnoses 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[facility]) Naga Melendez MD [address] [place] [address] [place] [address] Referral ID Status Reason Start Date Expiration Date V isits Requested Visits Authorized [id number] Closed Specialty Services Required 12/03/2009 1 1 Question Answer Reason for Request: To assist in seating evaluation with [facility]. Reason for Visit * Reason Comments Follow-up Encounter Details Date Type Department Care Team (Latest Contact Info) Description 12/03/2009 13:00 EDT Office Visit [facility] Rehabilitation Therapy [address] [place] [address] Naga Melendez MD [address] [place] [address] Quadriplegic infantile cerebral palsy (HCC-CMS) (Primary Dx) Social History Tobacco Use Types Packs/Day Years Used Date Smoking Tobacco: Never Assessed Sex and Gender Information Value Date Recorded Sex Assigned at Not on file Gender Identity Male 06/12/2019 8:16 EDT Sexual Orientation Not on file documented as of this encounter Progress Notes * Naga Melendez MD - 12/13/2009 7378 EDT PHYSICAL MEDICINE / REHABILITATION PROGRESS/FOLLOWUP NOTE [...] is going to have an appointment with [facility] in [place], and they would like a physical therapy script to go with them for the visit for wheelchair seating. We will fax that to [facility]. MEDICATIONS: Were reviewed. OBJECTIVE: On exam, Janes [...] has greatly improved his independence within his home,oqtb-yi-xyawo for pressure relief and leg elevators for lower extremity edema. I wrote a script forphysical therapist to join Marcos Arzate at [facility] for the seating evaluation and I will review and sign off on the wheelchair prescription once it is completed. We will also schedule an appointment for him to come back in 6 weeks for reevaluation and potential repeat injections at that time. Electronically Signed by Naga Melendez MD 12/13/2009 13:18 Naga Melendez MD - Naga Melendez MD - [facility] Job ID: SM Doc ID: [id number] Ext Doc ID: [id number] cc: * Naga Melendez MD - 12/03/2009 1334 EDT This office note has been dictated. documented in this encounter Plan of Treatment Upcoming Encounters Date Type Department Care Team (Late st Contact Info) Description 01/23/2024 16:00 EST Office Visit [facility] Neurology Clinic [address] [place] [address] Scott Esquivel MD 130 [facility]-A [address] [place] [address] Scheduled Referrals Name Type Priority Associated Diagnoses Order Schedule AMB CONSULT PHYSICAL THERAPY Outpatient Referral Routine Quadriplegic infantile cerebral palsy ([facility]) Ordered: 12/03/2009 AMB MEDICATION PRIOR AUTHORIZATION Outpatient Referral Routine Quadriplegic infantile cerebral palsy ([facility]) Ordered: 12/03/2009 documented as of this encounter Visit Diagnoses Diagnosis 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[facility])- Primary Congenital quadriplegia documented in this encounter Historical Medications * This list may reflect changes made after this encounter. Medication Sig Dispensed Refills Start Date End Date metformin (GLUCOPHAGE) 500 mg tablet Take 500 mg by mouth daily. 12/03/2009 01/21/2010 added in this encounter Care Teams Clinical Research Assistant Relationship Specialty Start Date End Date Lucy Elizabeth MD [address] [place] [phone] PCP - General 09/28/08 03/08/21 documented as of this encounter
--- OUTSIDE RECORDS SUMMARY | 2023-12-21 00:38 | XMS_ITS | Encounter Summary ---
Author Organization [facility] Address [address] [place] [address] Care Team Providers Care Dubbing Machine Operator Name Role Phone Lucy Elizabeth MD Primary Care Provider [phone] Reason for Referral * Consult (Routine/Next Available) - Closed Specialty Diagnoses / Procedures Referred By Rubina perkins Referred To Contact Physical Medicine and Rehab Diagnoses 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HCC-CMS) Naga Melendez MD [address] [address] Naga Melendez MD [address] [place] [phone] Referral ID Status Reason Start Date Expiration Date V isits Requested Visits Authorized [id number] Closed Specialty Services Required 12/09/2013 1 1 Question Answer Medication to be Prior Authorized: Botox for next visit Comments Botox 400 units Encounter Details Date Type Department Care Team (Late st Contact Info) Description 12/09/2013 Orders Only [facility] Rehabilitation Therapy - [address] [address] Naga Melendez MD [address] [place] [address] [phone] 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HCC-CMS) (Primary Dx) Social History [...] [facility] [address] [place] [address] Scott Esquivel MD 130 [facility] [address] [place] [phone] Scheduled Referrals Name Type Priority Associated Diagnoses Orde r Schedule AMB MEDICATION PRIOR AUTHORIZATION Outpatient Referral Routine 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HCC-CMS) Ordered: 12/09/2013 documented as of this encounter Visit Diagnoses Diagnosis 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HCC-CMS)- Primary Congenital quadriplegia documented in this encounter Care Teams Dubbing Machine Operator Relationship Specialty Start Date End Date Lucy Elizabeth MD [address] [place] [phone] PCP - General 09/28/08 03/08/21 documented as of this encounter
--- OUTSIDE RECORDS SUMMARY | 2023-12-21 00:38 | XMS_ITS | Encounter Summary ---
Author Organization [facility] Address [address] [place] [address] Care Team Providers Care Personnel Assistant Name Role Phone Lucy Elizabeth MD Primary Care Provider [phone] Reason for Visit * Reason Comments Botox Injection * Consult (Routine/Next Available) - Closed Specialty Diagnoses / Procedures Referred By Rubina perkins Referred To Contact Physical Medicine and Rehabilitation / Physical Medicine and Rehab Diagnoses 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HCC-CMS) Naga Melendez MD [address] [place] [address] Naga Melendez MD [address] [place] [address] Referral ID Status Reason Start Date Expiration Date V isits Requested Visits Authorized [id number] Closed Specialty Services Required 11/20/2012 11/19/2013 4 4 Encounter Details Date Type Department Care Team (Latest Contact Info) Description 06/13/2013 14:00 EDT Office Visit [facility] Rehabilitation Therapy - [address] 607396 Naga Melendez MD [address] [place] [address] [phone] 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HCC-CMS) (Primary Dx) Social History [...] Notes * Naga Melendez MD - 06/13/2013 1694 EDT Botulinum Toxin Injection Procedure Note Pre-Procedure [...] toxin expiration date: DEC 2015 Botulinum toxin [facility] # [id number] Total Botulinum toxin units injected: 400 Total Botulinum toxin units wasted: 0 documented in this encounter Plan of Treatment Upcoming Encounters Date Type Department Care Team (Late st Contact Info) Description 01/23/2024 16:00 EST Office Visit [facility] Neurology Clinic [address] [place] [address] Scott Esquivel MD 130 [facility] [address] [place] [address] documented as of this encounter Visit Diagnoses Diagnosis 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HCC-CMS)- Primary Congenital quadriplegia documented in this encounter Care Teams Personnel Assistant Relationship Specialty Start Date End Date Lucy Elizabeth MD [address] [place] [phone] PCP - General 09/28/08 03/08/21 documented as of this encounter
--- OUTSIDE RECORDS SUMMARY | 2023-12-21 00:38 | XMS_ITS | Encounter Summary ---
Author Organization [facility] Address [address] [place] [address] Care Team Providers Care Acute Care Nursing Assistant Name Role Phone Unavailable Primary Care Provider Unavailabl e Encounter Details Date Type Department Care Team (Late st Contact Info) Description 01/09/2008 14:27 EST Hospital Encounter [facility] [address] [place] [address] Naga Melendez MD [address] [place] [address] [address] [place] [address] Social History Tobacco Use Types Packs/Day Years [...] Info) Description 01/23/2024 16:00 EST Office Visit [facility] Neurology Clinic [address] [place] [address] Scott Esquivel MD 130 [facility] [address] [place] [address] documented as of this encounter Visit Diagnoses Not on filedocumented in this encounter
--- OUTSIDE RECORDS SUMMARY | 2023-12-21 00:38 | XMS_ITS | Encounter Summary ---
Author Organization [facility] Address [address] [place] [address] Care Team Providers Care Color Printer Operator Name Role Phone Lucy Elizabeth MD Primary Care Provider [phone] Reason for Referral * Consult (Routine/Next Available) - Closed Specialty Diagnoses / Procedures Referred By Conteusebia t Referred To Contact Physical Medicine and Rehabilitation / Physical Medicine and Rehab Diagnoses 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[facility]) Naga Melendez MD 373 [facility] [address] [place] [address] Naga Melendez MD [address] [place] [address] [place] [phone] Referral ID Status Reason Start Date Expiration Date V isits Requested Visits Authorized [id number] Closed Specialty Services Required 06/11/2013 1 1 Question Answer Medication to be Prior Authorized: Botox for next visit. Comments Botox 400 units Encounter Details Date Type Department Care Team (Late st Contact Info) Description 06/11/2013 Orders Only [facility] Rehabilitation Therapy - [address] [phone] Naga Melendez MD [address] [place] [address] [place] [address] [phone] 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[facility]-CMS) (Primary Dx) Social History Tobacco Use Types [...] Office Visit [facility] Neurology Clinic [address] [place] [address] Scott Esquivel MD 130 [facility] [address] [place] [phone] Scheduled Referrals Name Type Priority Associated Diagnoses Orde r Schedule AMB MEDICATION PRIOR AUTHORIZATION Outpatient Referral Routine 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HCC-CMS) Ordered: 06/11/2013 documented as of this encounter Visit Diagnoses Diagnosis 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[facility]-CMS)- Primary Congenital quadriplegia documented in this encounter Care Teams Color Printer Operator Relationship Specialty Start Date End Date Lucy Elizabeth MD [address] [place] [phone] PCP - General 09/28/08 03/08/21 documented as of this encounter
--- OUTSIDE RECORDS SUMMARY | 2023-12-21 00:38 | XMS_ITS | Encounter Summary ---
Author Organization [facility] Address [address] [place] [address] Care Team Providers Care Fixture Builder Name Role Phone Unavailable Primary Care Provider Unavailabl e Encounter Details Date Type Department Care Team (Late st Contact Info) Description 10/28/2003 12:02 EDT Hospital Encounter [address] [address] Manuel Nunez MD [address] [place] [address], [address] [place] [phone] Discharge Disposition: Auto Discharge Social History Tobacco [...] Description 01/23/2024 16:00 EST Office Visit [facility] Neurology Clinic [address] [place] [address] Scott Esquivel MD 130 [facility] [address] [place] [address] documented as of this encounter [...] unable to void. /tns Manuel Nunez MD G US ORDERAB LES documented in this encounter Visit Diagnoses Not on filedocumented in this encounter
--- OUTSIDE RECORDS SUMMARY | 2023-12-21 00:38 | XMS_ITS | Encounter Summary ---
Author Organization [facility] Address [address] [place] [address] Care Team Providers Care Gas Appliance Repairer Name Role Phone Lucy Elizabeth MD Primary Care Provider [phone] Reason for Visit * Reason Comments Botox Injection Encounter Details Date Type Department Care Team (Latest Contact Info) Description 01/08/2012 13:30 EST Office Visit [facility] Rehabilitation Therapy [address] [address] Naga Melendez MD [address] [place] [address] 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[facility]) (Primary Dx) Discharge Disposition: Auto Discharge Social [...] Notes * Naga Melendez MD - 01/08/2012 1747 EST Botulinum Toxin Injection Procedure Note Pre-Procedure [...] toxin expiration date: MAY 2014 Botulinum toxin [facility] # [id number] Total Botulinum toxin units injected: 400 Total Botulinum toxin units wasted: 0 documented in this encounter Plan of Treatment Upcoming Encounters Date Type Department Care Team (Late st Contact Info) Description 01/23/2024 16:00 EST Office Visit [facility] Neurology Clinic [address] [place] [address] Scott Esquivel MD [address] [place] [address]-[address] [place] [address] documented as of this encounter Visit Diagnoses Diagnosis 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HCC-CMS)- Primary Congenital quadriplegia documented in this encounter Care Teams Gas Appliance Repairer Relationship Specialty Start Date End Date Lucy Elizabeth MD [address] [place] [phone] PCP - General 09/28/08 03/08/21 documented as of this encounter
--- OUTSIDE RECORDS SUMMARY | 2023-12-21 00:38 | XMS_ITS | Encounter Summary ---
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 [address] [place] [address] Discharge Instructions after Botulinum Toxin Injections Diet [...] for any questions you may have at [phone] x 2. The office is open Sunday-Sunday from 8:00 am to 5:00pm. On weekends or evenings, if you have a serious problem, please call your Carton Marker Machine, Primary CarePhysician or go to your local Emergency Room. If for any reason a follow-up appointment was not provided or you need to reschedule an appointment, please call our office, the [facility] ([phone] or [phone]) or the [facility] ([phone] or [phone]) if that is where you are seen. [...] to maintain weightbaring and transfers. Work with tubi-felt cutting machine operator for feet to try and further improve edema reduction. An After Visit Summary was printed and given to the patient. * José Luis Rm, RN - 04/03/2012 1330 EST Botulinum toxin Lot #: [id number] Botulinum toxin expiration date: July2014 Botulinum toxin 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 Medication Sig Dispensed Refills Start Date End Date celecoxib (CELEBREX) 100 mg capsule Take 1 Capsule by mouth as needed. added in this encounter Care Teams Test Administrator Relationship Specialty Start Date End Date Lucy Elizabeth MD [address] [place] [phone] PCP - General 09/28/08 03/08/21 documented as of this encounter
--- OUTSIDE RECORDS SUMMARY | 2023-12-21 00:38 | XMS_ITS | Encounter Summary ---
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[facility]) Naga Melendez MD [address] [place] [address] [place] [address] Naga Melendez MD [address] [address] Referral ID Status Reason Start Date Expiration Date V isits Requested Visits Authorized [id number] Closed Specialty Services Required 11/20/2012 11/19/2013 4 4 Encounter Details Date Type Department Care Team (Latest Contact Info) Description 11/20/2012 13:00 EDT Office Visit [facility] Rehabilitation Therapy - [place] [address] [place], [place] 7[address]056 Naga Melendez MD [address] [place] [address] [phone] 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HCC-CMS) (Primary Dx) Discharge Disposition: [...] Physical Medicine and Rehabilitation Naga Melendez M.D. [address] [place] [address] Discharge Instructions after Botulinum Toxin Injections Diet [...] for any questions you may have at [phone] x 2. The office is open Sunday-Sunday from 8:00 am to 5:00pm. On weekends or evenings, if you have a serious problem, please call your Public Health Staff Nurse, Primary CarePhysician or go to your local Emergency Room. If for any reason a follow-up appointment was not provided or you need to reschedule an appointment, please call our office, the [facility] ([phone] or [phone]) or the [facility] ([phone] or [phone]) if that is where you are seen. 06/12ss documented in this encounter Discharge Disposition Disposition Code Departure Means Destination Auto Discharge documented in this encounter Progress Notes * Viri Sung RN - 11/20/2012 1342 EDT Botulinum toxin Lot #: [id number] Botulinum toxin expiration date: Nov 2014 Total [...] encounter Miscellaneous Notes * Scanned Note-Null - DIRECTOR ADVERTISING, SCAN 2 - 12/04/2012 1241 EDT documented in this encounter Plan of Treatment Upcoming Encounters Date Type Department Care Team (Late st Contact Info) Description 01/23/2024 16:[address] [facility] Neurology Clinic [address] [place] [address] Scott Esquivel MD [address] [place] [address]- [address] [place] [address] Scheduled Referrals Name Type Priority Associated Diagnoses Orde r Schedule AMB MEDICATION PRIOR AUTHORIZATION Outpatient Referral Routine 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HCC-CMS) Ordered: 11/20/2012 documented as of this encounter [...] daily. added in this encounter Care Teams Student Ministries Director Relationship Specialty Start Date End Date Lucy Elizabeth MD [address] [place] [phone] PCP - General 09/28/08 03/08/21 documented as of this encounter
--- OUTSIDE RECORDS SUMMARY | 2023-12-21 00:38 | XMS_ITS | Encounter Summary ---
Author Organization [facility] Address [address] [place] [address] Care Team Providers Care Sr. Vendor Management Associate Name Role Phone Lucy Elizabeth MD Primary Care Provider [phone] Encounter Details Date Type Department Care Team (Late st Contact Info) Description 08/11/2009 Abstract Used for ABSTRACTING Data [phone] Lucy Elizabeth MD [address] [place] [address] Quadriplegic infantile cerebral palsy (HCC-CMS) Social History Tobacco Use Types Packs/Day Years Used Date Smoking Tobacco: Never Assessed Sex and Gender Information Value Date Recorded Sex Assigned at Not on file Gender Identity Male 06/12/2019 8:16 EDT Sexual Orientation Not on file documented as of this encounter Plan of Treatment Upcoming Encounters Date Type Department Care Team (Late Contact Info) Description 01/23/2024 16:[address] [facility] Neurology Clinic [address] [place] [address] Scott Esquivel MD 130 [facility] [address] [place] [address] documented as of this encounter Visit Diagnoses Diagnosis 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HCC-CMS) Congenital quadriplegia documented in this encounter Care Teams Sr. Vendor Management Associate Relationship Specialty Start Date End Date Lucy Elizabeth MD [address] [place] [phone] PCP - General 09/28/08 03/08/21 documented as of this encounter
--- OUTSIDE RECORDS SUMMARY | 2023-12-21 00:38 | XMS_ITS | Encounter Summary ---
Author Organization [facility] Address [address] [place] [address] Care Team Providers Care Genetic Physician Name Role Phone Unavailable Primary Care Provider Unavailabl e Encounter Details Date Type Department Care Team (Late st Contact Info) Description 10/23/2001 9:45 EDT - 10/23/2001 11:59 EDT Hospital Encounter [facility] [address] [place] [address] Manuel Nunez MD 111 [facility], [address] [place] [address] Discharge Disposition: Auto Discharge Social History Tobacco [...] [facility] Clinic [address] [place] [address] Scott Esquivel MD 130 [facility]-[address] [place] [address] documented as of this encounter [...] 10/23/01 T 10/24/01 /chanda Manuel Nunez MD IMG US ORDERAB LES documented in this encounter Visit Diagnoses Not on filedocumented in this encounter
--- OUTSIDE RECORDS SUMMARY | 2023-12-21 00:38 | XMS_ITS | Encounter Summary ---
Author Organization [facility] Address [address] [place] [address] Care Team Providers Care Team Otr Truck Driver Name Role Phone Unavailable Primary Care Provider Unavailabl e Encounter Details Date Type Department Care Team (Late st Contact Info) Description 04/03/2008 12:38 EST Hospital Encounter [facility] [address] [place] [address] Naga Melendez MD [address] [place] [address] [address] [place] [address] Social History Tobacco Use Types [...] 01/23/2024 16:00 EST Office Visit [facility] Neurology Clinic [address] [place] [address] Scott Esquivel MD 130 [facility]-A [address] [place] [address] documented as of this encounter Visit Diagnoses Not on filedocumented in this encounter
--- OUTSIDE RECORDS SUMMARY | 2023-12-21 00:38 | XMS_ITS | Encounter Summary ---
Author Organization [facility] Address [address] [place] [address] Care Team Providers Care Mammography Tech Name Role Phone Lucy Elizabeth MD Primary Care Provider [phone] Reason for Visit * Reason Comments Botox Injection Encounter Details Date Type Department Care Team (Latest Contact Info) Description 10/21/2009 9:00 EDT Office Visit [facility] Rehabilitation Therapy [place] [phone] [place], [place] 8[address]446 Naga Melendez MD [address] [place] [address] Quadriplegic infantile cerebral palsy (HCC-CMS) (Primary Dx) [...] Medicine and Rehabilitation Naga Melendez M.D. [address] [place] [address] Discharge Instructions after Botulinum Toxin Injections Diet [...] for any questions you may have at [phone] x 2. The office is open Sunday-Sunday from 8:00 am to 5:00pm. On weekends or evenings, if you have a serious problem, please call your Local Coordinator, Primary CarePhysician or go to your local Emergency Room. If for any reason a follow-up appointment was not provided or you need to reschedule an appointment, please call our office, the [facility] ([phone] or [phone]) or the [facility] ([phone] or [phone]) if that is where you are seen. [address]ss documented in this encounter Progress Notes * Nereida Jvaier - 10/21/2009 1245 EDT Botulinum toxin Lot [...] Info) Description 01/23/2024 16:00 EST Office Visit [facility] Neurology Clinic [address] [place] [address] Scott Esquivel MD 130 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
--- OUTSIDE RECORDS SUMMARY | 2023-12-21 00:38 | XMS_ITS | Encounter Summary ---
Author Organization [facility] Address [address] [place] [address] Care Team Providers Care Device Sales Consultant Name Role Phone Lucy Elizabeth MD Primary Care Provider [phone] Reason for Visit * Reason Comments Follow-up botox Encounter Details Date Type Department Care Team (Latest Contact Info) Description 08/27/2009 13:00 EDT Office Visit [facility] Rehabilitation Therapy [address] [address] Naga Melendez MD [address] [place] [address] Quadriplegic infantile cerebral palsy (HCC-CMS) (Primary Dx) [...] of botulinum toxin injections over the last ixyn-pzd-b-half to his hamstrings. He has benefited from [...] - SHANNON Job ID: SM Doc ID: [id number] Ext Doc ID: [id number] cc: Lucy Elizabeth MD * Naga Melendez MD - 08/28/2009 1319 EDT .dic documented in this encounter Plan of Treatment Upcoming Encounters Date Type Department Care Team (Late st Contact Info) Description 01/23/2024 16:00 EST Office Visit [facility] Neurology Clinic [address] [place] [address] Scott Esquivel MD [address] [facility] [address]A [address] [place] [address] documented as of this encounter [...] Take 200 mcg by mouth daily 08/06/2019 [place]'s Wort 300 mg Cap Take 300 mg by mouth 3 times daily. 11/20/2012 levothyroxine (SYNTHROID) 125 mcg tablet Take 125 mcg by mouth daily. 06/18/2014 tolterodine (DETROL LA) 4 mg ER capsule Take 2 mg by mouth daily. 01/30/2011 added in this encounter Care Teams Device Sales Consultant Relationship Specialty Start Date End Date Lucy Elizabeth MD [address] [place] [phone] PCP - General 09/28/08 03/08/21 documented as of this encounter
--- OUTSIDE RECORDS SUMMARY | 2023-12-21 00:38 | XMS_ITS | Encounter Summary ---
Author Organization [facility] Address [address] [place] [address] Care Team Providers Care Hospitality Team Member Name Role Phone Lucy Elizabeth MD Primary Care Provider [phone] Reason for Visit * Reason Comments Botox Injection Encounter Details Date Type Department Care Team (Latest Contact Info) Description 10/25/2010 14:00 EDT Office Visit [facility] Rehabilitation Therapy [address] [place], [place] [phone] Naga Melendez MD [address] [place] [address] Quadriplegic infantile cerebral palsy (HCC-CMS) (Primary Dx) [...] Physical Medicine and Rehabilitation Naga Melendez M.D. [address] [place] [address] Discharge Instructions after Botulinum Toxin Injections Diet [...] for any questions you may have at [phone] x 2. The office is open Sunday-Sunday from 8:00 am to 5:00pm. On weekends or evenings, if you have a serious problem, please call your Administration Specialist, Primary CarePhysician or go to your local Emergency Room. If for any reason a follow-up appointment was not provided or you need to reschedule an appointment, please call our office, the [facility] ([phone] or [phone]) or the [facility] ([phone] or [phone]) if that is where you are seen. 06/12ss documented in this encounter Discharge Disposition Disposition Code Departure Means Destination Auto Discharge documented in this encounter Progress Notes * Naga Melendez MD - 10/25/2010 8621 EDT Botulinum Toxin Injection Procedure Note Pre-Procedure [...] mg by mouth 2 times daily. ??? Prrzbis-Lsnhhirfi-Asyu 333-133-5 mg Tab Take 1,000 mg by [...] Take 125 mcg by mouth daily. ??? [place]'s Wort 300 mg Cap Take 300 mg [...] * José Luis Rm RN - 10/25/2010 1439 EDT Botulinum toxin Lot #: [id number] Botulinum toxin expiration date: Feb 2013 Total Botulinum toxin units injected: 400 Total Botulinum toxin units wasted: 0 documented in this encounter Plan of Treatment Upcoming Encounters Date Type Department Care Team (Late st Contact Info) Description 01/23/2024 16:00 EST Office Visit [facility] Neurology Clinic [address] [place] [address] Scott Esquivel MD [address] [place] [address] [address] [place] [phone] documented as of this encounter Visit Diagnoses Diagnosis 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[facility]-CMS)- Primary Congenital quadriplegia documented in [...] 08/31/2011 added in this encounter Care Teams Hospitality Team Member Relationship Specialty Start Date End Date Lucy Elizabeth MD [address] [place] [phone] PCP - General 09/28/08 03/08/21 documented as of this encounter
--- OUTSIDE RECORDS SUMMARY | 2023-12-21 00:38 | XMS_ITS | Encounter Summary ---
Author Organization [facility] Address [address] [place] [address] Care Team Providers Care Ward Assistant Name Role Phone Lucy Elizabeth MD Primary Care Provider [phone] Encounter Details Date Type Department Care Team (Late st Contact Info) Description 01/02/2014 Results Only [facility] [place] [address] [place] [address] Lucy Elizabeth MD [address] [place] [phone] Social History Tobacco Use Types Packs/Day [...] Office Visit [facility] Neurology Clinic [address] [place], [place] [address] Scott Esquivel MD 130 [facility] [address] [address] [place] [address] documented as of this encounter Procedures Procedure Name Priority Date/Time Associated Diagnosis Comments CBC W/PLT & DIFF,POINT OF CARE - [facility] Routine 01/02/2014 12:17 EDT documented in this encounter Results * (ABNORMAL) CBC W/PLT & DIFF,POINT OF CARE - [facility] (01/02/2014 12:17 EDT) Gran # 4.90 1.40 - 6.50 x10e3/ul 01/27/2014 12:26 [facility] GRAN % - [facility] 57.2 42.20 - 75.20 % 01/27/2014 12:26 [facility] HEMATOCRIT - [facility] 46.8 35.00 - 60.00 % 01/27/2014 12:26 [facility] HEMOGLOBIN - [facility] 15.8 11.00 - 18.00 g/dl 01/27/2014 12:26 [facility] LYMPH # - [facility] 3.4 1.20 - 3.40 x10e3/ul 01/27/2014 12:26 [facility] LYMPH% - [facility] 39.5 20.50 - 51.10 % 01/27/2014 12:26 [facility] MEAN CORPUSCULAR HGB - [facility] 29.9 27.00 - 31.00 pg 01/27/2014 12:26 [facility] MEAN CORPUSCULAR HGB CONC - [facility] 33.8 33.00 - 37.00 g/dl 01/27/2014 12:26 [facility] MEAN CELL VOLUME - [facility] 88.7 80.00 - 99.90 fl 01/27/2014 12:26 [facility] MONO # - [facility] 0.3 0.10 - 0.60 x10e3/ul 01/27/2014 12:26 [facility] MONO% - [facility] 3.3 1.70 - 9.30 % 01/27/2014 12:26 [facility] MEAN PLATELET VOLUME - [facility] 9.7 7.80 - 11.00 fl 01/27/2014 12:26 [facility] PLATELET COUNT 173 150.00 - 450.00 x10e3/ul 01/27/2014 12:26 [facility] RED BLOOD COUNT - [facility] 5.27 4.00 - 6.00 x10e6/ul 01/27/2014 12:26 [facility] RED CELL DISTRI WIDTH - [facility] 15.3(H) 11.60 - 13.70 % 01/27/2014 12:26 [facility] WHITE BLOOD COUNT - [facility] 8.5 4.50 - 10.50 x10e3/ul 01/27/2014 12:26 [facility] 01/02/2014 12:1 7 EDT 01/02/2014 12:17 EDT Lucy Elizabeth MD CHEMISTRY & BLOOD GA S ORDERABLES [facility] documented in this encounter Visit Diagnoses Not on filedocumented in this encounter Care Teams Ward Assistant Relationship Specialty Start Date End Date Lucy Elizabeth MD [address] [place] [phone] PCP - General 09/28/08 03/08/21 documented as of this encounter
--- OUTSIDE RECORDS SUMMARY | 2023-12-21 00:38 | XMS_ITS | Encounter Summary ---
Author Organization [facility] Address [address] [place] [address] Care Team Providers Care Shuttle Buggy Operator Name Role Phone Lucy Eliazbeth MD Primary Care Provider [phone] Reason for Visit * Reason Onset Date Comments Physical Therapy 07/19/2012 Encounter Details Date Type Department Care Team (Late st Contact Info) Description 07/19/2012 Orders Only [facility] Rehabilitation Therapy - [address] [address] Viri Sung RN [address] [place] [address] Social History Tobacco Use Types Packs/Day Years Used Date Smoking Tobacco: Never Assessed Sex and Gender Information Value Date Recorded Sex Assigned at Not on file Gender Identity Male 06/12/2019 8:16 EDT Sexual Orientation Not on file documented as of this encounter Progress Notes * Viri Sung RN - 07/19/2012 9842 EDT Script for lymphedema evaluation and treatment faxed to [facility] Lisa Mckeon. Janes's parents are aware. * Viri Sung RN - 07/19/[address] Melendez wrote script for patient for lymphedema therapy to be done at [facility]. Janes's parents felt lymphedema frequent treatments at [facility] was too far from home. [facility] is closer to home. Dr Al pino, will write script documented in this encounter Plan of Treatment Upcoming Encounters Date Type Department Care Team (Late st Contact Info) Description 01/23/2024 16:00 EST Office Visit [facility] Neurology Clinic [address] [place] [address] Scott Esquivel MD 130 [facility] [address] [place] [address] documented as of this encounter Visit Diagnoses Not on filedocumented in this encounter Care Teams Shuttle Buggy Operator Relationship Specialty Start Date End Date Lucy Elizabeth MD [address] [place] [phone] PCP - General 09/28/08 03/08/21 documented as of this encounter
--- OUTSIDE RECORDS SUMMARY | 2023-12-21 00:38 | XMS_ITS | Encounter Summary ---
Author Organization [facility] Address [address] [place] [address] Care Team Providers Care Petrol Tanker Driver Name Role Phone Unavailable Primary Care Provider Unavailabl e Encounter Details Date Type Department Care Team (Late st Contact Info) Description 05/15/2008 12:31 EDT Hospital Encounter [facility] [address] [place] [address] Naga Melendez MD [address] [place] [address] [address] [place] [address] Social History Tobacco Use Types [...] Info) Description 01/23/2024 16:00 EST Office Visit [facility] Neurology Clinic [address] [place] [address] Scott Esquivel MD 130 [facility] [address] [address] [place] [address] documented as of this encounter Visit Diagnoses Not on filedocumented in this encounter
--- OUTSIDE RECORDS SUMMARY | 2023-12-21 00:38 | XMS_ITS | Encounter Summary ---
Author Organization [facility] Address [address] [place] [address] Care Team Providers Care Fine Arts Packer Name Role Phone Lucy Elizabeth MD Primary Care Provider [phone] Reason for Referral * Consult (Routine) - Denied Specialty Diagnoses / Procedures [facility] Referred To Contact Physical Medicine and Rehabilitation Diagnoses 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[facility]-CMS) Naga Melendez MD [address] [place] [address] [address] [address] [address] Phone: [phone] Referral ID Status Reason Start Date Expiration Date V isits Requested Visits Authorized [id number] Denied Specialty Services Required 01/31/2011 1 0 Question Answer Medication to be Prior Authorized: For next visit. Comments Botox 400 units Reason for Visit * Reason Comments Botox Injection Encounter Details Date Type Department Care Team (Latest Contact Info) Description 01/30/2011 13:00 EST Office Visit [facility] Rehabilitation Therapy - [address] [phone] Naga Melendez MD [address] [place] [address] Quadriplegic infantile cerebral palsy (Primary Dx) [...] Medicine and Rehabilitation Naga Melendez M.D. [address] [place] [address] Discharge Instructions after Botulinum Toxin Injections Diet [...] for any questions you may have at [phone] x 2. The office is open Sunday-Sunday from 8:00 am to 5:00pm. On weekends or evenings, if you have a serious problem, please call your Blow Pit Helper, Primary CarePhysician or go to your local Emergency Room. If for any reason a follow-up appointment was not provided or you need to reschedule an appointment, please call our office, the [facility] ([phone] or [phone]) or the [facility] ([phone] or [phone]) if that is where you are seen. [...] * José Luis Rm RN - 01/30/2011 2975 EST Botulinum toxin Lot #: [id number] Botulinum toxin expiration date: June 2013 Total Botulinum toxin units injected: 400 Total Botulinum toxin units wasted: 0 documented in this encounter Plan of Treatment Upcoming Encounters Date Type Department Care Team (Late st Contact Info) Description 01/23/2024 16:00 EST Office Visit [facility] Neurology Clinic [address] [place] [address] Scott Esquivel MD 130 [facility] [address] [place] [address] Scheduled Referrals Name Type Priority Associated Diagnoses [...] 08/31/2011 added in this encounter Care Teams Fine Arts Packer Relationship Specialty Start Date End Date Lucy Elizabeth MD [address] [place] [phone] PCP - General 09/28/08 03/08/21 documented as of this encounter
--- OUTSIDE RECORDS SUMMARY | 2023-12-21 00:38 | XMS_ITS | Encounter Summary ---
Author Organization [facility] Address [address] [place] [address] Care Team Providers Care Upward Bound Director Name Role Phone Lucy Elizabeth MD Primary Care Provider [phone] Reason for Referral * Consult (Routine) - Closed Specialty Diagnoses / Procedures Referred By Rubina t Referred To Contact Physical Medicine and Rehabilitation / Physical Medicine and Rehab Diagnoses 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HCC-CMS) Low back pain Fusion of spine Naga Melendez MD [address] [facility] [address] [place] [address] [facility] Rehab Medicine [address] [place] [address] Referral ID Status Reason Start Date Expiration Date V isits Requested Visits Authorized [id number] Closed Specialty Services Required 12/22/2010 04/03/2012 1 1 Question Answer Medication to be Prior Authorized: Botox for next visit Comments Botox 400 units * Consult (Routine) - Closed Specialty Diagnoses / Procedures Referred By Conteusebia t Referred To Contact Diagnoses 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HCC-CMS) Low back pain Naga Melendez MD [address] [place] [address] [place], [place] [address] Referral ID Status Reason Start Date Expiration Date V isits Requested Visits Authorized [id number] Closed Specialty Services Required 12/22/2010 1 1 Question Answer Physical therapy is needed for: Evaluation Comments Low back pain flare, SI joint and paraspinals on right side. Home Health Prfc-Zr-Wpzx Encounter: I certify that this patient is under my care and that I, or a Medicare authorized non-physician provider (RADIO TELEVISION ANNOUNCER or PA) working with me, had a njsm-cf-qnsa encounter with this patient on 12/22/2010 that was in whole or in part related to the reason the patient needs home health care. The findings of this encounter indicate that the patient requires assisted or therapist services for the reasons listed [...] Info) Description 12/22/2010 14:00 EDT Office Visit [facility] Rehabilitation Therapy - [address] [address] Naga Melendez MD [address] [place] [address] 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HCC-CMS); Low back pain; Fusion of spine Social History Tobacco Use Types Packs/Day Years Used Date Smoking Tobacco: Never Assessed Sex and Gender Information Value Date Recorded Sex Assigned at Not on file Gender Identity Male 06/12/2019 8:16 EDT Sexual Orientation Not on file documented as of this encounter Progress Notes * Naga Melendez MD - 12/22/2010 3289 EDT REASON FOR FOLLOWUP: History of spastic quadriplegic CP, here for reevaluation of response to Botoxinjections into the lower extremities as well as recent flare of low back pain on the right. Jnaes is a 40-year-old gentleman who was seen [...] Office Visit [facility] Neurology Clinic [address] [place] [address] Scott Esquivel MD 130 [facility] [address] [place] [address] Scheduled Referrals Name Type Priority [...] 16:41 EDT Narrative 12/22/2010 16:41 EDT History/Comments: ??724.5-FXYIDLY-JZO-9-CM 343.2-CONGENITAL JSFFGWBWHTOV-ODC-5-CM ??2 weeks of new right low back [...] joint space narrowing. Procedure Note 12/22/2010 History/Comments: 724.9-JXAQFKP-VNO-9-CM 343.2-CONGENITAL FNDJXUKABNLX-OTL-1-CM 2 weeks of new right low back [...] 08/31/2011 added in this encounter Care Teams Upward Bound Director Relationship Specialty Start Date End Date Lucy Elizabeth MD [address] [place] [phone] PCP - General 09/28/08 03/08/21 documented as of this encounter
--- OUTSIDE RECORDS SUMMARY | 2023-12-21 00:38 | XMS_ITS | Encounter Summary ---
Author Organization [facility] Address [address] [place] [address] Care Team Providers Care Manager China Name Role Phone Unavailable Primary Care Provider Unavailabl e Encounter Details Date Type Department Care Team (Latest Contact Info) Description 05/27/2008 15:23 EDT - 06/02/2008 11:59 EDT Hospital Encounter [facility] - [address] [address] Lucy Elizabeth MD [address] [place] [phone] Discharge Disposition: Auto Discharge Social History [...] Info) Description 01/23/2024 16:00 EST Office Visit [facility] Neurology Clinic [address] [place] [address] Scott Esquivel MD 130 [facility] [address] [place] [address] documented as of this encounter Visit Diagnoses Not on filedocumented in this encounter
--- OUTSIDE RECORDS SUMMARY | 2023-12-21 00:38 | XMS_ITS | Encounter Summary ---
Author Organization [facility] Address [address] [place] [address] Care Team Providers Care Steam Pipe Fitter Name Role Phone Unavailable Primary Care Provider Unavailabl e Encounter Details Date Type Department Care Team (Late st Contact Info) Description 05/15/2008 Before PRISM Converted Visit (Maple) [facility] conversion [address] [place] [address] Naga Melendez MD [address] [place] [address] Social History Tobacco Use Types Packs/Day Years [...] and updated. He continues to live through [facility] housing. He sounds like he is pretty [...] - Naga Melendez MD - Job ID: [id number] Doc ID: [id number] cc: Lucy Elizabeth MD * Naga Melendez [...] his [place]. He responded nicely to [...] Melendez MD - Naga Melendez MD - [facility] Job ID: [id number] Doc ID: [id number] cc: Lucy Elizabeth MD documented in this encounter Plan of Treatment Upcoming Encounters Date Type Department Care Team (Late st Contact Info) Description 01/23/2024 16:00 EST Office Visit [facility] Neurology Clinic [address] [place] [address] Scott Esquivel MD [address] [place] [address] [address] [place] [phone] documented as of this encounter Visit Diagnoses Not on filedocumented in this encounter
--- OUTSIDE RECORDS SUMMARY | 2023-12-21 00:38 | XMS_ITS | Encounter Summary ---
Author Organization [facility] Address [address] [place] [address] Care Team Providers Care Rotary Peel Oven Tender Name Role Phone Lucy Elizabeth MD Primary Care Provider Reason for Visit * Reason Onset Date Comments Other 12/30/2010 Encounter Details Date Type Department Care Team (Late st Contact Info) Description 12/30/2010 Telephone [facility] Rehabilitation Therapy - [address] [address] Markus Rm, RN Other Social History Tobacco Use Types Packs/Day Years Used Date Smoking Tobacco: Never Assessed Sex and Gender Information Value Date Recorded Sex Assigned at Not on file Gender Identity Male 06/12/2019 8:16 EDT Sexual Orientation Not on file documented as of this encounter Miscellaneous Notes * Telephone Encounter - José Luis Rm RN - 12/30/2010 2540 EDT Janes Ramírez's mother, called to request that referral from 12/22/10 appointment be faxed to [facility]. I let Desiree know that the referral was faxed on 12/22/10 but I would call to confirm that [facility] had received referral and re-fax if they had not received. TC to [facility], spoke with Heavenly who confirmed that they had received referral for Janes on 12/22/10 and that she had just spoken with Desiree and confirmed same. documented in this encounter Plan of Treatment Upcoming Encounters Date Type Department Care Team (Late st Contact Info) Description 01/23/2024 16:00 EST Office Visit [facility] Neurology Clinic [address] [place] [address] Scott Esquivel MD 130 [facility] [address]OB-A [address] [place] [address] documented as of this encounter Visit Diagnoses Not on filedocumented in this encounter Care Teams Rotary Peel Oven Tender Relationship Specialty Start Date End Date Lucy Elizabeth MD [address] [place] [phone] PCP - General 09/28/08 03/08/21 documented as of this encounter
--- OUTSIDE RECORDS SUMMARY | 2023-12-21 00:38 | XMS_ITS | Encounter Summary ---
Author Organization [facility] Address [address] [place] [address] Care Team Providers Care Code Machine Operator Name Role Phone Unavailable Primary Care Provider Unavailabl e Encounter Details Date Type Department Care Team (Late st Contact Info) Description 04/03/2008 Before PRISM Converted Visit (Maple) [facility] - [place] conversion [address] [place] [address] Naga Melendez MD [address] [place] [address] Social History Tobacco Use Types Packs/Day Years Used Date Smoking Tobacco: Never Assessed Sex and Gender Information Value Date Recorded Sex Assigned at Not on file Gender Identity Male 06/12/2019 8:16 EDT Sexual Orientation Not on file documented as of this encounter Progress Notes * Naga Melendez MD - 09/26/2008 4360 EDT PHYSICAL MEDICINE / REHABILITATION PROGRESS/FOLLOWUP NOTE [...] Melendez MD - Naga Melendez MD - [facility] Job ID: [id number] Doc ID: [id number] cc: MD Millicent Cooper PA documented in this encounter Plan of Treatment Upcoming Encounters Date Type Department Care Team (Late st Contact Info) Description 01/23/2024 16:00 EST Office Visit [facility] Neurology Clinic [address] [place] [address] Scott Esquivel MD 130 [facility]- [address] [place] [address] documented as of this encounter Visit Diagnoses Not on filedocumented in this encounter
--- OUTSIDE RECORDS SUMMARY | 2023-12-21 00:38 | XMS_ITS | Encounter Summary ---
Author Organization [facility] Address [address] [place] [address] Care Team Providers Care Boom Tender Name Role Phone Lucy Elizabeth MD Primary Care Provider [phone] Reason for Visit * Reason Comments Botox Injection * Consult (Routine/Next Available) - Closed Specialty Diagnoses / Procedures Referred By Rubina perkins Referred To Contact Physical Medicine and Rehabilitation / Physical Medicine and Rehab Diagnoses 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HCC-CMS) Naga Melendez MD [address] [place] [address] Naga Melendez MD [address] [place] [address] Referral ID Status Reason Start Date Expiration Date V isits Requested Visits Authorized [id number] Closed Specialty Services Required 11/20/2012 11/19/2013 4 4 Encounter Details Date Type Department Care Team (Latest Contact Info) Description 03/20/2013 13:00 EST Office Visit [facility] Rehabilitation Therapy - [address] [phone] Naga Melendez MD [address] [place] [address] [phone] 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HCC-CMS) (Primary Dx) Discharge Disposition: [...] Physical Medicine and Rehabilitation Naga Melendez M.D. [address] [place] [address] Discharge Instructions after Botulinum Toxin Injections Diet [...] for any questions you may have at [phone] x 2. The office is open Sunday-Sunday from 8:00 am to 5:00pm. On weekends or evenings, if you have a serious problem, please call your Hairspring Setter, Primary CarePhysician or go to your local Emergency Room. If for any reason a follow-up appointment was not provided or you need to reschedule an appointment, please call our office, the [facility] ([phone] or [phone]) or the [facility] ([phone] or [phone]) if that is where you are seen. 06/12ss documented in this encounter Discharge Disposition Disposition Code Departure Means Destination Auto Discharge documented in this encounter Progress Notes * Naga Melendez MD - 03/20/2013 4668 EST Botulinum Toxin Injection Procedure Note Pre-Procedure [...] * José Luis Rm RN - 03/20/2013 5778 EST Botulinum toxin Lot #: [id number] Botulinum toxin expiration date: Botulinum toxin [facility] # 2961-9415-50 Total Botulinum toxin units injected: 400 Total Botulinum toxin units wasted: 0 documented in this encounter Plan of Treatment Upcoming Encounters Date Type Department Care Team (Late st Contact Info) Description 01/23/2024 16:00 EST Office Visit [facility]rology Clinic [address] [place] [address] Scott Esquivel MD 130 [facility] [address] [place] [address] documented as of this encounter Visit Diagnoses Diagnosis 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HCC-CMS)- Primary Congenital quadriplegia documented in this encounter Care Teams Boom Tender Relationship Specialty Start Date End Date Lucy Elizabeth MD [address] [place] [phone] PCP - General 09/28/08 03/08/21 documented as of this encounter
--- OUTSIDE RECORDS SUMMARY | 2023-12-21 00:38 | XMS_ITS | Encounter Summary ---
Author Organization [facility] Address [address] [place] [address] Care Team Providers Care Corporate Pilot Name Role Phone Lucy Elizabeth MD Primary Care Provider [phone] Reason for Referral * Consult (Routine/Next Available) - Closed Specialty Diagnoses / Procedures Referred By Conteusebia t Referred To Contact Physical Medicine and Rehabilitation / Physical Medicine and Rehab Diagnoses 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[facility]-CMS) Naga Melendez MD [address] [facility] [address] [place] [address] Naga Melendez MD [address] [place] [address] [place] [address] Referral ID Status Reason Start Date Expiration Date V isits Requested Visits Authorized [id number] Closed Specialty Services Required 03/18/2013 1 0 Question Answer Medication to be Prior Authorized: Botox for next visit tomorrow Comments Botox 400 units Encounter Details Date Type Department Care Team (Late st Contact Info) Description 03/18/2013 Orders Only [facility] Rehabilitation Therapy - [address] 957326 Naga Melendez MD [address] [place] [address] [place] [phone] 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HCC-CMS) (Primary Dx) Social History [...] [facility] Clinic [address] [place] [address] Scott Esquivel MD 130 [facility] [address] [place] [phone] Scheduled Referrals Name Type Priority Associated Diagnoses Orde r Schedule AMB MEDICATION PRIOR AUTHORIZATION Outpatient Referral Routine 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HCC-CMS) Ordered: 03/18/2013 documented as of this encounter Visit Diagnoses Diagnosis 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HCC-CMS)- Primary Congenital quadriplegia documented in this encounter Care Teams Corporate Pilot Relationship Specialty Start Date End Date Lucy Elizabeth MD [address] [place] [phone] PCP - General 09/28/08 03/08/21 documented as of this encounter
--- OUTSIDE RECORDS SUMMARY | 2023-12-21 00:38 | XMS_ITS | Encounter Summary ---
Author Organization [facility] Address [address] [place] [address] Care Team Providers Care Marble Helper Name Role Phone Lucy Elizabeth MD Primary Care Provider [phone] Reason for Referral * Consult (Routine) - Closed Specialty Diagnoses / Procedures [facility] Referred To Contact Physical Medicine and Rehabilitation Diagnoses Congenital quadriplegia (HCC-CMS) Naga Melendez MD [address] [place] [address] [address] Phone: [phone] Referral ID Status Reason Start Date Expiration Date V isits Requested Visits Authorized [id number] Closed Specialty Services Required 10/14/2009 01/14/2010 1 1 Question Answer Medication to be Prior Authorized: Botox for October visit. Comments Botox 400 units Encounter Details Date Type Department Care Team (Late st Contact Info) Description 10/01/2009 Orders Only [facility] Rehabilitation Therapy - [address] [address] Naga Melendez MD [address] [place] [phone] Quadriplegic infantile cerebral palsy (HCC-CMS) (Primary Dx) [...] Office Visit [facility] Neurology Clinic [address] [place] [address] Scott Esquivel MD 130 [facility] [address] [place] [address] Scheduled Referrals Name Type Priority Associated Diagnoses Order Schedule AMB MEDICATION PRIOR AUTHORIZATION Outpatient Referral Routine Quadriplegic infantile cerebral palsy (HCC-CMS) Ordered: 10/01/2009 documented as of this encounter Visit Diagnoses Diagnosis Congenital quadriplegia (HCC-CMS)- Primary Congenital quadriplegia documented in this encounter Care Teams Marble Helper Relationship Specialty Start Date End Date Lucy Elizabeth MD [address] [place] [phone] PCP - General 09/28/08 03/08/21 documented as of this encounter
--- OUTSIDE RECORDS SUMMARY | 2023-12-21 00:38 | XMS_ITS | Encounter Summary ---
Author Organization [facility] Address [address] [place] [address] Care Team Providers Care Sugar Cane Planter Name Role Phone Lucy Elizabeth MD Primary Care Provider [phone] Reason for Visit * Reason Comments Botox Injection Encounter Details Date Type Department Care Team (Latest Contact Info) Description 04/21/2010 13:30 EST Office Visit [facility] Rehabilitation Therapy - [place] [address] [place], [place] [address] Naga Melendez MD [address] [place] [address] Quadriplegic infantile cerebral palsy (HCC-CMS) (Primary Dx) [...] Physical Medicine and Rehabilitation Naga Melendez M.D. [address] [place] [address] Discharge Instructions after Botulinum Toxin Injections Diet [...] for any questions you may have at [phone] x 2. The office is open Sunday-Sunday from 8:00 am to 5:00pm. On weekends or evenings, if you have a serious problem, please call your Disposal Operator, Primary CarePhysician or go to your local Emergency Room. If for any reason a follow-up appointment was not provided or you need to reschedule an appointment, please call our office, the [facility] ([phone] or [phone]) or the [facility] ([phone] or [phone]) if that is where you are seen. [...] Office Visit [facility] [address] [place] [address] Scott Esquivel MD 130 [facility] [address] [place] [address] documented as of this encounter Visit Diagnoses Diagnosis Congenital quadriplegia ([facility])- Primary Congenital quadriplegia documented in this encounter Care Teams Sugar Cane Planter Relationship Specialty Start Date End Date Lucy Elizabeth MD [address] [place] [phone] PCP - General 09/28/08 03/08/21 documented as of this encounter
--- OUTSIDE RECORDS SUMMARY | 2023-12-21 00:38 | XMS_ITS | Encounter Summary ---
Author Organization [facility] Address [address] [place] [address] Care Team Providers Care Director Supplier Quality Name Role Phone Lucy Elizabeth MD Primary Care Provider [phone] Reason for Referral * Consult (Routine/Next Available) - Specialty Report Received Specialty Diagnoses / Procedures Referred By Rubina t Referred To Contact Physical Medicine and Rehab Diagnoses Congenital quadriplegia ([facility]) Naga Melendez MD [address] [place] [address] Naga Melendez MD [address] [place] [address] Referral ID Status Reason Start Date Expiration Date Visits Requested Visits Authorized [id number] Specialty Report Received Specialty Services Required 4 06/19/2014 4 4 Question Answer Medication to be Prior Authorized: Botox for next visit. 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[facility]) Naga Melendez MD [address] [place] [address] Naga Melendez MD [address] [address] Referral ID Status Reason Start Date Expiration Date Visits Requested Visits Authorized [id number] Specialty Report Received Specialty Services Required 4 06/19/2014 4 4 Encounter Details Date Type Department Care Team (Latest Contact Info) Description 12/19/2013 9:30 EDT Office Visit [facility] Rehabilitation Therapy - [facility] [address] [place], [place] [address] Naga Melendez MD [address] [place] [phone] Congenital quadriplegia (HCC-CMS) (Primary Dx) Social History [...] Physical Medicine and Rehabilitation Naga Melendez M.D. [address] [place] [address] Discharge Instructions after Botulinum Toxin Injections Diet [...] for any questions you may have at [phone] x 2. The office is open Sunday-Sunday from 8:00 am to 5:00pm. On weekends or evenings, if you have a serious problem, please call your Business Control Specialist, Primary CarePhysician or go to your local Emergency Room. If for any reason a follow-up appointment was not provided or you need to reschedule an appointment, please call our office, the [facility] ([phone] or [phone]) or the [facility] ([phone] or [phone]) if that is where you are seen. 06/12ss documented in this encounter Progress Notes * Viri Sung RN - 12/19/2013 1019 EDT Botulinum toxin Lot #: [id number] Botulinum toxin expiration date: 07/2016 Botulinum toxin [facility] # 9276-3617-52 Total Botulinum toxin units injected: 400 Total [...] uses in his apartment. 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 He has his own apartment [...] Description 01/23/2024 16:00 EST Office Visit [facility] Neurology Clinic [address] [place] [address] Scott Esquivel MD 130 [facility] [address] [place] [phone] Scheduled Referrals Name Type Priority Associated Diagnoses Orde r Schedule AMB MEDICATION PRIOR AUTHORIZATION Outpatient Referral Routine Congenital quadriplegia ([facility]-CMS) Ordered: 12/19/2013 documented as of this encounter Visit Diagnoses Diagnosis Congenital quadriplegia (HCC-CMS)- Primary Congenital quadriplegia documented in this encounter Care Teams Director Supplier Quality Relationship Specialty Start Date End Date Lucy Elizabeth MD [address] [place] [phone] PCP - General 09/28/08 03/08/21 documented as of this encounter
--- OUTSIDE RECORDS SUMMARY | 2023-12-21 00:38 | XMS_ITS | Encounter Summary ---
Author Organization [facility] Address [address] [place] [address] Care Team Providers Care Certified Prosthetist Vice President Name Role Phone Unavailable Primary Care Provider Unavailabl e Encounter Details Date Type Department Care Team (Late st Contact Info) Description 02/04/2008 13:41 EST Hospital Encounter [facility] - Other [address] [place] [address] Lucy Elizabeth MD [address] [place] [phone] Social History Tobacco Use Types Packs/Day [...] Info) Description 01/23/2024 16:00 EST Office Visit [facility] [address] [place] [address] Scott Esquivel MD 130 [facility] [address] [place] [address] documented as of this encounter Visit Diagnoses Not on filedocumented in this encounter
--- OUTSIDE RECORDS SUMMARY | 2023-12-21 00:38 | XMS_ITS | Encounter Summary ---
Author Organization [facility] Address [address] [place] [address] Care Team Providers Care Turkey Cleaner Name Role Phone Lucy Elizabeth MD Primary Care Provider [phone] Reason for Referral * Consult (Routine/Next Available) - Closed Specialty Diagnoses / Procedures Referred By Rubina perkins Referred To Contact Diagnoses Congenital quadriplegia (HCC-CMS) Lymphedema of lower extremity Naga Melendez MD [address] [address] Referral ID Status Reason Start Date Expiration Date V isits Requested Visits Authorized [id number] Closed Specialty Services Required 07/19/2012 1 1 Question Answer Reason for Request: Progressive lymphedema of the legs. Assess for MLD and garments. Encounter Details Date Type Department Care Team (Late st Contact Info) Description 07/19/2012 Orders Only [facility] Rehabilitation Therapy - [address] [phone] Naga Melendez MD [address] [place] [address] Congenital quadriplegia (HCC-CMS) (Primary Dx); Lymphedema [...] Info) Description 01/23/2024 16:00 EST Office Visit [facility] Neurology Clinic [address] [place], [place] [phone] Scott Esquivel MD 130 [facility] [address] [place] [address] Scheduled Referrals Name Type Priority Associated Diagnoses Orde r Schedule AMB CONSULT PT LYMPHEDEMA EVAL AND TREAT Outpatient Referral Routine Congenital quadriplegia (HCC-CMS) Lymphedema of lower extremity Ordered: 07/19/2012 documented as of this encounter Visit Diagnoses Diagnosis Congenital quadriplegia (HCC-CMS)- Primary Congenital quadriplegia Lymphedema of lower extremity Other lymphedema documented in this encounter Care Teams Turkey Cleaner Relationship Specialty Start Date End Date Lucy Elizabeth MD [address] [place] [phone] PCP - General 09/28/08 03/08/21 documented as of this encounter
--- OUTSIDE RECORDS SUMMARY | 2023-12-21 00:38 | XMS_ITS | Encounter Summary ---
Author Organization [facility] Address [address] [place] [address] Care Team Providers Care Glaucoma Specialist Name Role Phone Lucy Elizabeth MD Primary Care Provider [phone] Reason for Referral * Consult (Routine/Next Available) - Closed Specialty Diagnoses / Procedures Referred By Rubina perkins Referred To Contact Physical Medicine and Rehabilitation / Physical Medicine and Rehab Diagnoses Congenital quadriplegia ([facility] Naga Melendez MD 373 [facility] [address] [place] [address] Naga Melendez MD 373 [facility] [address] [place] [address] Referral ID Status Reason Start Date Expiration Date V isits Requested Visits Authorized [id number] Closed Specialty Services Required 05/02/2011 03/04/2012 1 1 Question Answer Medication to be Prior Authorized: Botox for 3 month follow up. Comments Botox 400 units Reason for Visit * Reason Comments Botox Injection Encounter Details Date Type Department Care Team (Latest Contact Info) Description 05/02/2011 13:30 EST Office Visit [facility] Rehabilitation Therapy - [address] [address] Naga Melendez MD 373 [facility] [address] [place] [phone] Quadriplegic infantile cerebral palsy (Primary Dx) Social [...] Physical Medicine and Rehabilitation Naga Melendez M.D. [address] [place] [address] Discharge Instructions after Botulinum Toxin Injections Diet [...] for any questions you may have at [phone] x 2. The office is open Sunday-Sunday from 8:00 am to 5:00pm. On weekends or evenings, if you have a serious problem, please call your Train Brake Operator, Primary CarePhysician or go to your local Emergency Room. If for any reason a follow-up appointment was not provided or you need to reschedule an appointment, please call our office, the [facility] Clinic ([phone] or [phone]) or the [facility] ([phone] or [phone]) if that is where you are seen. [address] documented in this encounter Progress Notes * Naga Melendez MD - 05/02/2011 5491 EST Botulinum Toxin Injection Procedure Note Pre-Procedure [...] 05/02/2011 1329 EST Botulinum toxin Lot #: [id number] Botulinum toxin expiration date: JUN 2013 Botulinum toxin [facility] # [id number] Total Botulinum toxin units injected: 400 Total Botulinum toxin units wasted: 0 documented in this encounter Plan of Treatment Upcoming Encounters Date Type Department Care Team (Late st Contact Info) Description 01/23/2024 16:00 EST Office Visit [facility] Neurology Clinic [address] [place] [address] Scott Esquivel MD 130 [facility] [address] [place] [phone] Scheduled Referrals Name Type Priority Associated Diagnoses [...] 08/31/2011 added in this encounter Care Teams Glaucoma Specialist Relationship Specialty Start Date End Date Lucy Elizabeth MD [address] [place] [phone] PCP - General 09/28/08 03/08/21 documented as of this encounter
--- OUTSIDE RECORDS SUMMARY | 2023-12-21 00:38 | XMS_ITS | Encounter Summary ---
Author Organization [facility] Address [address] [place] [address] Care Team Providers Care Fisher Spear Name Role Phone Lucy Elizabeth MD Primary Care Provider [phone] Encounter Details Date Type Department Care Team (Late st Contact Info) Description 01/02/2014 Results Only [facility] - Main [place] [address] [place] [address] Lucy Elizabeth MD [address] [place] [phone] Social History Tobacco Use Types Packs/Day [...] Office Visit [facility] Neurology Clinic [address] [place], [place] [address] Scott Esquivel MD 130 [facility] [address] [place] [address] documented as of this encounter Procedures Procedure Name Priority Date/Time Associated Diagnosis Comments COMPREHENSIVE METABOLIC POC - [facility] Routine 01/02/2014 12:17 EDT documented in this encounter Results * (ABNORMAL) COMPREHENSIVE METABOLIC POC - CV (01/02/2014 12:17 EDT) Albumin % 4.5 3.50 - 5.00 g/dl 01/27/2014 12:26 [facility] ALKALINE PHOSPHATASE - [facility] 91 38.00 - 126.00 u/l 01/27/2014 12:26 [facility] BILIRUBIN TOTAL 0.4 0.20 - 1.30 mg/dl 01/27/2014 12:26 [facility] BUN - [facility] 16 7.00 - 20.00 mg/dl 01/27/2014 12:26 [facility] CALCIUM - [facility] 10.3 8.50 - 10.50 mg/dl 01/27/2014 12:26 [facility] Chloride 101 98.00 - 107.00 mmol/l 01/27/2014 12:26 [facility] CO2 Total 25 22.00 - 30.00 mmol/l 01/27/2014 12:26 [facility] CREATININE 0.8 0.70 - 1.50 mg/dl 01/27/2014 12:26 [facility] GLUCOSE - [facility] 104(H) 70.00 - 100.00 mg/dl 01/27/2014 12:26 [facility] Potassium 4.6 3.50 - 5.10 mmol/l 01/27/2014 12:26 [facility] Sodium 145 137.00 - 145.00 mmol/l 01/27/2014 12:26 [facility] TOTAL PROTEIN - [facility] 7.4 6.30 - 8.20 g/dl 01/27/2014 12:26 [facility] SGOT/AST - [facility] 39 15.00 - 46.00 u/l 01/27/2014 12:26 [facility] SGPT/ALT - [facility] 33 13.00 - 69.00 u/l 01/27/2014 12:26 [facility] 01/02/2014 12:1 7 EDT 01/02/2014 12:17 EDT Lucy Elizabeth MD CHEMISTRY & BLOOD GA S ORDERABLES [facility] documented in this encounter Visit Diagnoses Not on filedocumented in this encounter Care Teams Fisher Spear Relationship Specialty Start Date End Date Lucy Elizabeth MD [address] [place] [phone] PCP - General 09/28/08 03/08/21 documented as of this encounter
--- OUTSIDE RECORDS SUMMARY | 2023-12-21 00:38 | XMS_ITS | Encounter Summary ---
Author Organization [facility] Address [address] [place] [address] Care Team Providers Care Transitions Rn Care Coordinator Name Role Phone Lucy Elizabeth MD Primary Care Provider [phone] Reason for Visit * Reason Comments Botox Injection * Consult (Routine/Next Available) - Closed Specialty Diagnoses / Procedures Referred By Rubina perkins Referred To Contact Physical Medicine and Rehabilitation / Physical Medicine and Rehab Diagnoses Congenital quadriplegia (HCC-CMS) Naga Melendez MD [address] [place] [phone] Naga Melendez MD [address] [place] [phone] Referral ID Status Reason Start Date Expiration Date V isits Requested Visits Authorized [id number] Closed Specialty Services Required 11/20/2012 11/19/2013 4 4 Encounter Details Date Type Department Care Team (Latest Contact Info) Description 09/12/2013 14:30 EDT Office Visit [facility] Rehabilitation Therapy - [address] [phone] Naga Melendez MD [address] [place] [phone] Congenital quadriplegia (HCC-CMS) (Primary Dx) Social History [...] Physical Medicine and Rehabilitation Naga Melendez M.D. [address] [place] [address] Discharge Instructions after Botulinum Toxin Injections Diet [...] for any questions you may have at [phone] x 2. The office is open Sunday-Sunday from 8:00 am to 5:00pm. On weekends or evenings, if you have a serious problem, please call your Instructional Aide, Primary CarePhysician or go to your local Emergency Room. If for any reason a follow-up appointment was not provided or you need to reschedule an appointment, please call our office, the [facility] ([phone] or [phone]) or the [facility] ([phone] or [phone]) if that is where you are seen. 06/12ss documented in this encounter Progress Notes * Naga Melendez MD - 09/12/2013 2937 EDT Botulinum Toxin Injection Procedure Note Pre-Procedure [...] 12/16/2013 * Viri Sung RN - 09/12/2013 7852 EDT Botulinum toxin Lot #: [id number] Botulinum toxin expiration date: Mar 2016 Botulinum toxin [facility] # [id number] Total Botulinum toxin units injected: 400 Total Botulinum toxin units wasted: 0 documented in this encounter Plan of Treatment Upcoming Encounters Date Type Department Care Team (Late st Contact Info) Description 01/23/2024 16:00 EST Office Visit [facility] Neurology Clinic [address] [place] [address] Scott Esquivel MD [address] [facility] [address] [place] [address] documented as of this encounter Visit Diagnoses Diagnosis Congenital quadriplegia ([facility])- Primary Congenital quadriplegia documented in this encounter Care Teams Transitions Rn Care Coordinator Relationship Specialty Start Date End Date Lucy Elizabeth MD [address] [place] [phone] PCP - General 09/28/08 03/08/21 documented as of this encounter
--- OUTSIDE RECORDS SUMMARY | 2023-12-21 00:38 | XMS_ITS | Encounter Summary ---
Author Organization [facility] Address [address] [place] [address] Care Team Providers Care Supervisor Adult Education Name Role Phone Unavailable Primary Care Provider Unavailabl e Encounter Details Date Type Department Care Team (Latest Contact Info) Description 01/17/2008 15:25 EST Hospital Encounter [facility] [address] [place] [address] Naga Melendez MD [address] [place] [address] Discharge Disposition: Auto Discharge Social History Tobacco [...] [facility] [address] [place] [address] Scott Esquivel MD [address] [facility] [address] [place] [address] documented as of this encounter Visit Diagnoses Not on filedocumented in this encounter
--- OUTSIDE RECORDS SUMMARY | 2023-12-21 00:38 | XMS_ITS | Encounter Summary ---
Author Organization [facility] Address [address] [place] [address] Care Team Providers Care Retail Merchandiser Name Role Phone Lucy Elizabeth MD Primary Care Provider [phone] Encounter Details Date Type Department Care Team (Late st Contact Info) Description 01/02/2014 Results Only Health system Lab - Main [place] [address] [place] [address] Lucy Elizabeth MD [address] [place] [phone] Social History Tobacco Use Types Packs/Day Years Used Date Smoking Tobacco: Never Assessed Sex and Gender Information Value Date Recorded Sex Assigned at Not on file Gender Identity Male 06/12/2019 8:16 EDT Sexual Orientation Not on file documented as of this encounter Plan of Treatment Upcoming Encounters Date Type Department Care Team (Late st Contact Info) Description 01/23/2024 16:00 EST Office Visit Health system Neurology Clinic [address] [place], [place] [address] Scott Esquivel MD [address] [facility] [address] [place] [address] documented as of this encounter Procedures Procedure Name Priority Date/Time Associated Diagnosis Comments POCT CHOLESTEROL LDL ([facility]) Routine 01/02/2014 12:17 EDT documented in this encounter Results * POCT CHOLESTEROL LDL ([facility]) (01/02/2014 12:17 EDT) LDL CHOLESTEROL - [facility] 65 60.00 - 100.00 mg/dl 01/27/2014 12:26 EST [facility] 01/02/2014 12:1 7 EDT 01/02/2014 12:17 EDT Lucy Elizabeth MD POINT OF CARE TEST O RDERABLES [facility] documented in this encounter Visit Diagnoses Not on filedocumented in this encounter Care Teams Retail Merchandiser Relationship Specialty Start Date End Date Lucy Elizabeth MD [address] [place] [phone] PCP - General 09/28/08 03/08/21 documented as of this encounter
--- OUTSIDE RECORDS SUMMARY | 2023-12-21 00:38 | XMS_ITS | Encounter Summary ---
Author Organization [facility] Address [address] [place] [address] Care Team Providers Care Title Examiner Name Role Phone Lucy Elziabeth MD Primary Care Provider [phone] Reason for Visit * Reason Comments Botox Injection Encounter Details Date Type Department Care Team (Latest Contact Info) Description 01/21/2010 14:00 EST Office Visit [facility] Rehabilitation Therapy - [phone] [place], [place] [address] Naga Melendez MD [address] [place] [address] Quadriplegic infantile cerebral palsy (HCC-CMS) (Primary Dx) [...] Medicine and Rehabilitation Naga Melendez M.D. [address] [place] [address] Discharge Instructions after Botulinum Toxin Injections Diet [...] for any questions you may have at [phone] x 2. The office is open Sunday-Sunday from 8:00 am to 5:00pm. On weekends or evenings, if you have a serious problem, please call your Foster Winder, Primary CarePhysician or go to your local Emergency Room. If for any reason a follow-up appointment was not provided or you need to reschedule an appointment, please call our office, the [facility] ([phone] or [phone]) or the [facility] ([phone] or [phone]) if that is where you are seen. [...] Info) Description 01/23/2024 16:[address] EST Office Visit [facility] Neurology Clinic [address] [place] [address] Scott Esquivel MD [address] [place] [address] [place] [phone] documented as of this encounter Visit Diagnoses Diagnosis Congenital quadriplegia ([facility])- Primary Congenital quadriplegia documented in this encounter Discontinued Medications Medication Sig Discontinue Reason Start Date End Da te metformin (GLUCOPHAGE) 500 mg tablet Take 500 mg by mouth daily. Patient Stopped Taking 12/03/2009 01/21/2010 documented as of this encounter Care Teams Title Examiner Relationship Specialty Start Date End Date Lucy Elizabeth MD [address] [place] [phone] PCP - General 09/28/08 03/08/21 documented as of this encounter
--- OUTSIDE RECORDS SUMMARY | 2023-12-21 00:38 | XMS_ITS | Encounter Summary ---
Author Organization [facility] Address [address] [place] [address] Care Team Providers Care Lean Engineer Name Role Phone Unavailable Primary Care Provider Unavailabl e Encounter Details Date Type Department Care Team (Late st Contact Info) Description 06/12/2008 14:48 EDT Hospital Encounter [facility] [address] [place] [address] Naga Melendez MD [address] [place] [address] [address] [place] [address] Social History Tobacco Use Types [...] Info) Description 01/23/2024 16:00 EST Office Visit [facility] Neurology Clinic [address] [place] [address] Scott Esquivel MD [address] [facility] [address] [address] [place] [address] documented as of this encounter Visit Diagnoses Not on filedocumented in this encounter
--- OUTSIDE RECORDS SUMMARY | 2023-12-21 00:38 | XMS_ITS | Encounter Summary ---
Author Organization [facility] Address [address] [place] [address] Care Team Providers Care Peoplesoft Business Analyst Name Role Phone Unavailable Primary Care Provider Unavailabl e Encounter Details Date Type Department Care Team (Late st Contact Info) Description 01/09/2008 Before PRISM Converted Visit ([facility]) [facility] - [facility] conversion [address] [place] [address] Naga Melendez MD [address] [place] [address] Social History Tobacco Use Types Packs/Day Years Used Date Smoking Tobacco: Never Assessed Sex and Gender Information Value Date Recorded Sex Assigned at Not on file Gender Identity Male 06/12/2019 8:16 EDT Sexual Orientation Not on file documented as of this encounter Procedure Notes * Naga Melendez MD - 09/26/2008 2239 EDT PHYSICAL MEDICINE / REHABILITATION OUTPATIENT FOLLOW [...] - Naga Melendez MD - Job ID: [id number] Doc ID: [id number] cc: MD Millicent Cooper PA documented in [...] his parents who are very involved in [facility] care. He lives in a VNA nursing home. had a recent shoulder injury several weeks [...] some supported work in the past through [facility] [employer]. PHYSICAL EXAMINATION On examination today, Janes [...] a total of one hour with the Wm today. Entire time was spent face to face, majority oneducation and coordination of care. Signed by Naga Melendez MD 01/13/2008 12:40 Naga Melendez MD - Naga Melendez MD - Job ID: [id number] Doc ID: [id number] cc: MD Millicent Cooper PA documented in this encounter Plan of Treatment Upcoming Encounters Date Type Department Care Team (Late st Contact Info) Description 01/23/2024 16:00 EST Office Visit [facility] Neurology Clinic [address] [place] [address] Scott Esquivel MD [address] [facility] [address] [place] [address] documented as of this encounter Visit Diagnoses Not on filedocumented in this encounter
--- OUTSIDE RECORDS SUMMARY | 2023-12-21 00:38 | XMS_ITS | Encounter Summary ---
Author Organization [facility] Address [address] [place] [address] Care Team Providers Care Manufacturing Maintenance Technician Name Role Phone Lucy Elizabeth MD Primary Care Provider [phone] Reason for Referral * Consult (Routine) - Denied Specialty Diagnoses / Procedures Referred By Rubina t Referred To Contact Diagnoses Congenital quadriplegia (HCC-CMS) Naga Melendez MD [address] [place] [address] Referral ID Status Reason Start Date Expiration Date V isits Requested Visits Authorized [id number] Denied Specialty Services Required 04/07/2010 1 0 Question Answer Medication to be Prior Authorized: BOTOX for next visit. Comments Botox 400 units Reason for Visit * Reason Comments Follow-up post botox Encounter Details Date Type Department Care Team (Latest Contact Info) Description 04/07/2010 15:30 EST Office Visit [facility] Rehabilitation Therapy - [place] [id number] [place] [address] Naga Melendez MD [address] [place] [address] Quadriplegic infantile cerebral palsy (HCC-CMS) (Primary [...] 04/12/2010 09:25 Naga Melendez MD - Naga Meelndez MD - [facility] Job ID: SM Doc ID: [id number] Ext Doc ID: [id number] cc: Lucy Elizabeth MD * Naga Melendez MD - 04/07/2010 1543 EST This office note has been dictated. documented in this encounter Plan of Treatment Upcoming Encounters Date Type Department Care Team (Late st Contact Info) Description 01/23/2024 16:00 EST Office Visit [facility] Neurology Clinic [address] [place] [address] Scott Esquivel MD [address] [place] [address] [place] [address] Scheduled Referrals Name Type Priority Associated Diagnoses Order Schedule AMB MEDICATION PRIOR AUTHORIZATION Outpatient Referral Routine Quadriplegic infantile cerebral palsy (HCC-CMS) Ordered: 04/07/2010 documented as of this encounter Visit Diagnoses Diagnosis Congenital quadriplegia (HCC-CMS)- Primary Congenital quadriplegia documented in this encounter Care Teams Manufacturing Maintenance Technician Relationship Specialty Start Date End Date Lucy Elizabeth MD [address] [place] [phone] PCP - General 09/28/08 03/08/21 documented as of this encounter
--- OUTSIDE RECORDS SUMMARY | 2023-12-21 00:38 | XMS_ITS | Encounter Summary ---
Author Organization [facility] Address [address] [place] [address] Care Team Providers Care Ultrasound Supervisor Name Role Phone Unavailable Primary Care Provider Unavailabl e Encounter Details Date Type Department Care Team (Late st Contact Info) Description 11/12/2001 17:35 EDT Hospital Encounter [facility] [address] [place] [address] Lucy Elizabeth MD [address] [place] [phone] Social History Tobacco Use Types Packs/Day [...] Visit [facility] [address] [place] [address] Scott Esquivel MD [address] [facility] [address] [place] [address] documented as of this encounter Visit Diagnoses Not on filedocumented in this encounter
--- OUTSIDE RECORDS SUMMARY | 2023-12-21 00:38 | XMS_ITS | Encounter Summary ---
Author Organization [facility] Address [address] [place] [address] Care Team Providers Care Software Implementation Specialist Name Role Phone Lucy Elizabeth MD Primary Care Provider [phone] Encounter Details Date Type Department Care Team (Late st Contact Info) Description 01/02/2014 Results Only [facility] Lab - Main [place] [address] [place] [address] Lucy Elizabeth MD [address] [place] [phone] Social History Tobacco Use Types Packs/Day [...] [facility] [address] [place], [place] [address] Scott Esquivel MD [address] [facility] [address] [place] [address] documented as of this encounter Procedures Procedure Name Priority Date/Time Associated Diagnosis Comments GLYCOHEMOGLOBIN POC - [facility] Routine 01/02/2014 12:17 EDT documented in this encounter Results * GLYCOHEMOGLOBIN POC - [facility] (01/02/2014 12:17 EDT) Hemoglobin A1c 5.5 4.00 - 6.00 % 01/27/2014 12:26 EST [facility] AVG CALCULATED GLUCOSE - [facility] 103 60.00 - 115.00 mg/dl 01/27/2014 12:26 [facility] 01/02/2014 12:1 7 EDT 01/02/2014 12:17 EDT Lucy Elizabeth MD CHEMISTRY & BLOOD GA S ORDERABLES [facility] documented in this encounter Visit Diagnoses Not on filedocumented in this encounter Care Teams Software Implementation Specialist Relationship Specialty Start Date End Date Lucy Elizabeth MD [address] [place] [phone] PCP - General 09/28/08 03/08/21 documented as of this encounter
--- OUTSIDE RECORDS SUMMARY | 2023-12-21 00:39 | XMS_ITS | Continuity of Care Document ---
Author Organization [place] - [facility], Medical Address [address] [place] [address] Assessment No assessment recorded. Plan of Treatment Reminders Order Date Submit Date Provider Last Modified By Organization Details Last Modified Time Details Appointments Office Visit 30 2024 03:15P M [facility] Not available Not available Not available Lab uric acid, serum or plasma 2023 025 [email or web address] [facility], [address] [place] [address], [address], 11/30/2023 14:35:50 HbA1c (hemoglo bin A1c), blood 2023 025 [email or web address] [facility], [address] [place] [address], [address], 11/30/2023 14:35:50 CMP, serum or plasma 2023 025 [email or web address] [facility], [address] [place] [address], [id number], 11/30/2023 14:35:50 microalb umin, urine 2023 025 [id number] [facility], [address] [place], [address], 11/30/2023 14:35:50 microalb umin/cre atinine, mass ratio, urine 2023 025 [email or web address] [facility], [address] [place] [address], [address], 11/30/2023 14:35:50 magnesiu m, QN, serum or plasma 2023 025 [email or web address] [facility], [address] [place] [address], [id number], 11/30/2023 14:35:50 lipid panel, serum 2023 025 [email or web address] [facility], [address] [place] [address], [address], 11/30/2023 14:35:50 CBC w/ auto diff 2023 025 [email or web address] [facility], [address] [place] [address], [address], 11/30/2023 14:35:49 PSA, serum or plasma 2023 025 [email or web address] [facility], [address] [place] [address], [address], 11/30/2023 14:35:50 25-hydro xyvitami n D2 + 25-hydro xyvitami n D3, QN, serum or plasma 2023 025 [email or web address] [facility], [address] [place] [address], [address], 11/30/2023 14:35:50 TSH, serum or plasma 2023 025 [facility], [address] [place] [address], [address], 11/30/2023 14:35:50 Referral None recorded . Procedures None recorded . Surgeries None recorded . Imaging None recorded . Medication Orders None recorded . Patient TargetsNo targets recorded. Patient InstructionsNo instructions recorded. Reason for Referral Home Health Referral for Cristel n of left ankle joint already has HH -- ADD PT eval, pt has ongoing left medial ankle pain and it seems to be from ankle collapsing in and putting pressure on. Please eval weight bearing/transfers, any brace that would be helpful? Referring Physician: Suyapa Duarte, Family Medicine, Encounter Date: 05/17/2023 Problems Name Problem SNOMED Code Status Onset Date Resolution Date Notes Provider Name and Address Organization Details Recorded Time Tinea cruris 836762273 Completed 201405/25/2017 Tinea cruris; Entered By: Suyapa Dior MD Maryana d By: Suyapa Dior MD Stop Reason: Resolved Tinea cruris; Entered By: Shefali Rasmussen PA-C Sig tha By: Shefali Rasmussen PA-C Sto p Reason: Removed Not Available [facility] 3 14:04:31 Pain in coccyx 52198807 Completed 202004/02/2021 Coccygea l pain; Entered By: Suyapa Dior MD Maryana d By: Suyapa Dior MD Not Available [facility] 3 14:04:31 Impaired glucose toleranc e 4760379 Completed 201104/16/2022 PREDIABE MIKI; Entered By: Bao mckeon RN [place]ana d By: Bao mckeon RN Stop Reason: Removed PREDIABE MIKI; Entered By: Lucy Elizabeth MD Maryana d By: Lucy Elizabeth MD Stop Reason: Resolved Not Available [facility] 3 14:04:32 Hypercal cemia 03678986 Completed 201704/16/2022 Hypercal cemia; Entered By: Suyapa Dior MD Maryana d By: Suyapa Dior MD Stop Reason: Removed Hypercal cemia; Entered By: Suyapa Dior MD Maryana d By: Suyapa Dior MD Stop Reason: Resolved Not Available [facility] 3 14:04:32 Gout 51335015 Active 2011 GOUT; Entered By: Bao mckeon RN Maryana d By: Bao mckeon RN Not Available [facility] 3 14:04:32 Hypokale daysi 01198415 Active 2014 Hypokale daysi; Entered By: Suyapa Dior MD Maryana d By: Suyapa Dior MD Not Available [facility] 3 14:04:32 Obesity 617788229 Active 2017 Obesity; Entered By: Suyapa Dior MD Maryana d By: Suyapa Dior MD Not Available [facility] 3 14:04:32 Hyperten sive disorder 55179149 Active 2011 HYPERTEN MARISELA; Entered By: Bao mckeno RN Maryana d By: Bao mckeon RN Not Available [facility] 3 14:04:33 Vitamin D deficien cy 34991014 Active 2017 Vitamin D deficien cy; Entered By: Suyapa Dior MD Maryana d By: Suyapa Dior MD Not Available [facility] 3 14:04:33 Screenin g - health check Active 2013 [facility]; Entered By: Elaine Carpenter MA [place]ana d By: Shefali Rasmussen PA-C Not Available [facility] 3 14:04:33 Edema 410509337 Active 2019 Edema, bilatera l legs; Entered By: Suyapa Dior MD Maryana d By: Gema Lassiter MA Not Available [facility] 3 14:04:34 Hip pain 79447116 Active 2017 Hip pain, bilatera l; Entered By: Suyapa Dior MD Maryana d By: Suyapa Dior MD Not Available [facility] 3 14:04:34 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 Stop Reason: Resolved UTI; Entered By: Lucy Elizabeth MD Maryana d By: Lucy Elizabeth MD Annot ate: . Stop Reason: Removed Not Available [facility] 3 14:04:34 Seizure disorder 809071409 Active 2011 SEIZURE DISORDER ; Entered By: Bao mckeon RN Maryana d By: Bao mckeon RN Not Available [facility] 3 14:04:34 Irritabl e bowel syndrome 86721659 Active 2019 IBS (irritab le bowel syndrome ) - Diarrhea ; Entered By: Suyapa Dior MD Maryana d By: Suyapa Dior MD Not Available [facility] 3 14:04:35 Cerebral palsy 024884633 Active 2011 CEREBRAL PALSY; Entered By: Bao mckeon RN Maryana d By: Bao mckeon RN Annot ate: with spastic quadrapl egia Not Available [facility] 3 14:04:35 Diabetes mellitus 90409565 Completed 201204/16/2022 DIABETES MELLITUS ; Entered By: Lucy Elizabeth MD Maryana d By: Lucy Elizabeth MD Stop Reason: Changed Diabetes mellitus , border ne, controll ed; Entered By: Amirah Vila PA-C Sig tha By: Amirah Vila PA-C Sto p Reason: Changed Not Available [facility] 3 14:04:35 Open wound 607506561 Completed 201304/16/2022 OPEN WOUND UNSPEC SITE WITHOUT MENTION COMP; Entered By: Suyapa Dior MD Maryana d By: Suyapa Dior MD Stop Reason: Resolved OPEN WOUND UNSPEC SITE WITHOUT MENTION COMP; Entered By: Shefali Rasmussen PA-C Sig tha By: Shefali Rasmussen PA-C Sto p Reason: Removed Not Available [facility] 3 14:04:35 Neurogen ic urinary bladder 694929635 Active 2011 NEUROGEN IC BLADDER; Entered By: Bao mckeon RN Maryana d By: Bao mckeon RN Not Available [facility] 3 14:04:36 Upper respirat ory infectio n 02850468 Completed 201304/16/2022 URI; Entered By: Suyapa Dior MD Maryana d By: Suyapa Dior MD Stop Reason: Resolved URI; Entered By: Millicent King PA-C Sig tha By: Millicent Rothman p Reason: Removed Not Available [facility] 3 14:04:36 Lactose intolera nce Active 2011 LACTOSE INTOLERA NCE; Entered By: Bao mckeon RN Maryana d By: Bao mckeon RN Not Available [facility] 3 14:04:37 Urge incontin ence of urine 56445758 Active 2021 Urge incontin ence of urine; Entered By: Suyapa Dior MD Maryana d By: Suyapa Dior MD Not Available [facility] 3 14:04:37 Hypomagn esemia 937712302 Active 2014 Hypomagn esemia; Entered By: Suyapa Dior MD Maryana d By: Suyapa Dior MD Not Available [facility] 3 14:04:38 Aftercar e Completed 201804/03/2018 Lacerati on without foreign body of unspecif ied part of head, subseque nt encounte r; Entered By: Amirah Vila PA-C Sig tha By: Amirah Vila PA-C Sto p Reason: Changed Lacerati on without foreign body of right great toe without damage to nail, subseque nt encounte r; Entered By: Brooke Briscoe Si gned By: Brooke Briscoe Not Available [facility] 3 14:04:38 Esotropi a 14861686 Active 2011 ESOTROPI A; Entered By: Bao mckeon RN Maryana d By: Bao mckeon RN Not Available [facility] 3 14:04:38 Supraspi natus tendinit is 156491370 Completed 202004/16/2022 Supraspi natus tendinit is, left; Entered By: Suyapa Dior MD Maryana d By: Suyapa Dior MD Stop Reason: Removed Supraspi natus tendinit is, left; Entered By: Suyapa Dior MD Maryana d By: Suyapa Dior MD Stop Reason: Resolved Not Available [facility] 3 14:04:39 Blood in urine 74194416 Completed 201404/16/2022 Hematuri a; Entered By: Suyapa Dior MD Maryana d By: Suyapa Dior MD Stop Reason: Resolved Hematur ia; Entered By: Shefali Rasmussen PA-C Sig tha By: Shefali Rasmussen PA-C Sto p Reason: Removed Not Available [facility] 3 14:04:39 Hypothyr oidism 44356247 Active 2011 HYPOTHYR OIDISM; Entered By: Bao mckeon RN Maryana d By: Bao mckeon RN Not Available [facility] 3 14:04:39 Hypercho lesterol emia 52892259 Active 2011 HYPERCHO LESTEROL EMIA; Entered By: Bao mckeon RN Maryana d By: Bao mckeon RN Stop Reason: Changed Hypercho lesterol emia; Entered By: Brooke Briscoe Si gned By: Brooke Briscoe Not Available [facility] 3 14:04:41 Acquired claw foot Active 2018 Claw foot, acquired ; Entered By: Amirah Vila PA-C Sig tha By: Amirah Vila PA-C Not Available [facility] 3 14:04:41 Scoliosi s deformit y of spine 173762652 Active 2011 SCOLIOSI S; Entered By: Bao mckeon RN Maryana d By: Bao mckeon RN Not Available [facility] 3 14:04:42 Asthma 440566163 Active 2020 Asthma; Entered By: Christopher Tanner Signed By: Christopher Tanner Not Available [facility] 3 14:04:43 Type 2 diabetes mellitus 55953030 Active 2012 Diabetes mellitus , type II; Entered By: Suyapa Dior MD Maryana d By: Suyapa Dior MD Not Available [facility] 3 14:04:43 Adult health examinat ion Active 2023 Suyapa Duarte MD [address] [place] [address], [address] , [place] - [facility] 4 13:29:44 Notes:Some problems listed i n Documents: #[id number], #[id number], #[id number] could not be added to this patient's chart. Please review these documents and add these problems to the patient's chart manually as needed. Problem Notes None recorded. Medical Equipment None Reported. Allergies Allergen ID Allergen Name Allergen Category Reaction Reaction Severity Criticality Documentation Date Start Date Code Code System Note Provider Name and Address Organization Details Recorded Time 75398 tomato allergeni c extract food nausea mild Not available 04/15/20222017 61211 9 RxNorm React ion: stoma ch upset ;Aaliyah rity: Mild; Comme nt: Enter ed By: Bennie gaytan RN Si gned By: Netta Duarte MD Un coded : Y; Not Available [facility] 3 04:37:29 19390 Bactrim medicatio n Not available Not available Not available 04/15/20222020 91187 9 RxNorm React ion: Angio edema , wheez ing;S everi ty: Criti rudy; Comme nt: Enter ed By: Aria chandler MA Si gned By: Aria chandler MA Ty pe: GPI C ode: [id number] Unco ded: N; Not Available [facility] 3 04:37:29 76828 aspirin medicatio n other severe Not available 04/15/20222012 1191 RxNorm React ion: GI upset ;Aaliyah rity: Sever e; Comme nt: Enter ed By: Марина torres RN Si gned By: Lucy Elizabeth MD Ty pe: GPI C ode: [id number] Unco ded: N; Not Available [facility] 3 04:37:29 81199 ibuprofen medicatio n other severe Not available 04/15/20222012 5640 RxNorm React ion: GI upset ;Aaliyah rity: Sever e; Comme nt: Enter ed By: Марина torres RN Si gned By: Lucy Elizabeth MD Ty pe: GPI C ode: [phone] [id number] Unco ded: N; [facility] [address], [place], [address], [facility] - [facility] 3 11:11:12 71827 naproxen medicatio n other mild Not available 04/15/20222017 7258 RxNorm Sever ity: Sever e; Comme nt: Enter ed By: Bennie gaytan RN Si gned By: Netta Duarte MD Un coded : Y; [facility] [address], [place], [address], [facility] - [facility] 3 11:11:26 94126 lactose Not available other severe Not available 04/15/20222012 6211 RxNorm React ion: GI upset ;Aaliyah rity: Sever e; Comme nt: Enter ed By: Марина torres RN Si gned By: Lucy Elizabeth MD Ty pe: GPI C ode: [id number] Unco ded: N; Not Available [facility] 3 04:37:30 25401 Sporanox medicatio n Not available Not available Not available 04/15/2022201182 6 RxNorm React ion: eleva dalia LFTs; Sever ity: Criti rudy; Comme nt: Enter ed By: Bao mcintosh RN Si gned By: Bao mcintosh RN Ty pe: GPI C ode: [phone] [id number] Unco ded: N; Not Available [facility] 3 04:37:30 31100 cow milk allergeni c extract food,medi cation Not available Not available Not available 11/08/2022 48861 5 RxNorm [facility] [address], [place], [address], [place] - [facility] 3 11:10:51 Medications Name Sig Start Date Stop Date Status Note LastModified by Organization Details LastModified Time amoxicill in 500 mg capsule TAKE ONE CAPSULE BY MOUTH EVERY 8 HOURS FOR 7 DAYS 01/03 completed Not Available Not Available Not Available oxybutyni n chloride ER 15 mg tablet,ex tended release 24 hr Take 1 tablet in AM, 1 at noon, and 2 at HS 12/03 completed Entered By: Drew fong By: Lucy Garnett MD Uncod ed: N BMN: N Not Available Not Available Not Available benzonata te 200 mg capsule one at bedtime as needed for cough 04/08 completed Entered By: Elaine fong By: Shefali Millan PA-C Unc placido: N BMN: N Not Available Not Available Not Available atenolol 100 mg tablet TAKE 1 TABLET BY MOUTH ONCE DAILY FOR BLOOD PRESSURE active Not Available Not Available No t Available Keflex 500 mg capsule Take one tablet three times per day 05/27 completed Entered By: Amirah Vila PA-C Sig tha By: Amirha Vila PA-C Unc placido: N BMN: N Not Available Not Available Not Available FreeStyle Lancets 28 gauge use daily as directed 04/01 completed Entered By: Calista fong By: Gema horne MA Uncod ed: Y BMN: N Not Available Not Available Not Available lisinopri l 20 mg tablet TAKE 1 TABLET ONCE DAILY FOR BLOOD PRESSURE STABILIZ ATION active Not Available Not Available No t Available allopurin ol 100 mg tablet TAKE 2 TABLETS BY MOUTH ONCE DAILY FOR GOUT 2023 active Not Available Not Available Not Avai lable divalproe x 500 mg tablet,de layed release TAKE 1 TABLET BY MOUTH TWICE A DAY active Not Available Not Available No t Available simvastat in 40 mg tablet TAKE ONE TABLET BY MOUTH DAILY AT BEDTIME FOR HIGH CHOLESTE ROL active Not Available Not Available No t Available Celebrex 200 mg capsule Take one tablet two times per day 12/03 completed Entered By: Drew Simons RN Maryana d By: Lucy Garnett MD Uncod ed: N BMN: N Not Available Not Available Not Available Bactroban 2 % topical cream apply three times a day 04/01 completed Entered By: Calista Adams MA Maryana d By: Gema horne MA Uncod ed: N BMN: N Not Available Not Available Not Available meloxicam 7.5 mg tablet Take one tablet one time per day 07/23 completed Entered By: Priti Morillo LPN Sign ed By: Priti Morillo LPN Clin ical Date: Rx ID: [id number] Authori zed By: Lucy Elizabeth MD Uncod ed: N BMN: N Not Available Not Available Not Available levothyro xine 100 mcg tablet TAKE 1 TABLET BY MOUTH ONCE DAILY FOR THYROID -- IDEALLY 1 HOUR BEFORE OTHER FOOD AND MEDS active Not Available Not Available No t Available magnesium oxide 400 mg (241.3 mg magnesium ) tablet One tab once daily for low magnesiu m 02/08 completed Entered By: Priti Morillo LPN Sign ed By: Priti Morillo LPN Unco ded: N BMN: N Not Available Not Available Not Available baclofen 10 mg tablet 1-2 tablet by mouth three times a day as needed for muscle spasms 06/20 completed Entered By: Suyapa Green MD Maryana d By: Suyapa Green MD Uncod ed: N BMN: N Not Available Not Available Not Available chromium picolinat e 200 mcg tablet 200mcg once daily 05/25 completed Entered By: Carmen Ohara RN Maryana d By: Suyapa Green MD Uncod ed: N BMN: N Not Available Not Available Not Available Levothroi d 125 mcg tablet Take one tablet one time per day 11/29 completed Entered By: Bao molina RN Maryana d By: Bao molina RN Clini rudy Date: Rx ID: [id number] Authori zed By: Lucy Elizabeth MD Uncod ed: N BMN: N Not Available Not Available Not Available oxybutyni n chloride ER 5 mg tablet,ex tended release 24 hr TAKE 1 TABLET BY MOUTH EVERY DAY IN THE MORNING active Not Available Not Available No t Available triamtere ne 75 mg-hydroc hlorothia zide 50 mg tablet TAKE 1 TABLET BY MOUTH IN THE MORNING FOR BLOOD PRESSURE AND SWELLING active Not Available Not Available No t Available ergocalci ferol (vitamin D2) 1,250 mcg (50,000 unit) capsule TAKE 1 CAPSULE BY MOUTH ONCE EVERY WEEK. 2023 active Not Available Not Available Not Avai lable Zinc-220 50 mg zinc (220 mg) capsule Take one tablet one time per day 07/23 completed Entered By: Annel Hernandez By: Lucy Garnett MD Uncod ed: N BMN: N Not Available Not Available Not Available Brewers Yeast tablet Take two tablets one time per day 12/03 completed Entered By: Drew fong By: Lucy Garnett MD Uncod ed: N BMN: N Not Available Not Available Not Available celecoxib 100 mg capsule TAKE 1 CAPSULE BY MOUTH ONCE DAILY NEEDED FOR ARTHRITI S PAIN THAT ISN'T BETTER WITH TYLENOL active Not Available Not Available No t Available metformin ER 500 mg tablet,ex tended release 24 hr TAKE 1 TABLET BY MOUTH ONCE A DAY FOR DIABETES active Not Available Not Available No t Available clotrimaz ole 1 % topical cream apply to effected area bid for 14 days 01/12 completed Entered By: Aria fong By: Suyapa Green MD Uncod ed: N BMN: N Not Available Not Available Not Available atenolol 50 mg tablet Take one tablet one time per day 02/19 completed Entered By: Bao fong By: Bao molina RN Clini rudy Date: 016 Rx ID: [id number] Authori zed By: Amirah Vila PA-C Unc placido: N BMN: N Not Available Not Available Not Available vitamin B complex capsule Take by oral route. active Not Available Not Available No t Available levothyro xine 112 mcg tablet Take one tablet one time per day 11/29 completed Entered By: Gema horne MA Maryana d By: Gema horne MA Clini rudy Date: Rx ID: [id number] Authori zed By: Amirah Vila PA-C Unc placido: N BMN: N Not Available Not Available Not Available [place]'s wort 300 mg capsule Take one tablet three times per day 07/23 completed Entered By: Lucy Garnett MD Maryana d By: Lucy Garnett MD Uncod ed: N BMN: N Not Available Not Available Not Available Bactrim DS 800 mg-160 mg tablet Take one tablet two times per day FOR 10 DAYS FOR UTI 06/07 completed Entered By: Lucy Garnett MD Maryana d By: Lucy Garnett MD Clini rudy Date: Rx ID: [id number] Authori zed By: Lucy Elizabeth MD Uncod ed: N BMN: N Not Available Not Available Not Available Mucinex 600 mg tablet, extended release One tab twice daily as needed for cough or congesti on 10/30 completed Entered By: Grecia Rodgers RN Maryana d By: Suyapa Green MD Uncod ed: N BMN: N Not Available Not Available Not Available Klor-Con M20 mEq tablet,ex tended release TAKE ONE TABLET BY MOUTH ONCE DAILY FOR LOW POTASSIU M active Not Available Not Available No t Available metformin ER 500 mg tablet,ex tended release 24hr (osmotic) at bedtime 08/21 completed Entered By: Bao molina RN Maryana d By: Bao molina RN Clini rudy Date: Rx ID: [id number] Authori zed By: Lucy Elizabeth MD Uncod ed: N BMN: N Not Available Not Available Not Available magnesium L-lactate ER 84 mg tablet,ex tended release TAKE 2 TABLETS BY MOUTH TWICE A DAY active Not Available Not Available No t Available potassium chloride 05/16 completed Not Available Not Available Not Available Fish Oil 340 mg-1,000 mg capsule 1 tablet by mouth twice a day 2012 active Not Available Not Available Not Avai lable Fish Oil 1,000 mg capsule One tab by mouth twice daily for choleste rol 07/23 completed Entered By: Lucy Garnett MD Maryana d By: Lucy Garnett MD Clini rudy Date: Rx ID: [id number] Authori zed By: Amirah Vila PA-C [facility] placido: N BMN: N Not Available Not Available Not Available FreeStyle Lite Strips use one daily as directed 04/01 completed Entered By: Calista Adams MA Maryana d By: Gema horne MA Uncod ed: Y BMN: N Not Available Not Available Not Available cori mackenzie 02/04 completed Entered By: Bao molina RN Maryana d By: Bao molina RN Clini rudy Date: Rx ID: [id number] Authori zed By: Lucy Elizabeth MD Uncod ed: Y BMN: N Not Available Not Available Not Available Calcarb with Vitamin D 600 mg-10 mcg (400 unit) tablet Take one tablet one time per day 07/23 completed Entered By: Annel Hernandez By: Lucy Garnett MD Uncod ed: N BMN: N Not Available Not Available Not Available Depend Underwear For Women Large Use twice a day 04/10 completed Entered By: Lucy Garnett MD Maryana d By: Lucy Garnett MD Uncod ed: Y BMN: N Not Available Not Available Not Available calcium-m agnesium- zinc 333 mg-133 mg-8.3 mg tablet Take 1 tablet once a day 2022 active Not Available Not Available Not Avai lable magnesium 400 mg (as magnesium oxide) capsule Take one tablet two times per day 05/02 completed Entered By: Drew Simons RN Maryana d By: Drew Simons RN Clini rudy Date: 015 Rx ID: [id number] Authori zed By: Lucy Elizabeth MD Uncod ed: N BMN: N Not Available Not Available Not Available calcium 400 mg-vit D3 83.3 mcg-magne sium 166.7 mg-zinc 16.7 mg capsule Take by oral route. 05/16 completed Not Available Not Available Not Available Vitals Date Recorded Body height Heart rate Oxygen saturation Oxygen saturation in Arterial blood by Pulse oximetry Provider Name and Address Organization Details Last Updated DateTime 11/30/2023 162.56 cm 67 /min 96 % 96 % NATHAN Kimbrough [facility] 11/30/2023 13:19:22 Social History None recorded. Functional Status None recorded. Mental Status None recorded. Family History Nothing Reported Notes:ADOPTED FAMILY HISTORY UNKNOWN Medical History No medical history recorded. Immunizations Vaccine Type Date Status Provider Name and Address Organization Details Recorded Time COVID-19, mRNA, LNP-S, PF, 30 mcg/0.3 mL dose 06/11/2020 completed Madeleine Chery null, [facility] 10/05/2022 09:04:11 COVID-19, mRNA, LNP-S, PF, 30 mcg/0.3 mL dose 07/02/2020 completed Madeleine Chery null, [facility] 10/05/2022 09:05:03 COVID-19, mRNA, LNP-S, PF, 30 mcg/0.3 mL dose 12/31/2020 completed Madeleine Chery null, [facility] 10/05/2022 09:05:53 COVID-19, mRNA, LNP-S, bivalent, PF, 30 mcg/0.3 mL dose 01/23/2022 completed Madeleine Chery null, [facility] 10/05/2022 09:06:55 COVID-19, mRNA, LNP-S, PF, 30 mcg/0.3 mL dose, diya-sucrose 08/12/2021 completed Madeleine Chery null, [facility] 10/05/2022 09:08:00 Influenza, split virus, quadrivalent, PF 12/08/2021 completed Madeleine Chery null, [facility] 10/05/2022 09:09:36 Tdap 05/27/2018 completed Madeleine Chery null, [place] - [facility] 10/05/2022 09:11:05 influenza, unspecified formulation 12/04/2022 completed Madeleine Chery null, [place] [facility] 05/15/2023 15:51:49 influenza, unspecified formulation 11/29/2012 completed Not Available [facility] 09/28/2022 08:19:14 pneumococcal polysaccharide PPV23 01/03/1997 completed Not Available [facility] 2022 04:45:32 pneumococcal polysaccharide PPV23 02/02/2007 completed Not Available [facility] 2022 04:45:32 influenza, unspecified formulation 04/10/2012 completed Not Available [facility] 09/28/2022 08:19:14 influenza, unspecified formulation 12/14/2010 completed Not Available [facility] 04/15/2022 04:45:32 influenza, unspecified formulation 11/05/2009 completed Not Available [facility] 04/15/2022 04:45:32 influenza, unspecified formulation 01/05/2014 completed Not Available [facility] 09/28/2022 08:19:14 influenza, unspecified formulation 01/02/2014 completed Not Available [facility] 09/28/2022 08:19:14 Td(adult) unspecified formulation 05/24/2007 completed Not Available [facility] 04/15/2022 04:45:33 influenza, unspecified formulation 01/12/2015 completed Not Available [facility] 09/28/2022 08:19:14 Influenza, split virus, trivalent, PF 11/30/2023 completed Calista Atkins, RMA null, [place] [facility] 12/05/2023 09:34:21 COVID-19, mRNA, LNP-S, PF, diya-sucrose, 30 mcg/0.3 mL 11/30/2023 cancelled Calista Atkins, RMA null, [place] [facility] 12/05/2023 09:34:21 zoster recombinant 11/30/2023 completed Calista At kins, RMA null, [place] [facility] 12/05/2023 09:34:21 Past Encounters Encounter ID Performer Location Encounter Start Date Encounter Closed Date Diagnosis/Indication Diagnosis SNOMED-CT Code Diagnosis ICD10 Code [id number] NATH[facility] [address] [facility] [place] TANVI BALES [id number] 11/30/2023 13:05:08 11/30/2023 14:08:25 Adult health examination 007871707 Z00.00 Edema 176365662 R60.9 Gout 71208595 M10.9 Hypercholesterolemia 136 41886 E78.00 Hypomagnesemia 998429083 E83.42 Hypothyroidism 92567911 E03.9 Type 2 jaime betes mellitus 71835986 E11.9 Vitamin D deficiency 347 61434 E55.9 Low back pain 109477820 M54.50 Administra tion of influenza vaccine 30827014 Z23 Administra tion of SARS-CoV-2 vaccine 8144011561 Z23 Health Concerns Section Related Observation LastModified by Organization Detai ls LastModified Time None Recorded Concern Status LastModified by Organization Details LastModified Time None Recorded Payers Encounter Date Sequence Insurance Name Policy Number Policy Conteh Covered Member ID Conteh Member ID Guarantor Name 11/30/2023 1 [facility] (MEDICARE REPLACEMENT/A DVANTAGE - PPO) [id number] Janes Gooden [id number] David Goodne 11/30/2023 2 [facility] (MEDICAID) Janes Gooden [id number] David Gooden Notes Date Note Type Note Provider Name and Address Organization Details Recorded Time 11/30/2023 text/html HPI Notes: Annual wellness. Having some new lower back pain. Shingles/ PCV 20 due, wants flu, declines covid Caregiver does not admin meds but states no changes. .......NATHAN Kimbrough RMA null, [place] - [facility] 12/05/2023 09:34:52
--- NOTE | 2023-12-21 06:45 | DI.RAD_ITS ---
Exam(s) XR FOOT LT COMPLETE EXAM: XR FOOT LT COMPLETE CLINICAL HISTORY: midfoot pain lt,? DJD,? Stress fx,m79.452. TECHNIQUE: 2D digital imaging was performed of the left foot. Three images were obtained. AP, obli que and lateral views were obtained. COMPARISON: CR XR FOOT LT COMPLETE from 10/25/2023 FINDINGS: There has been no change in alignment of the bones of the left foot. No acute or healing fracture is identified. No suspicious lytic or sclerotic lesions are seen. There is increased soft tissue swel ling of the foot. No soft tissue gas is seen. Vascular calcifications are present. IMPRESSION: 1. No acute fracture or dislocation. 2. Worsening soft tissue swelling of the foot. No soft tissue gas is present. DATA REPOSITORY: RADIATION DOSE DELIVERED:
== END 2023-12-21 00:49 ==
LOC: DI 00:29
PROVIDERS: PCP Family Medicine; Visit Provider Podiatrist
DX: M79.672 Pain in left foot (principal)
CPT/HCPCS: 73630

== ENCOUNTER → 2023-12-24 11:10 | Outpatient (BNVA) | payer MEDICARE, MEDICAID, SELFPAY | PROVIDERS: PCP Family Medicine; Referring Provider Family Medicine; Visit Provider Podiatrist | DX: M25.572 Pain in left ankle and joints of left foot; L97.529 Non-pressure chronic ulcer of other part of left foot with unspecified severity; G80.9 Cerebral palsy, unspecified | CPT/HCPCS: 20600; 20605; J0702; J1100 ==

== ENCOUNTER 2024-05-30 16:14 | Outpatient (CLI) | payer MEDICARE, MEDICAID, SELFPAY ==
[2024-05-30 12:56] LABS: Abs Immature Grans 0.03 10^3/uL (0.0-0.06); Absolute Basophil Count 0.03 10^3/uL (0.0-0.2); Absolute Eosinophil Count 0.06 10^3/uL (0.0-0.7); Absolute Lymphocyte Count 2.62 10^3/uL (1.2-3.4); Absolute Neutrophil Count 6.46 10^3/uL (1.2-6.7); Basophils % 0.3 %; Eosinophils % 0.6 %; HCT 40.6 % (40.0-50.0); HGB 13.2 g/dL (13.5-17.5); Immature Grans % 0.3 %; Lymphocytes % 26.2 %; MCH 30.8 pg (27.0-33.0); MCHC 32.5 % (32.0-36.0); MCV 95 fL (80-95); MPV 11.2 fL (8.0-11.0); Neutrophils % 64.6 %; Platelet Count 143 10^3/uL (130-400); RBC 4.28 10^6/uL (4.36-5.78); RDW 15.5 % (11.8-14.1)
[2024-05-30 13:10] LABS: Hemoglobin A1C 6.2 % (<5.7)
[2024-05-30 13:49] LABS: ALT 43 U/L (16-63); AST 80 U/L (15-37); Albumin 3.5 g/dL (3.4-5.0); Alkaline Phosphatase 60 U/L (46-116); Anion Gap 9.2 mmol/L (3-11); BUN 29 mg/dL (7-18); Bilirubin, Total 0.4 mg/dL (0.2-1.0); CO2 26.8 mmol/L (21.0-32.0); CREATININE 1.4 mg/dL (0.70-1.30); Chloride 110 mmol/L (98-107); Glucose 93 mg/dL (74-106); Magnesium 2.2 mg/dL; Potassium 4.8 mmol/L (3.5-5.1); Sodium 146 mmol/L (136-145); TSH 0.19 uIU/mL (0.36-3.74); Total Protein 6.9 g/dL (6.4-8.2); Uric Acid 4.7 mg/dL (3.5-7.2)
[2024-05-30 14:29] LABS: Calculated LDL 31 mg/dL (<100); Cholesterol 102 mg/dL (<200); HDL Cholesterol 57 mg/dL (>or=40); Triglyceride 73 mg/dL (<150); Vitamin D 25 Total 67 ng/mL (30-100)
[2024-06-02 09:52] LABS: PSA, Screening 1.7 ng/mL (<=3.5)
== END 2024-05-30 16:15 | disposition home or self-care (01) ==
LOC: LBO 16:15
PROVIDERS: PCP Family Medicine; Visit Provider Family Medicine
DX: E11.9 Type 2 diabetes mellitus without complications (principal); Z00.00 Encounter for general adult medical examination without abnormal findings; E03.9 Hypothyroidism, unspecified; E83.42 Hypomagnesemia; E78.00 Pure hypercholesterolemia, unspecified; M10.9 Gout, unspecified
CPT/HCPCS: 36415; 80053; 80061; 82306; 84153; 83036; 83735; 84443; 84550; 85025

== ENCOUNTER 2024-05-30 17:44 | Outpatient (REF) | payer MEDICARE, MEDICAID, SELFPAY ==
[2024-05-30 18:18] LABS: Microalb ug/mg Crea 4.5 ug/mg Cr
== END 2024-05-30 17:45 | disposition home or self-care (01) ==
LOC: LBN 17:44
PROVIDERS: PCP Family Medicine; Visit Provider Family Medicine
DX: E11.9 Type 2 diabetes mellitus without complications (principal)
CPT/HCPCS: 82043; 82570

== ENCOUNTER 2025-02-17 15:21 | Emergency (ER) | payer MEDICARE, MEDICAID, SELFPAY ==
--- NOTE | 2025-02-17 15:15 | DI.CT_ITS ---
Exam(s) CT ABDOMEN PELVIS W EXAM: CT ABDOMEN PELVIS W CLINICAL HISTORY: epigastric abdominal pain.. TECHNIQUE: Imaging Protocol: Axial computed tomography images with coronal and sagittal reformatted images were created and reviewed CONTRAST MATERIAL: Intravenous: Omnipaque 350 Contrast volume:75 ml Oral: no COMPARISON: No exams were available for comparison FINDINGS: ABDOMEN and PELVIS: There is streak artifact related to extensive spinal rods as well as patient arm positioning. Lung Bases: No acute findings. Liver: Normal density. No suspicious mass. Gallbladder and biliary tract: No radiodense calculus. No wall thickening or pericholecystic fluid. No biliary dilation. Pancreas: Normal density. No abnormal calcifications or inflammatory process. No evidence of mass. Spleen: Normal. Kidneys: Normal size, contour and axis. No radiodense stones. No obstructive uropathy. No suspicious masses seen. Adrenal glands: No masses seen. Vasculature: Abdominal aorta non-dilated. Soft tissues: Unremarkable. Bladder: No gross wall thickening. No calculi.No focal mass. Bowel: No obstruction. No bowel wall thickening. The cecum lies to the left of the midline in low pelvis, just above the bladder. The appendix projects along the right side of the bladder inferiorly down to the level of the rectum. The appendix is normal.There is a normal quantity of stool. Peritoneal cavity: No ascites. No focal collection. No mesenteric inflammatory response. No free air. Bones: Unremarkable for age. Reproductive organs: Unremarkable. Lymph nodes: No pathologically enlarged lymph nodes. IMPRESSION:: No acute abnormality in the abdomen or pelvis. RADIATION DOSE DELIVERED: Total DLP DATA REPOSITORY: All CT scans at this facility are submitted to the National Radiology Data Registry (NRDR) Dose Index Registry (DIR) with the [employer] (ACR). RADIATION OPTIMIZATION: All CT scans at this facility use at least one of these dose optimization techniques: automated exposure control; mA and/or kV adjustment per patient size (includes targeted exams where dose is matched to clinical indication); or iterative reconstruction.
[2025-02-17 15:17] VITALS: BP 119/48; PULSE 71; RESP 18; O2SAT 94
--- NOTE | 2025-02-17 15:29 | W.ED.GENAD ---
Discharge Plan Disposition Patient Disposition: Home Condition: Good Discharge Details Clinical Impression: Abdominal pain, Viral gastroenteritis Primary Care Provider: Suyapa Duarte ED Provider: Vijay Johnson Home Meds and New Rx's Prescriptions: No Action levothyroxine 100 mcg tablet 100 mcg PO DAILY atenolol 100 mg tablet 100 mg PO DAILY calcium-vit D3-mag gly-zinc 400 mg-83.3 mcg -166.7 mg capsule PO DAILY vvcajtr-wtniymkfr-ghxf 333-133-8.3 mg tablet PO DAILY ergocalciferol (vitamin D2) 1,250 mcg (50,000 unit) capsule 1,250 mcg PO QWEEK omega-3 fatty acids-fish oil 340-1,000 mg capsule PO BID potassium chloride [Klor-Con M20] 20 mEq tablet,ER particles/crystals 20 meq PO DAILY lisinopril 20 mg tablet 20 mg PO DAILY metformin 500 mg tablet extended release 24 hr 500 mg PO BID allopurinol 100 MG tablet 100 mg PO DAILY divalproex 500 MG tablet,delayed release (DR/EC) 500 mg PO BID simvastatin 40 MG tablet 40 mg PO DAILY oxybutynin chloride 5 MG tablet extended release 24hr 5 mg PO DAILY triamterene-hydrochlorothiazid [Maxzide] 1 EACH tablet 1 tab PO DAILY celecoxib [Celebrex] 100 MG capsule 100 mg PO BID magnesium L-lactate [Magtab] 84 MG tablet extended release 84 mg PO BID omega-3 fatty acids-fish oil [Fish Oil] 1 EACH capsule 1 cap PO BID potassium chloride 20 MEQ tablet extended release 20 meq PO BID Discharge Instructions Instructions: Abdominal pain Additional Instructions: You are seen in the emergency department for abdominal pain and leg spasms. We performed labs and a CAT scan of your abdomen and pelvis that were unremarkable. The exact cause of your symptoms is not clear but I suspect that you have some mild dehydration from viral GI bug/gastroenteritis. Your symptoms should continue to improve. You can take at 1000 mg of Tylenol/acetaminophen every 6 hours for pain or discomfort. If you develop worsening symptoms or if you have any other concerns then please return to the emergency department for reevaluation. Otherwise if you have lingering symptoms you can certainly follow-up with your primary care doctor as well. Stand Alone Forms: Portal Information Referrals: Suyapa Duarte [Primary Care Provider, Medicine] - 1 week HPI General Date/Time Provider Initiated Documentation: 02/17/25 15:25. Limitations to Documentation: no limitations. Information obtained by: patient and family. HPI Narrative: 54-year-old male history of cerebral palsy with spasticity in his extremities but still independent, hypothyroidism, diabetes, hypertension, gout who is presenting with abdominal pain. Has had a few days of worsening leg spasms and diarrhea. Diarrhea is gone away. No black or bloody stools. No constipation. Some nausea but no vomiting. Started with persistent abdominal pain today. Says its worst in his upper abdomen but all over. No urinary symptoms. Denying any other complaints. Related Data Home Medications ?Medication ?Instructions ?Recorded ?Confirmed allopurinol 100 mg tablet 100 mg PO DAILY 09/07/13 12/24/23 celecoxib 100 mg capsule (Celebrex) 100 mg PO BID 09/07/13 12/24/23 divalproex 500 mg tablet,delayed 500 mg PO BID 09/07/13 12/24/23 release magnesium L-lactate 84 mg 84 mg PO BID 09/07/13 12/24/23 tablet,extended release (Magtab) omega-3 fatty acids-fish oil 340 1 cap PO BID 09/07/13 12/24/23 mg-1,000 mg capsule (Fish Oil) oxybutynin chloride 5 mg 5 mg PO DAILY 09/07/13 12/24/23 tablet,extended release 24 hr potassium chloride 20 mEq 20 meq PO BID 09/07/13 12/24/23 tablet,extended release simvastatin 40 mg tablet 40 mg PO DAILY 09/07/13 12/24/23 triamterene 75 1 tab PO DAILY 09/07/13 12/24/23 mg-hydrochlorothiazide 50 mg tablet (Maxzide) atenolol 100 mg tablet 100 mg PO DAILY 01/10/23 12/24/23 calcium 400 mg-vit D3 83.3 cap PO DAILY 01/10/23 12/24/23 mcg-magnesium 166.7 mg-zinc 16.7 mg capsule fagisye-yqdlbkdbg-zrss 333 mg-133 tab PO DAILY 01/10/23 12/24/23 mg-8.3 mg tablet ergocalciferol (vitamin D2) 1,250 1,250 mcg PO QWEEK 01/10/23 12/24/23 mcg (50,000 unit) capsule lisinopril 20 mg tablet 20 mg PO DAILY 01/10/23 12/24/23 metformin 500 mg tablet,extended 500 mg PO BID 01/10/23 12/24/23 release 24 hr omega-3 fatty acids-fish oil 340 cap PO BID 01/10/23 12/24/23 mg-1,000 mg capsule potassium chloride 20 mEq 20 meq PO DAILY 01/10/23 12/24/23 tablet,extended release(part/cryst) (Klor-Con M) levothyroxine 100 mcg tablet 100 mcg PO DAILY 12/24/23 12/24/23 Allergies Allergy/AdvReac Type Severity Reaction Status Date / Time sulfamethoxazole (From Allergy Severe angioedema, Verified 01/24/23 10:24 Bactrim) wheezing trimethoprim (From Bactrim) Allergy Severe angioedema, Verified 01/24/23 10:24 wheezing naproxen Allergy Unknown Verified 01/24/23 10:24 aspirin AdvReac Severe Unverified 01/24/23 10:24 ibuprofen AdvReac Severe Unverified 01/24/23 10:24 itraconazole (From Sporanox) AdvReac Severe Unverified 01/24/23 10:24 lactose AdvReac Severe Diarrhea Unverified 01/24/23 10:24 tomato Allergy Mild Nausea Uncoded 01/24/23 10:24 General Stated Complaint: Abd Prob FABRICE: 3 Review of Systems Constitutional Constitutional: Denies chills, Denies fever(s) and Denies headache(s) Eyes Eyes: Denies change in vision ENT Ears, Nose, Mouth, and Throat: Denies headache(s) and Denies odynophagia Cardiovascular Cardiovascular: Denies chest pain and Denies dyspnea Respiratory Respiratory: Denies dyspnea Gastrointestinal Gastrointestinal: Reports abdominal pain, Reports diarrhea, Reports nausea, Denies odynophagia and Denies vomiting Genitourinary Genitourinary: Denies dysuria Musculoskeletal Musculoskeletal: Denies myalgias Integumentary/Breasts Skin/Breast: Denies changing lesions Neurologic Neurologic: Denies behavioral changes and Denies headache(s) Psychiatric Psychiatric: Denies behavioral changes Endocrine Endocrine: Denies heat intolerance Hematologic/Lymphatic Hematologic/Lymphatic: Denies lymphadenopathy Exam Const General: cooperative Nutritional Appearance: average body habitus Orientation: alert, awake and oriented x3 HENMT Head: normal to inspection Ears: external ears normal Mouth: moist mucous membranes Eyes Pupils: PERRL EOM: EOM intact bilaterally and No nystagmus Neck Neck: full ROM and no tracheal deviation Chest Chest: normal inspection of the chest Resp Auscultation: clear to auscultation bilaterally Cardio Rate: regular rate Rhythm: regular rhythm GI Inspection: normal to inspection Palpation: soft, no guarding and not rigid Other: Tender throughout the abdomen with no guarding, rigidity, or rebound Back/Spine/Pelvis Back: No no CVA tenderness Thoracic/Lumbar Spine: thoracic and lumbar spine normal to inspection Skin General skin exam: no rashes or lesions noted Neuro General: patient alert, patient awake and patient oriented x3 Cranial Nerves: CN's II-XI intact bilaterally, PERRL and no nystagmus Cognition: normal cognition Motor: muscle tone normal throughout and strength 5/5 throughout Sensory Exam: no sensory deficits noted Extrem General: normal to inspection Course Vital Signs Vital signs: Vital Signs Pulse 71 02/17/25 15:17 Respiratory Rate 18 02/17/25 15:17 Blood Pressure 119/48 L 02/17/25 15:17 Pulse Oximetry 94 02/17/25 15:17 Pulse 71 02/17/25 15:17 Respiratory Rate 18 02/17/25 15:17 Blood Pressure 119/48 L 02/17/25 15:17 Pulse Oximetry 94 02/17/25 15:17 Medical Decision Making 54-year-old male presents with abdominal pain. Could represent appendicitis or other intra-abdominal abscess and will get CT ab pelvis to further evaluate. Will get biliary labs. Will get broad labs to look for electrolyte or metabolic cause of the patient's symptoms. Could be abdominal cramping from a viral gastroenteritis but this to be a diagnosis of exclusion. Will give IV analgesia and IV fluids while awaiting initial testing and reevaluate. 538pm reeval. Labs and CT abdomen pelvis unremarkable. Pain resolved after Toradol. Suspect viral gastroenteritis. Feels better and tolerating p.o. Will discharge with return precautions. Medical Records Medical records reviewed: Yes I reviewed the patient's medical records. Imaging Data Radiologic Study: Attestation: I personally reviewed and interpreted this imaging study as follows: Imaging: CT Scan (abd and pelvis) My impression: Unremarkable Radiologist's impression: EXAM: CT ABDOMEN PELVIS W CLINICAL HISTORY: epigastric abdominal pain.. TECHNIQUE: Imaging Protocol: Axial computed tomography images with coronal and sagittal reformatted images were created and reviewed CONTRAST MATERIAL: Intravenous: Omnipaque 350 Contrast volume:75 ml Oral: no COMPARISON: No exams were available for comparison FINDINGS: ABDOMEN and PELVIS: There is streak artifact related to extensive spinal rods as well as patient arm positioning. Lung Bases: No acute findings. Liver: Normal density. No suspicious mass. Gallbladder and biliary tract: No radiodense calculus. No wall thickening or pericholecystic fluid. No biliary dilation. Pancreas: Normal density. No abnormal calcifications or inflammatory process. No evidence of mass. Spleen: Normal. Kidneys: Normal size, contour and axis. No radiodense stones. No obstructive uropathy. No suspicious masses seen. Adrenal glands: No masses seen. Vasculature: Abdominal aorta non-dilated. Soft tissues: Unremarkable. Bladder: No gross wall thickening. No calculi.No focal mass. Bowel: No obstruction. No bowel wall thickening. The cecum lies to the left of the midline in low pelvis, just above the bladder. The appendix projects along the right side of the bladder inferiorly down to the level of the rectum. The appendix is normal.There is a normal quantity of stool. Peritoneal cavity: No ascites. No focal collection. No mesenteric inflammatory response. No free air. Bones: Unremarkable for age. Reproductive organs: Unremarkable. Lymph nodes: No pathologically enlarged lymph nodes. IMPRESSION:: No acute abnormality in the abdomen or pelvis. Lab Data Lab results reviewed: Yes I reviewed the patient's lab results. Labs: Labs grossly unremarkable [facility] All Active Problems (Updated 02/17/25 @ 17:41 by Vijay Johnson MD) Viral gastroenteritis (Acute) Abdominal pain (Acute) Pain in joint, foot, left (Acute) Ulcer of left foot (Acute) Pain in left foot (Acute) PVD (peripheral vascular disease) (Chronic) Long toenail (Acute) Pain and swelling of left ankle (Acute) Contusion of left foot (Acute) Pes planus of both feet (Acute) Lactose intolerance (Acute) Urge incontinence of urine (Acute) Scoliosis deformity of spine (Acute) Acquired claw foot (Acute) Hip pain (Acute) Neurogenic bladder (Acute) Irritable bowel syndrome with alternating bowel habits (Acute) Asthma (Chronic) Esotropia (Acute) Seizure disorder (Chronic) Tetraplegia (Acute) Cerebral palsy (Acute) Obesity (Chronic) Hypercholesterolemia (Acute) Type 2 diabetes mellitus (Acute) Hypothyroidism (Chronic) Medical History Edema of both legs Hypertensive disorder Hypokalemia Hypomagnesemia Gout Vitamin D deficiency Surgical History Status post hip surgery Left hip H/O bilateral inguinal hernia repair Social History Smoking/Tobacco Use Status: Never Smoking risk assessment performed?: Yes Drug use: Never Adopted: Yes (unknown family history)
[2025-02-17 16:18] LABS: COVID-19 PCR Negative (Negative); RSV PCR Negative (Negative)
[2025-02-17] MEDS: Ondansetron 4 MG/2 ML VIAL IVP (16:46)
[2025-02-17] MEDS: Normal Saline 1,000 ML 1000 ML IV (16:46)
[2025-02-17 16:53] LABS: Abs Immature Grans 0.02 10^3/uL (0.0-0.06); HCT 43.8 % (40.0-50.0); HGB 14.3 g/dL (13.5-17.5); Immature Grans % 0.2 %; MCH 29.5 pg (27.0-33.0); MCHC 32.6 % (32.0-36.0); MCV 91 fL (80-95); MPV 11.3 fL (8.0-11.0); Platelet Count 178 10^3/uL (130-400); RBC 4.84 10^6/uL (4.36-5.78); RDW 14.2 % (11.8-14.1); RDW-SD 46.8 fL; WBC 8.80 10^3/uL (4.4-10.8)
[2025-02-17] MEDS: Ketorolac 30 MG/ML VIAL IVP (16:53)
[2025-02-17] MEDS: Normal Saline Flush 10 ML SYR IVP (17:06)
[2025-02-17] MEDS: Omnipaque 350 MG/ML 100 ML BTL IJ (17:07)
[2025-02-17] MEDS: Normal Saline - Diluent 50 ML VIAL IJ (17:07)
[2025-02-17 17:09] LABS: Lipase 34 U/L (<53); Magnesium 1.9 mg/dL (1.6-2.6)
[2025-02-17 17:11] LABS: ALT 31 U/L (10-49); AST 48 U/L (<34); Albumin 4.4 g/dL (3.2-5.0); Alkaline Phosphatase 70 U/L (46-116); Anion Gap 8.8 mmol/L (3-11); BUN 21 mg/dL (9-23); Bilirubin, Total 0.4 mg/dL (0.2-1.2); CO2 29.2 mmol/L (20.0-31.0); Calcium 10.2 mg/dL (8.3-10.6); Chloride 105 mmol/L (98-107); Glucose 109 mg/dL (74-106); Potassium 4.2 mmol/L (3.5-5.1); Sodium 143 mmol/L (136-145); Total Protein 7.5 g/dL (5.7-8.2)
[2025-02-17 19:23] VITALS: BP 115/72; PULSE 72; TEMP 35; O2SAT 94
== END 2025-02-17 19:39 | disposition home or self-care (01) ==
PROVIDERS: Emergency Provider Student in an Organized Health Care Education/Training Program; PCP Family Medicine
DX: A08.4 Viral intestinal infection, unspecified (principal); E11.9 Type 2 diabetes mellitus without complications; E03.9 Hypothyroidism, unspecified; G80.8 Other cerebral palsy
CPT/HCPCS: 80053; 83690; 87637; 96374; 96375; 99285; 74177; 83735; 84100; 85025; J1885; J2405; J3490